=== PATIENT | male | born 1955 | race Caucasian/White ===

== ENCOUNTER 2020-05-17 10:00 | Outpatient (RCR) | payer OTHER, SELFPAY | END 2020-05-29 14:51 | disposition other institution (70) | LOC: HO.PT 10:00 | PROVIDERS: Visit Provider Physician Assistant | DX: M54.16 Radiculopathy, lumbar region (principal) | CPT/HCPCS: 97110; 97140; 97161 ==

== ENCOUNTER 2020-07-16 10:20 | Outpatient (REF) | payer SELFPAY ==
[2020-07-16 11:59] LABS: Cholesterol 111 mg/dL
== END 2020-07-16 10:21 | disposition home or self-care (01) ==
LOC: HO.LNC 10:20
PROVIDERS: Visit Provider Pathology Anatomic Pathology & Clinical Pathology
DX: Z13.89 Encounter for screening for other disorder (principal)
CPT/HCPCS: 82465

== ENCOUNTER 2020-08-11 08:07 | Outpatient (REF) | payer OTHER, SELFPAY ==
[2020-08-11 09:02] LABS: MANUAL DIFF FLAG NO
[2020-08-11 09:05] LABS: Basophils Absolute Auto 0.1 X10*3/uL (0.0-0.2); Eosinophils Absolute Auto 0.2 X10*3/uL (0.0-0.4); Eosinophils Percent Auto 3.5 % (0-4); Hematocrit 47.8 % (42-52); Imm Gran Abs Auto 0.03 X10*3/uL (0.00-0.03); Imm Gran Pct Auto 0.5 % (0.0-0.4); Lymphocytes Absolute Auto 1.4 X10*3/uL (1.2-4.9); Lymphocytes Percent Auto 24.7 % (20-40); Mean Corpuscular HGB Conc 33.5 g/dl (31.0-36.0); Mean Corpuscular Hemoglobin 29.1 pg (27.0-33.0); Mean Corpuscular Volume 87.1 fL (80-98); Monocytes Absolute Auto 0.6 X10*3/uL (0.1-1.2); Monocytes Percent Auto 9.8 % (2-11); Neutrophils Absolute Auto 3.5 X10*3/uL (2.0-8.3); Neutrophils Percent Auto 60.5 % (45-73); Platelet Count 244 X10*3/uL (160-400); Red Blood Count 5.49 X10*6/uL (4.60-5.80); White Blood Count 5.7 X10*3/uL (4.8-10.8)
[2020-08-11 09:27] LABS: Estimated Average Glucose 177 mg/dL; Hemoglobin A1c % 7.8 %
[2020-08-11 09:38] LABS: Alanine Aminotransferase 23 U/L (0-40); Albumin Level 4.4 g/dL (3.5-5.0); Alkaline Phosphatase 59 U/L (39-117); Anion Gap 15 (12-20); Aspartate Amino Transferase 22 U/L (5-37); Bilirubin Total 1.3 mg/dL (0.0-1.0); Blood Urea Nitrogen 31 mg/dL (9-16); Calcium 9.5 mg/dL (8.4-10.2); Carbon Dioxide 26 mmol/L (22-29); Chloride 103 mmol/L (96-108); Cholesterol 139 mg/dL; Estimated Glomerular Filt Rate 58; Glucose Fasting 194 mg/dL (60-99); HDL Cholesterol 39 mg/dL; Iron 126 mcg/dL (45-160); LDL Cholesterol Calculated 83 mg/dl; Percent Iron Saturation 36 % (15-50); Potassium 4.5 mmol/l (3.3-5.1); Sodium 139 mmol/L (135-145); Total Iron Binding Capacity 354 mcg/dL (228-428); Total Protein 6.5 g/dL (6.5-8.0); Triglycerides 85 mg/dL; Unsaturated Iron Binding 228 ug/dL
[2020-08-11 10:01] LABS: Creatinine Urine 137.83 mg/dL; Ferritin 28 ng/mL (20-250); Microalbumin Urine < 5.0 mg/L; Prostate Specific Antigen Scr 1.52 ng/mL (<0.05-4.0); TSH reflex Free T4 2.23 mIU/mL (0.32-4.0)
== END 2020-08-11 08:08 | disposition home or self-care (01) ==
LOC: HO.LAB 08:07
PROVIDERS: Nurse Practitioner Family; PCP Internal Medicine; Visit Provider Nurse Practitioner Gerontology
DX: Z00.00 Encounter for general adult medical examination without abnormal findings (principal); E11.42 Type 2 diabetes mellitus with diabetic polyneuropathy; E61.1 Iron deficiency; Z12.5 Encounter for screening for malignant neoplasm of prostate
CPT/HCPCS: 36415; 80053; 80061; 82043; 82728; 83036; 83540; 84153; 84443; 85025

== ENCOUNTER → 2020-08-13 09:48 | Outpatient (BNVA) | payer OTHER, SELFPAY | PROVIDERS: PCP Internal Medicine; Referring Provider Internal Medicine; Visit Provider Nurse Practitioner Gerontology | DX: E11.42 Type 2 diabetes mellitus with diabetic polyneuropathy (principal); E78.5 Hyperlipidemia, unspecified; I10 Essential (primary) hypertension; Z79.4 Long term (current) use of insulin; Z79.899 Other long term (current) drug therapy | CPT/HCPCS: 82947; 99212 ==

== ENCOUNTER 2020-09-17 22:23 | Emergency (ER) | payer OTHER, SELFPAY ==
--- NOTE | ~2020-09-17 | XR_ITS ---
EXAMINATION: XR FINGER, LEFT CLINICAL INFORMATION: Left index finger injury COMPARISON: 10/02/2019 TECHNIQUE: Three views of the left index finger. FINDINGS: The bones and soft tissues are normal. No fracture. Alignment is anatomic. Joint spaces are maintained. XR/XR finger LT min 2V IMPRESSION: No acute osseous abnormality.
[2020-09-17 22:28] VITALS: BP 165/75; PULSE 79; RESP 18; TEMP 37; O2SAT 100; BMI 25.7
[2020-09-18 01:23] VITALS: BP 126/75; PULSE 74; RESP 18; TEMP 37.1; O2SAT 97
[2020-09-18 02:12] VITALS: BP 142/79; PULSE 69; RESP 16; O2SAT 98
--- NOTE | 2020-09-18 02:26 | ED_ITS ---
HPI - Extremity Problem General Chief complaint: Extremity Injury, Upper Stated complaint: Hand pain Time Seen by Provider: 09/18/20 02:26 Source: patient Mode of arrival: ambulatory History of Present Illness HPI Narrative: This is a 64-year-old male who presents with having ?jammed his left index finger? on either the fence earlier than this evening and states that he was having initially some difficulty bending his finger at the MCP, but states that since that time it is gradually improved and now he states he has full range of motion with pain only at 3/10. Related Data Home Medications Medication Instructions Recorded Confirmed ferrous sulfate 325 mg (65 mg 325 mg PO DAILY 06/06/20 08/13/20 iron) tablet multivitamin 1 tab PO DAILY 06/06/20 08/13/20 omega-3 fatty acids 1,000 mg 1,000 mg PO DAILY 06/06/20 08/13/20 capsule omeprazole 20 mg capsule,delayed 20 mg PO DAILY 06/06/20 08/13/20 release Previous Rx's Medication Instructions Recorded atorvastatin 20 mg tablet 20 mg PO DAILY 90 Days #90 tab 05/20/20 lisinopril 10 mg tablet 10 mg PO DAILY 90 Days #90 tab 05/20/20 hydrochlorothiazide 25 mg tablet 25 mg PO DAILY 90 Days #90 tab 05/31/20 blood sugar diagnostic #300 ea 07/04/20 lancets 28 gauge #300 ea 07/04/20 dulaglutide 0.75 mg/0.5 mL 0.75 mg SUBCUT QWEEK 84 Days #6 ml 08/13/20 subcutaneous pen injector metformin 1,000 mg tablet 1,000 mg PO BID 90 Days #180 tab 08/13/20 Allergies Allergy/AdvReac Type Severity Reaction Status Date / Time No Known Allergies Allergy Verified 09/17/20 22:28 [No Known Allergies*] Review of Systems Review of Systems: Pertinent positives and negatives as stated in HPI 10 point review of systems is otherwise negative. [facility] Past Medical History Source: nursing notes reviewed Medical History Diabetes Enlarged prostate HTN (hypertension) Hyperlipidemia Hyperlipidemia LDL goal <100 Iron deficiency Renal insufficiency Subjective memory complaints Type 2 diabetes mellitus with diabetic polyneuropathy Surgical History History of foot surgery Family History Family History Father Diabetes Mother Lung cancer Son No problems noted. Son No problems noted. Son No problems noted. Son No problems noted. Son No problems noted. Son No problems noted. Daughter No problems noted. Daughter No problems noted. Paternal Grandmother Diabetes Social History Social History Household Members: Spouse Alcohol intake: current Alcohol intake frequency: holidays/special occasions only Alcohol type: beer, wine, hard liquor and other Smoking Status: Never smoker Use of substances other than those prescribed or required for medical reasons: No Advance Directives: No Physical Exam Vital Signs: Vital Signs: Last Vital Signs Temp 98.8 F 09/18/20 01:23 Pulse 69 09/18/20 02:12 Resp 16 09/18/20 02:12 BP 142/79 H 09/18/20 02:12 Pulse Ox 98 09/18/20 02:12 Body Mass Index 25.7 VITAL SIGNS: Reviewed. GENERAL: Well developed, well nourished, in no acute distress. NOSE: Nares patent bilateral OROPHARYNX: no oral lesions noted, posterior pharynx clear NECK: Supple, no adenopathy LUNGS: Normal breath sounds. No adventitious sounds or accessory muscle use. SpO2<98> CARDIOVASCULAR: Regular rate and rhythm without noted murmurs ABDOMEN: Soft, non-tender, non-distended with bowel sounds. LEFT INDEX FINGER: No obvious deformity, capillary refill less than 3 seconds, mild tenderness palpation at the MCP but full range of motion noted NEUROLOGIC: Alert and oriented x 4. Strength and sensation to light touch were grossly intact x 4. Course Course Course Narrative: This is a 64-year-old male with history and clinical presentation consistent with jammed finger which was further corroborated by x- rays that were negative for dislocation or fracture. Patient was informed of results and discharged in stable condition. Discharge Plan Discharge Clinical Impression: Jammed interphalangeal joint of finger of left hand Qualifiers: Encounter type: initial encounter Qualified Code(s): S69.92XA - Unspecified injury of left wrist, hand and finger(s), initial encounter Patient Disposition: Home, Self-Care Instructions: Jammed Finger (ED) Additional Instructions: Resume all home medications as prescribed. Continue to maintain normal range of motion of the injured finger to prevent stiffness. Do not hesitate to return to the emergency department for any acute worsening of your symptoms. Prescriptions: No Action atorvastatin 20 mg tablet 20 mg PO DAILY 90 Days Qty: 90 RF: 1 lisinopril 10 mg tablet 10 mg PO DAILY 90 Days Qty: 90 RF: 1 hydrochlorothiazide 25 mg tablet 25 mg PO DAILY 90 Days Qty: 90 RF: 0 (DME) FreeStyle Lite Strips Strip See Rx Instructions .ROUTE .MEDSUPPLY Qty: 300 RF: 3 (DME) lancets [FreeStyle Lancets] 28 gauge misc See Rx Instructions .ROUTE .MEDSUPPLY Qty: 300 RF: 3 omeprazole 20 mg capsule,delayed release(DR/EC) 20 mg PO DAILY RF: 0 ferrous sulfate 325 mg (65 mg iron) tablet 325 mg PO DAILY RF: 0 omega-3 fatty acids [Fish Oil Concentrate] 1,000 mg capsule 1,000 mg PO DAILY RF: 0 multivitamin Tablet 1 tab PO DAILY RF: 0 Trulicity 0.75 mg/0.5 mL pen injector 0.75 mg subcut QWEEK 84 Days Qty: 6 RF: 1 metformin 1,000 mg tablet 1,000 mg PO BID 90 Days Qty: 180 RF: 1 Referrals: Caitlyn Bailey MD [Primary Care Provider] - 2 days (Re-evaluation after jamming finger left index.)
== END 2020-09-18 02:55 | disposition home or self-care (01) ==
PROVIDERS: Emergency Provider Student in an Organized Health Care Education/Training Program; PCP Internal Medicine
DX: S69.92XA Unspecified injury of left wrist, hand and finger(s), initial encounter (principal); W22.8XXA Striking against or struck by other objects, initial encounter; Y93.89 Activity, other specified; Y92.017 Garden or yard in single-family (private) house as the place of occurrence of the external cause; Y99.9 Unspecified external cause status
CPT/HCPCS: 73140; 99283; 99284

== ENCOUNTER 2020-11-17 10:25 | Outpatient (REF) | payer OTHER, SELFPAY ==
[2020-11-17 11:31] LABS: Estimated Average Glucose 169 mg/dL; Hemoglobin A1c % 7.5 %
== END 2020-11-17 10:26 | disposition home or self-care (01) ==
LOC: HO.LAB 10:25
PROVIDERS: PCP Internal Medicine; Visit Provider Nurse Practitioner Gerontology
DX: E11.42 Type 2 diabetes mellitus with diabetic polyneuropathy (principal)
CPT/HCPCS: 36415; 83036

== ENCOUNTER → 2020-11-19 09:49 | Outpatient (BNVA) | payer OTHER, SELFPAY | PROVIDERS: PCP Internal Medicine; Visit Provider Nurse Practitioner Gerontology | DX: E11.42 Type 2 diabetes mellitus with diabetic polyneuropathy (principal); E78.5 Hyperlipidemia, unspecified; Z68.25 Body mass index [BMI] 25.0-25.9, adult; Z79.84 Long term (current) use of oral hypoglycemic drugs; Z71.3 Dietary counseling and surveillance | CPT/HCPCS: 82947; 99212 ==

== ENCOUNTER 2020-12-05 11:17 | Outpatient (REF) | payer OTHER, SELFPAY ==
--- NOTE | ~2020-12-05 | XR_ITS ---
EXAMINATION: XR KNEE, LEFT CLINICAL INFORMATION: M25.562 - Pain in left knee Patient Shielded? COMPARISON: None TECHNIQUE: Four views of the left knee. FINDINGS: There is hardware in the distal femur and proximal tibia consistent with prior ACL repair. Hardware is intact. There is no fracture, dislocation, or bony destructive process. No periostitis. No definite suprapatellar effusion. Hoffa's fat pad appears normal. There is no focal joint narrowing medial or lateral compartment. No lateralization or tilting patella. There is mild spurring at the quadriceps insertion patella and at the inferior patellar pole. XR/XR knee LT 4V IMPRESSION: 1. Postsurgical changes consistent with prior ACL repair. No definite effusion. 2. No fracture, destructive process, or erosive changes. 3. Spurring quadriceps insertion and origin patellar tendon.
== END 2020-12-05 11:18 | disposition home or self-care (01) ==
LOC: HO.HMGCX 11:17
PROVIDERS: PCP Internal Medicine; Visit Provider Nurse Practitioner Family
DX: M25.562 Pain in left knee (principal)
CPT/HCPCS: 73564

== ENCOUNTER → 2021-02-18 08:58 | Outpatient (BNVA) | payer OTHER, SELFPAY | PROVIDERS: PCP Nurse Practitioner Family; Visit Provider Nurse Practitioner Gerontology | DX: E11.42 Type 2 diabetes mellitus with diabetic polyneuropathy (principal); D64.9 Anemia, unspecified; E78.5 Hyperlipidemia, unspecified; Z79.4 Long term (current) use of insulin; Z79.899 Other long term (current) drug therapy | CPT/HCPCS: 82947; 99212 ==

== ENCOUNTER 2021-06-08 07:51 | Outpatient (REF) | payer OTHER, SELFPAY ==
[2021-06-08 09:15] LABS: Alanine Aminotransferase 24 U/L (0-40); Albumin Level 4.3 g/dL (3.5-5.0); Alkaline Phosphatase 55 U/L (39-117); Anion Gap 12 (12-20); Aspartate Amino Transferase 22 U/L (5-37); Bilirubin Total 0.8 mg/dL (0.0-1.0); Blood Urea Nitrogen 40 mg/dL (9-16); Calcium 9.3 mg/dL (8.4-10.2); Carbon Dioxide 28 mmol/L (22-29); Chloride 106 mmol/L (96-108); Cholesterol 130 mg/dL; Estimated Glomerular Filt Rate 53; Glucose Fasting 171 mg/dL (60-99); HDL Cholesterol 36 mg/dL; LDL Cholesterol Calculated 81 mg/dl; Potassium 4.8 mmol/L (3.3-5.1); Sodium 141 mmol/L (135-145); Total Protein 6.3 g/dL (6.5-8.0); Triglycerides 67 mg/dL
[2021-06-08 09:29] LABS: Prostate Specific Antigen Scr 1.67 ng/mL (<0.05-4.0); TSH reflex Free T4 1.51 uIU/mL (0.32-4.0)
[2021-06-08 10:15] LABS: Creatinine Urine 203.69 mg/dL; Microalbum/Creatinine Ratio Ur 3.4 ug/mg cr
[2021-06-09 11:02] LABS: LDL Cholesterol Direct 80 mg/dL (<100)
== END 2021-06-08 07:52 | disposition home or self-care (01) ==
LOC: HO.LAB 07:51
PROVIDERS: Nurse Practitioner Gerontology; PCP Nurse Practitioner Family; Visit Provider Nurse Practitioner Family
DX: E11.42 Type 2 diabetes mellitus with diabetic polyneuropathy (principal); I10 Essential (primary) hypertension; Z12.5 Encounter for screening for malignant neoplasm of prostate
CPT/HCPCS: 36415; 80053; 80061; 82043; 83721; 84153; 84443

== ENCOUNTER → 2021-06-17 08:29 | Outpatient (BNVA) | payer OTHER, SELFPAY | PROVIDERS: PCP Nurse Practitioner Family; Visit Provider Nurse Practitioner Gerontology | DX: E11.42 Type 2 diabetes mellitus with diabetic polyneuropathy (principal); E78.5 Hyperlipidemia, unspecified | CPT/HCPCS: 82947; 83036; 99212 ==

== ENCOUNTER → 2021-07-04 10:56 | Outpatient (REF) | payer OTHER, SELFPAY ==
--- NOTE | 2021-07-04 10:58 | HM_ITS ---
Conclusion : 1. Patient was monitored for total of 3 days and 1 hour 2. Baseline rhythm iin NSR with average HR of 88 bpm 3. No significant bradycardia or pauses noted 4. Frequent sinus tachycardia with total burden of 29% of HR > 100 bpm 5. Total 2246 PVC accounting for 0.58% of total beats, c/w ocassional PVC 6. No patient reported events MTDD
== END ==
LOC: HO.CARD 10:56
PROVIDERS: Visit Provider Nurse Practitioner Family
DX: R00.1 Bradycardia, unspecified (principal)
CPT/HCPCS: 93242

== ENCOUNTER → 2021-07-24 13:24 | Outpatient (BNVA) | payer OTHER, SELFPAY | PROVIDERS: PCP Nurse Practitioner Family; Referring Provider Nurse Practitioner Family; Visit Provider Internal Medicine | DX: R00.1 Bradycardia, unspecified (principal); I49.3 Ventricular premature depolarization | CPT/HCPCS: 99202 ==

== ENCOUNTER 2021-09-16 07:48 | Outpatient (REF) | payer OTHER, SELFPAY ==
[2021-09-16 08:44] LABS: Anion Gap 13 (12-20); Blood Urea Nitrogen 26 mg/dL (9-16); Calcium 9.5 mg/dL (8.4-10.2); Carbon Dioxide 28 mmol/L (22-29); Chloride 105 mmol/L (96-108); Estimated Glomerular Filt Rate > 60; Potassium 4.5 mmol/L (3.3-5.1); Sodium 141 mmol/L (135-145)
[2021-09-16 09:19] LABS: Creatinine, mg/dL 66.21
[2021-09-16 09:26] LABS: Creatinine, 24Hr Urine 1.6 G/Day (1.0-2.0); Total Volume 24 Hour Urine 2450 mL
[2021-09-16 09:27] LABS: Creatinine (CrCl) 1.19 mg/dL (0.5-1.4); Creatinine Clearance 94.6 mL/min (85-125)
== END 2021-09-16 07:49 | disposition home or self-care (01) ==
LOC: HO.LAB 07:48
PROVIDERS: PCP Internal Medicine; Visit Provider Internal Medicine Hypertension Specialist
DX: N18.31 Chronic kidney disease, stage 3a (principal)
CPT/HCPCS: 36415; 80051; 82310; 82565; 82575; 84520

== ENCOUNTER 2021-12-09 08:43 | Outpatient (REF) | payer MEDICARE, OTHER, SELFPAY ==
[2021-12-09 09:38] LABS: Appearance Urine CLEAR; Color Urine YELLOW; Glucose Urine UA NEG (NEG); Leukocyte Esterase Urine NEG (NEG); Nitrite Urine NEG (NEG); Specific Gravity - Urine 1.025 (1.005-1.025); Urine Blood NEG (NEG); Urine Ketones NEG (NEG); Urine Protein NEG (NEG-TRACE)
[2021-12-09 10:06] LABS: Alanine Aminotransferase 28 U/L (0-40); Albumin Level 4.1 g/dL (3.5-5.0); Alkaline Phosphatase 59 U/L (39-117); Anion Gap 14 (12-20); Aspartate Amino Transferase 32 U/L (5-37); Bilirubin Total 0.8 mg/dL (0.0-1.0); Blood Urea Nitrogen 32 mg/dL (9-16); Calcium 9.3 mg/dL (8.4-10.2); Carbon Dioxide 25 mmol/L (22-29); Chloride 103 mmol/L (96-108); Cholesterol 132 mg/dL; Estimated Glomerular Filt Rate 58; Glucose Fasting 150 mg/dL (60-99); HDL Cholesterol 39 mg/dL; LDL Cholesterol Calculated 83 mg/dl; Potassium 4.1 mmol/L (3.3-5.1); Sodium 138 mmol/L (135-145); Total Protein 6.4 g/dL (6.5-8.0); Triglycerides 52 mg/dL
[2021-12-09 10:18] LABS: Prostate Specific Antigen Scr 1.81 ng/mL (<0.05-4.0); TSH reflex Free T4 1.51 uIU/mL (0.32-4.0)
== END 2021-12-09 08:44 | disposition home or self-care (01) ==
LOC: HO.LAB 08:43
PROVIDERS: PCP Nurse Practitioner Family; Visit Provider Nurse Practitioner Family
DX: Z13.89 Encounter for screening for other disorder (principal)
CPT/HCPCS: 36415; 80053; 80061; 81003; 84153; 84443

== ENCOUNTER 2021-12-09 11:23 | Outpatient (REF) | payer MEDICARE, OTHER, SELFPAY ==
--- NOTE | ~2021-12-09 | XR_ITS ---
EXAMINATION: XR ELBOW, LEFT CLINICAL INFORMATION: Pain. COMPARISON: None TECHNIQUE: AP, lateral, and oblique views of the left elbow. FINDINGS: The bones and soft tissues are normal. No fracture or joint effusion. Alignment is anatomic. Joint spaces are maintained. XR/XR elbow LT 2V IMPRESSION: Unremarkable left elbow exam
== END 2021-12-09 11:24 | disposition home or self-care (01) ==
LOC: HO.HMGCX 11:23
PROVIDERS: Visit Provider Nurse Practitioner Family
DX: Z00.00 Encounter for general adult medical examination without abnormal findings (principal); Z12.5 Encounter for screening for malignant neoplasm of prostate; M25.522 Pain in left elbow; E78.5 Hyperlipidemia, unspecified
CPT/HCPCS: 36415; 73070; 80053; 80061; 81003; 84153; 84443

== ENCOUNTER 2022-01-03 08:53 | Day surgery (SDC) | payer MEDICARE, OTHER, SELFPAY ==
[2021-12-27 14:05] VITALS: BMI 25.2
--- NOTE | 2022-01-02 09:38 | P.CONAN_ITS ---
Documented by User: Jenna Chinchilla NP 01/02/22 09:41 HPI - Anesthesia Eval Consult details Narrative: 66yo M for Upper Endoscopy PMFSH Active Problems Active Problems: All Active Problems (Updated 12/27/21 @ 14:04 by Shabnam Marshall RN) Physical exam (Acute) Screening PSA (prostate specific antigen) (Acute) Left knee pain (Acute) Elevated BUN (Acute) Physical exam (Acute) Bradycardia (Acute) PVC (premature ventricular contraction) (Acute) Elbow pain, left (Acute) HTN (hypertension) (Acute) Type 2 diabetes mellitus with diabetic polyneuropathy (Acute) Hyperlipidemia LDL goal <100 (Acute) Past Medical History Medical History Barretts esophagus Diabetes Enlarged prostate GERD (gastroesophageal reflux disease) Hyperlipidemia Iron deficiency Patellofemoral arthritis of left knee Renal insufficiency Subjective memory complaints Family History Family History Father Diabetes Mother Lung cancer Son No problems noted. Son No problems noted. Son No problems noted. Son No problems noted. Son No problems noted. Son No problems noted. Daughter No problems noted. Daughter No problems noted. Paternal Grandmother Diabetes Surgical History Surgical History History of foot surgery History of left knee surgery History of nasal surgery History of right inguinal hernia repair History of shoulder surgery History of tonsillectomy Hx of colonoscopy Hx of esophagogastroduodenoscopy Social History Social History Household Members: Spouse Housing: House Alcohol intake: current Alcohol intake frequency: holidays/special occasions only Alcohol type: beer, wine, hard liquor and other Patient Tobacco Use Status: Never used Tobacco e-Cigarette/Vaping Use: Never Used Second Hand Smoke Exposure: No Use of substances other than those prescribed or required for medical reasons: No Advance Directives: No Advance Directives Information Provided: Yes service: Yes Current occupational status: retired Cognitive needs: No Hearing needs: No Vision needs: No Meds Allergies Allergy/AdvReac Type Severity Reaction Status Date / Time No Known Allergies Allergy Verified 12/09/21 12:53 [No Known Allergies*] Home Medications Medication Instructions Recorded Confirmed Last Taken Type multivitamin 1 tab PO DAILY 06/06/20 12/27/21 Unknown History omega-3 fatty acids 1,000 mg 1,000 mg PO DAILY 06/06/20 12/27/21 Unknown History capsule (Fish Oil Concentrate) omeprazole 20 mg capsule,delayed 20 mg PO DAILY 06/06/20 12/27/21 Unknown History release antiarthritic combination no.2 900 mg PO 03/06/21 12/09/21 Unknown History mg tablet (glucosamine-chondroitin) Exam Exam Date and Time: January 02, 2022 0938 Height,Weight and Vital Signs: Height 6 ft 1 in Weight 86.75 kg Pertinent Lab Results Pertinent Lab Results: Laboratory Tests 12/09/21 09:04 Sodium 138 Potassium 4.1 Chloride 103 Carbon Dioxide 25 BUN 32 H Creatinine 1.25 Narrative Narrative: Holter 06/2021 Conclusion : 1. Patient was monitored for total of 3 days and 1 hour 2. Baseline rhythm iin NSR with average HR of 88 bpm 3. No significant bradycardia or pauses noted 4. Frequent sinus tachycardia with total burden of 29% of HR > 100 bpm 5. Total 2246 PVC accounting for 0.58% of total beats, c/w ocassional PVC 6. No patient reported events Assessment and Plan Assessment Anesthesia Assessment: Chart Reviewed Documented by User: Radha Brown MD 01/03/22 09:47 [facility] Active Problems Active Problems: All Active Problems (Updated 12/27/21 @ 14:04 by Shabnam Marshall RN) Physical exam (Acute) Screening PSA (prostate specific antigen) (Acute) Left knee pain (Acute) Elevated BUN (Acute) Physical exam (Acute) Bradycardia. HR down to 29- 31 when asleep per patient. Asymptomatic. Seen by cardiology. 3day Holter monitor. No significant bradycardia or pauses noted. No therapy recommended PVC (premature ventricular contraction) (Acute) Elbow pain, left (Acute) HTN (hypertension) (Acute) Type 2 diabetes mellitus with diabetic polyneuropathy (Acute) Hyperlipidemia LDL goal <100 (Acute) Past Medical History Medical History Barretts esophagus Diabetes Enlarged prostate GERD (gastroesophageal reflux disease) Hyperlipidemia Iron deficiency Patellofemoral arthritis of left knee Renal insufficiency Subjective memory complaints Family History Family History Father Diabetes Mother Lung cancer Son No problems noted. Son No problems noted. Son No problems noted. Son No problems noted. Son No problems noted. Son No problems noted. Daughter No problems noted. Daughter No problems noted. Paternal Grandmother Diabetes Family history of problems with anesthesia: No Surgical History Surgical History History of foot surgery History of left knee surgery History of nasal surgery History of right inguinal hernia repair History of shoulder surgery History of tonsillectomy Hx of colonoscopy Hx of esophagogastroduodenoscopy History of Problems with Anesthesia: No Social History Social History Household Members: Spouse Housing: House Alcohol intake: current Alcohol intake frequency: holidays/special occasions only Alcohol type: beer, wine, hard liquor and other Patient Tobacco Use Status: Never used Tobacco e-Cigarette/Vaping Use: Never Used Second Hand Smoke Exposure: No Use of substances other than those prescribed or required for medical reasons: No Advance Directives: No Advance Directives Information Provided: Yes service: Yes Current occupational status: retired Cognitive needs: No Hearing needs: No Vision needs: No Meds Allergies Allergy/AdvReac Type Severity Reaction Status Date / Time No Known Allergies Allergy Verified 12/09/21 12:53 [No Known Allergies*] Home Medications Medication Instructions Recorded Confirmed Last Taken Type multivitamin 1 tab PO DAILY 06/06/20 12/27/21 Unknown History omega-3 fatty acids 1,000 mg 1,000 mg PO DAILY 06/06/20 12/27/21 Unknown History capsule (Fish Oil Concentrate) omeprazole 20 mg capsule,delayed 20 mg PO DAILY 06/06/20 12/27/21 Unknown History release antiarthritic combination no.2 900 mg PO 03/06/21 12/09/21 Unknown History mg tablet (glucosamine-chondroitin) Exam Height,Weight and Vital Signs: Height 6 ft 1 in Weight 86.75 kg Vital Signs Temp Pulse Resp BP Pulse Ox O2 Del Method 01/03/22 09:17 96.9 F 79 15 99/66 97 Room Air Pertinent Lab Results Pertinent Lab Results: Laboratory Tests 12/09/21 09:04 Sodium 138 Potassium 4.1 Chloride 103 Carbon Dioxide 25 BUN 32 H Creatinine 1.25 01/03/22: POC 141 Airway Mallampati Class: I TM Dist: >3cm Neck ROM: Full Loose/Missing/Broken Teeth: No (Per patient ) Heart: RRR Lungs: CTAB Assessment and Plan Assessment Anesthesia Assessment: Anesthesia Plan Discussed Final Anesthetic Review Family History of Problems with Anesthesia: No History of Problems with Anesthesia: No NPO: Yes ASA Class: II Final Preanesthetic Review: No Changes in Pt Med Stat, Meds/Allgs Chart Reviewed, Consent Obtained/Reviewed and Anes Risks/Benef Reviewed Patient Risk: Intermediate Procedure Risk: Low Assessment/Block/Sedation in SS: Assess/Block/Sedation-SS Anesthetic Plan Anesthetic Plan: MAC: Disposition: Standard PACU
[2022-01-03 09:17] VITALS: BP 99/66; PULSE 79; RESP 15; TEMP 36.1; O2SAT 97; BMI 24.6
[2022-01-03] MEDS: Lactated Ringers 1,000 ML 100 ML IVCONT (09:30)
[2022-01-03 09:35] LABS: Glucose, Whole Blood 141 mg/dL (60-115)
[2022-01-03 10:16] VITALS: BP 83/55; PULSE 75; RESP 16; TEMP 37; O2SAT 97
--- NOTE | 2022-01-03 10:20 | PM.OP ---
Brief Operative Note Date of Service: 01/03/22 Pre-op diagnosis: Méndez's Post-op diagnosis: other (Méndez's/GERD) Procedure: EGD with biopsies Surgeon: Johnathan Giang Anesthesia: MAC Was an Casting Operator Helper used for this Procedure?: No Estimated blood loss (mL): 2.0 Pathology: other (A. EG Junction at 35cm) Condition: stable Disposition: PACU
[2022-01-03 10:31] VITALS: BP 99/59; PULSE 74; RESP 16; TEMP 37; O2SAT 95
--- NOTE | 2022-01-03 10:37 | OP_ITS ---
SURGEON: Johnathan Giang MD INDICATIONS: The patient presents for evaluation of reflux and Médnez's esophagus. Full consent was obtained from him for this, including risks of bleeding and perforation. PREOPERATIVE DIAGNOSIS: POSTOPERATIVE DIAGNOSIS: PROCEDURE PERFORMED: Esophagogastroduodenoscopy with biopsies. ESTIMATED BLOOD LOSS: COMPLICATIONS: ANESTHESIA: Monitored anesthesia care. ASSISTANTS: SPECIMENS: PREOPERATIVE DIAGNOSES: History of reflux and Méndez's esophagus. POSTOPERATIVE DIAGNOSES: History of reflux and Méndez's esophagus, minimal hiatal hernia. DESCRIPTION OF PROCEDURE: The patient was placed in the left lateral decubitus position. The Olympus video gastroscope was passed in the posterior oropharynx and upper esophagus under direct vision. The scope was passed slowly to the distal esophagus. The gastroesophageal junction appeared at 40 cm. There was a very minimal irregularity consistent with reflux and possibly tiny areas of Méndez's mucosa. There was no esophagitis. The scope entered into the stomach. The scope was advanced to the pylorus and the duodenum was cannulated to the descending portion. The duodenum including the bulb appeared normal without mass or ulceration. The scope was withdrawn back in the stomach. The gastric antrum and body appeared normal with good peristalsis. The scope was retroflexed visualizing the proximal stomach carefully, which appeared normal, without any sign of mass or ulceration. The scope was straightened and withdrawn back into the esophagus. Biopsies were obtained at the EG junction at 40 cm. Proximal to this the esophageal mucosa appeared normal. The scope was withdrawn from the patient. He tolerated the procedure well and was returned to the recovery area in stable condition. IMPRESSION: 1. History of Méndez's esophagus. 2. Minimal hiatal hernia. PLAN: The results of the biopsies will be checked. He will continue his daily omeprazole. I would recommend a repeat upper endoscopy in 3 years for further surveillance in regard to the Méndez's esophagus. He will see me otherwise on a p.r.n. basis. MD [facility]/MARY LOU / [id number] MTDD
== END 2022-01-03 10:45 | disposition home or self-care (01) ==
PROVIDERS: PCP Nurse Practitioner Family; Visit Provider Internal Medicine
PROC: 0DJ08ZZ Inspection of Upper Intestinal Tract, Via Natural or Artificial Opening Endoscopic (ICD-10-PCS; CPT 43235; principal; 2022-01-03 10:00)
DX: K22.70 Barrett's esophagus without dysplasia (principal); K21.00 Gastro-esophageal reflux disease with esophagitis, without bleeding; K44.9 Diaphragmatic hernia without obstruction or gangrene; I10 Essential (primary) hypertension; E78.5 Hyperlipidemia, unspecified; E11.42 Type 2 diabetes mellitus with diabetic polyneuropathy; Z79.899 Other long term (current) drug therapy; Z79.84 Long term (current) use of oral hypoglycemic drugs
CPT/HCPCS: 43239; 82947; 88305; J3010

== ENCOUNTER → 2022-01-31 09:25 | Outpatient (BNVA) | payer MEDICARE, OTHER, SELFPAY | PROVIDERS: PCP Nurse Practitioner Family; Visit Provider Physician Assistant | DX: M77.02 Medial epicondylitis, left elbow (principal) | CPT/HCPCS: 99202 ==

== ENCOUNTER 2022-03-28 07:50 | Outpatient (REF) | payer MEDICARE, OTHER, SELFPAY ==
[2022-03-28 08:01] LABS: MANUAL DIFF FLAG NO
[2022-03-28 08:51] LABS: Basophils Absolute Auto 0.1 X10*3/uL (0.0-0.2); Basophils Percent Auto 0.8 % (0-2); Eosinophils Absolute Auto 0.2 X10*3/uL (0.0-0.4); Eosinophils Percent Auto 2.8 % (0-4); Hemoglobin 14.8 g/dl (14.0-18.0); Imm Gran Abs Auto 0.03 X10*3/uL (0.00-0.03); Imm Gran Pct Auto 0.4 % (0.0-0.4); Lymphocytes Absolute Auto 1.6 X10*3/uL (1.2-4.9); Lymphocytes Percent Auto 20.7 % (20-40); Mean Corpuscular HGB Conc 34.4 g/dl (31.0-36.0); Mean Corpuscular Hemoglobin 29.6 pg (27.0-33.0); Monocytes Absolute Auto 0.7 X10*3/uL (0.1-1.2); Monocytes Percent Auto 8.7 % (2-11); Neutrophils Absolute Auto 5.3 x10*3/uL (2.0-8.3); Neutrophils Percent Auto 66.6 % (45-73); Platelet Count 303 X10*3/uL (160-400); Red Cell Distribution Width 14.6 % (11.0-16.0); White Blood Count 7.9 X10*3/uL (4.8-10.8)
[2022-03-28 08:58] LABS: Appearance Urine Clear; Color Urine Yellow; Glucose Urine UA Negative (Negative); Leukocyte Esterase Urine Negative (Negative); Nitrite Urine Negative (Negative); Urine Blood Negative (Negative); Urine Ketones Trace mg/dL (Negative); Urine Protein Negative (Neg-Trace)
[2022-03-28 09:10] LABS: Estimated Average Glucose 143 mg/dL; Hemoglobin A1c % 6.6 %
== END 2022-03-28 07:51 | disposition home or self-care (01) ==
LOC: HO.LAB 07:50
PROVIDERS: PCP Nurse Practitioner Family; Referring Provider Internal Medicine Hypertension Specialist; Visit Provider Nurse Practitioner Family
DX: E11.42 Type 2 diabetes mellitus with diabetic polyneuropathy (principal)
CPT/HCPCS: 36415; 80053; 80061; 81003; 83036; 84443; 85025

== ENCOUNTER → 2022-04-30 09:27 | Outpatient (BNVA) | payer MEDICARE, OTHER, SELFPAY | PROVIDERS: PCP Nurse Practitioner Family; Visit Provider Orthopaedic Surgery | DX: M65.352 Trigger finger, left little finger (principal); M72.0 Palmar fascial fibromatosis [Dupuytren] | CPT/HCPCS: 99202 ==

== ENCOUNTER 2022-05-19 13:30 | Day surgery (SDC) | payer MEDICARE, OTHER, SELFPAY ==
[2022-05-19 13:53] VITALS: BMI 24.6
[2022-05-19 13:54] VITALS: BP 123/77; PULSE 74; RESP 16; TEMP 36.3; O2SAT 99
--- NOTE | 2022-05-19 15:25 | P.OP_ITS ---
Operative Note Operative Note Date of Service: 05/19/22 Narrative: Operative Note Preop diagnosis: 1. left small finger Trigger finger Postop diagnosis: 1. left small finger Trigger finger Procedure: 1. left small finger A1 nick release Surgeon: Noelle Grace MD Anesthesia: local block using 1% lidocaine with epinephrine Findings: No locking or catching after A1 nick release EBL: Less than 5 mL Tourniquet time: None Specimens: None Complications: None Disposition: Brought to recovery room in stable condition Plan: Follow-up for 10-14 days for wound check and suture removal Indications: The patient is 66 years old, with a left small finger trigger finger that has been unresponsive to nonoperative management. The risks and benefits of operative treatment including but not limited to risk of damage to blood vessels, nerves, tendons, infection, persistent pain, persistent symptoms, recurrence or possible need for additional surgery were discussed with the patient and the patient wishes to proceed with surgery. Procedure: Once consent was obtained a local block was performed in the preop area using a combination of 1% lidocaine with epinephrine. The patient was then brought back to the operating suite and placed on the operative table in supine position. A tourniquet was applied to the proximal aspect of the left upper extremity and the limb was prepped and draped in a standard surgical fashion. Once assured that we had a good block, a 1.5 cm oblique incision was made centered over the A1 nick of the left small finger . The incision was made through the skin to the subcutaneous tissues using a #15 blade. Careful dissection was made down to the level of the A1 nick using tenotomy scissors, with care being taken to protect the nearby neurovascular structures. A longitudinal incision was made in the A1 nick 1st using a #15 blade, then using tenotomy scissors under direct visualization. The A1 nick was noted to be thickened. Following our A1 nick release, we no longer saw any locking or catching of the digit with flexion and extension. Once satisfied with our A1 nick release the wound was copiously irrigated with normal saline and hemostasis was obtained with a brief period of local pressure. The skin edges were reapproximated with some 5.0 nylon suture material and a sterile dressing was applied. The patient appears to have tolerated the procedure well and with no com plications. All digits were well vascularized at the conclusion of the case.
--- NOTE | 2022-05-19 15:25 | MHC.SHP ---
Pre-Procedural Eval Section A Date of Service: 05/19/22 The patient is an INPATIENT: No Changes since office visit: No Cold of Flu in the past 2 weeks, No New Medical Problems, No Changes in Medication and No Patient answered all questions The History & Physical has been completed within 30 days and I have reviewed it.: Yes Section B Chief Complaint: Trigger finger, left little finger Allergies: Allergies Allergy/AdvReac Type Severity Reaction Status Date / Time No Known Allergies Allergy Verified 04/30/22 09:36 [No Known Allergies*] Plan I have reviewed the history and physical and performed a pertinent physical examination on my patient. No changes have occurred unless specified.
[2022-05-19 15:56] VITALS: BP 138/68; PULSE 68; RESP 18; TEMP 36.6; O2SAT 99
== END 2022-05-19 16:15 ==
LOC: HO.SSS 13:31
PROVIDERS: PCP Nurse Practitioner Family; Visit Provider Orthopaedic Surgery
PROC: (CPT 26055; principal; 2022-05-19 12:30)
DX: M65.352 Trigger finger, left little finger (principal); M72.0 Palmar fascial fibromatosis [Dupuytren]; E11.42 Type 2 diabetes mellitus with diabetic polyneuropathy; E11.22 Type 2 diabetes mellitus with diabetic chronic kidney disease; I12.9 Hypertensive chronic kidney disease with stage 1 through stage 4 chronic kidney disease, or unspecified chronic kidney disease; N18.30 Chronic kidney disease, stage 3 unspecified; Z79.84 Long term (current) use of oral hypoglycemic drugs; Z79.899 Other long term (current) drug therapy; E78.5 Hyperlipidemia, unspecified; E61.1 Iron deficiency; Z98.890 Other specified postprocedural states
CPT/HCPCS: 26055; J0171

== ENCOUNTER → 2022-06-03 09:45 | Outpatient (BNVA) | payer MEDICARE, OTHER, SELFPAY | PROVIDERS: PCP Nurse Practitioner Family; Visit Provider Orthopaedic Surgery | DX: Z47.89 Encounter for other orthopedic aftercare (principal); M72.0 Palmar fascial fibromatosis [Dupuytren]; Z87.39 Personal history of other diseases of the musculoskeletal system and connective tissue | CPT/HCPCS: 99212 ==

== ENCOUNTER 2022-07-24 08:56 | Outpatient (REF) | payer MEDICARE, OTHER, SELFPAY | END 2022-07-24 08:57 | disposition home or self-care (01) | LOC: HO.SH 08:56 | PROVIDERS: Visit Provider Nurse Practitioner Family | DX: H90.3 Sensorineural hearing loss, bilateral (principal); H93.13 Tinnitus, bilateral | CPT/HCPCS: 92557; 92567 ==

== ENCOUNTER 2022-10-09 08:38 | Outpatient (REF) | payer MEDICARE, OTHER, SELFPAY ==
[2022-10-09 08:47] LABS: MANUAL DIFF FLAG NO
[2022-10-09 09:02] LABS: Basophils Absolute Auto 0.1 X10*3/uL (0.0-0.2); Eosinophils Absolute Auto 0.3 X10*3/uL (0.0-0.4); Eosinophils Percent Auto 3.8 % (0-4); Hematocrit 47.7 % (42.0-52.0); Hemoglobin 15.5 g/dl (14.0-18.0); Imm Gran Abs Auto 0.03 X10*3/uL (0.00-0.03); Imm Gran Pct Auto 0.4 % (0.0-0.4); Lymphocytes Absolute Auto 1.8 X10*3/uL (1.2-4.9); Lymphocytes Percent Auto 24.9 % (20-40); Mean Corpuscular HGB Conc 32.5 g/dl (31.0-36.0); Mean Corpuscular Hemoglobin 27.7 pg (27.0-33.0); Mean Corpuscular Volume 85.3 fL (80.0-98.0); Mean Platelet Volume 9.1 fL (9.4-12.4); Monocytes Absolute Auto 0.6 X10*3/uL (0.1-1.2); Monocytes Percent Auto 8.1 % (2-11); Neutrophils Absolute Auto 4.4 x10*3/uL (2.0-8.3); Neutrophils Percent Auto 61.8 % (45-73); Platelet Count 262 X10*3/uL (160-400); Red Blood Count 5.59 X10*6/uL (4.60-5.80); Red Cell Distribution Width 14.5 % (11.0-16.0)
[2022-10-09 09:32] LABS: Estimated Average Glucose 148 mg/dL; Hemoglobin A1c % 6.8 %
[2022-10-09 09:45] LABS: Alanine Aminotransferase 28 U/L (0-40); Albumin Level 4.2 g/dL (3.5-5.0); Alkaline Phosphatase 54 U/L (39-117); Anion Gap 14 (12-20); Aspartate Amino Transferase 28 U/L (5-37); Bilirubin Total 0.8 mg/dL (0.0-1.0); Blood Urea Nitrogen 29 mg/dL (9-16); Calcium 9.2 mg/dL (8.4-10.2); Carbon Dioxide 26 mmol/L (22-29); Chloride 107 mmol/L (96-108); Cholesterol 138 mg/dL; Estimated Glomerular Filt Rate 49; Glucose Fasting 141 mg/dL (60-99); HDL Cholesterol 44 mg/dL; LDL Cholesterol Calculated 82 mg/dl; Potassium 4.6 mmol/L (3.3-5.1); Sodium 142 mmol/L (135-145); Total Protein 6.2 g/dL (6.5-8.0); Triglycerides 63 mg/dL
[2022-10-09 10:03] LABS: TSH reflex Free T4 2.12 uIU/mL (0.32-4.0)
[2022-10-09 11:22] LABS: Appearance Urine Clear; Color Urine Yellow; Glucose Urine UA Negative (Negative); Leukocyte Esterase Urine Negative (Negative); Nitrite Urine Negative (Negative); Urine Blood Negative (Negative); Urine Ketones Negative (Negative); Urine Protein Negative (Neg-Trace)
[2022-10-09 12:12] LABS: Creatinine Urine 136.62 mg/dL; Microalbumin Urine < 5.0 mg/L
== END 2022-10-09 08:39 | disposition home or self-care (01) ==
LOC: HO.LAB 08:38
PROVIDERS: PCP Nurse Practitioner Family; Visit Provider Nurse Practitioner Family
DX: E11.42 Type 2 diabetes mellitus with diabetic polyneuropathy (principal)
CPT/HCPCS: 36415; 80053; 80061; 81003; 82043; 83036; 84443; 85025

== ENCOUNTER 2022-10-17 11:40 | Outpatient (REF) | payer MEDICARE, OTHER, SELFPAY ==
[2022-10-20 17:48] LABS: Lyme Abs Screen <0.90 index
== END 2022-10-17 11:41 | disposition home or self-care (01) ==
LOC: HO.LAB 11:40
PROVIDERS: Internal Medicine; PCP Nurse Practitioner Family; Visit Provider Nurse Practitioner Family
DX: T14.8XXA Other injury of unspecified body region, initial encounter (principal); R79.9 Abnormal finding of blood chemistry, unspecified; W57.XXXA Bitten or stung by nonvenomous insect and other nonvenomous arthropods, initial encounter
CPT/HCPCS: 36415; 86617; 86618

== ENCOUNTER 2022-11-20 09:17 | Outpatient (REF) | payer MEDICARE, OTHER, SELFPAY ==
[2022-11-24 23:48] LABS: A. Phagocytphilium DNA,RT-PCR NOT DETECTED (NOT DETECTED); Babesia Microti DNA, RT-PCR NOT DETECTED (NOT DETECTED); Borrelia Miyamotoi,DNA RT-PCR NOT DETECTED (NOT DETECTED); E.Chaffeensis DNA RT-PCR NOT DETECTED (NOT DETECTED); Lyme(Borrelia ssp)DNA RT-PCR NOT DETECTED (NOT DETECTED)
== END 2022-11-20 09:18 | disposition home or self-care (01) ==
LOC: HO.LAB 09:17
PROVIDERS: PCP Nurse Practitioner Family; Visit Provider Nurse Practitioner Family
DX: T14.8XXA Other injury of unspecified body region, initial encounter (principal); R79.9 Abnormal finding of blood chemistry, unspecified; E11.22 Type 2 diabetes mellitus with diabetic chronic kidney disease; E11.42 Type 2 diabetes mellitus with diabetic polyneuropathy; N18.30 Chronic kidney disease, stage 3 unspecified; W57.XXXA Bitten or stung by nonvenomous insect and other nonvenomous arthropods, initial encounter; Z20.2 Contact with and (suspected) exposure to infections with a predominantly sexual mode of transmission
CPT/HCPCS: 36415; 87798; 87801

== ENCOUNTER 2023-02-06 08:28 | Outpatient (REF) | payer MEDICARE, OTHER, SELFPAY ==
[2023-02-06 08:43] LABS: MANUAL DIFF FLAG NO
[2023-02-06 09:29] LABS: Appearance Urine Clear; Color Urine Yellow; Glucose Urine UA Negative (Negative); Leukocyte Esterase Urine Negative (Negative); Nitrite Urine Negative (Negative); PH 5.5 (5.0-9.0); Specific Gravity - Urine 1.025 (1.005-1.025); Urine Blood Negative (Negative); Urine Ketones Negative (Negative); Urine Protein Negative (Neg-Trace)
[2023-02-06 09:34] LABS: Basophils Absolute Auto 0.1 X10*3/uL (0.0-0.2); Basophils Percent Auto 1.9 % (0-2); Eosinophils Absolute Auto 0.3 X10*3/uL (0.0-0.4); Eosinophils Percent Auto 5.5 % (0-4); Hematocrit 46.9 % (42.0-52.0); Hemoglobin 15.5 g/dl (14.0-18.0); Imm Gran Abs Auto 0.03 X10*3/uL (0.00-0.03); Imm Gran Pct Auto 0.5 % (0.0-0.4); Lymphocytes Absolute Auto 1.6 X10*3/uL (1.2-4.9); Mean Corpuscular Hemoglobin 28.9 pg (27.0-33.0); Mean Corpuscular Volume 87.5 fL (80.0-98.0); Mean Platelet Volume 8.8 fL (9.4-12.4); Monocytes Absolute Auto 0.5 X10*3/uL (0.1-1.2); Monocytes Percent Auto 8.4 % (2-11); Neutrophils Absolute Auto 3.3 x10*3/uL (2.0-8.3); Neutrophils Percent Auto 56.7 % (45-73); Platelet Count 265 X10*3/uL (160-400); Red Blood Count 5.36 X10*6/uL (4.60-5.80); White Blood Count 5.9 X10*3/uL (4.8-10.8)
[2023-02-06 09:56] LABS: Estimated Average Glucose 134 mg/dL; Hemoglobin A1c % 6.3 %
[2023-02-06 11:11] LABS: Alanine Aminotransferase 19 U/L (0-40); Albumin Level 4.1 g/dL (3.5-5.0); Alkaline Phosphatase 51 U/L (39-117); Anion Gap 11 (12-20); Aspartate Amino Transferase 21 U/L (5-37); Bilirubin Total 0.7 mg/dL (0.0-1.0); Blood Urea Nitrogen 31 mg/dL (9-16); Calcium 9.3 mg/dL (8.4-10.2); Carbon Dioxide 29 mmol/L (22-29); Chloride 106 mmol/L (96-108); Cholesterol 135 mg/dL; Estimated Glomerular Filt Rate 48; Glucose Fasting 144 mg/dL (60-99); HDL Cholesterol 42 mg/dL; LDL Cholesterol Calculated 77 mg/dl; Potassium 4.5 mmol/L (3.3-5.1); Sodium 141 mmol/L (135-145); Total Protein 6.3 g/dL (6.5-8.0); Triglycerides 80 mg/dL
[2023-02-06 11:25] LABS: TSH reflex Free T4 2.47 uIU/mL (0.32-4.0)
== END 2023-02-06 08:29 | disposition home or self-care (01) ==
LOC: HO.LAB 08:28
PROVIDERS: PCP Nurse Practitioner Family; Visit Provider Nurse Practitioner Family
DX: E11.42 Type 2 diabetes mellitus with diabetic polyneuropathy (principal); E11.22 Type 2 diabetes mellitus with diabetic chronic kidney disease; R79.9 Abnormal finding of blood chemistry, unspecified; N18.30 Chronic kidney disease, stage 3 unspecified; Z12.5 Encounter for screening for malignant neoplasm of prostate
CPT/HCPCS: 36415; 80053; 80061; 81003; 83036; 84153; 84443; 85025

== ENCOUNTER 2023-02-12 09:05 | Outpatient (AMB) | payer MEDICARE, OTHER, SELFPAY ==
[2023-02-12 09:18] VITALS: BP 116/78; PULSE 86; O2SAT 100; BMI 25.9
--- NOTE | 2023-02-12 09:18 | A.OFFPC_ITS ---
Vital Signs 02/12/23 09:18 Height 6 ft 1 in Weight 196 lb 2 oz BMI 25.9 BP 116/78 Blood Pressure Location Rt brachial Position Sitting Pulse 86 Pulse Source Pulse Oximeter Pulse Oximetry (%) 100 Oxygen Delivery Method Room Air Intake Visit Reasons: 4m follow up Allergies No Known Allergies [No Known Allergies*] Allergy (Verified 02/12/23 09:51) Medication List - Last Reconciled 02/12/23 by OVI Lai antiarthritic combination no.2 (glucosamine-chondroitin) mg PO atorvastatin 20 mg PO DAILY blood sugar diagnostic (FreeStyle Lite Strips) As directed three times a day cetirizine (All Day Allergy (cetirizine)) 10 mg PO DAILY PRN dulaglutide 3 mg subcut QWEEK 90 days ferrous sulfate 325 mg PO DAILY 90 days hydrochlorothiazide 25 mg PO DAILY lancets (FreeStyle Lancets) As directed three time a day lisinopril 10 mg PO DAILY 90 days metformin 1,000 mg PO BID multivitamin 1 tab PO DAILY omega-3 fatty acids (Fish Oil Concentrate) 1,000 mg PO DAILY omeprazole 20 mg PO DAILY sildenafil 25 mg PO DAILY PRN 14 days Tobacco use date assessed: 02/12/23 Fall risk assessment: No Falls in past year Last assessed Fall Risk: 02/12/23 Dental Screening Dental Screen Date: 02/12/23 Did you have a dental visit in the last 12 months?: Yes Did you have a dental problem in the last 6 months where you did not have access to dental care?: No Was dental information given to patient?: Patient has dentist HPI 4m follow up HPI Details Pt is a diabetic, on an GEOVANNY and a statin. Last A1c was 6.3, microalbumin is up to date. Denies polyuria, polydipsia, and neuropathy. Pt denies any signs and symptoms of hypoglycemia and does know how to correct it. Pt follows up with nephrology. Eye exam is scheduled. Pt reports dermatitis to his ear. Will refer to dermatology. [facility] Medical History Barretts esophagus CKD (chronic kidney disease) stage 3, GFR 30-59 ml/min Diabetes Enlarged prostate GERD (gastroesophageal reflux disease) HTN (hypertension) Hyperlipidemia Hyperlipidemia LDL goal <100 Iron deficiency Patellofemoral arthritis of left knee Renal insufficiency Subjective memory complaints Type 2 diabetes mellitus with diabetic polyneuropathy Surgical History History of foot surgery History of left knee surgery History of nasal surgery History of right inguinal hernia repair History of shoulder surgery History of tonsillectomy Hx of colonoscopy Hx of esophagogastroduodenoscopy Family History Father Diabetes Mother Lung cancer Son No problems noted. Son No problems noted. Son No problems noted. Son No problems noted. Son No problems noted. Son No problems noted. Daughter No problems noted. Daughter No problems noted. Paternal Grandmother Diabetes Social History Household Members: Spouse Housing: House Alcohol intake: current Alcohol intake frequency: holidays/special occasions only Alcohol type: beer, wine, hard liquor and other Patient Tobacco Use Status: Never used Tobacco e-Cigarette/Vaping Use: Never Used Second Hand Smoke Exposure: No service: Yes Current occupational status: retired Cognitive needs: No Hearing needs: No Vision needs: No Questionnaire Thrive Questionnaire Date Thrive assessed: 12/09/21 PETAR-7 AMB Questionnaire PETAR-7 Date PETAR - 7 assessed: 12/09/21 Source: Developed by Drs. Johnathan Haas, Rosalia Fonseca, Abelardo Smith and colleagues, with an educational ignacio from [employer]. Review of Systems Const Reports as per HPI Physical exam (Primary Care) Vital Signs: Last Vital Signs Pulse 86 02/12/23 09:18 BP 116/78 02/12/23 09:18 Pulse Ox 100 02/12/23 09:18 Oxygen Delivery Method Room Air 02/12/23 09:18 BMI result Body Mass Index 25.9 Tobacco/Smoking Status: Tobacco use Status Tobacco use date assessed 02/12/23 02/12/23 09:23 Patient Tobacco Use Status Never used Tobacco 02/12/23 09:23 e-Cigarette/Vaping Use Never Used 02/12/23 09:23 Thrive Assessment: Date of Thrive Assessment Date Thrive assessed 12/09/21 02/12/23 09:23 Const General: cooperative Orientation/consciousness: patient oriented x3 Resp Effort & Inspection: normal respiratory effort Auscultation: clear to auscultation bilaterally Cardio Rate: regular rate Rhythm: regular rhythm Heart sounds: S1 normal heart sound present and S2 normal heart sound present Skin Other: upper anti helix of left ear with macular discoloration, dry, dry feeling to tip of superior helix Neuro General: patient oriented x3 Extrem Other: bilat feet: minimal sensation with use of monofilament to 2nd toes Psych Appearance: grossly normal Mental Status: mental status grossly normal Speech and movement: Normal speech and movement present Affect: normal affect Attitude: cooperative Thought process: Normal thought process present Thought content: Normal thought content present Insight: Good insight present (Psych) Judgement: Good judgement present (Psych) Assessment and Plan Assessment & Plan (1) Type 2 diabetes mellitus with diabetic polyneuropathy: Code(s): E11.42 - Type 2 diabetes mellitus with diabetic polyneuropathy Plan: Continue current medications (2) Dermatitis of external ear: Code(s): L30.9 - Dermatitis, unspecified Plan: Referred to dermatology Plan The patient agreed to the use of a biomedical engineering professor for this encounter. Scribed for OVI Riggins by Miladys Ramos biomedical engineering professor, on 02/12/2023 at 09:55 EST. Orders: Referrals Dermatology Referral L30.9 - Dermatitis, unspecified Medications: Changed From dulaglutide 3 mg subcut QWEEK 90 days 13 mL 4RF E11.42 - Type 2 diabetes mellitus with diabetic polyneuropathy To dulaglutide 3 mg (0.5 mL) subcut QWEEK 6.5 mL 4RF 90 days E11.42 - Type 2 diabetes mellitus with diabetic polyneuropathy Coding Level of Care Code Est Pt Level 3 (38844) Diagnoses Type 2 diabetes mellitus with diabetic polyneuropathy E11.42 Dermatitis of external ear L30.9
== END 2023-02-12 10:19 | disposition home or self-care (01) ==
PROVIDERS: Visit Provider Nurse Practitioner Family
DX: E11.42 Type 2 diabetes mellitus with diabetic polyneuropathy (principal); L30.9 Dermatitis, unspecified
CPT/HCPCS: 99213

== ENCOUNTER 2023-03-31 09:04 | Outpatient (REF) | payer MEDICARE, OTHER, SELFPAY ==
[2023-03-31 10:04] LABS: Anion Gap 12 (12-20); Blood Urea Nitrogen 34 mg/dL (9-16); Calcium 9.6 mg/dL (8.4-10.2); Carbon Dioxide 27 mmol/L (22-29); Chloride 106 mmol/L (96-108); Estimated Glomerular Filt Rate 54; Glucose Random 115 mg/dL (60-115); Potassium 4.6 mmol/L (3.3-5.1); Sodium 140 mmol/L (135-145)
[2023-03-31 10:50] LABS: Total Protein Urine Random < 7 mg/dL (<12)
== END 2023-03-31 09:05 | disposition home or self-care (01) ==
LOC: HO.LAB 09:04
PROVIDERS: PCP Nurse Practitioner Family; Visit Provider Internal Medicine Hypertension Specialist
DX: E10.22 Type 1 diabetes mellitus with diabetic chronic kidney disease (principal); E10.29 Type 1 diabetes mellitus with other diabetic kidney complication; N18.2 Chronic kidney disease, stage 2 (mild)
CPT/HCPCS: 36415; 80048; 82570; 84156

== ENCOUNTER 2023-06-10 08:53 | Outpatient (REF) | payer MEDICARE, OTHER, SELFPAY ==
[2023-06-10 10:02] LABS: Blood Urea Nitrogen 33 mg/dL (9-16); Estimated Glomerular Filt Rate 49
== END 2023-06-10 08:54 | disposition home or self-care (01) ==
LOC: HO.LAB 08:53
PROVIDERS: PCP Nurse Practitioner Family; Visit Provider Nurse Practitioner Family
DX: R79.9 Abnormal finding of blood chemistry, unspecified (principal); N18.30 Chronic kidney disease, stage 3 unspecified
CPT/HCPCS: 36415; 82565; 84520

== ENCOUNTER 2023-06-13 09:46 | Outpatient (AMB) | payer MEDICARE, OTHER, SELFPAY ==
--- NOTE | 2023-06-13 11:01 | AM.OFFWIN_ITS ---
Intake Vital Signs 06/13/23 11:03 Height 6 ft 1 in Weight 88.961 kg BMI 25.9 BP 118/64 Blood Pressure Location Lt brachial Position Sitting Pulse 88 Pulse Source Pulse Oximeter Temp 98.2 F Temp Source Temporal Artery Scan Pulse Oximetry (%) 98 Oxygen Delivery Method Room Air Intake Visit Reasons: EP sinus cough body aches Intake Note: Patient here for congestion, cough and body aches and mucus that is dark green. Has tested for covid which came back negative. Patient Tobacco Use Status: Never used Tobacco Allergies No Known Allergies [No Known Allergies*] Allergy (Verified 06/13/23 11:05) Do you need a note to return to daycare/school/sports/work: No HPI HPI Comments History of Present Illness Details 67-year-old male presents with 2 weeks o f recurrent upper respiratory symptoms with thick green dark nasal drainage and sputum production. He states to be more tired than usual, usually walks at least 2 miles per day with his dogs, and was unable to do that over the past 2 days. He does report subjective fevers and chills, but does not report any chest pain or pressure, palpitations, nausea, vomiting,, or edema PFSH Medical History Barretts esophagus CKD (chronic kidney disease) stage 3, GFR 30-59 ml/min Diabetes Enlarged prostate GERD (gastroesophageal reflux disease) HTN (hypertension) Hyperlipidemia Hyperlipidemia LDL goal <100 Iron deficiency Patellofemoral arthritis of left knee Renal insufficiency Subjective memory complaints Type 2 diabetes mellitus with diabetic polyneuropathy Surgical History History of foot surgery History of left knee surgery History of nasal surgery History of right inguinal hernia repair History of shoulder surgery History of tonsillectomy Hx of colonoscopy Hx of esophagogastroduodenoscopy Family History Father Diabetes Mother Lung cancer Son No problems noted. Son No problems noted. Son No problems noted. Son No problems noted. Son No problems noted. Son No problems noted. Daughter No problems noted. Daughter No problems noted. Paternal Grandmother Diabetes Household Members: Spouse Housing: House Alcohol intake: current Alcohol intake frequency: holidays/special occasions only Alcohol type: beer, wine, hard liquor and other Patient Tobacco Use Status: Never used Tobacco e-Cigarette/Vaping Use: Never Used Second Hand Smoke Exposure: No service: Yes Current occupational status: retired Cognitive needs: No Hearing needs: No Vision needs: No Review of Systems Const Details: Constitutional: No Fever, No Chills ENT/Mouth: No Ear Pain, No Hoarseness, No sore throat, positive sinus pressure, positive nasal drainage Eyes: No Eye Pain, No Swelling, No Redness, No Foreign Body Cardiovascular: Positive productive Chest Pain, No SOB Respiratory: Positive Cough, No Dyspnea Gastrointestinal: No Nausea, No Vomiting, No Diarrhea, No abdominal Pain Genitourinary: No Dysuria, No Hematuria Musculoskeletal: No joint pain, positive Myalgias, No Joint Swelling Skin: No Skin lacerations, No rash Neuro: No Weakness, No Numbness, No Paresthesias, No Dizziness, No Headache All systems reviewed & are unremarkable except as noted in HPI and below Physical Exam Vital Signs: Last Vital Signs Temp 98.2 F 06/13/23 11:03 Pulse 88 06/13/23 11:03 BP 118/64 06/13/23 11:03 Pulse Ox 98 06/13/23 11:03 Oxygen Delivery Method Room Air 06/13/23 11:03 BMI result Body Mass Index 25.9 Appearance: Alert. Oriented X3. No acute distress. Eyes: Pupils equal, round and reactive to light. ENT: Pharynx normal. Nasal congestion noted. Dark green mucus noted. Neck: Normal inspection. Neck supple. CVS: Normal heart rate and rhythm. Pulses normal. Respiratory: No respiratory distress. Lung sounds clear to auscultation all lobes. No chest wall tenderness to palpation. Abdomen: Soft and nontender. No CVA tenderness Skin: Skin warm and dry. Normal skin color. Normal skin turgor. Extremities: No lower extremity edema. Neuro: No motor deficit. No sensory deficit. Assessment & Plan Assessment & Plan (1) Sinusitis: Code(s): J32.9 - Chronic sinusitis, unspecified (2) Bronchitis: Code(s): J40 - Bronchitis, not specified as acute or chronic Plan: 67-year-old male presents with recurrent upper respiratory symptoms that he has had for approximately 2 weeks. Over the past week he has noted worsening cough, fatigue, with thick green dark nasal and sputum production. He reports being more tired than usual, and has been unable to maintain his physical activity level over the past few days. Patient's physical exam is consistent with sinusitis and bronchitis, will treat with Augmentin and Coricidin cough and congestion. Patient verbalized understanding of discharge instructions. Verbalized understandings of signs and symptoms indicating need for emergent intervention. Orders: Orders SARS-CoV2/FLU/RSV Today R09.89 - Other specified symptoms and signs involving the circulatory and respiratory systems Medications: New dextromethorphan-guaifenesin 10-200 mg (Coricidin HBP Chest Congestion-Cough) 1 tab-cap PO Q8H PRN 30 caps 1RF cough Patient Instructions: You were evaluated for upper respiratory symptoms consistent with both sin usitis and bronchitis . Please take Augmentin 875 mg every 12 hours for the next 10 days. Take Coricidin every 8 hours as needed for cough. Alternate Tylenol 650 mg every 6 hours and Motrin 600 mg every 6 hours as needed for pain and fever management. Consider taking these medications 3 hours apart so you have pain and fever management every 3 hours. Write down what time you take these medications to prevent accidental overdose. Motrin is the same medication as Advil and ibuprofen. Tylenol is the same medication as acetaminophen. Thank you for choosing this urgent care for evaluation. Please follow-up with primary care physician as needed. Return to the emergency department for any new, concerning, or worsening symptoms. Coding Level of Care Code Est Pt Level 3 (01590) Diagnoses Sinusitis J32.9 Bronchitis J40
[2023-06-13 11:03] VITALS: BP 118/64; PULSE 88; TEMP 36.8; O2SAT 98; BMI 25.9
== END 2023-06-13 11:31 | disposition home or self-care (01) ==
PROVIDERS: PCP Nurse Practitioner Family; Visit Provider Nurse Practitioner Family
DX: J32.9 Chronic sinusitis, unspecified (principal); J40 Bronchitis, not specified as acute or chronic
CPT/HCPCS: 99213

== ENCOUNTER 2023-06-13 11:13 | Outpatient (REF) | payer MEDICARE, OTHER, SELFPAY ==
[2023-06-13 14:53] LABS: Influenza A PCR NEGATIVE (Negative); Influenza B PCR NEGATIVE (Negative); Resp Syncy Virus RNA Qual PCR NEGATIVE (Negative); SARS COV2 PCR INHOUSE NEGATIVE (Negative)
== END 2023-06-13 11:14 | disposition home or self-care (01) ==
LOC: HO.LNP 11:13
PROVIDERS: Visit Provider Nurse Practitioner Family
DX: Z11.52 Encounter for screening for COVID-19 (principal); Z20.822 Contact with and (suspected) exposure to COVID-19; R09.89 Other specified symptoms and signs involving the circulatory and respiratory systems
CPT/HCPCS: 0241U

== ENCOUNTER 2023-06-16 13:20 | Outpatient (AMB) | payer MEDICARE, OTHER, SELFPAY ==
--- NOTE | 2023-06-16 13:25 | A.OFFPC_ITS ---
Vital Signs 06/16/23 13:29 Height 6 ft 1 in Weight 196 lb BMI 25.9 BP 118/64 Blood Pressure Location Rt brachial Position Sitting Pulse 64 Pulse Source Pulse Oximeter Pulse Oximetry (%) 96 Oxygen Delivery Method Room Air Intake Visit Reasons: AWV [id number] Allergies No Known Allergies [No Known Allergies*] Allergy (Verified 06/16/23 13:29) Tobacco use date assessed: 02/12/23 Fall risk assessment: No Falls in past year Last assessed Fall Risk: 06/16/23 Dental Screening Dental Screen Date: 06/16/23 Did you have a dental visit in the last 12 months?: Yes Did you have a dental problem in the last 6 months where you did not have access to dental care?: No Was dental information given to patient?: Patient has dentist HPI AWV [id number] HPI Details Pt is here for an AWV. Denies fever, chills, and dizziness. Redig of care in scan pile. PPP will be scanned in chart and copy will be given to pt. HPI Comments History of Present Illness Details OV: Pt is a diabetic, on an EGOVANNY and a statin. A1C in office today is . Microalbumin is up to date. Denies polyuria, polydipsia, and neuropathy. Pt denies any signs and symptoms of hypoglycemia and does know how to correct it. [facility] Medical History Barretts esophagus CKD (chronic kidney disease) stage 3, GFR 30-59 ml/min Diabetes Enlarged prostate GERD (gastroesophageal reflux disease) HTN (hypertension) Hyperlipidemia Hyperlipidemia LDL goal <100 Iron deficiency Patellofemoral arthritis of left knee Renal insufficiency Subjective memory complaints Type 2 diabetes mellitus with diabetic polyneuropathy Surgical History History of foot surgery History of left knee surgery History of nasal surgery History of right inguinal hernia repair History of shoulder surgery History of tonsillectomy Hx of colonoscopy Hx of esophagogastroduodenoscopy Family History Father Diabetes Mother Lung cancer Son No problems noted. Son No problems noted. Son No problems noted. Son No problems noted. Son No problems noted. Son No problems noted. Daughter No problems noted. Daughter No problems noted. Paternal Grandmother Diabetes Social History Household Members: Spouse Housing: House Alcohol intake: current Alcohol intake frequency: holidays/special occasions only Alcohol type: beer, wine, hard liquor and other Patient Tobacco Use Status: Never used Tobacco e-Cigarette/Vaping Use: Never Used Second Hand Smoke Exposure: No service: Yes Current occupational status: retired Cognitive needs: No Hearing needs: No Vision needs: No Questionnaire Thrive Questionnaire Date Thrive assessed: 12/09/21 AUDIT C Alcohol Use Questionnaire (AUDIT-C) 1. How often do you have a drink containing alcohol?: Monthly or less 2. How many drinks containing alcohol do you have on a typical day when you are drinking?: 1 or 2 3. How often do you have six or more drinks on one occasion?: Never Total Score: 1 Score Reviewed/Action Taken: No PETAR-7 AMB Questionnaire PETAR-7 Date PETAR - 7 assessed: 12/09/21 Source: Developed by Drs. Johnathan Haas, Rosalia Fonseca, Abelardo Smith and colleagues, with an educational ignacio from [employer]. Review of Systems Const Reports as per HPI Physical exam (Primary Care) Vital Signs: Last Vital Signs Pulse 64 06/16/23 13:29 BP 118/64 06/16/23 13:29 Pulse Ox 96 06/16/23 13:29 Oxygen Delivery Method Room Air 06/16/23 13:29 BMI result Body Mass Index 25.9 Tobacco/Smoking Status: Tobacco use Status Tobacco use date assessed 02/12/23 06/16/23 13:26 Patient Tobacco Use Status Never used Tobacco 06/16/23 13:26 e-Cigarette/Vaping Use Never Used 06/16/23 13:26 Thrive Assessment: Date of Thrive Assessment Date Thrive assessed 12/09/21 06/16/23 13:26 Const General: cooperative Orientation/consciousness: patient oriented x3 Neuro General: patient oriented x3 Psych Appearance: grossly normal Mental Status: mental status grossly normal Speech and movement: Normal speech and movement present Affect: normal affect Attitude: cooperative Thought process: Normal thought process present Thought content: Normal thought content present Insight: Good insight present (Psych) Judgement: Good judgement present (Psych) Assessment and Plan Assessment & Plan (1) Type 2 diabetes mellitus with diabetic polyneuropathy: Code(s): E11.42 - Type 2 diabetes mellitus with diabetic polyneuropathy Plan: Labs ordered Orders: Orders Complete Blood Count Auto Diff Today E11.42 - Type 2 diabetes mellitus with diabetic polyneuropathy UA CC w/rflx Micro + Cult Today E11.42 - Type 2 diabetes mellitus with diabetic polyneuropathy Comprehensive [place]. Panel Fast Today E11.42 - Type 2 diabetes mellitus with diabetic polyneuropathy TSH reflex Free T4 Today E11.42 - Type 2 diabetes mellitus with diabetic polyneuropathy Lipid Panel Today E11.42 - Type 2 diabetes mellitus with diabetic polyneuropathy Coding Diagnoses Type 2 diabetes mellitus with diabetic polyneuropathy E11.42
[2023-06-16 13:29] VITALS: BP 118/64; PULSE 64; O2SAT 96; BMI 25.9
--- NOTE | 2023-06-16 13:43 | AM.OFFVISMDC ---
Intake Vital Signs 06/16/23 13:29 Height 6 ft 1 in Weight 196 lb BMI 25.9 BP 118/64 Blood Pressure Location Rt brachial Position Sitting Pulse 64 Pulse Source Pulse Oximeter Pulse Oximetry (%) 96 Oxygen Delivery Method Room Air Intake Visit Reasons: AWV G0438 Allergies No Known Allergies [No Known Allergies*] Allergy (Verified 06/16/23 13:51) Medication List - Last Reconciled 06/16/23 by OVI Lai amoxicillin-pot clavulanate 875-125 mg 1 tab PO BID 10 days antiarthritic combination no.2 (glucosamine-chondroitin) mg PO atorvastatin 20 mg PO DAILY blood sugar diagnostic (FreeStyle Lite Strips) As directed three times a day cetirizine (All Day Allergy (cetirizine)) 10 mg PO DAILY PRN dextromethorphan-guaifenesin 10-200 mg (Coricidin HBP Chest Congestion-Cough) 1 tab-cap PO Q8H PRN dulaglutide 3 mg (0.5 mL) subcut QWEEK 90 days ferrous sulfate 325 mg PO DAILY 90 days hydrochlorothiazide 25 mg PO DAILY lancets (FreeStyle Lancets) As directed three time a day lisinopril 10 mg PO DAILY 90 days metformin 1,000 mg PO BID multivitamin 1 tab PO DAILY omega-3 fatty acids (Fish Oil Concentrate) 1,000 mg PO DAILY omeprazole 20 mg PO DAILY sildenafil 25 mg PO DAILY PRN 14 days Do you need a note to return to daycare/school/sports/work: No HPI AWV G0438 HPI Details Pt is here for an AWV. Denies fever, chills, and dizziness. [place] of care was not filled out. PPP will be scanned in chart and copy will be given to pt. HPI Comments History of Present Illness Details OV: Pt is a diabetic, on an GEOVANNY and a statin. A1C in office today is 6.2. Microalbumin is up to date. Denies polyuria, polydipsia, does report neuropathy. Pt denies any signs and symptoms of hypoglycemia and does know how to correct it. [facility] Medical History CKD (chronic kidney disease) stage 3, GFR 30-59 ml/min GERD (gastroesophageal reflux disease) Barretts esophagus Patellofemoral arthritis of left knee Type 2 diabetes mellitus with diabetic polyneuropathy Subjective memory complaints Diabetes Enlarged prostate Renal insufficiency Iron deficiency Hyperlipidemia HTN (hypertension) Hyperlipidemia LDL goal <100 Surgical History (Reviewed 02/12/23 @ 09:51 by Giovanni Henriquez [facility]) History of foot surgery History of left knee surgery History of nasal surgery History of right inguinal hernia repair History of shoulder surgery History of tonsillectomy Hx of colonoscopy Hx of esophagogastroduodenoscopy Family History Father Diabetes Mother Lung cancer Son No problems noted. Son No problems noted. Son No problems noted. Son No problems noted. Son No problems noted. Son No problems noted. Daughter No problems noted. Daughter No problems noted. Paternal Grandmother Diabetes Social History Household Members: Spouse Housing: House Alcohol intake: current Alcohol intake frequency: holidays/special occasions only Alcohol type: beer, wine, hard liquor and other Patient Tobacco Use Status: Never used Tobacco e-Cigarette/Vaping Use: Never Used Second Hand Smoke Exposure: No service: Yes Current occupational status: retired Cognitive needs: No Hearing needs: No Vision needs: No Questionnaire Medicare Wellness Checkup [age] What gender do you identify with?: male During the past 4 weeks, how much have you been bothered by emotional problems such as feeling anxious, depressed, irritable, sad or downhearted, and blue?: not at all During the past 4 weeks, has your physical & emotional health limited your social activities with family, friends, neighbors, or groups?: not at all During the past 4 weeks, how much bodily pain have you generally had?: very mild pain During the past 4 weeks, was someone available to help you if you needed & wanted help?: yes, as much as I wanted During the past 4 weeks, what was the hardest physical activity you could do for at least 2 minutes?: very heavy Can you get to places out of walking distance without help? (For eg., can you travel alone on buses, taxis or drive your car?): Yes Can you go shopping for groceries or clothes without someone's help?: Yes Can you prepare your own meals?: Yes Can you do your housework without help?: Yes Because of any health problems, do you need the help of another person with your personal care needs such as eating, bathing, dressing or getting around the house?: No Can you handle your own money without help?: Yes During the past 4 weeks, how would you rate your health in general?: very good During the past 4 weeks how have things been going for you?: pretty well Are you having difficulties driving your car?: no Do you always fasten your seat belt when you are in a car?: yes, usually During past 4 weeks, have you been bothered by the following: never: Falling or dizzy when standing up, Sexual problems?, Trouble eating well?, Teeth or denture problems?, Problems using the telephone? and Tiredness or fatigue? Have you fallen 2 or more times in the past year?: No Are you afraid of falling?: No Are you a smoker?: no During the past 4 weeks, how many drinks of wine, beer, or other alcoholic beverages did you have?: 1 drink or less per week Do you exercise for about 20 minutes 3 or more times a week?: yes, most of the time Have you been given information to help with the following?: yes: Hazards in your house that might hurt you? and yes: Keeping track of your medications? How often do you have trouble taking medicines the way you have been told to take them?: I always take medicine as prescribed How confident are you that you can control & manage most of your health problems?: very confident What is your race?: White Mini Mental State Exam (MMSE) Orientation What is the (year) (season) (date) (day) (month)?: year (2022) Where are we (state) (county) (town or city) (hospital[place] ([place] Registration Name of 3 unrelated objects clearly and slowly, then ask patient to repeat all 3 of them. (1st repeat determines score. Make sure they can repeat all three): object 1, object 2 and object 3 Attention & Calculation (CHOOSE ONE) Spell WORLD backwards (DLROW): 5 letters Recall Ask patient to repeat the 3 items from question #3.: object 1, object 2 and object 3 Language Show patient a wristwatch & ask what it is. Repeat for pencil.: watch and pencil Ask the patient to repeat the phrase 'No ifs, ands, or buts' after you.: correct Ask the patient to 'take a piece of paper with their right hand' 'fold paper in half' 'place paper on floor': take paper in right hand, fold paper in half and place paper on floor Print the sentence 'CLOSE YOUR EYES' on a piece. If patient actually closes eyes then score.: followed written direction Give patient a blank piece of paper & ask to write a sentence. Score if it contains a noun & verb.: sentence contains subject and verb Ask patient to copy figure of intersecting pentagons exactly. Score if all 10 angles & 2 intersects are included.: all 10 angles present & 2 are intersected Score Score: 22 Activity of Daily Living Bathing - sponge bath, tub bath or shower: receives no assistance (gets in/out by self, if usual bathing means Dressing - getting clothes from closets & drawers, including inner/outer garments & fasteners.: gets clothes & gets completely dressed without help Toileting - going to the 'toilet room' for urine/bowel elimination & cleaning self/arranging clothes: goes to toilet room, cleans self, arranges clothes without help Transfer: moves in & out of bed and chair without help (may use support object) Continence: controls urination/bowel movements completely by self Feeding: feeds self without help Total Score: 0 Information obtained from: patient Using telephone: independent Traveling: independent Shopping: independent Preparing meals: independent Housework: independent Taking medicine: independent Managing money: independent PHQ-9 Over the last 2 weeks, how often have you been bothered by any of the following problems? 1. Little interest or pleasure in doing things: not at all 2. Feeling down, depressed, or hopeless: not at all 3. Trouble falling or staying asleep, or sleeping too much: not at all 4. Feeling tired or having little energy: not at all 5. Poor appetite or overeating: not at all 6. Feeling bad about yourself - or that you are a failure or have let yourself or your family down: not at all 7. Trouble concentrating on things, such as reading the newspaper or watching television: not at all 8. Moving or speaking so slowly that other people could have noticed. Or the opposite - being so fidgety or restless that you have been moving around a lot more than usual: not at all 9. Thoughts that you would be better off or of hurting yourself in some way: not at all Total score: 0 Depression Screening Interpretation: Negative Depression Screening Done: Yes 01038 - PHQ-9 Billing: Yes Source: Developed by Drs. Johnathan Haas, Rosalia Fonseca, Abelardo Smith and colleagues, with an educational ignacio from [employer]. Review of Systems Const Reports as per HPI Physical Exam Vital Signs: Last Vital Signs Pulse 64 06/16/23 13:29 BP 118/64 06/16/23 13:29 Pulse Ox 96 06/16/23 13:29 Oxygen Delivery Method Room Air 06/16/23 13:29 BMI result Body Mass Index 25.9 Const General: cooperative Orientation/consciousness: patient oriented x3 Resp Effort & Inspection: normal respiratory effort Auscultation: clear to auscultation bilaterally Cardio Rate: regular rate Rhythm: regular rhythm Heart sounds: S1 normal heart sound present and S2 normal heart sound present Neuro Other: - romberg, can tandem walk, can walk and turn, can rise from sitting to standing, passed whisper test General: patient oriented x3 Extrem Other: bilat feet: + sensation with use of monofilament Psych Appearance: grossly normal Mental Status: mental status grossly normal Speech and movement: Normal speech and movement present Affect: normal affect Attitude: cooperative Thought process: Normal thought process present Thought content: Normal thought content present Insight: Good insight present (Psych) Judgement: Good judgement present (Psych) Results AMB Hemoglobin A1c AMB Hemoglobin A1c 6.2 % Last Edit by JOSÉ MANUEL Garcia on 06/16/23 13:54 Results Reviewed Results Reviewed: Laboratory Last Values Hgb A1c (Clinic) 6.2 % (4.0-6.0) H 06/16/23 13:53 Assessment & Plan Assessment & Plan (1) Type 2 diabetes mellitus with diabetic polyneuropathy: Code(s): E11.42 - Type 2 diabetes mellitus with diabetic polyneuropathy Plan: Labs ordered Plan The patient agreed to the use of a territory sales manager medical for this encounter. Scribed for Giovanni Henriquez, PAINTER [employer] by Miladys Ramos, territory sales manager medical, on 06/16/2023 at 13:40 EST. Orders: Orders Complete Blood Count Auto Diff Today E11.42 - Type 2 diabetes mellitus with diabetic polyneuropathy UA CC w/rflx Micro + Cult Today E11.42 - Type 2 diabetes mellitus with diabetic polyneuropathy AMB Hemoglobin A1c Today E11.42 - Type 2 diabetes mellitus with diabetic polyneuropathy, Z13.9 - Encounter for screening, unspecified Comprehensive [place]. Panel Fast Today E11.42 - Type 2 diabetes mellitus with diabetic polyneuropathy TSH reflex Free T4 Today E11.42 - Type 2 diabetes mellitus with diabetic polyneuropathy Lipid Panel Today E11.42 - Type 2 diabetes mellitus with diabetic polyneuropathy Quality Reporting (2019) Depression/Bipolar (159/160/161/177) PHQ-9: Total score: 0 Coding Level of Care Code Medicare First (G0438) Est Pt Level 3 (14649) Diagnoses Type 2 diabetes mellitus with diabetic polyneuropathy E11.42 CPT Codes Advance Care Planning - Time spent: 16-45 minutes ([id number]) Advance Care Planning Forms completed: Health Care Proxy (pt will bring in a copy), MOLST (pt refuses to file out ('my health care proxy knows what I want )) and Living will (pt reports this is done) Time spent: 16-45 minutes Actual minutes spent: 20
== END 2023-06-16 15:17 | disposition home or self-care (01) ==
PROVIDERS: Visit Provider Nurse Practitioner Family
DX: Z00.00 Encounter for general adult medical examination without abnormal findings (principal); E11.42 Type 2 diabetes mellitus with diabetic polyneuropathy
CPT/HCPCS: 83036; 99213; 99497; G0438

== ENCOUNTER 2023-10-17 09:21 | Outpatient (REF) | payer MEDICARE, OTHER, SELFPAY ==
[2023-10-17 09:30] LABS: MANUAL DIFF FLAG NO
[2023-10-17 09:44] LABS: Basophils Absolute Auto 0.1 X10*3/uL (0.0-0.2); Basophils Percent Auto 0.8 % (0-2); Eosinophils Absolute Auto 0.2 X10*3/uL (0.0-0.4); Eosinophils Percent Auto 2.8 % (0-4); Hematocrit 43.6 % (42.0-52.0); Hemoglobin 14.8 g/dl (14.0-18.0); Imm Gran Abs Auto 0.04 X10*3/uL (0.00-0.03); Imm Gran Pct Auto 0.5 % (0.0-0.4); Lymphocytes Absolute Auto 1.6 X10*3/uL (1.2-4.9); Lymphocytes Percent Auto 19.8 % (20-40); Mean Corpuscular HGB Conc 33.9 g/dl (31.0-36.0); Mean Corpuscular Hemoglobin 27.9 pg (27.0-33.0); Mean Corpuscular Volume 82.3 fL (80.0-98.0); Mean Platelet Volume 8.5 fL (9.4-12.4); Monocytes Absolute Auto 0.7 X10*3/uL (0.1-1.2); Monocytes Percent Auto 9.3 % (2-11); Neutrophils Absolute Auto 5.4 x10*3/uL (2.0-8.3); Neutrophils Percent Auto 66.8 % (45-73); Platelet Count 308 X10*3/uL (160-400); Red Cell Distribution Width 14.3 % (11.0-16.0)
[2023-10-17 10:21] LABS: Alanine Aminotransferase 23 U/L (0-40); Albumin Level 4.2 g/dL (3.5-5.0); Alkaline Phosphatase 69 U/L (39-117); Anion Gap 11 (12-20); Aspartate Amino Transferase 21 U/L (5-37); Bilirubin Total 0.5 mg/dL (0.0-1.0); Blood Urea Nitrogen 31 mg/dL (9-16); Calcium 9.1 mg/dL (8.4-10.2); Carbon Dioxide 27 mmol/L (22-29); Chloride 105 mmol/L (96-108); Cholesterol 136 mg/dL (<200); Estimated Glomerular Filt Rate 54; Glucose Fasting 174 mg/dL (60-99); HDL Cholesterol 42 mg/dL (>40); LDL Cholesterol Calculated 85 mg/dL (<100); Potassium 4.2 mmol/L (3.3-5.1); Sodium 139 mmol/L (135-145); Total Protein 6.6 g/dL (6.5-8.0); Triglycerides 48 mg/dL (<150)
[2023-10-17 10:29] LABS: Appearance Urine Clear; Color Urine Dark Yellow; Glucose Urine UA Negative (Negative); Leukocyte Esterase Urine Negative (Negative); Nitrite Urine Negative (Negative); Urine Blood Negative (Negative); Urine Ketones Trace mg/dL (Negative); Urine Protein Negative (Neg-Trace)
[2023-10-17 10:37] LABS: TSH reflex Free T4 2.84 uIU/mL (0.32-4.0)
== END 2023-10-17 09:22 | disposition home or self-care (01) ==
LOC: HO.LAB 09:21
PROVIDERS: PCP Nurse Practitioner Family; Visit Provider Nurse Practitioner Family
DX: E11.42 Type 2 diabetes mellitus with diabetic polyneuropathy (principal)
CPT/HCPCS: 36415; 80053; 80061; 81003; 84443; 85025

== ENCOUNTER 2023-10-19 08:08 | Outpatient (AMB) | payer MEDICARE, OTHER, SELFPAY ==
--- NOTE | 2023-10-19 08:13 | A.OFFPC_ITS ---
Vital Signs 10/19/23 08:15 Height 6 ft 1 in Weight 197 lb BMI 26.0 BP 118/72 Blood Pressure Location Rt brachial Position Sitting Pulse 68 Pulse Source Pulse Oximeter Pulse Oximetry (%) 98 Oxygen Delivery Method Room Air Intake Visit Reasons: 3 month f/u DM with labs Intake Note: Patient here for diabetes f/u. Allergies No Known Allergies [No Known Allergies*] Allergy (Verified 10/19/23 08:26) Medication List - Last Reconciled 10/19/23 by OVI Lai antiarthritic combination no.2 (glucosamine-chondroitin) mg PO atorvastatin 20 mg PO DAILY blood sugar diagnostic (FreeStyle Lite Strips) As directed three times a day cetirizine (All Day Allergy (cetirizine)) 10 mg PO DAILY PRN dulaglutide 3 mg (0.5 mL) subcut QWEEK 90 days ferrous sulfate 325 mg PO DAILY 90 days hydrochlorothiazide 25 mg PO DAILY lancets (FreeStyle Lancets) As directed three time a day lisinopril 10 mg PO DAILY 90 days metformin 1,000 mg PO BID multivitamin 1 tab PO DAILY omega-3 fatty acids (Fish Oil Concentrate) 1,000 mg PO DAILY omeprazole 20 mg PO DAILY sildenafil 25 mg PO DAILY PRN 14 days Tobacco use date assessed: 10/19/23 Fall risk assessment: No Falls in past year Last assessed Fall Risk: 10/19/23 Dental Screening Dental Screen Date: 10/19/23 Did you have a dental visit in the last 12 months?: Yes Did you have a dental problem in the last 6 months where you did not have access to dental care?: No Was dental information given to patient?: Patient has dentist HPI 3 month f/u DM with labs HPI Details left knee pain: ongoing, ACL repair approx 32 years ago. Pt is pointing to his left lateral knee region, that's where the pain is . Pt is requesting a referral to [facility], will order a XR and refer as requested. diabetes: pt is on a statin and a GEOVANNY. pt knows the s/s of hypoglycemia and how to correct it. 6.4 A1c today. Pt denies any neuropathy, polyuria, polydipsia. Pt reports his eye exam is up to date. [facility] Medical History (Updated 10/19/23 @ 08:50 by OVI Lai) Diabetes CKD (chronic kidney disease) stage 3, GFR 30-59 ml/min GERD (gastroesophageal reflux disease) Barretts esophagus Patellofemoral arthritis of left knee Type 2 diabetes mellitus with diabetic polyneuropathy Subjective memory complaints Enlarged prostate Renal insufficiency Iron deficiency Hyperlipidemia HTN (hypertension) Hyperlipidemia LDL goal <100 Surgical History History of right inguinal hernia repair History of left knee surgery History of shoulder surgery History of tonsillectomy History of nasal surgery Hx of esophagogastroduodenoscopy Hx of colonoscopy History of foot surgery Family History Father Diabetes Mother Lung cancer Son No problems noted. Son No problems noted. Son No problems noted. Son No problems noted. Son No problems noted. Son No problems noted. Daughter No problems noted. Daughter No problems noted. Paternal Grandmother Diabetes Social History Household Members: Spouse Housing: House Alcohol intake: current Alcohol intake frequency: holidays/special occasions only Alcohol type: beer, wine, hard liquor and other Patient Tobacco Use Status: Never used Tobacco e-Cigarette/Vaping Use: Never Used Second Hand Smoke Exposure: No service: Yes Current occupational status: retired Cognitive needs: No Hearing needs: No Vision needs: No Questionnaire Thrive Questionnaire Date Thrive assessed: 12/09/21 AUDIT C Alcohol Use Questionnaire (AUDIT-C) 1. How often do you have a drink containing alcohol?: Monthly or less 2. How many drinks containing alcohol do you have on a typical day when you are drinking?: 1 or 2 3. How often do you have six or more drinks on one occasion?: Never Total Score: 1 Score Reviewed/Action Taken: No PETAR-7 AMB Questionnaire PETAR-7 Date PETAR - 7 assessed: 12/09/21 Source: Developed by Drs. Johnathan Haas, Rosalia Fonseca, Abelardo Smith and colleagues, with an educational ignacio from [employer]. Physical exam (Primary Care) Vital Signs: Last Vital Signs Pulse 68 10/19/23 08:15 BP 118/72 10/19/23 08:15 Pulse Ox 98 10/19/23 08:15 Oxygen Delivery Method Room Air 10/19/23 08:15 BMI result Body Mass Index 26.0 Tobacco/Smoking Status: Tobacco use Status Tobacco use date assessed 10/19/23 10/19/23 08:19 Patient Tobacco Use Status Never used Tobacco 10/19/23 08:14 e-Cigarette/Vaping Use Never Used 10/19/23 08:14 Thrive Assessment: Date of Thrive Assessment Date Thrive assessed 12/09/21 10/19/23 08:14 Const General: cooperative Resp Effort & Inspection: normal respiratory effort Auscultation: clear to auscultation bilaterally Cardio Rate: regular rate Rhythm: regular rhythm Heart sounds: S1 normal heart sound present and S2 normal heart sound present Extrem Other: + monofilament, feet intact bilat. Left lower extremity: knee Details: normal to inspection and crepitus (minimal); Sarah's Test not performed; no edema Psych Appearance: grossly normal Mental Status: mental status grossly normal Speech and movement: Normal speech and movement present Affect: normal affect Attitude: cooperative Thought process: Normal thought process present Thought content: Normal thought content present Insight: Good insight present (Psych) Judgement: Good judgement present (Psych) Results AMB Hemoglobin A1c AMB Hemoglobin A1c 6.4 % Last Edit by JOSÉ MANUEL Garcia on 10/19/23 08 :38 Results Reviewed Results Reviewed: Laboratory Last Values Hgb A1c (Clinic) 6.4 % (4.0-6.0) H 10/19/23 08:37 Assessment and Plan Assessment & Plan (1) Left knee pain: Code(s): M25.562 - Pain in left knee (2) Diabetes: Code(s): E11.9 - Type 2 diabetes mellitus without complications Orders: Orders XR knee LT 3V Today M25.562 - Pain in left knee AMB Hemoglobin A1c Today Z13.9 - Encounter for screening, unspecified Referrals Orthopedics Referral M25.562 - Pain in left knee Coding Level of Care Code Est Pt Level 3 (32487) Diagnoses Left knee pain M25.562 Diabetes E11.9
[2023-10-19 08:15] VITALS: BP 118/72; PULSE 68; O2SAT 98; BMI 26.0
== END 2023-10-19 08:49 | disposition home or self-care (01) ==
PROVIDERS: PCP Nurse Practitioner Family; Visit Provider Nurse Practitioner Family
DX: M25.562 Pain in left knee (principal); E11.9 Type 2 diabetes mellitus without complications
CPT/HCPCS: 83036; 99213

== ENCOUNTER 2023-10-19 09:02 | Outpatient (REF) | payer MEDICARE, OTHER, SELFPAY ==
--- NOTE | ~2023-10-19 | XR_ITS ---
EXAMINATION: XR KNEE, LEFT CLINICAL INFORMATION: Pain. COMPARISON: Radiographs dated 12/05/2020. TECHNIQUE: Frontal, tunnel and lateral views of the left knee are submitted. FINDINGS: Bony alignment and mineralization are normal. The lateral, medial and patellofemoral joint space compartments are well-maintained. There is slight peripheral osteophyte formation of the medial joint space compartment. There are postoperative changes consistent with a prior anterior cruciate ligament repair. No fracture, dislocation or joint effusion is seen. There is no foreign body. XR/XR knee LT 3V IMPRESSION: 1. There are postoperative changes consistent with prior anterior cruciate ligament repair. 2. There is mild osteoarthritic change of the medial joint space compartment of the left knee. 3. No left knee fracture, dislocation or joint effusion is seen.
== END 2023-10-19 09:03 | disposition home or self-care (01) ==
LOC: HO.HMGCX 09:02
PROVIDERS: PCP Nurse Practitioner Family; Visit Provider Nurse Practitioner Family
DX: M25.562 Pain in left knee (principal)
CPT/HCPCS: 73562

== ENCOUNTER 2023-11-04 16:39 | Outpatient (REF) | payer MEDICARE, OTHER, SELFPAY | END 2023-11-04 16:40 | disposition home or self-care (01) | LOC: HO.HOSX 16:39 | PROVIDERS: Visit Provider Physician Assistant | DX: Z13.89 Encounter for screening for other disorder (principal) ==

== ENCOUNTER 2023-11-06 09:57 | Outpatient (AMB) | payer MEDICARE, OTHER, SELFPAY ==
--- NOTE | 2023-11-06 10:03 | A.OFFVIS_ITS ---
Intake Visit Reasons: New prob/ left knee pain Intake Note: Michael is a 68 year old male who presnets today for a new problem visit with complaints of left knee pain. Patient reports that he has ongoing knee pain for about 6 months now, denies injury.. HX of ACL repair about 30+ years ago. His pain is felt on the lateral aspect of the knee. He takes ibuprofen for the pain, which does give him moderate relief. He has a corn at the bottom of his right foot and is thinking that this may be impacting his gait, he has taken the corn down himself but it is reoccurring. Allergies No Known Allergies [No Known Allergies*] Allergy (Verified 11/06/23 10:09) HPI HPI New prob/ left knee pain : Details: 68--year-old right hand dominant male who presents in the office today for an evaluation of left knee pain. Patient was referred to the office by his PCP for further evaluation. X-rays were obtained. While in the office today the patient reports he has ongoing pain for about 6 mo nths. He denies any known injury. He claims his pain is in the lateral aspect of the left knee. Confirms the use of Ibuprofen for pain, which gives him moderate relief. Patient reports having a corn at the bottom of his right foot, and he feels this may be affecting his gait. He states he has tried to reduce the size of the corn himself but states it keeps reoccurring. Patient has a surgical history of an ACL repair approximately 32 years ago. Patient has a significant medical history of diabetes mellitus. [facility] Medical History (Updated 11/06/23 @ 10:37 by Keila Mcdonough) Diabetes CKD (chronic kidney disease) stage 3, GFR 30-59 ml/min GERD (gastroesophageal reflux disease) Barretts esophagus Patellofemoral arthritis of left knee Type 2 diabetes mellitus with diabetic polyneuropathy Subjective memory complaints Enlarged prostate Renal insufficiency Iron deficiency Hyperlipidemia HTN (hypertension) Hyperlipidemia LDL goal <100 Surgical History History of right inguinal hernia repair History of left knee surgery History of shoulder surgery History of tonsillectomy History of nasal surgery Hx of esophagogastroduodenoscopy Hx of colonoscopy History of foot surgery Family History Father Diabetes Mother Lung cancer Son No problems noted. Son No problems noted. Son No problems noted. Son No problems noted. Son No problems noted. Son No problems noted. Daughter No problems noted. Daughter No problems noted. Paternal Grandmother Diabetes Social History Household Members: Spouse Housing: House Alcohol intake: current Alcohol intake frequency: holidays/special occasions only Alcohol type: beer, wine, hard liquor and other Patient Tobacco Use Status: Never used Tobacco e-Cigarette/Vaping Use: Never Used Second Hand Smoke Exposure: No service: Yes Current occupational status: retired Cognitive needs: No Hearing needs: No Vision needs: No Review of Systems Const All systems reviewed & are unremarkable except as noted in HPI and below Physical Exam Const General: cooperative, healthy appearing and no acute distress Resp Effort & Inspection: normal respiratory effort and able to speak in complete sentences Cardio Rate: regular rate Peripheral pulses: Peripheral pulses 2+ throughout GI Palpation (GI): Soft to palpation Skin Lesions: no lesions Rashes: no rashes Extrem Other: Left knee: Normal to inspection. No ecchymosis, erythema, or joint effusion. No tenderness to palpation along the medial or lateral joint lines. Full knee extension and flexion. Crepitus felt with ROM. Negative Eryn's. NVI. Office Procedures Joint Injection/Drain Joint Injection/Drain Primary Site: left knee Prep: site was prepped using aseptic technique, ethochloride spray was applied and injection warnings given Injected: 40 mg of, DepoMedrol, with 8 mL of (2% plain lido ) and in the joint Approach Used: anterolateral Procedure: The patient tolerated the procedure well, but had some pain with the injection and there was some relief with the local anesthesia Coding 53836 - Large joint Procedure code (CPT) selection complete Assessment & Plan Assessment & Plan (1) Arthritis of left knee: Code(s): M17.12 - Unilateral primary osteoarthritis, left knee Category: Medical (2) Diabetes: Code(s): E11.9 - Type 2 diabetes mellitus without complications Category: Medical Plan Mr. Martinez is a 68--year-old right hand dominant male who presents in the office today for an evaluation of left knee pain. Patient was referred to the office by his PCP for further evaluation. X-rays were obtained. While in the office today the patient reports he has ongoing pain for about 6 months. He denies any known injury. He claims his pain is in the lateral aspect of the left knee. Confirms the use of Ibuprofen for pain, which gives him moderate relief. Patient reports having a corn at the bottom of his right foot, and he feels this may be affecting his gait. He states he has tried to reduce the size of the corn himself but states it keeps reoccurring. Patient has a surgical history of an ACL repair approximately 32 years ago. Patient has a significant medical history of diabetes mellitus. The patient was offered a cortisone injection in the left knee with 40 mg of DepoMedrol. The patient was explained the risk, benefits, and alternatives to receiving this injection. After receiving consent for the injection, the patient had the procedure done while in the office today. The patient tolerated the procedure well with no complications. Due to the patient?s history of diabetes, they were instructed to monitor his blood glucose level. The patient was informed that they could see a rise in their numbers and if the numbers became too high, they were instructed to call their PCP. The patient was also informed that they could have facial flushing as a side effect of the injection, but this will pass. Follow up will be PRN, or sooner if needed. X-rays of the left knee which were obtained while in the office today and were reviewed by me, Delfina Wheeler PA-C, revealed arthritis and retained hardware from prior ACL reconstruction. X-rays of the left knee, obtained on 10/19/2023, revealed: 1. There are postoperative changes consistent with prior anterior cruciate ligament repair. 2. There is mild osteoarthritic change of the medial joint space compartment of the left knee. 3. No left knee fracture, dislocation or joint effusion is seen. Orders: Orders XR knee standing BI Today M25.569 - Pain in unspecified knee Patient Instructions: Scribed by Keila Mcdonough medical reception, for Delfina Wheeler PA-C on 11/06/2023 at 9:59 am, EST.
== END 2023-11-06 10:46 | disposition home or self-care (01) ==
PROVIDERS: PCP Nurse Practitioner Family; Visit Provider Physician Assistant
DX: M17.12 Unilateral primary osteoarthritis, left knee (principal); E11.9 Type 2 diabetes mellitus without complications
CPT/HCPCS: 20610; 99214

== ENCOUNTER 2023-11-06 09:57 | Outpatient (REF) | payer MEDICARE, OTHER, SELFPAY ==
--- NOTE | ~2023-11-06 | XR_ITS ---
EXAMINATION: XR KNEE AP STANDING CLINICAL INFORMATION: Pain COMPARISON: Left knee radiograph from 10/19/2023 TECHNIQUE: AP bilateral standing view of the knees was obtained. FINDINGS: Postsurgical changes status post left anterior cruciate ligament. Orthopedic hardware is grossly intact. No acute visible fracture or dislocation. Mild narrowing of the bilateral medial femorotibial compartments. Joint space alignment otherwise maintained. Soft tissues are unremarkable. XR/XR knee standing BI IMPRESSION: 1. Postsurgical changes status post left anterior cruciate ligament. Orthopedic hardware is grossly intact. 2. No acute visible fracture or dislocation. 3. Mild narrowing of the bilateral medial femorotibial compartments.
== END 2023-11-06 09:58 | disposition home or self-care (01) ==
LOC: HO.HOSX 09:57
PROVIDERS: PCP Nurse Practitioner Family; Visit Provider Physician Assistant
DX: M25.562 Pain in left knee (principal); L84 Corns and callosities
CPT/HCPCS: 20610; 73565; 99212; J1010

== ENCOUNTER 2023-11-09 09:13 | Outpatient (AMB) | payer MEDICARE, OTHER, SELFPAY ==
--- NOTE | 2023-11-09 09:26 | MHC.OFFVIS ---
Vital Signs 11/09/23 09:33 Height 6 ft 1 in Weight 197 lb BMI 26.0 Handedness Right Intake Visit Reasons: New Prob - Right Elbow Pain Intake Note: Michael is a 66 year old right hand dominant male who presents today for a follow up of his right elbow pain. Patient expresses he is having consistent pain which exacerbates. The medial aspect of his elbow is tender to palpitation. He is unable to lift and has intermittent popping in his right elbow with activities. He is interested in possibly getting an injection today. Allergies No Known Allergies [No Known Allergies*] Allergy (Verified 11/09/23 09:32) HPI HPI New Prob - Right Elbow Pain: Details: Michael is a 66 year old right hand dominant male who presents today for a follow up of his right elbow pain. Patient expresses he is having consistent pain which exacerbates. The medial aspect of his elbow is tender to palpitation. He is unable to lift and has intermittent crunching in his right elbow with activities. He is interested in possibly getting an injection today. [facility] Medical History Diabetes CKD (chronic kidney disease) stage 3, GFR 30-59 ml/min GERD (gastroesophageal reflux disease) Barretts esophagus Patellofemoral arthritis of left knee Type 2 diabetes mellitus with diabetic polyneuropathy Subjective memory complaints Enlarged prostate Renal insufficiency Iron deficiency Hyperlipidemia HTN (hypertension) Hyperlipidemia LDL goal <100 Surgical History History of right inguinal hernia repair History of left knee surgery History of shoulder surgery History of tonsillectomy History of nasal surgery Hx of esophagogastroduodenoscopy Hx of colonoscopy History of foot surgery Family History Father Diabetes Mother Lung cancer Son No problems noted. Son No problems noted. Son No problems noted. Son No problems noted. Son No problems noted. Son No problems noted. Daughter No problems noted. Daughter No problems noted. Paternal Grandmother Diabetes Social History Household Members: Spouse Housing: House Alcohol intake: current Alcohol intake frequency: holidays/special occasions only Alcohol type: beer, wine, hard liquor and other Patient Tobacco Use Status: Never used Tobacco e-Cigarette/Vaping Use: Never Used Second Hand Smoke Exposure: No service: Yes Current occupational status: retired Cognitive needs: No Hearing needs: No Vision needs: No Physical Exam Vital Signs: BMI result Body Mass Index 26.0 Extrem Other: right elbow iwth + tinel's at the cubital tunnel with pain otherwise benign exam Assessment & Plan Assessment & Plan (1) Neuritis of right ulnar nerve: Code(s): G56.21 - Lesion of ulnar nerve, right upper limb Category: Medical Plan: Ulnar neuritis. EMG/NCV Orders: Orders NE electromyogram (EMG) Today G56.21 - Lesion of ulnar nerve, right upper limb NE nerve conduction velocity Today R20.0 - Anesthesia of skin
[2023-11-09 09:33] VITALS: BMI 26.0
== END 2023-11-09 09:53 | disposition home or self-care (01) ==
PROVIDERS: PCP Nurse Practitioner Family; Visit Provider Orthopaedic Surgery
DX: G56.21 Lesion of ulnar nerve, right upper limb (principal)
CPT/HCPCS: 99213

== ENCOUNTER → 2023-11-09 09:13 | Outpatient (BNVA) | payer MEDICARE, OTHER, SELFPAY | PROVIDERS: PCP Nurse Practitioner Family; Visit Provider Orthopaedic Surgery | DX: G56.21 Lesion of ulnar nerve, right upper limb (principal) | CPT/HCPCS: 99212 ==

== ENCOUNTER 2023-11-27 09:10 | Outpatient (REF) | payer MEDICARE, OTHER, SELFPAY ==
--- NOTE | ~2023-11-27 | US_ITS ---
EXAMINATION: US RETROPERITONEAL COMPLETE (RENAL) CLINICAL INFORMATION: Other difficulties with micturition. COMPARISON: Renal ultrasound with bladder 06/16/2018. CT abdomen and pelvis 10/03/2015. TECHNIQUE: Real-time imaging of the kidneys and bladder. FINDINGS: RIGHT KIDNEY: 11.2 x 5.0 x 4.8 cm (SAG x AP x TRV). The kidney is normal in size, contour, and echogenicity. Renal cortical thickness is normal. 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 LEFT KIDNEY: 10.4 x 5.5 x 4.9 cm (SAG x AP x TRV). The kidney is normal in size, contour, and echogenicity. Renal cortical thickness is normal. No calculi or focal parenchymal lesions. No hydronephrosis. BLADDER: Well distended and normal. Bilateral ureteral jets are demonstrated. Prevoid bladder volume is 127 mL. Postvoid bladder volume is 43.8 mL. Prostate volume 19.7 mL. US/US retroperitoneal comp IMPRESSION: 1. No renal calculi or hydronephrosis of either kidney. 2. Prominent post void bladder residual of 45 mL.
--- NOTE | 2023-11-27 09:12 | EMG_ITS ---
Chief complaint: Right medial elbow pain, numbness on right 4th and 5th digits Reason for referral: Evaluate for ulnar neuropathy Referred by: Dr. Patel Procedure done: Right upper extremity NCS/EMG Precautions and/or limitations: None The limb temperature was monitored continuously and remained between 32-36 degrees C during the performance of the NCS. Ulnar motor NCS was performed with moderate elbow flexion between 70-90 degrees, with across-elbow distance of 10 cm. Nerve Conduction Studies Anti Sensory Summary Table ?Stim Site NR Onset (ms) Norm Onset (ms) Peak (ms) Norm Peak (ms) O-P Amp (?V) Norm O-P Amp Site1 Site2 Delta-0 (ms) Dist (cm) Chapo (m/s) Norm Chapo (m/s) Right Median Anti Sensory (2nd Digit) Wrist ? 3.6 4.7 <3.6 20.4 >10 Wrist 2nd Digit 3.6 14.0 39 Right Radial Anti Sensory (Thumb) Forearm ? 1.8 2.5 <3.1 18.6 Forearm Thumb 1.8 0.0 Right Ulnar Anti Sensory (5th Digit) Wrist ? 2.7 3.6 <3.7 17.3 >15.0 Wrist 5th Digit 2.7 14.0 52 Motor Summary Table ?Stim Site NR Onset (ms) Norm Onset (ms) O-P Amp (mV) Norm O-P Amp iAmp (mV) Amp (1st) (%) Site1 Site2 Delta-0 (ms) Dist (cm) Chapo (m/s) Norm Chapo (m/s) Right Median Motor (Abd Poll Brev) Wrist ? 4.5 <3.9 7.9 >4.5 10.0 100.0 Elbow Wrist 4.7 24.0 51 >45 Elbow ? 9.2 7.9 10.1 100.0 Right Ulnar Motor (Abd Dig Minimi) Wrist ? 3.0 <3.0 7.8 >5 10.6 100.0 B Elbow Wrist 4.7 23.0 49 >45 B Elbow ? 7.7 7.3 10.2 93.6 A Elbow B Elbow 1.8 10.0 56 >45 A Elbow ? 9.5 7.2 10.5 92.3 EMG ?Side Muscle Nerve Root Ins Act Fibs Psw Amp Dur Poly Recrt Int Pat Comment Right 1stDorInt Ulnar C8-T1 Nml Nml Nml Nml Nml 0 Nml Complete Right FlexCarRad Median C6-7 Nml Nml Nml Nml Nml 0 Nml Complete Right Biceps Musculocut C5-6 Nml Nml Nml Nml Nml 0 Nml Complete Right Triceps Radial C6-7-8 Nml Nml Nml Nml Nml 0 Nml Complete Right Deltoid Axillary C5-6 Nml Nml Nml Nml Nml 0 Nml Complete Right FlexCarpiUln Ulnar C8,T1 Nml Nml Nml Nml Nml 0 Nml Complete FINDINGS: Right median motor nerve showed prolonged distal latency, normal amplitude and normal conduction velocity. Right median sensory nerve showed prolonged peak latency. All other nerves tested were within normal. Concentric needle EMG was performed in selected muscles of the right upper extremity. Study did not reveal signs of electric abnormalities as shown in the table below. IMPRESSION: 1. This is an abnormal study. 2. There is electrodiagnostic evidence for right moderate-severe median neuropathy at the wrist, consistent with carpal tunnel syndrome. 3. There is no electrodiagnostic evidence for ulnar neuropathy, brachial plexopathy, or cervical radiculopathy. CLINICAL COMMENT: Although symptoms suggestive of ulnar neuropathy, ulnar nerve findings are within normal. Incidental finding of right Carpal Tunnel Syndrome although he denies any Carpal Tunnel Syndrome symptoms. Thank you for your kind referral. Daniella Parker MD, MARK Board Certified, [place] Board [employer] and Rehabilitation (ABPMR) Board Certified, [place] Board of Electrodiagnostic Medicine (ABEM) CODIN [id number] MTDD
== END 2023-11-27 09:11 | disposition home or self-care (01) ==
LOC: HO.NEURO 09:10
PROVIDERS: PCP Nurse Practitioner Family; Visit Provider Orthopaedic Surgery
DX: R20.0 Anesthesia of skin (principal); G56.21 Lesion of ulnar nerve, right upper limb; R39.198 Other difficulties with micturition
CPT/HCPCS: 76770; 95886; 95909

== ENCOUNTER → 2023-11-27 09:12 | Outpatient (BNV) | payer MEDICARE, OTHER, SELFPAY | PROVIDERS: PCP Nurse Practitioner Family; Visit Provider Physical Medicine & Rehabilitation | DX: G56.01 Carpal tunnel syndrome, right upper limb (principal); G56.11 Other lesions of median nerve, right upper limb | CPT/HCPCS: 95886; 95909 ==

== ENCOUNTER 2023-12-31 13:20 | Outpatient (AMB) | payer MEDICARE, OTHER, SELFPAY ==
--- NOTE | 2023-12-31 13:22 | MHC.OFFVIS ---
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 He also complains that he notices a bending of the penis with erections. I will prescribe tamsulosin and have discussed trial of vitamin-E and pentoxifylline. [facility] Medical History Diabetes CKD (chronic kidney disease) stage 3, GFR 30-59 ml/min GERD (gastroesophageal reflux disease) Barretts esophagus Patellofemoral arthritis of left knee Type 2 diabetes mellitus with diabetic polyneuropathy Subjective memory complaints Enlarged prostate Renal insufficiency Iron deficiency Hyperlipidemia HTN (hypertension) Hyperlipidemia LDL goal <100 Surgical History History of right inguinal hernia repair History of left knee surgery History of shoulder surgery History of tonsillectomy History of nasal surgery Hx of esophagogastroduodenoscopy Hx of colonoscopy History of foot surgery Family History Father Diabetes Mother Lung cancer Son No problems noted. Son No problems noted. Son No problems noted. Son No problems noted. Son No problems noted. Son No problems noted. Daughter No problems noted. Daughter No problems noted. Paternal Grandmother Diabetes Social History Household Members: Spouse Housing: House Alcohol intake: current Alcohol intake frequency: holidays/special occasions only Alcohol type: beer, wine, hard liquor and other Patient Tobacco Use Status: Never used Tobacco e-Cigarette/Vaping Use: Never Used Second Hand Smoke Exposure: No service: Yes Current occupational status: retired Cognitive needs: No Hearing needs: No Vision needs: No Review of Systems Const All systems reviewed & are unremarkable except as noted in HPI and below Reports no additional complaints Eyes Reports no additional complaints ENT Reports no additional complaints Card Reports no additional complaints Resp Reports no additional complaints GI Reports no additional complaints Reports as per HPI Musc Reports no additional complaints Skin/Breast Reports system reviewed and no additional complaints, except as documented Neuro Reports no additional complaints Psych Reports no additional complaints Endo Reports no additional complaints Randy/Lymph Reports no additional complaints Aller/Immun Reports no additional complaints Office Procedures Post Void Residual Post Residual Void Post Void Residual (PVR): 29 [id number] Void Residual by ultrasound Results AMB Urinalysis, Automated UA Leukoctes 0 Rigoberto/uL Last Edit by Polo Lombardi Colt on 12/31/23 13:58 UA Nitrite Negative Last Edit by Polo Lombardi REPLACED BY [facility] on 12/31/23 13:58 UA Urobilinogen 0.2 mg/dL Last Edit by Polo Lombardi REPLACED BY [facility] on 12/31/23 13:58 UA Protein 15 mg/dL Last Edit by Polo Lombardi REPLACED BY [facility] on 12/31/23 13:58 UA pH 6.0 Last Edit by Polo Lombardi REPLACED BY [facility] on 12/31/23 13:58 UA Blood 0 Mati/uL Last Edit by Polo Lombardi REPLACED BY [facility] on 12/31/23 13:58 UA Specific [place] 1.025 Last Edit by Polo Lombardi REPLACED BY [facility] on 12/31/23 13:58 UA Ketone Negative Last Edit by Polo Lombardi REPLACED BY [facility] on 12/31/23 13:58 UA Bilirubin 0 mg/dL Last Edit by Polo Lombardi REPLACED BY [facility] on 12/31/23 13:58 UA Glucose 0 mg/dL Last Edit by Polo Lombardi REPLACED BY [facility] on 12/31/23 13:58 Results Reviewed Results Reviewed: Laboratory Last Values Urine pH (Auto) 6.0 12/31/23 13:23 Specific [place] (Auto) 1.025 12/31/23 13:23 Urine Protein (Auto) 15 mg/dL 12/31/23 13:23 Glucose (UA)(Auto) 0 mg/dL 12/31/23 13:23 Urine Ketones (Auto) Negative 12/31/23 13:23 Urine Blood (Auto) 0 Mati/uL 12/31/23 13:23 Urine Nitrite (Auto) Negative 12/31/23 13:23 Urine Bilirubin (Auto) 0 mg/dL 12/31/23 13:23 Urine Urobilinogen (Auto) 0.2 mg/dL 12/31/23 13:23 Leukocyte Esterase (Auto) 0 Rigoberto/uL 12/31/23 13:23 Date of Service: 11/27/23 EXAMINATION: US RETROPERITONEAL COMPLETE (RENAL) CLINICAL INFORMATION: Other difficulties with micturition. COMPARISON: Renal ultrasound with bladder 06/16/2018. CT abdomen and pelvis 10/03/2015. TECHNIQUE: Real-time imaging of the kidneys and bladder. FINDINGS: RIGHT KIDNEY: 11.2 x 5.0 x 4.8 cm (SAG x AP x TRV). The kidney is normal in size, contour, and echogenicity. Renal cortical thickness is normal. 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 LEFT KIDNEY: 10.4 x 5.5 x 4.9 cm (SAG x AP x TRV). The kidney is normal in size, contour, and echogenicity. Renal cortical thickness is normal. No calculi or focal parenchymal lesions. No hydronephrosis. BLADDER: Well distended and normal. Bilateral ureteral jets are demonstrated. Prevoid bladder volume is 127 mL. Postvoid bladder volume is 43.8 mL. Prostate volume 19.7 mL. IMPRESSION: 1. No renal calculi or hydronephrosis of either kidney. 2. Prominent post void bladder residual of 45 mL. Assessment & Plan Assessment & Plan (1) Difficulty urinating: Code(s): R39.198 - Other difficulties with micturition Category: Medical (2) BPH (benign prostatic hyperplasia): Code(s): N40.0 - Benign prostatic hyperplasia without lower urinary tract symptoms Category: Medical (3) Peyronie's disease: Code(s): N48.6 - Induration penis plastica Category: Medical Plan Tamsulosin, vitamin-E daily, pentoxifylline bid Orders: Orders AMB Urinalysis Automated 12/31/23 Z13.9 - Encounter for screening, unspecified AMB Post Void Residual by ultrasound 12/31/23 N39.8 - Other specified disorders of urinary system Medications: New vitamin E (dl, acetate) 450 mg PO DAILY 90 caps 3RF 90 days pentoxifylline ER 400 mg PO BID 180 tabs 3RF 90 days Patient Instructions: The patient had an opportunity to ask questions regarding treatment plan. The patient expressed understanding and agreement with the above treatment plan. The patient is aware they should contact our office by phone for worsening of their current condition or the appearance of new symptoms. Compliance is encouraged with any medications and followup testing that is ordered. It is a privilege to be allowed the opportunity to participate in the urologic care of your patient. If you have any questions or concerns regarding treatment for the above conditions please do not hesitate to contact me. The office telephone contact is [phone]. This note is constructed in part using voice recognition software. While every effort has been made to ensure accuracy betting agency counter clerk errors may have been included. Yours sincerely, Christy Morris MD Coding Level of Care Code New Pt Level 4 (28680) Diagnoses Difficulty urinating R39.198 BPH (benign prostatic hyperplasia) N40.0 Peyronie's disease N48.6 CPT Codes Post Residual Void - PVR CPT Code: 07066-Oasi Void Residual by ultrasound ([id number])
== END 2023-12-31 14:20 | disposition home or self-care (01) ==
PROVIDERS: PCP Nurse Practitioner Family; Visit Provider Urology
DX: R39.198 Other difficulties with micturition (principal); N40.0 Benign prostatic hyperplasia without lower urinary tract symptoms; N48.6 Induration penis plastica
CPT/HCPCS: 99204

== ENCOUNTER → 2023-12-31 13:20 | Outpatient (BNVA) | payer MEDICARE, OTHER, SELFPAY | PROVIDERS: PCP Nurse Practitioner Family; Visit Provider Urology | DX: R39.198 Other difficulties with micturition (principal); N48.6 Induration penis plastica; N40.0 Benign prostatic hyperplasia without lower urinary tract symptoms | CPT/HCPCS: 51798; 81003; 99202 ==

== ENCOUNTER 2024-03-23 13:41 | Outpatient (AMB) | payer MEDICARE, OTHER, SELFPAY ==
[2024-03-23 13:42] VITALS: BP 138/78; PULSE 111; O2SAT 98; BMI 26.5
--- NOTE | 2024-03-23 13:42 | A.OFFPC_ITS ---
Vital Signs 03/23/24 13:42 03/23/24 16:32 Height 6 ft 1 in Weight 201 lb 2 oz BMI 26.5 BP 138/78 Blood Pressure Location Lt brachial Position Sitting Pulse 111 H 80 Pulse Source Pulse Oximeter Pulse Oximetry (%) 98 Oxygen Delivery Method Room Air Intake Visit Reasons: DM f/u- A1c Allergies No Known Allergies [No Known Allergies*] Allergy (Verified 03/23/24 16:34) Medication List - Last Reconciled 03/23/24 by AMANDA Lai- antiarthritic combination no.2 (glucosamine-chondroitin) mg PO atorvastatin 20 mg PO DAILY blood sugar diagnostic (FreeStyle Lite Strips) As directed three times a day cetirizine (All Day Allergy (cetirizine)) 10 mg PO DAILY PRN dulaglutide 3 mg (0.5 mL) subcut QWEEK 90 days dulaglutide (Trulicity) 3 mg subcut QWEEK ferrous sulfate 325 mg PO DAILY 90 days hydrochlorothiazide 25 mg PO DAILY lancets (FreeStyle Lancets) As directed three time a day lisinopril 10 mg PO DAILY 90 days metformin 1,000 mg PO BID multivitamin 1 tab PO DAILY omega-3 fatty acids (Fish Oil Concentrate) 1,000 mg PO DAILY omeprazole 20 mg PO DAILY pentoxifylline ER 400 mg PO BID 90 days sildenafil 50 mg PO DAILY PRN tamsulosin 0.4 mg PO BEDTIME vitamin E (dl, acetate) 450 mg PO DAILY 90 days Tobacco use date assessed: 03/23/24 Fall risk assessment: No Falls in past year Last assessed Fall Risk: 03/23/24 Dental Screening Dental Screen Date: 03/23/24 Did you have a dental visit in the last 12 months?: Yes Did you have a dental problem in the last 6 months where you did not have access to dental care?: No Was dental information given to patient?: Patient has dentist HPI DM f/u- A1c HPI Details Pt is a diabetic, on an GEOVANNY and a statin. A1C in office today is 7.0. Due for microalbumin, will order. Denies polyuria, polydipsia, does report neuropathy. Pt denies any signs and symptoms of hypoglycemia and does know how to correct it. Pt reports that his diet has been poor and he has been eating more sweets. [facility] Medical History Diabetes CKD (chronic kidney disease) stage 3, GFR 30-59 ml/min GERD (gastroesophageal reflux disease) Barretts esophagus Patellofemoral arthritis of left knee Type 2 diabetes mellitus with diabetic polyneuropathy Subjective memory complaints Enlarged prostate Renal insufficiency Iron deficiency Hyperlipidemia HTN (hypertension) Hyperlipidemia LDL goal <100 Surgical History History of right inguinal hernia repair History of left knee surgery History of shoulder surgery History of tonsillectomy History of nasal surgery Hx of esophagogastroduodenoscopy Hx of colonoscopy History of foot surgery Family History Father Diabetes Mother Lung cancer Son No problems noted. Son No problems noted. Son No problems noted. Son No problems noted. Son No problems noted. Son No problems noted. Daughter No problems noted. Daughter No problems noted. Paternal Grandmother Diabetes Social History Household Members: Spouse Housing: House Alcohol intake: current Alcohol intake frequency: holidays/special occasions only Alcohol type: beer, wine, hard liquor and other Patient Tobacco Use Status: Never used Tobacco e-Cigarette/Vaping Use: Never Used Second Hand Smoke Exposure: No service: Yes Current occupational status: retired Cognitive needs: No Hearing needs: No Vision needs: No Questionnaire Thrive Questionnaire Date Thrive assessed: 03/23/24 I am a: Patient What is your living situation today?: I have a steady place to live Within the past 12 months, did the food you bought not last and you didn't have the money to get more?: Never true Within the past 12 months, did you worry whether your food would run out before you got money to buy more?: Never true Do you have trouble paying for medicines?: No Do you have trouble getting transportation to medical appointments?: No Do you have trouble paying your heating and electricity bill?: No Do you have trouble taking care of your child, family member or friend?: No Do you have trouble with day-to-day activities such as bathing, preparing meals, shopping, managing finances, etc.?: No Are you currently unemployed and looking for a job?: No Are you interested in more education?: No Please select the resources that you would like help with: None Currently or been in a relationship where the following occur: No concerns reported THRIVE Score: 0 AUDIT C Alcohol Use Questionnaire (AUDIT-C) 1. How often do you have a drink containing alcohol?: Monthly or less 2. How many drinks containing alcohol do you have on a typical day when you are drinking?: 3 or 4 3. How often do you have six or more drinks on one occasion?: Never Total Score: 2 Score Reviewed/Action Taken: Yes PETAR-7 AMB Questionnaire PETAR-7 Date PETAR - 7 assessed: 03/23/24 Feeling nervous, anxious, or on edge: 0 = Not at all Not being able to stop or control worryin = Not at all Worrying too much about different things: 0 = Not at all Trouble relaxin = Not at all Being so restless that it is hard to sit still: 0 = Not at all Becoming easily annoyed or irritable: 0 = Not at all Feeling afraid as if something awful might happen: 0 = Not at all Total PETAR-7 score (0-4 normal; 5-9 mild; 10-14 moderate; 15-21 severe): 0 Source: Developed by Drs. Johnathan Haas, Rosalia Fonseca, Abelardo Smith and colleagues, with an educational ignacio from [employer]. PETAR-7 Assessment Billing PETAR-7 Assessment Tool: PETAR-7 Assessment 85572 Review of Systems Const Reports as per HPI Physical exam (Primary Care) Vital Signs: Last Vital Signs Pulse 80 03/23/24 16:32 BP 138/78 03/23/24 13:42 Pulse Ox 98 03/23/24 13:42 Oxygen Delivery Method Room Air 03/23/24 13:42 BMI result Body Mass Index 26.5 Tobacco/Smoking Status: Tobacco use Status Tobacco use date assessed 03/23/24 03/23/24 13:50 Patient Tobacco Use Status Never used Tobacco 03/23/24 13:50 e-Cigarette/Vaping Use Never Used 03/23/24 13:50 Thrive Assessment: Date of Thrive Assessment Date Thrive assessed 03/23/24 03/23/24 13:50 Currently or been in a relationship where the following occur: No concerns reported Const General: cooperative Orientation/consciousness: patient oriented x3 Resp Effort & Inspection: normal respiratory effort Auscultation: clear to auscultation bilaterally Cardio Rate: regular rate Rhythm: regular rhythm Heart sounds: S1 normal heart sound present and S2 normal heart sound present Neuro General: patient oriented x3 Extrem Other: bilat feet: + sensation with use of monofilament, feet intact, right big toenail ecchymotic Psych Appearance: grossly normal Mental Status: mental status grossly normal Speech and movement: Normal speech and movement present Affect: normal affect Attitude: cooperative Thought process: Normal thought process present Thought content: Normal thought content present Insight: Good insight present (Psych) Judgement: Good judgement present (Psych) Results AMB Hemoglobin A1c AMB Hemoglobin A1c 7.0 % Last Edit by Patrick Fox CMA on 03/23/24 14: 14 Immunizations pneumoc 20-jackie conj-dip cr(PF) 0.5 mL IM syringe Performing Provider: OVI Lai Performing Location: [facility] Administered by: Patrick Fox CMA on 03/23/24 16:33 Dose Route Admin Location Dispensed Lot Number Expiration Date NDC [employer] 0.5 mL IM Right Deltoid 0.5 mL [id number] 01/06/25 5048-2679-15 [employer] VIS Given Date VIS Provided VIS Publication Date 03/23/24 Single Vaccine 21 Eligibility Eligibility Date Funding Source Not [facility] Eligible 03/23/24 Private Results Reviewed Results Reviewed: Laboratory Last Values Hgb A1c (Clinic) 7.0 % (4.0-6.0) H 03/23/24 14:14 Assessment and Plan Assessment & Plan (1) Diabetes: Code(s): E11.9 - Type 2 diabetes mellitus without complications Plan: Labs ordered (2) Screening PSA (prostate specific antigen): Code(s): Z12.5 - Encounter for screening for malignant neoplasm of prostate Plan: PSA ordered (3) Type 2 diabetes mellitus with diabetic polyneuropathy: Code(s): E11.42 - Type 2 diabetes mellitus with diabetic polyneuropathy Plan: Labs ordered, pt will work on his diet Plan The patient agreed to the use of a certified ophthalmic medical technician for this encounter. Scribed for OVI Riggins by Miladys Ramos, certified ophthalmic medical technician, on 03/23/2024 at 14:00 EST. Orders: Orders AMB Hemoglobin A1c Today Z13.9 - Encounter for screening, unspecified Complete Blood Count Auto Diff Today E11.9 - Type 2 diabetes mellitus without complications Comprehensive [place]. Panel Fast Today E11.9 - Type 2 diabetes mellitus without complications TSH reflex Free T4 Today E11.9 - Type 2 diabetes mellitus without complications UA CC w/rflx Micro + Cult Today E11.9 - Type 2 diabetes mellitus without complications Lipid Panel Today E11.9 - Type 2 diabetes mellitus without complications Prostate Specific Antigen Scr Today Z12.5 - Encounter for screening for malignant neoplasm of prostate Microalbumin, Random (w Creat) Today E11.42 - Type 2 diabetes mellitus with diabetic polyneuropathy Pneumococcal 20 Immunization Today Z23 - Encounter for immunization Medications: New pneumoc 20-jackie conj-dip cr(PF) 0.5 mL IM ONCE 0.5 mL 0RF Z23 - Encounter for immunization Coding Level of Care Code Est Pt Level 3 (30051) Diagnoses Diabetes E11.9 Screening PSA (prostate specific antigen) Z12.5 Type 2 diabetes mellitus with diabetic polyneuropathy E11.42 Additional Codes PETAR-7 Assessment Billing - PETAR-7 Assessment Tool: PETAR-7 Assessment 08888 ([id number])
[2024-03-23 16:32] VITALS: PULSE 80
== END 2024-03-23 14:43 | disposition home or self-care (01) ==
PROVIDERS: PCP Nurse Practitioner Family; Visit Provider Nurse Practitioner Family
DX: E11.42 Type 2 diabetes mellitus with diabetic polyneuropathy (principal); Z12.5 Encounter for screening for malignant neoplasm of prostate; Z23 Encounter for immunization
CPT/HCPCS: 83036; 90471; 90677; 99213

== ENCOUNTER 2024-03-26 09:12 | Outpatient (AMB) | payer MEDICARE, OTHER, SELFPAY ==
[2024-03-26 09:18] VITALS: BP 124/70; PULSE 66; TEMP 36.4; O2SAT 97; BMI 26.1
--- NOTE | 2024-03-26 09:18 | AM.OFFWIN_ITS ---
Intake Vital Signs 03/26/24 09:18 Height 6 ft 1 in Weight 198 lb BMI 26.1 BP 124/70 Blood Pressure Location Rt brachial Position Sitting Pulse 66 Pulse Source Pulse Oximeter Temp 97.6 F Temp Source Oral Pulse Oximetry (%) 97 Oxygen Delivery Method Room Air Intake Visit Reasons: EP ?Sinus infection Intake Note: Pt is here today c/o sinus pressure and nausea Patient Tobacco Use Status: Never used Tobacco Allergies No Known Allergies [No Known Allergies*] Allergy (Verified 03/26/24 09:42) Medication List - Last Reconciled 03/26/24 by Precious Braxton, [employer] ammonium lactate 12% appl topical BID antiarthritic combination no.2 (glucosamine-chondroitin) mg PO atorvastatin 20 mg PO DAILY blood sugar diagnostic (FreeStyle Lite Strips) As directed three times a day cetirizine (All Day Allergy (cetirizine)) 10 mg PO DAILY PRN dulaglutide (Trulicity) 3 mg subcut QWEEK ferrous sulfate 325 mg PO DAILY 90 days hydrochlorothiazide 25 mg PO DAILY lancets (FreeStyle Lancets) As directed three time a day lisinopril 10 mg PO DAILY 90 days metformin 1,000 mg PO BID multivitamin 1 tab PO DAILY omega-3 fatty acids (Fish Oil Concentrate) 1,000 mg PO DAILY omeprazole 20 mg PO DAILY pentoxifylline ER 400 mg PO BID 90 days sildenafil 50 mg PO DAILY PRN tamsulosin 0.4 mg PO BEDTIME vitamin E (dl, acetate) 450 mg PO DAILY 90 days HPI HPI Comments History of Present Illness Details 68-year-old male with diabetes here toda y with complaints of a cough and nasal drainage. He reports that about 10 days ago he became ill with the upper respiratory infection. He reports that he had a cough and nasal drainage. He was using [id number] Delsym with positive affect. This morning upon waking he felt great. However when he went to go walk his dog and bend over he immediately felt dizzy, had to sit down and had some nausea and cold sweats. He denies striking his head. He was able to call for help. He reports that after sitting still for about 10 minutes he felt better. He was able to get up and come to the office today for evaluation. He did test his blood sugar at the time of this incident reports that it was 112 mg/dL. He was also able to test his blood pressure and it was 136/76. He tested for COVID and this was negative. He admits to being exposed to sick grandkids with similar symptoms. He denies fever, chills, ear pain, sore throat, chest pain, shortness of breath. exam Awake alert NAD Sclera and conjunctiva clear bilat Nares mucoid discharge bilat, turbinates pale edematous, + sinus tenderness with palpation bilat TM intact with congestion bilat, worse on the right MMM, pharynx WNL RRR LS CTAB Plan I reviewed his renal function. The last GFR was September of 2023 54. The plan will be to treat him with Augmentin 1 tab p.o. b.i.d. for 7 days. Advised to take with food to avoid GI upset. Also prescribed Flonase to be used twice per day. Advised to change positions slowly. Fall risk education provided. Educated on reason return to the office. This note is constructed using voice recognition software. While every effort has been made to ensure accuracy in emt i/99, still errors may have been included Sometimes, these errors may affect the content or meaning of the given sentence . Total time spent caring for the patient today was 30 minutes. This includes time spent before the visit reviewing the chart, time spent during the visit, a nd time spent after the visit on documentation [facility] Medical History (Updated 03/26/24 @ 09:56 by Precious Braxton [facility]) Diabetes GERD (gastroesophageal reflux disease) Barretts esophagus Patellofemoral arthritis of left knee Type 2 diabetes mellitus with diabetic polyneuropathy Subjective memory complaints Enlarged prostate Renal insufficiency Iron deficiency Hyperlipidemia HTN (hypertension) Hyperlipidemia LDL goal <100 Surgical History History of right inguinal hernia repair History of left knee surgery History of shoulder surgery History of tonsillectomy History of nasal surgery Hx of esophagogastroduodenoscopy Hx of colonoscopy History of foot surgery Family History Father Diabetes Mother Lung cancer Son No problems noted. Son No problems noted. Son No problems noted. Son No problems noted. Son No problems noted. Son No problems noted. Daughter No problems noted. Daughter No problems noted. Paternal Grandmother Diabetes Social History Household Members: Spouse Housing: House Alcohol intake: current Alcohol intake frequency: holidays/special occasions only Alcohol type: beer, wine, hard liquor and other Patient Tobacco Use Status: Never used Tobacco e-Cigarette/Vaping Use: Never Used Second Hand Smoke Exposure: No service: Yes Current occupational status: retired Cognitive needs: No Hearing needs: No Vision needs: No Physical Exam Vital Signs: Last Vital Signs Temp 97.6 F 03/26/24 09:18 Pulse 66 03/26/24 09:18 BP 124/70 03/26/24 09:18 Pulse Ox 97 03/26/24 09:18 Oxygen Delivery Method Room Air 03/26/24 09:18 BMI result Body Mass Index 26.1 Assessment & Plan Assessment & Plan (1) Acute sinusitis: Code(s): J01.90 - Acute sinusitis, unspecified Qualifiers: Sinusitis location: pansinusitis Recurrence: non-recurrent Qualified Code(s): J01.40 - Acute pansinusitis, unspecified (2) Dizziness: Code(s): R42 - Dizziness and giddiness (3) CKD (chronic kidney disease) stage 3, GFR 30-59 ml/min: Code(s): N18.30 - Chronic kidney disease, stage 3 unspecified Qualifiers: Chronic kidney disease stage 3 subtype: stage 3a (GFR 45-59) Qualified Code(s): N18.31 - Chronic kidney disease, stage 3a Plan: . Plan . Medications: New fluticasone propionate 50 mcg/actuation administer into each nostril 1 spray intranasal BID 16 grams 0RF amoxicillin-pot clavulanate 875-125 mg 1 tab PO BID 7 days 14 tabs 0RF Coding Level of Care Code Est Pt Level 4 (55780) Diagnoses Acute non-recurrent pansinusitis J01.40 Sinusitis location: pansinusitis Recurrence: non-recurrent Dizziness R42 Stage 3a chronic kidney disease N18.31 Chronic kidney disease stage 3 subtype: stage 3a (GFR 45-59)
== END 2024-03-26 10:16 | disposition home or self-care (01) ==
PROVIDERS: PCP Nurse Practitioner Family; Visit Provider Nurse Practitioner Family
DX: J01.40 Acute pansinusitis, unspecified (principal); R42 Dizziness and giddiness; N18.31 Chronic kidney disease, stage 3a
CPT/HCPCS: 99214

== ENCOUNTER 2024-04-16 08:22 | Outpatient (REF) | payer MEDICARE, OTHER, SELFPAY ==
[2024-04-16 08:37] LABS: MANUAL DIFF FLAG NO
[2024-04-16 09:35] LABS: Basophils Absolute Auto 0.1 X10*3/uL (0.0-0.2); Basophils Percent Auto 1.4 % (0-2); Eosinophils Absolute Auto 0.5 X10*3/uL (0.0-0.4); Eosinophils Percent Auto 7.3 % (0-4); Hemoglobin 15.6 g/dl (14.0-18.0); Imm Gran Abs Auto 0.04 X10*3/uL (0.00-0.03); Imm Gran Pct Auto 0.5 % (0.0-0.4); Lymphocytes Absolute Auto 1.7 X10*3/uL (1.2-4.9); Lymphocytes Percent Auto 23.5 % (20-40); Mean Corpuscular HGB Conc 33.2 g/dl (31.0-36.0); Mean Corpuscular Hemoglobin 28.2 pg (27.0-33.0); Mean Platelet Volume 8.9 fL (9.4-12.4); Monocytes Absolute Auto 0.6 X10*3/uL (0.1-1.2); Monocytes Percent Auto 8.1 % (2-11); Neutrophils Absolute Auto 4.3 x10*3/uL (2.0-8.3); Neutrophils Percent Auto 59.2 % (45-73); Platelet Count 269 X10*3/uL (160-400); Red Blood Count 5.53 X10*6/uL (4.60-5.80); Red Cell Distribution Width 14.6 % (11.0-16.0); White Blood Count 7.3 X10*3/uL (4.8-10.8)
[2024-04-16 10:13] LABS: Alanine Aminotransferase 28 U/L (0-40); Albumin Level 4.2 g/dL (3.5-5.0); Alkaline Phosphatase 56 U/L (39-117); Anion Gap 13 (12-20); Aspartate Amino Transferase 25 U/L (5-37); Bilirubin Total 0.6 mg/dL (0.0-1.0); Blood Urea Nitrogen 30 mg/dL (9-16); Calcium 9.6 mg/dL (8.4-10.2); Carbon Dioxide 25 mmol/L (22-29); Chloride 109 mmol/L (96-108); Cholesterol 126 mg/dL (<200); Estimated Glomerular Filt Rate 51; Glucose Fasting 139 mg/dL (60-99); HDL Cholesterol 38 mg/dL (>40); LDL Cholesterol Calculated 73 mg/dL (<100); Potassium 4.5 mmol/L (3.3-5.1); Sodium 142 mmol/L (135-145); Total Protein 6.4 g/dL (6.5-8.0); Triglycerides 78 mg/dL (<150)
[2024-04-16 10:21] LABS: Prostate Specific Antigen Scr 2.14 ng/mL (<0.05-4.0)
[2024-04-16 10:43] LABS: Creatinine Urine 223.86 mg/dL; Microalbum/Creatinine Ratio Ur 3.5 ug/mg cr (<30)
[2024-04-16 10:49] LABS: Appearance Urine Clear; Color Urine Yellow; Glucose Urine UA Negative (Negative); Leukocyte Esterase Urine Negative (Negative); Nitrite Urine Negative (Negative); PH 5.5 (5.0-9.0); Specific Gravity - Urine 1.025 (1.005-1.025); Urine Blood Negative (Negative); Urine Ketones Negative (Negative); Urine Protein Negative (Neg-Trace)
== END 2024-04-16 08:23 | disposition home or self-care (01) ==
LOC: HO.LAB 08:22
PROVIDERS: PCP Nurse Practitioner Family; Visit Provider Nurse Practitioner Family
DX: E11.9 Type 2 diabetes mellitus without complications (principal); E11.42 Type 2 diabetes mellitus with diabetic polyneuropathy; Z12.5 Encounter for screening for malignant neoplasm of prostate
CPT/HCPCS: 36415; 80053; 80061; 81003; 82043; 82570; 84153; 84443; 85025

== ENCOUNTER 2024-04-22 11:36 | Outpatient (AMB) | payer MEDICARE, OTHER, SELFPAY ==
--- NOTE | 2024-04-22 11:47 | MHC.OFFWIV ---
Intake Vital Signs 04/22/24 11:48 Height 6 ft 1 in Weight 197 lb BMI 26.0 BP 126/80 Blood Pressure Location Rt brachial Position Sitting Pulse 64 Pulse Source Pulse Oximeter Pulse Oximetry (%) 98 Oxygen Delivery Method Room Air Intake Visit Reasons: EP ? sinus, ear infection Intake Note: Patient here for sinus and ear infection that continue to return which started up again this week. Patient Tobacco Use Status: Never used Tobacco Allergies No Known Allergies [No Known Allergies*] Allergy (Verified 04/22/24 11:49) Do you need a note to return to daycare/school/sports/work: No HPI HPI Comments History of Present Illness Details Patient is a 68-year-old male complaining of dizziness, sinus pain and head congestion. He states he originally an episode of dizziness on March 26, came in this clinic and was diagnosed with sinusitis and given low-dose Augmentin, he was told it would be better for his blood sugars . He states his symptoms improved but never really went away and is now back to where he was before. He states if he moves his head too quickly he gets dizzy, he feels like he is off balance. He tells me he has a lot of mucus and keeps blowing his nose. He denies any fevers or shortness of breath. He tells me he has been using Sudafed nightly, an allergy pill nightly as well as Flonase, and it helps him get through the night but as soon as he sits up in the morning, his head congestion comes back. [facility] Medical History (Updated 03/26/24 @ 09:56 by Precious Braxton [facility]) Diabetes GERD (gastroesophageal reflux disease) Barretts esophagus Patellofemoral arthritis of left knee Type 2 diabetes mellitus with diabetic polyneuropathy Subjective memory complaints Enlarged prostate Renal insufficiency Iron deficiency Hyperlipidemia HTN (hypertension) Hyperlipidemia LDL goal <100 Surgical History History of right inguinal hernia repair History of left knee surgery History of shoulder surgery History of tonsillectomy History of nasal surgery Hx of esophagogastroduodenoscopy Hx of colonoscopy History of foot surgery Family History Father Diabetes Mother Lung cancer Son No problems noted. Son No problems noted. Son No problems noted. Son No problems noted. Son No problems noted. Son No problems noted. Daughter No problems noted. Daughter No problems noted. Paternal Grandmother Diabetes Social History Household Members: Spouse Housing: House Alcohol intake: current Alcohol intake frequency: holidays/special occasions only Alcohol type: beer, wine, hard liquor and other Patient Tobacco Use Status: Never used Tobacco e-Cigarette/Vaping Use: Never Used Second Hand Smoke Exposure: No service: Yes Current occupational status: retired Cognitive needs: No Hearing needs: No Vision needs: No Review of Systems Const All systems reviewed & are unremarkable except as noted in HPI and below Physical Exam Vital Signs: Last Vital Signs Pulse 64 04/22/24 11:48 BP 126/80 04/22/24 11:48 Pulse Ox 98 04/22/24 11:48 Oxygen Delivery Method Room Air 04/22/24 11:48 BMI result Body Mass Index 26.0 Const General: cooperative, healthy appearing, comfortable and no acute distress Orientation/consciousness: patient oriented x3 Limitations: no limitations HEENT Head: Yes normal to inspection Ears: hearing grossly normal bilaterally, external ears normal and TM's normal bilaterally General nose exam: Normal external nose present, Normal nares present and No nasal discharge present Face and sinus: Yes normal facial exam and Yes sinuses nontender Mouth: Normal oral and palatal mucosa present and moist mucous membranes Throat: Yes tonsils normal, Yes uvula midline and Yes posterior oropharynx abnormal (Erythema) Eyes General: appearance normal, both eyes and all related structures Neck Neck: Yes normal visual inspection Resp Effort & Inspection: normal respiratory effort, able to speak in complete sentences, no respiratory distress, not tachypneic, no tripod positioning and no use of accessory muscles Skin General skin exam: no rashes or lesions noted Neuro General: patient oriented x3 Extrem General: Yes normal to inspection and Yes no clubbing, cyanosis or edema Assessment & Plan Assessment & Plan (1) Acute sinusitis: Code(s): J01.90 - Acute sinusitis, unspecified Qualifiers: Sinusitis location: pansinusitis Recurrence: non-recurrent Qualified Code(s): J01.40 - Acute pansinusitis, unspecified Plan: Sent full-strength Augmentin to patient's pharmacy, recommended he continue the Sudafed, Flonase and allergy pill and might want to add a Neti pot with distilled water. Plan See above Medications: New amoxicillin-pot clavulanate 875-125 mg 1 tab PO Q12H 10 tabs 0RF Coding Level of Care Code Est Pt Level 3 (90351) Diagnoses Acute non-recurrent pansinusitis J01.40 Sinusitis location: pansinusitis Recurrence: non-recurrent
[2024-04-22 11:48] VITALS: BP 126/80; PULSE 64; O2SAT 98; BMI 26.0
== END 2024-04-22 12:20 | disposition home or self-care (01) ==
PROVIDERS: PCP Nurse Practitioner Family; Visit Provider Physician Assistant
DX: J01.40 Acute pansinusitis, unspecified (principal)

== ENCOUNTER → 2024-04-22 11:36 | Outpatient (BNVA) | payer MEDICARE, OTHER, SELFPAY | PROVIDERS: PCP Nurse Practitioner Family | DX: J01.40 Acute pansinusitis, unspecified (principal) | CPT/HCPCS: 99212 ==

== ENCOUNTER 2024-05-06 09:39 | Outpatient (AMB) | payer MEDICARE, OTHER, SELFPAY ==
--- NOTE | 2024-05-06 09:48 | A.OFFVIS_ITS ---
Intake Visit Reasons: OV left knee pain Intake Note: Michael is a 68 year old male who presents today for a follow up of his left knee OA, last injection 11/06/23(40). Patient reports eh is having pain in his left knee. He mentions that his last injection gave him about a month of relief and would like to start getting gel injections. Patient has tried and failed 3 + months of taking Tylenol and Ibuprofen, at home exercises and knee bracing. Allergies No Known Allergies [No Known Allergies*] Allergy (Verified 05/06/24 10:06) HPI HPI OV left knee pain: Details: 68-year-old right hand dominant male who presents in the office today for a follow-up of left knee pain. I last saw the patient in the office on 11/06/23 when he was given a cortisone injection in the left knee. While in the office today, the patient reports experiencing pain in the left knee. He mentions his last cortisone injection in the left knee provided him about a month of relief. However, he mentions his last cortisone injection did affect his blood glucose with a slight spike in his HbA1c, so he wishes to avoid further cortisone injections. He has tried and failed more than 3 months of OTC Tylenol and ibuprofen, home exercises, and knee bracing. He showed interest in starting gel injections for pain relief. Patient has a surgical history of an ACL repair approximately 32 years ago. Patient has a significant medical history of diabetes mellitus. [facility] Medical History (Updated 03/26/24 @ 09:56 by AMANDA Dia-LOURDES) Diabetes GERD (gastroesophageal reflux disease) Barretts esophagus Patellofemoral arthritis of left knee Type 2 diabetes mellitus with diabetic polyneuropathy Subjective memory complaints Enlarged prostate Renal insufficiency Iron deficiency Hyperlipidemia HTN (hypertension) Hyperlipidemia LDL goal <100 Surgical History History of right inguinal hernia repair History of left knee surgery History of shoulder surgery History of tonsillectomy History of nasal surgery Hx of esophagogastroduodenoscopy Hx of colonoscopy History of foot surgery Family History Father Diabetes Mother Lung cancer Son No problems noted. Son No problems noted. Son No problems noted. Son No problems noted. Son No problems noted. Son No problems noted. Daughter No problems noted. Daughter No problems noted. Paternal Grandmother Diabetes Social History Household Members: Spouse Housing: House Alcohol intake: current Alcohol intake frequency: holidays/special occasions only Alcohol type: beer, wine, hard liquor and other Patient Tobacco Use Status: Never used Tobacco e-Cigarette/Vaping Use: Never Used Second Hand Smoke Exposure: No service: Yes Current occupational status: retired Cognitive needs: No Hearing needs: No Vision needs: No Review of Systems Const All systems reviewed & are unremarkable except as noted in HPI and below Physical Exam Const General: cooperative, healthy appearing and no acute distress Resp Effort & Inspection: normal respiratory effort and able to speak in complete sentences Cardio Rate: regular rate Peripheral pulses: Peripheral pulses 2+ throughout GI Palpation (GI): Soft to palpation Skin Lesions: no lesions Rashes: no rashes Extrem Other: Left knee: Normal to inspection. No ecchymosis, erythema, or joint effusion. No tenderness to palpation along the medial or lateral joint lines. Full knee extension and flexion. Crepitus felt with ROM. Negative Eryn's. NVI. Assessment & Plan Assessment & Plan (1) Arthritis of left knee: Code(s): M17.12 - Unilateral primary osteoarthritis, left knee Category: Medical Plan Mr. Martinez is a 68-year-old right hand dominant male who presents in the office today for a follow-up of left knee pain. I last saw the patient in the office on 11/06/23 when he was given a cortisone injection in the left knee. While in the office today, the patient reports experiencing pain in the left knee. He mentions his last cortisone injection in the left knee provided him about a month of relief. However, he mentions his last cortisone injection did affect his blood glucose with a slight spike in his HbA1c, so he wishes to avoid further cortisone injections. He has tried and failed more than 3 months of OTC Tylenol and ibuprofen, home exercises, and knee bracing. He showed interest in starting gel injections for pain relief. Patient has a surgical history of an ACL repair approximately 32 years ago. Patient has a significant medical history of diabetes mellitus. We discussed the role of gel injection, and the patient is interested in getting started with it. The office will petition the insurance company for approval of the gel injection. I have placed an order for topical pain cream. If this is not covered, then I will send a prescription for topical diclofenac cream to the pharmacy. Follow-up will be pending gel injection approval or denial from insurance, or sooner if needed. Patient Instructions: Scribed by Alda Sequeira biomedical instrument technician, for Delfina Wheeler PA-C on 05/06/24 at 10:06 am EST. Coding Level of Care Code Est Pt Level 3 (21571) Diagnoses Arthritis of left knee M17.12
== END 2024-05-06 10:12 | disposition home or self-care (01) ==
PROVIDERS: PCP Nurse Practitioner Family; Visit Provider Physician Assistant
DX: M17.12 Unilateral primary osteoarthritis, left knee (principal)
CPT/HCPCS: 99213

== ENCOUNTER → 2024-05-06 09:39 | Outpatient (BNVA) | payer MEDICARE, OTHER, SELFPAY | PROVIDERS: PCP Nurse Practitioner Family; Visit Provider Physician Assistant | DX: M17.12 Unilateral primary osteoarthritis, left knee (principal) | CPT/HCPCS: 99212 ==

== ENCOUNTER 2024-06-09 09:17 | Outpatient (AMB) | payer MEDICARE, OTHER, SELFPAY ==
--- NOTE | 2024-06-09 09:20 | A.OFFVIS_ITS ---
Intake Visit Reasons: Left Knee Durolane Gel Injection Intake Note: Michael is a 68 year old male who presents today for his left knee Durolane injection. Allergies No Known Allergies [No Known Allergies*] Allergy (Verified 06/09/24 09:29) HPI HPI Left Knee Durolane Gel Injection: Details: 68-year-old male who presents in the office today for a follow-up of left knee pain. I last saw the patient in the office on 05/06/24 when we discussed the role of gel injection and petitioned the insurance company for approval of it. He was also prescribed topical pain medication. While in the office today, the patient is interested in obtaining a Durolane injection today. The patient has a medical history of diabetes mellitus. [facility] Medical History (Updated 03/26/24 @ 09:56 by Precious Braxton [facility]) Diabetes GERD (gastroesophageal reflux disease) Barretts esophagus Patellofemoral arthritis of left knee Type 2 diabetes mellitus with diabetic polyneuropathy Subjective memory complaints Enlarged prostate Renal insufficiency Iron deficiency Hyperlipidemia HTN (hypertension) Hyperlipidemia LDL goal <100 Surgical History History of right inguinal hernia repair History of left knee surgery History of shoulder surgery History of tonsillectomy History of nasal surgery Hx of esophagogastroduodenoscopy Hx of colonoscopy History of foot surgery Family History Father Diabetes Mother Lung cancer Son No problems noted. Son No problems noted. Son No problems noted. Son No problems noted. Son No problems noted. Son No problems noted. Daughter No problems noted. Daughter No problems noted. Paternal Grandmother Diabetes Social History Household Members: Spouse Housing: House Alcohol intake: current Alcohol intake frequency: holidays/special occasions only Alcohol type: beer, wine, hard liquor and other Patient Tobacco Use Status: Never used Tobacco e-Cigarette/Vaping Use: Never Used Second Hand Smoke Exposure: No service: Yes Current occupational status: retired Cognitive needs: No Hearing needs: No Vision needs: No Review of Systems Const All systems reviewed & are unremarkable except as noted in HPI and below Physical Exam Const General: cooperative, healthy appearing and no acute distress Resp Effort & Inspection: normal respiratory effort and able to speak in complete sentences Cardio Rate: regular rate Peripheral pulses: Peripheral pulses 2+ throughout GI Palpation (GI): Soft to palpation Skin Lesions: no lesions Rashes: no rashes Extrem Other: Left knee: Normal to inspection. No ecchymosis, erythema, or joint effusion. No tenderness to palpation along the medial or lateral joint lines. Full knee extension and flexion. Crepitus felt with ROM. Negative Eryn's. NVI. Office Procedures AMB Joint Injection/Aspiration Joint Injection/Aspiration Primary Site: left knee Prep: site was prepped using aseptic technique, ethochloride spray was applied and injection warnings given Injected: other (Durolane ) Approach Used: anterolateral Procedure: The patient tolerated the procedure well, but had some pain with the injection and there was some relief with the local anesthesia Coding 28244 - Large joint Procedure code (CPT) selection complete Assessment & Plan Assessment & Plan (1) Arthritis of left knee: Code(s): M17.12 - Unilateral primary osteoarthritis, left knee Category: Medical Plan Mr. Marie is a 68-year-old male who presents in the office today for a follow-up of left knee pain. I last saw the patient in the office on 05/06/24 when we d iscussed the role of gel injection and petitioned the insurance company for approval of it. He was also prescribed topical pain medication. While in the office today, the patient is interested in obtaining a Durolane injection today. The patient has a medical history of diabetes mellitus. The patient was offered a Durolane gel injection in the left knee. The patient was explained the risks, benefits, and alternatives to receiving this injection. After receiving consent for the injection, the patient had the procedure done while in the office today. The patient tolerated the procedure well with no complication. Follow-up will be PRN, or sooner if needed. Patient Instructions: Scribed by Alda Sequeira medical insurance biller, for Delfina Wheeler PA-C on 06/09/24 at 9:40 am EST. Coding Level of Care Code Procedure Only Diagnoses Arthritis of left knee M17.12 CPT Codes Coding - 60970 Large joint: 24355 - Large joint ([id number])
== END 2024-06-09 09:36 | disposition home or self-care (01) ==
PROVIDERS: PCP Nurse Practitioner Family; Visit Provider Physician Assistant
DX: M17.12 Unilateral primary osteoarthritis, left knee (principal)
CPT/HCPCS: 20610

== ENCOUNTER → 2024-06-09 09:17 | Outpatient (BNVA) | payer MEDICARE, OTHER, SELFPAY | PROVIDERS: PCP Nurse Practitioner Family; Visit Provider Physician Assistant | DX: M17.12 Unilateral primary osteoarthritis, left knee (principal) | CPT/HCPCS: 20610; J7318 ==

== ENCOUNTER 2024-06-27 13:11 | Outpatient (AMB) | payer MEDICARE, OTHER, SELFPAY ==
--- NOTE | 2024-06-26 21:32 | A.OFFVIS_ITS ---
Intake Visit Reasons: 6m/med review Intake Note: Patient is present for 6 months follow up med review Urology Med: Vitamin E, Pentoxifyline, Sildenafil, atates no longer taking Tamsulosin Antibiotic Allergy: none Blood Thinner: none Last PVR: 29ml's Todays PVR: 0ml's Director Of Patient Care Required: No Accompanied by: Self / Same As Patient Allergies No Known Allergies [No Known Allergies*] Allergy (Verified 06/27/24 13:08) Medication List - Last Reconciled 06/27/24 by Christy Morris MD ammonium lactate 12% appl topical BID antiarthritic combination no.2 (glucosamine-chondroitin) mg PO atorvastatin 20 mg PO DAILY blood sugar diagnostic (FreeStyle Lite Strips) As directed three times a day cetirizine (All Day Allergy (cetirizine)) 10 mg PO DAILY PRN dulaglutide (Trulicity) 3 mg subcut QWEEK ferrous sulfate 325 mg PO DAILY 90 days fluticasone propionate 50 mcg/actuation 1 spray intranasal BID hydrochlorothiazide 25 mg PO DAILY lancets (FreeStyle Lancets) As directed three time a day lisinopril 10 mg PO DAILY 90 days metformin 1,000 mg PO BID multivitamin 1 tab PO DAILY omega-3 fatty acids (Fish Oil Concentrate) 1,000 mg PO DAILY omeprazole 20 mg PO DAILY pentoxifylline ER 400 mg PO BID 90 days sildenafil 50 mg PO DAILY PRN vitamin E (dl, acetate) 450 mg PO DAILY 90 days HPI Comments Details: 06/26/24--6 month fu. 12/31/23--followed for BPH and Peyronie's. He was prescribed tamsulosin, vitamin-E and pentoxifylline. Michael states he has noticed about 50% improvement in the curvature. I have discussed options to continue with the medication or see Dr. Perkins for an injection into the plaque itself. Michael wants to see how things go over the next few months. In terms of his voiding, he did not refill the tamsulosin because he called the office and did not get a call back so he did not think the tamsulosin was necessary however he feels that he is emptying adequately at this time in that the tamsulosin did not make a difference. PVR today is minimal. I reviewed testing today including renal ultrasound done 01/07/2024 which is within normal limits and PSA 9/28/24-2.14. renal ultrasound 11/27/2023-within normal limits 04/16/24--PSA-2.14 ng/mL Review of chart: 12/31/23--Michael is a 68-year-old male with complaints of slowing of urinary stream and nocturia. He also complains that he notices a bending of the penis with erections. I will prescribe tamsulosin and have discussed trial of vitamin-E and pentoxifylline. [facility] Medical History Diabetes GERD (gastroesophageal reflux disease) Barretts esophagus Patellofemoral arthritis of left knee Type 2 diabetes mellitus with diabetic polyneuropathy Subjective memory complaints Enlarged prostate Renal insufficiency Iron deficiency Hyperlipidemia HTN (hypertension) Hyperlipidemia LDL goal <100 Surgical History History of right inguinal hernia repair History of left knee surgery History of shoulder surgery History of tonsillectomy History of nasal surgery Hx of esophagogastroduodenoscopy Hx of colonoscopy History of foot surgery Family History Father Diabetes Mother Lung cancer Son No problems noted. Son No problems noted. Son No problems noted. Son No problems noted. Son No problems noted. Son No problems noted. Daughter No problems noted. Daughter No problems noted. Paternal Grandmother Diabetes Social History Household Members: Spouse Housing: House Alcohol intake: current Alcohol intake frequency: holidays/special occasions on ly Alcohol type: beer, wine, hard liquor and other Patient Tobacco Use Status: Never used Tobacco e-Cigarette/Vaping Use: Never Used Second Hand Smoke Exposure: No service: Yes Current occupational status: retired Cognitive needs: No Hearing needs: No Vision needs: No Review of Systems Const All systems reviewed & are unremarkable except as noted in HPI and below Reports no additional complaints Eyes Reports no additional complaints ENT Reports no additional complaints Card Reports no additional complaints Resp Reports no additional complaints GI Reports no additional complaints Reports as per HPI Musc Reports no additional complaints Skin/Breast Reports system reviewed and no additional complaints, except as documented Neuro Reports no additional complaints Psych Reports no additional complaints Endo Reports no additional complaints Randy/Lymph Reports no additional complaints Aller/Immun Reports no additional complaints Office Procedures Post Void Residual Post Residual Void Post Void Residual (PVR): 0 48105-Ltbs Void Residual by ultrasound Results AMB Urinalysis, Automated UA Leukoctes 0 Rigoberto/uL Last Edit by Rosie Rosa CMA on 06/27/24 13:28 UA Nitrite Negative Last Edit by Rosie Rosa, TIFF on 06/27/24 13:28 UA Urobilinogen 0.2 mg/dL Last Edit by Rosie Rosa, TIFF on 06/27/24 13:2 8 UA Protein 0 mg/dL Last Edit by Rosie Rosa CMA on 06/27/24 13:28 UA pH 5.5 Last Edit by Rosie Rosa, TIFF on 06/27/24 13:28 UA Blood 0 Mati/uL Last Edit by Rosie Rosa, TIFF on 06/27/24 13:28 UA Specific [place] 1.030 Last Edit by Rosie Rosa, TIFF on 06/27/24 13: 28 UA Ketone Negative Last Edit by Rosie Rosa, TIFF on 06/27/24 13:28 UA Bilirubin 0 mg/dL Last Edit by Rosie Rosa CMA on 06/27/24 13:28 UA Glucose 0 mg/dL Last Edit by Rosie Rosa, TIFF on 06/27/24 13:28 Results Reviewed Results Reviewed: Laboratory Last Values Urine pH (Auto) 5.5 06/27/24 13:14 Specific [place] (Auto) 1.030 06/27/24 13:14 Urine Protein (Auto) 0 mg/dL 06/27/24 13:14 Glucose (UA)(Auto) 0 mg/dL 06/27/24 13:14 Urine Ketones (Auto) Negative 06/27/24 13:14 Urine Blood (Auto) 0 Mati/uL 06/27/24 13:14 Urine Nitrite (Auto) Negative 06/27/24 13:14 Urine Bilirubin (Auto) 0 mg/dL 06/27/24 13:14 Urine Urobilinogen (Auto) 0.2 mg/dL 06/27/24 13:14 Leukocyte Esterase (Auto) 0 Rigoberto/uL 06/27/24 13:14 Date of Service: 11/27/23 EXAMINATION: US RETROPERITONEAL COMPLETE (RENAL) CLINICAL INFORMATION: Other difficulties with micturition. COMPARISON: Renal ultrasound with bladder 06/16/2018. CT abdomen and pelvis 10/03/2015. TECHNIQUE: Real-time imaging of the kidneys and bladder. FINDINGS: RIGHT KIDNEY: 11.2 x 5.0 x 4.8 cm (SAG x AP x TRV). The kidney is normal in size, contour, and echogenicity. Renal cortical thickness is normal. 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 LEFT KIDNEY: 10.4 x 5.5 x 4.9 cm (SAG x AP x TRV). The kidney is normal in size, contour, and echogenicity. Renal cortical thickness is normal. No calculi or focal parenchymal lesions. No hydronephrosis. BLADDER: Well distended and normal. Bilateral ureteral jets are demonstrated. Prevoid bladder volume is 127 mL. Postvoid bladder volume is 43.8 mL. Prostate volume 19.7 mL. IMPRESSION: 1. No renal calculi or hydronephrosis of either kidney. 2. Prominent post void bladder residual of 45 mL. Assessment & Plan Assessment & Plan (1) BPH (benign prostatic hyperplasia): Code(s): N40.0 - Benign prostatic hyperplasia without lower urinary tract symptoms Category: Medical (2) Peyronie's disease: Code(s): N48.6 - Induration penis plastica Category: Medical Plan vitamin-E daily, pentoxifylline bid. Has had 50% improvement. Re-evaluate in 4 months Orders: Orders AMB Post Void Residual by ultrasound Today N40.0 - Benign prostatic hyperplasia without lower urinary tract symptoms AMB Urinalysis Automated Today Z13.9 - Encounter for screening, unspecified Medications: Refilled pentoxifylline ER 400 mg PO BID 90 days 180 tabs 3RF vitamin E (dl, acetate) 450 mg PO DAILY 90 days 90 caps 3RF Discontinued tamsulosin Discontinued Reason: Patient no longer taking 0.4 mg PO BEDTIME 90 caps 3RF Patient Instructions: The patient had an opportunity to ask questions regarding treatment plan. The patient expressed understanding and agreement with the above treatment plan. The patient is aware they should contact our office by phone for worsening of their current condition or the appearance of new symptoms. Compliance is encouraged with any medications and followup testing that is ordered. It is a privilege to be allowed the opportunity to participate in the urologic care of your patient. If you have any questions or concerns regarding treatment for the above conditions please do not hesitate to contact me. The office telephone contact is [phone]. This note is constructed in part using voice recognition software. While every effort has been made to ensure accuracy family and consumer science professor errors may have been included. Yours sincerely, Christy Morris MD Coding Level of Care Code Est Pt Level 4 (27404) Diagnoses BPH (benign prostatic hyperplasia) N40.0 Peyronie's disease N48.6 CPT Codes Post Residual Void - PVR CPT Code: 33357-Hixx Void Residual by ultrasound ([id number])
--- OUTSIDE RECORDS SUMMARY | 2024-06-29 15:36 | XMS_ITS ---
Author Name [facility] Organization [facility] Address [address] [place] [id number] Care Team Providers Care Electric Meter Setter Name Role Phone ULICES MARIA Primary Care Provide r Unavailable Insurance Providers: All historical and current Section Date Range: From patient's date of to the date document was created. This section includes the names of all active insurance providers for the patient. Insurance Provider Type of Coverage Plan Name Start of Policy Coverage End of Policy Coverage Group Number Member ID Insurance Provider's Telephone Number Policy Haney's Name Patient's Relationship to Policy Haney MEDICARE (WNR) MEDICARE (M) PART A Oct 18, 2021 PART A [id number] [facility] SIMBA KIDD PATIENT MEDICARE (WNR) MEDICARE (M) PART B Oct 18, 2021 PART B [id number] [facility] [phone] SIMBA KIDD PATIENT FOR LIFE TFL* Oct 18, 2021 [id number] SIMBA KIDD PATIENT [facility] (WNR) TRICA RE(WN R) November 17, 2016 (WN) [id number] [phone] SMIBA KIDD JJ PATIENT Selected Encounter This section includes the information on record at [place] for the Encounter. Date/Time Encounter Type Encounter Description Reason Provider Source Oct 26, 2023 01:30 PM HEARING AID FITTING/CHECKIN G AUDIOLOGY ICD-10-CM Z46.1 Encounter for fitting and adjustment of hearing aid LUIS E BONILLA IHE Encounter Template Text not used by [facility] Assessments - Encounter Diagnoses This section includes the primary and secondary diagnoses documented for the Encounter. Date/Time Primary/Secondary Diagnosis Diagnosis Name Provider Source Oct 26, 2023 01:56 PM PRIMARY Encounter for fitting and adjustment of hearing aid LUIS E BONILLA [facility] Oct 26, 2023 01:56 PM SECONDARY Sensorineural hearing loss, bilateral LUIS E BONILLA [facility] Plan of Treatment: Future Appointments (+ 6 months) and Future Tests (+/- 45 days) The Plan of Treatment section includes future care activities for the patient from all [place] treatmentfacilities. This section includes future appointments and future orders which are active, pending or scheduled. Future Appointments This section includes appointments that were scheduled to occur 6 months from the date of the Encounter, up to a maximum of 20 appointments. The data comes from all [place] treatment facilities. Appointment Date/Time Appointment Type Appointme nt Facility Name Apr 06, 2024 11:30 AM AMB[facility] - MEDICINE [facility] Apr 26, 2024 03:00 PM [facility] Social History: Smoking Status (Most current) and Tobacco Use (All prior to encounter date) This section includes the most current, and the historical, smoking and tobacco- related health factors from the [facility] facility where the Encounter took place. Current Smoking Status This section includes the most current smoking, or tobacco-related health factor, from the [facility] facility where the Encounter took place. Date/Time Current Smoking Status Comment Ebony perez Apr 06, 2023 10:22 AM VA-TOBACCO NEVER USED [facility] Advance Directives: All historical and current Section Date Range: From patient's date of to the date document was created. This section includes ALL of a patient's completed or amended VA Advance and Rescinded Directives. The entries below indicate that a directive exists for the patient, but an actual copy is not included with this document. The data comes from all [place] facilities. Date Advance Directives Provider Source Apr 06, 2023 ADVANCE DIRECTIVE TRACEE KYLE FIELD Encounter Notes: All associated encounter notes This section contains the clinical notes associated to the Encounter. Date/Time Encounter Note(s) Provider Source Oct 26, 2023 09:56 AM AUDIOLOGY E & M NO TE: LOCAL TITLE: AUDIOLOGY CLINIC STANDARD TITLE: AUDIOLOGY E & M NOTE DATE OF NOTE: OCT 26, 2023@09:56 ENTRY DATE: OCT 26, 2023@09:56:59 AUTHOR: LUIS E BONILLA EXP COSIGNER: URGENCY: STATUS: COMPLETED has a history of bilateral sensorineural hearing loss. He was seen on 10-26-23 for hearing aid follow up regarding his Oticon miniRITE Rs. He reports that sounds like leaves and other high pitched/background noise is too pronounced. He adds that he uses the vanessa and this improves conditions in noise. He notes he replaced domes and wax guards about once a month. Aids were connected to Kontera and gain for the lowest and highest frequencies was rolled off. will try the new settings and contact the clinic as needed. /reggie/ Tarun KAYE, [facility]-A STAFF CONSERVATION POLICY ANALYST Signed: 10/26/2023 14:00 LUIS E BONILLA [facility]
--- OUTSIDE RECORDS SUMMARY | 2024-06-29 15:36 | XMS_ITS | Encounter Summary ---
Author Name [facility] [place] [facility] [place] [facility] [place] Address [address] [place] [id number] Care Team Providers Care Tar Man Name Role Phone ULICES MARIA Primary Care [...] PART A Oct 18, 2021 PART A [id number] [facility] SIMBA KIDD PATIENT MEDICARE (WNR) MEDICARE (M) PART B Oct 18, 2021 PART B [id number] [facility] SIMBA KIDD PATIENT FOR LIFE TFL* Oct 18, 2021 [id number] SIMBA KIDD PATIENT [facility] (WNR) TRICA RE(WN R) November 17, 2016 (WNR) [id number] [phone] SIMBA KIDD PATIENT Selected Encounter This section includes the information on record at [place] for the Encounter. Date/Time Encounter Type Encounter Description Reason Provider Source Jul 06, 2023 11:30 AM OFF/OP EST NOVEMBER X REQ PHY/QHP PRIMARY CARE/MEDICINE ICD-10-CM Z23 Encounter for GÉNESIS Nichole Shahid Encounter Template Text not used by [place] Assessments - Encounter Diagnoses This section includes the primary and secondary diagnoses documented for the Encounter. Date/Time Primary/Secondary Diagnosis Diagnosis Name Provider Source Jul 06, 2023 11:11 AM PRIMARY Encounter for MAXIMUS Nichole Plan of Treatment: Future Appointments (+ 6 months) and Future Tests (+/- 45 days) The Plan of Treatment section includes future care activities for the patient from all [place] treatmentfacilities. This section includes future appointments and future orders which are active, pending or scheduled. Future Appointments This section includes appointments that were scheduled to occur 6 months from the date of the Encounter, up to a maximum of 20 appointments. The data comes from all [place] treatment facilities. Appointment Date/Time Appointment Type Appointme nt Facility Name Oct 26, 2023 01:30 PM AMBULATORY - REHAB MEDICIN E [facility] Lab Results: +/- 30 days of the encounter This section includes the Chemistry and Hematology Lab Results on record with [place] for the patient. Radiology Reports and Pathology Reports are provided separately, in subsequent sections. Lab Results This section contains the Chemistry/Hematology Results that were resulted 30 days before or 30 daysafter the date of the Encounter. Date/Time Source Result Type Result - Unit Interpretation Reference Range Comment Jul 06, 2023 11:06 AM [place] HEPATITIS C ANTIBODY (HCV)-ARC Specimen Type: SERUM Comment: Hep C Ab: No HCV antibody detected. If recent infection is suspected or other evidence suggests HCV infection, consider HCV nucleic acid testing Ordering Provider: ULICES LUCAS Report Released Date/Time: Jul 06, 2023 10:11 AM Reporting Lab: [facility] [address] [facility] [address] Performing Lab: [facility] [address] [facility] [address] HEPATITIS C ANTIBODY NON-REACTIVE NON-REACTIVE Jul 06, 2023 11:06 AM [place] HIV 1&2 Ag/Ab SCREEN Specimen Type: SERUM No comment entered. Ordering Provider: ULICES LUCAS Report Released Date/Time: Jul 06, 2023 10:11 AM Reporting Lab: [facility] [address] [facility] [address] Performing Lab: [address] [address] HIV 1&2 Ag/Ab SCREEN NON-REACTIVE Nonreactive Jul 06, 2023 11:06 AM [place] BASIC METABOLIC PANEL (fasting) Specime n Type: SERUM No comment entered. Ordering Provider: ULICES LUCAS Report Released Date/Time: Jul 06, 2023 10:11 AM Reporting Lab: [address] [address] Performing Lab: [address] [address] UREA NITROGEN 35 mg/dL H 7-25 GLUCOSE 199 mg/dL H 65-100 SODIUM 140 mmol/L 135-145 POTASSIUM 4.2 mmol/L 3.5-5.0 CHLORIDE 106 mmol/L 100-110 CO2 24 meq/L 20-30 CREATININE, Serum 1.23 mg/dL 0.50-1.40 eGFR(CKD-EPI 2020) 65 mL/min >60 Jul 06, 2023 11:06 AM [place] LIPID PANEL FASTING Specimen Type: SERUM No comment entered. Ordering Provider: ULICES LUCAS Report Released Date/Time: Jul 06, 2023 10:11 AM Reporting Lab: [address] [address] Performing Lab: [address] [address] CHOLESTEROL 121 mg/dL TRIGLYCERIDE 176 mg/dL H 0-150 LDL calculated 48 mg/dL 0-129 CHOL/HDL 3.2 HDL CHOLESTEROL 38 mg/dL L 40-60 Jul 06, 2023 11:06 AM [place] LIVER FUNCTION Specimen Type: SERUM No comment entered. Ordering Provider: JOHN LUCASKA M Report Released Date/Time: Jul 06, 2023 10:11 AM Reporting Lab: [address] [address] Performing Lab: [address] [address] PROTEIN,TOTAL 6.2 g/dL 6.0-8.3 ALBUMIN 3.7 g/dL 3.5-5.0 ALKALINE PHOSPHATASE 52 U/L 40-150 AST 22 U/L 5-34 ALT 24 U/L BILIRUBIN, TOTAL 0.6 mg/dL 0.2-1.2 Jul 06, 2023 11:06 AM [place] CBC AND DIFF (AUTO) Specimen Type: BLOOD No comment entered. Ordering Provider: ULICES LUCAS Report Released Date/Time: Jul 06, 2023 10:11 AM Reporting Lab: [address] [address] Performing Lab: [address] [address] WBC 5.83 10*3/uL 4.50-11.00 RBC 4.82 10*6/uL 4.23-5.66 HGB 13.5 g/dL 12.8-17 HCT 41.6 39.2-50.4 MCV 86.3 fL 82-99 MCHC 32.5 g/dL 30.8-35.1 PLT 307 10*3/uL 140-360 RDW-CV 14.2 12.0-16.0 Freeborn, Abs 0.44 10*3/uL 0.30-1.10 MCH 28.0 pg 26.2-32.6 Neut % 64.8 43.7-75.8 Lymph % 22.0 14.0-42.3 Freeborn % 7.5 5.1-13.7 Eos % 3.8 0.4-6.8 Baso % 1.4 0.1-2.0 Neut, Abs 3.78 10*3/uL 2.20-7.60 Lymph, Abs 1.28 10*3/uL 1.00-3.20 Eos, Abs 0.22 10*3/uL 0.03-0.44 Baso, Abs 0.08 10*3/uL 0.01-0.13 Immature Gran % 0.5 0.0-0.7 Immature Gran, Abs 0.03 10*3/uL 0.00-0.06 Jul 06, 2023 11:06 AM [place] HEMOGLOBIN A1C PANEL Specimen Type: BLOOD Comment: Values obtained from A1C measurements can vary. For atypical A1C assays, a reported value of 7.0 could actually be between 6.72 and 7.28 if measured by a reference method. A reported value of 9.0 could actually be between 8.73 and 9.27. Ref: http://www.ng sp.org/CAPdat a.asp Ordering Provider: ULICES LUCAS Report Released Date/Time: Jul 06, 2023 10:11 AM Reporting Lab: [address] [address] Performing Lab: [address] [address] HEMOGLOBIN A1C 6.9 H 4.0-5.6 Jul 06, 2023 11:06 AM [place] TSH Specimen Type: SERUM No comment entered. Ordering Provider: ULICES LUCAS Report Released Date/Time: Jul 06, 2023 10:11 AM Reporting Lab: [address] [address] Performing Lab: [address] [address] TSH 2.35 u[IU]/mL 0.35-5.00 Vital Signs: All taken on the encounter date This section contains inpatient and outpatient Vital Signs collected on the date of the Encounter. Date/Time Temperature Pulse Blood Pressure Respiratory Rate SP02 Pain Height Weight Body Mass Index Source Jul 06, 2023 11:05 AM 194 lb 26 [facility] IELD Immunizations: All administered on the encounter date This section contains immunizations associated to the Encounter. Immunization Series Date Issued Reaction Comments ZOSTER RECOMBINANT Jul 06, 2023 Advance Directives: All historical and current Section Date Range: From patient's date of to the date document was created. This section includes ALL of a patient's completed or amended [place] Advance and Rescinded Directives. The entries below indicate that a directive exists for the patient, but an actual copy is not included with this document. The data comes from all [place] facilities. Date Advance Directives Provider Source Apr 06, 2023 ADVANCE DIRECTIVE TRACEE KYLE FIELD Encounter Notes: All associated encounter notes This section contains the clinical notes associated to the Encounter. Date/Time Encounter Note(s) Provider Source Jul 18, 2023 03:04 AM LETTERS: LOCAL TITLE: PATIENT LETTER (B) STANDARD TITLE: LETTERS DATE OF NOTE: JUL 18, 2023@03:04 ENTRY DATE: JUL 18, 2023@03:04:54 AUTHOR: Claudia MARIA COSIGNER: URGENCY: STATUS: COMPLETED JUL 18, 2023 [facility] KIDD [address], [place], [address] Dear BENJAMIN KIDD, Thank you for coming in for your lab tests. Your recent test results are as follows: stable labs LAB CHEMISTRY & HEMATOLOGY Collection DT Specimen Test Name Result Units Ref Range 07/06/2023 11:07 BLOOD WBC 5.83 K/cmm 4.50 - 11.00 RBC 4.82 M/cmm 4.23 - 5.66 HGB 13.5 g/dL 12.8 - 17 HCT 41.6 % 39.2 - 50.4 MCV 86.3 fl 82 - 99 MCH 28.0 pg 26.2 - 32.6 MCHC 32.5 g/dL 30.8 - 35.1 RDW-CV 14.2 % 12.0 - 16.0 PLT 307 K/cmm 140 - 360 UREA NITROGEN 35 H mg/dL 7 - 25 CREATININE, Serum 1.23 mg/dL 0.50 - 1.40 eGFR(CKD-EPI 2020 65 mL/min Ref: >=60 SODIUM 140 mmol/L 135 - 145 POTASSIUM 4.2 mmol/L 3.5 - 5.0 CHLORIDE 106 mmol/L 100 - 110 CO2 24 mEq/L 20 - 30 PROTEIN,TOTAL 6.2 g/dL 6.0 - 8.3 ALBUMIN 3.7 g/dL 3.5 - 5.0 ALK IVANA 52 U/L 40 - 150 AST 22 U/L 5 - 34 BILIRUBIN, TOTAL 0.6 mg/dL 0.2 - 1.2 ALT 24 U/L <6 - 55 07/06/2023 11:07 SERUM HIV Ag/Ab NON-REACTIVE Ref: Nonreactive 07/06/2023 11:06 SERUM !! HCV AB NON-REACTIVE Ref: NON-REACTIVE Lipid Profile Collection DT Specimen Test Name Result Units Ref Range 07/06/2023 11:06 SERUM CHOLESTEROL 121 mg/dL <7 - 199 07/06/2023 11:06 SERUM TRIGLYCERIDE 176 H mg/dL 0 - 150 07/06/2023 11:06 SERUM HDL CHOLESTEROL 38 L mg/dL 40 - 60 07/06/2023 11:06 SERUM LDL calculated 48 mg/dL 0 - 129 07/06/2023 11:06 SERUM CHOL/HDL 3.2 07/06/2023 11:07 BLOOD !! HEMOGLOBIN A1C 6.9 H % 4.0 - 5.6 GLUCOSE 199 H mg/dL 65 - 100 Thyroid Test Collection DT Spec TSH 07/06/2023 11:06 SERUM 2.35 If you do not already do so, going forward, I invite you to view your labs in [facility]. If you are not able to view them, you might need to upgrade your account to premium. Please call [phone] and speak with my nurse Laron if you have any questions or concerns. Sincerely, Ulices Up MD [facility] - [facility] Care [address] [place] [id number] [phone] [facility] Jul 06, 2023 11:06 AM PREVENTIVE MEDICIN E NURSING NOTE: LOCAL TITLE: CLINICAL REMINDERS/NURSING STANDARD TITLE: PREVENTIVE MEDICINE NURSING NOTE DATE OF NOTE: JUL 06, 2023@11:06 ENTRY DATE: JUL 06, 2023@11:06:58 AUTHOR: MAXIMUS HENRY EXP COSIGNER: URGENCY: STATUS: COMPLETED Herpes Zoster (Shingles) Vaccine: Administered: ZOSTER RECOMBINANT Date Administered: Jul 06, 2023 11:07 Series: Complete Sr Technical Sales Consultant: [employer]INE Lot: [id number] Exp Date: Jun 10, 2025 [facility]: [phone] Admin Route/Site: INTRAMUSCULAR/RIGHT DELTOID Dosage: 0.5mL Vaccine Information Statement(s): RECOMBINANT ZOSTER VACCINE VIS Aug 23, 2021 ([place]) Order By: Policy Administered By: Maximus Henry Vaccine Information Sheet (VIS) was given to the patient/caregiver, education regarding adverse reactions was discussed, as well as barriers to learning, if any, were acknowledged. Pneumococcal PPSV23 (Pneumovax): The patient declines to receive the recommended dose of PPSV23 vaccine. Immunization: PNEUMOCOCCAL POLYSACCHARIDE PPV23 Refusal Reason: PATIENT DECISION Patient refuses all immunization(s) in the PneumoPPV group Comment: received Shingrix today. Will wait. Date Documented: 07/06/23 11:09 COVID-19 Immunization: Refused Moderna Monovalent COVID-19 vaccine Immunization: COVID-19 (MODERNA), MRNA, LNP-S, PF, 50 MCG/0.5 ML (AGES 12+ YEARS) Refusal Reason: PATIENT DECISION Patient refuses all immunization(s) in the COVID-19 group Comment: [place] received Shingrix today. [place] wishes to wait. Date Documented: 07/06/23 11:10 /reggie/ MAXIMUS HENRY RN REGISTERED NURSE Signed: 07/06/2023 11:11 MAXIMUS HENRY [place]
--- OUTSIDE RECORDS SUMMARY | 2024-06-29 15:36 | XMS_ITS | Continuity of Care Document ---
Author Name [facility] Organization [facility] Care Team Providers Care Sterile Instrument Technician Name Role Phone [facility] Unavailable Unavailable Problems Combined list of problems from Department of Defense and Veterans Affairs facilities. It does not include entries that were removed or entered in error. Problem Status Onset Date Problem Type Date of Resolution Comments Source Allergic Rhinitis ([facility] [id number]) [facility] M[facility]dez[facility] Active Condition Apr 09, 2024 Entered By: GERRI ORNELAS Comment: Repeat EGD due 12/2024 [place] Benign Prostatic Hypertrophy without Outflow Obstruction ([facility] [id number]) Active Condition [place] Chronic kidney disease stage 3 Active Condition Apr 06, 2024 Entered By: RICK BONILLA Comment: eGFR 59 in APR 12 [place] Cognitive impairment Active Condition [place] Diabetes Mellitus Type 2 ([facility] [id number]) Active Condition [place] Diabetic polyneuropathy Active Condition [facility] Erectile Dysfunction ([facility] [id number]) Active Condition [place] Exposure to potentially hazardous substance Active Condition Oct 06, 2023 Entered By: AIMEE HERRERA Comment: Connect Snomed Code to ICD 10 Code refer to note dated 04/06/2023 [facility] GERD - Gastro-Esophageal Reflux Disease ([facility] [id number]) Active [facility] Hammer toe Active Condition Apr 06 023 Entered By: ULICES PAZ Comment: b/l [place] History of surgery Active Condition Apr 06, 2023 Entered By: ULICES PAZ Comment: Foot surgerySep 2022 Entered By: ULIECS PAZ Comment: Left knee surgerySep 2022 Entered By: ULICES PAZ Comment: Nasal surgerySep 2022 Entered By: ULICES PAZ Comment: Right inguinal hernia repairSep 2022 Entered By: ULICES PZA Comment: Shoulder surgerySep 2022 Entered By: ULICES PAZ Comment: Tonsillectomy tonsillectomy [place] HTN - Hypertension ([facility] [id number]) Active Condition [place] Hyperlipidemia ([facility] [id number]) Active Condition [place] Iron deficiency Active Condition [facility] OA - Osteoarthritis of knee Active Condition Apr 06, 2023 Entered By: ULICES PAZ Comment: Patellofemoral arthritis of left knee [place] Screening for malignant neoplasm of colon done Active Condition Apr 06, 2024 Entered By: RICK BONILLA Comment: Lasst Screen Colonoscopy approx 2018; Neg CRC or PolyposisSep 2023 Entered By: RICK BONILLA Comment: Done [place] Tinnitus Active Condition [place] Diagnosis: ICD-10-CM Z46.0 Encounter for fit/adjst of spectacles and contact lenses Active Diagnosis [facility] Diagnosis: ICD-10-CM 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, r eye Active Diagnosis [facility] Diagnosis: ICD-10-CM E11.9 Type 2 diabetes mellitus without complications Active Diagnosis [place] Diagnosis: ICD-10-CM Z46.1 Encounter for fitting and adjustment of hearing aid Active Diagnosis [facility] Diagnosis: ICD-10-CM Z23 Encounter for immunization Active Diagnosis [place] Diagnosis: ICD-10-CM H90.3 Sensorineural hearing loss, bilateral Active Diagnosis [facility] Diagnosis: ICD-10-CM I10 Essential (primary) hypertension Active Diagnosis [place] Medications Combined list of outpatient medications from Department of Defense and Veterans Affairs facilities.Medications provided include 1) outpatient medications from the last 15 months, and 2) patient-reported medications. Medication Details Route Status Patient Instructions Prescription Expires Prescription Number Last Dispense Date Ordering Provider Order Date Order Qty Source ATORVASTATI N CA 40MG TAB TAKE ONE-HALF TABLET BY MOUTH ONCE DAILY ORAL ACTIVE ULICES CORNELIUS 2022 [facility] IELD CETIRIZINE HCL 10MG TAB TAKE ONE TABLET BY MOUTH ONCE DAILY ORAL ACTIVE SHAZIA LOVETT PRORobynYOBANYBREA Scarlett 2022 IELD DULAGLUTIDE 3MG/0.5ML INJ,SOLN,PE N INJECT 3MG SUBCUTAN EOUSLY ONCE A WEEK SUBCUT ANEOUS ACTIVE SHAZIA LOVETTPRORobynYOBANYBREA 2022 IELD FERROUS SO4 325MG TAB TAKE ONE TABLET BY MOUTH ONCE DAILY ORAL ACTIVE SHAZIA LOVETT PROIVAN 2022 IELD FISH OIL 1000MG (500MG DHA/EPA) CAP,ORAL TAKE 1 CAPSULE BY MOUTH TWICE DAILY ORAL ACTIVE SHAZIA LOVETT PROIVAN 2022 IELD GLUCOSAMINE /CHONDROITI N CAP/TAB TAKE 1500/120 0MG BY MOUTH TWICE DAILY ORAL ACTIVE SHAZIA LOVETT PROIVAN 2022 IELD HYDROCHLORO THIAZIDE 25MG TAB TAKE ONE TABLET BY MOUTH ONCE DAILY ORAL ACTIVE SHAZIA LOVETT PROIVAN 2022 IELD LISINOPRIL 10MG TAB TAKE ONE TABLET BY MOUTH ONCE DAILY ORAL ACTIVE SHAZIA LOVETT PROIVAN 2022 IELD METFORMIN HCL 1000MG TAB TAKE ONE TABLET BY MOUTH TWICE DAILY ORAL ACTIVE SHAZIA LOVETT PRORobynYOBANYBREA 2022 IELD MULTIVITAMI NS W/MINERALS TAB TAKE ONE TABLET BY MOUTH ONCE DAILY ORAL ACTIVE ULICES CORNELIUS 2022 IELD OMEPRAZOLE 20MG CAP,EC TAKE 1 CAPSULE BY MOUTH EVERY MORNING 30 MINUTES BEFORE BREAKFAS T ORAL ACTIVE SHAZIA LOVETT PROIVAN 2022 IELD SILDENAFIL CITRATE 50MG TAB TAKE ONE TABLET BY MOUTH ONCE DAILY NEEDED TAKE 1 HOUR PRIOR TO SEXUAL ACTIVITY ORAL ACTIVE 05/19/2025 [id number] HSAZIA LOVETT PROIVAN 10/30/ 2024 18 [place] SILDENAFIL CITRATE 50MG TAB TAKE ONE TABLET BY MOUTH ONCE DAILY NEEDED TAKE 1 HOUR PRIOR TO SEXUAL ACTIVITY ORAL DISCONT INUED 04/11/2024 [id number] ULICES CORNELIUS 2022 6 [place] Immunizations Combined list of available immunizations from the Department of Defense and Veterans Affairs facilities. Immunization Series Date Given Administered By Site Reaction Lot Number CVX Code Drug Tissue Inserter Status Comments Source INFLUENZA, HIGH-DOSE, TRIVALENT, PF 2023 MIMA VERONICA LEFT DELTO ID [id number] 135 complet ed [facility] IELD ZOSTER RECOMBINANT 2022 JADAPETRGÉNESIS Luis A RIGHT DELTO ID [id number] 187 complet ed [place] ZOSTER RECOMBINANT 2022 JAIME KYLE RIGHT DELTO ID [id number] 187 [facility] INFLUENZA, HIGH-DOSE, QUADRIVALENT 2022 JAIME KYLE LEFT DELTO ID [id number] 197 complet ed [facility] COVID-19 (MODERNA), MRNA, LNP-S, BIVALENT, PF, 50 MCG/0.5 ML OR 25MCG/0.25 ML DOSE 1 2021 229 complet ed [facility] COVID-19 (MODERNA), MRNA, LNP-S, PF, 100 MCG/0.5ML DOSE OR 50 MCG/0.25ML DOSE 2021 207 complet ed [facility] COVID-19 (MODERNA), MRNA, LNP-S, PF, 100 MCG/0.5ML DOSE OR 50 MCG/0.25ML DOSE 3 2020 207 complet ed [facility] COVID-19 (MODERNA), MRNA, LNP-S, PF, 100 MCG/0.5ML DOSE OR 50 MCG/0.25ML DOSE 2 2020 207 complet ed [facility] COVID-19 (MODERNA), MRNA, LNP-S, PF, 100 MCG/0.5ML DOSE OR 50 MCG/0.25ML DOSE 1 2020 207 complet ed [facility] TDAP 2017 115 complet ed [facility] PNEUMOCOCCAL CONJUGATE PCV 13 2016 133 complet ed [facility] Results Combined list of recent chemistry, hematology and other laboratory results from Department of Defense and Veterans Affairs, ranging from 15 months to all on record, depending upon the facility. Order Name Results Value Reference Range Date Interpretation Specimen Comments Source MICROALB UMIN CREATINI NE RATIO PANEL MICROALBUM IN/CREATIN INE [MASS RATIO] IN URINE 4.7 mg/g 0 - 29.9 04/05 Specimen Type: URINE No comment entered. Ordering Provider: SLOANE ALANIS Report Released Date/Time: Apr 06, 2023 01:26 PM Reporting Lab: [address] [address] Performing Lab: [facility] [address] [place] MICROALB UMIN CREATINI NE RATIO PANEL MICROALBUM IN [MASS/VOLU ME] IN URINE 0.9 mg/dL 04/05 Specimen Type: URINE No comment entered. Ordering Provider: SLOANE ALANIS Report Released Date/Time: Apr 06, 2023 01:26 PM Reporting Lab: [facility] [address] [address] Performing Lab: [facility] [address] [place] MICROALB UMIN CREATINI NE RATIO PANEL CREATININE [MASS/VOLU ME] IN URINE 190.74 mg/dL 04/05 Specimen Type: URINE No comment entered. Ordering Provider: SLOANE ALANIS Report Released Date/Time: Apr 06, 2023 01:26 PM Reporting Lab: [facility] [address] [address] Performing Lab: [address] [address] [place] URINALYS IS COLOR OF URINE Yellow 04/05 Specimen Type: URINE Comment: If Glucose = >500 and Ketones are positive, please alert the Physician. Ordering Provider: SLOANE ALANIS Report Released Date/Time: Apr 06, 2023 01:26 PM Reporting Lab: [address] [address] Performing Lab: [address] [address] [place] URINALYS IS APPEARANCE OF URINE Clear 04/05 Specimen Type: URINE Comment: If Glucose = >500 and Ketones are positive, please alert the Physician. Ordering Provider: SLOANE ALANIS Report Released Date/Time: Apr 06, 2023 01:26 PM Reporting Lab: [address] [address] Performing Lab: [address] [address] [place] URINALYS IS GLUCOSE [MASS/VOLU ME] IN URINE Normalmg /dL 04/05 Specimen Type: URINE Comment: If Glucose = >500 and Ketones are positive, please alert the Physician. Ordering Provider: SLOANE ALANIS Report Released Date/Time: Apr 06, 2023 01:26 PM Reporting Lab: [address] [address] Performing Lab: [address] [address] [place] URINALYS IS KETONES [MASS/VOLU ME] IN URINE BY TEST STRIP NEGATIVE mg/dL 04/05 Specimen Type: URINE Comment: If Glucose = >500 and Ketones are positive, please alert the Physician. Ordering Provider: SLOANE ALANIS Report Released Date/Time: Apr 06, 2023 01:26 PM Reporting Lab: [facility] [address] [facility] [address] Performing Lab: [facility] [address] [facility] [address] [place] URINALYS IS ERYTHROCYT ES [PRESENCE] IN URINE SEDIMENT BY LIGHT MICROSCOPY NEGATIVE mg/dL 04/05 Specimen Type: URINE Comment: If Glucose = >500 and Ketones are positive, please alert the Physician. Ordering Provider: SLOANE ALANIS Report Released Date/Time: Apr 06, 2023 01:26 PM Reporting Lab: [facility] [address] [facility] [address] Performing Lab: [address] [address] [place] URINALYS IS PROTEIN [MASS/VOLU ME] IN URINE BY TEST STRIP 10 mg/dL 04/05 Specimen Type: URINE Comment: If Glucose = >500 and Ketones are positive, please alert the Physician. Ordering Provider: SLOANE ALANIS Report Released Date/Time: Apr 06, 2023 01:26 PM Reporting Lab: [facility] [address] [facility] [address] Performing Lab: [address] [address] [place] URINALYS IS NITRITE [PRESENCE] IN URINE NEGATIVE mg/dL 04/05 Specimen Type: URINE Comment: If Glucose = >500 and Ketones are positive, please alert the Physician. Ordering Provider: SLOANE ALANIS Report Released Date/Time: Apr 06, 2023 01:26 PM Reporting Lab: [address] [address] Performing Lab: [address] [address] [place] URINALYS IS BILIRUBIN. TOTAL [PRESENCE] IN URINE NEGATIVE mg/dL 04/05 Specimen Type: URINE Comment: If Glucose = >500 and Ketones are positive, please alert the Physician. Ordering Provider: SLOANE ALANIS Report Released Date/Time: Apr 06, 2023 01:26 PM Reporting Lab: [address] [address] Performing Lab: [address] [address] [place] URINALYS IS SPECIFIC GRAVITY OF URINE BY REFRACTOME TRY 1.030 1.016 - 1.022 04/05 H Specimen Type: URINE Comment: If Glucose = >500 and Ketones are positive, please alert the Physician. Ordering Provider: SLOANE ALANIS Report Released Date/Time: Apr 06, 2023 01:26 PM Reporting Lab: [address] [address] Performing Lab: [place] [address] [place] URINALYS IS PH OF URINE BY TEST STRIP 5.5 5.0 - 9.0 04/05 Specimen Type: URINE Comment: If Glucose = >500 and Ketones are positive, please alert the Physician. Ordering Provider: SLOANE ALANIS Report Released Date/Time: Apr 06, 2023 01:26 PM Reporting Lab: [address] [address] Performing Lab: [address] [address] [place] URINALYS IS UROBILINOG EN [MASS/VOLU ME] IN URINE BY TEST STRIP Normalmg /dL <2.0 - 2.0 04/05 Specimen Type: URINE Comment: If Glucose = >500 and Ketones are positive, please alert the Physician. Ordering Provider: SLOANE ALANIS Report Released Date/Time: Apr 06, 2023 01:26 PM Reporting Lab: [address] [address] Performing Lab: [facility] [address] [facility] [address] [place] [employer] URINALYS IS LEUKOCYTE ESTERASE [PRESENCE] IN URINE BY TEST STRIP NEGATIVE 04/05 Specimen Type: URINE Comment: If Glucose = >500 and Ketones are positive, please alert the Physician. Ordering Provider: SLOANE ALANIS Report Released Date/Time: Apr 06, 2023 01:26 PM Reporting Lab: [address] [address] Performing Lab: [address] [address] [place] BASIC METABOLI C PANEL (fasting ) UREA NITROGEN [MASS/VOLU ME] IN SERUM OR PLASMA 33 mg/dL 7 - 25 04/05 H Specimen Type: SERUM No comment entered. Ordering Provider: SLOANE ALANIS Report Released Date/Time: Apr 06, 2023 01:26 PM Reporting Lab: [address] [address] Performing Lab: [address] [address] [place] BASIC METABOLI C PANEL (fasting ) GLUCOSE [MASS/VOLU ME] IN SERUM OR PLASMA 147 mg/dL 65 - 100 04/05 H Specimen Type: SERUM No comment entered. Ordering Provider: SLOANE ALANIS Report Released Date/Time: Apr 06, 2023 01:26 PM Reporting Lab: [address] [address] Performing Lab: [address] [address] [place] BASIC METABOLI C PANEL (fasting ) SODIUM [MOLES/VOL UME] IN SERUM OR PLASMA 140 mmol/L 135 - 145 04/05 Specimen Type: SERUM No comment entered. Ordering Provider: SLOANE ALANIS Report Released Date/Time: Apr 06, 2023 01:26 PM Reporting Lab: [facility] [place] [facility] [address] [facility] [address] Performing Lab: [facility] [address] [facility] [address] [place] BASIC METABOLI C PANEL (fasting ) POTASSIUM [MOLES/VOL UME] IN SERUM OR PLASMA 4.5 mmol/L 3.5 - 5.0 04/05 Specimen Type: SERUM No comment entered. Ordering Provider: SLOANE ALANIS Report Released Date/Time: Apr 06, 2023 01:26 PM Reporting Lab: [facility] [address] [facility] [address] Performing Lab: [facility] [address] [place] BASIC METABOLI C PANEL (fasting ) CHLORIDE [MOLES/VOL UME] IN SERUM OR PLASMA 108 mmol/L 100 - 110 04/05 Specimen Type: SERUM No comment entered. Ordering Provider: SLOANE ALANIS Report Released Date/Time: Apr 06, 2023 01:26 PM Reporting Lab: [facility] [address] [facility] [address] Performing Lab: [facility]ENTER[facility]ETS [address] [address] [place] BASIC METABOLI C PANEL (fasting ) CARBON DIOXIDE, TOTAL [MOLES/VOL UME] IN SERUM OR PLASMA 23 meq/L 20 - 30 04/05 Specimen Type: SERUM No comment entered. Ordering Provider: SLOANE ALANIS Report Released Date/Time: Apr 06, 2023 01:26 PM Reporting Lab: [facility] [address] [facility] [address] Performing Lab: [facility]ENTER[facility] [address] [address] [place] BASIC METABOLI C PANEL (fasting ) CREATININE [MASS/VOLU ME] IN SERUM OR PLASMA 1.32 mg/dL 0.50 - 1.40 04/05 Specimen Type: SERUM No comment entered. Ordering Provider: SLOANE ALANIS Report Released Date/Time: Apr 06, 2023 01:26 PM Reporting Lab: [facility] [place] [facility] [address] [facility] [address] Performing Lab: [facility] [address] [address] [place] BASIC METABOLI C PANEL (fasting ) GLOMERULAR FILTRATION RATE/1.73 SQ M.PREDICTE D [VOLUME RATE/AREA] IN SERUM, PLASMA OR BLOOD BY CREATININE -BASED FORMULA (CKD-EPI 2020) 59 mL/min 60 04/05 L Specimen Type: SERUM No comment entered. Ordering Provider: SLOANE ALANIS Report Released Date/Time: Apr 06, 2023 01:26 PM Reporting Lab: [facility] [address] Performing Lab: [facility] [address] [place] FERRITIN FERRITIN [MASS/VOLU ME] IN SERUM OR PLASMA 25 ng/mL 20 - 300 04/05 Specimen Type: SERUM No comment entered. Ordering Provider: SLOANE ALANIS Report Released Date/Time: Apr 06, 2023 01:26 PM Reporting Lab: [facility] [address] Performing Lab: [facility]N [facility]ENTERUSETS [address] [address] [place] IRON & TIBC PANEL IRON BINDING CAPACITY [MASS/VOLU ME] IN SERUM OR PLASMA 350 ug/dL 204 - 475 04/05 Specimen Type: SERUM No comment entered. Ordering Provider: SLOANE ALANIS Report Released Date/Time: Apr 06, 2023 01:26 PM Reporting Lab: [facility]N [facility] [address] Performing Lab: [facility]N [facility] [address] [place] IRON & TIBC PANEL IRON [MASS/VOLU ME] IN SERUM OR PLASMA 63 ug/dL 40 - 160 04/05 Specimen Type: SERUM No comment entered. Ordering Provider: SLOANE ALANIS Report Released Date/Time: Apr 06, 2023 01:26 PM Reporting Lab: [facility] [address] Performing Lab: [facility]ENTER[facility]ETS [address] [address] [place] IRON & TIBC PANEL IRON/IRON BINDING CAPACITY.T OTAL [MASS RATIO] IN SERUM OR PLASMA 18.0 20.0 - 50.0 04/05 L Specimen Type: SERUM No comment entered. Ordering Provider: SLOANE ALANIS Report Released Date/Time: Apr 06, 2023 01:26 PM Reporting Lab: [facility]ENTER[facility] [address] Performing Lab: [facility] [address] [place] IRON & TIBC PANEL TRANSFERRI N [MASS/VOLU ME] IN SERUM OR PLASMA 265 mg/dL 200 - 360 04/05 Specimen Type: SERUM No comment entered. Ordering Provider: SLOANE ALANIS Report Released Date/Time: Apr 06, 2023 01:26 PM Reporting Lab: [facility] [address] Performing Lab: [facility]ENTER[facility] [address] [place] LIPID PANEL FASTING CHOLESTERO L [MASS/VOLU ME] IN SERUM OR PLASMA 134 mg/dL 04/05 Specimen Type: SERUM No comment entered. Ordering Provider: SLOANE ALANIS Report Released Date/Time: Apr 06, 2023 01:26 PM Reporting Lab: [facility] [address] Performing Lab: [facility] [address] [facility] [address] [place] LIPID PANEL FASTING TRIGLYCERI DE [MASS/VOLU ME] IN SERUM OR PLASMA 70 mg/dL 0 - 150 04/05 Specimen Type: SERUM No comment entered. Ordering Provider: SLOANE ALANIS Report Released Date/Time: Apr 06, 2023 01:26 PM Reporting Lab: [address] [address] Performing Lab: [address] [address] [place] LIPID PANEL FASTING CHOLESTERO L IN LDL [MASS/VOLU ME] IN SERUM OR PLASMA BY CALCULASTEPH N 82 mg/dL 0 - 129 04/05 Specimen Type: SERUM No comment entered. Ordering Provider: SLOANE ALANIS Report Released Date/Time: Apr 06, 2023 01:26 PM Reporting Lab: [address] [address] Performing Lab: [address] [address] [place] LIPID PANEL FASTING CHOLESTERO L.TOTAL/CH OLESTEROL IN HDL [MASS RATIO] IN SERUM OR PLASMA 3.5 04/05 Specimen Type: SERUM No comment entered. Ordering Provider: SLOANE ALANIS Report Released Date/Time: Apr 06, 2023 01:26 PM Reporting Lab: [address] [address] Performing Lab: [address] [address] [place] LIPID PANEL FASTING CHOLESTERO L IN HDL [MASS/VOLU ME] IN SERUM OR PLASMA 38 mg/dL 40 - 60 04/05 L Specimen Type: SERUM No comment entered. Ordering Provider: SLOANE ALANIS Report Released Date/Time: Apr 06, 2023 01:26 PM Reporting Lab: [facility] [place] [facility] [address] [facility] [address] Performing Lab: [facility] [address] [facility] [address] [facility] LIVER FUNCTION PROTEIN [MASS/VOLU ME] IN SERUM OR PLASMA 6.4 g/dL 6.0 - 8.3 04/05 Specimen Type: SERUM No comment entered. Ordering Provider: SLOANE ALANIS Report Released Date/Time: Apr 06, 2023 01:26 PM Reporting Lab: [facility] [address] [facility] [address] Performing Lab: [facility]ENTERUSE[address] [address] [facility] LIVER FUNCTION ALBUMIN [MASS/VOLU ME] IN SERUM OR PLASMA 4.0 g/dL 3.5 - 5.0 04/05 Specimen Type: SERUM No comment entered. Ordering Provider: SLOANE ALANIS Report Released Date/Time: Apr 06, 2023 01:26 PM Reporting Lab: [facility]ENTERUSETS [address] [address] Performing Lab: [facility]ENTER[facility] [address] [address] [facility] LIVER FUNCTION ALKALINE PHOSPHATAS E [ENZYMATIC ACTIVITY/V OLUME] IN SERUM OR PLASMA 60 U/L 40 - 150 04/05 Specimen Type: SERUM No comment entered. Ordering Provider: SLOANE ALANIS Report Released Date/Time: Apr 06, 2023 01:26 PM Reporting Lab: [facility]ENTER[facility] [address] [address] Performing Lab: [facility]ENTER[facility] [address] [address] [facility] LIVER FUNCTION ASPARTATE AMINOTRANS FERASE [ENZYMATIC ACTIVITY/V OLUME] IN SERUM OR PLASMA 23 U/L 5 - 34 04/05 Specimen Type: SERUM No comment entered. Ordering Provider: NADSLOANE VILLEGAS Report Released Date/Time: Apr 06, 2023 01:26 PM Reporting Lab: [facility] EASTN [address] [address] Performing Lab: [facility] EASTN [address] [address] [place] LIVER FUNCTION ALANINE AMINOTRANS FERASE [ENZYMATIC ACTIVITY/V OLUME] IN SERUM OR PLASMA 23 U/L 04/05 Specimen Type: SERUM No comment entered. Ordering Provider: SLOANE ALANIS Report Released Date/Time: Apr 06, 2023 01:26 PM Reporting Lab: [address] [address] Performing Lab: [facility] [address] [address] [place] LIVER FUNCTION BILIRUBIN. TOTAL [MASS/VOLU ME] IN SERUM OR PLASMA 0.5 mg/dL 0.2 - 1.2 04/05 Specimen Type: SERUM No comment entered. Ordering Provider: SLOANE ALANIS Report Released Date/Time: Apr 06, 2023 01:26 PM Reporting Lab: [facility] [address] [address] Performing Lab: [facility] [address] [address] [place] PSA PROSTATE SPECIFIC AG [MASS/VOLU ME] IN SERUM OR PLASMA 1.91 ng/mL 0.00 - 4.00 04/05 Specimen Type: SERUM No comment entered. Ordering Provider: SLOANE ALANIS Report Released Date/Time: Apr 06, 2023 01:26 PM Reporting Lab: [facility] [address] [address] Performing [facility]: [facility] [address] [address] [place] TSH THYROTROPI N [UNITS/VOL UME] IN SERUM OR PLASMA 2.71 u[IU]/mL 0.35 - 5.00 04/05 Specimen Type: SERUM No comment entered. Ordering Provider: SLOANE ALANIS Report Released Date/Time: Apr 06, 2023 01:26 PM Reporting Lab: [facility] [address] [facility] [address] Performing Lab: [address] [address] [facility] VITAMIN D (25-OH) 25-HYDROXY VITAMIN D3 [MASS/VOLU ME] IN SERUM OR PLASMA 31 ng/mL 20 - 50 04/05 Specimen Type: SERUM No comment entered. Ordering Provider: SLONAE ALANIS Report Released Date/Time: Apr 06, 2023 01:26 PM Reporting Lab: [address] [address] Performing Lab: [address] [address] [facility] Vital Signs Combined list of inpatient and outpatient Vital Signs from Department of Defense and Veterans Affairs, ranging from 12 months to all on record, depending upon the facility. Vital Sign Value Date Comments Source SYSTOLIC BLOOD PRESSURE 135 04/06/2024 11:38:32 [place] DIASTOLIC BLOOD PRESSURE 80 04/06/2024 11:38:32 [place] PULSE OXIMETRY 98 04/06/2024 11:38:32 [facility] WEIGHT 197 04/06/2024 11:38:32 [facility] BMI 27kg/m2 04/06/2024 11:38:32 [place] TEMPERATURE 97.6 04/06/2024 11:38:32 [facility] PULSE 76 04/06/2024 11:38:32 [place] RESPIRATION 18 04/06/2024 11:38:32 [place] WEIGHT 194 07/06/2023 11:05:48 [place] BMI 26kg/m2 07/06/2023 11:05:48 [facility] Encounters Combined list of: 1) Encounters from Department of Veterans Affairs facilities going back up to thelast 18 months. 2) Encounters from the Department of Defense facilities going back up to 280 months. Location Location Details Encounter Type Encounter Number Reason For Visit Attending Provider ADM Date DC Date Status Disposition Source [facility] Outpatient Encounter [id number] 01/17 [facility] Out[facility] Encounter [id number] 01/26 [facility] Outpatient Encounter [id number] 01/26 [facility] Out[facility] Encounter [id number] 01/28 [facility] Out[facility] Encounter [id number] 01/28 [facility] Out[facility] Encounter [id number] 02/12 [facility] Out[facility] Encounter [id number] 04/01 [facility] Out[facility]counter [id number] 04/06 [facility] IMMUNIZATI ON ADMIN EACH ADD [id number] PRO SORTO 04/06 [facility] [place] OFF[place] O/P NEW MOD 45-59 MIN [id number] Diagnos is: ICD-10- CM I10 Essenti al (primar y) hyperte nsion<b r/> SUNDAY URBAN,OG IVAN M 04/06 [place] [facility] Outpatient Encounter [id number] 04/06 [facility] Out[facility] Encounter [id number] 04/07 [facility] Out[facility] Encounter [id number] 04/07 [facility] Out[facility] Encounter [id number] 04/13 [facility] Out[facility] Encounter [id number] 04/20 [facility] EYE EXAM NEW PATIENT [id number] Diagnos is: ICD-10- CM E11.9 Type 2 diabete s mellitu s without complic ations< br/> LOGAN MUNOZ 04/20 [facility] HEARING AID EXAM BOTH EARS [id number] Diagnos is: ICD-10- CM H90.3 Sensori neural hearing loss, bilater al
Luigi BONILLA RAVINDER E 04/21 [facility] FIT SPECTACLES MULTIFOCAL [id number] Diagnos is: ICD-10- CM Z46.0 Encount er for fit/adj st of spectac les and contact lenses< br/> THOM PARIKH 04/21 [facility] FIT SPECTACLES MULTIFOCAL [id number] Diagnos is: ICD-10- CM Z46.0 Encount er for fit/adj st of spectac les and contact lenses< br/> THOM PARIKH ILAN 04/21 [facility] CONFORMITY EVALUATION [id number] Diagnos is: ICD-10- CM Z46.1 Encount er for fitting and adjustm ent of hearing aid<br/ > LENIN ISIDRO L 05/15 [facility] Outpatient Encounter [id number] 1.06/13 [facility] REPAIR & ADJUST SPECTACLES [id number] Diagnos is: ICD-10- CM Z46.0 Encount er for fit/adj st of spectac les and contact lenses< br/> THOM PARIKH ILAN 06/15 [facility] Outpatient Encounter [id number] 1.06/16 [facility] [place]/OP EST NOVEMBER X REQ PHY/QHP [id number] Diagnos is: ICD-10- CM Z23 Encount er for immuniz ation<b r/> JOLEEN GATES 07/06 [place] [facility] Outpatient Encounter [id number] 1.10/16 [facility] Out[facility] Encounter [id number] [facility] HEARING AID FITTING/CH ECKING [id number] Diagnos is: ICD-10- CM Z46.1 Encount er for fitting and adjustm ent of hearing aid<br/ > Luigi BONILLA 10/25 [facility] Outpatient Encounter [id number] [facility] Outpatient Encounter [id number] [facility] Outpatient Encounter [id number] 11/26 [facility] Outpatient Encounter [id number] 12/30 [facility] Outpatient Encounter [id number] 02/09 [facility] Outpatient Encounter [id number] 02/10 [facility] Outpatient Encounter [id number] 02[facility]10 [facility] Outpatient Encounter [id number] 02/10 [facility] Outpatient Encounter [id number] 02/10 [facility] Out[facility] Encounter [id number] 03/22 [facility] Outpatient Encounter [id number] 04/06 [facility] OFFICE O/P EST MOD 30 MIN [id number] Diagnos is: ICD-10- CM E11.9 Type 2 diabete s mellitu s without complic ations< br/> BERNARD BONILLA 04/06 [place] 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 FIT SPECTACLES MULTIFOCAL [id number] 1. Diagnos is: ICD-10- CM Z46.0 Encount er for fit/adj st of spectac les and contact lenses< br/> TAMMYLOGAN LEIGHE 04/[address] [facility] Outpatient Encounter [id number] [facility] Outpatient Encounter [id number] 05/18 [facility] Social History Combined list of available smoking, tobacco, and other social history from Department of Defense and Veterans Affairs facilities. Social History Type Response Date Comment Sourc e Tobacco smoking status [facility] VA-TOBACCO NEVER USED 04/06/2024 [facility] D History of tobacco use VA-TOBACCO NEVER USED 04/06/[address] [facility] Advance Directives List of completed, amended, or rescinded Advance Directives on record at Department of Veterans Affairs facilities. An actual copy of the Directive is not included. Date Advance Directive Provider Source 04/06/2023 ADVANCE DIRECTIVE TRACEE KYLE
--- OUTSIDE RECORDS SUMMARY | 2024-06-29 15:37 | XMS_ITS | Encounter Summary ---
Author Name [facility] Organization [facility] Address [address] [place] [address] Care Team Providers Care Laboratory Secretary Name Role Phone ULICES MARIA Primary Care [...] PART A Oct 18, 2021 PART A [id number] [facility] [phone] SIMBA KIDD PATIENT MEDICARE (WNR) MEDICARE (M) PART B Oct 18, 2021 PART B [id number] [facility] SIMBA KIDD PATIENT FOR LIFE TFL* Oct 18, 2021 [id number] [facility] (WNR) TRICA RE(WN R) November 17, 2016 (WNR) [id number] SIMBA KIDDNE PATIENT Selected Encounter This section includes the information on record at [place] for the Encounter. Date/Time Encounter Type Encounter Description Reason Pro vider Source Feb 11, 2024 07:28 AM Outpatient Encounter PRIMARY CARE/MEDICINE IHE Encounter Template Text not used by [place] Plan of Treatment: Future Appointments (+ 6 months) and Future Tests (+/- 45 days) The Plan of Treatment section includes future care activities for the patient from all [place] treatmentfacilities. This section includes future appointments and future orders which are active, pending or scheduled. Future Appointments This section includes appointments that were scheduled to occur 6 months from the date of the Encounter, up to a maximum of 20 appointments. The data comes from all [place] treatment facilities. Appointment Date/Time Appointment Type Appointme nt Facility Name Apr 06, 2024 11:30 AM AMBULATORY - MEDICINE [facility] Apr 26, 2024 03:00 PM [facility] Social History: Smoking Status (Most current) and [...] took place. Date/Time Current Smoking Status Comment Facil ity Apr 06, 2023 10:22 AM [place]-TOBACCO NEVER USED [facility] Advance Directives: All historical and current Section Date Range: From patient's date of to the date document was created. This section includes ALL of a patient's completed or amended [place] Advance and Rescinded Directives. The entries below indicate that a directive exists for the patient, but an actual copy is not included with this document. The data comes from all [place] facilities. Date Advance Directives Provider Source Apr 06, 2023 ADVANCE DIRECTIVE TRACEE KYLE [facility] Encounter Notes: All associated encounter notes This section contains the clinical notes associated to the Encounter. Date/Time Encounter Note(s) Provider Source Feb 11, 2024 07:28 AM PRIMARY CARE SECUR E MESSAGING: LOCAL TITLE: PRIMARY CARE SECURE MESSAGING STANDARD TITLE: PRIMARY CARE SECURE MESSAGING DATE OF NOTE: FEB 11, 2024@07:28 ENTRY DATE: FEB 11, 2024@08:28:35 AUTHOR: BRYSON DOAN COSIGNER: URGENCY: STATUS: COMPLETED PRIMARY CARE SECURE MESSAGING Has ADDENDA ------Original Message ----- Sent: 02/10/2024 05:01 PM ET From: BENJAMIN KIDD To: CANDACE,[facility] Subject: General:Records for Last Year Attachments: 650753 W[facility] Lab Results.pdf (519.19 KB), 339622 [facility] Medications.pdf (272.32 KB), 306787 W[facility] Reports.pdf (506.92 KB) Records for Last Year /sammy FERNANDES Signed: 02/11/2024 08:28 02/11/2024 ADDENDUM STATUS: COMPLETED Manufacturing Technologist put attachments into Pact folder. /sammy FERNANDES Signed: 02/11/2024 08:29 BRYSON DOAN [facility]
--- OUTSIDE RECORDS SUMMARY | 2024-06-29 15:38 | XMS_ITS | Encounter Summary ---
Author Name [facility] [place] Organization [facility] [place] Address [address] [place] [address] Care Team Providers Care Email Marketing Assistant Name Role Phone ULICES MARIA Primary Care [...] PART A Oct 18, 2021 PART A [id number] [facility] [phone] SIMBA KIDD PATIENT MEDICARE (WNR) MEDICARE (M) PART B Oct 18, 2021 PART B [id number] [facility] SIMBA KIDD PATIENT FOR LIFE TFL* Oct 18, 2021 [id number] SIMBA KIDD PATIENT [facility] (WNR) TRICA RE(WN R) November 17, 2016 (WNR) [id number] [phone] [place]INGE,[place] PATIENT Selected Encounter This section includes the information on record at [place] for the Encounter. Date/Time Encounter Type Encounter Description Reason Pro vider Source Nov 06, 2023 12:00 AM Outpatient Encounter EVENT (HISTORICAL) IHE Encounter Template Text not used by [place] Plan of Treatment: Future Appointments (+ 6 months) and Future Tests (+/- 45 days) The Plan of Treatment section includes future care activities for the patient from all [place] treatmentfacilities. This section includes future appointments and future orders which are active, pending or scheduled. Future Appointments This section includes appointments that were scheduled to occur 6 months from the date of the Encounter, up to a maximum of 20 appointments. The data comes from all [place] treatment facilities. Appointment Date/Time Appointment Type Appointme nt Facility Name Apr 06, 2024 11:30 AM AMBULATORY - MEDICINE [facility] [place] Apr 26, 2024 03:00 PM [facility] Social History: Smoking Status (Most current) and [...] Facil ity Apr 06, 2023 10:22 AM [place]-TOBACCO NEVER USED [facility] Advance Directives: All historical and current Section Date Range: From patient's date of to the date document was created. This section includes ALL of a patient's completed or amended [place] Advance and Rescinded Directives. The entries below indicate that a directive exists for the patient, but an actual copy is not included with this document. The data comes from all [place] facilities. Date Advance Directives Provider Source Apr 06, 2023 ADVANCE DIRECTIVE TRACEE KYLE [facility] Encounter Notes: All associated encounter notes This section contains the clinical notes associated to the Encounter. Date/Time Encounter Note(s) Provider Source Nov 06, 2023 12:00 AM NONVA NOTE: LOCAL TITLE: NON-VA OUTPATIENT NOTES STANDARD TITLE: NONVA NOTE DATE OF NOTE: NOV 06, 2023 ENTRY DATE: FEB 27, 2024@06:31:41 AUTHOR: BOURDON,FIDEL EXP COSIGNER: URGENCY: STATUS: COMPLETED VistA Imaging - Scanned Document SCANNED DOCUMENT SIGNATURE NOT REQUIRED Electronically Filed: 02/27/2024 by: FIDEL FARLEY [facility] Nov 06, 2023 12:00 AM RADIOLOGY NONVA NO TE: LOCAL TITLE: NON-VA RADIOLOGY STANDARD TITLE: RADIOLOGY NONVA NOTE DATE OF NOTE: NOV 06, 2023 ENTRY DATE: FEB 27, 2024@06:34:55 AUTHOR: FIDEL WATKINS EXP ONELIAIGNER: URGENCY: STATUS: COMPLETED VistA Imaging - Scanned Document SCANNED DOCUMENT SIGNATURE NOT REQUIRED Electronically Filed: 02/27/2024 by: FIDEL FARLEY [facility]
--- OUTSIDE RECORDS SUMMARY | 2024-06-29 15:38 | XMS_ITS | Encounter Summary ---
Author Name [facility] [place] Address [address] [place] [address] Care Team Providers Care Medical Artist Name Role Phone ULICES MARIA Primary Care [...] PART A Oct 18, 2021 PART A [id number] [facility] SIMBA KIDD PATIENT MEDICARE (WNR) MEDICARE (M) PART B Oct 18, 2021 PART B [id number] [facility] SIMBA KIDD PATIENT FOR LIFE TFL* Oct 18, 2021 [id number] SIMBA KIDD PATIENT [facility] (WNR) TRICA RE(WN R) November 17, 2016 (WNR) [id number] SIMBA KIDDNE PATIENT Selected Encounter This section includes the information on record at [place] for the Encounter. Date/Time Encounter Type Encounter Description Reason Pro vider Source Feb 11, 2024 07:39 AM Outpatient Encounter PRIMARY CARE/MEDICINE IHE Encounter Template Text not used by [place] Plan of Treatment: Future Appointments (+ 6 months) and Future Tests (+/- 45 days) The Plan of Treatment section includes future care activities for the patient from all [place] treatmentfacilities. This section includes future appointments and future orders which are active, pending or scheduled. Future Appointments This section includes appointments that were scheduled to occur 6 months from the date of the Encounter, up to a maximum of 20 appointments. The data comes from all [place] treatment facilities. Appointment Date/Time Appointment Type Appointme nt Facility Name Apr 06, 2024 11:30 AM AMBULATORY - MEDICINE [place] Apr 26, 2024 03:00 PM [facility] [place] [facility] Social History: Smoking Status (Most current) [...] Facil ity Apr 06, 2023 10:22 AM [place]-TO[place] NEVER USED [facility] Advance Directives: All historical and current Section Date Range: From patient's date of to the date document was created. This section includes ALL of a patient's completed or amended [place] Advance and Rescinded Directives. The entries below indicate that a directive exists for the patient, but an actual copy is not included with this document. The data comes from all [place] facilities. Date Advance Directives Provider Source Apr 06, 2023 ADVANCE DIRECTIVE TRACEE KYLE [place] Encounter Notes: All associated encounter notes This section contains the clinical notes associated to the Encounter. Date/Time Encounter Note(s) Provider Source Feb 11, 2024 08:39 AM ADDENDUM: LOCAL TITLE: Addendum STANDARD TITLE: ADDENDUM DATE OF NOTE: FEB 11, 2024@08:39:46 ENTRY DATE: FEB 11, 2024@08:39:47 AUTHOR: ARPIN,BRYSON EXP COSIGNER: URGENCY: STATUS: COMPLETED CAT DRIVER PUT ATTACHMENTS INTO PACT FOLDER. /sammy FERNANDES Signed: 02/11/2024 08:40 Receipt Acknowledged By: 02/12/2024 10:54 /reggie/ TRACEE KYLE LPN LPN 02/13/2024 18:13 /reggie/ Apolonia Briceno RN Registered Nurse for JENNY DSOUZA --- Original Document --- 02/11/24 PRIMARY CARE SECURE MESSAGING: ------Original Message ----- Sent: 02/10/2024 04:52 PM ET From: BENJAMIN KIDD [place] To: CANDACE,[facility] Subject: General:Records for Last Year Attachments: [id number] WK Walk In Clinic Visit.pdf (877.10 KB), 508081 W[facility] Office Visit.pdf (1.38 MB), 609126 [facility] Knee XRay.pdf (316.07 KB), 432867 [facility] Primary Office Visit.pdf (937.29 KB) Records for Last year /sammy FERNANDES Signed: 02/11/2024 08:39 02/12/2024 ADDENDUM STATUS: COMPLETED ALL ITEMS SENT TO [facility] FOR SCANNING. /reggie/ TRACEE KYLE LPN LPN Signed: 02/12/2024 10:55 BRYSON DOAN [facility] [place] [facility] Feb 11, 2024 07:39 AM PRIMARY CARE SECUR E MESSAGING: LOCAL TITLE: PRIMARY CARE SECURE MESSAGING STANDARD TITLE: PRIMARY CARE SECURE MESSAGING DATE OF NOTE: FEB 11, 2024@07:39 ENTRY DATE: FEB 11, 2024@08:39:38 AUTHOR: BRYSON DOAN EXP COSIGNER: URGENCY: STATUS: COMPLETED PRIMARY CARE SECURE MESSAGING Has ADDENDA ------Original Message ----- Sent: 02/10/2024 04:52 PM ET From: BENJAMIN KIDD To: CANDACE,[facility] Subject: General:Records for Last Year Attachments: 044694 [facility] Walk In Clinic Visit.pdf (877.10 KB), 365102 [facility] Office Visit.pdf (1.38 MB), 062601 [facility] Knee XRay.pdf (316.07 KB), 799457 [facility] Primary Office Visit.pdf (937.29 KB) Records for Last year /sammy FERNANDES Signed: 02/11/2024 08:39 02/11/2024 ADDENDUM STATUS: COMPLETED CAT DRIVER PUT ATTACHMENTS INTO PACT FOLDER. /sammy FERNANDES Signed: 02/11/2024 08:40 Receipt Acknowledged By: 02/12/2024 10:54 /reggie/ TRACEE KYLE LPN LPN * AWAITING SIGNATURE * JENNY DSOUZA 02/12/2024 ADDENDUM STATUS: COMPLETED ALL ITEMS SENT TO [facility] FOR SCANNING. /sammy KYLE LPN LPN Signed: 02/12/2024 10:55 BRYSON DOAN [facility]
--- OUTSIDE RECORDS SUMMARY | 2024-06-29 15:38 | XMS_ITS | Encounter Summary ---
Author Name [facility] [place] [facility] [place] Address [address] [place] [address] Care Team Providers Care Personal Lines Advisor Name Role Phone ULICES MARIA Primary Care [...] PART A Oct 18, 2021 PART A [id number] [facility] SIMBA KIDD PATIENT MEDICARE (WNR) MEDICARE (M) PART B Oct 18, 2021 PART B [id number] [facility] SIMBA KIDD PATIENT FOR LIFE TFL* Oct 18, 2021 [id number] SIMBA KIDD PATIENT [facility] (WNR) TRICA RE(WN R) November 17, 2016 (WNR) [id number] [phone] [place]E,[place] PATIENT Selected Encounter This section includes the information on record at [place] for the Encounter. Date/Time Encounter Type Encounter Description Reason Pro vider Source Oct 19, 2023 12:00 AM Outpatient Encounter EVENT (HISTORICAL) IHE Encounter Template Text not used by [place] Plan of Treatment: Future Appointments (+ 6 months) and Future Tests (+/- 45 days) The Plan of Treatment section includes future care activities for the patient from all [place] treatmentfacilities. This section includes future appointments and future orders which are active, pending or scheduled. Future Appointments This section includes appointments that were scheduled to occur 6 months from the date of the Encounter, up to a maximum of 20 appointments. The data comes from all [place] treatment facilities. Appointment Date/Time Appointment Type Appointme nt Facility Name Oct 26, 2023 01:30 PM AMBULATORY - REHAB MEDICIN E [facility] Apr 06, 2024 11:30 AM [facility] Social History: Smoking Status (Most current) and Tobacco Use (All prior to encounter date) This section includes the most current, and the historical, smoking and tobacco- related health factors from the [facility] facility where the Encounter took place. Current Smoking Status This section includes the most current smoking, or tobacco-related health factor, from the [place] facility where the Encounter took place. Date/Time Current Smoking Status Comment Facil ity Apr 06, 2023 10:22 AM VA-TOBACCO NEVER USED [facility] Advance Directives: All historical and current Section Date Range: From patient's date of to the date document was created. This section includes ALL of a patient's completed or amended [place] Advance and Rescinded Directives. The entries below indicate that a directive exists for the patient, but an actual copy is not included with this document. The data comes from all [place] facilities. Date Advance Directives Provider Source Apr 06, 2023 ADVANCE DIRECTIVE TRACEE KYLE [place] Encounter Notes: All associated encounter notes This section contains the clinical notes associated to the Encounter. Date/Time Encounter Note(s) Provider Source Oct 19, 2023 12:00 AM NONVA NOTE: LOCAL TITLE: NON-VA OUTPATIENT NOTES STANDARD TITLE: NONVA NOTE DATE OF NOTE: OCT 19, 2023 ENTRY DATE: FEB 27, 2024@06:27:19 AUTHOR: BOURDON,FIDEL EXP COSIGNER: URGENCY: STATUS: COMPLETED VistA Imaging - Scanned Document SCANNED DOCUMENT SIGNATURE NOT REQUIRED Electronically Filed: 02/27/2024 by: FIDEL FARLEY [facility] Oct 19, 2023 12:00 AM RADIOLOGY NONVA NO TE: LOCAL TITLE: NON-VA RADIOLOGY STANDARD TITLE: RADIOLOGY NONVA NOTE DATE OF NOTE: OCT 19, 2023 ENTRY DATE: FEB 27, 2024@07:22:49 AUTHOR: ERIC PONCE [place] EXP COSIGNER: URGENCY: STATUS: COMPLETED VistA Imaging - Scanned Document SCANNED DOCUMENT SIGNATURE NOT REQUIRED Electronically Filed: 02/27/2024 by: ERIC PONCE HOME LENDING OFFICER ERIC PONCE [facility]
--- OUTSIDE RECORDS SUMMARY | 2024-06-29 15:38 | XMS_ITS | Encounter Summary ---
Author Name [facility] [place] Organization [place] Address [address] [place] [id number] Care Team Providers Care Bread Distributor Name Role Phone ULICES MARIA Primary Care [...] PART A Oct 18, 2021 PART A [id number] [facility] [phone] SIMBA KIDD PATIENT MEDICARE (WNR) MEDICARE (M) PART B Oct 18, 2021 PART B [id number] [facility] SIMBA KIDD PATIENT FOR LIFE TFL* Oct 18, 2021 [id number] SIMBA KIDD PATIENT [facility] (WNR) TRICA RE(WN R) November 17, 2016 (WNR) [id number] 39 [place] PATIENT Selected Encounter This section includes the information on record at [place] for the Encounter. Date/Time Encounter Type Encounter Description Reason Pro vider Source Feb 10, 2024 12:00 AM Outpatient Encounter EVENT (HISTORICAL) IHE Encounter Template Text not used by [place] Plan of Treatment: Future Appointments (+ 6 months) and Future Tests (+/- 45 days) The Plan of Treatment section includes future care activities for the patient from all [place] treatmentfacilities. This section includes future appointments and future orders which are active, pending or scheduled. Future Appointments This section includes appointments that were scheduled to occur 6 months from the date of the Encounter, up to a maximum of 20 appointments. The data comes from all [place] treatment facilities. Appointment Date/Time Appointment Type Appointme nt Facility Name Apr 06, 2024 11:30 AM AMBULATORY - MEDICINE [facility] Apr 26, 2024 03:00 PM [facility] [place] [facility] Social History: Smoking Status (Most [...] Facil ity Apr 06, 2023 10:22 AM [place]-TOBACCO NEVER USED [facility] Advance Directives: All historical and current Section Date Range: From patient's date of to the date document was created. This section includes ALL of a patient's completed or amended [place] Advance and Rescinded Directives. The entries below indicate that a directive exists for the patient, but an actual copy is not included with this document. The data comes from all [place] facilities. Date Advance Directives Provider Source Apr 06, 2023 ADVANCE DIRECTIVE TRACEE KYLE [facility] Encounter Notes: All associated encounter notes This section contains the clinical notes associated to the Encounter. Date/Time Encounter Note(s) Provider Source Feb 10, 2024 12:00 AM NONVA NOTE: LOCAL TITLE: NON-VA OUTPATIENT NOTES STANDARD TITLE: NONVA NOTE DATE OF NOTE: FEB 10, 2024 ENTRY DATE: FEB 27, 2024@06:23:41 AUTHOR: BOURDON,FIDEL EXP COSIGNER: URGENCY: STATUS: COMPLETED VistA Imaging - Scanned Document SCANNED DOCUMENT SIGNATURE NOT REQUIRED Electronically Filed: 02/27/2024 by: FIDEL F[facility]LEY [facility] Feb 10, 2024 12:00 AM NONVA NOTE: LOCAL TITLE: NON-VA OUTPATIENT NOTES STANDARD TITLE: NONVA NOTE DATE OF NOTE: FEB 10, 2024 ENTRY DATE: FEB 27, 2024@06:56:54 AUTHOR: FIDEL WATKINS EXP COSIGNER: URGENCY: STATUS: COMPLETED VistA Imaging - Scanned Document SCANNED DOCUMENT SIGNATURE NOT REQUIRED Electronically Filed: 02/27/2024 by: FIDEL FARLEY [facility] Feb 10, 2024 12:00 AM NONVA NOTE: LOCAL TITLE: NON-VA OUTPATIENT NOTES STANDARD TITLE: NONVA NOTE DATE OF NOTE: FEB 10, 2024 ENTRY DATE: FEB 27, 2024@07:03:49 AUTHOR: FIDEL WATKINS EXP COSIGNER: URGENCY: STATUS: COMPLETED VistA Imaging - Scanned Document SCANNED DOCUMENT SIGNATURE NOT REQUIRED Electronically Filed: 02/27/2024 by: FIDEL FARLEY [facility]
--- OUTSIDE RECORDS SUMMARY | 2024-06-29 15:38 | XMS_ITS | Encounter Summary ---
Author Name [facility] Organization [facility] Address [address] [place] [address] Care Team Providers Care Professor Of Violin Name Role Phone ULICES MARIA Primary Care [...] PART A Oct 18, 2021 PART A [id number] [facility] SIMBA KIDD PATIENT MEDICARE (WNR) MEDICARE (M) PART B Oct 18, 2021 PART B [id number] [facility] SIMBA KIDD PATIENT FOR LIFE TFL* Oct 18, 2021 [id number] SIMBA KIDD PATIENT [facility] (WNR) TRICA RE(WN R) November 17, 2016 (WNR) [id number] SIMBA KIDDNE PATIENT Selected Encounter This section includes the information on record at [place] for the Encounter. Date/Time Encounter Type Encounter Description Reason Pro vider Source Feb 11, 2024 07:35 AM Outpatient Encounter PRIMARY CARE/MEDICINE IHE Encounter Template Text not used by [place] Plan of Treatment: Future Appointments (+ 6 [...] 26, 2024 03:00 PM [facility] [place] [facility] Social History: Smoking Status (Most current) [...] Facil ity Apr 06, 2023 10:22 AM [place]-TOBACCO NEVER USED [facility] Advance Directives: All historical and current Section Date Range: From patient's date of to the date document was created. This section includes ALL of a patient's completed or amended [place] Advance and Rescinded Directives. The entries below [...] Encounter Note(s) Provider Source Feb 11, 2024 08:36 AM ADDENDUM: LOCAL TITLE: Addendum STANDARD TITLE: ADDENDUM DATE OF NOTE: FEB 11, 2024@08:36:08 ENTRY DATE: FEB 11, 2024@08:36:09 AUTHOR: ARPIN,BRYSON EXP COSIGNER: URGENCY: STATUS: COMPLETED RETAIL AGENT PUT ATTACHMENTS INTO PACT FOLDER /sammy FERNANDES Signed: 02/11/2024 08:36 Receipt Acknowledged By: 02/12/2024 10:54 /es/ TRACEE KYLE LPN LPN 02/13/2024 18:12 /es/ Apolonia Briceno RN Registered Nurse for JENNY DSOUZA --- Original Document --- 02/11/24 PRIMARY CARE SECURE MESSAGING: ------Original Message ----- Sent: 02/10/2024 04:54 PM ET From: BENJAMIN KIDD LEXUS To: CANDACE,O_[facility] Subject: General:Records for Last Year Attachments: [id number] WK Knee XRay.pdf (314.02 KB), 425578 WK Orthopedic Visit.pdf (840.84 KB), 488091 WK Orthopedic Visit.pdf (561.09 KB), 535887 WK Nerve Conduction Study.pdf (509.47 KB) Records for Last Year /reggie/ BRYSON FERNANDES Signed: 02/11/2024 08:35 BRYSON DOAN [place] [facility] [place] [facility] Feb 11, 2024 07:35 AM PRIMARY CARE SECUR E MESSAGING: LOCAL TITLE: PRIMARY CARE SECURE MESSAGING STANDARD TITLE: PRIMARY CARE SECURE MESSAGING DATE OF NOTE: FEB 11, 2024@07:35 ENTRY DATE: FEB 11, 2024@08:35:49 AUTHOR: BRYSON DOAN COSIGNER: URGENCY: STATUS: COMPLETED PRIMARY CARE SECURE MESSAGING Has ADDENDA ------Original Message ----- Sent: 02/10/2024 04:54 PM ET From: BENJAMIN KIDD LEXUS To: Claudia MARIA_[facility] Subject: General:Records for Last Year Attachments: [id number] WK Knee XRay.pdf (314.02 KB), 528622 WK Orthopedic Visit.pdf (840.84 KB), 266344 WK Orthopedic Visit.pdf (561.09 KB), 155274 WK Nerve Conduction Study.pdf (509.47 KB) Records for Last Year /sammy FERNANDES Signed: 02/11/2024 08:35 02/11/2024 ADDENDUM STATUS: COMPLETED RETAIL AGENT PUT ATTACHMENTS INTO PACT FOLDER /sammy FERNANDES Signed: 02/11/2024 08:36 Receipt Acknowledged By: * AWAITING SIGNATURE * TRACEE KYLE * AWAITING SIGNATURE * JENNY DSOUZA [facility]
--- OUTSIDE RECORDS SUMMARY | 2024-06-29 15:38 | XMS_ITS | Encounter Summary ---
Author Name [facility] [place] [place] Organization [facility] [place] Address [address] [place] [address] Care Team Providers Care Mannequin Coloring Artist Name Role Phone ULICES MARIA Primary [...] PART A Oct 18, 2021 PART A [id number] [facility] [phone] 2 SIMBA KIDD PATIENT MEDICARE (WNR) MEDICARE (M) PART B Oct 18, 2021 PART B [id number] [facility] [phone] 2 SIMBA KIDD PATIENT FOR LIFE TFL* Oct 18, 2021 [id number] SIMBA KIDD PATIENT [facility] (WNR) TRICA RE(WN R) November 17, 2016 (WNR) [id number] 39 [place] PATIENT Selected Encounter This section includes the information on record at [place] for the Encounter. Date/Time Encounter Type Encounter Description Reason Pro vider Source November 27, 2023 12:00 AM Outpatient Encounter EVENT (HISTORICAL) IHE Encounter Template Text not used by [place] Plan of Treatment: Future Appointments (+ 6 months) and Future Tests (+/- 45 days) The Plan of Treatment section includes future care activities for the patient from all [place] treatmentfacilities. This section includes future appointments and future orders which are active, pending or scheduled. Future Appointments This section includes appointments that were scheduled to occur 6 months from the date of the Encounter, up to a maximum of 20 appointments. The data comes from all [place] treatment facilities. Appointment Date/Time Appointment Type Appointme nt Facility Name Apr 06, 2024 11:30 AM AMBULATORY - MEDICINE [facility] [place] Apr 26, 2024 03:00 PM [facility] [place] [facility] Social History: Smoking Status (Most current) and [...] Facil ity Apr 06, 2023 10:22 AM [place]-TOBACCO NEVER USED [facility] Advance Directives: All historical and current Section Date Range: From patient's date of to the date document was created. This section includes ALL of a patient's completed or amended [place] Advance and Rescinded Directives. The entries below indicate that a directive exists for the patient, but an actual copy is not included with this document. The data comes from all [place] facilities. Date Advance Directives Provider Source Apr 06, 2023 ADVANCE DIRECTIVE TRACEE KYEL [facility] Encounter Notes: All associated encounter notes This section contains the clinical notes associated to the Encounter. Date/Time Encounter Note(s) Provider Source November 27, 2023 12:00 AM RADIOLOGY NONVA NO TE: LOCAL TITLE: NON-VA RADIOLOGY STANDARD TITLE: RADIOLOGY NONVA NOTE DATE OF NOTE: NOVEMBER 27, 2023 ENTRY DATE: FEB 27, 2024@06:19:59 AUTHOR: BOURDON,FIDEL EXP COSIGNER: URGENCY: STATUS: COMPLETED VistA Imaging - Scanned Document SCANNED DOCUMENT SIGNATURE NOT REQUIRED Electronically Filed: 02/27/2024 by: FIDEL FARLEY [facility] [place] [facility] November 27, 2023 12:00 AM NONVA NOTE: LOCAL TITLE: NON-VA OUTPATIENT NOTES STANDARD TITLE: NONVA NOTE DATE OF NOTE: NOVEMBER 27, 2023 ENTRY DATE: FEB 27, 2024@06:42:20 AUTHOR: FIDEL WATKINS EXP ONELIAIGNER: URGENCY: STATUS: COMPLETED VistA Imaging - Scanned Document SCANNED DOCUMENT SIGNATURE NOT REQUIRED Electronically Filed: 02/27/2024 by: [facility]EL [facility]
--- OUTSIDE RECORDS SUMMARY | 2024-06-29 15:38 | XMS_ITS | Encounter Summary ---
Author Name [facility] Organization [facility] Address [address] [place] [address] Care Team Providers Care Interventional Cardiologist Name Role Phone ULICES MARIA Primary Care [...] Member ID Insurance Provider's Telephone Number Policy Hanye's Name Patient's Relationship to Policy Haney MEDICARE (WNR) MEDICARE (M) PART A Oct 18, [id number] [facility] [phone] 2 SIMBA KIDD PATIENT MEDICARE (WNR) MEDICARE (M) PART B Oct 18, [id number] [facility] SIMBA KIDD PATIENT FOR LIFE TFL* Oct 18, 2021 [id number] SIMBA KIDD PATIENT [facility] (WNR) TRICA RE(WN R) November 17, 2016 (WNR) [id number] [phone] SIMBA KIDDNE PATIENT Selected Encounter This section includes the information on record at [place] for the Encounter. Date/Time Encounter Type Encounter Description Reason Pro vider Source Feb 11, 2024 07:32 AM Outpatient Encounter PRIMARY CARE/MEDICINE IHE Encounter Template Text not used by [place] Plan of Treatment: Future Appointments (+ 6 months) and Future Tests (+/- 45 days) The Plan of Treatment section includes future care activities for the patient from all [place] treatmentfacilities. This section includes future appointments and future orders which are active, pending or scheduled. Future Appointments This section includes appointments that were scheduled to occur 6 months from the date of the Encounter, up to a maximum of 20 appointments. The data comes from all [place] treatment facilities. Appointment Date/Time Appointment Type Appointme nt Facility Name Apr 06, 2024 11:30 AM AMBULATORY - MEDICINE [facility] [place] Apr 26, 2024 03:00 PM [facility] Social History: Smoking Status (Most [...] Facil ity Apr 06, 2023 10:22 AM [place]-TOBACCO NEVER USED [facility] Advance Directives: All historical and current Section Date Range: From patient's date of to the date document was created. This section includes ALL of a patient's completed or amended [place] Advance and Rescinded Directives. The entries below indicate that a directive exists for the patient, but an actual copy is not included with this document. The data comes from all [place] facilities. Date Advance Directives Provider Source Apr 06, 2023 ADVANCE DIRECTIVE TRACEE KYLE [place] Encounter Notes: All associated encounter notes This section contains the clinical notes associated to the Encounter. 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 /reggie/ BRYSON FERNANDES Signed: 02/11/2024 08:32 Receipt Acknowledged By: 02/12/2024 10:54 /es/ TRACEE KYLE LPN LPN 02/13/2024 18:12 /es/ Apolonia Briceno RN Registered Nurse for JENNY DSOUZA --- Original Document --- 02/11/24 PRIMARY CARE SECURE MESSAGING: ------Original Message ----- Sent: 02/10/2024 04:56 PM ET From: BENJAMIN KIDD LEXUS To: CANDACE,[facility] Subject: General:Records for Last Year Attachments: [id number] WK Ultrasound.pdf (343.91 KB), 773113 WK Urology.pdf (1.01 MB), 206512 WK Allergies and Conditions.pdf (261.54 KB), 242545 WK Health Maint and Immun.pdf (324.34 KB) Records for Last Year /reggie/ BRYSON FERNANDES Signed: 02/11/2024 08:32 BRYSON DOAN [facility]L [facility] [place] [facility] Feb 11, 2024 07:32 AM PRIMARY CARE SECUR E MESSAGING: LOCAL TITLE: PRIMARY CARE SECURE MESSAGING STANDARD TITLE: PRIMARY CARE SECURE MESSAGING DATE OF NOTE: FEB 11, 2024@07:32 ENTRY DATE: FEB 11, 2024@08:32:11 AUTHOR: BRYSON DOAN EXP COSIGNER: URGENCY: STATUS: COMPLETED PRIMARY CARE SECURE MESSAGING Has ADDENDA ------Original Message ----- Sent: 02/10/2024 04:56 PM ET From: BENJAMIN KIDD LEXUS To: Claudia MARIA[facility] Subject: General:Records for Last Year Attachments: [id number] WK Ultrasound.pdf (343.91 KB), 695204 WK Urology.pdf (1.01 MB), 002430 WK Allergies and Conditions.pdf (261.54 KB), 104196 WK Health Maint and Immun.pdf (324.34 KB) Records for Last Year /sammy FERNANDES Signed: 02/11/2024 08:32 02/11/2024 ADDENDUM STATUS: COMPLETED ENTRY LEVEL ACCOUNTANT PUT ATTACHMENTS INTO PACT FOLDER. /sammy FERNANDES Signed: 02/11/2024 08:32 Receipt Acknowledged By: * AWAITING SIGNATURE * TRACEE KYLE * AWAITING SIGNATURE * JENNY DSOUZA [facility]
--- OUTSIDE RECORDS SUMMARY | 2024-06-29 15:39 | XMS_ITS | Encounter Summary ---
Author Name [facility] [place] [facility] [place] Organization [facility] [place] Address [address] [place] [address] Care Team Providers Care Metabolic Specialist Name Role Phone ULICES MARIA Primary Care [...] PART A Oct 18, 2021 PART A [id number] [facility] [phone] [id number] SIMBA KIDD PATIENT MEDICARE (WNR) MEDICARE (M) PART B Oct 18, 2021 PART B [id number] [facility] SIMBA KIDD PATIENT FOR LIFE TFL* Oct 18, 2021 [id number] [phone] SIMBA KIDD PATIENT [facility] (WNR) TRICA RE(WN R) November 17, 2016 (WNR) [id number] SIMBA KIDD PATIENT Selected Encounter This section includes the information on record at [place] for the Encounter. Date/Time Encounter Type Encounter Description Reason Pro vider Source IHE Encounter Template Text not used by [place] Advance Directives: All historical and current Section Date Range: From patient's date of to the date document was created. This section includes ALL of a patient's completed or amended [place] Advance and Rescinded Directives. The entries below indicate that a directive exists for the patient, but an actual copy is not included with this document. The data comes from all [place] facilities. Date Advance Directives Provider Source Apr 06, 2023 ADVANCE DIRECTIVE TRACEE KYLE
--- OUTSIDE RECORDS SUMMARY | 2024-06-29 15:39 | XMS_ITS | Encounter Summary ---
Author Name [facility] [place] Organization [facility] [place] Address [address] [place] [address] Care Team Providers Care Allied Health Teacher Name Role Phone ULICES MARIA Primary Care [...] PART A Oct 18, 2021 PART A [id number] [facility] SIMBA KIDD PATIENT MEDICARE (WNR) MEDICARE (M) PART B Oct 18, 2021 PART B [id number] [facility] SIMBA KIDD PATIENT FOR LIFE TFL* Oct 18, 2021 [id number] SIMBA KIDD PATIENT [facility] (WNR) TRICA RE(WN R) November 17, 2016 (WNR) [id number] [place] Y[place] PATIENT Selected Encounter This section includes the information on record at [place] for the Encounter. Date/Time Encounter Type Encounter Description Reason Pro vider Source Dec 31, 2023 12:00 AM Outpatient Encounter EVENT (HISTORICAL) [...] 03:00 PM [facility] [place] [facility] Social History: Smoking Status (Most current) [...] 06, 2023 10:22 AM [place]-TOBACCO NEVER USED [facility] Advance [...] Apr 06, 2023 ADVANCE DIRECTIVE TRACEE KYLE [facility] Encounter Notes: All associated encounter notes This section contains the clinical notes associated to the Encounter. Date/Time Encounter Note(s) Provider Source Dec 31, 2023 12:00 AM NONVA NOTE: LOCAL TITLE: NON-VA OUTPATIENT NOTES STANDARD TITLE: NONVA NOTE DATE OF NOTE: DEC 31, 2023 ENTRY DATE: FEB 27, 2024@07:10:46 AUTHOR: BOURDON,FIDEL EXP COSIGNER: URGENCY: STATUS: COMPLETED VistA Imaging - Scanned Document SCANNED DOCUMENT SIGNATURE NOT REQUIRED Electronically Filed: 02/27/2024 by: FIDEL FARLEY CNT [facility] Dec 31, 2023 12:00 AM NONVA NOTE: LOCAL TITLE: NON-VA OUTPATIENT NOTES STANDARD TITLE: NONVA NOTE DATE OF NOTE: DEC 31, 2023 ENTRY DATE: FEB 27, 2024@07:14:08 AUTHOR: FIDEL WATKINS EXP COSIGNER: URGENCY: STATUS: COMPLETED VistA Imaging - Scanned Document SCANNED DOCUMENT SIGNATURE NOT REQUIRED Electronically Filed: 02/27/2024 by: FIDEL FARLEY CNT WSN [facility]
--- OUTSIDE RECORDS SUMMARY | 2024-06-29 15:39 | XMS_ITS | Encounter Summary ---
Author Name [facility] [place] [place] Organization [place] Address [address] [place] [address] Care Team Providers Care Musculoskeletal Physiotherapist Name Role Phone ULICES MARIA Primary Care [...] PART A Oct 18, 2021 PART A [id number] [facility] [phone] 2 SIMBA KIDD PATIENT MEDICARE (WNR) MEDICARE (M) PART B Oct 18, 2021 PART B [id number] [facility] SIMBA KIDD PATIENT FOR LIFE TFL* Oct 18, 2021 [id number] SIMBA KIDD PATIENT [facility] (WNR) TRICA RE(WN R) November 17, 2016 (WNR) [id number] 39 [place] PATIENT Selected Encounter This section includes the information on record at [place] for the Encounter. Date/Time Encounter Type Encounter Description Reason Pro vider Source Nov 09, 2023 12:00 AM Outpatient Encounter EVENT (HISTORICAL) IHE Encounter Template Text not used by [place] Plan of Treatment: Future Appointments (+ 6 months) and Future Tests (+/- 45 days) The Plan of Treatment section includes future care activities for the patient from all [place] treatmentfacilities. This section includes future appointments and future orders which are active, pending or scheduled. Future Appointments This section includes appointments that were scheduled to occur 6 months from the date of the Encounter, up to a maximum of 20 appointments. The data comes from all [place] treatment facilities. Appointment Date/Time Appointment Type Appointme nt Facility Name Apr 06, 2024 11:30 AM AMBULATORY - MEDICINE [facility] Apr 26, 2024 03:00 PM [facility] [place] [facility] Social History: Smoking Status (Most [...] Facil ity Apr 06, 2023 10:22 AM ID-TOBACCO NEVER USED [facility] Advance Directives: All historical and current Section Date Range: From patient's date of to the date document was created. This section includes ALL of a patient's completed or amended [place] Advance and Rescinded Directives. The entries below indicate that a directive exists for the patient, but an actual copy is not included with this document. The data comes from all [place] facilities. Date Advance Directives Provider Source Apr 06, 2023 ADVANCE DIRECTIVE TRACEE KYLE [facility] Encounter Notes: All associated encounter notes This section contains the clinical notes associated to the Encounter. Date/Time Encounter Note(s) Provider Source Nov 09, 2023 12:00 AM NONVA NOTE: LOCAL TITLE: NON-VA OUTPATIENT NOTES STANDARD TITLE: NONVA NOTE DATE OF NOTE: NOV 09, 2023 ENTRY DATE: FEB 27, 2024@06:37:16 AUTHOR: BOURDON,FIDEL EXP COSIGNER: URGENCY: STATUS: COMPLETED VistA Imaging - Scanned Document SCANNED DOCUMENT SIGNATURE NOT REQUIRED Electronically Filed: 02/27/2024 by: FIDEL FARLEY CNTRL [facility]
--- OUTSIDE RECORDS SUMMARY | 2024-06-29 15:39 | XMS_ITS | Encounter Summary ---
Author Name [facility] Organization [facility] Address [address] [place] [id number] Care Team Providers Care Transit Mix Operator Name Role Phone ULICES MARIA Primary Care [...] PART A Oct 18, 2021 PART A [id number] [facility] SIMBA KIDD PATIENT MEDICARE (WNR) MEDICARE (M) PART B Oct 18, 2021 PART B [id number] [facility] SIMBA KIDD PATIENT FOR LIFE TFL* Oct 18, 2021 [id number] SIMBA KIDD PATIENT [facility] (WNR) TRICA RE(WN R) November 17, 2016 (WNR) [id number] [place] PATIENT Selected Encounter This section includes the information on record at [place] for the Encounter. Date/Time Encounter Type Encounter Description Reason Pro vider Source Oct 17, 2023 12:00 AM Outpatient Encounter EVENT (HISTORICAL) IHE Encounter Template Text not used by [place] Plan of Treatment: Future Appointments (+ 6 months) and Future Tests (+/- 45 days) The Plan of Treatment section includes future care activities for the patient from all [place] treatmentfacilities. This section includes future appointments and future orders which are active, pending or scheduled. Future Appointments This section includes appointments that were scheduled to occur 6 months from the date of the Encounter, up to a maximum of 20 appointments. The data comes from all [place] treatment facilities. Appointment Date/Time Appointment Type Appointme nt Facility Name Oct 26, 2023 01:30 PM AMBULATORY - REHAB MEDICIN E [facility] Apr 06, 2024 11:30 AM [facility] Social History: Smoking Status (Most current) and Tobacco Use (All prior to encounter date) This section includes the most current, and the historical, smoking and tobacco- related health factors from the [facility] facility where the [facility]. Current Smoking Status This section includes the most current smoking, or tobacco-related health factor, from the [place] facility where the Encounter took place. Date/Time Current Smoking Status Comment Facil ity Apr 06, 2023 10:22 AM VA-TOBACCO NEVER USED [facility] Advance Directives: All historical and current Section Date Range: From patient's date of to the date document was created. This section includes ALL of a patient's completed or amended [place] Advance and Rescinded Directives. The entries below indicate that a directive exists for the patient, but an actual copy is not included with this document. The data comes from all [place] facilities. Date Advance Directives Provider Source Apr 06, 2023 ADVANCE DIRECTIVE TRACEE KYLE FIELD Encounter Notes: All associated encounter notes This section contains the clinical notes associated to the Encounter. Date/Time Encounter Note(s) Provider Source Oct 17, 2023 12:00 AM NONVA DIAGNOSTIC Luis A VARELA REPORT: LOCAL TITLE: NON-VA DIAGNOSTICS STANDARD TITLE: NONVA DIAGNOSTIC STUDY REPORT DATE OF NOTE: OCT 17, 2023 ENTRY DATE: FEB 27, 2024@07:08:02 AUTHOR: FIDEL WATKINS EXP COSIGNER: URGENCY: STATUS: COMPLETED VistA Imaging - Scanned Document SCANNED DOCUMENT SIGNATURE NOT REQUIRED Electronically Filed: 02/27/2024 by: FIDEL FARLEY CNTRL [facility]
--- OUTSIDE RECORDS SUMMARY | 2024-06-29 15:39 | XMS_ITS | Encounter Summary ---
Author Name [facility] [place] [facility] [place] [facility] [place] Address [address] [place] [id number] Care Team Providers Care Electromedical Equipment Technician Name Role Phone ULICES MARIA Primary Care [...] PART A Oct 18, 2021 PART A [id number] [facility] [phone] SIMBA KIDD PATIENT MEDICARE (WNR) MEDICARE (M) PART B Oct 18, 2021 PART B [id number] SIMBA KIDD PATIENT FOR LIFE TFL* Oct 18, 2021 [id number] SIMBA KIDD PATIENT [facility] (WNR) TRICA RE(WN R) November 17, 2016 (WNR) [id number] [place] PATIENT Selected Encounter This section includes the information on record at [place] for the Encounter. Date/Time Encounter Type Encounter Description Reason Provider Source Apr 06, 2024 11:30 AM OFFICE O/P EST MOD 30 MIN PRIMARY CARE/MEDICINE ICD-10-CM E11.9 Type 2 diabetes mellitus without complications RICK BONILLA Encounter Template Text not used by [place] Assessments - Encounter Diagnoses This section includes the primary and secondary diagnoses documented for the Encounter. Date/Time Primary/Secondary Diagnosis Diagnosis Name Provider Source Apr 06, 2024 11:45 AM PRIMARY Type 2 diabetes mellitus without complications RICK BONILLA Apr 06, 2024 11:45 AM SECONDARY Encounter for immunization RICK BONILLA [facility] Apr 06, 2024 11:45 AM SECONDARY Hyperlipidemia, unspecified RICK BONILLA [facility] Apr 06, 2024 11:45 AM SECONDARY Male erectile dysfunction, unspecified RICK BOINLLA Plan of Treatment: Future Appointments (+ 6 months) and Future Tests (+/- 45 days) The Plan of Treatment section includes future care activities for the patient from all [place] treatmentfacilities. This section includes future appointments and future orders which are active, pending or scheduled. Future Appointments This section includes appointments that were scheduled to occur 6 months from the date of the Encounter, up to a maximum of 20 appointments. The data comes from all [place] treatment facilities. Appointment Date/Time Appointment Type Appointme nt Facility Name Apr 26, 2024 03:00 PM AMBULATORY - MEDICINE [facility] Lab Results: +/- 30 days of the encounter This section includes the Chemistry and Hematology Lab Results on record with [place] for the patient. Radiology Reports and Pathology Reports are provided separately, in subsequent sections. Lab Results This section contains the Chemistry/Hematology Results that were resulted 30 days before or 30 daysafter the date of the Encounter. Date/Time Source Result Type Result - Unit Interpretation Reference Range Comment Apr 05, 2024 09:22 AM [facility] MICROALBUMIN CREATININE RATIO PANEL Spe cimen Type: URINE No comment entered. Ordering Provider: ULICES LUCAS Report Released Date/Time: Apr 06, 2023 01:26 PM Reporting Lab: [address] [address] Performing Lab: [address] [address] MICROALBUMIN/C REATININE RATIO 4.7 mg/g 0-29.9 MICROALBUMIN,Q UANTITATIVE 0.9 mg/dL RR UNAVAIL CREATININE URINE 190.74 mg/dL Apr 05, 2024 09:22 AM [facility] URINALYSIS Specimen Type: URINE Comment: If Glucose = >500 and Ketones are positive, please alert the Physician. Ordering Provider: ULICES LUCAS Report Released Date/Time: Apr 06, 2023 01:26 PM Reporting Lab: [address] [address] Performing Lab: [address] [address] UA COLOR Yellow Yellow UA APPEARANCE Clear Clear UA GLUCOSE Normal mg/dL Negative UA KETONES NEGATIVE mg/dL Negative UA BLOOD NEGATIVE mg/dL Negative UA PROTEIN 10 mg/dL Negative UA NITRITE NEGATIVE mg/dL Negative UA BILIRUBIN NEGATIVE mg/dL Negative UA SPECIFIC GRAVITY 1.030 H 1.016-1.022 UA pH 5.5 5.0-9.0 UA UROBILINOGEN Normal mg/dL <2.0 UA LEUKOCYTE NEGATIVE Negative Apr 05, 2024 09:12 AM [facility] TSH Specimen Type: SERUM No comment entered. Ordering Provider: ULICES LUCAS Report Released Date/Time: Apr 06, 2023 01:26 PM Reporting Lab: [address] [address] Performing Lab: [address] [address] TSH 2.71 u[IU]/mL 0.35-5.00 Apr 05, 2024 09:12 AM [facility] VITAMIN D (25-OH) Specimen Type: SERUM No comment entered. Ordering Provider: ULICES LUCAS Report Released Date/Time: Apr 06, 2023 01:26 PM Reporting Lab: [address] [address] Performing Lab: [address] [address] VITAMIN D (25-OH) 31 ng/mL 20-50 Apr 05, 2024 09:12 AM [facility] FERRITIN Specimen Type: SERUM No comment entered. Ordering Provider: ULICES LUCAS Report Released Date/Time: Apr 06, 2023 01:26 PM Reporting [facility]: [facility] [address] [address] Performing Lab: [facility] [address] FERRITIN 25 ng/mL 20-300 Apr 05, 2024 09:12 AM [facility] IRON & TIBC PANEL Specimen Type: SERUM No comment entered. Ordering Provider: ULICES LUCAS Report Released Date/Time: Apr 06, 2023 01:26 PM Reporting Lab: [facility] [address] [address] Performing Lab: [facility] [address] [address] TIBC 350 ug/dL 204-475 IRON 63 ug/dL 40-160 Transferrin Saturation 18.0 L 20.0-50.0 Transferrin (TRF) 265 mg/dL 200-360 Apr 05, 2024 09:12 AM [facility] PSA Specimen Type: SERUM No comment entered. Ordering Provider: ULICES LUCAS Report Released Date/Time: Apr 06, 2023 01:26 PM Reporting Lab: [facility] [address] Performing Lab: [facility]ITALUS[facility] [address] [address] PSA 1.91 ng/mL 0.00-4.00 Apr 05, 2024 09:12 AM [facility] BASIC METABOLIC PANEL (fasting) Specime n Type: SERUM No comment entered. Ordering Provider: ULICES LUCAS Report Released Date/Time: Apr 06, 2023 01:26 PM Reporting Lab: [facility] [address] Performing Lab: [facility] [address] UREA NITROGEN 33 mg/dL H 7-25 GLUCOSE 147 mg/dL H 65-100 SODIUM 140 mmol/L 135-145 POTASSIUM 4.5 mmol/L 3.5-5.0 CHLORIDE 108 mmol/L 100-110 CO2 23 meq/L 20-30 CREATININE, Serum 1.32 mg/dL 0.50-1.40 eGFR(CKD-EPI 2020) 59 mL/min L >60 Apr 05, 2024 09:12 AM [facility] LIPID PANEL FASTING Specimen Type: SERUM No comment entered. Ordering Provider: ULICES LUCAS Report Released Date/Time: Apr 06, 2023 01:26 PM Reporting Lab: [address] [address] Performing Lab: [address] [address] CHOLESTEROL 134 mg/dL TRIGLYCERIDE 70 mg/dL 0-150 LDL calculated 82 mg/dL 0-129 CHOL/HDL 3.5 HDL CHOLESTEROL 38 mg/dL L 40-60 Apr 05, 2024 09:12 AM [facility] LIVER FUNCTION Specimen Type: SERUM No comment entered. Ordering Provider: ULICES LUCAS Report Released Date/Time: Apr 06, 2023 01:26 PM Reporting Lab: [address] [address] Performing Lab: [address] [address] PROTEIN,TOTAL 6.4 g/dL 6.0-8.3 ALBUMIN 4.0 g/dL 3.5-5.0 ALKALINE PHOSPHATASE 60 U/L 40-150 AST 23 U/L 5-34 ALT 23 U/L BILIRUBIN, TOTAL 0.5 mg/dL 0.2-1.2 Apr 05, 2024 09:12 AM [facility] CBC AND DIFF (AUTO) Specimen Type: BLOOD No comment entered. Ordering Provider: ULICES LUCAS Report Released Date/Time: Apr 06, 2023 01:26 PM Reporting Lab: [address] [address] Performing Lab: [facility] [address] [facility] [address] WBC 6.99 10*3/uL 4.50-11.00 RBC 5.33 10*6/uL 4.23-5.66 HGB 14.7 g/dL 12.8-17 HCT 44.7 39.2-50.4 MCV 83.9 fL 82-99 MCHC 32.9 g/dL 30.8-35.1 PLT 294 10*3/uL 140-360 RDW-CV 14.6 12.0-16.0 MONO, ABS 0.46 10*3/uL 0.30-1.10 MCH 27.6 pg 26.2-32.6 NEUT % 59.8 43.7-75.8 LYMPH % 20.7 14.0-42.3 MONO % 6.6 5.1-13.7 EOS % 10.6 H 0.4-6.8 BASO % 1.7 0.1-2.0 NEUT, ABS 4.18 10*3/uL 2.20-7.60 LYMPH, ABS 1.45 10*3/uL 1.00-3.20 EOS, ABS 0.74 10*3/uL H 0.03-0.44 BASO, ABS 0.12 10*3/uL 0.01-0.13 IMMATURE GRAN % 0.6 0.0-0.7 IMMATURE GRAN, ABS 0.04 10*3/uL 0.00-0.06 NRBC % 0.0 0.0-0.0 NRBC, ABS 0.00 10*3/uL 0.00-0.00 Apr 05, 2024 09:12 AM [facility] HEMOGLOBIN A1C PANEL Specimen Type: BLOOD Comment: Values obtained from A1C measurements can vary. For atypical A1C assays, a reported value of 7.0 could actually be between 6.72 and 7.28 if measured by a reference method. A reported value of 9.0 could actually be between 8.73 and 9.27. Ref: http://www.ngs p.org/CAPdata. asp Ordering Provider: ULICES LUCAS Report Released Date/Time: Apr 06, 2023 01:26 PM Reporting Lab: [facility] [address] [facility] [address] Performing Lab: [facility] [address] [address] HEMOGLOBIN A1C 6.6 H 4.0-5.6 Vital Signs: All taken on the encounter date This section contains inpatient and outpatient Vital Signs collected on the date of the Encounter. Date/Time Temperature Pulse Blood Pressure Respiratory Rate SP02 Pain Height Weight Body Mass Index Source Apr 06, 2024 11:38 AM 97.6 76 135/80 18 98 197 27 KIT [facility] IELD Immunizations: All administered on the encounter date This section contains immunizations associated to the Encounter. Immunization Series Date Issued Reaction Comments INFLUENZA, HIGH-DOSE, TRIVALENT, PF Apr 06 Social History: Smoking Status (Most current) and Tobacco Use (All prior to encounter date) This section includes the most current, and the historical, smoking and tobacco- related health factors from the [place] facility where the Encounter took place. Current Smoking Status This section includes the most current smoking, or tobacco-related health factor, from the [place] facility where the Encounter took place. Date/Time Current Smoking Status Comment Ebony perez Apr 06, 2024 11:30 AM VA-TOBACCO NEVER USED [facility] Advance Directives: All historical and current Section Date Range: From patient's date of to the date document was created. This section includes ALL of a patient's completed or amended [place] Advance and Rescinded Directives. The entries below indicate that a directive exists for the patient, but an actual copy is not included with this document. The data comes from all [place] facilities. Date Advance Directives Provider Source Apr 06, 2023 ADVANCE DIRECTIVE TRACEE KYLE [facility] Encounter Notes: All associated encounter notes This section contains the clinical notes associated to the Encounter. Date/Time Encounter Note(s) Provider Source Apr 06, 2024 01:23 PM ADDENDUM: LOCAL TITLE: Addendum STANDARD TITLE: ADDENDUM DATE OF NOTE: APR 06, 2024@13:23:58 ENTRY DATE: APR 06, 2024@13:23:59 AUTHOR: HEIDI VERONICA EXP COSIGNER: URGENCY: STATUS: COMPLETED msa please request last Colonoscopy and pathology results from [facility] (Dr. Giang) for pact team 5 /reggie/ HEIDI VERONICA LPN LICENSED PRACTICAL NURSE Signed: 04/06/2024 13:53 Receipt Acknowledged By: 04/06/2024 13:57 /reggie/ MAGDI FERNANDES --- Original Document --- 04/06/24 CLINICAL REMINDERS/NURSING: Advance Directive Screen MH AD: Patient has an Advance Directive on file at this [facility]. No updates are needed at this time. The patient received education about Advance Directives and written notification of his/her rights. BMI>30/>24.99 High Risk: Patient declines to discuss weight management. Patient declined weight discussion. Discussed revisiting at a future visit. Influenza Immunization: Influenza, High-Dose, Trivalent, Preservative Free (Fluzone-Syringe) Administered: INFLUENZA, HIGH-DOSE, TRIVALENT, PF Date Administered: Apr 06, 2024 11:30 Welder Machine Operator: SANOFI PASTEUR Lot: [id number] Exp Date: Jan 16, 2025 [facility]: [phone] Admin Route/Site: INTRAMUSCULAR/LEFT DELTOID Dosage: 0.5mL Vaccine Information Statement(s): INFLUENZA(FLU) VACC(INACTIVATED OR RECOMBINANT)VIS Feb 22, 2021 ([place]) Order By: Policy Administered By: Heidi Veronica The Influenza Vaccine Information Statement (VIS) was reviewed with the patient/caregiver which lists the benefits and risks of the vaccine and the risks of not receiving the Influenza vaccine. The patient/caregiver denied any prior severe reaction to this vaccine or its components or a severe allergic reaction, such as anaphylaxis, to any vaccine or any injectable therapy. The patient/caregiver gave verbal consent to receive the vaccine. COVID-19 Immunization: Refused Moderna Monovalent COVID-19 vaccine Immunization: COVID-19 (MODERNA), MRNA, LNP-S, PF, 50 MCG/0.5 ML (AGES 12+ YEARS) Refusal Reason: PATIENT DECISION Patient refuses all immunization(s) in the COVID-19 group Date Documented: 04/06/24 11:42 Pneumococcal PPSV23 (Pneumovax): The patient declines to receive the recommended dose of PPSV23 vaccine. Immunization: PNEUMOCOCCAL POLYSACCHARIDE PPV23 Refusal Reason: PATIENT DECISION Patient refuses all immunization(s) in the PneumoPPV group Comment: I want 1 vaccine today only Date Documented: 04/06/24 11:43 RHS Screen: RHS Screen Environmental Check Upon inquiry, the individual reports that the environment is safe to proceed. Informed Consent to Screen and Document The individual consents to proceed with screening. The individual consents to documentation of responses. PRIMARY SCREEN: In the past 12 months, how often did a current or former intimate partner (e.g., boyfriend, girlfriend, , , sexual partner): 1. Scream or curse at you Never 2. Insult or talk down to you Never 3. Threaten you with harm Never 4. Physically hurt you Never 5. Force or pressure you to have sexual contact against your will, or when you were unable to say no Never ?? The HITS tool (items 1-4 above) is [place] copyright protected by Eyal Vora MD, and the user has full rights to use it throughout the [place] system. PRIMARY SCREEN RESULT: The Primary Screen is NEGATIVE. The individual answered never to all forms of IPV above (i.e., answered never to all 5 items) The individual accepts education and/or resources: No EDUCATION: Other: /reggie/ HEIDI VERONICA LPN LICENSED PRACTICAL NURSE Signed: 04/06/2024 11:44 HEIDI VERONICA [facility] Apr 06, 2024 11:37 AM PREVENTIVE MEDICIN E NURSING NOTE: LOCAL TITLE: CLINICAL REMINDERS/NURSING STANDARD TITLE: PREVENTIVE MEDICINE NURSING NOTE DATE OF NOTE: APR 06, 2024@11:37 ENTRY DATE: APR 06, 2024@11:37:45 AUTHOR: HEIDI VERONICA EXP COSIGNER: URGENCY: STATUS: COMPLETED CLINICAL REMINDERS/NURSING Has ADDENDA Advance Directive Screen MH AD: Patient has an Advance Directive on file at this [facility]. No updates are needed at this time. The patient received education about Advance Directives and written notification of his/her rights. BMI>30/>24.99 High Risk: Patient declines to discuss weight management. Patient declined weight discussion. Discussed revisiting at a future visit. Influenza Immunization: Influenza, High-Dose, Trivalent, Preservative Free (Fluzone-Syringe) Administered: INFLUENZA, HIGH-DOSE, TRIVALENT, PF Date Administered: Apr 06, 2024 11:30 Welder Machine Operator: SANSovi PASTEUR Lot: [id number] Exp Date: Jan 16, 2025 [facility]: [phone] Admin Route/Site: INTRAMUSCULAR/LEFT DELTOID Dosage: 0.5mL Vaccine Information Statement(s): INFLUENZA(FLU) VACC(INACTIVATED OR RECOMBINANT)VIS Feb 22, 2021 ([place]) Order By: Policy Administered By: Heidi Veronica The Influenza Vaccine Information Statement (VIS) was reviewed with the patient/caregiver which lists the benefits and risks of the vaccine and the risks of not receiving the Influenza vaccine. The patient/caregiver denied any prior severe reaction to this vaccine or its components or a severe allergic reaction, such as anaphylaxis, to any vaccine or any injectable therapy. The patient/caregiver gave verbal consent to receive the vaccine. COVID-19 Immunization: Refused Moderna Monovalent COVID-19 vaccine Immunization: COVID-19 (MODERNA), MRNA, LNP-S, PF, 50 MCG/0.5 ML (AGES 12+ YEARS) Refusal Reason: PATIENT DECISION Patient refuses all immunization(s) in the COVID-19 group Date Documented: 04/06/24 11:42 Pneumococcal PPSV23 (Pneumovax): The patient declines to receive the recommended dose of PPSV23 vaccine. Immunization: PNEUMOCOCCAL POLYSACCHARIDE PPV23 Refusal Reason: PATIENT DECISION Patient refuses all immunization(s) in the PneumoPPV group Comment: I want 1 vaccine today only Date Documented: 04/06/24 11:43 RHS Screen: RHS Screen Environmental Check Upon inquiry, the individual reports that the environment is safe to proceed. Informed Consent to Screen and Document The individual consents to proceed with screening. The individual consents to documentation of responses. PRIMARY SCREEN: In the past 12 months, how often did a current or former intimate partner (e.g., boyfriend, girlfriend, , , sexual partner): 1. Scream or curse at you Never 2. Insult or talk down to you Never 3. Threaten you with harm Never 4. Physically hurt you Never 5. Force or pressure you to have sexual contact against your will, or when you were unable to say no Never ?? The HITS tool (items 1-4 above) is [place] copyright protected by Eyal Vora MD, and the user has full rights to use it throughout the [place] system. PRIMARY SCREEN RESULT: The Primary Screen is NEGATIVE. The individual answered never to all forms of IPV above (i.e., answered never to all 5 items) The individual accepts education and/or resources: No EDUCATION: Other: /sammy VERONICA LPN LICENSED PRACTICAL NURSE Signed: 04/06/2024 11:44 04/06/2024 ADDENDUM STATUS: COMPLETED msa please request last Colonoscopy and pathology results from [facility] (Dr. Giang) for pact team 5 /sammy VERONICA LPN LICENSED PRACTICAL NURSE Signed: 04/06/2024 13:53 Receipt Acknowledged By: 04/06/2024 13:57 /sammy FERNANDES 04/06/2024 ADDENDUM STATUS: COMPLETED Records requested from [facility] for colonoscopy and pathology results. /sammy FERNANDES Signed: 04/06/2024 14:20 HEIDI VERONICA [facility] Apr 06, 2024 11:26 AM PHYSICIAN ASSISTAN T NOTE: LOCAL TITLE: PA NOTE STANDARD TITLE: PHYSICIAN VIBRATOR OPERATOR NOTE DATE OF NOTE: APR 06, 2024@11:26 ENTRY DATE: APR 06, 2024@11:26:35 AUTHOR: RICK BONILLA COSIGNER: URGENCY: STATUS: COMPLETED S - routine re-eval O - coop A&Ox3 NAD W-N/H/D HEENT: normocephalic NECK: supple mobile no bruits not tender and no adeno LUNGS: resp full reg unlabored; CTA b/l COR: RRR, no M ABD: soft, not tender no mass, megaly EXT: no LLE or calf tenderness FEET: no cutaneous lesions dist vascu intact sensory decreased due to prior hammer-toe surg LABS: reviewed w/ pt A/P - 1) HTN - BP 138/80; HR 68 2) CKD Stage 3; eGFR 59 ; Creat 1.3 and K 4.5 in APR 12 - on Zestril - on HCTZ 3) C/V Stable - never LA 4) Neuro Stable - never CVA/TIA 5) Hypercholesterolemia - LDL 82 in APR 12 6) On Anti-Coag Therapy?? NO - cont Lipitor; LFT's WNL - diet, wt 7) DM II - FBS 147 and A1C 6.6 in APR 12 - cont Trulicity Once Week; Gets from Outside Doctor (dose can vary) - cont Metformin; Creat - foot and eye care - diet, wt 8) CBC Profile: WBC's and RBC's H/H and MCV Ferritin 9) Health Maintenance - next colonoscopy due to 2028 10) Stress? - nothing untoward RTC APR 13 - labs before Suicide Screen: C-SSRS Screening [place]-Suicide Severity Rating Scale (C-SSRS Screener) 1. Over the past month, have you wished you were or wished you could go to sleep and not wake up? No 2. Over the past month, have you had any actual thoughts of killing yourself? No 3. Over the past month, have you been thinking about how you might do this? Response not required due to responses to other questions. 4. Over the past month, have you had these thoughts and had some intention of acting on them? Response not required due to responses to other questions. 5. Over the past month, have you started to work out or worked out the details of how to kill yourself? Response not required due to responses to other questions. 6. If yes, at any time in the past month did you intend to carry out this plan? Response not required due to responses to other questions. 7. In your lifetime, have you ever done anything, started to do anything, or prepared to do anything to end your life (for example, collected pills, obtained a gun, gave away valuables, went to the roof but didn't jump)? No 8. If YES, was this within the past 3 months? Response not required due to responses to other questions. Avg Risk Colorectal Cancer Screen: AVERAGE RISK colorectal cancer screening is due based on information available to this clinical reminder Prior/outside colonoscopy results: Date: March, ? Exact date is unknown Average risk screening reminder set 5 years from APR 06, 2024. Comment: 2028 Assess Statin Use - Lipids (CVD/DM): The patient is still taking the NON-VA statin medication as documented. Homelessness/Food Insecurity Screen: In the past 2 months, have you been living in stable housing that you own, rent, or stay in as part of a household? Yes - Living in stable housing. Are you worried or concerned that in the next 2 months you may NOT have stable housing that you own, rent, or stay in as part of a household? No - Not worried about housing near future The [place] reports the following: Within the past 12 months, you worried whether your food would run out before you got money to buy more. Never true Within the past 12 months, the food you bought just didn't last and you didn't have money to get more. Never true Depression Screening: Perform PHQ-2 A PHQ-2 screen was performed. The score was 0 which is a negative screen for depression. Over the past two weeks, how often have you been bothered by the following problems? 1. Little interest or pleasure in doing things Not at all 2. Feeling down, depressed, or hopeless Not at all Tobacco Use Screening: The patient has never used tobacco. Medication Reconciliation: Outpatient: Has the patient been taking medications as documented in the EMLR? YES: The patient has been taking medications as documented in the EMLR. Essential Medication List for Review used to complete this medication reconciliation. INCLUDED IN THIS LIST: Alphabetical list of active outpatient prescriptions dispensed from this [facility] (local) and dispensed from another VA or [facility]D facility (remote) as well as inpatient orders (local, pending and active), local clinic medications, locally documented non-VA medications, and local prescriptions that have or been discontinued in the past 90 days. - All changes in medications, including all non-VA/Herbal/OTC medications were entered into CPRS. Changes: nt - If there were any medications the patient should no longer take, they were discontinued. - The patient/caregiver was instructed to update this list, discard old lists, and take this list to the next appointment, whether with a VA or non-VA provider. Alcohol Use Screen (AUDIT-C): Alcohol Screen: SCREEN FOR ALCOHOL (AUDIT-C) An alcohol screening test (AUDIT-C) was negative (score=1). 1. How often did you have a drink containing alcohol in the past year? Consider a drink to be a 12 ounce can or bottle of regular beer, 8 ounces of malt liquor, a 5 ounce glass of table wine, or a 1.5 ounce shot of liquor (like scotch, gin, or vodka). Monthly or less 2. How many drinks containing alcohol did you have on a typical day when you were drinking in the past year? One or two drinks 3. How often did you have six or more drinks on one occasion in the past year? Never Sexual Orientation: The patient thinks of their sexual orientation as: Straight or Heterosexual PAVE Foot Check: A complete foot check was completed at this encounter. VISUAL INSPECTION: Includes inspection for skin breaks, deformity, erythema, trauma, pallor on elevation, dependent rubor, nail deformities, extensive callus and pitting edema. Visual exam results: Normal Comment: nl PEDAL PULSES: Includes palpation of dorsalis and posterior tibial pulses and signs/symptoms of vascular compromise like pain, pallor, parasthesia or paralysis. Present (even if diminished) Comment: nl SENSORY CHECK: Includes 10 gram Monofilament (Constantia-Vicente) test of sensation. Intact (Greater than or equal to 80% of sites checked) Abnormal (Less than 80% of sites checked): Intact Comment: nl LOW-RISK: LOW RISK INFORMATION PROVIDED: 1. Advised patient not to walk barefoot. 2. Explained the importance of daily foot checks for changes. 3. Stressed the importance of daily foot hygiene, including bathing and complete drying. /es/ RICK BONILLA PA-C STAFF PHYSICIAN VIBRATOR OPERATOR Signed: 04/06/2024 11:45 RICK BONILLA
--- OUTSIDE RECORDS SUMMARY | 2024-06-29 15:39 | XMS_ITS ---
Author Name [facility] [place] Organization [facility] [place] Address [address] [place] [address] Care Team Providers Care Test Engine Evaluator Name Role Phone ULICES MARIA Primary Care [...] PART A Oct 18, 2021 PART A [id number] [facility] [phone] SIMBA KIDD PATIENT MEDICARE (WNR) MEDICARE (M) PART B Oct 18, 2021 PART B [id number] [facility] SIMBA KIDD PATIENT FOR LIFE TFL* Oct 18, 2021 [id number] [phone] SIMBA KIDD PATIENT [facility] (WNR) TRICA RE(WN R) November 17, 2016 (WNR) [id number] [phone] [place] PATIENT Selected Encounter This section includes the information on record at [place] for the Encounter. Date/Time Encounter Type Encounter Description Reason Pro vider Source Apr 06, 2024 12:00 AM Outpatient Encounter EVENT (HISTORICAL) IHE Encounter Template Text not used by [place] Plan of Treatment: Future Appointments (+ 6 months) and Future Tests (+/- 45 days) The Plan of Treatment section includes future care activities for the patient from all [place] treatmentfacilities. This section includes future appointments and future orders which are active, pending or scheduled. Future Appointments This section includes appointments that were scheduled to occur 6 months from the date of the Encounter, up to a maximum of 20 appointments. The data comes from all [place] treatment facilities. Appointment Date/Time Appointment Type Appointme nt Facility Name Apr 26, 2024 03:00 PM AMBULATORY - MEDICINE [facility] Lab Results: +/- 30 days of the encounter This section includes the Chemistry and Hematology Lab Results on record with [place] for the patient. Radiology Reports and Pathology Reports are provided separately, in subsequent sections. Lab Results This section contains the Chemistry/Hematology Results that were resulted 30 days before or 30 daysafter the date of the Encounter. Date/Time Source Result Type Result - Unit Interpretation Reference Range Comment Apr 05, 2024 09:22 AM [facility] MICROALBUMIN CREATININE RATIO PANEL Spe cimen Type: URINE No comment entered. Ordering Provider: ULICES LUCAS Report Released Date/Time: Apr 06, 2023 01:26 PM Reporting Lab: [facility] [address] [facility] [address] Performing Lab: [facility] [address] [facility] [address] MICROALBUMIN/C REATININE RATIO 4.7 mg/g 0-29.9 MICROALBUMIN,Q UANTITATIVE 0.9 mg/dL RR UNAVAIL CREATININE URINE 190.74 mg/dL Apr 05, 2024 09:22 AM [facility] URINALYSIS Specimen Type: URINE Comment: If Glucose = >500 and Ketones are positive, please alert the Physician. Ordering Provider: ULICES LUCAS Report Released Date/Time: Apr 06, 2023 01:26 PM Reporting Lab: [place] [address] [address] Performing Lab: [address] [address] UA COLOR Yellow Yellow UA APPEARANCE Clear Clear UA GLUCOSE Normal mg/dL Negative UA KETONES NEGATIVE mg/dL Negative UA BLOOD NEGATIVE mg/dL Negative UA PROTEIN 10 mg/dL Negative UA NITRITE NEGATIVE mg/dL Negative UA BILIRUBIN NEGATIVE mg/dL Negative UA SPECIFIC GRAVITY 1.030 H 1.016-1.022 UA pH 5.5 5.0-9.0 UA UROBILINOGEN Normal mg/dL <2.0 UA LEUKOCYTE NEGATIVE Negative Apr 05, 2024 09:12 AM [facility] TSH Specimen Type: SERUM No comment entered. Ordering Provider: ULICES LUCAS Report Released Date/Time: Apr 06, 2023 01:26 PM Reporting Lab: [address] [address] Performing Lab: [address] [address] TSH 2.71 u[IU]/mL 0.35-5.00 Apr 05, 2024 09:12 AM [facility] VITAMIN D (25-OH) Specimen Type: SERUM No comment entered. Ordering Provider: ULICES LUCAS Report Released Date/Time: Apr 06, 2023 01:26 PM Reporting Lab: [address] [address] Performing Lab: [address] [address] VITAMIN D (25-OH) 31 ng/mL 20-50 Apr 05, 2024 09:12 AM [facility] FERRITIN Specimen Type: SERUM No comment entered. Ordering Provider: ULICES LUCAS Report Released Date/Time: Apr 06, 2023 01:26 PM Reporting Lab: [address] [address] Performing Lab: [address] [address] FERRITIN 25 ng/mL 20-300 Apr 05, 2024 09:12 AM [facility] IRON & TIBC PANEL Specimen Type: SERUM No comment entered. Ordering Provider: ULICES LUCAS Report Released Date/Time: Apr 06, 2023 01:26 PM Reporting Lab: [address] [address] Performing Lab: [address] [address] TIBC 350 ug/dL 204-475 IRON 63 ug/dL 40-160 Transferrin Saturation 18.0 L 20.0-50.0 Transferrin (TRF) 265 mg/dL 200-360 Apr 05, 2024 09:12 AM [facility] PSA Specimen Type: SERUM No comment entered. Ordering Provider: ULICES LUCAS Report Released Date/Time: Apr 06, 2023 01:26 PM Reporting Lab: [address] [address] Performing Lab: [address] [address] PSA 1.91 ng/mL 0.00-4.00 Apr 05, 2024 09:12 AM [facility] BASIC METABOLIC PANEL (fasting) Specime n Type: SERUM No comment entered. Ordering Provider: ULICES LUCAS Report Released Date/Time: Apr 06, 2023 01:26 PM Reporting Lab: [address] [address] Performing Lab: [address] [address] UREA NITROGEN 33 mg/dL H 7-25 GLUCOSE 147 mg/dL H 65-100 SODIUM 140 mmol/L 135-145 POTASSIUM 4.5 mmol/L 3.5-5.0 CHLORIDE 108 mmol/L 100-110 CO2 23 meq/L 20-30 CREATININE, Serum 1.32 mg/dL 0.50-1.40 eGFR(CKD-EPI 2020) 59 mL/min L >60 Apr 05, 2024 09:12 AM [facility] LIPID PANEL FASTING Specimen Type: SERUM No comment entered. Ordering Provider: ULICES LUCAS Report Released Date/Time: Apr 06, 2023 01:26 PM Reporting Lab: [address] [address] Performing Lab: [address] [address] CHOLESTEROL 134 mg/dL TRIGLYCERIDE 70 mg/dL 0-150 LDL calculated 82 mg/dL 0-129 CHOL/HDL 3.5 HDL CHOLESTEROL 38 mg/dL L 40-60 Apr 05, 2024 09:12 AM [facility] LIVER FUNCTION Specimen Type: SERUM No comment entered. Ordering Provider: ULICES LUCAS Report Released Date/Time: Apr 06, 2023 01:26 PM Reporting Lab: [address] [address] Performing Lab: [address] [address] PROTEIN,TOTAL 6.4 g/dL 6.0-8.3 ALBUMIN 4.0 g/dL 3.5-5.0 ALKALINE PHOSPHATASE 60 U/L 40-150 AST 23 U/L 5-34 ALT 23 U/L BILIRUBIN, TOTAL 0.5 mg/dL 0.2-1.2 Apr 05, 2024 09:12 AM [facility] CBC AND DIFF (AUTO) Specimen Type: BLOOD No comment entered. Ordering Provider: ULICES LUCAS Report Released Date/Time: Apr 06, 2023 01:26 PM Reporting Lab: [address] [address] Performing [facility]: [facility] [address] [address] WBC 6.99 10*3/uL 4.50-11.00 RBC 5.33 10*6/uL [...] 10*3/uL 0.00-0.00 Apr 05, 2024 09:12 AM [facility] HEMOGLOBIN A1C PANEL Specimen Type: BLOOD Comment: [...] Apr 06, 2023 01:26 PM Reporting Lab: [address] [address] Performing Lab: [address] [address] HEMOGLOBIN A1C 6.6 H 4.0-5.6 Social History: Smoking Status (Most current) and Tobacco Use (All prior to encounter date) This section includes the most current, and the historical, smoking and tobacco- related health factors from the [place] facility where the Encounter took place. Current Smoking Status This section includes the most current smoking, or tobacco-related health factor, from the [place] facility where the Encounter took place. Date/Time Current Smoking Status Comment Ebony perez Apr 06, 2023 10:22 AM [place]-TOBACCO NEVER USED [place] [facility] Advance Directives: All historical and current Section Date Range: From patient's date of to the date document was created. This section includes ALL of a patient's completed or amended [place] Advance and Rescinded Directives. The entries below indicate that a directive exists for the patient, but an actual copy is not included with this document. The data comes from all [place] facilities. Date Advance Directives Provider Source Apr 06, 2023 ADVANCE DIRECTIVE TRACEE KYLE
--- OUTSIDE RECORDS SUMMARY | 2024-06-29 15:39 | XMS_ITS | Encounter Summary ---
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 Date/Time Encounter Type Encounter Description Reason Pro vider Source Mar 22, 2024 09:49 AM Outpatient Encounter ADMIN PAT ACTIVTIES (MASNONCT) IHE Encounter Template Text not used by [place] Plan of Treatment: Future Appointments (+ 6 months) and Future Tests (+/- 45 days) The Plan of Treatment section includes future care activities for the patient from all [place] treatmentfacilities. This section includes future appointments and future orders which are active, pending or scheduled. Future Appointments This section includes appointments that were scheduled to occur 6 months from the date of the Encounter, up to a maximum of 20 appointments. The data comes from all [place] treatment facilities. Appointment Date/Time Appointment Type Appointme nt Facility Name Apr 06, 2024 11:30 AM AMBULATORY - MEDICINE [facility] Apr 26, 2024 03:00 PM AMBULATORY - MEDICINE [facility] Lab Results: +/- 30 days of the encounter This section includes the Chemistry and Hematology Lab Results on record with [place] for the patient. Radiology Reports and Pathology Reports are provided separately, in subsequent sections. Lab Results This section contains the Chemistry/Hematology Results that were resulted 30 days before or 30 daysafter the date of the Encounter. Date/Time Source Result Type Result - Unit Interpretation Reference Range Comment Apr 05, 2024 09:22 AM [facility] MICROALBUMIN CREATININE RATIO PANEL Spe cimen Type: URINE No comment entered. Ordering Provider: ULICES LUCAS Report Released Date/Time: Apr 06, 2023 01:26 PM Reporting Lab: [facility] [address] [facility] [address] Performing Lab: [facility] [address] [facility] [address] MICROALBUMIN/C REATININE RATIO 4.7 mg/g 0-29.9 MICROALBUMIN,Q UANTITATIVE 0.9 mg/dL RR UNAVAIL CREATININE URINE 190.74 mg/dL Apr 05, 2024 09:22 AM [facility] URINALYSIS Specimen Type: URINE Comment: If Glucose = >500 and Ketones are positive, please alert the Physician. Ordering Provider: ULICES LUCAS Report Released Date/Time: Apr 06, 2023 01:26 PM Reporting Lab: [facility] [address] [address] Performing Lab: [facility] [address] [address] UA COLOR Yellow Yellow UA APPEARANCE Clear Clear UA GLUCOSE Normal mg/dL Negative UA KETONES NEGATIVE mg/dL Negative UA BLOOD NEGATIVE mg/dL Negative UA PROTEIN 10 mg/dL Negative UA NITRITE NEGATIVE mg/dL Negative UA BILIRUBIN NEGATIVE mg/dL Negative UA SPECIFIC GRAVITY 1.030 H 1.016-1.022 UA pH 5.5 5.0-9.0 UA UROBILINOGEN Normal mg/dL <2.0 UA LEUKOCYTE NEGATIVE Negative Apr 05, 2024 09:12 AM [facility] TSH Specimen Type: SERUM No comment entered. Ordering Provider: ULICES LUCAS Report Released Date/Time: Apr 06, 2023 01:26 PM Reporting Lab: [facility] [address] [address] Performing Lab: [facility] [address] [address] TSH 2.71 u[IU]/mL 0.35-5.00 Apr 05, 2024 09:12 AM [facility] VITAMIN D (25-OH) Specimen Type: SERUM No comment entered. Ordering Provider: ULICES LUCAS Report Released Date/Time: Apr 06, 2023 01:26 PM Reporting Lab[facility] [address] Performing Lab: [facility] [address] VITAMIN D (25-OH) 31 ng/mL 20-50 Apr 05, 2024 09:12 AM [facility] FERRITIN Specimen Type: SERUM No comment entered. Ordering Provider: ULICES LUCAS Report Released Date/Time: Apr 06, 2023 01:26 PM Reporting Lab: [address] [address] Performing Lab: [facility] [address] [address] FERRITIN 25 ng/mL 20-300 Apr 05, 2024 09:12 AM [facility] IRON & TIBC PANEL Specimen Type: SERUM No comment entered. Ordering Provider: ULICES LUCAS Report Released Date/Time: Apr 06, 2023 01:26 PM Reporting Lab: [facility] [address] [address] Performing Lab: [facility] [address] [address] TIBC 350 ug/dL 204-475 IRON 63 ug/dL 40-160 Transferrin Saturation 18.0 L 20.0-50.0 Transferrin (TRF) 265 mg/dL 200-360 Apr 05, 2024 09:12 AM [facility] PSA Specimen Type: SERUM No comment entered. Ordering Provider: ULICES LUCAS Report Released Date/Time: Apr 06, 2023 01:26 PM Reporting Lab: [facility] [address] [address] Performing Lab: [facility] [address] [address] PSA 1.91 ng/mL 0.00-4.00 Apr 05, 2024 09:12 AM [facility] BASIC METABOLIC PANEL (fasting) Specime n Type: SERUM No comment entered. Ordering Provider: ULICES LUCAS Report Released Date/Time: Apr 06, 2023 01:26 PM Reporting Lab: [facility] [address] [address] Performing Lab: [facility] [address] [address] UREA NITROGEN 33 mg/dL H 7-25 GLUCOSE 147 mg/dL H 65-100 SODIUM 140 mmol/L 135-145 POTASSIUM 4.5 mmol/L 3.5-5.0 CHLORIDE 108 mmol/L 100-110 CO2 23 meq/L 20-30 CREATININE, Serum 1.32 mg/dL 0.50-1.40 eGFR(CKD-EPI 2020) 59 mL/min L >60 Apr 05, 2024 09:12 AM [facility] LIPID PANEL FASTING Specimen Type: SERUM No comment entered. Ordering Provider: ULICES LUCAS Report Released Date/Time: Apr 06, 2023 01:26 PM Reporting Lab: [facility] [address] [facility] [address] Performing Lab: [address] [address] CHOLESTEROL 134 mg/dL TRIGLYCERIDE 70 mg/dL 0-150 LDL calculated 82 mg/dL 0-129 CHOL/HDL 3.5 HDL CHOLESTEROL 38 mg/dL L 40-60 Apr 05, 2024 09:12 AM [facility] LIVER FUNCTION Specimen Type: SERUM No comment entered. Ordering Provider: ULICES LUCAS Report Released Date/Time: Apr 06, 2023 01:26 PM Reporting Lab: [address] [address] Performing Lab: [address] [address] PROTEIN,TOTAL 6.4 g/dL 6.0-8.3 ALBUMIN 4.0 g/dL 3.5-5.0 ALKALINE PHOSPHATASE 60 U/L 40-150 AST 23 U/L 5-34 ALT 23 U/L BILIRUBIN, TOTAL 0.5 mg/dL 0.2-1.2 Apr 05, 2024 09:12 AM [facility] CBC AND DIFF (AUTO) Specimen Type: BLOOD No comment entered. Ordering Provider: ULICES LUCAS Report Released Date/Time: Apr 06, 2023 01:26 PM Reporting Lab: [address] [address] Performing Lab: [address] [address] WBC 6.99 10*3/uL 4.50-11.00 RBC 5.33 10*6/uL [...] 10*3/uL 0.00-0.00 Apr 05, 2024 09:12 AM [facility] HEMOGLOBIN A1C PANEL Specimen Type: BLOOD Comment: Values obtained from A1C measurements can vary. For atypical A1C assays, a reported value of 7.0 could actually be between 6.72 and 7.28 if measured by a reference method. A reported value of 9.0 could actually be between 8.73 and 9.27. Ref: http://www.ngs p.org/CAPdata. asp Ordering Provider: UILCES LUCAS Report Released Date/Time: Apr 06, 2023 01:26 PM Reporting Lab: [address] [address] Performing Lab: [address] [address] HEMOGLOBIN A1C 6.6 H 4.0-5.6 Social History: Smoking Status (Most current) and Tobacco Use (All prior to encounter date) This section includes the most current, and the historical, smoking and tobacco- related health factors from the [place] facility where the Encounter took place. Current Smoking Status This section includes the most current smoking, or tobacco-related health factor, from the [place] facility where the Encounter took place. Date/Time Current Smoking Status Comment Ebony perez Apr 06, 2023 10:22 AM [place]-TOBAC[place] NEVER USED [place] [facility] [place] [facility] Advance Directives: All historical and current Section Date Range: From patient's date of to the date document was created. This section includes ALL of a patient's completed or amended [place] Advance and Rescinded Directives. The entries below indicate that a directive exists for the patient, but an actual copy is not included with this document. The data comes from all [place] facilities. Date Advance Directives Provider Source Apr 06, 2023 ADVANCE DIRECTIVE SAROJTRACEE HYDE SEDALIA FIELD Encounter Notes: All associated encounter notes This section contains the clinical notes associated to the Encounter. Date/Time Encounter Note(s) Provider Source Mar 22, 2024 09:49 AM ADMINISTRATIVE NOT E: LOCAL TITLE: CCC: SCHEDULING ADMINISTRATION STANDARD TITLE: ADMINISTRATIVE NOTE DATE OF NOTE: MAR 22, 2024@09:49:12 ENTRY DATE: MAR 22, 2024@09:49:12 AUTHOR: FELTON ARROYO COSIGNER: URGENCY: STATUS: COMPLETED CCC: SCHEDULING ADMINISTRATION Has ADDENDA Patient Demographics Patient Name: BENJAMIN KIDD Patient Primary Phone: [phone] Patient Primary Address: [address] [place] [address] Patient : 1955 Patient Age: 68 Call Back Number: Caller/Recipient Relation to Patient: Self Scheduling Cannot Complete Scheduling Action Reason: No Appointment Available Requested Service(s): Primary Care Patient Requests Appt on or around: 2024-04-06 00:00:00 Provider: Attila Patient Expects Callback: Yes Scheduling Note Reason: Cannot Complete Appointment Request Scheduling Note Comments: RS RTC PID 04/06/24, CXC ON 04/07/24. NO AVAILABLE APPTS WITHIN 20 DAYS OF PID. Open Request: RTC (Return to Clinic Order) IMPORTANT: This note was created by [facility] staff. Please do not alert the staff member by adding them as a signer for future communications. Alerts are not monitored by this user. 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 /reggie/ MAGDI FERNANDES Signed: 03/22/2024 15:06 FELTON ARROYO [facility]
--- OUTSIDE RECORDS SUMMARY | 2024-06-29 15:40 | XMS_ITS | Patient Health Record ---
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 Agronomy Manager Name Role Phone RICK RENE Primary Care Provider Johnathan John [phone] ALLERGIES No Known Allergies REASON FOR REFERRAL No Information MEDICATIONS Medication SIG (Take, Route, Frequency, Duration) Notes Start Date End Date Status Iron 325 (65 Fe) MG 1 tablet Orally Once a day Active Omeprazole 20 MG TAKE 1 CAPSULE BY [facility] EVERY MORNING for 90 Active Multi Vitamin/Minerals - 1 Orally QD Active hydroCHLOROthiazide 25 MG 1 tablet in th e morning Orally Once a day Active Fish Oil 1000 MG 1 capsule Orally Twi ce a day Active Simvastatin 20 MG 1 tablet in the even ing Orally Once a day Active Lisinopril 5 MG 1 tablet Orally Once a day Active metFORMIN HCl 1000 MG 1 tablet with a me al Orally Twice a day Active Trulicity 1.5 MG/0.5ML as directed Subcutaneous Active IMMUNIZATIONS Vaccine Route Administration Date Status Comme nts Influenza Unknown 04/27/2018 Administered Influenza Unknown 06/11/2021 Administered SOCIAL HISTORY Tobacco Use: Social History Observation Description Date Details (start date - stop date) Never Smoker NA - NA Sex Assigned At : Social History Observation Description Sex Assigned At Unknown Tobacco Use/Smoking Question Answer Notes Patient is a nonsmoker Alcohol Screen Question Answer Notes Did you have a drink contain ing alcohol in the past year? Yes How often did you have a dri nk containing alcohol in the past year? 2 to 4 times a month (2 points) How many drinks did you have on a typical day when you were drinking in the past year? 1 or 2 drinks (0 point) How often did you have 6 or more drinks on one occasion in the past year? 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 920031663 Problem Gastroesophageal reflux disease with esophagitis without hemorrhage (K21.00) Active confirmed 301286138 Problem 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 Méndez esophagus (541656995) PLAN OF TREATMENT Future Test Test Name Order Date UPPER GI ENDOSCOPY 06/25/2018 COLONOSCOPY 06/25/2018 UPPER GI ENDOSCOPY 11/13/2021 Insurance Providers Payer Name Payer Address Payer Phone Subscriber Number Group Number Insured Name Patient Relationship to Insured Coverage Start Date Coverage End Date MEDICARE OF [place] [address] [place] [address] [phone] [id number] BENJAMIN KIDD Self - patient is the insured [employer] [address] [place] [address] [id number] BENJAMIN KIDD Self - patient is the insured MEDICAL (GENERAL) HISTORY Medical History History ICD Code Screening colonoscopy 02-14- 009--negative except for mild sigmoid diverticulosis and internal hemorrhoids Diverticulitis on CT scan 2015--treated with inpatient and outpatient antibiotics NIDDM Hyperlipidemia Denies TN,CVA,Lung disease,renal disease HTN Iron def anemia--EGD in 08/08 19-small HH, mild esophagitis and small area of Méndez's-no dysplasia, duodenal biopsies were negative for celiac disease; neg colonoscopy in 07/2018. The anemai was probably related to his mild esophagitis and regular blood donations Surgical History Surgery Date(Month/Year) Surgery for a deviated septum Shoulder surgery Wrist surgery Knee surgery Tonsillectomy Inguinal hernia
--- OUTSIDE RECORDS SUMMARY | 2024-06-29 15:40 | XMS_ITS ---
Author Organization [facility] Ren[facility] an [place] Address [address] [place] [address] Care Team Providers Care Forepart Rounder Name Role Phone Giovanni Choe Primary Care Provider Unav ailable Maurizio Rivas Unavailable [phone] Allergies No Known Allergies REASON FOR VISIT Wart(s), Skin problem(s) Medications Medication SIG (Take, Route, Frequency, Duration) Notes Start Date End Date Status Pentoxifylline ER 400 MG TAKE ONE TABLET BY MOUTH TWICE A DAY Oral for 90 Active Fish Oil 1000 MG 1 capsule Orally Onc e a day 12/25/2016 Unknown Aspirin 81 MG 1 tablet Orally Once a day Unknown Simvastatin 20 MG 1 tablet in the evening Orally Once a day Unknown glyBURIDE 1.25 MG 1 tablet with breakfast or the first main meal of the day Orally Once a day Unknown Cetirizine HCl 10 MG 1 tablet Orally Onc e a day for 30 day(s) 01/25/2024 Active Ferrous Sulfate 325 (65 Fe) MG 1 tablet Orally Three times a Week for 30 day(s) 01/25/2024 Active Fiber 625 MG 2 tablets as needed Orally Three times a day 01/25/2024 Active Multivitamin - 1 tablet Orally Once a day for 30 day(s) 01/25/2024 Active Kgdrpt-Sqfpvbcuz-NWZ Complex - as directed Orally 01/25/2024 Active Tamsulosin HCl 0.4 MG Oral for 90 Active Vitamin E 450 MG (1000 UT) TAKE ONE CAPS ULE BY MOUTH EVERY DAY Oral for 90 Active Omeprazole 20 MG TAKE ONE CAPSULE BY MOUTH EVERY DAY IN THE MORNING Oral for 90 Active Atorvastatin Calcium 20 MG TAKE 1 TABLET DAILY Oral for 90 Active Sildenafil Citrate 25 MG TAKE 1 TABLET B Y MOUTH ONCE A DAY 30 MINUTES TO 4 HOURS BEFORE SEXUAL ACTIVITY NEEDED Oral for 14 Active hydroCHLOROthiazide 25 MG 1 tablet in th e morning Orally Three times a Week Active Ammonium Lactate 12 % 1 application Externally Twice a day for 30 days Active Trulicity 3 MG/0.5ML as directed Subcutaneous Active Lisinopril 5 MG 1 tablet Orally Once a day Active metFORMIN HCl 1000 MG 1 tablet with meal s Orally Twice a day Active Social History Tobacco Use: Social History Observation Description Date Details (start date - stop date) Never Smoker NA - NA Tobacco Use/Smoking Question Answer Notes Are you a: nonsmoker Additional Findings: Tobacco Non-User Current no n-smoker Alcohol Screen Question Answer Notes Did you have a drink contain ing alcohol in the past year? Yes How often did you have a dri nk containing alcohol in the past year? 2 to 4 times a month (2 points) Points 2 Interpretation Negative Tobacco use other than smoking: Question Answer Notes Are you an other tobacco user? No Problems Problem Type SNOMED Code ICD Code Onset Dates Problem Status W/U Status Risk Notes Problem Plantar wart (66769205) Plantar wart (B07.0) Active confirmed Problem Type 2 diabetes mellitus without complication (637312082) Type 2 diabetes mellitus without complication (E11.9) Active confirmed Vital Signs Height 6ft 1 in in 02/05/2024 Weight 195 lbs lbs 02/05/2024 BMI 25.72 kg/m2 02/05/2024 Procedures Procedure Date Ordered Date Performed Result Body Sit e 84890-Rfnn Destruction, 1-14 02/05/2024 N/A Encounters Encounter Location Date Provider Diagnosis [facility] [address] [place] [address] 02/05/2024 Maurizio Rivas Plantar wart B07.0 ; Left foot pain M79.672 ; Xerosis of skin L85.3 and Type 2 diabetes mellitus without complication E11.9 Assessments Encounter Date Diagnosis (ICD Code) Assessment Notes Treatment Notes Treatment Clinical Notes Section Notes 02/05/2024 Plantar wart (ICD-10 - B07.0) 02/05/2024 Left foot pain (ICD-10 - M79.672) 02/05/2024 Xerosis of skin (ICD-10 - L85.3) 02/05/2024 Type 2 diabetes mellitus without complication (ICD-10 - E11.9) Plan Of Treatment Medication Medication Name Sig Start Date Stop Date Notes Ammonium Lactate 12 % 1 application Exte rnally Twice a day for 30 days Pending Test Test Name Order Date [id number] Destruction, 1-14 02/05/2024 Next Appt Details Follow Up: prn, Reason: Procedure Notes * Category Sub-Category Detail Notes Wart Treatment Procedure Verrucae were de brided to pin-point bleeding margins with sterile 15 surgical blade, silver nitrate chemocautery applied, recomm. immune-boosting meds such as zinc, recomm. follow up with topical chemosurgical agents, Pt defers any other forms of tx (99317) , Verrucae were debrided to pin-point bleeding margins with sterile 15 surgical blade, silver nitrate chemocautery applied, recomm. immune-boosting meds such as zinc, recomm. follow up with topical chemosurgical agents, Pt defers any other forms of tx (96041) Progress Notes * Michael MARTINEZ DDOB: (68 yo M)Acc No.[id number]:02/05/2024 Progress Notes Patient:?Michael Martinez D Provider:?Maurizio Rivas DPM :1955???Age:68 Y???Sex:Male Festus e:02/05/2024 Address:[address] [place] [address] Pcp:HANY Riggins Subjective: * Chief Complaints: * ???Wart(s)Skin problem(s) * HPI: ???Skin problems:?Pt States PCP Visit: ?DATE?10/19/2023 ?Nature:?dryness , scaling.?Location:?B/L .?Duration:?several days.?Course:?worse.? * ROS:?General/Constitutional:?Nausea?denies.?Vomiting?denies.?Hunger Thirst?denies.?Loss appetite?denies.?Chills?denies.?Fatigue?denies.?Fever?denies.?Night Sweats?denies.?Unexplained weight loss?denies.?Unexplained weight gain?denies.?HEENTM:?Dentures?denies.?Dizziness?denies.?Glasses/contacts??admits.?Retinopathy?d enies.?Blurred/double vision?denies.?TMJ?denies.?Discharge/drainage?denies.?Implants?admits.?Sore throat denies.?Dental implants?denies.?Hard of hearing ?admits ?.?Difficulty chewing/swallowing/speaking?denies.?Nose bleeds?denies.?Sore mouth?denies.?Respiratory:?On Oxygen?denies.?Pneumonia/pleurisy?denies.?Bronchitis?denies.?Emphysema?denies.?C oughing?denies.?Cough blood?denies.?Shortness of breath?denies.?Wheezing?denies.?Cardiovascular:?Pacemaker?denies.?MVP?denies.?WPW?denies.?CHF?denies.?Heart attack?denies.?Septal defect?denies.?Rapid beat?denies.?Chest pain ?denies.?Atrial Fib.?denies.?Murmur/Palpitations?denies.?Gastrointestinal:?Hemorrhoids?denies.?Stomach/Abdominal pain?denies.?Dark blood stool?denies.?Irritable bowel ?denies.?Constipation?denies.?Diarrhea?denies.?Hematology:?Swelling?denies.?Clots?denies.?Varicose Veins?denies.?Bruising?denies.?Bleeding problem?denies.?Genitourinary:?Blood urine?denies.?Frequent/Painfu/urination/bladder control?denies.?Kidney stones?denies.?Infection (UTI)?denies.?Nephropathy?denies.?sex trans dis (STD)?denies.?Prostate??admits.?Musculoskeletal:?Hammertoes?denies.?Bunions?denies.?Back Pain?denies.?Muscle Cramps/ Resting?denies.?Muscle cramps / walking?denies.?Generalized aches and pains?denies.?Weakness?denies.?Integ.:?Dave?denies.?Scars?admits ?.?Corns/calluses?admits ?.?Ingrown nails?denies.?Painful nails?denies.?Open Sores?denies.?Rashes?denies.?Neurologic:?Difficulty sleeping?denies.?Brain disorder?denies.?Numbness?denies.?Balance trouble?denies.?Confusion?denies.?Fainting/blackouts?denies.?Tingling?denies.?Tr emors?denies.? * Medical History:? * Surgical History:?wrist surg sadi (left) knee surgery, left ACL shoulder dislocation tonsillectomy deviated septum repair hernia hammer toe- 2nd toe left foot abdominal surgery- l duprytren's fracture Toe surdgery, Left foot 2016 * Hospitalization/Major Diagno stic Procedure:?Denies Past Hospitalization * Family History:?Mother: dece ased, diagnosed with Other malignant neoplasm of unspecified site.?Father: , arthritis, high blood pressure, diagnosed with Family history of arthritis, Diabetic - NIDDM, Unspecified essential hypertension.?Paternal Grand Mother: high blood pressure, diagnosed with Diabetic - NIDDM.?Siblings: unknown, diagnosed with Diabetic - NIDDM.?Paternal Grand Father: diagnosed with Unspecified cerebral artery occlusion with cerebral infarction.?Maternal Grand Mother: diagnosed with Other malignant neoplasm of unspecified site.?Maternal Grand Father: diagnosed with Other malignant neoplasm of unspecified site.? * Social History:?Tobacco Use:?Tobacco Use/Smoking?Are you a:?nonsmoker ?Additional Findings: Tobacco Non-User?Current non-smoker ?Tobacco use other than smoking?Are you an other tobacco user??No ???Drugs/Alcohol:?Drugs?Have you used drugs other than those for medical reasons in the past 12 months??No ?Alcohol Screen?Did you have a drink containing alcohol in the past year??Yes ?How often did you have a drink containing alcohol in the past year??2 to 4 times a month (2 points) ?Points?2 ?Interpretation?Negative ???Miscellaneous:?Caffeine: yes, 1-2 cups per day. ?Children: yes, 8. ?Exercise: walk 2-3miles 6-7x /week. ?Marital status: . 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 * Medications:?TakingTrulicity 3 MG/0.5ML Solution Pen-injector as directed Subcutaneous Lisinopril 5 MG Tablet 1 tablet Orally Once a daymetFORMIN HCl 1000 MG Tablet 1 tablet with meals Orally Twice a dayhydroCHLOROthiazide 25 MG Tablet 1 tablet in the morning Orally Three times a WeekTamsulosin HCl 0.4 MG Capsule Oral Vitamin E 450 MG (1000 UT) Capsule TAKE ONE CAPSULE BY MOUTH EVERY DAY Oral Omeprazole 20 MG Capsule Delayed Release TAKE ONE CAPSULE BY MOUTH EVERY DAY IN THE MORNING Oral Atorvastatin Calcium 20 MG Tablet TAKE 1 TABLET DAILY Oral Sildenafil Citrate 25 MG Tablet TAKE 1 TABLET BY MOUTH ONCE A DAY 30 MINUTES TO 4 HOURS BEFORE SEXUAL ACTIVITY NEEDED Oral Cetirizine HCl 10 MG Tablet 1 tablet Orally Once a dayFerrous Sulfate 325 (65 Fe) MG Tablet Delayed Release 1 tablet Orally Three times a WeekFiber 625 MG Tablet 2 tablets as needed Orally Three times a dayMultivitamin - Tablet 1 tablet Orally Once a yahYzaepv-Vwelkuzgy-HBN Complex - Tablet as directed Orally Pentoxifylline ER 400 MG Tablet Extended Release TAKE ONE TABLET BY MOUTH TWICE A DAY Oral Taking Trulicity 3 MG/0.5ML Solution Pen-injector as directed Subcutaneous Taking Lisinopril 5 MG Tablet 1 tablet Orally Once a dayTaking metFORMIN HCl 1000 MG Tablet 1 tablet with meals Orally Twice a dayTaking hydroCHLOROthiazide 25 MG Tablet 1 tablet in the morning Orally Three times a WeekTaking Tamsulosin HCl 0.4 MG Capsule Oral Taking Vitamin E 450 MG (1000 UT) Capsule TAKE ONE CAPSULE BY MOUTH EVERY DAY Oral Taking Omeprazole 20 MG Capsule Delayed Release TAKE ONE CAPSULE BY MOUTH EVERY DAY IN THE MORNING Oral Taking Atorvastatin Calcium 20 MG Tablet TAKE 1 TABLET DAILY Oral Taking Sildenafil Citrate 25 MG Tablet TAKE 1 TABLET BY MOUTH ONCE A DAY 30 MINUTES TO 4 HOURS BEFORE SEXUAL ACTIVITY NEEDED Oral Taking Cetirizine HCl 10 MG Tablet 1 tablet Orally Once a dayTaking Ferrous Sulfate 325 (65 Fe) MG Tablet Delayed Release 1 tablet Orally Three times a WeekTaking Fiber 625 MG Tablet 2 tablets as needed Orally Three times a dayTaking Multivitamin - Tablet 1 tablet Orally Once a dayTaking Tjkngm-Nlxrsyppk-MUD Complex - Tablet as directed Orally Taking Pentoxifylline ER 400 MG Tablet Extended Release TAKE ONE TABLET BY MOUTH TWICE A DAY Oral UnknownFish Oil 1000 MG Capsule 1 capsule Orally Once a dayAspirin 81 MG Tablet Chewable 1 tablet Orally Once a daySimvastatin 20 MG Tablet 1 tablet in the evening Orally Once a dayglyBURIDE 1.25 MG Tablet 1 tablet with breakfast or the first main meal of the day Orally Once a dayMedication List reviewed and reconciled with the patientUnknown Fish Oil 1000 MG Capsule 1 capsule Orally Once a dayUnknown Aspirin 81 MG Tablet Chewable 1 tablet Orally Once a dayUnknown Simvastatin 20 MG Tablet 1 tablet in the evening Orally Once a dayUnknown glyBURIDE 1.25 MG Tablet 1 tablet with breakfast or the first main meal of the day Orally Once a dayMedication List reviewed and reconciled with the patient * Allergies:?N.K.D.A.yes[Aller gies Verified] Objective: * Vitals:?Ht: 6ft 1 in, Wt:195 lbs, BMI:25.72, Shoe size: 10.5- 11, BS:not taken, Ht-cm: 185.42 cm, Wt-k.45 kg. * Examination: ???Dermatologic: ?SKIN FINDINGS:?Skin shows sign(s) of, dryness, scaling, in a stocking fashion, no fissure(s) present, B/L.?VERRUCA:?Reveals a Single , multi-loculated , mosaic-patterned, round, raised, flat-topped, petechial bleeding papule(s), with cauliflower appearance and interruption of skin lines, pain to lateral compression, and size estimated at 3mm diameter , plantar Forefoot , LEFT.?Orthopedic: ?MUSCLE STRENGTH:?5/5 all groups in a symmetrical fashion, B/L.?FOOT MORPHOLOGY:?Pes Cavus structure.?Vascular: ?DP PULSES:?3/, B/L.?PT PULSES:?3/4, B/L.?CAPILLARY FILL TIME:?immediate, all digits, B/L.?SKIN TEMPERTURE GRADIENT OF THE LOWER EXTERMITIES:?normal, warm to cool, proximal to distal, B/L, B/L.?HAIR GROWTH/TEXTURE/ELASTICITY/TURGOR:?normal, B/L.?PIGMENTATION:?normal, B/L.?EDEMA:?absent, B/L.?Neurological: ?SENSORY:?Pt relates, paresthesia, T1 stating due to previous surgery,?Neurological exam reveals intact sensorium, pain sensation normal, vibration sensation intact, pinprick sensation is normal in the lower extremities , 5.07 monofilament test performed at plantar aspects of 5 varied sites per foot shows sensation, normal, B/L.?General Examination: ?GENERAL APPEARANCE:?Reveals a pleasant, alert, well nourished, well- developed, well hydrated individual, who demonstrates proper attention to hygiene/body habitus, and is in no acute distress, Pt serves as own historian for office visit today.?ORIENTED:?person, place, and time.? Assessment: * Assessment: 1.?Plantar wart - B07.0 (Gita persaud), LEFT?2.?Left foot pain - M79.672?3.?Xerosis of skin - L85.3, Acute problem, Uncomplicated (3),Rx Management (4)?4.?Type 2 diabetes mellitus without complication - E11.9? Plan: * Treatment: 2.?Xerosis of skin? Start Ammonium Lactate Cream, 12 %, 1 application, Externally, Twice a day, 30 days, 60, Refills 2.?? * Procedures:?Wart Treatment:?Procedure?Verrucae were debrided to pin-point bleeding margins with sterile 15 surgical blade, silver nitrate chemocautery applied, recomm. immune-boosting meds such as zinc, recomm. follow up with topical chemosurgical agents, Pt defers any other forms of tx (88426) , Verrucae were debrided to pin-point bleeding margins with sterile 15 surgical blade, silver nitrate chemocautery applied, recomm. immune-boosting meds such as zinc, recomm. follow up with topical chemosurgical agents, Pt defers any other forms of tx (15192).? * Procedure Codes:?28360 Wart Destruction, 1-14 * Preventive Medicine:? ??Counseling:?Discussion:?-03: Office or other outpatient visit for the evaluation and management of a new patient, which required a medically appropriate history and/or examination and LOW level of DECISION MAKING for: 1 STABLE ACUTE UNCOMPLICATED PROBLEM, 2 OR MORE MINOR PROBLEMS, OR 1 STABLE CHRONIC PROBLEM, THAT POSE(S) A LOW RISK FOR MORBIDITY/MORTALITY. The visit on the day of the encounter encompassed interpreting the data and educating the patient as to the nature of their condition, treatment options available according to their individual PMH, meds, allergies, and overall health/living conditions, as well as any potential risks or complications that may occur from a failure to adhere to, and participate in, the recommended course of therapy. The discussion included a complete verbal, and/or written explanation of the examination results, any x-rays taken, the proposed diagnosis, and outline of the treatment plan. A schedule for future care needs was also explained. The patient verbalized an understanding of the instructions at this time and agreed to be an active participant in their treatment. If the patient should think of any questions or concerns after the visit, I have encouraged the patient to call the office.?Xerosis:?The patient was counseled on the diagnosis, potential etiologies, and treatment options for their skin condition. We discussed the risks and benefits of each option from performing no treatment, to utilizing OTC topical skin creams/ointments, to utilizing prescription topical creams/ointments, to utilizing customized compounded topical medications and use of nocturnal occlusion with any/all previously detailed therapies. We discussed the advantages and disadvantages of each possible treatment and importance for adherence to all the recommended therapies for optimum success and avoid potential complications such as open sore/infection/possible hospitalization. We discussed the potential effectiveness of each topical preparation as well as each ones possible side effects and/or patient medication interactions. Patient questions re: use, dosage, successful outcomes, and application consistency were reviewed and the patient verbalized that all answers were clearly understood. The patient has decided to apply Rx skin creams to their feet save the interspaces while paying special attention to the heels. Such was sent to their pharmacy at the time of visit.? * Follow Up:?prn * Images: * Sign off status: Completed true * Provider:?Maurizio Rivas DPM Date:?2023 Generated for Lucero rodriguez/Luiza/Mic on:?06/29/2024 03:39 PM EST History and Physical Notes * HPI (History of Present Illness) Category Sub-Category Detail Notes Category Not es Skin problems Nature: dryness , scaling Location: B/L Duration: several days Course: worse Pt States PCP Visit: DATE: 10/19/2023 Examination Category Sub-Category Detail Notes Category Not es Neurological SENSORY: Pt relates, pare sthesia, T1 stating due to previous surgery, Neurological exam reveals intact sensorium, pain sensation normal, vibration sensation intact, pinprick sensation is normal in the lower extremities , 5.07 monofilament test performed at plantar aspects of 5 varied sites per foot shows sensation, normal, B/L Dermatologic SKIN FINDINGS: Skin shows sign( s) of, dryness, scaling, in a stocking fashion, no fissure(s) present, B/L VERRUCA: Reveals a Single , m ulti-loculated , mosaic-patterned, round, raised, flat-topped, petechial bleeding papule(s), with cauliflower appearance and interruption of skin lines, pain to lateral compression, and size estimated at 3mm diameter , plantar Forefoot , LEFT Orthopedic FOOT MORPHOLOGY: Pes Cavus structure MUSCLE STRENGTH: 5/5 all groups in a symmetrical fashion, B/L General Examination GENERAL APPEARANCE: Reveals a pleasant, alert, well nourished, well-developed, well hydrated individual, who demonstrates proper attention to hygiene/body habitus, and is in no acute distress, Pt serves as own historian for office visit today ORIENTED: person, place, and t john Vascular DP PULSES(B): 3/4, B/L PT PULSES(B): 3/4, B/L CAPILLARY FILL TIME: immediate, all digi ts, B/L TEMPERTURE GRADIENT(C): normal, warm to cool, proximal to distal, B/L, B/L TROPHIC CONDITION-TEXTURE/ELASTICITY/TURGOR/HAIR GROWTH(B): normal, B/L EDEMA(C): absent, B/L PIGMENTATION: normal, B/L
--- OUTSIDE RECORDS SUMMARY | 2024-06-29 15:40 | XMS_ITS ---
Author Name [facility] Organization [facility] Address [address] [place] [id number] Care Team Providers Care Tandem Operator Name Role Phone ULICES MARIA Primary [...] PART A Oct 18, 2021 PART A [id number] [facility] SIMBA KIDD PATIENT MEDICARE (WNR) MEDICARE (M) PART B Oct 18, 2021 PART B [id number] [facility] SIMBA KIDD PATIENT FOR LIFE TFL* Oct 18, 2021 [id number] [facility] (WNR) TRICA RE(WN R) November 17, 2016 (WNR) [id number] [phone] SIMBA KIDD PATIENT Selected Encounter This section includes the information on record at [place] for the Encounter. Date/Time Encounter Type Encounter Description Reason Pro vider Source May 16, 2024 08:32 AM Outpatient Encounter PRIMARY CARE/MEDICINE IHE Encounter Template Text not used by [place] Social History: Smoking Status (Most current) and Tobacco Use (All prior to encounter date) This section includes the most current, and the historical, smoking and tobacco- related health factors from the [place] facility where the Encounter took place. Current Smoking Status This section includes the most current smoking, or tobacco-related health factor, from the [place] facility where the Encounter took place. Date/Time Current Smoking Status Comment Facil ity Apr 06, 2023 10:22 AM VA-TOBACCO NEVER USED [place] [facility] [place] [facility] Advance Directives: All historical and current Section Date Range: From patient's date of to the date document was created. This section includes ALL of a patient's completed or amended VA Advance and Rescinded Directives. The entries below indicate that a directive exists for the patient, but an actual copy is not included with this document. The data comes from all [place] facilities. Date Advance Directives Provider Source Apr 06, 2023 ADVANCE DIRECTIVE TRACEE KYLE [facility] Encounter Notes: All associated encounter notes This section contains the clinical notes associated to the Encounter. Date/Time Encounter Note(s) Provider Source May 16, 2024 08:32 AM PRIMARY CARE SECUR E MESSAGING: LOCAL TITLE: PRIMARY CARE SECURE MESSAGING STANDARD TITLE: PRIMARY CARE SECURE MESSAGING DATE OF NOTE: MAY 16, 2024@08:32 ENTRY DATE: MAY 16, 2024@08:32:42 AUTHOR: LEIA MADDEN EXP COSIGNER: URGENCY: STATUS: COMPLETED ------Original Message -------- Sent: 05/15/2024 10:41 PM ET From: MICHAEL KIDD LEXUS To: [facility]O_[facility] Subject: Medication:Renew prescription Could you please renew my prescription for Sildenafil Citrate 50mg? Michael Gaines /reggie/ LEIA FERNANDES Signed: 05/16/2024 08:32 Receipt Acknowledged By: 05/18/2024 16:30 /es/ TRACEE KYLE LPN LPN 05/19/2024 08:07 /es/ DAVID GATES, RN REGISTERED NURSE for [facility]
--- OUTSIDE RECORDS SUMMARY | 2024-06-29 15:40 | XMS_ITS | Encounter Summary ---
Author Name [facility] [facility] [place] Address [address] [place] [id number] Care Team Providers Care Retail Advertising Account Executive Name Role Phone ULICES MARIA Primary Care [...] PART A Oct 18, 2021 PART A [id number] [facility] [phone] SIMBA KIDD PATIENT MEDICARE (WNR) MEDICARE (M) PART B Oct 18, 2021 PART B [id number] [facility] SIMBA KIDD PATIENT FOR LIFE TFL* Oct 18, 2021 [id number] [facility] (WNR) TRICA RE(WN R) November 17, 2016 (WNR) [id number] [place], [place] JJ PATIENT Selected Encounter This section includes the information on record at [place] for the Encounter. Date/Time Encounter Type Encounter Description Reason Provider Source Apr 26, 2024 03:00 PM COMPRE OPH EXAM EST PT 1/> OPTOMETRY ICD-10-CM 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, r eye MELIA MUNOZ Shahid Encounter Template Text not used by [facility] Assessments - Encounter Diagnoses This section includes the primary and secondary diagnoses documented for the Encounter. Date/Time Primary/Secondary Diagnosis Diagnosis Name Provider Source Apr 27, 2024 06:51 AM PRIMARY Type 2 diab with mild nonp rtnop with macular edema, r eye SHABBIR MUNOZ [place] [facility] [place] [facility] Apr 27, 2024 06:51 AM SECONDARY Combined forms of age-related cataract, bilateral SHABBIR MUNOZ [place] [facility] [place] [facility] Apr 27, 2024 06:51 AM SECONDARY Other rosacea SHABBIR MUNOZ [place] [facility] [place] [facility] Apr 27, 2024 06:51 AM SECONDARY Type 2 diabetes mellitus without complications SHABBIR MUNOZ [place] [facility] [place] [facility] Lab Results: +/- 30 days of the encounter This section includes the Chemistry and Hematology Lab Results on record with [place] for the patient. Radiology Reports and Pathology Reports are provided separately, in subsequent sections. Lab Results This section contains the Chemistry/Hematology Results that were resulted 30 days before or 30 daysafter the date of the Encounter. Date/Time Source Result Type Result - Unit Interpretation Reference Range Comment Apr 05, 2024 09:22 AM [facility] MICROALBUMIN CREATININE RATIO PANEL Spe cimen Type: URINE No comment entered. Ordering Provider: ULICES LUCAS Report Released Date/Time: Apr 06, 2023 01:26 PM Reporting [facility] [address] [facility] [address] Performing Lab: [facility] [address] [facility] [address] MICROALBUMIN/C REATININE RATIO 4.7 mg/g 0-29.9 MICROALBUMIN,Q UANTITATIVE 0.9 mg/dL RR UNAVAIL CREATININE URINE 190.74 mg/dL Apr 05, 2024 09:22 AM [facility] URINALYSIS Specimen Type: URINE Comment: If Glucose = >500 and Ketones are positive, please alert the Physician. Ordering Provider: ULICES LUCAS Report Released Date/Time: Apr 06, 2023 01:26 PM Reporting Lab: [address] [address] Performing Lab: [address] [address] UA COLOR Yellow Yellow UA APPEARANCE Clear Clear UA GLUCOSE Normal mg/dL Negative UA KETONES NEGATIVE mg/dL Negative UA BLOOD NEGATIVE mg/dL Negative UA PROTEIN 10 mg/dL Negative UA NITRITE NEGATIVE mg/dL Negative UA BILIRUBIN NEGATIVE mg/dL Negative UA SPECIFIC GRAVITY 1.030 H 1.016-1.022 UA pH 5.5 5.0-9.0 UA UROBILINOGEN Normal mg/dL <2.0 UA LEUKOCYTE NEGATIVE Negative Apr 05, 2024 09:12 AM [facility] TSH Specimen Type: SERUM No comment entered. Ordering Provider: ULICES LUCAS Report Released Date/Time: Apr 06, 2023 01:26 PM Reporting Lab: [address] [address] Performing Lab: [address] [address] TSH 2.71 u[IU]/mL 0.35-5.00 Apr 05, 2024 09:12 AM [place] VITAMIN D (25-OH) Specimen Type: SERUM No comment entered. Ordering Provider: ULICES LUCAS Report Released Date/Time: Apr 06, 2023 01:26 PM Reporting Lab: [address] [address] Performing Lab: [address] [address] VITAMIN D (25-OH) 31 ng/mL 20-50 Apr 05, 2024 09:12 AM [place] FERRITIN Specimen Type: SERUM No comment entered. Ordering Provider: ULICES LUCAS M Report Released Date/Time: Apr 06, 2023 01:26 PM Reporting Lab: [facility] [address] [address] Performing Lab: [place] [facility] [address] [address] FERRITIN 25 ng/mL 20-300 Apr 05, 2024 09:12 AM [place] IRON & TIBC PANEL Specimen Type: SERUM No comment entered. Ordering Provider: ULICES LUCAS Report Released Date/Time: Apr 06, 2023 01:26 PM Reporting Lab: [place] [facility] [address] [address] Performing Lab: [place] [facility] [address] [address] TIBC 350 ug/dL 204-475 IRON 63 ug/dL 40-160 Transferrin Saturation 18.0 L 20.0-50.0 Transferrin (TRF) 265 mg/dL 200-360 Apr 05, 2024 09:12 AM [place] PSA Specimen Type: SERUM No comment entered. Ordering Provider: ULICES LUCAS Report Released Date/Time: Apr 06, 2023 01:26 PM Reporting Lab: [place] [facility] [address] [address] Performing Lab: [place] [facility] [address] [address] PSA 1.91 ng/mL 0.00-4.00 Apr 05, 2024 09:12 AM [place] BASIC METABOLIC PANEL (fasting) Specime n Type: SERUM No comment entered. Ordering Provider: ULICES LUCAS Report Released Date/Time: Apr 06, 2023 01:26 PM Reporting Lab: [place] [facility] [place] [address] [address] Performing Lab: [place] [facility] [address] [address] UREA NITROGEN 33 mg/dL H 7-25 GLUCOSE 147 mg/dL H 65-100 SODIUM 140 mmol/L 135-145 POTASSIUM 4.5 mmol/L 3.5-5.0 CHLORIDE 108 mmol/L 100-110 CO2 23 meq/L 20-30 CREATININE, Serum 1.32 mg/dL 0.50-1.40 eGFR(CKD-EPI 2020) 59 mL/min L >60 Apr 05, 2024 09:12 AM [place] LIPID PANEL FASTING Specimen Type: SERUM No comment entered. Ordering Provider: ULICES LUCAS Report Released Date/Time: Apr 06, 2023 01:26 PM Reporting Lab: [facility] [address] [facility] [address] Performing Lab: [address] [address] CHOLESTEROL 134 mg/dL TRIGLYCERIDE 70 mg/dL 0-150 LDL calculated 82 mg/dL 0-129 CHOL/HDL 3.5 HDL CHOLESTEROL 38 mg/dL L 40-60 Apr 05, 2024 09:12 AM [place] LIVER FUNCTION Specimen Type: SERUM No comment entered. Ordering Provider: ULICES LUCAS Report Released Date/Time: Apr 06, 2023 01:26 PM Reporting Lab: [address] [address] Performing Lab: [address] [address] PROTEIN,TOTAL 6.4 g/dL 6.0-8.3 ALBUMIN 4.0 g/dL 3.5-5.0 ALKALINE PHOSPHATASE 60 U/L 40-150 AST 23 U/L 5-34 ALT 23 U/L BILIRUBIN, TOTAL 0.5 mg/dL 0.2-1.2 Apr 05, 2024 09:12 AM [place] CBC AND DIFF (AUTO) Specimen Type: BLOOD No comment entered. Ordering Provider: ULICES LUCAS Report Released Date/Time: Apr 06, 2023 01:26 PM Reporting Lab: [facility] [address] [facility] [address] Performing Lab: [address] [address] WBC 6.99 10*3/uL 4.50-11.00 RBC 5.33 10*6/uL [...] 10*3/uL 0.00-0.00 Apr 05, 2024 09:12 AM [place] HEMOGLOBIN A1C PANEL Specimen Type: BLOOD Comment: [...] Apr 06, 2023 01:26 PM Reporting Lab: [address] [address] Performing Lab: [address] [address] HEMOGLOBIN A1C 6.6 H 4.0-5.6 Social History: Smoking Status (Most current) and Tobacco Use (All prior to encounter date) This section includes the most current, and the historical, smoking and tobacco- related health factors from the [place] facility where the Encounter took place. Current Smoking Status This section includes the most current smoking, or tobacco-related health factor, from the [place] facility where the Encounter took place. Date/Time Current Smoking Status Casi Ebony perez Apr 06, 2023 10:22 AM [place]-TOBACCO NEVER USED [place] [facility] [place] [facility] Advance Directives: All historical and current [...] Apr 06, 2023 ADVANCE DIRECTIVE TRACEE KYLE [facility] Encounter Notes: All associated encounter notes This section contains the clinical notes associated to the Encounter. Date/Time Encounter Note(s) Provider Source Apr 26, 2024 12:33 PM OPTOMETRY NOTE: LOCAL TITLE: OPTOMETRY NOTE STANDARD TITLE: OPTOMETRY NOTE DATE OF NOTE: APR 26, 2024@12:33 ENTRY DATE: APR 26, 2024@12:33:34 AUTHOR: ALPESH PEREZ EXP COSIGNER: ROSCOE MUNOZ URGENCY: STATUS: COMPLETED OPTOMETRY NOTE Has ADDENDA Active problems - Computerized Problem List is the source for the followin. Screening for malignant neoplasm of colon done 2. Exposure to potentially hazardous substance 3. HTN - Hypertension ([facility] [id number]) 4. Erectile Dysfunction ([facility] [id number]) 5. Méndez's esophagus 6. Chronic kidney disease stage 3 7. GERD - Gastro-Esophageal Reflux Disease ([facility] [id number]) 8. Benign Prostatic Hypertrophy without Outflow Obstruction ([facility] [id number]) 9. Diabetes Mellitus Type 2 ([facility] [id number]) 10. Hyperlipidemia ([facility] [id number]) 11. Iron deficiency 12. OA - Osteoarthritis of knee 13. Diabetic polyneuropathy 14. Cognitive impairment 15. History of surgery 16. Tinnitus 17. Hammer toe 18. Allergic Rhinitis ([facility] [id number]) Active Outpatient Medications (including Supplies): Active Non-VA Medications Status 1) Non-VA ATORVASTATIN CALCIUM 40MG TAB 20MG BY MOUTH ACTIVE ONCE DAILY 2) Non-VA CETIRIZINE HCL 10MG TAB 10MG BY MOUTH ONCE ACTIVE DAILY 3) Non-VA DULAGLUTIDE 3MG/0.5ML INJ PEN 3MG ACTIVE SUBCUTANEOUSLY ONCE A WEEK 4) Non-VA FERROUS SULFATE 325MG TAB 325MG BY MOUTH ONCE ACTIVE DAILY 5) Non-VA FISH OIL 1000MG (500MG DHA/EPA) CAP 1000MG BY ACTIVE MOUTH TWICE DAILY 6) Non-VA GLUCOSAMINE/CHONDROITIN CAP/TAB 1500/1200MG BY ACTIVE MOUTH TWICE DAILY 7) Non-VA HYDROCHLOROTHIAZIDE 25MG TAB 25MG BY MOUTH ACTIVE ONCE DAILY 8) Non-VA LISINOPRIL 10MG TAB 10MG BY MOUTH ONCE DAILY ACTIVE 9) Non-VA METFORMIN HCL 1000MG TAB 1000MG BY MOUTH TWICE ACTIVE DAILY 10) Non-VA MULTIVITAMIN/MINERALS CAP/TAB 1 TABLET BY ACTIVE MOUTH ONCE DAILY 11) Non-VA OMEPRAZOLE 20MG EC CAP 20MG BY MOUTH EVERY ACTIVE MORNING 30 MINUTES BEFORE BREAKFAST Allergies: Patient has answered NKA All medications including those prescribed by outside VA's, community providers, and all OTC meds were reviewed and reconciled with patient to the best of their abilities. This 68 year old MALE is seen today for annual DIABETIC CEE RAO: 04/20/23 Chief Complaint: [place] denied any ocular health or vision concerns. Diabetic X 21 years Last A1C:6.6 OHx: 1. Type 2 DM without diabetic retinopathy or macular edema OU 2. Combined forms of cataracts OU 3. RE and Presbyopia OU Ocular Medications: None (-) Pain: (-) ARMENTA: (-) Diplopia: (-) Flashes: (-) Floaters: (-) Amaurosis Fugax/Tia's: (-) Eye Injury: (-) Eye Surgery: (-) TBI FOHx: (-) Glaucoma/ARMD/Blindness VITALS (most recent, as listed in the electronic record): B/P: 135/80 (04/06/2024 11:38) Pulse: 76 (04/06/2024 11:38) Temperature: 97.6 F [36.4 C] (04/06/2024 11:38) Weight: 197 lb [89.36 kg] (04/06/2024 11:38) Height: 72 in [182.9 cm] (04/06/2023 11:35) BMI: BMI: 26.8 PERTINENT LABS: HEMOGLOBIN A1C TREND Collection DT Spec HGBA1c 04/05/2024 09:12 BLOOD 6.6 H 07/06/2023 11:07 BLOOD 6.9 H (-) Smoker/Length of Time/PPD: Current Rx with last BCVA: OD: -3.00 SPH 20/20 OS: -3.00-0.25 x036 20/20 Add:+2.50 20/20 DVA ( )sc ( x )cc - phoropter OD: 20/20 OS: 20/25+2 Pupils: PERRL (-)APD EOMs: SAFE OU, (-)Pain/Diplopia CVF (facial, peripheral): FTFC OU Subjective Refraction: OD: -3.00 SPH OS: -3.00-0.25 x036 Add:+2.50 Final SRx OD: -3.00 SPH OS: -2.75-0.25 x036 Add:+2.50 All the above performed by student, reviewed by attending Anterior segment: Performed by student, repeated by attending Lids: Mild colarettes OD>OS Conj: white and quiet OU Cornea: clear (-)k spindle OU AC: D&Q OU Angles: 4x4 OU Iris: flat and clear (-)NVI/TID OU Lens: 2 NSC OU and 1+-2 mixed cortical changes OD 2 NSC with 1 cortical cataract OS (-)PXF OU Tonometry: Performed by student, reviewed by attending [ x] GAT [ ] iCare OD 15 mmHg OS 13 mmHg Time: 15:10 Fundus exam: Dilated: xxx Non dilated: Dilating Drops: 1GTT 1 % Tropicamide OU & 1GTT 2.5% Phenylephrine OU (Pt. ed. on side effects, dilation warning given and verbal consent obtained) Patient advised not to drive if they feel they have any symptoms which could affect their ability to drive safely. Patient advised not to engage in any activities which could put themselves or others at risk if they feel they have any symptoms which could affect their ability to perform those activities safely. Performed by student, repeated by attending Vit: (+) PVD OU C/D: 0.30 OU pink & healthy rim tissue Macula: flat and clear (-)CSME OU PPole: OD: 1 FSH at sup temp aracde OD OS: clear (-)NVE (-)dot/blot hemorrhage (-)exudates A/V: 2/3 Vessels: normal caliber (-)VB OU Periph: flat and intact (-)NVE, holes, tears, detachments 360 OU Assessment/Plan: 1.Type II Diabetes with mild non-proliferative retinopathy (1 isolated flame- shaped heme) OD and without retinopathy OS and no macular edema OU. Last A1c 6.6 - Pt also has systemic hypertension with lastest BP as 135/80 - Pt ed on today's findings and the possible ocular health and visual complications associated with diabetes as well as importance of attending follow up appts - Encouraged pt to monitor blood sugar and continue taking medications as prescribed by their PCP - Pt ed to call immediately if experiencing any sudden changes in vision - Monitor annually 2. Combined Form Cataracts OU - Pt. ed. on findings - cataracts are not visually significant and that surgery is not necessary at this time - Ed. on importance of UV protection and on symptoms of glare - Continue to monitor 3. Myopia and presbyopia OU - Pt. ed. on todays findings - Ordering duplicate frames for PALs - Monitor Return to Clinic 1yr or earlier PRN Patient Education: Diabetes: Patient was educated regarding diabetes and related ocular complications including retinopathy and cataract formation as well as other related systemic complications. The importance of good blood sugar control, blood sugar testing as recommended by their PCP and the importance of timely follow up were all emphasized. /reggie/ ALPESH PEREZ OPTOMETRY STUDENT Signed: 04/26/2024 16:21 /reggie/ Roscoe Munoz OD CHIEF OF OPTOMETRY Cosigned: 04/27/2024 06:51 04/27/2024 ADDENDUM STATUS: COMPLETED I saw this patient in conjunction with the student and agree with stated findings and plan as noted below after reviewing both the history and repeating godinez elements of the physical exam now. Impression: Diabetes with mild nonproliferative diabetic retinopathy without macular edema right eye characterized by isolated retinal hemorrhage right eye. There is no evidence of diabetic retinopathy or macular edema see left eye. Early nuclear sclerotic and cortical cataracts each eye not visually significant at present. Update glasses today. 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 Plan: Patient education as noted above reviewed exam findings now. Stressed the importance of continued optimize control of blood sugar, blood pressure and cholesterol with healthy lifestyle. Ordered new glasses today. Return in 12 months or sooner if need be. Ophthalmic medication reconciliation: He is currently not taking or prescribed any ocular medications. Medication Reconciliation: Outpatient: Has the patient been taking medications as documented in the EMLR? YES: The patient has been taking medications as documented in the EMLR. Essential Medication List for Review used to complete this medication reconciliation. INCLUDED IN THIS LIST: Alphabetical list of active outpatient prescriptions dispensed from this [facility] (local) and dispensed from another [place] or [facility] facility (remote) as well as inpatient orders (local, pending and active), local clinic medications, locally documented non-VA medications, and local prescriptions that have or been discontinued in the past 90 days. - All changes in medications, including all non-VA/Herbal/OTC medications were entered into CPRS. - If there were any medications the patient should no longer take, they were discontinued. - The patient/caregiver was instructed to update this list, discard old lists, and take this list to the next appointment, whether with a VA or non-VA provider. JLV Link Data on this list may not be complete. Please check JLV. Allergies/ADRs (Tool #5) FACILITY ALLERGY/ADR -------- No Remote Allergy/ADR Data available for this patient [place] [facility] [place] [facility] No Known Allergies Med Recon NoGlossary (Tool #1) INCLUDED IN THIS LIST: Alphabetical list of active outpatient prescriptions dispensed from this VA (local) and dispensed from another VA or [facility] facility (remote) as well as inpatient orders (local pending and active), local clinic medications, locally documented non-VA medications, and local prescriptions that have or been discontinued in the past 90 days. Non-VA Meds Last Documented On: Apr 06, 2023 NOTE The display of VA prescriptions dispensed from another VA or [facility] facility (remote) is limited to active outpatient prescription entries matched to National Drug File at the originating site and may not include some items such as investigational drugs, compounds, etc. NOT INCLUDED IN THIS LIST: Medications self-entered by the patient into personal health records (i.e. [employer]) are NOT included in this list. Non-VA medications documented outside this [place], remote inpatient orders (regardless of status) and remote clinic medications are NOT included in this list. The patient and provider must always discuss medications the patient is taking, regardless of where the medication was dispensed or obtained. Non-VA ATORVASTATIN CALCIUM 40MG TAB TAKE ONE-HALF TABLET BY MOUTH ONCE DAILY Patient wants to buy from Non-VA pharmacy. Medication prescribed by Non-VA provider. Indication: FOR HIGH CHOLESTEROL Non-VA CETIRIZINE HCL 10MG TAB TAKE ONE TABLET BY MOUTH ONCE DAILY Patient wants to buy from Non-VA pharmacy. Medication prescribed by Non-VA provider. Indication: FOR ALLERGIES Non-VA DULAGLUTIDE 3MG/0.5ML INJ PEN INJECT 3MG SUBCUTANEOUSLY ONCE A WEEK Patient wants to buy from Non-VA pharmacy. Medication prescribed by Non-VA provider. Indication: FOR TYPE 2 DIABETES MELLITUS Non-VA FERROUS SULFATE 325MG TAB TAKE ONE TABLET BY MOUTH ONCE DAILY Patient wants to buy from Non-VA pharmacy. Medication prescribed by Non-VA provider. Indication: TO SUPPLEMENT IRON Non-VA FISH OIL 1000MG (500MG DHA/EPA) CAP TAKE 1 CAPSULE BY MOUTH TWICE DAILY Patient wants to buy from Non-VA pharmacy. Medication prescribed by Non-VA provider. Indication: TO REDUCE TRIGLYCERIDES Non-VA GLUCOSAMINE/CHONDROITIN CAP/TAB TAKE 1500/1200MG BY MOUTH TWICE DAILY Patient wants to buy from Non-VA pharmacy. Medication prescribed by Non-VA provider. Indication: OA Non-VA HYDROCHLOROTHIAZIDE 25MG TAB TAKE ONE TABLET BY MOUTH ONCE DAILY Patient wants to buy from Non-VA pharmacy. Medication prescribed by Non-VA provider. Indication: FOR HIGH BLOOD PRESSURE Non-VA LISINOPRIL 10MG TAB TAKE ONE TABLET BY MOUTH ONCE DAILY Patient wants to buy from Non-VA pharmacy. Medication prescribed by Non-VA provider. Indication: FOR HIGH BLOOD PRESSURE Non-VA METFORMIN HCL 1000MG TAB TAKE ONE TABLET BY MOUTH TWICE DAILY Patient wants to buy from Non-VA pharmacy. Medication prescribed by Non-VA provider. Indication: FOR TYPE 2 DIABETES MELLITUS Non-VA MULTIVITAMIN/MINERALS CAP/TAB TAKE ONE TABLET BY MOUTH ONCE DAILY Patient wants to buy from Non-VA pharmacy. Medication prescribed by Non-VA provider. Indication: FOR VITAMIN SUPPLEMENTATION Non-VA OMEPRAZOLE 20MG EC CAP TAKE 1 CAPSULE BY MOUTH EVERY MORNING 30 MINUTES BEFORE BREAKFAST Patient wants to buy from Non-VA pharmacy. Medication prescribed by Non-VA provider. Indication: FOR HEARTBURN OUTPT SILDENAFIL CITRATE 50MG TAB (Status = ) TAKE ONE TABLET BY MOUTH ONCE DAILY NEEDED TAKE 1 HOUR PRIOR TO SEXUAL ACTIVITY Rx# [id number] Last Released: 04/07/24 Qty/Days Supply: 01/16 Rx Expiration Date: 04/11/24 Refills Remainin Indication: FOR ERECTILE DYSFUNCTION SUPPLIES Declines printed copy of medication list now. /reggie/ Roscoe Munoz OD CHIEF OF OPTOMETRY Signed: 04/27/2024 06:54 ALPESH PEREZ [place] [facility] [place] [facility]
--- OUTSIDE RECORDS SUMMARY | 2024-06-29 15:40 | XMS_ITS | Patient Health Record ---
Author Organization [facility] René Michaelsley Address [address] [facility] [place] [address] Care Team Providers Care Fisher Gill Net Name Role Phone Giovanni Choe Primary Care Provider Unav ailable Maurizio Rivas Unavailable [phone] Allergies No Known Allergies Results Component Value Reference Range Notes HEMOGLOBIN A1C (GLYCOHEMOGLO BIN) Reviewed date:02/05/2024 09:57:29 AM Interpretation: Performing Lab: Notes/Report: HEMOGLOBIN A1C (HH) 6.3 Reason For Referral No Information Medications Medication SIG (Take, Route, Frequency, Duration) Notes Start Date End Date Status Cetirizine HCl 10 MG 1 tablet Orally Onc e a day for 30 day(s) 01/25/2024 Active Ferrous Sulfate 325 (65 Fe) MG 1 tablet Orally Three times a Week for 30 day(s) 01/25/2024 Active Ammonium Lactate 12 % 1 application Externally Twice a day for 30 days Active Trulicity 3 MG/0.5ML as directed Subcutaneous Active Fiber 625 MG 2 tablets as needed Orally Three times a day 01/25/2024 Active Lisinopril 5 MG 1 tablet Orally Once a day Active Multivitamin - 1 tablet Orally Once a day for 30 day(s) 01/25/2024 Active metFORMIN HCl 1000 MG 1 tablet with meal s Orally Twice a day Active Iahczf-Eaznfxvin-FJP Complex - as directed Orally 01/25/2024 Active hydroCHLOROthiazide 25 MG 1 tablet in th e morning Orally Three times a Week Active Pentoxifylline ER 400 MG TAKE ONE TABLET BY MOUTH TWICE A DAY Oral for 90 Active Tamsulosin HCl 0.4 MG Oral for 90 Active Fish Oil 1000 MG 1 capsule Orally Onc e a day 12/25/2016 Unknown Vitamin E 450 MG (1000 UT) TAKE ONE CAPS ULE BY MOUTH EVERY DAY Oral for 90 Active Aspirin 81 MG 1 tablet Orally Once a day Unknown Omeprazole 20 MG TAKE ONE CAPSULE BY MOUTH EVERY DAY IN THE MORNING Oral for 90 Active Simvastatin 20 MG 1 tablet in the evening Orally Once a day Unknown Atorvastatin Calcium 20 MG TAKE 1 TABLET DAILY Oral for 90 Active glyBURIDE 1.25 MG 1 tablet with breakfast or the first main meal of the day Orally Once a day Unknown Sildenafil Citrate 25 MG TAKE 1 TABLET B Y MOUTH ONCE A DAY 30 MINUTES TO 4 HOURS BEFORE SEXUAL ACTIVITY NEEDED Oral for 14 Active Immunizations Vaccine Route Administration Date Status Comme nts Influenza Unknown 04/30/2016 Administered Social History Tobacco Use: Social History Observation [...] W/U Status Risk Notes Problem Plantar wart (40895412) Plantar wart (B07.0) Active confirmed Problem Type 2 diabetes mellitus without complication (361049990) Type 2 diabetes mellitus without complication (E11.9) Active confirmed Vital Signs Height 6ft 1 in in 02/05/2024 Weight 195 lbs lbs 02/05/2024 BMI 25.72 kg/m2 02/05/2024 Procedures Procedure Date Ordered Date Performed Result Body Sit e 97397-Mbot Destruction, 1-14 02/05/2024 N/A Encounters Encounter Location Date Provider Diagnosis [facility] [address] [place] [address] 02/05/2024 Maurizio Rivas Plantar wart B07.0 ; [...] complication (ICD-10 - E11.9) Plan Of Treatment Pending Test Test Name Order Date 99289-Kodb Destruction, -02/05/2024 Insurance Providers Payer Name Payer Address Payer Phone Subscriber Number Group Number Insured Name Patient Relationship to Insured Coverage Start Date Coverage End Date Medicare National [employer] [address] [place] [address] [id number] Michael Maritnez Self - patient is the insured for Life [address] [place] [address] [id number] Michael Martinez Self - patient is the insured Medical (General) History Medical History History ICD Code Diabetic Mumps Chicken pox Joint implants/screws Arthritis Back,Hip,and Knee pain Broken bones Diverticulosis Headaches/Migraines Numbness/neuropathy sinusitis Surgical History Surgery Date(Month/Year) wrist surgery (left) knee surgery, left ACL shoulder dislocation tonsillectomy deviated septum repair hernia hammer toe- 2nd toe left foot abdominal surgery- l duprytren's fracture Toe surdgery, Left foot 2016
--- OUTSIDE RECORDS SUMMARY | 2024-06-29 15:40 | XMS_ITS | Encounter Summary ---
Author Name [facility] [facility] [place] Address [address] [place] [address] Care Team Providers Care Shore Working Supervisor Name Role Phone ULICES MARIA Primary Care [...] PART A Oct 18, 2021 PART A [id number] [facility] SIMBA KIDD PATIENT MEDICARE (WNR) MEDICARE (M) PART B Oct 18, 2021 PART B [id number] [facility] SIMBA KIDD PATIENT FOR LIFE TFL* Oct 18, 2021 [id number] SIMBA KIDD PATIENT [facility] (WNR) TRICA RE(WN R) November 17, 2016 ([facility]) [id number] SIMBA KIDD JJ PATIENT Selected Encounter This section includes the information on record at [place] for the Encounter. Date/Time Encounter Type Encounter Description Reason Provider Source Apr 27, 2024 08:12 AM FIT SPECTACLES MULTIFOCAL OPTOMETRY ICD-10-CM Z46.0 Encounter for fit/adjst of spectacles and contact lenses MELIA MUNOZ IHShahid Encounter Template Text not used by [facility] Assessments - Encounter Diagnoses This section includes the primary and secondary diagnoses documented for the Encounter. Date/Time Primary/Secondary Diagnosis Diagnosis Name Provider Source Apr 27, 2024 08:12 AM PRIMARY Encounter for fit/adjst of spectacles and contact lenses ROMMEL BOLIVAR [facility] Lab Results: +/- 30 days of the encounter This section includes the Chemistry and Hematology Lab Results on record with [place] for the patient. Radiology Reports and Pathology Reports are provided separately, in subsequent sections. Lab Results This section contains the Chemistry/Hematology Results that were resulted 30 days before or 30 daysafter the date of the Encounter. Date/Time Source Result Type Result - Unit Interpretation Reference Range Comment Apr 05, 2024 09:22 AM [facility] MICROALBUMIN CREATININE RATIO PANEL Spe cimen Type: URINE No comment entered. Ordering Provider: ULICES LUCAS Report Released Date/Time: Apr 06, 2023 01:26 PM Reporting Lab: [facility] [address] [facility] [address] Performing Lab: [facility] [address] [facility] [address] MICROALBUMIN/C REATININE RATIO 4.7 mg/g 0-29.9 MICROALBUMIN,Q UANTITATIVE 0.9 mg/dL RR UNAVAIL CREATININE URINE 190.74 mg/dL Apr 05, 2024 09:22 AM [facility] URINALYSIS Specimen Type: URINE Comment: If Glucose = >500 and Ketones are positive, please alert the Physician. Ordering Provider: ULICES LUCAS Report Released Date/Time: Apr 06, 2023 01:26 PM Reporting Lab: [facility] [address] [facility] [address] Performing Lab: [facility] [place] [address] UA COLOR Yellow Yellow UA APPEARANCE Clear Clear UA GLUCOSE Normal mg/dL Negative UA KETONES NEGATIVE mg/dL Negative UA BLOOD NEGATIVE mg/dL Negative UA PROTEIN 10 mg/dL Negative UA NITRITE NEGATIVE mg/dL Negative UA BILIRUBIN NEGATIVE mg/dL Negative UA SPECIFIC GRAVITY 1.030 H 1.016-1.022 UA pH 5.5 5.0-9.0 UA UROBILINOGEN Normal mg/dL <2.0 UA LEUKOCYTE NEGATIVE Negative Apr 05, 2024 09:12 AM [facility] TSH Specimen Type: SERUM No comment entered. Ordering Provider: ULICES LUCAS Report Released Date/Time: Apr 06, 2023 01:26 PM Reporting Lab: [address] [address] Performing Lab: [address] [address] TSH 2.71 u[IU]/mL 0.35-5.00 Apr 05, 2024 09:12 AM [facility] VITAMIN D (25-OH) Specimen Type: SERUM No comment entered. Ordering Provider: ULICES LUCAS Report Released Date/Time: Apr 06, 2023 01:26 PM Reporting Lab: [address] [address] Performing Lab: [address] [address] VITAMIN D (25-OH) 31 ng/mL 20-50 Apr 05, 2024 09:12 AM [facility] FERRITIN Specimen Type: SERUM No comment entered. Ordering Provider: ULICES LUCAS Report Released Date/Time: Apr 06, 2023 01:26 PM Reporting Lab: [address] [address] Performing Lab: [address] [address] FERRITIN 25 ng/mL 20-300 Apr 05, 2024 09:12 AM [facility] IRON & TIBC PANEL Specimen Type: SERUM No comment entered. Ordering Provider: ULICES LUCAS Report Released Date/Time: Apr 06, 2023 01:26 PM Reporting Lab: [address] [address] Performing Lab: [address] [address] TIBC 350 ug/dL 204-475 IRON 63 ug/dL 40-160 Transferrin Saturation 18.0 L 20.0-50.0 Transferrin (TRF) 265 mg/dL 200-360 Apr 05, 2024 09:12 AM [facility] PSA Specimen Type: SERUM No comment entered. Ordering Provider: ULICES LUCAS Report Released Date/Time: Apr 06, 2023 01:26 PM Reporting Lab: [address] [address] Performing Lab: [address] [address] PSA 1.91 ng/mL 0.00-4.00 Apr 05, 2024 09:12 AM [facility] BASIC METABOLIC PANEL (fasting) Specime n Type: SERUM No comment entered. Ordering Provider: ULICES LUCAS Report Released Date/Time: Apr 06, 2023 01:26 PM Reporting Lab: [address] [address] Performing Lab: [address] [address] UREA NITROGEN 33 mg/dL H 7-25 GLUCOSE 147 mg/dL H 65-100 SODIUM 140 mmol/L 135-145 POTASSIUM 4.5 mmol/L 3.5-5.0 CHLORIDE 108 mmol/L 100-110 CO2 23 meq/L 20-30 CREATININE, Serum 1.32 mg/dL 0.50-1.40 eGFR(CKD-EPI 2020) 59 mL/min L >60 Apr 05, 2024 09:12 AM [facility] LIPID PANEL FASTING Specimen Type: SERUM No comment entered. Ordering Provider: ULICES LUCAS Report Released Date/Time: Apr 06, 2023 01:26 PM Reporting Lab: [address] [address] Performing Lab: [address] [address] CHOLESTEROL 134 mg/dL TRIGLYCERIDE 70 mg/dL 0-150 LDL calculated 82 mg/dL 0-129 CHOL/HDL 3.5 HDL CHOLESTEROL 38 mg/dL L 40-60 Apr 05, 2024 09:12 AM [facility] LIVER FUNCTION Specimen Type: SERUM No comment entered. Ordering Provider: ULICES LUCAS Report Released Date/Time: Apr 06, 2023 01:26 PM Reporting Lab: [address] [address] Performing Lab: [address] [address] PROTEIN,TOTAL 6.4 g/dL 6.0-8.3 ALBUMIN 4.0 g/dL 3.5-5.0 ALKALINE PHOSPHATASE 60 U/L 40-150 AST 23 U/L 5-34 ALT 23 U/L BILIRUBIN, TOTAL 0.5 mg/dL 0.2-1.2 Apr 05, 2024 09:12 AM [facility] CBC AND DIFF (AUTO) Specimen Type: BLOOD No comment entered. Ordering Provider: ULICES LUCAS Report Released Date/Time: Apr 06, 2023 01:26 PM Reporting Lab: [address] [address] Performing Lab: [address] [address] WBC 6.99 10*3/uL 4.50-11.00 RBC 5.33 10*6/uL [...] 10*3/uL 0.00-0.00 Apr 05, 2024 09:12 AM [facility] HEMOGLOBIN A1C PANEL Specimen Type: BLOOD Comment: [...] 06, 2023 01:26 PM Reporting Lab: [address] [address] Performing Lab: [address] [address] HEMOGLOBIN A1C 6.6 H 4.0-5.6 Social History: Smoking Status (Most current) and Tobacco Use (All prior to encounter date) This section includes the most current, and the historical, smoking and tobacco- related health factors from the [place] facility where the Encounter took place. Current Smoking Status This section includes the most current smoking, or tobacco-related health factor, from the [place] facility where the Encounter took place. Date/Time Current Smoking Status Comment Ebony perez Apr 06, 2023 10:22 AM [place]-TOBACCO NEVER USED [facility] [place] [facility] Advance Directives: All historical and current Section Date Range: From patient's date of to the date document was created. This section includes ALL of a patient's completed or amended VA Advance and Rescinded Directives. The entries below indicate that a directive exists for the patient, but an actual copy is not included with this document. The data comes from all [place] facilities. Date Advance Directives Provider Source Apr 06, 2023 ADVANCE DIRECTIVE TRACEE KYLE [facility] Encounter Notes: All associated encounter notes This section contains the clinical notes associated to the Encounter. Date/Time Encounter Note(s) Provider Source Apr 27, 2024 08:12 AM OPTOMETRY NOTE: LOCAL TITLE: OPTOMETRY NOTE STANDARD TITLE: OPTOMETRY NOTE DATE OF NOTE: APR 27, 2024@08:12 ENTRY DATE: APR 27, 2024@08:12:15 AUTHOR: VERENICE BHATT EXP COSIGNER: URGENCY: STATUS: COMPLETED OPTOMETRY NOTE Has ADDENDA The quote provided below is for informational purposes only. Please verify prior to the creation of a purchase order. [facility] [id number] RX INFORMATION OD -3.00 0.00 X Add:+2.50 Pzm:0.00 Dir: Prz2:0.00 Dir2: OS -2.75 -0.25 X36 Add:+2.50 Pzm:0.00 Dir: Prz2:0.00 Dir2: FITTING INFORMATION FPD: NPD: [place]:R:33.5 L:32.0 SEG HT:R:27 L:27 Tint:None Shade:None VA Billable Items FRAME: KRYSTAL CASE IRMA [id number] Right Lens: POLY [facility] PROGRESSIVE PHOTOCHROMIC [place] 1.586 POLY Left Lens: POLY [facility] PROGRESSIVE PHOTOCHROMIC [place] 1.586 POLY CLIN items 0004 - Progressive - Glass Plastic Poly 0005 - Transition /reggie/ VERENICE BHATT EXTENSION WORK DIRECTOR Signed: 04/27/2024 08:12 Receipt Acknowledged By: 04/27/2024 08:15 /reggie/ Rommel Bolivar LPN Licensed Practical Nurse 04/27/2024 ADDENDUM STATUS: COMPLETED 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 OPT HT entered consult(s) as requested for provider signature. /reggie/ Rommel Bolivar LPN Licensed Practical Nurse Signed: 04/27/2024 08:16 [facility]ATTRL [facility]
--- OUTSIDE RECORDS SUMMARY | 2024-06-29 15:40 | XMS_ITS | Encounter Summary ---
Author Name [facility] Address [address] [place] [address] Care Team Providers Care Technical Sales Representative Name Role Phone ULICES MARIA Primary Care [...] PART A Oct 18, 2021 PART A [id number] [facility] SIMBA KIDD PATIENT MEDICARE (WNR) MEDICARE (M) PART B Oct 18, 2021 PART B [id number] [facility] SIMBA KIDD PATIENT FOR LIFE TFL* Oct 18, 2021 [id number] SIMBA KIDD PATIENT [facility] (WNR) TRICA RE(WN R) November 17, 2016 (WNR) [id number] SIMBA KIDDNE PATIENT Selected Encounter This section includes the information on record at [place] for the Encounter. Date/Time Encounter Type Encounter Description Reason Pro vider Source May 18, 2024 04:29 PM Outpatient Encounter PRIMARY CARE/MEDICINE IHE Encounter Template Text not used by [place] Social History: Smoking Status (Most current) and [...] 06, 2023 10:22 AM [place]-TOBACCO [place] USED [place] [facility] [place] [facility] Advance Directives: All historical and current [...] Apr 06, 2023 ADVANCE DIRECTIVE TRACEE KYLE [facility] Encounter Notes: All associated encounter notes This section contains the clinical notes associated to the Encounter. Date/Time Encounter Note(s) Provider Source May 18, 2024 04:29 PM MEDICATION MGT NOT E: LOCAL TITLE: OUTPATIENT MEDICATION REQUEST STANDARD TITLE: MEDICATION MGT NOTE DATE OF NOTE: MAY 18, 2024@16:29 ENTRY DATE: MAY 18, 2024@16:29:13 AUTHOR: TRACEE KYLE EXP COSIGNER: URGENCY: STATUS: COMPLETED Medication Request Date of Request: Apr Is this a New Medication? No PLEASE RENEW AND MAIL SILDENAFIL TAB 50MG Instructions: 50MG ORAL DAILY PRN Sig: TAKE ONE TABLET BY MOUTH ONCE DAILY NEEDED TAKE 1 HOUR PRIOR TO SEXUAL ACTIVITY /reggie/ TRACEE KYLE LPN LPN Signed: 05/18/2024 16:30 Receipt Acknowledged By: 05/18/2024 16:34 /reggie/ ULICES MARIA MD PHYSICIAN TRACEE KYLE
== END 2024-06-27 14:07 | disposition home or self-care (01) ==
PROVIDERS: PCP Nurse Practitioner Family; Visit Provider Urology
DX: N40.0 Benign prostatic hyperplasia without lower urinary tract symptoms (principal); N48.6 Induration penis plastica; Z13.9 Encounter for screening, unspecified
CPT/HCPCS: 99214

== ENCOUNTER → 2024-06-27 13:11 | Outpatient (BNVA) | payer MEDICARE, OTHER, SELFPAY | PROVIDERS: PCP Nurse Practitioner Family; Visit Provider Urology | DX: N40.0 Benign prostatic hyperplasia without lower urinary tract symptoms (principal); N48.6 Induration penis plastica | CPT/HCPCS: 51798; 81003; 99212 ==

== ENCOUNTER 2024-07-07 15:19 | Outpatient (AMB) | payer MEDICARE, OTHER, SELFPAY ==
--- OUTSIDE RECORDS SUMMARY | 2024-07-07 15:21 | XMS_ITS | Continuity of Care Document ---
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 It does not include entries that were removed or entered in error. Problem Status Onset Date Problem Type Date of Resolution Comments Source Allergic Rhinitis [facility] [id number] Active Condition Apr 09, 2024 Entered By: GERRI ORNELAS Comment: Repeat EGD due 12/2024 [facility] Benign Prostatic Hypertrophy without Outflow Obstruction ([facility] [id number][facility] Active Condition [facility] Chronic kidney disease stage 3 Active Condition Apr 06, 2024 Entered By: RICK BONILLA Comment: eGFR 59 in APR 12 [facility] Cognitive impairment Active Condition [facility] Diabetes Mellitus Type 2 ([facility] [id number]) Active Condition [facility] Diabetic polyneuropathy Active Condition [facility] Erectile Dysfunction ([facility] 307039978) Active Condition [facility] Exposure to potentially hazardous substance Active Condition Oct 06, 2023 Entered By: AIMEE HERRERA Comment: Connect Snomed Code to ICD 10 Code refer to note dated 04/06/2023 [facility] GERD - Gastro-Esophageal Reflux Disease ([facility] [id number]) [facility] Hammer toe Active Condition Apr 06 023 Entered By: ULICES PAZ Comment: b/l [facility] History of surgery Active Condition Apr 06, 2023 Entered By: ULICES PAZ Comment: Foot surgerySep 2022 Entered By: ULICES PAZ Comment: Left knee surgerySep 2022 Entered By: ULICES PAZ Comment: Nasal surgerySep 2022 Entered By: ULICES PAZ Comment: Right inguinal hernia repairSep 2022 Entered By: ULICES PAZ Comment: Shoulder surgerySep 2022 Entered By: ULICES PAZ Comment: Tonsillectomy tonsillectomy [facility] HTN - Hypertension ([facility] [id number]) Active Condition [facility] Hyperlipidemia ([facility] 86463417) [place] Iron deficiency Active Condition [facility] OA - Osteoarthritis of knee Active Condition Apr 06, 2023 Entered By: ULICES PAZ Comment: Patellofemoral arthritis of left knee [facility] Screening for malignant neoplasm of colon done Active Condition Apr 06, 2024 Entered By: RICK BONILLA Comment: Lasst Screen Colonoscopy approx 2018; Neg CRC or PolyposisSep 2023 Entered By: RICK BONILLA Comment: Done [place] [facility] Tinnitus Active Condition [facility] Diagnosis: ICD-10-CM Z46.0 Encounter for fit/adjst of spectacles and contact lenses Active Diagnosis [facility] Diagnosis: ICD-10-CM 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, r eye Active Diagnosis [facility] Diagnosis: ICD-10-CM E11.9 Type 2 diabetes mellitus without complications Active Diagnosis [facility] Diagnosis: ICD-10-CM Z46.1 Encounter for fitting and adjustment of hearing aid Active Diagnosis [facility] Diagnosis: ICD-10-CM Z23 Encounter for immunization Active Diagnosis [facility] Diagnosis: ICD-10-CM H90.3 Sensorineural hearing loss, bilateral Active Diagnosis [facility] Diagnosis: ICD-10-CM I10 Essential (primary) hypertension Active Diagnosis [facility] Medications Combined list of outpatient medications from [...] ONCE DAILY ORAL ACTIVE ULICES CORNELIUS 2022 [facility] IELD CETIRIZINE HCL 10MG TAB TAKE ONE [...] MOUTH TWICE DAILY ORAL ACTIVE SHAZIA LOVETT PROVIAN 2022 IELD HYDROCHLORO THIAZIDE 25MG TAB TAKE [...] PRIOR TO SEXUAL ACTIVITY ORAL ACTIVE 05/19/2025 [id number] SHAZIA LOVETT PROIVAN 10/30/ 2024 18 [place] SILDENAFIL CITRATE 50MG TAB TAKE ONE TABLET BY MOUTH ONCE DAILY NEEDED TAKE 1 HOUR PRIOR TO SEXUAL ACTIVITY ORAL DISCONT INUED 04/11/2024 [id number] ULICES CORNELIUS 2022 6 [place] Immunizations Combined list of available immunizations from the Department of Defense and Veterans Affairs facilities. Immunization Series Date Given Administered By Site Reaction Lot Number CVX Code Drug Commissioning Specialist Status Comments Source INFLUENZA, HIGH-DOSE, TRIVALENT, PF 2023 MIMA VERONICA LEFT DELTO ID [id number] 135 complet ed [facility] IELD ZOSTER RECOMBINANT 2022 JADAPETRGÉNESIS Luis A RIGHT DELTO ID [id number] 187 complet ed [place] ZOST[place] RECOMBINANT 2022 JAIME KYLE RIGHT DELTO ID [id number] 187 complet ed [facility] INFLUENZA, HIGH-DOSE, QUADRIVALENT 2022 JAIME KYLE LEFT DELTO ID [id number] 197 complet ed [facility] COVID-19 (MODERNA), MRNA, LNP-S, BIVALENT, PF, 50 MCG/0.5 ML OR 25MCG/0.25 ML DOSE 1 2021 229 complet ed [facility] COVID-19 (MODERNA), MRNA, LNP-S, PF, 100 MCG/0.5ML DOSE OR 50 MCG/0.25ML DOSE 2021 207 complet ed [facility] COVID-19 (MODERNA), MRNA, LNP-S, PF, 100 MCG/0.5ML DOSE OR 50 MCG/0.25ML DOSE 3 2020 207 complet ed [facility] COVID-19 (MODERNA), MRNA, LNP-S, PF, 100 MCG/0.5ML DOSE OR 50 MCG/0.25ML DOSE 2 2020 207 complet ed [facility] COVID-19 (MODERNA), MRNA, LNP-S, [...] Apr 06, 2023 01:26 PM Reporting Lab: [address] [address] Performing Lab: [facility] [address] [place] MICROALB UMIN CREATINI NE RATIO PANEL MICROALBUM IN [MASS/VOLU ME] IN URINE 0.9 mg/dL 04/05 Specimen Type: URINE No comment entered. Ordering Provider: SLOANE ALANIS Report Released Date/Time: Apr 06, 2023 01:26 PM Reporting Lab: [facility] MASSUSE[address] [address] Performing Lab: [facility] [address] [place] MICROALB UMIN CREATINI NE RATIO PANEL CREATININE [MASS/VOLU ME] IN URINE 190.74 mg/dL 04/05 Specimen Type: URINE No comment entered. Ordering Provider: SLOANE ALANIS Report Released Date/Time: Apr 06, 2023 01:26 PM Reporting Lab: [facility] [address] [address] Performing Lab: [address] [address] [place] URINALYS IS COLOR OF URINE Yellow 04/05 Specimen Type: URINE Comment: If Glucose = >500 and Ketones are positive, please alert the Physician. Ordering Provider: SLOANE ALANIS Report Released Date/Time: Apr 06, 2023 01:26 PM Reporting Lab: [address] [address] Performing Lab: [address] [address] [place] URINALYS IS APPEARANCE OF URINE Clear 04/05 Specimen Type: URINE Comment: If Glucose = >500 and Ketones are positive, please alert the Physician. Ordering Provider: SLOANE ALANIS Report Released Date/Time: Apr 06, 2023 01:26 PM Reporting Lab: [address] [address] Performing Lab: [address] [address] [place] URINALYS IS GLUCOSE [MASS/VOLU ME] IN URINE Normalmg /dL 04/05 Specimen Type: URINE Comment: If Glucose = >500 and Ketones are positive, please alert the Physician. Ordering Provider: SLOANE ALANIS Report Released Date/Time: Apr 06, 2023 01:26 PM Reporting Lab: [address] [address] Performing Lab: [address] [address] [place] URINALYS IS KETONES [MASS/VOLU ME] IN URINE BY TEST STRIP NEGATIVE mg/dL 04/05 Specimen Type: URINE Comment: If Glucose = >500 and Ketones are positive, please alert the Physician. Ordering Provider: SLOANE ALANIS Report Released Date/Time: Apr 06, 2023 01:26 PM Reporting Lab: [facility] [address] [facility] [address] Performing Lab: [facility] [address] [facility] [facility] [address] [place] URINALYS IS ERYTHROCYT ES [PRESENCE] IN URINE SEDIMENT BY LIGHT MICROSCOPY NEGATIVE mg/dL 04/05 Specimen Type: URINE Comment: If Glucose = >500 and Ketones are positive, please alert the Physician. Ordering Provider: SLOANE ALANIS Report Released Date/Time: Apr 06, 2023 01:26 PM Reporting Lab: [facility] [address] [facility] [address] Performing Lab: [address] [address] [place] URINALYS IS PROTEIN [MASS/VOLU ME] IN URINE BY TEST STRIP 10 mg/dL 04/05 Specimen Type: URINE Comment: If Glucose = >500 and Ketones are positive, please alert the Physician. Ordering Provider: SLOANE ALANIS Report Released Date/Time: Apr 06, 2023 01:26 PM Reporting Lab: [facility] [address] [facility] [address] Performing Lab: [address] [address] [place] URINALYS IS NITRITE [PRESENCE] IN URINE NEGATIVE mg/dL 04/05 Specimen Type: URINE Comment: If Glucose = >500 and Ketones are positive, please alert the Physician. Ordering Provider: SLOANE ALANIS Report Released Date/Time: Apr 06, 2023 01:26 PM Reporting Lab: [address] [address] Performing Lab: [address] [address] [place] URINALYS IS BILIRUBIN. TOTAL [PRESENCE] IN URINE NEGATIVE mg/dL 04/05 Specimen Type: URINE Comment: If Glucose = >500 and Ketones are positive, please alert the Physician. Ordering Provider: SLOANE ALANIS Report Released Date/Time: Apr 06, 2023 01:26 PM Reporting Lab: [address] [address] Performing Lab: [address] [address] [place] URINALYS IS SPECIFIC GRAVITY OF URINE BY REFRACTOME TRY 1.030 1.016 - 1.022 04/05 H Specimen Type: URINE Comment: If Glucose = >500 and Ketones are positive, please alert the Physician. Ordering Provider: SLOANE ALANIS Report Released Date/Time: Apr 06, 2023 01:26 PM Reporting Lab: [address] [address] Performing Lab: [place] [address] [place] URINALYS IS PH OF URINE BY TEST STRIP 5.5 5.0 - 9.0 04/05 Specimen Type: URINE Comment: If Glucose = >500 and Ketones are positive, please alert the Physician. Ordering Provider: SLOANE ALANIS Report Released Date/Time: Apr 06, 2023 01:26 PM Reporting Lab: [address] [address] Performing Lab: [address] [address] [place] URINALYS IS UROBILINOG EN [MASS/VOLU ME] IN URINE BY TEST STRIP Normalmg /dL <2.0 - 2.0 04/05 Specimen Type: URINE Comment: If Glucose = >500 and Ketones are positive, please alert the Physician. Ordering Provider: SLOANE ALANIS Report Released Date/Time: Apr 06, 2023 01:26 PM Reporting Lab: [address] [address] Performing Lab: [facility] [place] [facility] [address] [facility] [address] [place] URINALYS IS LEUKOCYTE ESTERASE [PRESENCE] IN URINE BY TEST STRIP NEGATIVE 04/05 Specimen Type: URINE Comment: If Glucose = >500 and Ketones are positive, please alert the Physician. Ordering Provider: SLOANE ALANIS Report Released Date/Time: Apr 06, 2023 01:26 PM Reporting Lab: [facility] [place] [address] [address] Performing Lab: [facility] [address] [address] [place] TSH THYROTROPI N [UNITS/VOL UME] IN SERUM OR PLASMA 2.71 u[IU]/mL 0.35 - 5.00 04/05 Specimen Type: SERUM No comment entered. Ordering Provider: SLOANE ALANIS Report Released Date/Time: Apr 06, 2023 01:26 PM Reporting Lab: [facility]RL [facility]N [facility]ITAL[facility] [address] [address] Performing Lab: [facility]ITALUSE[address] [address] [place] VITAMIN D (25-OH) 25-HYDROXY VITAMIN D3 [MASS/VOLU ME] IN SERUM OR PLASMA 31 ng/mL 20 - 50 04/05 Specimen Type: SERUM No comment entered. Ordering Provider: SLOANE ALANIS Report Released Date/Time: Apr 06, 2023 01:26 PM Reporting Lab: [facility] [place] [address] [address] Performing Lab: [facility]ITALRSHEL[facility]ERN [facility]ITALUSETS [address] [address] [place] FERRITIN FERRITIN [MASS/VOLU ME] IN SERUM OR PLASMA 25 ng/mL 20 - 300 04/05 Specimen Type: SERUM No comment entered. Ordering Provider: SLOANE ALANIS Report Released Date/Time: Apr 06, 2023 01:26 PM Reporting Lab: [place] [facility] [place] [facility] [address] [facility] [address] Performing Lab: [place] [facility] [place] [place] [facility] [address] [facility] [address] [place] IRON & TIBC PANEL IRON BINDING CAPACITY [MASS/VOLU ME] IN SERUM OR PLASMA 350 ug/dL 204 - 475 04/05 Specimen Type: SERUM No comment entered. Ordering Provider: SLOANE ALANIS Report Released Date/Time: Apr 06, 2023 01:26 PM Reporting Lab: [facility] [place] [facility] [address] [facility] [address] Performing Lab: [facility] [address] [address] [place] IRON & TIBC PANEL IRON [MASS/VOLU ME] IN SERUM OR PLASMA 63 ug/dL 40 - 160 04/05 Specimen Type: SERUM No comment entered. Ordering Provider: SLOANE ALANIS Report Released Date/Time: Apr 06, 2023 01:26 PM Reporting Lab: [facility] [place] [place] [address] [address] Performing Lab: [place] [facility]N [facility]ITAL[facility] [address] [address] [place] IRON & TIBC PANEL IRON/IRON BINDING CAPACITY.T OTAL [MASS RATIO] IN SERUM OR PLASMA 18.0 20.0 - 50.0 04/05 L Specimen Type: SERUM No comment entered. Ordering Provider: SLOANE ALANIS Report Released Date/Time: Apr 06, 2023 01:26 PM Reporting Lab: [facility] [place] [place] [address] [address] Performing Lab: [facility] [place] [place] [address] [address] [place] IRON & TIBC PANEL TRANSFERRI N [MASS/VOLU ME] IN SERUM OR PLASMA 265 mg/dL 200 - 360 04/05 Specimen Type: SERUM No comment entered. Ordering Provider: SLOANE ALANIS Report Released Date/Time: Apr 06, 2023 01:26 PM Reporting Lab: [facility]ITALRSHEL[facility]ERN [facility] [address] [facility] [address] Performing Lab: [facility]ITALRSHEL[facility]ERN [facility] [address] [facility] [address] [place] PSA PROSTATE SPECIFIC AG [MASS/VOLU ME] IN SERUM OR PLASMA 1.91 ng/mL 0.00 - 4.00 04/05 Specimen Type: SERUM No comment entered. Ordering Provider: SLOANE ALANIS Report Released Date/Time: Apr 06, 2023 01:26 PM Reporting Lab: [facility] [address] [address] Performing Lab: [facility] [address] [address] [place] BASIC METABOLI C PANEL (fasting ) UREA NITROGEN [MASS/VOLU ME] IN SERUM OR PLASMA 33 mg/dL 7 - 25 04/05 H Specimen Type: SERUM No comment entered. Ordering Provider: SLOANE ALANIS Report Released Date/Time: Apr 06, 2023 01:26 PM Reporting Lab: [facility]ITALRSHEL[facility]ENTERN [address] [address] Performing Lab: [facility]ITALRSHEL[facility]ERN [address] [address] [place] BASIC METABOLI C PANEL (fasting ) GLUCOSE [MASS/VOLU ME] IN SERUM OR PLASMA 147 mg/dL 65 - 100 04/05 H Specimen Type: SERUM No comment entered. Ordering Provider: SLOANE ALANIS Report Released Date/Time: Apr 06, 2023 01:26 PM Reporting Lab: [facility]ITALRNOR[facility]DWIN INFIRMARYTRN [facility]ITALUSE[address] [address] Performing Lab: [facility]ITALRSHEL[facility]ENTERN [address] [address] [place] BASIC METABOLI C PANEL (fasting ) SODIUM [MOLES/VOL UME] IN SERUM OR PLASMA 140 mmol/L 135 - 145 04/05 Specimen Type: SERUM No comment entered. Ordering Provider: SLOANE ALANIS Report Released Date/Time: Apr 06, 2023 01:26 PM Reporting Lab: [facility] [address] [address] Performing Lab: [address] [address] [place] BASIC METABOLI C PANEL (fasting ) POTASSIUM [MOLES/VOL UME] IN SERUM OR PLASMA 4.5 mmol/L 3.5 - 5.0 04/05 Specimen Type: SERUM No comment entered. Ordering Provider: SLOANE ALANIS Report Released Date/Time: Apr 06, 2023 01:26 PM Reporting Lab: [address] [address] Performing Lab: [address] [address] [place] BASIC METABOLI C PANEL (fasting ) CHLORIDE [MOLES/VOL UME] IN SERUM OR PLASMA 108 mmol/L 100 - 110 04/05 Specimen Type: SERUM No comment entered. Ordering Provider: SLOANE ALANIS Report Released Date/Time: Apr 06, 2023 01:26 PM Reporting Lab: [address] [address] Performing Lab: [facility] [address] [address] [place] BASIC METABOLI C PANEL (fasting ) CARBON DIOXIDE, TOTAL [MOLES/VOL UME] IN SERUM OR PLASMA 23 meq/L 20 - 30 04/05 Specimen Type: SERUM No comment entered. Ordering Provider: SLOANE ALANIS Report Released Date/Time: Apr 06, 2023 01:26 PM Reporting Lab: [address] [address] Performing Lab: [facility] [address] [address] [place] BASIC METABOLI C PANEL (fasting ) CREATININE [MASS/VOLU ME] IN SERUM OR PLASMA 1.32 mg/dL 0.50 - 1.40 04/05 Specimen Type: SERUM No comment entered. Ordering Provider: SLOANE ALANIS Report Released Date/Time: Apr 06, 2023 01:26 PM Reporting Lab: [facility]ITALRSHEL[facility] CENTERN [address] [address] Performing Lab: [address] [address] [place] BASIC METABOLI C PANEL (fasting ) GLOMERULAR FILTRATION RATE/1.73 SQ M.PREDICTE D [VOLUME RATE/AREA] IN SERUM, PLASMA OR BLOOD BY CREATININE -BASED FORMULA (CKD-EPI 2020) 59 mL/min 60 04/05 L Specimen Type: SERUM No comment entered. Ordering Provider: SLOANE ALANIS Report Released Date/Time: Apr 06, 2023 01:26 PM Reporting Lab: [address] [address] Performing Lab: [address] [address] [place] LIPID PANEL FASTING CHOLESTERO L [MASS/VOLU ME] IN SERUM OR PLASMA 134 mg/dL 04/05 Specimen Type: SERUM No comment entered. Ordering Provider: SLOANE ALANIS Report Released Date/Time: Apr 06, 2023 01:26 PM Reporting Lab: [address] [address] Performing Lab: [address] [address] [place] LIPID PANEL FASTING TRIGLYCERI DE [MASS/VOLU ME] IN SERUM OR PLASMA 70 mg/dL 0 - 150 04/05 Specimen Type: SERUM No comment entered. Ordering Provider: SLOANE ALANIS Report Released Date/Time: Apr 06, 2023 01:26 PM Reporting Lab: [facility]OSPITALRL TRN [facility]ITALUSETS [facility] [address] [facility] [address] Performing Lab: [facility]ITALRL TRN [facility]ITALUSE[address] [address] [place] LIPID PANEL FASTING CHOLESTERO L IN LDL [MASS/VOLU ME] IN SERUM OR PLASMA BY CALCULATIO N 82 mg/dL 0 - 129 04/05 Specimen Type: SERUM No comment entered. Ordering Provider: SLOANE ALANIS Report Released Date/Time: Apr 06, 2023 01:26 PM Reporting Lab: [facility]OS[facility]ITALRL [facility]N [address] [address] Performing Lab: [facility]ITALRSHELBY [facility] CENTERN [address] [address] [place] LIPID PANEL FASTING CHOLESTERO L.TOTAL/CH OLESTEROL IN HDL [MASS RATIO] IN SERUM OR PLASMA 3.5 04/05 Specimen Type: SERUM No comment entered. Ordering Provider: SLOANE ALANIS Report Released Date/Time: Apr 06, 2023 01:26 PM Reporting Lab: [facility]ITALRSHELBY [facility] CENTERN [address] [address] Performing Lab: [facility] HOSPITALRL TRN [address] [address] [place] LIPID PANEL FASTING CHOLESTERO L IN HDL [MASS/VOLU ME] IN SERUM OR PLASMA 38 mg/dL 40 - 60 04/05 L Specimen Type: SERUM No comment entered. Ordering Provider: SLOANE ALANIS Report Released Date/Time: Apr 06, 2023 01:26 PM Reporting Lab: [facility]ITALRNORTH BALDWIN INFIRMARYTRN [facility]ITALUSE[address] [address] Performing Lab: [facility] HOS[facility]ITALRL [facility]ITALN [facility]ITALUSE[address] [address] [place] LIVER FUNCTION PROTEIN [MASS/VOLU ME] IN SERUM OR PLASMA 6.4 g/dL 6.0 - 8.3 04/05 Specimen Type: SERUM No comment entered. Ordering Provider: SLOANE ALANIS Report Released Date/Time: Apr 06, 2023 01:26 PM Reporting Lab: [facility]ITALRNORTH BALDWIN INFIRMARYTRN [address] [address] Performing Lab: [facility]ITALRSHELBY [facility] CENTERN [address] [address] [place] LIVER FUNCTION ALBUMIN [MASS/VOLU ME] IN SERUM OR PLASMA 4.0 g/dL 3.5 - 5.0 04/05 Specimen Type: SERUM No comment entered. Ordering Provider: SLOANE ALANIS Report Released Date/Time: Apr 06, 2023 01:26 PM Reporting Lab: [facility]ITALRSHELBY BAP[facility]IST MED[facility] CENTERN [address] [address] Performing Lab: [address] [address] [place] FUN[place] ALKALINE PHOSPHATAS E [ENZYMATIC ACTIVITY/V OLUME] IN SERUM OR PLASMA 60 U/L 40 - 150 04/05 Specimen Type: SERUM No comment entered. Ordering Provider: SLOANE ALANIS Report Released Date/Time: Apr 06, 2023 01:26 PM Reporting Lab: [facility]ITALRSHELBY [facility] CENTERN [address] [address] Performing Lab: [facility]ITALRSHEL[facility]ENTERN [address] [address] [place] LIVER FUNCTION ASPARTATE AMINOTRANS FERASE [ENZYMATIC ACTIVITY/V OLUME] IN SERUM OR PLASMA 23 U/L 5 - 34 04/05 Specimen Type: SERUM No comment entered. Ordering Provider: SLOANE ALANIS Report Released Date/Time: Apr 06, 2023 01:26 PM Reporting Lab: [facility]ITALRNORTH BALDWIN INFIRMARYTRN [address] [address] Performing Lab: [facility]ITALRSHELBY [facility] CENTERN [address] [address] [place] LIVER FUNCTION ALANINE AMINOTRANS FERASE [ENZYMATIC ACTIVITY/V OLUME] IN SERUM OR PLASMA 23 U/L 04/05 Specimen Type: SERUM No comment entered. Ordering Provider: SLOANE ALANIS Report Released Date/Time: Apr 06, 2023 01:26 PM Reporting Lab: [facility] [address] [facility] [address] Performing Lab: [facility] [address] [facility] [address] [facility] LIVER FUNCTION BILIRUBIN. TOTAL [MASS/VOLU ME] IN SERUM OR PLASMA 0.5 mg/dL 0.2 - 1.2 04/05 Specimen Type: SERUM No comment entered. Ordering Provider: SLOANE ALANIS Report Released Date/Time: Apr 06, 2023 01:26 PM Reporting Lab: [facility] [address] [facility] [address] Performing Lab: [facility] [address] [facility] [id number] [facility] Vital Signs Combined list of inpatient and outpatient Vital Signs from Department of Defense and Veterans Affairs, ranging from 12 months to all on record, depending upon the facility. Vital Sign Value Date Comments Source SYSTOLIC BLOOD PRESSURE 135 04/06/2024 11:38:32 [facility] DIASTOLIC BLOOD PRESSURE 80 04/06/2024 11:38:32 [facility] PULSE OXIMETRY 98 04/06/2024 11:38:32 [facility] 197 04/06/2024 11:38:32 [facility] BMI 27kg/m2 04/06/2024 11:38:32 [facility] TEMPERATURE 97.6 04/06/2024 11:38:32 [facility] PULSE 76 04/06/2024 11:38:32 [facility] RESPIRATION 18 04/06/2024 11:38:32 [facility] Encounters Combined list of: 1) Encounters from Department of Veterans Affairs facilities going back up to thelast 18 months. 2) Encounters from the Department of Defense facilities going back up to 280 months. Location Location Details Encounter Type Encounter Number Reason For Visit Attending Provider ADM Date DC Date Status Disposition Source [facility] Outpatient Encounter [id number] 01/17 [facility] Encounter [id number] 01/26 [facility] Out[facility] Encounter [id number] 01/26 [facility] Out[facility] Encounter [id number] 01/28 [facility] Out[facility] Encounter [id number] 01/28 [facility] Out[facility] Encounter [id number] 02/12 [facility] Out[facility] Encounter [id number] 04/01 [facility] Out[facility] Encounter [id number] 04/06 [facility] IMMUNIZATI ON ADMIN EACH ADD [id number] PRO SORTO 04/06 [facility] [place] O/P NEW MOD 45-59 MIN [id number] Diagnos is: ICD-10- CM I10 Essenti al (primar y) hyperte nsion<b r/> PRO SORTO 04/06 [place] [facility] Out[facility] Encounter [id number] 04/06 [facility] Out[facility] Encounter [id number] 04/07 [facility] Out[facility] Encounter [id number] 04/07 [facility] Out[facility] Encounter [id number] 04/13 [facility] Out[facility] Encounter [id number] 04/20 [facility] EYE EXAM NEW PATIENT [id number] Diagnos is: ICD-10- CM E11.9 Type 2 diabete s mellitu s without complic ations< br/> TAMMYLOGAN JASON 04/20 [facility] HEARING AID EXAM BOTH EARS [id number] Diagnos is: ICD-10- CM H90.3 Sensori neural hearing loss, bilater al
Luigi BONILLA RAVINDER Shahid 04/21 [facility] FIT SPECTACLES MULTIFOCAL [id number] Diagnos is: ICD-10- CM Z46.0 Encount er for fit/adj st of spectac les and contact lenses< br/> THOM PARIKH 04/21 [facility] FIT SPECTACLES MULTIFOCAL [id number] Diagnos is: ICD-10- CM Z46.0 Encount er for fit/adj st of spectac les and contact lenses< br/> THOM PARIKH ILAN 04/21 [facility] CONFORMITY EVALUATION [id number] Diagnos is: ICD-10- CM Z46.1 Encount er for fitting and adjustm ent of hearing aid<br/ > LENIN ISIDRO 05/15 [facility] Outpatient Encounter [id number] 06/13 [facility] REPAIR & ADJUST SPECTACLES [id number] Diagnos is: ICD-10- CM Z46.0 Encount er for fit/adj st of spectac les and contact lenses< br/> THOM PARIKH ILAN 06/15 [facility] Outpatient Encounter [id number] 06/16 [facility] [place] OFF/OP EST NOVEMBER X REQ PHY/QHP [id number] Diagnos is: ICD-10- CM Z23 Encount er for immuniz ation<b r/> JOLEEN GATES 07/06 [place] [facility] Outpatient Encounter [id number] 10/16 [facility] Outpatient Encounter [id number] 1.10/18 [facility] HEARING AID FITTING/CH ECKING [id number] Diagnos is: ICD-10- CM Z46.1 Encount er for fitting and adjustm ent of hearing aid<br/ > Luigi BONILLA 10/25 [facility] Out[facility] Encounter [id number] 1.11/05 [facility] Outpatient Encounter [id number] [facility] Outpatient Encounter [id number] 11/26 [facility] Outpatient Encounter [id number] 12/30 [facility] Outpatient Encounter [id number] 02/09 [facility] Outpatient Encounter [id number] 02/10 [facility] Outpatient [facility]counter [id number] 02/10 [facility] Outpatient Encounter [id number] 02/10 [facility] Outpatient [facility]counter [id number] 02/10 [facility] Outpatient Encounter [id number] 03/22 [facility] Outpatient Encounter [id number] 04/06 [facility] OFFICE O/P EST MOD 30 MIN [id number] Diagnos is: ICD-10- CM E11.9 Type 2 diabete s mellitu s without complic ations< br/> BERNARD BONILLA 04/06 [place] [facility] COMPRE OPH EXAM EST PT 1/> [id number] 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, r eye<br/ > TAMMYLOGAN 04/26 [facility] FIT SPECTACLES MULTIFOCAL [id number] 1. Diagnos is: ICD-10- CM Z46.0 Encount er for fit/adj st of spectac les and contact lenses< br/> TAMMYLOGAN JASON 04/27 [facility] Outpatient Encounter [id number] [facility] Outpatient Encounter [id number] 05/18 [facility] Social History Combined list of available smoking, tobacco, and other social history from Department of Defense and Veterans Affairs facilities. Social History Type Response Date Comment Sourc e Tobacco smoking status NHIS VA-TOBACCO NEVER USED 04/06/2024 [facility] D History of tobacco use VA-TOBACCO NEVER USED 04/06/2023 [facility] Advance Directives List of completed, amended, or rescinded Advance Directives on record at Department of Veterans Affairs facilities. An actual copy of the Directive is not included. Date Advance Directive Provider Source 04/06/2023 ADVANCE DIRECTIVE TRACEE KYLE
--- OUTSIDE RECORDS SUMMARY | 2024-07-07 15:21 | XMS_ITS | Encounter Summary ---
Author Name [facility] [place] [facility] [place] Address [address] [place] [address] Care Team Providers Care Seedling Puller Name Role Phone ULICES MARIA Primary Care [...] PART A Oct 18, 2021 PART A [id number] [facility] SIMBA KIDD PATIENT MEDICARE (WNR) MEDICARE (M) PART B Oct 18, 2021 PART B [id number] [facility] SIMBA KIDD PATIENT FOR LIFE TFL* Oct 18, 2021 [id number] [phone] SIMBA KIDD PATIENT [facility] (WNR) TRICA RE(WN R) November 17, 2016 (WNR) [id number] [phone] SIMBA KIDDNE PATIENT Selected Encounter This section includes the information on record at [place] for the Encounter. Date/Time Encounter Type Encounter Description Reason Pro vider Source Feb 11, 2024 07:28 AM Outpatient Encounter PRIMARY CARE/MEDICINE IHE Encounter Template Text not used by [place] Plan of Treatment: Future Appointments (+ 6 months) and Future Tests (+/- 45 days) The Plan of Treatment section includes future care activities for the patient from all [place] treatmentfacilities. This section includes future appointments and future orders which are active, pending or scheduled. Future Appointments This section includes appointments that were scheduled to occur 6 months from the date of the Encounter, up to a maximum of 20 appointments. The data comes from all [place] treatment facilities. Appointment Date/Time Appointment Type Appointme nt Facility Name Apr 06, 2024 11:30 AM AMBULATORY - MEDICINE [facility] [place] Apr 26, 2024 03:00 PM [facility] [place] [facility] Social History: Smoking Status (Most current) and [...] Facil ity Apr 06, 2023 10:22 AM [place]-TOBACCO NEVER USED [facility] Advance Directives: All historical and current Section Date Range: From patient's date of to the date document was created. This section includes ALL of a patient's completed or amended [place] Advance and Rescinded Directives. The entries below indicate that a directive exists for the patient, but an actual copy is not included with this document. The data comes from all [place] facilities. Date Advance Directives Provider Source Apr 06, 2023 ADVANCE DIRECTIVE TRACEE KYLE [facility] Encounter Notes: All associated [...] CARE_SPOPC Subject: General:Records for Last Year Attachments: [id number] WK Lab Results.pdf (519.19 KB), [id number] WK Medications.pdf (272.32 KB), [id number] WK Reports.pdf (506.92 KB) Records for Last Year /sammy FERNANDES Signed: 02/11/2024 08:28 02/11/2024 ADDENDUM STATUS: COMPLETED Sitecore Developer put attachments into Pact folder. /sammy FERNANDES Signed: 02/11/2024 08:29 BRYSON DOAN [facility]
--- OUTSIDE RECORDS SUMMARY | 2024-07-07 15:21 | XMS_ITS | Encounter Summary ---
Author Name [facility] [facility] [place] Address [address] [place] [address] Care Team Providers Care Plant Technician Name Role Phone ULICES MARIA Primary [...] PART A Oct 18, 2021 PART A [id number] [facility] [phone] 2 SIMBA KIDD PATIENT MEDICARE (WNR) MEDICARE (M) PART B Oct 18, 2021 PART B [id number] [facility] SIMBA KIDD PATIENT FOR LIFE TFL* Oct 18, 2021 [id number] [phone] SIMBA KIDD PATIENT [facility] (WNR) TRICA RE(WN R) November 17, 2016 (WN) [id number] [phone] SIMBA KIDD JJ PATIENT Selected Encounter This [...] adjustment of hearing aid LUIS E [facility]ILLA [facility] Oct 26, 2023 01:56 PM SECONDARY Sensorineural hearing loss, bilateral LUIS E BONILLA [facility] Plan of Treatment: Future Appointments (+ [...] 26, 2024 03:00 PM [facility] Social History: Smoking Status (Most current) [...] 06, 2023 10:22 AM [place]-TOBACCO NEVER USED [facility] Advance Directives: All historical and current [...] once a month. Aids were connected to Neotropix and gain for the lowest and highest frequencies was rolled off. will try the new settings and contact the clinic as needed. /reggie/ Tarun KAYE, [facility]-A STAFF CARRIAGE RIDER Signed: 10/26/2023 14:00 LUIS E BONILLA [place] [facility]
--- OUTSIDE RECORDS SUMMARY | 2024-07-07 15:22 | XMS_ITS ---
Author Name [facility] [facility] [place] Address [address] [place] [address] Care Team Providers Care Mellowing Machine Operator Name Role Phone ULICES MARIA Primary [...] PART A Oct 18, 2021 PART A [id number] [facility] [phone] SIMBA KIDD PATIENT MEDICARE (WNR) MEDICARE (M) PART B Oct 18, 2021 PART B [id number] [facility] [phone] SIMBA KIDD PATIENT FOR LIFE TFL* Oct 18, 2021 [id number] SIMBA KIDD PATIENT [facility] (WNR) TRICA RE(WN R) November 17, 2016 (WNR) [id number] [phone] [place] PATIENT Selected Encounter This section includes the information on record at [place] for the Encounter. Date/Time Encounter Type Encounter Description Reason Pro vider Source Oct 17, 2023 12:00 AM Outpatient Encounter EVENT (HISTORICAL) IHE Encounter Template Text not used by [place] Plan of Treatment: Future Appointments (+ 6 months) and Future Tests (+/- 45 days) The Plan of Treatment section includes future care activities for the patient from all [place] treatmentfacilities. This section includes future appointments and future orders which are active, pending or scheduled. Future Appointments This section includes appointments that were scheduled to occur 6 months from the date of the Encounter, up to a maximum of 20 appointments. The data comes from all [place] treatment facilities. Appointment Date/Time Appointment Type Appointme nt Facility Name Oct 26, 2023 01:30 PM AMBULATORY - REHAB MEDICIN E [facility] Apr 06, 2024 11:30 AM [facility] Social History: Smoking Status (Most current) and Tobacco Use (All prior to encounter date) This section includes the most current, and the historical, smoking and tobacco- related health factors from the VA facility where the Encounter took place. Current Smoking Status This section includes the most current smoking, or tobacco-related health factor, from the [place] facility where the Encounter took place. Date/Time Current Smoking Status Comment Facil ity Apr 06, 2023 10:22 AM VA-TOBACCO NEVER USED [facility] Advance Directives: All historical and current Section Date Range: From patient's date of to the date document was created. This section includes ALL of a patient's completed or amended [place] Advance and Rescinded Directives. The entries below indicate that a directive exists for the patient, but an actual copy is not included with this document. The data comes from all [place] facilities. Date Advance Directives Provider Source Apr [...] Filed: 02/27/2024 by: FIDEL FARLEY [facility]
--- OUTSIDE RECORDS SUMMARY | 2024-07-07 15:22 | XMS_ITS | Encounter Summary ---
Author Name [facility] [place] [facility] [place] Address [address] [place] [address] Care Team Providers Care Table Games Shift Manager Name Role Phone ULICES MARIA Primary Care [...] PART A Oct 18, 2021 PART A [id number] [facility] [phone] SIMBA KIDD PATIENT MEDICARE (WNR) MEDICARE (M) PART B Oct 18, 2021 PART B [id number] [facility] SIMBA KIDD PATIENT FOR LIFE TFL* Oct 18, 2021 [id number] SIMBA KIDD PATIENT [facility] (WNR) TRICA RE(WN R) November 17, 2016 (WNR) [id number] [place] PATIENT Selected Encounter This section includes the information on record at [place] for the Encounter. Date/Time Encounter Type Encounter Description Reason Pro vider Source Dec 31, 2023 12:00 AM Outpatient Encounter EVENT (HISTORICAL) IHE Encounter Template Text not used by [place] Plan of Treatment: Future Appointments (+ 6 months) and Future Tests (+/- 45 days) The Plan of Treatment section includes future care activities for the patient from all [place] treatmentfacilities. This section includes future appointments and future orders which are active, pending or scheduled. Future Appointments This section includes appointments that were scheduled to occur 6 months from the date of the Encounter, up to a maximum of 20 appointments. The data comes from all [place] treatment facilities. Appointment Date/Time Appointment Type Appointme nt Facility Name Apr 06, 2024 11:30 AM AMBULATORY - MEDICINE [facility] [place] Apr 26, 2024 03:00 PM [facility] [place] [facility] Social History: Smoking Status (Most [...] Facil ity Apr 06, 2023 10:22 AM [place]-TOBACCO NEVER USED [facility] Advance Directives: All historical and current Section Date Range: From patient's date of to the date document was created. This section includes ALL of a patient's completed or amended [place] Advance and Rescinded Directives. The entries below indicate that a directive exists for the patient, but an actual copy is not included with this document. The data comes from all [place] facilities. Date Advance Directives Provider Source Apr 06, 2023 ADVANCE DIRECTIVE TRACEE KYLE [facility] Encounter Notes: All associated encounter notes [...] Filed: 02/27/2024 by: FIDEL FARLEY CNT [facility] Dec 31, 2023 12:00 AM NONVA NOTE: LOCAL TITLE: NON-VA OUTPATIENT NOTES STANDARD TITLE: NONVA NOTE DATE OF NOTE: DEC 31, 2023 ENTRY DATE: FEB 27, 2024@07:14:08 AUTHOR: FIDEL WATKINS EXP COSIGNER: URGENCY: STATUS: COMPLETED VistA Imaging - Scanned Document SCANNED DOCUMENT SIGNATURE NOT REQUIRED Electronically Filed: 02/27/2024 by: FIDEL FARLEY [facility]
--- OUTSIDE RECORDS SUMMARY | 2024-07-07 15:22 | XMS_ITS | Encounter Summary ---
Author Name [facility] [place] [facility] [place] Address [address] [place] [address] Care Team Providers Care Gas Pumping Station Operator Name Role Phone ULICES MARIA Primary [...] PART A Oct 18, 2021 PART A [id number] [facility] SIMBA KIDD PATIENT MEDICARE (WNR) MEDICARE (M) PART B Oct 18, 2021 PART B [id number] [facility] SIMBA KIDD PATIENT FOR LIFE TFL* Oct 18, 2021 [id number] SIMBA KIDD PATIENT [facility] (WNR) TRICA RE(WN R) November 17, 2016 (WNR) [id number] [phone] [place] PATIENT Selected Encounter This section includes the information on record at [place] for the Encounter. Date/Time Encounter Type Encounter Description Reason Pro vider Source Oct 19, 2023 12:00 AM Outpatient Encounter EVENT (HISTORICAL) IHE Encounter Template Text not used by CT Plan of Treatment: Future Appointments (+ 6 months) and Future Tests (+/- 45 days) The Plan of Treatment section includes future care activities for the patient from all [place] treatmentfacilities. This section includes future appointments and future orders which are active, pending or scheduled. Future Appointments This section includes appointments that were scheduled to occur 6 months from the date of the Encounter, up to a maximum of 20 appointments. The data comes from all [place] treatment facilities. Appointment Date/Time Appointment Type Appointme nt Facility Name Oct 26, 2023 01:30 PM AMBULATORY - REHAB MEDICIN E [facility] Apr 06, 2024 11:30 AM [facility] Social History: Smoking Status (Most current) and Tobacco Use (All prior to encounter date) This section includes the most current, and the historical, smoking and tobacco- related health factors from the [facility] facility where the Encounter took place. Current Smoking Status This section includes the most current smoking, or tobacco-related health factor, from the [place] facility where the Encounter took place. Date/Time Current Smoking Status Comment Facil ity Apr 06, 2023 10:22 AM VA-TOBACCO NEVER USED [facility] Advance Directives: All historical and current Section Date Range: From patient's date of to the date document was created. This section includes ALL of a patient's completed or amended CT Advance and Rescinded Directives. The entries below indicate that a directive exists for the patient, but an actual copy is not included with this document. The data comes from all [place] facilities. Date Advance Directives Provider Source Apr [...] Filed: 02/27/2024 by: FIDEL FARLEY [facility] Oct 19, 2023 12:00 AM RADIOLOGY NONVA NO TE: LOCAL TITLE: NON-VA RADIOLOGY STANDARD TITLE: RADIOLOGY NONVA NOTE DATE OF NOTE: OCT 19, 2023 ENTRY DATE: FEB 27, 2024@07:22:49 AUTHOR: ERIC PONCE MA EXP COSIGNER: URGENCY: STATUS: COMPLETED VistA Imaging - Scanned Document SCANNED DOCUMENT SIGNATURE NOT REQUIRED Electronically Filed: 02/27/2024 by: ERIC PONCE ITEM PROCESSING CLERK ERIC PONCE [facility]
--- OUTSIDE RECORDS SUMMARY | 2024-07-07 15:22 | XMS_ITS | Encounter Summary ---
Author Name [facility] [place] [facility] [place] Address [address] [place] [address] Care Team Providers Care Art Dealer Name Role Phone ULICES MARIA Primary Care [...] PART A Oct 18, 2021 PART A [id number] [facility] [phone] SIMBA KIDD PATIENT MEDICARE (WNR) MEDICARE (M) PART B Oct 18, 2021 PART B [id number] [facility] SIMBA KIDD PATIENT FOR LIFE TFL* Oct 18, 2021 [id number] SIMBA KIDD PATIENT [facility] (WNR) TRICA RE(WN R) November 17, 2016 (WNR) [id number] [place] PATIENT Selected Encounter This section includes the information on record at [place] for the Encounter. Date/Time Encounter Type Encounter Description Reason Pro vider Source November 27, 2023 12:00 AM Outpatient Encounter EVENT (HISTORICAL) IHE Encounter Template Text not used by [place] Plan of Treatment: Future Appointments (+ 6 months) and Future Tests (+/- 45 days) The Plan of Treatment section includes future care activities for the patient from all [place] treatmentfacilities. This section includes future appointments and future orders which are active, pending or scheduled. Future Appointments This section includes appointments that were scheduled to occur 6 months from the date of the Encounter, up to a maximum of 20 appointments. The data comes from all [place] treatment facilities. Appointment Date/Time Appointment Type Appointme nt Facility Name Apr 06, 2024 11:30 AM AMBULATORY - MEDICINE [facility] [place] Apr 26, 2024 03:00 PM [facility] [place] [facility] Social History: Smoking Status (Most current) [...] Facil ity Apr 06, 2023 10:22 AM [place]-TOBACCO NEVER USED [facility] Advance Directives: All historical and current Section Date Range: From patient's date of to the date document was created. This section includes ALL of a patient's completed or amended [place] Advance and Rescinded Directives. The entries below indicate that a directive exists for the patient, but an actual copy is not included with this document. The data comes from all [place] facilities. Date Advance Directives Provider Source Apr 06, 2023 ADVANCE DIRECTIVE TRACEE KYLE [facility] Encounter Notes: All associated encounter notes [...] 02/27/2024 by: FIDEL FARLEY [facility] November 27, 2023 12:00 AM NONVA NOTE: LOCAL TITLE: NON-VA OUTPATIENT NOTES STANDARD TITLE: NONVA NOTE DATE OF NOTE: NOVEMBER 27, 2023 ENTRY DATE: FEB 27, 2024@06:42:20 AUTHOR: FIDEL WATKINS EXP ONELIAIGNER: URGENCY: STATUS: COMPLETED VistA Imaging - Scanned Document SCANNED DOCUMENT SIGNATURE NOT REQUIRED Electronically Filed: 02/27/2024 by: [facility]
--- OUTSIDE RECORDS SUMMARY | 2024-07-07 15:22 | XMS_ITS | Encounter Summary ---
Author Name [facility] [place] Organization [facility] [place] [place] Address [address] [place] [address] Care Team Providers Care Nuclear Operator Name Role Phone ULICES MARIA Primary [...] PART A Oct 18, 2021 PART A [id number] [facility] SIMBA KIDD PATIENT MEDICARE (WNR) MEDICARE (M) PART B Oct 18, 2021 PART B [id number] [facility] SIMBA KIDD PATIENT FOR LIFE TFL* Oct 18, 2021 [id number] SIMBA KIDD PATIENT [facility] (WNR) TRICA RE(WN R) November 17, 2016 (WNR) [id number] [place] PATIENT Selected Encounter This section includes the information on record at [place] for the Encounter. Date/Time Encounter Type Encounter Description Reason Pro vider Source Nov 06, 2023 12:00 AM Outpatient Encounter EVENT (HISTORICAL) IHE Encounter Template Text not used by [place] Plan of Treatment: Future Appointments (+ 6 months) and Future Tests (+/- 45 days) The Plan of Treatment section includes future care activities for the patient from all [place] treatmentfacilities. This section includes future appointments and future orders which are active, pending or scheduled. Future Appointments This section includes appointments that were scheduled to occur 6 months from the date of the Encounter, up to a maximum of 20 appointments. The data comes from all [place] treatment facilities. Appointment Date/Time Appointment Type Appointme nt Facility Name Apr 06, 2024 11:30 AM AMBULATORY - MEDICINE [facility] [place] Apr 26, 2024 03:00 PM [facility] [place] [facility] Social History: Smoking Status (Most current) [...] Facil ity Apr 06, 2023 10:22 AM [place]-TOBACCO NEVER USED [facility] Advance Directives: All historical and current Section Date Range: From patient's date of to the date document was created. This section includes ALL of a patient's completed or amended [place] Advance and Rescinded Directives. The entries below indicate that a directive exists for the patient, but an actual copy is not included with this document. The data comes from all [place] facilities. Date Advance Directives Provider Source Apr 06, 2023 ADVANCE DIRECTIVE TRACEE KYLE [facility] Encounter Notes: All associated encounter [...] Filed: 02/27/2024 by: FIDEL FARLEY CNT WSN [facility] Nov 06, 2023 12:00 AM RADIOLOGY NONVA NO TE: LOCAL TITLE: NON-VA RADIOLOGY STANDARD TITLE: RADIOLOGY NONVA NOTE DATE OF NOTE: NOV 06, 2023 ENTRY DATE: FEB 27, 2024@06:34:55 AUTHOR: FIDEL WATKINS EXP ONELIAIGNER: URGENCY: STATUS: COMPLETED VistA Imaging - Scanned Document SCANNED DOCUMENT SIGNATURE NOT REQUIRED Electronically Filed: 02/27/2024 by: FIDEL FARLEY CNT WSN [facility]
--- OUTSIDE RECORDS SUMMARY | 2024-07-07 15:22 | XMS_ITS | Encounter Summary ---
Author Name [facility] [place] [place] [facility] [place] Address [address] [place] [address] Care Team Providers Care Cell Biologist Name Role Phone ULICES MARIA Primary Care [...] PART A Oct 18, 2021 PART A [id number] [facility] SIMBA KIDD PATIENT MEDICARE (WNR) MEDICARE (M) PART B Oct 18, 2021 PART B [id number] [facility] SIMBA KIDD PATIENT FOR LIFE TFL* Oct 18, 2021 [id number] SIMBA KIDD PATIENT [facility] (WNR) TRICA RE(WN R) November 17, 2016 (WNR) [id number] KL[place]E,[place] YNE PATIENT Selected Encounter This [...] 03:00 PM [facility] [place] [facility] Social History: Smoking Status (Most current) [...] 06, 2023 10:22 AM [place]-TOBACCO NEVER USED [facility] Advance Directives: All historical and current [...] Apr 06, 2023 ADVANCE DIRECTIVE TRACEE KYLE [facility] Encounter Notes: All associated encounter [...] Filed: 02/27/2024 by: FIDEL FARLEY CNTRL [facility]
--- OUTSIDE RECORDS SUMMARY | 2024-07-07 15:22 | XMS_ITS | Encounter Summary ---
Author Name [facility] Organization [facility] Address [address] [place] [address] Care Team Providers Care Palliative Medicine Physician Name Role Phone ULICES MARIA Primary Care [...] PART A Oct 18, 2021 PART A [id number] [facility] SIMBA KIDD PATIENT MEDICARE (WNR) MEDICARE (M) PART B Oct 18, 2021 PART B [id number] [facility] SIMBA KIDD PATIENT FOR LIFE TFL* Oct 18, 2021 [id number] SIMBA KIDD PATIENT [facility] (WNR) TRICA RE(WN R) November 17, 2016 (WNR) [id number] SIMBA KIDDNE PATIENT Selected Encounter This section includes the information on record at [place] for the Encounter. Date/Time Encounter Type Encounter Description Reason Pro vider Source Feb 11, 2024 07:32 AM Outpatient Encounter PRIMARY CARE/MEDICINE IHE Encounter Template Text not used by [place] Plan of Treatment: Future Appointments (+ 6 months) and Future Tests (+/- 45 days) The Plan of Treatment section includes future care activities for the patient from all [place] treatmentfacilities. This section includes future appointments and future orders which are active, pending or scheduled. Future Appointments This section includes appointments that were scheduled to occur 6 months from the date of the Encounter, up to a maximum of 20 appointments. The data comes from all [place] treatment facilities. Appointment Date/Time Appointment Type Appointme nt Facility Name Apr 06, 2024 11:30 AM AMBULATORY - MEDICINE [facility] [place] Apr 26, 2024 03:00 PM [facility] Social History: Smoking Status [...] Facil ity Apr 06, 2023 10:22 AM [place]-TOBACCO NEVER USED [facility] Advance Directives: All historical and current Section Date Range: From patient's date of to the date document was created. This section includes ALL of a patient's completed or amended [place] Advance and Rescinded Directives. The entries below indicate that a directive exists for the patient, but an actual copy is not included with this document. The data comes from all [place] facilities. Date Advance Directives Provider Source Apr [...] AUTHOR: ARPIN,BRYSON EXP COSIGNER: URGENCY: STATUS: COMPLETED CIGARETTE PACKER PUT ATTACHMENTS INTO PACT FOLDER. /reggie/ BRYSON FERNANDES Signed: 02/11/2024 08:32 Receipt Acknowledged By: 02/12/2024 10:54 /es/ TRACEE KYLE LPN LPN 02/13/2024 18:12 /es/ Apolonia Briceno RN Registered Nurse for JENNY DSOUZA --- Original Document --- 02/11/24 PRIMARY CARE SECURE MESSAGING: ------Original Message ----- Sent: 02/10/2024 04:56 PM ET From: BENJAMIN KIDD LEXUS To: CANDACE,O_[facility] Subject: General:Records for Last Year Attachments: 489182 WK Ultrasound.pdf (343.91 KB), 509755 WK Urology.pdf (1.01 MB), 618815 WK Allergies and Conditions.pdf (261.54 KB), 159881 WK Health Maint and Immun.pdf (324.34 KB) Records for Last Year /reggie/ BRYSON FERNANDES Signed: 02/11/2024 08:32 BRYSON DOAN [facility]TRL [facility] [place] [facility] Feb 11, 2024 07:32 AM PRIMARY CARE [...] CARE_[facility] Subject: General:Records for Last Year Attachments: 480467 WK Ultrasound.pdf (343.91 KB), 236414 WK Urology.pdf (1.01 MB), 493489 WK Allergies and Conditions.pdf (261.54 KB), 655539 WK Health Maint and Immun.pdf (324.34 KB) Records for Last Year /sammy FERNANDES Signed: 02/11/2024 08:32 02/11/2024 ADDENDUM STATUS: COMPLETED CIGARETTE PACKER PUT ATTACHMENTS INTO PACT FOLDER. /sammy FERNANDES Signed: 02/11/2024 08:32 Receipt Acknowledged By: * AWAITING SIGNATURE * TRACEE KYLE * AWAITING SIGNATURE * JENNY DSOUZA [facility]
--- OUTSIDE RECORDS SUMMARY | 2024-07-07 15:22 | XMS_ITS | Encounter Summary ---
Author Name [facility] Organization [facility] Address [address] [place] [address] Care Team Providers Care Reference Investigator Name Role Phone ULICES MARIA Primary Care [...] PART A Oct 18, 2021 PART A [id number] [facility] SIMBA KIDD PATIENT MEDICARE (WNR) MEDICARE (M) PART B Oct 18, 2021 PART B [id number] [facility] SIMBA KIDD PATIENT FOR LIFE TFL* Oct 18, 2021 [id number] SIMBA KIDD PATIENT [facility] (WNR) TRICA RE(WN R) November 17, 2016 (WNR) [id number] SIMBA KIDDNE PATIENT Selected Encounter This section includes the information on record at [place] for the Encounter. Date/Time Encounter Type Encounter Description Reason Pro vider Source Feb 11, 2024 07:39 AM Outpatient Encounter PRIMARY CARE/MEDICINE IHE Encounter Template Text not used by [place] Plan of Treatment: Future Appointments (+ 6 months) and Future Tests (+/- 45 days) The Plan of Treatment section includes future care activities for the patient from all [place] treatmentfacilities. This section includes future appointments and future orders which are active, pending or scheduled. Future Appointments This section includes appointments that were scheduled to occur 6 months from the date of the Encounter, up to a maximum of 20 appointments. The data comes from all [place] treatment facilities. Appointment Date/Time Appointment Type Appointme nt Facility Name Apr 06, 2024 11:30 AM AMBULATORY - MEDICINE [facility] [place] Apr 26, 2024 03:00 PM [facility] Social History: Smoking Status (Most [...] Facil ity Apr 06, 2023 10:22 AM [place]-TOBACCO NEVER USED [facility] Advance Directives: All historical and current Section Date Range: From patient's date of to the date document was created. This section includes ALL of a patient's completed or amended [place] Advance and Rescinded Directives. The entries below indicate that a directive exists for the patient, but an actual copy is not included with this document. The data comes from all [place] facilities. 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 /sammy FERNANDES Signed: 02/11/2024 08:40 Receipt Acknowledged By: 02/12/2024 10:54 /reggie/ TRACEE KYLE LPN LPN 02/13/2024 18:13 /reggie/ Apolonia Briceno RN Registered Nurse for JENNY DSOUZA --- Original Document --- 02/11/24 PRIMARY CARE SECURE MESSAGING: ------Original Message ----- Sent: 02/10/2024 04:52 PM ET From: BENJAMIN KIDD LEXUS To: CANDACE,[facility] Subject: General:Records for Last Year Attachments: 070677 WK Walk In Clinic Visit.pdf (877.10 KB), 944781 WK Office Visit.pdf (1.38 MB), 500213 WK Knee XRay.pdf (316.07 KB), 429316 WK Primary Office Visit.pdf (937.29 KB) Records for Last year /sammy FERNANDES Signed: 02/11/2024 08:39 02/12/2024 ADDENDUM STATUS: COMPLETED ALL ITEMS SENT TO [facility] FOR SCANNING. 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 /sammy FERNANDES Signed: 02/11/2024 08:40 Receipt Acknowledged By: 02/12/2024 10:54 /reggie/ TRACEE KYLE LPN LPN * AWAITING SIGNATURE * JENNY DSOUZA 02/12/2024 ADDENDUM STATUS: COMPLETED ALL ITEMS SENT TO [facility] FOR SCANNING. /sammy KYLE LPN LPN Signed: 02/12/2024 10:55 BRYSON DOAN CNTRL WSTR[facility]
--- OUTSIDE RECORDS SUMMARY | 2024-07-07 15:22 | XMS_ITS | Encounter Summary ---
Author Name [facility] [place] [facility] [place] Address [address] [place] [address] Care Team Providers Care Cigar Packer And Grader Name Role Phone ULICES MARIA Primary Care [...] PART A Oct 18, 2021 PART A [id number] [facility] SIMBA KIDD PATIENT MEDICARE (WNR) MEDICARE (M) PART B Oct 18, 2021 PART B [id number] [facility] SIMBA KIDD PATIENT FOR LIFE TFL* Oct 18, 2021 [id number] SIMBA KIDD PATIENT [facility] (WNR) TRICA RE(WN R) November 17, 2016 ([facility]) [id number] SIMBA KIDD JJ PATIENT Selected Encounter [...] of spectacles and contact lenses ROMMEL BOLIVAR [facility] Lab Results: +/- 30 days of [...] Range Comment Apr 05, 2024 09:22 AM [facility] MICROALBUMIN CREATININE RATIO PANEL Spe cimen Type: URINE No comment entered. Ordering Provider: ULICES LUCAS Report Released Date/Time: Apr 06, 2023 01:26 PM Reporting [facility] [address] [address] Performing Lab: [facility] [address] [address] MICROALBUMIN/C REATININE RATIO 4.7 mg/g 0-29.9 MICROALBUMIN,Q UANTITATIVE 0.9 mg/dL RR UNAVAIL CREATININE URINE 190.74 mg/dL Apr 05, 2024 09:22 AM [facility] URINALYSIS Specimen Type: URINE Comment: If Glucose = >500 and Ketones are positive, please alert the Physician. Ordering Provider: ULICES LUCAS Report Released Date/Time: Apr 06, 2023 01:26 PM Reporting Lab: [facility] [address] [facility] [address] Performing Lab: [facility] [place] [address] UA COLOR Yellow Yellow UA APPEARANCE Clear Clear UA GLUCOSE Normal mg/dL Negative UA KETONES NEGATIVE mg/dL Negative UA BLOOD NEGATIVE mg/dL Negative UA PROTEIN 10 mg/dL Negative UA NITRITE NEGATIVE mg/dL Negative UA BILIRUBIN NEGATIVE mg/dL Negative UA SPECIFIC GRAVITY 1.030 H 1.016-1.022 UA pH 5.5 5.0-9.0 UA UROBILINOGEN Normal mg/dL <2.0 UA LEUKOCYTE NEGATIVE Negative Apr 05, 2024 09:12 AM [facility] TSH Specimen Type: SERUM No comment entered. Ordering Provider: ULICES LUCAS Report Released Date/Time: Apr 06, 2023 01:26 PM Reporting Lab: [address] [address] Performing Lab: [address] [address] TSH 2.71 u[IU]/mL 0.35-5.00 Apr 05, 2024 09:12 AM [facility] VITAMIN D (25-OH) Specimen Type: SERUM No comment entered. Ordering Provider: ULICES LUCAS Report Released Date/Time: Apr 06, 2023 01:26 PM Reporting Lab: [address] [address] Performing Lab: [address] [address] VITAMIN D (25-OH) 31 ng/mL 20-50 Apr 05, 2024 09:12 AM [facility] FERRITIN Specimen Type: SERUM No comment entered. Ordering Provider: ULICES LUCAS Report Released Date/Time: Apr 06, 2023 01:26 PM Reporting Lab: [address] [address] Performing Lab: [address] [address] FERRITIN 25 ng/mL 20-300 Apr 05, 2024 09:12 AM [facility] IRON & TIBC PANEL Specimen Type: SERUM No comment entered. Ordering Provider: ULICES LUCAS Report Released Date/Time: Apr 06, 2023 01:26 PM Reporting Lab: [address] [address] Performing Lab: [address] [address] TIBC 350 ug/dL 204-475 IRON 63 ug/dL 40-160 Transferrin Saturation 18.0 L 20.0-50.0 Transferrin (TRF) 265 mg/dL 200-360 Apr 05, 2024 09:12 AM [facility] PSA Specimen Type: SERUM No comment entered. Ordering Provider: ULICES LUCAS Report Released Date/Time: Apr 06, 2023 01:26 PM Reporting Lab: [address] [address] Performing Lab: [address] [address] PSA 1.91 ng/mL 0.00-4.00 Apr 05, 2024 09:12 AM [facility] BASIC METABOLIC PANEL (fasting) Specime n Type: SERUM No comment entered. Ordering Provider: ULICES LUCAS Report Released Date/Time: Apr 06, 2023 01:26 PM Reporting Lab: [address] [address] Performing Lab: [address] [address] UREA NITROGEN 33 mg/dL H 7-25 GLUCOSE 147 mg/dL H 65-100 SODIUM 140 mmol/L 135-145 POTASSIUM 4.5 mmol/L 3.5-5.0 CHLORIDE 108 mmol/L 100-110 CO2 23 meq/L 20-30 CREATININE, Serum 1.32 mg/dL 0.50-1.40 eGFR(CKD-EPI 2020) 59 mL/min L >60 Apr 05, 2024 09:12 AM [facility] LIPID PANEL FASTING Specimen Type: SERUM No comment entered. Ordering Provider: ULICES LUCAS Report Released Date/Time: Apr 06, 2023 01:26 PM Reporting Lab: [address] [address] Performing Lab: [address] [address] CHOLESTEROL 134 mg/dL TRIGLYCERIDE 70 mg/dL 0-150 LDL calculated 82 mg/dL 0-129 CHOL/HDL 3.5 HDL CHOLESTEROL 38 mg/dL L 40-60 Apr 05, 2024 09:12 AM [facility] LIVER FUNCTION Specimen Type: SERUM No comment entered. Ordering Provider: ULICES LUCAS Report Released Date/Time: Apr 06, 2023 01:26 PM Reporting Lab: [address] [address] Performing Lab: [address] [address] PROTEIN,TOTAL 6.4 g/dL 6.0-8.3 ALBUMIN 4.0 g/dL 3.5-5.0 ALKALINE PHOSPHATASE 60 U/L 40-150 AST 23 U/L 5-34 ALT 23 U/L BILIRUBIN, TOTAL 0.5 mg/dL 0.2-1.2 Apr 05, 2024 09:12 AM [facility] CBC AND DIFF (AUTO) Specimen Type: BLOOD No comment entered. Ordering Provider: ULICES LUCAS Report Released Date/Time: Apr 06, 2023 01:26 PM Reporting Lab: [address] [address] Performing Lab: [address] [address] WBC 6.99 10*3/uL 4.50-11.00 RBC 5.33 10*6/uL [...] 10*3/uL 0.00-0.00 Apr 05, 2024 09:12 AM [facility] HEMOGLOBIN A1C PANEL Specimen Type: BLOOD Comment: [...] Apr 06, 2023 01:26 PM Reporting Lab: [address] [address] Performing Lab: [address] [address] HEMOGLOBIN A1C 6.6 H 4.0-5.6 Social History: [...] Ebony perez Apr 06, 2023 10:22 AM [place]-TOBACCO NEVER USED [facility] [place] [facility] Advance Directives: All historical and [...] Apr 06, 2023 ADVANCE DIRECTIVE TRACEE KYLE [facility] Encounter Notes: All associated [...] to the creation of a purchase order. [facility] [id number] RX INFORMATION OD -3.00 0.00 X Add:+2.50 Pzm:0.00 Dir: Prz2:0.00 Dir2: OS -2.75 -0.25 X36 Add:+2.50 Pzm:0.00 Dir: Prz2:0.00 Dir2: FITTING INFORMATION FPD: NPD: Crane:R:33.5 L:32.0 SEG HT:R:27 L:27 Tint:None Shade:None VA Billable Items FRAME: KRYSTAL CASE IRMA [id number] Right Lens: POLY VA PROGRESSIVE PHOTOCHROMIC [place] 1.586 POLY Left Lens: POLY VA PROGRESSIVE PHOTOCHROMIC [place] 1.586 POLY CLIN items 0004 - Progressive - Glass Plastic Poly 0005 - Transition /reggie/ VERENICE BHATT BIOMEDICAL TECHNICIAN Signed: 04/27/2024 08:12 Receipt Acknowledged By: 04/27/2024 08:15 /reggie/ Rommel Bolivar LPN Licensed Practical Nurse 04/27/2024 ADDENDUM STATUS: COMPLETED PDS garage door technician fit 1 PAL eyeglasses on 04/26/2024. OPT HT entered consult(s) as requested for provider signature. /reggie/ Rommel Bolivar LPN Licensed Practical Nurse Signed: 04/27/2024 08:16 [facility]ICE BHATTRL [facility]
--- OUTSIDE RECORDS SUMMARY | 2024-07-07 15:22 | XMS_ITS | Encounter Summary ---
Author Name [facility] Address [address] [place] [address] Care Team Providers Care Spud Grader Name Role Phone ULICES MARIA Primary [...] PART A Oct 18, 2021 PART A [id number] [facility] SIMBA KIDD PATIENT MEDICARE (WNR) MEDICARE (M) PART B Oct 18, 2021 PART B [id number] [facility] [phone] SIMBA KIDD PATIENT FOR LIFE TFL* Oct 18, 2021 [id number] SIMBA KIDD PATIENT [facility] (WNR) TRICA RE(WN R) November 17, 2016 (WNR) [id number] [phone] SIMBA KIDDNE PATIENT Selected Encounter This section includes the information on record at [place] for the Encounter. Date/Time Encounter Type Encounter Description Reason Pro vider Source Feb 11, 2024 07:35 AM Outpatient Encounter PRIMARY CARE/MEDICINE IHE Encounter Template Text not used by [place] Plan of Treatment: Future Appointments (+ 6 [...] 26, 2024 03:00 PM [facility] [place] [facility] Social History: Smoking Status (Most current) [...] Facil ity Apr 06, 2023 10:22 AM [place]-TOBACCO NEVER USED [facility] Advance Directives: All historical and current Section Date Range: From patient's date of to the date document was created. This section includes ALL of a patient's completed or amended [place] Advance and Rescinded Directives. 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 /sammy FERNANDES Signed: 02/11/2024 08:36 Receipt Acknowledged By: 02/12/2024 10:54 /es/ RTACEE KYLE LPN LPN 02/13/2024 18:12 /es/ Apolonia Briceno RN Registered Nurse for JENNY DSOUZA --- Original Document --- 02/11/24 PRIMARY CARE SECURE MESSAGING: ------Original Message ----- Sent: 02/10/2024 04:54 PM ET From: BENJAMIN KIDD LEXUS To: CANDACE,O_[facility] Subject: General:Records for Last Year Attachments: 409376 WK Knee XRay.pdf (314.02 KB), 057936 WK Orthopedic Visit.pdf (840.84 KB), 389714 WK Orthopedic Visit.pdf (561.09 KB), 607062 WK Nerve Conduction Study.pdf (509.47 KB) Records for Last Year /reggie/ BRYSON FERNANDES Signed: 02/11/2024 08:35 BRYSON DOAN [place] [facility] [place] [facility] Feb 11, 2024 07:35 AM PRIMARY [...] KIDD LEXUS To: Claudia MARIA_[facility] Subject: General:Records for Last Year Attachments: 636609 WK Knee XRay.pdf (314.02 KB), 485570 WK Orthopedic Visit.pdf (840.84 KB), 233126 WK Orthopedic Visit.pdf (561.09 KB), 361772 WK Nerve Conduction Study.pdf (509.47 KB) Records for Last Year /sammy FERNANDES Signed: 02/11/2024 08:35 02/11/2024 ADDENDUM STATUS: 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
--- OUTSIDE RECORDS SUMMARY | 2024-07-07 15:22 | XMS_ITS | Encounter Summary ---
Author Name [facility] [place] [facility] [place] Address [address] [place] [address] Care Team Providers Care Medical Records Analyst Name Role Phone ULICES MARIA Primary Care [...] PART A Oct 18, 2021 PART A [id number] [facility] SIMBA KIDD PATIENT MEDICARE (WNR) MEDICARE (M) PART B Oct 18, 2021 PART B [id number] [facility] SIMBA KIDD PATIENT FOR LIFE TFL* Oct 18, 2021 [id number] SIMBA KIDD PATIENT [facility] (WNR) TRICA RE(WN R) November 17, 2016 (WNR) [id number] [place], [place] JJ PATIENT Selected Encounter This section [...] with macular edema, r eye SHABBIR MUNOZ [place] [facility] Apr 27, 2024 06:51 AM SECONDARY Combined forms of age-related cataract, bilateral SHABBIR MUNOZ [place] [facility] Apr 27, 2024 06:51 AM SECONDARY Other rosacea SHABBIR MUNOZ [place] [facility] Apr 27, 2024 06:51 AM SECONDARY Type 2 diabetes mellitus without complications SHABBIR MUNOZ [place] [facility] Lab Results: +/- 30 days of the encounter This section includes the Chemistry and Hematology Lab Results on record with [place] for the patient. Radiology Reports and Pathology Reports are provided separately, in subsequent sections. Lab Results This section contains the Chemistry/Hematology Results that were resulted 30 days before or 30 daysafter the date of the Encounter. Date/Time Source Result Type Result - Unit Interpretation Reference Range Comment Apr 05, 2024 09:22 AM [place] MICROALBUMIN CREATININE RATIO PANEL Spe cimen Type: URINE No comment entered. Ordering Provider: ULICES LUCAS Report Released Date/Time: Apr 06, 2023 01:26 PM Reporting Lab: [facility] [address] [facility] [address] Performing Lab: [facility] [address] [facility] [address] MICROALBUMIN/C REATININE RATIO 4.7 mg/g 0-29.9 MICROALBUMIN,Q UANTITATIVE 0.9 mg/dL RR UNAVAIL CREATININE URINE 190.74 mg/dL Apr 05, 2024 09:22 AM [place] URINALYSIS Specimen Type: URINE Comment: If Glucose = >500 and Ketones are positive, please alert the Physician. Ordering Provider: ULICES LUCAS Report Released Date/Time: Apr 06, 2023 01:26 PM Reporting Lab: [address] [address] Performing Lab: [address] [address] UA COLOR Yellow Yellow UA APPEARANCE Clear Clear UA GLUCOSE Normal mg/dL Negative UA KETONES NEGATIVE mg/dL Negative UA BLOOD NEGATIVE mg/dL Negative UA PROTEIN 10 mg/dL Negative UA NITRITE NEGATIVE mg/dL Negative UA BILIRUBIN NEGATIVE mg/dL Negative UA SPECIFIC GRAVITY 1.030 H 1.016-1.022 UA pH 5.5 5.0-9.0 UA UROBILINOGEN Normal mg/dL <2.0 UA LEUKOCYTE NEGATIVE Negative Apr 05, 2024 09:12 AM [place] TSH Specimen Type: SERUM No comment entered. Ordering Provider: ULICES LUCAS Report Released Date/Time: Apr 06, 2023 01:26 PM Reporting Lab: [address] [address] Performing Lab: [address] [address] TSH 2.71 u[IU]/mL 0.35-5.00 Apr 05, 2024 09:12 AM [place] VITAMIN D (25-OH) Specimen Type: SERUM No comment entered. Ordering Provider: ULICES LUCAS Report Released Date/Time: Apr 06, 2023 01:26 PM Reporting Lab: [address] [address] Performing Lab: [address] [address] VITAMIN D (25-OH) 31 ng/mL 20-50 Apr 05, 2024 09:12 AM [place] FERRITIN Specimen Type: SERUM No comment entered. Ordering Provider: ULICES LUCAS M Report Released Date/Time: Apr 06, 2023 01:26 PM Reporting Lab: [place] [facility] [address] [address] Performing Lab: [place] [facility] [address] [address] FERRITIN 25 ng/mL 20-300 Apr 05, 2024 09:12 AM [place] IRON & TIBC PANEL Specimen Type: SERUM No comment entered. Ordering Provider: ULICES LUCAS Report Released Date/Time: Apr 06, 2023 01:26 PM Reporting Lab: [place] [facility] [address] [address] Performing Lab: [place] [facility] [address] [address] TIBC 350 ug/dL 204-475 IRON 63 ug/dL 40-160 Transferrin Saturation 18.0 L 20.0-50.0 Transferrin (TRF) 265 mg/dL 200-360 Apr 05, 2024 09:12 AM [place] PSA Specimen Type: SERUM No comment entered. Ordering Provider: ULICES LUCAS Report Released Date/Time: Apr 06, 2023 01:26 PM Reporting Lab: [place] [facility] [address] [address] Performing Lab: [place] [facility] [address] [address] PSA 1.91 ng/mL 0.00-4.00 Apr 05, 2024 09:12 AM [place] BASIC METABOLIC PANEL (fasting) Specime n Type: SERUM No comment entered. Ordering Provider: ULICES LUCAS Report Released Date/Time: Apr 06, 2023 01:26 PM Reporting Lab: [place] [facility] [place] [address] [address] Performing Lab: [place] [facility] [address] [address] UREA NITROGEN 33 mg/dL H 7-25 GLUCOSE 147 mg/dL H 65-100 SODIUM 140 mmol/L 135-145 POTASSIUM 4.5 mmol/L 3.5-5.0 CHLORIDE 108 mmol/L 100-110 CO2 23 meq/L 20-30 CREATININE, Serum 1.32 mg/dL 0.50-1.40 eGFR(CKD-EPI 2020) 59 mL/min L >60 Apr 05, 2024 09:12 AM [place] LIPID PANEL FASTING Specimen Type: SERUM No comment entered. Ordering Provider: ULICES LUCAS Report Released Date/Time: Apr 06, 2023 01:26 PM Reporting Lab: [facility] [address] [facility] [address] Performing Lab: [address] [address] CHOLESTEROL 134 mg/dL TRIGLYCERIDE 70 mg/dL 0-150 LDL calculated 82 mg/dL 0-129 CHOL/HDL 3.5 HDL CHOLESTEROL 38 mg/dL L 40-60 Apr 05, 2024 09:12 AM [place] LIVER FUNCTION Specimen Type: SERUM No comment entered. Ordering Provider: ULICES LUCAS Report Released Date/Time: Apr 06, 2023 01:26 PM Reporting Lab: [address] [address] Performing Lab: [address] [address] PROTEIN,TOTAL 6.4 g/dL 6.0-8.3 ALBUMIN 4.0 g/dL 3.5-5.0 ALKALINE PHOSPHATASE 60 U/L 40-150 AST 23 U/L 5-34 ALT 23 U/L BILIRUBIN, TOTAL 0.5 mg/dL 0.2-1.2 Apr 05, 2024 09:12 AM [place] CBC AND DIFF (AUTO) Specimen Type: BLOOD No comment entered. Ordering Provider: ULICES LUCAS Report Released Date/Time: Apr 06, 2023 01:26 PM Reporting Lab: [facility] [address] [facility] [address] Performing Lab: [address] [address] WBC 6.99 10*3/uL 4.50-11.00 RBC 5.33 10*6/uL [...] 10*3/uL 0.00-0.00 Apr 05, 2024 09:12 AM [place] HEMOGLOBIN A1C PANEL Specimen Type: BLOOD Comment: [...] Apr 06, 2023 01:26 PM Reporting Lab: [address] [address] Performing Lab: [address] [address] HEMOGLOBIN A1C 6.6 H 4.0-5.6 Social History: [...] Ebony perez Apr 06, 2023 10:22 AM [place]-TOBACCO NEVER USED [place] [facility] Advance Directives: All historical and current Section Date Range: From patient's date of to the date document was created. This section includes ALL of a patient's completed or amended [place] Advance and Rescinded Directives. The entries below indicate that a directive exists for the patient, but an actual copy is not included with this document. The data comes from all [place] facilities. Date Advance Directives Provider Source Apr 06, 2023 ADVANCE DIRECTIVE TRACEE KYLE [facility] Encounter Notes: All associated encounter [...] potentially hazardous substance 3. HTN - Hypertension ([facility] [id number]) 4. Erectile Dysfunction ([facility] [id number]) 5. Méndez's esophagus 6. Chronic kidney disease stage 3 7. GERD - Gastro-Esophageal Reflux Disease ([facility] [id number]) 8. Benign Prostatic Hypertrophy without Outflow Obstruction ([facility] [id number]) 9. Diabetes Mellitus Type 2 ([facility] [id number]) 10. Hyperlipidemia ([facility] [id number]) 11. Iron deficiency 12. OA - Osteoarthritis of knee 13. Diabetic polyneuropathy 14. Cognitive impairment 15. History of surgery 16. Tinnitus 17. Hammer toe 18. Allergic Rhinitis ([facility] [id number]) Active Outpatient Medications (including Supplies): Active Non-VA [...] annual DIABETIC CEE RAO: 04/20/23 Chief Complaint: [place] denied any ocular health or vision concerns. [...] this [facility] (local) and dispensed from another [place] or [facility] facility (remote) as well as inpatient orders [...] Remote Allergy/ADR Data available for this patient [place] [facility] No Known Allergies Med Recon NoGlossary (Tool [...] the patient into personal health records (i.e. [facility]) are NOT included in this list. Non-VA medications documented outside this [place], remote inpatient orders (regardless of status) and [...] 1 HOUR PRIOR TO SEXUAL ACTIVITY Rx# [id number] Last Released: 04/07/24 Qty/Days Supply: 01/16 Rx Expiration Date: 04/11/24 Refills Remainin Indication: FOR ERECTILE DYSFUNCTION SUPPLIES Declines printed copy of medication list now. /reggie/ Roscoe Munoz OD CHIEF OF OPTOMETRY Signed: 04/27/2024 06:54 ALPESH PEREZ [place] [facility]
--- OUTSIDE RECORDS SUMMARY | 2024-07-07 15:22 | XMS_ITS | Encounter Summary ---
Author Name [facility] Address [address] [place] [address] Care Team Providers Care Nurse Tech Name Role Phone ULICES MARIA Primary Care [...] PART A Oct 18, 2021 PART A [id number] [facility] [phone] SIMBA KIDD PATIENT MEDICARE (WNR) MEDICARE (M) PART B Oct 18, 2021 PART B [id number] [facility] SIMBA KIDD PATIENT FOR LIFE TFL* Oct 18, 2021 [id number] SIMBA KIDD PATIENT [facility] (WNR) TRICA RE(WN R) November 17, 2016 (WNR) [id number] SIMBA KIDD PATIENT Selected Encounter This section includes the information on record at [place] for the Encounter. Date/Time Encounter Type Encounter Description Reason Pro vider Source May 16, 2024 08:32 AM Outpatient Encounter PRIMARY CARE/MEDICINE IHE Encounter Template Text not used by [place] Social History: Smoking Status (Most current) and Tobacco Use (All prior to encounter date) This section includes the most current, and the historical, smoking and tobacco- related health factors from the [place] facility where the Encounter took place. Current Smoking Status This section includes the most current smoking, or tobacco-related health factor, from the [place] facility where the Encounter took place. Date/Time Current Smoking Status Comment Facil ity Apr 06, 2023 10:22 AM [place]-TOBACCO NEVER USED [place] [facility] [place] [facility] Advance Directives: All historical and current [...] Apr 06, 2023 ADVANCE DIRECTIVE TRACEE KYLE [facility] Encounter Notes: All associated encounter notes [...] ET From: MICHAEL KIDD LEXUS To: CANDACEO_Javier [facility] Subject: Medication:Renew prescription Could you please renew my prescription for Sildenafil Citrate 50mg? Michael Gaines /reggie/ LEIA FERNANDES Signed: 05/16/2024 08:32 Receipt Acknowledged By: 05/18/2024 16:30 /es/ TRACEE KYLE LPN LPN 05/19/2024 08:07 /es/ DAVID GATES, RN REGISTERED NURSE for LEIA FLANNERY [facility]
--- OUTSIDE RECORDS SUMMARY | 2024-07-07 15:22 | XMS_ITS | Encounter Summary ---
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 Date/Time Encounter Type Encounter Description Reason Pro vider Source Mar 22, 2024 09:49 AM Outpatient Encounter ADMIN PAT ACTIVTIES (MASNONCT) IHE Encounter Template Text not used by [place] Plan of Treatment: Future Appointments (+ 6 months) and Future Tests (+/- 45 days) The Plan of Treatment section includes future care activities for the patient from all [place] treatmentfacilities. This section includes future appointments and future orders which are active, pending or scheduled. Future Appointments This section includes appointments that were scheduled to occur 6 months from the date of the Encounter, up to a maximum of 20 appointments. The data comes from all [place] treatment facilities. Appointment Date/Time Appointment Type Appointme nt Facility Name Apr 06, 2024 11:30 AM AMBULATORY - MEDICINE [facility] Apr 26, 2024 03:00 PM AMBULATORY - MEDICINE [facility] Lab Results: +/- 30 days of the encounter This section includes the Chemistry and Hematology Lab Results on record with [place] for the patient. Radiology Reports and Pathology Reports are provided separately, in subsequent sections. Lab Results This section contains the Chemistry/Hematology Results that were resulted 30 days before or 30 daysafter the date of the Encounter. Date/Time Source Result Type Result - Unit Interpretation Reference Range Comment Apr 05, 2024 09:22 AM [place] MICROALBUMIN CREATININE RATIO PANEL Spe cimen Type: URINE No comment entered. Ordering Provider: ULICES LUCAS Report Released Date/Time: Apr 06, 2023 01:26 PM Reporting Lab: [facility] [address] [facility] [address] Performing Lab: [facility] [address] [facility] [address] MICROALBUMIN/C REATININE RATIO 4.7 mg/g 0-29.9 MICROALBUMIN,Q UANTITATIVE 0.9 mg/dL RR UNAVAIL CREATININE URINE 190.74 mg/dL Apr 05, 2024 09:22 AM [facility] URINALYSIS Specimen Type: URINE Comment: If Glucose = >500 and Ketones are positive, please alert the Physician. Ordering Provider: ULICES LUCAS Report Released Date/Time: Apr 06, 2023 01:26 PM Reporting Lab: [facility] [address] [address] Performing Lab: [facility] [address] [address] UA COLOR Yellow Yellow UA APPEARANCE Clear Clear UA GLUCOSE Normal mg/dL Negative UA KETONES NEGATIVE mg/dL Negative UA BLOOD NEGATIVE mg/dL Negative UA PROTEIN 10 mg/dL Negative UA NITRITE NEGATIVE mg/dL Negative UA BILIRUBIN NEGATIVE mg/dL Negative UA SPECIFIC GRAVITY 1.030 H 1.016-1.022 UA pH 5.5 5.0-9.0 UA UROBILINOGEN Normal mg/dL <2.0 UA LEUKOCYTE NEGATIVE Negative Apr 05, 2024 09:12 AM [facility] TSH Specimen Type: SERUM No comment entered. Ordering Provider: ULICES LUCAS Report Released Date/Time: Apr 06, 2023 01:26 PM Reporting Lab: [facility] [address] [address] Performing Lab: [facility] [address] [address] TSH 2.71 u[IU]/mL 0.35-5.00 Apr 05, 2024 09:12 AM [place] VITAMIN D (25-OH) Specimen Type: SERUM No comment entered. Ordering Provider: ULICES LUCAS Report Released Date/Time: Apr 06, 2023 01:26 PM Reporting Lab: [facility] [address] Performing Lab: [facility] [address] VITAMIN D (25-OH) 31 ng/mL 20-50 Apr 05, 2024 09:12 AM [place] FERRITIN Specimen Type: SERUM No comment entered. Ordering Provider: ULICES LUCAS Report Released Date/Time: Apr 06, 2023 01:26 PM Reporting Lab: [address] [address] Performing Lab: [facility] [address] [address] FERRITIN 25 ng/mL 20-300 Apr 05, 2024 09:12 AM [facility] IRON & TIBC PANEL Specimen Type: SERUM No comment entered. Ordering Provider: ULICES LUCAS Report Released Date/Time: Apr 06, 2023 01:26 PM Reporting Lab: [facility] [address] [address] Performing Lab: [facility] [address] [address] TIBC 350 ug/dL 204-475 IRON 63 ug/dL 40-160 Transferrin Saturation 18.0 L 20.0-50.0 Transferrin (TRF) 265 mg/dL 200-360 Apr 05, 2024 09:12 AM [facility] PSA Specimen Type: SERUM No comment entered. Ordering Provider: ULICES LUCAS Report Released Date/Time: Apr 06, 2023 01:26 PM Reporting Lab: [facility] [address] [address] Performing Lab: [facility] [address] [address] PSA 1.91 ng/mL 0.00-4.00 Apr 05, 2024 09:12 AM [facility] BASIC METABOLIC PANEL (fasting) Specime n Type: SERUM No comment entered. Ordering Provider: ULICES LUCAS Report Released Date/Time: Apr 06, 2023 01:26 PM Reporting Lab: [facility] [address] [address] Performing Lab: [facility] [address] [address] UREA NITROGEN 33 mg/dL H 7-25 GLUCOSE 147 mg/dL H 65-100 SODIUM 140 mmol/L 135-145 POTASSIUM 4.5 mmol/L 3.5-5.0 CHLORIDE 108 mmol/L 100-110 CO2 23 meq/L 20-30 CREATININE, Serum 1.32 mg/dL 0.50-1.40 eGFR(CKD-EPI 2020) 59 mL/min L >60 Apr 05, 2024 09:12 AM [facility] LIPID PANEL FASTING Specimen Type: SERUM No comment entered. Ordering Provider: ULICES LUCAS Report Released Date/Time: Apr 06, 2023 01:26 PM Reporting Lab: [facility] [address] [facility] [address] Performing Lab: [address] [address] CHOLESTEROL 134 mg/dL TRIGLYCERIDE 70 mg/dL 0-150 LDL calculated 82 mg/dL 0-129 CHOL/HDL 3.5 HDL CHOLESTEROL 38 mg/dL L 40-60 Apr 05, 2024 09:12 AM [place] LIVER FUNCTION Specimen Type: SERUM No comment entered. Ordering Provider: ULICES LUCAS Report Released Date/Time: Apr 06, 2023 01:26 PM Reporting Lab: [address] [address] Performing Lab: [address] [address] PROTEIN,TOTAL 6.4 g/dL 6.0-8.3 ALBUMIN 4.0 g/dL 3.5-5.0 ALKALINE PHOSPHATASE 60 U/L 40-150 AST 23 U/L 5-34 ALT 23 U/L BILIRUBIN, TOTAL 0.5 mg/dL 0.2-1.2 Apr 05, 2024 09:12 AM [facility] CBC AND DIFF (AUTO) Specimen Type: BLOOD No comment entered. Ordering Provider: ULICES LUCAS Report Released Date/Time: Apr 06, 2023 01:26 PM Reporting Lab: [address] [address] Performing Lab: [address] [address] WBC 6.99 10*3/uL 4.50-11.00 RBC 5.33 10*6/uL [...] 10*3/uL 0.00-0.00 Apr 05, 2024 09:12 AM [facility] HEMOGLOBIN A1C PANEL Specimen Type: BLOOD Comment: [...] 06, 2023 01:26 PM Reporting Lab: [address] [address] Performing Lab: [address] [address] HEMOGLOBIN A1C 6.6 H 4.0-5.6 Social History: Smoking Status (Most current) and Tobacco Use (All prior to encounter date) This section includes the most current, and the historical, smoking and tobacco- related health factors from the [place] facility where the Encounter took place. Current Smoking Status This section includes the most current smoking, or tobacco-related health factor, from the [place] facility where the Encounter took place. Date/Time Current Smoking Status Comment Ebony perez Apr 06, 2023 10:22 AM VA-TOBACCO NEVER USED [place] [facility] [place] [facility] Advance Directives: All historical and current Section Date Range: From patient's date of to the date document was created. This section includes ALL of a patient's completed or amended [place] Advance and Rescinded Directives. The entries below indicate that a directive exists for the patient, but an actual copy is not included with this document. The data comes from all [place] facilities. Date Advance Directives Provider Source Apr 06, 2023 ADVANCE DIRECTIVE SAROJTRACEE HYDE [facility] Encounter Notes: All associated encounter notes [...] Patient Name: BENJAMIN KIDD Patient Primary Phone: [phone] Patient Primary Address: [address] [place] [address] Patient : 1955 Patient Age: 68 Call [...] Order) IMPORTANT: This note was created by [facility] staff. Please do not alert the staff member by adding them as a signer for future communications. Alerts are not monitored by this user. 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 /reggie/ MAGDI FERNANDES Signed: 03/22/2024 15:06 FELTON ARROYO CNTRL [facility]
--- OUTSIDE RECORDS SUMMARY | 2024-07-07 15:22 | XMS_ITS | Encounter Summary ---
Author Name [facility] [place] Address [address] [place] [address] Care Team Providers Care Mechanical Technician Name Role Phone ULICES MARIA Primary [...] PART A Oct 18, 2021 PART A [id number] [facility] SIMBA KIDD PATIENT MEDICARE (WNR) MEDICARE (M) PART B Oct 18, 2021 PART B [id number] [facility] SIMBA KIDD PATIENT FOR LIFE TFL* Oct 18, 2021 [id number] SIMBA KIDD PATIENT [facility] (WNR) TRICA RE(WN R) November 17, 2016 (WNR) [id number] SIMBA KIDD PATIENT Selected Encounter This [...]
--- OUTSIDE RECORDS SUMMARY | 2024-07-07 15:22 | XMS_ITS | Encounter Summary ---
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 Date/Time Encounter Type Encounter Description Reason Pro vider Source Apr 06, 2024 12:00 AM Outpatient Encounter EVENT (HISTORICAL) IHE Encounter Template Text not used by [place] Plan of Treatment: Future Appointments (+ 6 months) and Future Tests (+/- 45 days) The Plan of Treatment section includes future care activities for the patient from all [place] treatmentfacilities. This section includes future appointments and future orders which are active, pending or scheduled. Future Appointments This section includes appointments that were scheduled to occur 6 months from the date of the Encounter, up to a maximum of 20 appointments. The data comes from all [place] treatment facilities. Appointment Date/Time Appointment Type Appointme nt Facility Name Apr 26, 2024 03:00 PM AMBULATORY - MEDICINE [facility] Lab Results: +/- 30 days of the encounter This section includes the Chemistry and Hematology Lab Results on record with [place] for the patient. Radiology Reports and Pathology Reports are provided separately, in subsequent sections. Lab Results This section contains the Chemistry/Hematology Results that were resulted 30 days before or 30 daysafter the date of the Encounter. Date/Time Source Result Type Result - Unit Interpretation Reference Range Comment Apr 05, 2024 09:22 AM [place] MICROALBUMIN CREATININE RATIO PANEL Spe cimen Type: URINE No comment entered. Ordering Provider: ULICES LUCAS Report Released Date/Time: Apr 06, 2023 01:26 PM Reporting Lab: [facility] [address] [facility] [address] Performing Lab: [facility] [address] [facility] [address] MICROALBUMIN/C REATININE RATIO 4.7 mg/g 0-29.9 MICROALBUMIN,Q UANTITATIVE 0.9 mg/dL RR UNAVAIL CREATININE URINE 190.74 mg/dL Apr 05, 2024 09:22 AM [place] URINALYSIS Specimen Type: URINE Comment: If Glucose = >500 and Ketones are positive, please alert the Physician. Ordering Provider: ULICES LUCAS Report Released Date/Time: Apr 06, 2023 01:26 PM Reporting Lab: [place] [address] [address] Performing Lab: [address] [address] UA COLOR Yellow Yellow UA APPEARANCE Clear Clear UA GLUCOSE Normal mg/dL Negative UA KETONES NEGATIVE mg/dL Negative UA BLOOD NEGATIVE mg/dL Negative UA PROTEIN 10 mg/dL Negative UA NITRITE NEGATIVE mg/dL Negative UA BILIRUBIN NEGATIVE mg/dL Negative UA SPECIFIC GRAVITY 1.030 H 1.016-1.022 UA pH 5.5 5.0-9.0 UA UROBILINOGEN Normal mg/dL <2.0 UA LEUKOCYTE NEGATIVE Negative Apr 05, 2024 09:12 AM [place] TSH Specimen Type: SERUM No comment entered. Ordering Provider: ULICES LUCAS Report Released Date/Time: Apr 06, 2023 01:26 PM Reporting Lab: [address] [address] Performing Lab: [address] [address] TSH 2.71 u[IU]/mL 0.35-5.00 Apr 05, 2024 09:12 AM [place] VITAMIN D (25-OH) Specimen Type: SERUM No comment entered. Ordering Provider: ULICES LUCAS Report Released Date/Time: Apr 06, 2023 01:26 PM Reporting Lab: [address] [address] Performing Lab: [address] [address] VITAMIN D (25-OH) 31 ng/mL 20-50 Apr 05, 2024 09:12 AM [place] FERRITIN Specimen Type: SERUM No comment entered. Ordering Provider: ULICES LUCAS Report Released Date/Time: Apr 06, 2023 01:26 PM Reporting Lab: [address] [address] Performing Lab: [address] [address] FERRITIN 25 ng/mL 20-300 Apr 05, 2024 09:12 AM [place] IRON & TIBC PANEL Specimen Type: SERUM No comment entered. Ordering Provider: ULICES LUCAS Report Released Date/Time: Apr 06, 2023 01:26 PM Reporting Lab: [address] [address] Performing Lab: [address] [address] TIBC 350 ug/dL 204-475 IRON 63 ug/dL 40-160 Transferrin Saturation 18.0 L 20.0-50.0 Transferrin (TRF) 265 mg/dL 200-360 Apr 05, 2024 09:12 AM [place] PSA Specimen Type: SERUM No comment entered. Ordering Provider: ULICES LUCAS Report Released Date/Time: Apr 06, 2023 01:26 PM Reporting Lab: [address] [address] Performing Lab: [address] [address] PSA 1.91 ng/mL 0.00-4.00 Apr 05, 2024 09:12 AM [place] BASIC METABOLIC PANEL (fasting) Specime n Type: SERUM No comment entered. Ordering Provider: ULICES LUCAS Report Released Date/Time: Apr 06, 2023 01:26 PM Reporting Lab: [address] [address] Performing Lab: [address] [address] UREA NITROGEN 33 mg/dL H 7-25 GLUCOSE 147 mg/dL H 65-100 SODIUM 140 mmol/L 135-145 POTASSIUM 4.5 mmol/L 3.5-5.0 CHLORIDE 108 mmol/L 100-110 CO2 23 meq/L 20-30 CREATININE, Serum 1.32 mg/dL 0.50-1.40 eGFR(CKD-EPI 2020) 59 mL/min L >60 Apr 05, 2024 09:12 AM [place] LIPID PANEL FASTING Specimen Type: SERUM No comment entered. Ordering Provider: ULICES LUCAS Report Released Date/Time: Apr 06, 2023 01:26 PM Reporting Lab: [address] [address] Performing Lab: [address] [address] CHOLESTEROL 134 mg/dL TRIGLYCERIDE 70 mg/dL 0-150 LDL calculated 82 mg/dL 0-129 CHOL/HDL 3.5 HDL CHOLESTEROL 38 mg/dL L 40-60 Apr 05, 2024 09:12 AM [place] LIVER FUNCTION Specimen Type: SERUM No comment entered. Ordering Provider: ULICES LUCAS Report Released Date/Time: Apr 06, 2023 01:26 PM Reporting Lab: [address] [address] Performing Lab: [address] [address] PROTEIN,TOTAL 6.4 g/dL 6.0-8.3 ALBUMIN 4.0 g/dL 3.5-5.0 ALKALINE PHOSPHATASE 60 U/L 40-150 AST 23 U/L 5-34 ALT 23 U/L BILIRUBIN, TOTAL 0.5 mg/dL 0.2-1.2 Apr 05, 2024 09:12 AM [place] CBC AND DIFF (AUTO) Specimen Type: BLOOD No comment entered. Ordering Provider: ULICES LUCAS Report Released Date/Time: Apr 06, 2023 01:26 PM Reporting Lab: [address] [address] Performing Lab: [facility] [address] [address] WBC 6.99 10*3/uL 4.50-11.00 RBC 5.33 10*6/uL [...] 10*3/uL 0.00-0.00 Apr 05, 2024 09:12 AM [place] HEMOGLOBIN A1C PANEL Specimen Type: BLOOD Comment: [...] Apr 06, 2023 01:26 PM Reporting Lab: [address] [address] Performing Lab: [address] [address] HEMOGLOBIN A1C 6.6 H 4.0-5.6 Social History: Smoking Status (Most current) and Tobacco Use (All prior to encounter date) This section includes the most current, and the historical, smoking and tobacco- related health factors from the [place] facility where the Encounter took place. Current Smoking Status This section includes the most current smoking, or tobacco-related health factor, from the [place] facility where the Encounter took place. Date/Time Current Smoking Status Comment Ebony perez Apr 06, 2023 10:22 AM [place]-TOBACCO NEVER USED [facility] Advance Directives: All historical and current Section Date Range: From patient's date of to the date document was created. This section includes ALL of a patient's completed or amended [place] Advance and Rescinded Directives. The entries below indicate that a directive exists for the patient, but an actual copy is not included with this document. The data comes from all [place] facilities. Date Advance Directives Provider Source Apr 06, 2023 ADVANCE DIRECTIVE TRACEE KYLE
--- OUTSIDE RECORDS SUMMARY | 2024-07-07 15:22 | XMS_ITS | Encounter Summary ---
Author Name [facility] [place] Organization [place] Address [address] [place] [id number] Care Team Providers Care Property Assistant Name Role Phone ULICES MARIA Primary [...] PART A Oct 18, 2021 PART A [id number] [facility] [phone] SIMBA KIDD PATIENT MEDICARE (WNR) MEDICARE (M) PART B Oct 18, 2021 PART B [id number] SIMBA KIDD PATIENT FOR LIFE TFL* Oct 18, 2021 [id number] SIMBA KIDD PATIENT [facility] (WNR) TRICA RE(WN R) November 17, 2016 (WNR) [id number] [phone] KLINGE,[place] Y[place] PATIENT Selected Encounter This section includes the information on record at [place] for the Encounter. Date/Time Encounter Type Encounter Description Reason Provider Source Apr 06, 2024 11:30 AM OFFICE O/P EST MOD 30 MIN PRIMARY CARE/MEDICINE ICD-10-CM E11.9 Type 2 diabetes mellitus without complications RICK BONILLA Encounter Template Text not used by [place] Assessments - Encounter Diagnoses This section includes the primary and secondary diagnoses documented for the Encounter. Date/Time Primary/Secondary Diagnosis Diagnosis Name Provider Source Apr 06, 2024 11:45 AM PRIMARY Type 2 diabetes mellitus without complications RICK BONILLA Apr 06, 2024 11:45 AM [facility] Encounter for immunization RICK BONILLA [place] Apr 06, 2024 11:45 AM [facility] Hyperlipidemia, unspecified RICK BONILLA [place] Apr 06, 2024 11:45 AM SECONDARY Male erectile dysfunction, unspecified RICK BONILLA Plan of Treatment: Future Appointments (+ 6 months) and Future Tests (+/- 45 days) The Plan of Treatment section includes future care activities for the patient from all [place] treatmentfacilities. This section includes future appointments and future orders which are active, pending or scheduled. Future Appointments This section includes appointments that were scheduled to occur 6 months from the date of the Encounter, up to a maximum of 20 appointments. The data comes from all [place] treatment facilities. Appointment Date/Time Appointment Type Appointme nt Facility Name Apr 26, 2024 03:00 PM AMBULATORY - MEDICINE [facility] Lab Results: +/- 30 days of the encounter This section includes the Chemistry and Hematology Lab Results on record with [place] for the patient. Radiology Reports and Pathology Reports are provided separately, in subsequent sections. Lab Results This section contains the Chemistry/Hematology Results that were resulted 30 days before or 30 daysafter the date of the Encounter. Date/Time Source Result Type Result - Unit Interpretation Reference Range Comment Apr 05, 2024 09:22 AM [place] MICROALBUMIN CREATININE RATIO PANEL Spe cimen Type: URINE No comment entered. Ordering Provider: ULICES LUCAS Report Released Date/Time: Apr 06, 2023 01:26 PM Reporting Lab: [address] [address] Performing Lab: [address] [address] MICROALBUMIN/C REATININE RATIO 4.7 mg/g 0-29.9 MICROALBUMIN,Q UANTITATIVE 0.9 mg/dL RR UNAVAIL CREATININE URINE 190.74 mg/dL Apr 05, 2024 09:22 AM [place] URINALYSIS Specimen Type: URINE Comment: If Glucose = >500 and Ketones are positive, please alert the Physician. Ordering Provider: ULICES LUCAS Report Released Date/Time: Apr 06, 2023 01:26 PM Reporting Lab: [address] [address] Performing Lab: [address] [address] UA COLOR Yellow Yellow UA APPEARANCE Clear Clear UA GLUCOSE Normal mg/dL Negative UA KETONES NEGATIVE mg/dL Negative UA BLOOD NEGATIVE mg/dL Negative UA PROTEIN 10 mg/dL Negative UA NITRITE NEGATIVE mg/dL Negative UA BILIRUBIN NEGATIVE mg/dL Negative UA SPECIFIC GRAVITY 1.030 H 1.016-1.022 UA pH 5.5 5.0-9.0 UA UROBILINOGEN Normal mg/dL <2.0 UA LEUKOCYTE NEGATIVE Negative Apr 05, 2024 09:12 AM [place] TSH Specimen Type: SERUM No comment entered. Ordering Provider: ULICES LUCAS Report Released Date/Time: Apr 06, 2023 01:26 PM Reporting Lab: [address] [address] Performing Lab: [address] [address] TSH 2.71 u[IU]/mL 0.35-5.00 Apr 05, 2024 09:12 AM [place] VITAMIN D (25-OH) Specimen Type: SERUM No comment entered. Ordering Provider: ULICES LUCAS Report Released Date/Time: Apr 06, 2023 01:26 PM Reporting Lab: [address] [address] Performing Lab: [address] [address] VITAMIN D (25-OH) 31 ng/mL 20-50 Apr 05, 2024 09:12 AM [place] FERRITIN Specimen Type: SERUM No comment entered. Ordering Provider: ULICES LUCAS Report Released Date/Time: Apr 06, 2023 01:26 PM [facility] [address] [address] Performing Lab: [facility] [address] FERRITIN 25 ng/mL 20-300 Apr 05, 2024 09:12 AM [place] IRON & TIBC PANEL Specimen Type: SERUM No comment entered. Ordering Provider: ULICES LUCAS Report Released Date/Time: Apr 06, 2023 01:26 PM Reporting Lab: [facility] [address] [address] Performing Lab: [facility] [address] [address] TIBC 350 ug/dL 204-475 IRON 63 ug/dL 40-160 Transferrin Saturation 18.0 L 20.0-50.0 Transferrin (TRF) 265 mg/dL 200-360 Apr 05, 2024 09:12 AM [place] PSA Specimen Type: SERUM No comment entered. Ordering Provider: ULICES LUCAS Report Released Date/Time: Apr 06, 2023 01:26 PM Reporting Lab: [facility] [address] Performing Lab: [facility] [address] [address] PSA 1.91 ng/mL 0.00-4.00 Apr 05, 2024 09:12 AM [place] BASIC METABOLIC PANEL (fasting) Specime n Type: SERUM No comment entered. Ordering Provider: ULICES LUCAS Report Released Date/Time: Apr 06, 2023 01:26 PM Reporting Lab: [facility] [address] Performing Lab: [facility] [address] UREA NITROGEN 33 mg/dL H 7-25 GLUCOSE 147 mg/dL H 65-100 SODIUM 140 mmol/L 135-145 POTASSIUM 4.5 mmol/L 3.5-5.0 CHLORIDE 108 mmol/L 100-110 CO2 23 meq/L 20-30 CREATININE, Serum 1.32 mg/dL 0.50-1.40 eGFR(CKD-EPI 2020) 59 mL/min L >60 Apr 05, 2024 09:12 AM [place] LIPID PANEL FASTING Specimen Type: SERUM No comment entered. Ordering Provider: ULICES LUCAS Report Released Date/Time: Apr 06, 2023 01:26 PM Reporting Lab: [address] [address] Performing Lab: [address] [address] CHOLESTEROL 134 mg/dL TRIGLYCERIDE 70 mg/dL 0-150 LDL calculated 82 mg/dL 0-129 CHOL/HDL 3.5 HDL CHOLESTEROL 38 mg/dL L 40-60 Apr 05, 2024 09:12 AM [place] LIVER FUNCTION Specimen Type: SERUM No comment entered. Ordering Provider: ULICES LUCAS Report Released Date/Time: Apr 06, 2023 01:26 PM Reporting Lab: [address] [address] Performing Lab: [address] [address] PROTEIN,TOTAL 6.4 g/dL 6.0-8.3 ALBUMIN 4.0 g/dL 3.5-5.0 ALKALINE PHOSPHATASE 60 U/L 40-150 AST 23 U/L 5-34 ALT 23 U/L BILIRUBIN, TOTAL 0.5 mg/dL 0.2-1.2 Apr 05, 2024 09:12 AM [place] CBC AND DIFF (AUTO) Specimen Type: BLOOD No comment entered. Ordering Provider: ULICES LUCAS Report Released Date/Time: Apr 06, 2023 01:26 PM Reporting Lab: [address] [address] Performing [facility]: [facility] [address] [facility] [address] WBC 6.99 10*3/uL 4.50-11.00 RBC 5.33 10*6/uL [...] 10*3/uL 0.00-0.00 Apr 05, 2024 09:12 AM [place] HEMOGLOBIN A1C PANEL Specimen Type: BLOOD Comment: [...] Apr 06, 2023 01:26 PM Reporting Lab: [facility] [address] [facility] [address] Performing Lab: [facility] [address] [facility] [address] HEMOGLOBIN A1C 6.6 H 4.0-5.6 Vital Signs: All taken on the encounter date This section contains inpatient and outpatient Vital Signs collected on the date of the Encounter. Date/Time Temperature Pulse Blood Pressure Respiratory Rate SP02 Pain Height Weight Body Mass Index Source Apr 06, 2024 11:38 AM 97.6 76 135/[address] [facility] IELD Immunizations: All administered on the encounter date This section contains immunizations associated to the Encounter. Immunization Series Date Issued Reaction Comments INFLUENZA, HIGH-DOSE, TRIVALENT, PF Apr 06 Social History: Smoking Status (Most current) and Tobacco Use (All prior to encounter date) This section includes the most current, and the historical, smoking and tobacco- related health factors from the [place] facility where the Encounter took place. Current Smoking Status This section includes the most current smoking, or tobacco-related health factor, from the [place] facility where the Encounter took place. Date/Time Current Smoking Status Comment Ebony perez Apr 06, 2024 11:30 AM [place]-TOBACCO NEVER USED [place] Advance Directives: All historical and current Section Date Range: From patient's date of to the date document was created. This section includes ALL of a patient's completed or amended [place] Advance and Rescinded Directives. The entries below indicate that a directive exists for the patient, but an actual copy is not included with this document. The data comes from all [place] facilities. Date Advance Directives Provider Source Apr 06, 2023 ADVANCE DIRECTIVE TRACEE KYLE [facility] Encounter Notes: All associated encounter notes This section contains the clinical notes associated to the Encounter. Date/Time Encounter Note(s) Provider Source Apr 06, 2024 01:23 PM ADDENDUM: LOCAL TITLE: Addendum STANDARD TITLE: ADDENDUM DATE OF NOTE: APR 06, 2024@13:23:58 ENTRY DATE: APR 06, 2024@13:23:59 AUTHOR: HEIDI VERONICA EXP COSIGNER: URGENCY: STATUS: COMPLETED msa please request last Colonoscopy and pathology results from [facility] (Dr. Giang) for pact team 5 /reggie/ HEIDI VERONICA LPN LICENSED PRACTICAL NURSE Signed: 04/06/2024 13:53 Receipt Acknowledged By: 04/06/2024 13:57 /reggie/ MAGDI FERNANDES --- Original Document --- 04/06/24 CLINICAL REMINDERS/NURSING: Advance Directive Screen MH AD: Patient has an Advance Directive on file at this [facility]. No updates are needed at this time. The patient received education about Advance Directives and written notification of his/her rights. BMI>30/>24.99 High Risk: Patient declines to discuss weight management. Patient declined weight discussion. Discussed revisiting at a future visit. Influenza Immunization: Influenza, High-Dose, Trivalent, Preservative Free (Fluzone-Syringe) Administered: INFLUENZA, HIGH-DOSE, TRIVALENT, PF Date Administered: Apr 06, 2024 11:30 Edge Polisher: SANOFI PASTEUR Lot: [id number] Exp Date: Jan 16, 2025 [facility]: [phone] Admin Route/Site: INTRAMUSCULAR/LEFT DELTOID Dosage: 0.5mL Vaccine Information Statement(s): INFLUENZA(FLU) VACC(INACTIVATED OR RECOMBINANT)VIS Feb 22, 2021 (NORTH KORE[place]) Order By: Policy Administered By: Heidi Veronica [...] full rights to use it throughout the [place] system. PRIMARY SCREEN RESULT: The Primary Screen is NEGATIVE. The individual answered never to all forms of IPV above (i.e., answered never to all 5 items) The individual accepts education and/or resources: No EDUCATION: Other: /reggie/ HEIDI VERONICA LPN LICENSED PRACTICAL NURSE Signed: 04/06/2024 11:44 HEIDI VERONICA [place] Apr 06, 2024 11:37 AM PREVENTIVE MEDICIN E NURSING NOTE: LOCAL TITLE: CLINICAL REMINDERS/NURSING STANDARD TITLE: PREVENTIVE MEDICINE NURSING NOTE DATE OF NOTE: APR 06, 2024@11:37 ENTRY DATE: APR 06, 2024@11:37:45 AUTHOR: HEIDI VERONICA EXP COSIGNER: URGENCY: STATUS: COMPLETED CLINICAL REMINDERS/NURSING Has ADDENDA Advance Directive Screen MH AD: Patient has an Advance Directive on file at this [facility]. No updates are needed at this time. The patient received education about Advance Directives and written notification of his/her rights. BMI>30/>24.99 High Risk: Patient declines to discuss weight management. Patient declined weight discussion. Discussed revisiting at a future visit. Influenza Immunization: Influenza, High-Dose, Trivalent, Preservative Free (Fluzone-Syringe) Administered: INFLUENZA, HIGH-DOSE, TRIVALENT, PF Date Administered: Apr 06, 2024 11:30 Edge Polisher: [employer] PASTEUR Lot: [id number] Exp Date: Jan 16, 2025 [facility]: [phone] Admin Route/Site: INTRAMUSCULAR/LEFT DELTOID Dosage: 0.5mL Vaccine Information Statement(s): INFLUENZA(FLU) VACC(INACTIVATED OR RECOMBINANT)VIS Feb 22, 2021 ([place]ORE[place]) Order By: Policy Administered By: Heidi Veronica [...] full rights to use it throughout the [place] system. PRIMARY SCREEN RESULT: The Primary Screen is NEGATIVE. The individual answered never to all forms of IPV above (i.e., answered never to all 5 items) The individual accepts education and/or resources: No EDUCATION: Other: /sammy VERONICA LPN LICENSED PRACTICAL NURSE Signed: 04/06/2024 11:44 04/06/2024 ADDENDUM STATUS: COMPLETED msa please request last Colonoscopy and pathology results from [facility] (Dr. Giang) for pact team 5 /sammy VERONICA LPN LICENSED PRACTICAL NURSE Signed: 04/06/2024 13:53 Receipt Acknowledged By: 04/06/2024 13:57 /sammy FERNANDES 04/06/2024 ADDENDUM STATUS: COMPLETED [place] [facility] [place] and pathology [place]. /sammy FERNANDES Signed: 04/06/2024 14:20 HEIDI VERONICA [place] Apr 06, 2024 11:26 AM PHYSICIAN ASSISTAN T NOTE: LOCAL TITLE: PA NOTE STANDARD TITLE: PHYSICIAN DRONE PILOT NOTE DATE OF NOTE: APR 06, 2024@11:26 [...] on HCTZ 3) C/V Stable - never NV 4) Neuro Stable - never CVA/TIA 5) [...] - labs before Suicide Screen: C-SSRS Screening Epworth-Suicide Severity Rating Scale (C-SSRS Screener) 1. Over [...] Not worried about housing near future [facility] reports the following: Within the past 12 [...] nl SENSORY CHECK: Includes 10 gram Monofilament (Erath-Vicente) test of sensation. Intact (Greater than or [...] drying. /es/ RICK BONILLA PA-C STAFF PHYSICIAN DRONE PILOT Signed: 04/06/2024 11:45 RICK BONILLA
--- OUTSIDE RECORDS SUMMARY | 2024-07-07 15:22 | XMS_ITS | Encounter Summary ---
Author Name [facility] [place] Organization [facility] [place] Address [address] [place] [address] Care Team Providers Care Paint Grinder Name Role Phone ULICES MARIA Primary Care [...] PART A Oct 18, 2021 PART A [id number] [facility] [phone] SIMBA KIDD PATIENT MEDICARE (WNR) MEDICARE (M) PART B Oct 18, 2021 PART B [id number] [facility] SIMBA KIDD PATIENT FOR LIFE TFL* Oct 18, 2021 [id number] SIMBA KIDD PATIENT [facility] (WNR) TRICA RE(WN R) November 17, 2016 (WNR) [id number] [phone] KLINGE,WA YNE PATIENT Selected Encounter This section includes the information on record at [place] for the Encounter. Date/Time Encounter Type Encounter Description Reason Pro vider Source Feb 10, 2024 12:00 AM Outpatient Encounter EVENT (HISTORICAL) IHE Encounter Template Text not used by [place] Plan of Treatment: Future Appointments (+ 6 months) and Future Tests (+/- 45 days) The Plan of Treatment section includes future care activities for the patient from all [place] treatmentfacilities. This section includes future appointments and future orders which are active, pending or scheduled. Future Appointments This section includes appointments that were scheduled to occur 6 months from the date of the Encounter, up to a maximum of 20 appointments. The data comes from all [place] treatment facilities. Appointment Date/Time Appointment Type Appointme nt Facility Name Apr 06, 2024 11:30 AM AMBULATORY - MEDICINE [facility] Apr 26, 2024 03:00 PM [facility] Social History: Smoking Status (Most [...] Facil ity Apr 06, 2023 10:22 AM [place]-TOBACCO NEVER USED [facility] Advance Directives: All historical and current Section Date Range: From patient's date of to the date document was created. This section includes ALL of a patient's completed or amended [place] Advance and Rescinded Directives. The entries below indicate that a directive exists for the patient, but an actual copy is not included with this document. The data comes from all [place] facilities. Date Advance Directives Provider Source Apr [...] REQUIRED Electronically Filed: 02/27/2024 by: [facility]EL FARLEY [facility] Feb 10, 2024 12:00 AM NONVA NOTE: LOCAL TITLE: NON-VA OUTPATIENT NOTES STANDARD TITLE: NONVA NOTE DATE OF NOTE: FEB 10, 2024 ENTRY DATE: FEB 27, 2024@06:56:54 AUTHOR: FIDEL WATKINS EXP COSIGNER: URGENCY: STATUS: COMPLETED VistA Imaging - Scanned Document SCANNED DOCUMENT SIGNATURE NOT REQUIRED Electronically Filed: 02/27/2024 by: FIDEL FARLEY [facility] Feb 10, 2024 12:00 AM NONVA NOTE: LOCAL TITLE: NON-VA OUTPATIENT NOTES STANDARD TITLE: NONVA NOTE DATE OF NOTE: FEB 10, 2024 ENTRY DATE: FEB 27, 2024@07:03:49 AUTHOR: FIDEL WATKINS EXP COSIGNER: URGENCY: STATUS: COMPLETED VistA Imaging - Scanned Document SCANNED DOCUMENT SIGNATURE NOT REQUIRED Electronically Filed: 02/27/2024 by: FIDEL FARLEY [facility]
--- OUTSIDE RECORDS SUMMARY | 2024-07-07 15:22 | XMS_ITS | Encounter Summary ---
Author Name [facility] Organization [facility] Address [address] [place] [address] Care Team Providers Care Office Support Specialist Name Role Phone ULICES MARIA Primary [...] PART A Oct 18, 2021 PART A [id number] [facility] SIMBA KIDD PATIENT MEDICARE (WNR) MEDICARE (M) PART B Oct 18, 2021 PART B [id number] [facility] SIMBA KIDD PATIENT FOR LIFE TFL* Oct 18, 2021 [id number] SIMBA KIDD PATIENT [facility] (WNR) TRICA RE(WN R) November 17, 2016 (WNR) [id number] SIMBA KIDDNE PATIENT Selected Encounter This section includes the information on record at [place] for the Encounter. Date/Time Encounter Type Encounter Description Reason Pro vider Source May 18, 2024 04:29 PM Outpatient Encounter PRIMARY CARE/MEDICINE IHE Encounter Template Text not used by MD Social History: Smoking Status (Most current) and Tobacco Use (All prior to encounter date) This section includes the most current, and the historical, smoking and tobacco- related health factors from the [place] facility where the Encounter took place. Current Smoking Status This section includes the most current smoking, or tobacco-related health factor, from the [place] facility where the Encounter took place. Date/Time Current Smoking Status Comment Facil ity Apr 06, 2023 10:22 AM VA-TOBACCO NEVER USED [place] [facility] Advance Directives: All historical and current Section Date Range: From patient's date of to the date document was created. This section includes ALL of a patient's completed or amended [place] Advance and Rescinded Directives. The entries below indicate that a directive exists for the patient, but an actual copy is not included with this document. The data comes from all [place] facilities. Date Advance Directives Provider Source Apr 06, 2023 ADVANCE DIRECTIVE TRACEE KYLE [facility] Encounter Notes: All associated encounter notes This [...]
--- OUTSIDE RECORDS SUMMARY | 2024-07-07 15:23 | XMS_ITS | Patient Health Record ---
Author Organization [facility] Address [address] [place] [address] Care Team Providers Care Pharmacognosy Teacher Name Role Phone RICK RENE Primary Care Provider Johnathan John [phone] ALLERGIES No Known Allergies REASON FOR REFERRAL No Information MEDICATIONS Medication SIG (Take, Route, Frequency, Duration) Notes Start Date End Date Status Iron 325 (65 Fe) MG 1 tablet Orally Once a day Active Omeprazole 20 MG TAKE 1 CAPSULE BY [facility] EVERY MORNING for 90 Active Multi [...] or abscess without bleeding (K57.32) Active confirmed 1961236 Problem Colorectal cancer (C19) Active confirmed 164547823 Problem Encounter for screening for malignant neoplasm of colon (Z12.11) Active confirmed 123525201 Problem Iron deficiency anemia, unspecified iron deficiency anemia type (D50.9) Active confirmed 33815090 Problem Reflux esophagitis (K21.0) Active confirmed 573899915 Problem 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 653817838 Problem Gastroesophageal reflux disease with esophagitis without hemorrhage (K21.00) Active confirmed 557101370 Problem 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 Méndez esophagus (863786069) PLAN OF TREATMENT Future Test Test Name Order Date UPPER GI ENDOSCOPY 06/25/2018 COLONOSCOPY 06/25/2018 UPPER GI ENDOSCOPY 11/13/2021 Insurance Providers Payer Name Payer Address Payer Phone Subscriber Number Group Number Insured Name Patient Relationship to Insured Coverage Start Date Coverage End Date MEDICARE OF [place] [address] [place] [address] [id number] BENJAMIN KIDD Self - patient is the insured [employer] [address] [place] [address] [id number] BENJAMIN KIDD Self - patient is the insured MEDICAL (GENERAL) HISTORY Medical History History ICD Code Screening colonoscopy 02-14- 009--negative except for mild sigmoid diverticulosis and internal hemorrhoids Diverticulitis on CT scan 2015--treated with inpatient and outpatient antibiotics NIDDM Hyperlipidemia Denies RI,CVA,Lung disease,renal disease HTN Iron def anemia--EGD in [...]
--- OUTSIDE RECORDS SUMMARY | 2024-07-07 15:23 | XMS_ITS ---
Author Organization [facility] Address [address] [place] [address] Care Team Providers Care Multimedia Journalist Name Role Phone Giovanni Choe Primary Care Provider Unav ailable Maurizio Rivas Unavailable [phone] Allergies No Known Allergies REASON FOR VISIT [...] a day for 30 day(s) 01/25/2024 Active Emyfwz-Wxswubqfn-VXU Complex - as directed Orally 01/25/2024 Active [...] W/U Status Risk Notes Problem Plantar wart (11395447) Plantar wart (B07.0) Active confirmed Problem Type 2 diabetes mellitus without complication (994957801) Type 2 diabetes mellitus without complication (E11.9) Active confirmed Vital Signs Height 6ft 1 in in 02/05/2024 Weight 195 lbs lbs 02/05/2024 BMI 25.72 kg/m2 02/05/2024 Procedures Procedure Date Ordered Date Performed Result Body Sit e 62988-Dyrc Destruction, 1-14 02/05/2024 N/A Encounters Encounter Location Date Provider Diagnosis [facility] [address] [place] [address] 02/05/2024 Maurizio Rivas Plantar wart B07.0 ; [...] days Pending Test Test Name Order Date 97326-Xjuo Destruction, 1-14 02/05/2024 Next Appt Details Follow Up: prn, Reason: Procedure Notes * Category Sub-Category Detail Notes Wart Treatment Procedure Verrucae were de brided to pin-point bleeding margins with sterile 15 surgical blade, silver nitrate chemocautery applied, recomm. immune-boosting meds such as zinc, recomm. follow up with topical chemosurgical agents, Pt defers any other forms of tx (30967) , Verrucae were debrided to pin-point bleeding margins with sterile 15 surgical blade, silver nitrate chemocautery applied, recomm. immune-boosting meds such as zinc, recomm. follow up with topical chemosurgical agents, Pt defers any other forms of tx (97078) Progress Notes * Michael MARTINEZ DDOB: (68 yo M)Acc No.[id number]:02/05/2024 Progress Notes Patient:?Michael Martinez D Provider:?Maurizio Rivas DPM :1955???Age:68 Y???Sex:Male Festus e:02/05/2024 Address:[address] [place] [address] Pcp:HANY Riggins Subjective: * Chief Complaints: * [...] 6-7x /week. ?Marital status: . 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 * Medications:?TakingTrulicity 3 MG/0.5ML Solution [...] - Tablet 1 tablet Orally Once a dxrHeyvmf-Ppsprzizl-IWZ Complex - Tablet as directed Orally Pentoxifylline [...] Tablet 1 tablet Orally Once a dayTaking Wtmbyq-Yadvaelkz-WXQ Complex - Tablet as directed Orally Taking [...] Pt defers any other forms of tx (07395) , Verrucae were debrided to pin-point bleeding margins with sterile 15 surgical blade, silver nitrate chemocautery applied, recomm. immune-boosting meds such as zinc, recomm. follow up with topical chemosurgical agents, Pt defers any other forms of tx (62542).? * Procedure Codes:?68808 Wart Destruction, 1-14 * Preventive Medicine:? ??Counseling:?Discussion:?-03: [...] Rivas DPM Date:?2023 Generated for Lucero rodriguez/Luiza/Mic on:?07/07/2024 03:22 PM EST History and Physical Notes * [...] person, place, and t john Vascular DP PULSES (B): 3/4, B/L PT PULSES (B): 3/4, B/L CAPILLARY FILL TIME: immediate, all digi ts, B/L TEMPERTURE GRADIENT (C): normal, warm to cool, proximal to distal, B/L, B/L TROPHIC CONDITION-TEXTURE/ELASTICITY/TURGOR/HAIR GROWTH (B): normal, B/L EDEMA (C): absent, B/L PIGMENTATION: normal, B/L
--- OUTSIDE RECORDS SUMMARY | 2024-07-07 15:23 | XMS_ITS | Patient Health Record ---
Author Organization [facility] Address [address] [facility] [place] [address] Care Team Providers Care Station Attendant Name Role Phone Giovanni Choe Primary Care Provider Unav ailable Maurizio Rivas Unavailable [phone] Allergies No Known Allergies Results Component Value [...] meal s Orally Twice a day Active Axeyjk-Mdwxlotau-IKB Complex - as directed Orally 01/25/2024 Active [...] W/U Status Risk Notes Problem Plantar wart (97346732) Plantar wart (B07.0) Active confirmed Problem Type 2 diabetes mellitus without complication (162940040) Type 2 diabetes mellitus without complication (E11.9) Active confirmed Vital Signs Height 6ft 1 in in 02/05/2024 Weight 195 lbs lbs 02/05/2024 BMI 25.72 kg/m2 02/05/2024 Procedures Procedure Date Ordered Date Performed Result Body Sit e 68405-Yaoi Destruction, 1-14 02/05/2024 N/A Encounters Encounter Location Date Provider Diagnosis [facility] [address] [place] [address] 02/05/2024 Maurizio Rivas Plantar wart B07.0 ; [...] Treatment Pending Test Test Name Order Date 52373-Flgw Destruction, -02/05/2024 Insurance Providers Payer Name Payer Address Payer Phone Subscriber Number Group Number Insured Name Patient Relationship to Insured Coverage Start Date Coverage End Date Medicare [employer] [address] [facility] [place] [address] [id number] Michael Martinez Self - patient is the insured for Life [address] [place] [address] [id number] Michael Martinez Self - patient is the [...]
[2024-07-07 16:01] VITALS: BP 122/78; PULSE 72; O2SAT 98; BMI 25.6
--- NOTE | 2024-07-07 16:03 | AM.OFFVISMDC ---
Intake Vital Signs 07/07/24 16:01 07/07/24 16:07 Height 6 ft 1 in Weight 194 lb BMI 25.6 25.6 BP 122/78 Blood Pressure Location Rt brachial Position Sitting Pulse 72 Pulse Source Pulse Oximeter Pulse Oximetry (%) 98 Intake Visit Reasons: MWV- paperwork mailed Allergies No Known Allergies [No Known Allergies*] Allergy (Verified 06/27/24 13:08) HPI MWV- paperwork mailed HPI Details AWV: [facility]PP in scan pile, [place] [facility] scan pile. [facility] Medical History Diabetes GERD (gastroesophageal reflux disease) Barretts esophagus Patellofemoral arthritis of left knee Type 2 diabetes mellitus with diabetic polyneuropathy Subjective memory complaints Enlarged prostate Renal insufficiency Iron deficiency Hyperlipidemia HTN (hypertension) Hyperlipidemia LDL goal <100 Surgical History History of right inguinal hernia repair History of left knee surgery History of shoulder surgery History of tonsillectomy History of nasal surgery Hx of esophagogastroduodenoscopy Hx of colonoscopy History of foot surgery Family History Father Diabetes Mother Lung cancer Son No problems noted. Son No problems noted. Son No problems noted. Son No problems noted. Son No problems noted. Son No problems noted. Daughter No problems noted. Daughter No problems noted. Paternal Grandmother Diabetes Social History Household Members: Spouse Housing: House Alcohol intake: current Alcohol intake frequency: holidays/special occasions only Alcohol type: beer, wine, hard liquor and other Patient Tobacco Use Status: Never used Tobacco e-Cigarette/Vaping Use: Never Used Second Hand Smoke Exposure: No service: Yes Current occupational status: retired Cognitive needs: No Hearing needs: No Vision needs: No Questionnaire Medicare Wellness Checkup [age] 65-70 What gender do you identify with?: male During the past 4 weeks, how much have you been bothered by emotional problems such as feeling anxious, depressed, irritable, sad or downhearted, and blue?: slightly During the past 4 weeks, has your physical & emotional health limited your social activities with family, friends, neighbors, or groups?: not at all During the past 4 weeks, how much bodily pain have you generally had?: mild pain During the past 4 weeks, was someone available to help you if you needed & wanted help?: yes, as much as I wanted During the past 4 weeks, what was the hardest physical activity you could do for at least 2 minutes?: very heavy Can you get to places out of walking distance without help? (For eg., can you travel alone on buses, taxis or drive your car?): Yes Can you go shopping for groceries or clothes without someone's help?: Yes Can you prepare your own meals?: Yes Can you do your housework without help?: Yes Because of any health problems, do you need the help of another person with your personal care needs such as eating, bathing, dressing or getting around the house?: No Can you handle your own money without help?: Yes During the past 4 weeks, how would you rate your health in general?: very good During the past 4 weeks how have things been going for you?: very well; could hardly better Are you having difficulties driving your car?: no Do you always fasten your seat belt when you are in a car?: yes, usually During past 4 weeks, have you been bothered by the following: never: Falling or dizzy when standing up, Sexual problems?, Trouble eating well?, Teeth or denture problems?, Problems using the telephone? and Tiredness or fatigue? Have you fallen 2 or more times in the past year?: No Are you afraid of falling?: No Are you a smoker?: no During the past 4 weeks, how many drinks of wine, beer, or other alcoholic beverages did you have?: 1 drink or less per week Do you exercise for about 20 minutes 3 or more times a week?: yes, most of the time Have you been given information to help with the following?: no: Hazards in your house that might hurt you? and no: Keeping track of your medications? How often do you have trouble taking medicines the way you have been told to take them?: I always take medicine as prescribed How confident are you that you can control & manage most of your health problems?: very confident What is your race?: White Mini Mental State Exam (MMSE) Orientation What is the (year) (season) (date) (day) (month)?: year, season, date, day and month Where are we (state) (county) (town or city) (hospital) (floor)?: state and county Registration Name of 3 unrelated objects clearly and slowly, then ask patient to repeat all 3 of them. (1st repeat determines score. Make sure they can repeat all three): object 1, object 2 and object 3 Attention & Calculation (CHOOSE ONE) Spell WORLD backwards (DLROW): 5 letters Recall Ask patient to repeat the 3 items from question #3.: object 1, object 2 and object 3 Language Show patient a wristwatch & ask what it is. Repeat for pencil.: watch and pencil Ask the patient to repeat the phrase 'No ifs, ands, or buts' after you.: correct Ask the patient to 'take a piece of paper with their right hand' 'fold paper in half' 'place paper on floor': take paper in right hand, fold paper in half and place paper on floor Print the sentence 'CLOSE YOUR EYES' on a piece. If patient actually closes eyes then score.: followed written direction Give patient a blank piece of paper & ask to write a sentence. Score if it contains a noun & verb.: sentence contains subject and verb Ask patient to copy figure of intersecting pentagons exactly. Score if all 10 angles & 2 intersects are included.: all 10 angles present & 2 are intersected Score Score: 27 Activity of Daily Living Bathing - sponge bath, tub bath or shower: receives no assistance (gets in/out by self, if usual bathing means Dressing - getting clothes from closets & drawers, including inner/outer garments & fasteners.: gets clothes & gets completely dressed without help Toileting - going to the 'toilet room' for urine/bowel elimination & cleaning self/arranging clothes: goes to toilet room, cleans self, arranges clothes without help Transfer: moves in & out of bed and chair without help (may use support object) Continence: controls urination/bowel movements completely by self Feeding: feeds self without help Total Score: 0 Information obtained from: patient Using telephone: independent Traveling: independent Shopping: independent Preparing meals: independent Housework: independent Taking medicine: independent Managing money: independent PHQ-9 Over the last 2 weeks, how often have you been bothered by any of the following problems? 91197 - PHQ-9 Billing: Patient declined-do not bill Source: Developed by Drs. Johnathan Haas, Rosalia Fonseca, Abelardo Smith and colleagues, with an educational ignacio from [employer]. Physical Exam Vital Signs: Last Vital Signs Pulse 72 07/07/24 16:01 BP 122/78 07/07/24 16:01 Pulse Ox 98 07/07/24 16:01 BMI result Body Mass Index 25.6 Neuro Other: passed whisper test, neg rhomberg, able to stand up from sitting position, able to tandem walk Assessment & Plan Assessment & Plan (1) Encounter for annual wellness visit (AWV) in Medicare patient: Code(s): Z00.00 - Encounter for general adult medical examination without abnormal findings Plan . Coding Level of Care Code Medicare First (G0438) Diagnoses Encounter for annual wellness visit (AWV) in Medicare patient Z00.00 CPT Codes Advance Care Planning - Time spent: 1-15 minutes, on File ([id number]) Advance Care Planning Forms completed: Health Care Proxy (filled out), MOLST (filled out) and Living will (done according to pt) Time spent: 1-15 minutes, on File Actual minutes spent: 10
[2024-07-07 16:07] VITALS: BMI 25.6
== END 2024-07-07 16:49 | disposition home or self-care (01) ==
PROVIDERS: PCP Nurse Practitioner Family; Visit Provider Nurse Practitioner Family
DX: Z00.00 Encounter for general adult medical examination without abnormal findings (principal)

== ENCOUNTER → 2024-07-07 15:19 | Outpatient (BNVA) | payer MEDICARE, OTHER, SELFPAY | PROVIDERS: PCP Nurse Practitioner Family; Visit Provider Nurse Practitioner Family ==

== ENCOUNTER 2024-08-26 09:23 | Outpatient (AMB) | payer MEDICARE, OTHER, SELFPAY ==
--- NOTE | 2024-08-26 09:25 | A.OFFVIS_ITS ---
Vital Signs 08/26/24 09:31 Height 6 ft 1 in Weight 194 lb BMI 25.6 Intake Visit Reasons: OV-LT knee f/u Intake Note: Michael is a 68 year old male who presents today for a follow up of his left knee OA, last durolane gel injection 06/09/24. Patient reports he is having pain in is knee since getting the injection. He mentions that his pain is on the lateral aspect of the knee. Patient reports his ache is worse at night when laying down on his back and on his side. He tried taking Ibuprofen with relief. Allergies No Known Allergies [No Known Allergies*] Allergy (Verified 08/26/24 09:30) HPI HPI OV-LT knee f/u: Details: Mr. Martinez he is a 68-year-old male who presents to the office today for follow- up of left lateral knee pain. He reports that while he is standing/walking/ambulatory that he does not have any pain. His pain is mainly present at night with a deep aching pain. This often makes it difficult for him to sleep at night. He did have a Durolane injection on 06/09/2024 which gave him complete relief for about 4 weeks. Additionally, he has recently had a hammertoe surgery on the right foot and is in a walking boot. He reports that his gait has been affected by this for some time prior to the surgery and additionally afterwards. This has been putting strain on his lower back which has also been causing pain. [facility] Medical History Diabetes GERD (gastroesophageal reflux disease) Barretts esophagus Patellofemoral arthritis of left knee Type 2 diabetes mellitus with diabetic polyneuropathy Subjective memory complaints Enlarged prostate Renal insufficiency Iron deficiency Hyperlipidemia HTN (hypertension) Hyperlipidemia LDL goal <100 Surgical History History of right inguinal hernia repair History of left knee surgery History of shoulder surgery History of tonsillectomy History of nasal surgery Hx of esophagogastroduodenoscopy Hx of colonoscopy History of foot surgery Family History Father Diabetes Mother Lung cancer Son No problems noted. Son No problems noted. Son No problems noted. Son No problems noted. Son No problems noted. Son No problems noted. Daughter No problems noted. Daughter No problems noted. Paternal Grandmother Diabetes Social History Household Members: Spouse Housing: House Alcohol intake: current Alcohol intake frequency: holidays/special occasions only Alcohol type: beer, wine, hard liquor and other Patient Tobacco Use Status: Never used Tobacco e-Cigarette/Vaping Use: Never Used Second Hand Smoke Exposure: No service: Yes Current occupational status: retired Cognitive needs: No Hearing needs: No Vision needs: No Review of Systems Const All systems reviewed & are unremarkable except as noted in HPI and below Physical Exam Vital Signs: BMI result Body Mass Index 25.6 Const General: cooperative, healthy appearing and no acute distress Resp Effort & Inspection: normal respiratory effort and able to speak in complete sentences Cardio Rate: regular rate Peripheral pulses: Peripheral pulses 2+ throughout Skin Lesions: no lesions Rashes: no rashes Extrem Other: Left knee: Normal to inspection. No ecchymosis, erythema, or joint effusion. No tenderness to palpation along the medial or lateral joint lines. Full knee extension and flexion. Mild crepitus felt with ROM. Negative Eryn's. NVI. Assessment & Plan Assessment & Plan (1) Left knee pain: Code(s): M25.562 - Pain in left knee Category: Medical (2) Arthritis of left knee: Code(s): M17.12 - Unilateral primary osteoarthritis, left knee Category: Medical Plan Mr. Martinez he is a 68-year-old male who presents to the office today for follow- up of left lateral knee pain. He reports that while he is standing/walking/ambulatory that he does not have any pain. His pain is mainly present at night with a deep aching pain. This often makes it difficult for him to sleep at night. He did have a Durolane injection on 06/09/2024 which gave him complete relief for about 4 weeks. Additionally, he has recently had a hammertoe surgery on the right foot and is in a walking boot. He reports that his gait has been affected by this for some time prior to the surgery and additionally afterwards. This has been putting strain on his lower back which has also been causing pain. At this time we discussed a referral to pain management for further evaluation and treatment of his left knee. He would like to continue recovering from his hammertoe surgery on the right foot and see if his symptoms improve after he returns back to a normal gait pattern. Should he continued to have left knee pain that the next step would be referral to pain management in which I will start today for evaluation of geniculate nerve blocks and/or further evaluation of lower back pathology contributing to his knee pain. He will follow up with Orthopedics p.r.n., sooner if needed. Orders: Referrals Pain Management Referral M17.12 - Unilateral primary osteoarthritis, left knee, M25.562 - Pain in left knee Coding Level of Care Code Est Pt Level 3 (87738) Diagnoses Left knee pain M25.562 Arthritis of left knee M17.12
[2024-08-26 09:31] VITALS: BMI 25.6
--- OUTSIDE RECORDS SUMMARY | 2024-08-26 09:49 | XMS_ITS | Clinical Summary ---
Author Organization [facility] Address [address] [facility] [address] [place] [address] Phone Care Team Providers Care Electromechanical Inspector Name Role Phone Giovanni Henriquez NP Primary Care Provider [phone] Allergies No known active allergies Medications atorvastatin (LIPITOR) 20 MG tablet Take 20 mg by mouth 1 (one) time each day Active Dulaglutide (Trulicity) 1.5 MG/0.5ML solution pen-injector Inject under the skin Active ferrous sulfate 325 (65 Fe) MG tablet Take 325 mg by mouth 1 (one) time each day with breakfast Active hydroCHLOROthia zide 25 MG tablet Take 25 mg by mouth 1 (one) time each day Active lisinopril 10 MG tablet Take 10 mg by mouth 1 (one) time each day Active metFORMIN (GLUCOPHAGE) 1000 MG tablet Take 3 mg by mouth 2 (two) times a day with meals Active Multiple Vitamin (multivitamin) tablet Take 1 tablet by mouth 1 (one) time each day Active [place]-3 Fatty Acids (Fish Oil) 1000 MG capsule delayed-release Take by mouth 1 (one) time each day Active omeprazole (PriLOSEC) [address] capsule Take 20 mg by mouth 1 (one) time each day Do not crush or chew. Active sildenafil (VIAGRA) 25 MG tablet TAKE 1 TABLET BY MOUTH 30 MINUTES TO 4 HOURS BEFORE SEXUAL ACTIVITY NEEDED 2 Active Active Problems No known active problems Family History Medical History Relation Comments Cancer Mother Diabetes Paternal Grandmother Relation Status Comments Mother Paternal Grandmother Social History Tobacco Use Types Packs/Day Years Used Date Smoking Tobacco: Never Smokeless Tobacco: Never Tobacco Cessation:Counseling Given: No Alcohol Use Standard Drinks/Week Comments Yes 0 (1 standard drink = 0.6 oz pur e alcohol) Occasions Sex and Gender Information Value Date Recorded Sex Assigned at Not on file Legal Sex Male 10:27 AM EST Gender Identity Not on file Sexual Orientation Not on file Last Filed Vital Signs Vital Sign Reading Time Taken Comments Blood Pressure 116/56 03/31/2022 1:09 PM EDT Pulse 75 03/31/2022 1:09 PM EDT Temperature - - Respiratory Rate - - Oxygen Saturation 96% 03/31/2022 1:09 PM EDT Inhaled Oxygen Concentration - - Weight 87.8 kg (193 lb 9.6 oz) 03/31/2022 1:09 P M EDT Height - - Body Mass Index - - Plan of Treatment Health Maintenance Due Date Last Done Comments Pneumococcal Vaccine: 65+ Ye ars (1 of 2 - PCV) 1962 Colorectal Cancer Screening: Annual FOBT 2005 Colorectal Cancer Screening: Colonoscopy 2005 Colorectal Cancer Screening: Sigmoidoscopy 2005 Influenza Vaccine (#1) 2024 Hepatitis B Vaccine Aged Out No longe r eligible based on patient's age to complete this topic Insurance MEDICARE [facility]ICARE [facility] Care Teams Electromechanical Inspector Relationship Specialty Start Date End Date Giovanni Henriquez NP [facility] [place] [address] PCP - General Nurse Practitioner 06/21/21
--- OUTSIDE RECORDS SUMMARY | 2024-08-26 09:49 | XMS_ITS | Patient Health Record ---
Author Organization [facility] Address [address] [place] [address] Care Team Providers Care Senior Wind Turbine Technician Name Role Phone RICK RENE Primary Care Provider Johnathan John Unavailable [phone] ALLERGIES No Known Allergies REASON FOR REFERRAL No Information MEDICATIONS Medication SIG (Take, Route, Frequency, Duration) Notes Start Date End Date Status Iron 325 (65 Fe) MG 1 tablet Orally Once a day Active Multi Vitamin/Minerals - 1 Orally QD [...] me al Orally Twice a day Active Omeprazole 20 MG TAKE ONE CAPSULE BY MOUTH EVERY DAY IN THE MORNING for 90 Active Trulicity 1.5 MG/0.5ML as directed Subcutaneous [...] or abscess without bleeding (K57.32) Active confirmed 8156444 Problem Colorectal cancer (C19) Active confirmed 851115645 Problem Encounter for screening for malignant neoplasm of colon (Z12.11) Active confirmed 605197816 Problem Iron deficiency anemia, unspecified iron deficiency anemia type (D50.9) Active confirmed 08916786 Problem Reflux esophagitis (K21.0) Active confirmed 395203741 Problem 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 113862622 Problem Gastroesophageal reflux disease with esophagitis without hemorrhage (K21.00) Active confirmed 635026480 Problem 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 Méndez esophagus (368398822) PLAN OF TREATMENT Future Test Test Name Order Date UPPER GI ENDOSCOPY 06/25/2018 COLONOSCOPY 06/25/2018 UPPER GI ENDOSCOPY 11/13/2021 Insurance Providers Payer Name Payer Address Payer Phone Subscriber Number Group Number Insured Name Patient Relationship to Insured Coverage Start Date Coverage End Date MEDICARE OF [place] [address] [place] [address] [id number] BENJAMIN KIDD Self - patient is the insured [email or web address] [address] [place] [address] [id number] BENJAMIN KIDD Self - patient is the insured MEDICAL (GENERAL) HISTORY Medical History History ICD Code Screening colonoscopy 009--negative except for mild sigmoid diverticulosis and internal hemorrhoids Diverticulitis on CT scan 2015--treated with inpatient and outpatient antibiotics NIDDM Hyperlipidemia Denies NC,CVA,Lung disease,renal disease HTN Iron def anemia--EGD in [...]
--- OUTSIDE RECORDS SUMMARY | 2024-08-26 09:49 | XMS_ITS | Patient Health Record ---
Author Organization [facility] Address [address] [facility] [place] [address] Care Team Providers Care Automotive Glass Mechanic Name Role Phone Giovanni Choe Primary Care Provider Unav ailable Maurizio Rivas Unavailable [phone] Allergies No Known Allergies Results Component Value [...] meal s Orally Twice a day Active Utfqnv-Jcpbpncvf-GMG Complex - as directed Orally 01/25/2024 Active [...] W/U Status Risk Notes Problem Plantar wart (55718054) Plantar wart (B07.0) Active confirmed Problem Type 2 diabetes mellitus without complication (444736024) Type 2 diabetes mellitus without complication (E11.9) Active confirmed Vital Signs Height 6ft 1 in in 02/05/2024 Weight 195 lbs lbs 02/05/2024 BMI 25.72 kg/m2 02/05/2024 Procedures Procedure Date Ordered Date Performed Result Body Sit e 05722-Swtk Destruction, 1-14 02/05/2024 N/A Encounters Encounter Location Date Provider Diagnosis [facility] [place] [address] [place] [address] 02/05/2024 Maurizio Rivas Plantar wart B07.0 ; [...] Treatment Pending Test Test Name Order Date 34156-Wzeg Destruction, -02/05/2024 Insurance Providers Payer Name Payer Address Payer Phone Subscriber Number Group Number Insured Name Patient Relationship to Insured Coverage Start Date Coverage End Date Medicare National [employer] [address] [place] [address] [id number] Michael Martinez Self - patient is the insured for Life [address] [place] [address] [id number] Michael Martinez Self - patient is the [...]
--- OUTSIDE RECORDS SUMMARY | 2024-08-26 09:49 | XMS_ITS ---
Author Organization [facility] Address [address] [place] [address] Care Team Providers Care Consulting It Architect Name Role Phone Giovanni Choe Primary Care Provider Unav ailable Maurizio Rivas Unavailable [phone] Allergies No Known Allergies REASON FOR VISIT [...] a day for 30 day(s) 01/25/2024 Active Ovhofq-Psqaqfcmk-GEO Complex - as directed Orally 01/25/2024 Active [...] W/U Status Risk Notes Problem Plantar wart (30043785) Plantar wart (B07.0) Active confirmed Problem Type 2 diabetes mellitus without complication (614829516) Type 2 diabetes mellitus without complication (E11.9) Active confirmed Vital Signs Height 6ft 1 in in 02/05/2024 Weight 195 lbs lbs 02/05/2024 BMI 25.72 kg/m2 02/05/2024 Procedures Procedure Date Ordered Date Performed Result Body Sit e 29220-From Destruction, 1-14 02/05/2024 N/A Encounters Encounter Location Date Provider Diagnosis [facility] [place] [address] [place] [address] 02/05/2024 Maurizio Rivas Plantar wart B07.0 ; [...] days Pending Test Test Name Order Date 55809-Vhvt Destruction, 1-14 02/05/2024 Next Appt Details Follow Up: prn, Reason: Procedure Notes * Category Sub-Category Detail Notes Wart Treatment Procedure Verrucae were de brided to pin-point bleeding margins with sterile 15 surgical blade, silver nitrate chemocautery applied, recomm. immune-boosting meds such as zinc, recomm. follow up with topical chemosurgical agents, Pt defers any other forms of tx (90392) , Verrucae were debrided to pin-point bleeding margins with sterile 15 surgical blade, silver nitrate chemocautery applied, recomm. immune-boosting meds such as zinc, recomm. follow up with topical chemosurgical agents, Pt defers any other forms of tx (01597) Progress Notes * Michael MARTINEZ DDOB: (68 yo M)Acc No.[id number]:02/05/2024 Progress Notes Patient:?Michael MARTINEZ D Provider:?Maurizio Rivas DPM :1955???Age:68 Y???Sex:Male Festus e:02/05/2024 Address:[address] [place] [address] Pcp:HANY Riggins Subjective: * Chief Complaints: * ???Wart(s)Skin problem(s) * HPI: ???Skin problems:?Pt States PCP Visit: ?DATE?10/19/2023 ?Nature:?dryness , scaling.?Location:?B/L .?Duration:?several days.?Course:?worse.? * ROS:?General/Constitutional:?Nausea?denies.?Vomiting?denies.?Hunger Thirst?denies.?Loss appetite?denies.?Chills?denies.?Fatigue?denies.?Fever?denies.?Night Sweats?denies.?Unexplained weight loss?denies.?Unexplained weight gain?denies.?HEENTM:?Dentures?denies.?Dizziness?denies.?Glasses/contacts??admits.?Retinopathy?de nies.?Blurred/double vision?denies.?TMJ?denies.?Discharge/drainage?denies.?Implants?admits.?Sore throat denies.?Dental implants?denies.?Hard of hearing ?admits .?Difficulty chewing/swallowing/speaking?denies.?Nose bleeds?denies.?Sore mouth?denies.?Respiratory:?On O xygen?denies.?Pneumonia/pleurisy?denies.?Bronchitis?denies.?Emphysema?denies.?Co ughing?denies.?Cough blood?denies.?Shortness of breath?denies.?Wheezing?denies.?Cardiovascular:?Pacemaker?denies.?MVP?denies.?WPW?denies.?CHF?denies.?Heart attack?denies.?Septal defect?denies.?Rapid beat?denies.?Chest pain ?denies.?Atrial Fib.?denies.?Murmur/Palpitations?denies.?Gastrointestinal:?Hemorrhoids?denies.?Stomach/Abdominal pain?denies.?Dark blood stool?denies.?Irritable bowel ?denies.?Constipation?denies.?Diarrhea?denies.?Hematology:?Swelling?denies.?Clots?denies.?Varicose Veins?denies.?Bruising?denies.?Bleeding problem?denies.?Genitourinary:?Blood urine?denies.?Frequent/Painfu/urination/bladder control?denies.?Kidney stones?denies.?Infection (UTI)?denies.?Nephropathy?denies.?sex trans dis (STD)?denies.?Prostate??admits.?Musculoskeletal:?Hammertoes?denies.?Bunions?denies.?Back Pain?denies.?Muscle Cramps/ Resting?denies.?Muscle cramps / walking?denies.?Generalized aches and pains?denies.?Weakness?denies.?Integ.:?Dave?denies.?Scars?admits .?Corns/calluses?admits .?Ingrown nails?denies.?Painful nails?denies.?Open Sores?denies.?Rashes?denies.?Neurologic:?Difficulty sleeping?denies.?Brain disorder?denies.?Numbness?denies.?Balance t rouble?denies.?Confusion?denies.?Fainting/blackouts?denies.?Tingling?denies.?Chintan mors?denies.? * Medical History:? * Surgical History:?wrist surg [...] 6-7x /week. ?Marital status: . 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 * Medications:?TakingTrulicity 3 MG/0.5ML Solution Pen-injector as directed Subcutaneous Lisinopril 5 MG Tablet 1 tablet Orally Once a day metFORMIN HCl 1000 MG Tablet 1 tablet with meals Orally Twice a day hydroCHLOROthiazide 25 MG Tablet 1 tablet in the morning Orally Three times a Week Tamsulosin HCl 0.4 MG Capsule Oral Vitamin E [...] MG Tablet 1 tablet Orally Once a day Ferrous Sulfate 325 (65 Fe) MG Tablet Delayed Release 1 tablet Orally Three times a Week Fiber 625 MG Tablet 2 tablets as needed Orally Three times a day Multivitamin - Tablet 1 tablet Orally Once a day Xzhgxe-Xehyparib-LRK Complex - Tablet as directed Orally Pentoxifylline ER 400 MG Tablet Extended Release TAKE ONE TABLET BY MOUTH TWICE A DAY Oral Taking Trulicity 3 MG/0.5ML Solution Pen-injector as directed Subcutaneous Taking Lisinopril 5 MG Tablet 1 tablet Orally Once a day Taking metFORMIN HCl 1000 MG Tablet 1 tablet with meals Orally Twice a day Taking hydroCHLOROthiazide 25 MG Tablet 1 tablet in the morning Orally Three times a Week Taking Tamsulosin HCl 0.4 MG Capsule Oral Taking [...] MG Tablet 1 tablet Orally Once a day Taking Ferrous Sulfate 325 (65 Fe) MG Tablet Delayed Release 1 tablet Orally Three times a Week Taking Fiber 625 MG Tablet 2 tablets as needed Orally Three times a day Taking Multivitamin - Tablet 1 tablet Orally Once a day Taking Pgwxqp-Lgmhzoefs-LIY Complex - Tablet as directed Orally Taking Pentoxifylline ER 400 MG Tablet Extended Release TAKE ONE TABLET BY MOUTH TWICE A DAY Oral UnknownFish Oil 1000 MG Capsule 1 capsule Orally Once a day Aspirin 81 MG Tablet Chewable 1 tablet Orally Once a day Simvastatin 20 MG Tablet 1 tablet in the evening Orally Once a day glyBURIDE 1.25 MG Tablet 1 tablet with breakfast or the first main meal of the day Orally Once a day Medication List reviewed and reconciled with the patientUnknown Fish Oil 1000 MG Capsule 1 capsule Orally Once a day Unknown Aspirin 81 MG Tablet Chewable 1 tablet Orally Once a day Unknown Simvastatin 20 MG Tablet 1 tablet in the evening Orally Once a day Unknown glyBURIDE 1.25 MG Tablet 1 tablet with breakfast or the first main meal of the day Orally Once a day Medication List reviewed and reconciled with the patient * Allergies:?N.K.D.A.yes[Aller gies Verified] Objective: * Vitals:?Ht: 6ft 1 in, Wt:195 lbs, BMI:25.72, Shoe size: 10.5- 11, BS:not taken, Ht-cm: 185.42 cm, Wt-k.45 kg. * Examination: ???Ophthalmology Referral: ?DIABETES EYE EXAM?Dermatologic: ?SKIN FINDINGS:?Skin shows sign(s) of, dryness, scaling, in a stocking fashion, no fissure(s) present, B/L.?VERRUCA:?Reveals a Single , multi-loculated , mosaic-patterned, round, raised, flat-topped, petechial bleeding papule(s), with cauliflower appearance and interruption of skin lines, pain to lateral compression, and size estimated at 3mm diameter , plantar Forefoot , LEFT.?Orthopedic: ?MUSCLE STRENGTH:?5/5 all groups in a symmetrical fashion, B/L.?FOOT MORPHOLOGY:?Pes Cavus structure.?FOOTWEAR:?good condition.?Vascular: ?DP PULSES (B):?/, B/L.?PT PULSES (B):?/, B/L.?CAPILLARY FILL TIME:?immediate, all digits, B/L.?TROPHIC CONDITION-TEXTURE/ELASTICITY/TURGOR/HAIR GROWTH (B):?normal, B/L.?TEMPERTURE GRADIENT (C):?normal, warm to cool, proximal to distal, B/L, B/L.?PIGMENTATION:?normal, B/L.?EDEMA (C):?absent, B/L.?Neurological: ?SENSORY:?Pt relates, paresthesia, T1 stating due [...] historian for office visit today.?ORIENTED:?person, place, and time.?FOOT EXAM:?Footwear Evaluation? Assessment: * Assessment: 1.?Plantar wart - B07.0 (Gita persaud)???Specify :LEFT???2.?Left foot pain - M79.672???3.?Xerosis of skin - L85.3???Specify :Acute problem, Uncomplicated (3),Rx Management (4)???4.?Type 2 diabetes mellitus without complication - E11.9??? Plan: * Treatment: 2.?Xerosis of skin? Start Ammonium Lactate Cream, 12 %, 1 application, Externally, Twice a day, 30 days, 60, Refills 2.?? * Procedures:?Wart Treatment:?Procedure?Verrucae were debrided to pin-point bleeding margins with sterile 15 surgical blade, silver nitrate chemocautery applied, recomm. immune-boosting meds such as zinc, recomm. follow up with topical chemosurgical agents, Pt defers any other forms of tx (39943) , Verrucae were debrided to pin-point bleeding margins with sterile 15 surgical blade, silver nitrate chemocautery applied, recomm. immune-boosting meds such as zinc, recomm. follow up with topical chemosurgical agents, Pt defers any other forms of tx (63047).? * Procedure Codes:?29467 Wart Destruction, 1-14 * Preventive Medicine:? ??Counseling:?Discussion:?-03: [...] their pharmacy at the time of visit.? ??Screening/Special Tests:?Fall Risk?Screening:?No falls in the past year ?FALLS: Screening for Future Fall Risk?Have you had any falls with injury in the past year??No * Follow Up:?prn * Images: * Sign off status: Completed true * Provider:?Maurizio Rivas DPM Date:?2023 Generated for Lucero rodriguez/Luiza/Mic on:?08/26/2024 09:49 AM EST History and Physical Notes * HPI [...] LEFT Orthopedic FOOT MORPHOLOGY: Pes Cavus structure FOOTWEAR: good condition MUSCLE STRENGTH: 5/5 all groups in a symmetrical fashion, B/L General Examination GENERAL APPEARANCE: Reveals a pleasant, alert, well nourished, well-developed, well hydrated individual, who demonstrates proper attention to hygiene/body habitus, and is in no acute distress, Pt serves as own historian for office visit today FOOT EXAM: Lower Extremity Neurological Exa m performed:: Yes Visual exam of foot performed:: Yes Date: 02/05/2024 ORIENTED: person, place, and t john Footwear Evaluation Footwear Evaluation performe d:: Yes Ophthalmology Referral DIABETES EYE EXAM Procedure Perform ed:: Yes ?Date of Exam Performed: 11/27/2023 Findings of Diabetic Eye Exam:: no retin opathy Vascular DP PULSES (B): 3/4, B/L PT PULSES (B): 3/4, B/L CAPILLARY FILL TIME: immediate, all digi ts, B/L TEMPERTURE GRADIENT (C): normal, warm to cool, proximal to distal, B/L, B/L TROPHIC CONDITION-TEXTURE/ELASTICITY/TURGOR/HAIR GROWTH (B): normal, B/L EDEMA (C): absent, B/L PIGMENTATION: normal, B/L
--- OUTSIDE RECORDS SUMMARY | 2024-08-26 09:50 | XMS_ITS | Continuity of Care Document ---
Author Name [facility] Organization [facility] Care Team Providers Care Date Puller Name Role Phone [facility] Unavailable Unavailable Problems Combined list of problems from Department of Defense and Veterans Affairs facilities. It does not include entries that were removed or entered in error. Problem Status Onset Date Problem Type Date of Resolution Comments Source Allergic Rhinitis ([facility] 93528981) [facility] Active Condition Apr 09, 2024 Entered By: GERRI ORNELAS Comment: Repeat EGD due 12/2024 [place] Benign Prostatic Hypertrophy without Outflow Obstruction ([facility] 142656236) Active Condition [place] Chronic kidney disease stage 3 Active Condition Apr 06, 2024 Entered By: RICK BONILLA Comment: eGFR 59 in APR 12 [place] Cognitive impairment Active Condition [place] Diabetes Mellitus Type 2 ([facility] 33057801) Active Condition [place] Diabetic polyneuropathy Active Condition [facility] Erectile Dysfunction ([facility] 659808440) Active Condition [place] Exposure to potentially hazardous substance Active Condition Oct 06, 2023 Entered By: AIMEE HERRERA Comment: Connect Snomed Code to ICD 10 Code refer to note dated 04/06/2023 [facility] GERD - Gastro-Esophageal Reflux Disease ([facility] 922889090) [facility] Hammer toe Active Condition Apr 06 023 Entered By: ULICES PAZ Comment: b/l [place] History of surgery Active Condition Apr 06, 2023 Entered By: ULICES PAZ Comment: Foot surgerySep 2022 Entered By: ULICES PAZ Comment: Left knee surgerySep 2022 Entered By: ULICES PAZ Comment: Nasal surgerySep 2022 Entered By: ULICES PAZ Comment: Right inguinal hernia repairSep 2022 Entered By: ULICES PAZ Comment: Shoulder surgerySep 2022 Entered By: ULICES PAZ Comment: Tonsillectomy tonsillectomy [place] HTN - Hypertension ([facility] 85828979) Active Condition [place] Hyperlipidemia ([facility] 42320179) Active Condition [place] Iron deficiency Active Condition [facility] OA - Osteoarthritis of knee Active Condition Apr 06, 2023 Entered By: ULICES PAZ Comment: Patellofemoral arthritis of left knee [place] Screening for malignant neoplasm of colon done Active Condition Apr 06, 2024 Entered By: RICK BONILLA Comment: Lasst Screen Colonoscopy approx 2018; Neg CRC or PolyposisSep 2023 Entered By: RICK BONILLA Comment: Done [place] Tinnitus Active Condition [place] Diagnosis: ICD-10-CM Z46.0 Encounter for fit/adjst of spectacles and contact lenses Active Diagnosis [facility] Diagnosis: ICD-10-CM 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, r eye Active Diagnosis [facility] Diagnosis: ICD-10-CM E11.9 Type 2 diabetes mellitus without complications Active Diagnosis [place] Diagnosis: ICD-10-CM Z46.1 Encounter for fitting and adjustment of hearing aid Active Diagnosis [facility] Diagnosis: ICD-10-CM Z23 Encounter for immunization Active Diagnosis [place] Diagnosis: ICD-10-CM H90.3 Sensorineural hearing loss, bilateral Active Diagnosis [facility] Diagnosis: ICD-10-CM I10 Essential (primary) hypertension Active Diagnosis [place] Medications Combined list of outpatient medications from [...] ONCE DAILY ORAL ACTIVE ULICES CORNELIUS 2022 [facility] IELD CETIRIZINE HCL 10MG TAB TAKE ONE TABLET BY MOUTH ONCE DAILY ORAL ACTIVE SHAZIA LOVETT PROIVAN 2022 IELD DULAGLUTIDE 3MG/0.5ML INJ,SOLN,PE N INJECT 3MG SUBCUTAN EOUSLY ONCE A WEEK SUBCUT ANEOUS ACTIVE SHAZIA LOVETTPRORobynYOBANYBREA 2022 IELD FERROUS SO4 325MG TAB TAKE ONE TABLET BY MOUTH ONCE DAILY ORAL ACTIVE ULICES CORNELIUS 2022 [facility] FISH OIL 1000MG (500MG DHA/EPA) CAP,ORAL TAKE 1 CAPSULE BY MOUTH TWICE DAILY ORAL ACTIVE ULICES CORNELIUS 2022 IELD GLUCOSAMINE /CHONDROITI N CAP/TAB TAKE 1500/120 0MG BY MOUTH TWICE DAILY ORAL ACTIVE ULICES CORNELIUS 2022 IELD HYDROCHLORO THIAZIDE 25MG TAB TAKE [...] PRIOR TO SEXUAL ACTIVITY ORAL ACTIVE 05/19/2025 [id number] SHAZIA LOVETT PROIVAN 10/30/ 2024 18 [place] SILDENAFIL CITRATE 50MG TAB TAKE ONE TABLET BY MOUTH ONCE DAILY NEEDED TAKE 1 HOUR PRIOR TO SEXUAL ACTIVITY ORAL DISCONT INUED 04/11/2024 [id number] ULICES CORNELIUS 2022 6 [place] Immunizations Combined list of available immunizations from the Department of Defense and Veterans Affairs facilities. Immunization Series Date Given Administered By Site Reaction Lot Number CVX Code Drug Care Management Specialist Status Comments Source INFLUENZA, HIGH-DOSE, TRIVALENT, PF 2023 MIMA VERONICA LEFT DELTO ID [id number] 135 complet ed [facility] IELD ZOSTER RECOMBINANT 2022 JADAPETRGÉNESIS Luis A RIGHT DELTO ID [id number] 187 complet ed [place] ZOSTER RECOMBINANT 2022 JAIME KYLE RIGHT DELTO ID [id number] 187 complet ed [facility] INFLUENZA, HIGH-DOSE, QUADRIVALENT 2022 JAIME KYLE LEFT DELTO ID [id number] A 197 complet ed [facility] [place] [facility] COVID-19 (MODERNA), MRNA, LNP-S, BIVALENT, PF, 50 MCG/0.5 ML OR 25MCG/0.25 ML DOSE 1 2021 229 complet ed [facility] [place] COVID-19 (MODERNA), MRNA, LNP-S, PF, 100 MCG/0.5ML DOSE OR 50 MCG/0.25ML DOSE 2021 207 complet ed [facility] [place] [facility] COVID-19 (MODERNA), MRNA, LNP-S, PF, 100 MCG/0.5ML DOSE OR 50 MCG/0.25ML DOSE 3 2020 207 complet ed [facility] [place] COVID-19 (MODERNA), MRNA, LNP-S, PF, 100 MCG/0.5ML DOSE OR 50 MCG/0.25ML DOSE 2 2020 207 complet ed [facility] COVID-19 (MODERNA), MRNA, LNP-S, [...] Apr 06, 2023 01:26 PM Reporting Lab: [address] [address] [facility]: [facility] [address] [place] MICROALB UMIN CREATINI NE RATIO PANEL MICROALBUM IN [MASS/VOLU ME] IN URINE 0.9 mg/dL 04/05 Specimen Type: URINE No comment entered. Ordering Provider: SLOANE ALANIS Report Released Date/Time: Apr 06, 2023 01:26 PM Reporting Lab[facility] [address] [address] Performing Lab: [facility] [address] [place] MICROALB UMIN CREATINI NE RATIO PANEL CREATININE [MASS/VOLU ME] IN URINE 190.74 mg/dL 04/05 Specimen Type: URINE No comment entered. Ordering Provider: SLOANE ALANIS Report Released Date/Time: Apr 06, 2023 01:26 PM Reporting Lab[facility] [address] [address] Performing Lab: [address] [address] [place] URINALYS IS COLOR OF URINE Yellow 04/05 Specimen Type: URINE Comment: If Glucose = >500 and Ketones are positive, please alert the Physician. Ordering Provider: SLOANE ALANIS Report Released Date/Time: Apr 06, 2023 01:26 PM Reporting Lab: [address] [address] Performing Lab: [address] [address] [place] URINALYS IS APPEARANCE OF URINE Clear 04/05 Specimen Type: URINE Comment: If Glucose = >500 and Ketones are positive, please alert the Physician. Ordering Provider: SLOANE ALANIS Report Released Date/Time: Apr 06, 2023 01:26 PM Reporting Lab: [address] [address] Performing Lab: [address] [address] [place] URINALYS IS GLUCOSE [MASS/VOLU ME] IN URINE Normalmg /dL 04/05 Specimen Type: URINE Comment: If Glucose = >500 and Ketones are positive, please alert the Physician. Ordering Provider: SLOANE ALANIS Report Released Date/Time: Apr 06, 2023 01:26 PM Reporting Lab: [address] [address] Performing Lab: [address] [address] [place] URINALYS IS KETONES [MASS/VOLU ME] IN URINE BY TEST STRIP NEGATIVE mg/dL 04/05 Specimen Type: URINE Comment: If Glucose = >500 and Ketones are positive, please alert the Physician. Ordering Provider: SLOANE ALANIS Report Released Date/Time: Apr 06, 2023 01:26 PM Reporting Lab: [facility] [address] [address] Performing Lab: [facility] [address] [address] [place] URINALYS IS ERYTHROCYT ES [PRESENCE] IN URINE SEDIMENT BY LIGHT MICROSCOPY NEGATIVE mg/dL 04/05 Specimen Type: URINE Comment: If Glucose = >500 and Ketones are positive, please alert the Physician. Ordering Provider: SLOANE ALANIS Report Released Date/Time: Apr 06, 2023 01:26 PM Reporting Lab: [facility] [address] [address] Performing Lab: [address] [address] [place] URINALYS IS PROTEIN [MASS/VOLU ME] IN URINE BY TEST STRIP 10 mg/dL 04/05 Specimen Type: URINE Comment: If Glucose = >500 and Ketones are positive, please alert the Physician. Ordering Provider: SLOANE ALANIS Report Released Date/Time: Apr 06, 2023 01:26 PM Reporting Lab: [facility] [address] [address] Performing Lab: [address] [address] [place] URINALYS IS NITRITE [PRESENCE] IN URINE NEGATIVE mg/dL 04/05 Specimen Type: URINE Comment: If Glucose = >500 and Ketones are positive, please alert the Physician. Ordering Provider: SLOANE ALANIS Report Released Date/Time: Apr 06, 2023 01:26 PM Reporting Lab: [address] [address] Performing Lab: [address] [address] [place] URINALYS IS BILIRUBIN. TOTAL [PRESENCE] IN URINE NEGATIVE mg/dL 04/05 Specimen Type: URINE Comment: If Glucose = >500 and Ketones are positive, please alert the Physician. Ordering Provider: SLOANE ALANIS Report Released Date/Time: Apr 06, 2023 01:26 PM Reporting Lab: [address] [address] Performing Lab: [address] [address] [place] URINALYS IS SPECIFIC GRAVITY OF URINE BY REFRACTOME TRY 1.030 1.016 - 1.022 04/05 H Specimen Type: URINE Comment: If Glucose = >500 and Ketones are positive, please alert the Physician. Ordering Provider: SLOANE ALANIS Report Released Date/Time: Apr 06, 2023 01:26 PM Reporting Lab: [address] [address] Performing Lab: [place] [address] [place] URINALYS IS PH OF URINE BY TEST STRIP 5.5 5.0 - 9.0 04/05 Specimen Type: URINE Comment: If Glucose = >500 and Ketones are positive, please alert the Physician. Ordering Provider: SLOANE ALANIS Report Released Date/Time: Apr 06, 2023 01:26 PM Reporting Lab: [address] [address] Performing Lab: [address] [address] [place] URINALYS IS UROBILINOG EN [MASS/VOLU ME] IN URINE BY TEST STRIP Normalmg /dL <2.0 - 2.0 04/05 Specimen Type: URINE Comment: If Glucose = >500 and Ketones are positive, please alert the Physician. Ordering Provider: SLOANE ALANIS Report Released Date/Time: Apr 06, 2023 01:26 PM Reporting Lab: [address] [address] Performing Lab: [facility] [place] [facility] [address] [address] [place] URINALYS IS LEUKOCYTE ESTERASE [PRESENCE] IN URINE BY TEST STRIP NEGATIVE 04/05 Specimen Type: URINE Comment: If Glucose = >500 and Ketones are positive, please alert the Physician. Ordering Provider: SLOANE ALANIS Report Released Date/Time: Apr 06, 2023 01:26 PM Reporting Lab: [facility] [place] [address] [address] Performing Lab: [facility] [address] [address] [place] TSH THYROTROPI N [UNITS/VOL UME] IN SERUM OR PLASMA 2.71 u[IU]/mL 0.35 - 5.00 04/05 Specimen Type: SERUM No comment entered. Ordering Provider: SLOANE ALANIS Report Released Date/Time: Apr 06, 2023 01:26 PM Reporting Lab: [facility] [address] [address] Performing Lab: [facility] [address] [place] VITAMIN D (25-OH) 25-HYDROXY VITAMIN D3 [MASS/VOLU ME] IN SERUM OR PLASMA 31 ng/mL 20 - 50 04/05 Specimen Type: SERUM No comment entered. Ordering Provider: SLOANE ALANIS Report Released Date/Time: Apr 06, 2023 01:26 PM Reporting Lab: [facility] [place] [address] [address] Performing Lab: [facility] [address] [address] [place] FERRITIN FERRITIN [MASS/VOLU ME] IN SERUM OR PLASMA 25 ng/mL 20 - 300 04/05 Specimen Type: SERUM No comment entered. Ordering Provider: SLOANE ALANIS Report Released Date/Time: Apr 06, 2023 01:26 PM Reporting Lab: [facility] [place] [facility] [address] [address] Performing Lab: [facility] [place] [facility] [address] [address] [place] IRON & TIBC PANEL IRON BINDING CAPACITY [MASS/VOLU ME] IN SERUM OR PLASMA 350 ug/dL 204 - 475 04/05 Specimen Type: SERUM No comment entered. Ordering Provider: SLOANE ALANIS Report Released Date/Time: Apr 06, 2023 01:26 PM Reporting Lab: [facility] [place] [facility] [address] [address] Performing Lab: [facility] [address] [address] [place] IRON & TIBC PANEL IRON [MASS/VOLU ME] IN SERUM OR PLASMA 63 ug/dL 40 - 160 04/05 Specimen Type: SERUM No comment entered. Ordering Provider: SLOANE ALANIS Report Released Date/Time: Apr 06, 2023 01:26 PM Reporting Lab: [facility] [place] [address] [address] Performing Lab: [facility] [address] [address] [place] IRON & TIBC PANEL IRON/IRON BINDING CAPACITY.T OTAL [MASS RATIO] IN SERUM OR PLASMA 18.0 20.0 - 50.0 04/05 L Specimen Type: SERUM No comment entered. Ordering Provider: SLOANE ALANIS Report Released Date/Time: Apr 06, 2023 01:26 PM Reporting Lab: [facility] [place] [address] [address] Performing Lab: [facility] [place] [address] [address] [place] IRON & TIBC PANEL TRANSFERRI N [MASS/VOLU ME] IN SERUM OR PLASMA 265 mg/dL 200 - 360 04/05 Specimen Type: SERUM No comment entered. Ordering Provider: SLOANE ALANIS Report Released Date/Time: Apr 06, 2023 01:26 PM Reporting Lab: [facility] [address] [address] Performing Lab: [facility] [address] [address] [place] PSA PROSTATE SPECIFIC AG [MASS/VOLU ME] IN SERUM OR PLASMA 1.91 ng/mL 0.00 - 4.00 04/05 Specimen Type: SERUM No comment entered. Ordering Provider: SLOANE ALANIS Report Released Date/Time: Apr 06, 2023 01:26 PM Reporting Lab: [facility] [address] [address] Performing [facility]: [facility] [address] [address] [place] BASIC METABOLI C PANEL (fasting ) UREA NITROGEN [MASS/VOLU ME] IN SERUM OR PLASMA 33 mg/dL 7 - 25 04/05 H Specimen Type: SERUM No comment entered. Ordering Provider: SLOANE ALANIS Report Released Date/Time: Apr 06, 2023 01:26 PM Reporting Lab: [facility] [address] [address] Performing Lab: [facility] [address] [address] [place] BASIC METABOLI C PANEL (fasting ) GLUCOSE [MASS/VOLU ME] IN SERUM OR PLASMA 147 mg/dL 65 - 100 04/05 H Specimen Type: SERUM No comment entered. Ordering Provider: SLOANE ALANIS Report Released Date/Time: Apr 06, 2023 01:26 PM Reporting Lab: [facility] [address] Performing Lab: [facility] [address] [address] [place] BASIC METABOLI C PANEL (fasting ) SODIUM [MOLES/VOL UME] IN SERUM OR PLASMA 140 mmol/L 135 - 145 04/05 Specimen Type: SERUM No comment entered. Ordering Provider: SLOANE ALANIS Report Released Date/Time: Apr 06, 2023 01:26 PM Reporting Lab: [facility] [address] [address] Performing Lab: [address] [address] [place] BASIC METABOLI C PANEL (fasting ) POTASSIUM [MOLES/VOL UME] IN SERUM OR PLASMA 4.5 mmol/L 3.5 - 5.0 04/05 Specimen Type: SERUM No comment entered. Ordering Provider: SLOANE ALANIS Report Released Date/Time: Apr 06, 2023 01:26 PM Reporting Lab: [address] [address] Performing Lab: [address] [address] [place] BASIC METABOLI C PANEL (fasting ) CHLORIDE [MOLES/VOL UME] IN SERUM OR PLASMA 108 mmol/L 100 - 110 04/05 Specimen Type: SERUM No comment entered. Ordering Provider: SLOANE ALANIS Report Released Date/Time: Apr 06, 2023 01:26 PM Reporting Lab: [address] [address] Performing Lab: [facility] [address] [address] [place] BASIC METABOLI C PANEL (fasting ) CARBON DIOXIDE, TOTAL [MOLES/VOL UME] IN SERUM OR PLASMA 23 meq/L 20 - 30 04/05 Specimen Type: SERUM No comment entered. Ordering Provider: SLOANE ALANIS Report Released Date/Time: Apr 06, 2023 01:26 PM Reporting Lab: [address] [address] Performing Lab: [facility] [address] [address] [place] BASIC METABOLI C PANEL (fasting ) CREATININE [MASS/VOLU ME] IN SERUM OR PLASMA 1.32 mg/dL 0.50 - 1.40 04/05 Specimen Type: SERUM No comment entered. Ordering Provider: SLOANE ALANIS Report Released Date/Time: Apr 06, 2023 01:26 PM Reporting Lab: [facility] [address] [address] Performing Lab: [address] [address] [place] BASIC METABOLI C PANEL (fasting ) GLOMERULAR FILTRATION RATE/1.73 SQ M.PREDICTE D [VOLUME RATE/AREA] IN SERUM, PLASMA OR BLOOD BY CREATININE -BASED FORMULA (CKD-EPI 2020) 59 mL/min 60 04/05 L Specimen Type: SERUM No comment entered. Ordering Provider: SLOANE ALANIS Report Released Date/Time: Apr 06, 2023 01:26 PM Reporting Lab: [address] [address] Performing Lab: [address] [address] [place] LIPID PANEL FASTING CHOLESTERO L [MASS/VOLU ME] IN SERUM OR PLASMA 134 mg/dL 04/05 Specimen Type: SERUM No comment entered. Ordering Provider: SLOANE ALANIS Report Released Date/Time: Apr 06, 2023 01:26 PM Reporting Lab: [address] [address] Performing Lab: [address] [address] [place] LIPID PANEL FASTING TRIGLYCERI DE [MASS/VOLU ME] IN SERUM OR PLASMA 70 mg/dL 0 - 150 04/05 Specimen Type: SERUM No comment entered. Ordering Provider: SLOANE ALANIS Report Released Date/Time: Apr 06, 2023 01:26 PM Reporting Lab: [facility] [address] [address] Performing Lab: [facility] TRN [facility]USE[address] [address] [place] LIPID PANEL FASTING CHOLESTERO L IN LDL [MASS/VOLU ME] IN SERUM OR PLASMA BY CALCULATIO N 82 mg/dL 0 - 129 04/05 Specimen Type: SERUM No comment entered. Ordering Provider: SLOANE ALANIS Report Released Date/Time: Apr 06, 2023 01:26 PM Reporting Lab: [facility] [address] [address] Performing Lab: [facility] [address] [address] [place] LIPID PANEL FASTING CHOLESTERO L.TOTAL/CH OLESTEROL IN HDL [MASS RATIO] IN SERUM OR PLASMA 3.5 04/05 Specimen Type: SERUM No comment entered. Ordering Provider: SLOANE ALANIS Report Released Date/Time: Apr 06, 2023 01:26 PM Reporting Lab: [facility] [address] [address] Performing Lab: [facility] TRN [address] [address] [place] LIPID PANEL FASTING CHOLESTERO L IN HDL [MASS/VOLU ME] IN SERUM OR PLASMA 38 mg/dL 40 - 60 04/05 L Specimen Type: SERUM No comment entered. Ordering Provider: SLOANE ALANIS Report Released Date/Time: Apr 06, 2023 01:26 PM Reporting Lab: [facility] [address] Performing Lab: [facility]USE[address] [address] [place] LIVER FUNCTION PROTEIN [MASS/VOLU ME] IN SERUM OR PLASMA 6.4 g/dL 6.0 - 8.3 04/05 Specimen Type: SERUM No comment entered. Ordering Provider: SLOANE ALANIS Report Released Date/Time: Apr 06, 2023 01:26 PM Reporting Lab: [facility]TRN [address] [address] Performing Lab: [facility] [address] [address] [place] LIVER FUNCTION ALBUMIN [MASS/VOLU ME] IN SERUM OR PLASMA 4.0 g/dL 3.5 - 5.0 04/05 Specimen Type: SERUM No comment entered. Ordering Provider: SLOANE ALANIS Report Released Date/Time: Apr 06, 2023 01:26 PM Reporting Lab: [facility] [address] [address] Performing Lab: [address] [address] [place] LIVER FUNCTION ALKALINE PHOSPHATAS E [ENZYMATIC ACTIVITY/V OLUME] IN SERUM OR PLASMA 60 U/L 40 - 150 04/05 Specimen Type: SERUM No comment entered. Ordering Provider: SLOANE ALANIS Report Released Date/Time: Apr 06, 2023 01:26 PM Reporting Lab: [facility] [address] [address] Performing Lab: [facility] [address] [address] [place] LIVER FUNCTION ASPARTATE AMINOTRANS FERASE [ENZYMATIC ACTIVITY/V OLUME] IN SERUM OR PLASMA 23 U/L 5 - 34 04/05 Specimen Type: SERUM No comment entered. Ordering Provider: SLOANE ALANIS Report Released Date/Time: Apr 06, 2023 01:26 PM Reporting Lab: [facility] [address] [address] Performing Lab: [facility] [address] [address] [place] LIVER FUNCTION ALANINE AMINOTRANS FERASE [ENZYMATIC ACTIVITY/V OLUME] IN SERUM OR PLASMA 23 U/L 04/05 Specimen Type: SERUM No comment entered. Ordering Provider: SLOANE ALANIS Report Released Date/Time: Apr 06, 2023 01:26 PM Reporting Lab: [facility] [address] [address] Performing Lab: [facility] [address] [address] [facility] LIVER FUNCTION BILIRUBIN. TOTAL [MASS/VOLU ME] IN SERUM OR PLASMA 0.5 mg/dL 0.2 - 1.2 04/05 Specimen Type: SERUM No comment entered. Ordering Provider: SLOANE ALANIS Report Released Date/Time: Apr 06, 2023 01:26 PM Reporting Lab: [facility] [address] [address] Performing Lab: [facility] [address] [address] [facility] Vital Signs Combined list of inpatient and outpatient Vital Signs from Department of Defense and Veterans Affairs, ranging from 12 months to all on record, depending upon the facility. Vital Sign Value Date Comments Source SYSTOLIC BLOOD PRESSURE 135 04/06/2024 11:38:32 [place] DIASTOLIC BLOOD PRESSURE 80 04/06/2024 11:38:32 [place] PULSE OXIMETRY 98 04/06/2024 11:38:32 [facility] 197 04/06/2024 11:38:32 KIM LISA BMI 27 kg/m2 04/06/2024 11:38:32 KIM [facility] TEMPERATURE 97.6 04/06/2024 11:38:32 SPR[place] NGFLISA PULSE 76 04/06/2024 11:38:32 [place] GFLISA RESPIRATION 18 04/06/2024 11:38:32 SPRI NGFIELD Encounters Combined list of: 1) Encounters from [facility] facilities going backup to the last 18 months, not all [place] inpatient encounters are included; 2) Encounters from the [facility] facilities going backup to 280 months. Location Location Details Encounter Type Encounter Number Reason For Visit Attending Provider ADM Date DC Date Status Disposition Source [facility] Outpatient Encounter [id number] 04/01 [facility] Outpatient [facility]counter [id number] 04/06 [facility] IMMUNIZATI ON ADMIN EACH ADD [id number] PRO SORTO M 04/06 [facility] [place] OFF[place] O/P NEW MOD 45-59 MIN [id number] Diagnos is: ICD-10- CM I10 Essenti al (primar y) hyperte nsion PRO SORTO 04/06 [place] [facility] Encounter [id number] 04/06 [facility] En[facility] [id number] 04/07 [facility] Out[facility] Encounter [id number] 04/07 [facility] Out[facility] Encounter [id number] 04/13 [facility] Out[facility] Encounter [id number] 04/20 [facility] EYE EXAM NEW PATIENT [id number] Diagnos is: ICD-10- CM E11.9 Type 2 diabete s mellitu s without complic ations LOGAN MUNOZ 04/20 [facility] HEARING AID EXAM BOTH EARS [id number] Diagnos is: ICD-10- CM H90.3 Sensori neural hearing loss, bilater al TIMOTEOLuigi CAMPBELL E 04/21 [facility] FIT SPECTACLES MULTIFOCAL [id number] Diagnos is: ICD-10- CM Z46.0 Encount er for fit/adj st of spectac les and contact lenses THOM PARIKH 04/21 [facility] FIT SPECTACLES MULTIFOCAL [id number] Diagnos is: ICD-10- CM Z46.0 Encount er for fit/adj st of spectac les and contact lenses THOM PARIKH 04/21 [facility] CONFORMITY EVALUATION [id number] Diagnos is: ICD-10- CM Z46.1 Encount er for fitting and adjustm ent of hearing aid FARSHADLENIN NEGRON EDENILSON L 05/15 [facility] Out[facility] Encounter [id number] 06/13 [facility] REPAIR & ADJUST SPECTACLES [id number] Diagnos is: ICD-10- CM Z46.0 Encount er for fit/adj st of spectac les and contact lenses THOM PARIKH 06/15 [facility] Out[facility] Encounter [id number] 06/16 [facility] [place] OFF/OP EST NOVEMBER X REQ PHY/QHP [id number] Diagnos is: ICD-10- CM Z23 Encount er for immuniz ation JOLEEN GATES 07/06 [place] [facility] Outpatient Encounter [id number] 1.10/16 [facility] Out[facility] Encounter [id number] 1.10/18 [facility] HEARING AID FITTING/CH ECKING [id number] Diagnos is: ICD-10- CM Z46.1 Encount er for fitting and adjustm ent of hearing aid Luigi BONILLA 10/25 [facility] Out[facility] Encounter [id number] 1.11/05 [facility] Out[facility]counter [id number] [facility] Out[facility] Encounter [id number] 11/26 [facility] Out[facility] Encounter [id number] 12/30 [facility] Out[facility] Encounter [id number] 02/09 [facility] Out[facility] Encounter [id number] 02/10 [facility] Out[facility] Encounter [id number] 02/10 [facility] Out[facility] Encounter [id number] 02/10 [facility] Out[facility]counter [id number] 02/10 [facility] Out[facility] Encounter [id number] 03/22 [facility] Out[facility] Encounter [id number] 04/06 [facility] OFF[facility] O/P EST MOD 30 MIN [id number] Diagnos is: ICD-10- CM E11.9 Type 2 diabete s mellitu s without complic ations BERNARD BONILLA 04/06 [place] [facility] COMPRE OPH EXAM EST PT 1/> [id number] 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 Diagnos is: ICD-10- CM Z46.0 Encount er for fit/adj st of spectac les and contact lenses LOGAN MUNOZ 04/27 [facility] Out[facility] Encounter [id number] 05/16 [facility] Out[facility] Encounter [id number] 05/18 [facility] Social History Combined list of available smoking, tobacco, and other social history from Department of Defense and Veterans Affairs facilities. Social History Type Response Date Comment Sourc e Tobacco smoking status NHIS VA-TOBACCO NEVER USED 04/06/2024 ANNELISE Parmar History of tobacco use VA-TOBACCO NEVER USED 04/06/2023 [facility] Advance Directives List of completed, amended, or rescinded Advance Directives on record at Department of Veterans Affairs facilities. An actual copy of the Directive is not included. Date Advance Directive Provider Source 04/06/2023 ADVANCE DIRECTIVE TRACEE KYLE
== END 2024-08-26 09:54 | disposition home or self-care (01) ==
PROVIDERS: PCP Nurse Practitioner Family; Visit Provider Physician Assistant
DX: M17.12 Unilateral primary osteoarthritis, left knee (principal)
CPT/HCPCS: 99213

== ENCOUNTER → 2024-08-26 09:23 | Outpatient (BNVA) | payer MEDICARE, OTHER, SELFPAY | PROVIDERS: PCP Nurse Practitioner Family; Visit Provider Physician Assistant | DX: M17.12 Unilateral primary osteoarthritis, left knee (principal) | CPT/HCPCS: 99212 ==

== ENCOUNTER 2024-09-09 12:52 | Outpatient (AMB) | payer MEDICARE, OTHER, SELFPAY ==
--- NOTE | 2024-09-09 13:01 | A.OFFVIS_ITS ---
Vital Signs 09/09/24 13:05 Height 6 ft 1 in Weight 194 lb BMI 25.6 BP 141/90 H Blood Pressure Location Rt brachial Position Sitting Pulse 106 H Pulse Source Pulse Oximeter Pulse Oximetry (%) 97 Oxygen Delivery Method Room Air Intake Visit Reasons: Pain in Left Knee Repossession Agent Required: No Accompanied by: Self / Same As Patient Allergies No Known Allergies [No Known Allergies*] Allergy (Verified 09/09/24 13:08) HPI HPI Pain in Left Knee: Details: Patient is a pleasant 68 years male presents today with history of chronic low back pain, h/o left ACL repair, diabetes, and recent right hammertoe surgery, for initial evaluation of for left knee pain. He was referred to our office by [facility]. Patient received Durolane injection on 06/09/24 with complete pain relief for 4 weeks. He also reports history of cortisone injections. Ann dewitt also reports low back pain which is axial predominantly and does not radiate into lower extremities. Patient reports left knee pain mainly present at night and often disrupts his sleep at night. Pain is also present first thing in the morning. Reports minimal pain with climbing stairs or walking. Pain is rated at 5/10. Patient reports his back and left knee pain affect his gait as he recently had right foot surgery and currently in walking boot. Denies any fever or chills, weakness, numbness, tingling, bladder or bowel dysfunction or saddle anesthesia. Location: Left knee pain day -08/29, night and early am 5-610; back pain is minimal Duration: Chronic pain for 2 years Characteristics of symptom or complaint: Aching, throbbing, pinching, pulsing, sharp, tugging, radiating, dull Aggravating or associated factors: Sitting, walking, standing, movements Relieving factors: Diclofenac gel, Ibuprofen, ice/heat, rest, elevation Treatment: Chiropractor adjustments, gel and cortisone injection [facility] Medical History Diabetes GERD (gastroesophageal reflux disease) Barretts esophagus Patellofemoral arthritis of left knee Type 2 diabetes mellitus with diabetic polyneuropathy Subjective memory complaints Enlarged prostate Renal insufficiency Iron deficiency Hyperlipidemia HTN (hypertension) Hyperlipidemia LDL goal <100 Surgical History History of right inguinal hernia repair History of left knee surgery History of shoulder surgery History of tonsillectomy History of nasal surgery Hx of esophagogastroduodenoscopy Hx of colonoscopy History of foot surgery Family History Father Diabetes Mother Lung cancer Son No problems noted. Son No problems noted. Son No problems noted. Son No problems noted. Son No problems noted. Son No problems noted. Daughter No problems noted. Daughter No problems noted. Paternal Grandmother Diabetes Social History Household Members: Spouse Housing: House Alcohol intake: current Alcohol intake frequency: holidays/special occasions only Alcohol type: beer, wine, hard liquor and other Patient Tobacco Use Status: Never used Tobacco e-Cigarette/Vaping Use: Never Used Second Hand Smoke Exposure: No service: Yes Current occupational status: retired Cognitive needs: No Hearing needs: No Vision needs: No Review of Systems Const All systems reviewed & are unremarkable except as noted in HPI and below Physical Exam Vital Signs: Last Vital Signs Pulse 106 H 09/09/24 13:05 BP 141/90 H 09/09/24 13:05 Pulse Ox 97 09/09/24 13:05 Oxygen Delivery Method Room Air 09/09/24 13:05 BMI result Body Mass Index 25.6 General: Appears afebrile. Alert and oriented. Mood and affect appropriate. Follows and participates in conversation appropriately. Respiratory effort is unlabored. No cough. Able to transition from sit to stand unassisted. Ambulates with left normal heel strike and toe off. Right foot in walking boot. Back/Spine/Pelvis Cervical Spine: cervical ROM normal and No Cervical spine tenderness Thoracic/Lumbar Spine: thoracic and lumbar spine normal to inspection, No Thoracic/lumbar spine scar(s), thoraco-lumbar ROM normal, Lasegue's sign negative, straight leg raise negative bilaterally, pain with thoraco-lumbar ROM, No thoracic spinal tenderness and lumbar spinal tenderness at L3, at L4 and at L5 Pelvis: no buttock tenderness Sacroiliac joints: bilaterally nontender Extrem General: Yes capillary refill normal, Yes no clubbing, cyanosis or edema and Yes no calf tenderness Left lower extremity: knee Details: normal to inspection, tenderness Location: of the lateral joint line, normal ROM and crepitus; no swelling, no ecchymosis, no deformity and no unusual warmth Results Reviewed Results Reviewed: XR KNEE AP STANDING 11/06/23 CLINICAL INFORMATION: Pain COMPARISON: Left knee radiograph from 10/19/2023 TECHNIQUE: AP bilateral standing view of the knees was obtained. FINDINGS: Postsurgical changes status post left anterior cruciate ligament. Orthopedic hardware is grossly intact. No acute visible fracture or dislocation. Mild narrowing of the bilateral medial femorotibial compartments. Joint space alignment otherwise maintained. Soft tissues are unremarkable. IMPRESSION: 1. Postsurgical changes status post left anterior cruciate ligament. Orthopedic hardware is grossly intact. 2. No acute visible fracture or dislocation. 3. Mild narrowing of the bilateral medial femorotibial compartments. Assessment & Plan Assessment & Plan (1) Lumbar spondylosis: Code(s): M47.816 - Spondylosis without myelopathy or radiculopathy, lumbar region Category: Medical (2) Left knee pain: Code(s): M25.562 - Pain in left knee Category: Medical (3) History of left knee surgery: Code(s): Z98.890 - Other specified postprocedural states Category: Surgical (4) Arthritis of left knee: Code(s): M17.12 - Unilateral primary osteoarthritis, left knee Category: Medical Plan Discussed interventional treatments for axial low back and left knee pain, including diagnostic nerve blocks for potential Sprint PNS trial vs RFA procedures, therapeutic injections as well as briefly discussed SCS trial and implant. Informational pamphlets provided to patient. Patient would like to discuss treatment options with his family. Lumbar spine imaging to assess degree of degenerative changes, any subluxation, listhesis, compression fractures or pars defects. Script provided for lidocaine patches. Continue NSAIDs prn, rest, elevation, ice/heat therapy, activity modifications, and gentle stretching exercises. All questions and concerns have been answered and patient agreed with the plan. Follow up for xray results and sooner as needed. Orders: Orders XR lumbar spine 4V min Today M47.816 - Spondylosis without myelopathy or radiculopathy, lumbar region Medications: New lidocaine 5% leave on most painful area for up to 12 hrs topical 30 ea 0RF pain M17.12 - Unilateral primary osteoarthritis, left knee, M25.562 - Pain in left knee, Z98.890 - Other specified postprocedural states Coding Level of Care Code New Pt Level 4 (92398) Complex EM visit Add On G2211 Diagnoses Lumbar spondylosis M47.816 Left knee pain M25.562 History of left knee surgery Z98.890 Arthritis of left knee M17.12
[2024-09-09 13:05] VITALS: BP 141/90; PULSE 106; O2SAT 97; BMI 25.6
--- OUTSIDE RECORDS SUMMARY | 2024-09-09 13:22 | XMS_ITS | Patient Health Record ---
Author Organization [facility] René [facility] Address [address] [place] [address] Care Team Providers Care Communications Representative Name Role Phone Giovanni Choe Primary Care Provider Unav ailable Maurizio Rivas Unavailable [phone] Allergies No Known Allergies Results Component Value [...] meal s Orally Twice a day Active Uqmshd-Lgzbotxwi-SYX Complex - as directed Orally 01/25/2024 Active [...] W/U Status Risk Notes Problem Plantar wart (68060782) Plantar wart (B07.0) Active confirmed Problem Type 2 diabetes mellitus without complication (214481480) Type 2 diabetes mellitus without complication (E11.9) Active confirmed Vital Signs Height 6ft 1 in in 02/05/2024 Weight 195 lbs lbs 02/05/2024 BMI 25.72 kg/m2 02/05/2024 Procedures Procedure Date Ordered Date Performed Result Body Sit e 74017-Pvez Destruction, 1-14 02/05/2024 N/A Encounters Encounter Location Date Provider Diagnosis [facility] [address] [place] [address] 02/05/2024 Maurizio Rivas Plantar wart B07.0 ; [...] Treatment Pending Test Test Name Order Date 51156-Rcpk Destruction, -02/05/2024 Insurance Providers Payer Name Payer Address Payer Phone Subscriber Number Group Number Insured Name Patient Relationship to Insured Coverage Start Date Coverage End Date Medicare National [employer] [address] [place] [address] [id number] Michael Martinez Self - patient is the insured for Life [address] [place] [address] [id number] Michael Martinez Self - patient is the [...]
--- OUTSIDE RECORDS SUMMARY | 2024-09-09 13:22 | XMS_ITS ---
Author [facility] [place] Address [address] [place] [address] Care Team Providers Care Biofuels Plant Construction Worker Name Role Phone Giovanni Choe Primary Care Provider Unav ailable Maurizio Rivas Unavailable [phone] Allergies No Known Allergies REASON FOR VISIT [...] a day for 30 day(s) 01/25/2024 Active Lgissv-Ikhidldyo-IPF Complex - as directed Orally 01/25/2024 Active [...] W/U Status Risk Notes Problem Plantar wart (89655417) Plantar wart (B07.0) Active confirmed Problem Type 2 diabetes mellitus without complication (899406803) Type 2 diabetes mellitus without complication (E11.9) Active confirmed Vital Signs Height 6ft 1 in in 02/05/2024 Weight 195 lbs lbs 02/05/2024 BMI 25.72 kg/m2 02/05/2024 Procedures Procedure Date Ordered Date Performed Result Body Sit e 32881-Xcgj Destruction, 1-14 02/05/2024 N/A Encounters Encounter Location Date Provider Diagnosis [facility] [address] [place] [address] 02/05/2024 Maurizio Rivas Plantar wart B07.0 ; [...] days Pending Test Test Name Order Date 06027-Oneo Destruction, 1-14 02/05/2024 Next Appt Details Follow Up: prn, Reason: Procedure Notes * Category Sub-Category Detail Notes Wart Treatment Procedure Verrucae were de brided to pin-point bleeding margins with sterile 15 surgical blade, silver nitrate chemocautery applied, recomm. immune-boosting meds such as zinc, recomm. follow up with topical chemosurgical agents, Pt defers any other forms of tx (21918) , Verrucae were debrided to pin-point bleeding margins with sterile 15 surgical blade, silver nitrate chemocautery applied, recomm. immune-boosting meds such as zinc, recomm. follow up with topical chemosurgical agents, Pt defers any other forms of tx (12809) Progress Notes * Michael MARTINEZ DDOB: (68 yo M)Acc No.[id number]:02/05/2024 Progress Notes Patient:?Michael MARTINEZ D Provider:?Maurizio Rivas DPM :1955???Age:68 Y???Sex:Male Festus e:02/05/2024 Address:[address] [place] [address] Pcp:HANY Riggins Subjective: * Chief Complaints: * [...] 6-7x /week. ?Marital status: . 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 * Medications:?TakingTrulicity 3 MG/0.5ML Solution Pen-injector as [...] Tablet 1 tablet Orally Once a day Cxtaca-Mhueybybl-QGT Complex - Tablet as directed Orally Pentoxifylline [...] 1 tablet Orally Once a day Taking Xbfsfw-Fcyczafnt-JKR Complex - Tablet as directed Orally Taking [...] Pt defers any other forms of tx (69923) , Verrucae were debrided to pin-point bleeding margins with sterile 15 surgical blade, silver nitrate chemocautery applied, recomm. immune-boosting meds such as zinc, recomm. follow up with topical chemosurgical agents, Pt defers any other forms of tx (17180).? * Procedure Codes:?11219 Wart Destruction, 1-14 * Preventive Medicine:? ??Counseling:?Discussion:?-03: [...] Rivas DPM Date:?2023 Generated for Lucero rodriguez/Luiza/Mic on:?09/09/2024 01:22 PM EST History and Physical Notes * [...]
--- OUTSIDE RECORDS SUMMARY | 2024-09-09 13:22 | XMS_ITS | Patient Health Record ---
Author Organization [facility] Address [address] [place] [address] Care Team Providers Care Radiology Special Procedure Tech Name Role Phone RICK RENE Primary Care Provider Johnathan John Unavailable [phone] ALLERGIES No Known Allergies REASON FOR REFERRAL [...] or abscess without bleeding (K57.32) Active confirmed 9065459 Problem Colorectal cancer (C19) Active confirmed 855075502 Problem Encounter for screening for malignant neoplasm of colon (Z12.11) Active confirmed 081978198 Problem Iron deficiency anemia, unspecified iron deficiency anemia type (D50.9) Active confirmed 71893793 Problem Reflux esophagitis (K21.0) Active confirmed 940147245 Problem 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 474885547 Problem Gastroesophageal reflux disease with esophagitis without hemorrhage (K21.00) Active confirmed 307544834 Problem 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 Méndez esophagus (606726469) PLAN OF TREATMENT Future Test Test Name Order Date UPPER GI ENDOSCOPY 06/25/2018 COLONOSCOPY 06/25/2018 UPPER GI ENDOSCOPY 11/13/2021 Insurance Providers Payer Name Payer Address Payer Phone Subscriber Number Group Number Insured Name Patient Relationship to Insured Coverage Start Date Coverage End Date MEDICARE OF [place] [address] [place] [address] [phone] [id number] BENJAMIN KIDD Self - patient is the insured [employer] [address] [place] [address] [id number] BENJAMIN KIDD Self - patient is the insured MEDICAL (GENERAL) HISTORY Medical History History ICD Code Screening colonoscopy 009--negative except for mild sigmoid diverticulosis and internal hemorrhoids Diverticulitis on CT scan 2015--treated with inpatient and outpatient antibiotics NIDDM Hyperlipidemia Denies [place],CVA,Lung disease,renal disease HTN Iron def anemia--EGD in [...]
--- OUTSIDE RECORDS SUMMARY | 2024-09-09 13:22 | XMS_ITS | Clinical Summary ---
Author Organization [facility] Address [address] [facility] [address] [place] [address] Phone Care Team Providers Care Hi Ranger Operator Name Role Phone Giovanni Henriquez NP Primary Care Provider [phone] Allergies No known active allergies Medications atorvastatin [...] mouth 1 (one) time each day Active [place]-3 Fatty Acids (Fish Oil) 1000 MG capsule [...] age to complete this topic Insurance MEDICARE [facility] MEDICARE [facility] Care Teams Hi Ranger Operator Relationship Specialty Start Date End Date Giovanni Henriquez NP [facility] [place] [address] PCP - General Nurse Practitioner 06/21/21
--- OUTSIDE RECORDS SUMMARY | 2024-09-09 13:23 | XMS_ITS | Continuity of Care Document ---
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 It does not include entries that were removed or entered in error. Problem Status Onset Date Problem Type Date of Resolution Comments Source Allergic Rhinitis ([facility] [id number]) [facility] Active Condition Apr 09, 2024 Entered By: GERRI ORNELAS Comment: Repeat EGD due 12/2024 [place] Benign Prostatic Hypertrophy without Outflow Obstruction ([facility] [id number]) Active Condition [place] Chronic kidney disease stage 3 Active Condition Apr 06, 2024 Entered By: RICK BONILLA Comment: eGFR 59 in APR 12 [place] Cognitive impairment Active Condition [place] Diabetes Mellitus Type 2 ([facility] [id number]) Active Condition [place] Diabetic polyneuropathy Active Condition [facility] Erectile Dysfunction ([facility] [id number]) Active Condition [place] Exposure to potentially hazardous substance Active Condition Oct 06, 2023 Entered By: AIMEE HERRERA Comment: Connect Snomed Code to ICD 10 Code refer to note dated 04/06/2023 [facility] GERD - Gastro-Esophageal Reflux Disease ([facility] [id number]) [facility] Hammer toe Active Condition Apr 06 023 Entered By: ULICES PAZ Comment: b/l [place] History of surgery Active Condition Apr 06, 2023 Entered By: ULICES PAZ Comment: Foot surgerySep 2022 Entered By: ULICES PAZ Comment: Left knee surgerySep 2022 Entered By: ULICES PAZ Comment: Nasal surgerySep 2022 Entered By: ULICES PAZ Comment: Right inguinal hernia repairSep 2022 Entered By: ULICES PAZ Comment: Shoulder surgerySep 2022 Entered By: ULICES PAZ Comment: Tonsillectomy tonsillectomy [place] HTN - Hypertension ([facility] [id number]) Active Condition [place] Hyperlipidemia ([facility] [id number]) Active Condition [place] Iron deficiency Active Condition [facility] OA - Osteoarthritis of knee Active Condition Apr 06, 2023 Entered By: ULICES PAZ Comment: Patellofemoral arthritis of left knee [place] Screening for malignant neoplasm of colon done Active Condition Apr 06, 2024 Entered By: RICK BONILLA Comment: Lasst Screen Colonoscopy approx 2018; Neg CRC or PolyposisSep 2023 Entered By: RICK BONILLA Comment: Done [place] Tinnitus Active Condition [place] Diagnosis: ICD-10-CM Z46.0 Encounter for fit/adjst of spectacles and contact lenses Active Diagnosis [facility] Diagnosis: ICD-10-CM 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, r eye Active Diagnosis [facility] Diagnosis: ICD-10-CM E11.9 Type 2 diabetes mellitus without complications Active Diagnosis [place] Diagnosis: ICD-10-CM Z46.1 Encounter for fitting and adjustment of hearing aid Active Diagnosis [facility] Diagnosis: ICD-10-CM Z23 Encounter for immunization Active Diagnosis [place] Diagnosis: ICD-10-CM H90.3 Sensorineural hearing loss, bilateral Active Diagnosis [facility] Diagnosis: ICD-10-CM I10 Essential (primary) hypertension Active Diagnosis [place] Medications Combined list of outpatient medications from [...] ONCE DAILY ORAL ACTIVE ULICES CORNELIUS 2022 [facility] IELD CETIRIZINE HCL 10MG TAB TAKE [...] PRIOR TO SEXUAL ACTIVITY ORAL ACTIVE 05/19/2025 [id number] SHAZIA LOVETT PROIVAN 10/30/ 2024 18 [place] SILDENAFIL CITRATE 50MG TAB TAKE ONE TABLET BY MOUTH ONCE DAILY NEEDED TAKE 1 HOUR PRIOR TO SEXUAL ACTIVITY ORAL DISCONT INUED 04/11/2024 [id number] ULICES CORNELIUS 2022 6 [place] Immunizations Combined list of available immunizations from the Department of Defense and Veterans Affairs facilities. Immunization Series Date Given Administered By Site Reaction Lot Number CVX Code Drug Heat Regulator Status Comments Source INFLUENZA, HIGH-DOSE, TRIVALENT, PF 2023 MIMA VERONICA LEFT DELTO ID [id number] 135 complet ed [facility] IELD ZOSTER RECOMBINANT 2022 JADAPETRGÉNESIS Luis A RIGHT DELTO ID [id number] 187 complet ed [place] ZOSTER RECOMBINANT 2022 JAIME KYLE RIGHT DELTO ID [id number] 187 complet ed [facility] [place] [facility] INFLUENZA, HIGH-DOSE, QUADRIVALENT 2022 JAIME KYLE LEFT DELTO ID [id number] 197 complet ed [facility] COVID-19 (MODERNA), MRNA, LNP-S, BIVALENT, PF, 50 MCG/0.5 ML OR 25MCG/0.25 ML DOSE 1 2021 229 complet ed [facility] COVID-19 (MODERNA), MRNA, LNP-S, PF, 100 MCG/0.5ML DOSE OR 50 MCG/0.25ML DOSE 2021 207 complet ed [facility] COVID-19 (MODERNA), MRNA, LNP-S, PF, 100 MCG/0.5ML DOSE OR 50 MCG/0.25ML DOSE 3 2020 207 complet ed [facility] COVID-19 (MODERNA), MRNA, LNP-S, PF, 100 MCG/0.5ML DOSE OR 50 MCG/0.25ML DOSE 2 2020 207 complet ed [facility] COVID-19 (MODERNA), MRNA, [...] Apr 06, 2023 01:26 PM Reporting Lab: [address] [address] Performing [facility]: [facility] [address] [place] MICROALB UMIN CREATINI NE RATIO PANEL MICROALBUM IN [MASS/VOLU ME] IN URINE 0.9 mg/dL 04/05 Specimen Type: URINE No comment entered. Ordering Provider: SLOANE ALANIS Report Released Date/Time: Apr 06, 2023 01:26 PM Reporting Lab: [facility] [address] [address] Performing Lab: [facility] [address] [place] MICROALB UMIN CREATINI NE RATIO PANEL CREATININE [MASS/VOLU ME] IN URINE 190.74 mg/dL 04/05 Specimen Type: URINE No comment entered. Ordering Provider: SLOANE ALANIS Report Released Date/Time: Apr 06, 2023 01:26 PM Reporting Lab: [facility] [address] [address] Performing Lab: [address] [address] [place] URINALYS IS COLOR OF URINE Yellow 04/05 Specimen Type: URINE Comment: If Glucose = >500 and Ketones are positive, please alert the Physician. Ordering Provider: SLOANE ALANIS Report Released Date/Time: Apr 06, 2023 01:26 PM Reporting Lab: [address] [address] Performing Lab: [address] [address] [place] URINALYS IS APPEARANCE OF URINE Clear 04/05 Specimen Type: URINE Comment: If Glucose = >500 and Ketones are positive, please alert the Physician. Ordering Provider: SLOANE ALANIS Report Released Date/Time: Apr 06, 2023 01:26 PM Reporting Lab: [address] [address] Performing Lab: [address] [address] [place] URINALYS IS GLUCOSE [MASS/VOLU ME] IN URINE Normalmg /dL 04/05 Specimen Type: URINE Comment: If Glucose = >500 and Ketones are positive, please alert the Physician. Ordering Provider: SLOANE ALANIS Report Released Date/Time: Apr 06, 2023 01:26 PM Reporting Lab: [address] [address] Performing Lab: [address] [address] [place] URINALYS IS KETONES [MASS/VOLU ME] IN URINE BY TEST STRIP NEGATIVE mg/dL 04/05 Specimen Type: URINE Comment: If Glucose = >500 and Ketones are positive, please alert the Physician. Ordering Provider: SLOANE ALANIS Report Released Date/Time: Apr 06, 2023 01:26 PM Reporting Lab: [facility] [address] [facility] [address] Performing Lab: [facility] [address] [facility] [address] [place] URINALYS IS ERYTHROCYT ES [PRESENCE] IN URINE SEDIMENT BY LIGHT MICROSCOPY NEGATIVE mg/dL 04/05 Specimen Type: URINE Comment: If Glucose = >500 and Ketones are positive, please alert the Physician. Ordering Provider: SLOANE ALANIS Report Released Date/Time: Apr 06, 2023 01:26 PM Reporting Lab: [facility] [address] [facility] [address] Performing Lab: [address] [address] [place] URINALYS IS PROTEIN [MASS/VOLU ME] IN URINE BY TEST STRIP 10 mg/dL 04/05 Specimen Type: URINE Comment: If Glucose = >500 and Ketones are positive, please alert the Physician. Ordering Provider: SLOANE ALANIS Report Released Date/Time: Apr 06, 2023 01:26 PM Reporting Lab: [facility] [address] [facility] [address] Performing Lab: [address] [address] [place] URINALYS IS NITRITE [PRESENCE] IN URINE NEGATIVE mg/dL 04/05 Specimen Type: URINE Comment: If Glucose = >500 and Ketones are positive, please alert the Physician. Ordering Provider: SLOANE ALANIS Report Released Date/Time: Apr 06, 2023 01:26 PM Reporting Lab: [address] [address] Performing Lab: [address] [address] [place] URINALYS IS BILIRUBIN. TOTAL [PRESENCE] IN URINE NEGATIVE mg/dL 04/05 Specimen Type: URINE Comment: If Glucose = >500 and Ketones are positive, please alert the Physician. Ordering Provider: SLOANE ALANIS Report Released Date/Time: Apr 06, 2023 01:26 PM Reporting Lab: [address] [address] Performing Lab: [address] [address] [place] URINALYS IS SPECIFIC GRAVITY OF URINE BY REFRACTOME TRY 1.030 1.016 - 1.022 04/05 H Specimen Type: URINE Comment: If Glucose = >500 and Ketones are positive, please alert the Physician. Ordering Provider: SLOANE ALANIS Report Released Date/Time: Apr 06, 2023 01:26 PM Reporting Lab: [address] [address] Performing Lab: [place] [address] [place] URINALYS IS PH OF URINE BY TEST STRIP 5.5 5.0 - 9.0 04/05 Specimen Type: URINE Comment: If Glucose = >500 and Ketones are positive, please alert the Physician. Ordering Provider: SLOANE ALANIS Report Released Date/Time: Apr 06, 2023 01:26 PM Reporting Lab: [address] [address] Performing Lab: [address] [address] [place] URINALYS IS UROBILINOG EN [MASS/VOLU ME] IN URINE BY TEST STRIP Normalmg /dL <2.0 - 2.0 04/05 Specimen Type: URINE Comment: If Glucose = >500 and Ketones are positive, please alert the Physician. Ordering Provider: SLOANE ALANIS Report Released Date/Time: Apr 06, 2023 01:26 PM Reporting Lab: [address] [address] Performing Lab: [facility] [place] [facility] [address] [facility] [address] [place] URINALYS IS LEUKOCYTE ESTERASE [PRESENCE] IN URINE BY TEST STRIP NEGATIVE 04/05 Specimen Type: URINE Comment: If Glucose = >500 and Ketones are positive, please alert the Physician. Ordering Provider: SLOANE ALANIS Report Released Date/Time: Apr 06, 2023 01:26 PM Reporting Lab: [facility] [place] [address] [address] Performing Lab: [facility] [address] [address] [place] TSH THYROTROPI N [UNITS/VOL UME] IN SERUM OR PLASMA 2.71 u[IU]/mL 0.35 - 5.00 04/05 Specimen Type: SERUM No comment entered. Ordering Provider: SLOANE ALANIS Report Released Date/Time: Apr 06, 2023 01:26 PM Reporting Lab: [facility] [address] [address] Performing Lab: [facility] [address] [place] VITAMIN D (25-OH) 25-HYDROXY VITAMIN D3 [MASS/VOLU ME] IN SERUM OR PLASMA 31 ng/mL 20 - 50 04/05 Specimen Type: SERUM No comment entered. Ordering Provider: SLOANE ALANIS Report Released Date/Time: Apr 06, 2023 01:26 PM Reporting Lab: [facility] [place] [address] [address] Performing Lab: [facility]N [facility]ITAL[facility] [address] [address] [place] FERRITIN FERRITIN [MASS/VOLU ME] IN SERUM OR PLASMA 25 ng/mL 20 - 300 04/05 Specimen Type: SERUM No comment entered. Ordering Provider: SLOANE ALANIS Report Released Date/Time: Apr 06, 2023 01:26 PM Reporting Lab: [facility] [place] [facility] [address] [facility] [address] Performing Lab: [facility] [place] [facility] [address] [facility] [address] [place] IRON & TIBC PANEL IRON BINDING CAPACITY [MASS/VOLU ME] IN SERUM OR PLASMA 350 ug/dL 204 - 475 04/05 Specimen Type: SERUM No comment entered. Ordering Provider: SLOANE ALANIS Report Released Date/Time: Apr 06, 2023 01:26 PM Reporting Lab: [facility] [place] [facility] [address] [facility] [address] Performing Lab: [facility] [address] [address] [place] IRON & TIBC PANEL IRON [MASS/VOLU ME] IN SERUM OR PLASMA 63 ug/dL 40 - 160 04/05 Specimen Type: SERUM No comment entered. Ordering Provider: SLOANE ALANIS Report Released Date/Time: Apr 06, 2023 01:26 PM Reporting Lab: [facility] [place] [address] [address] Performing Lab: [facility] [address] [address] [place] IRON & TIBC PANEL IRON/IRON BINDING CAPACITY.T OTAL [MASS RATIO] IN SERUM OR PLASMA 18.0 20.0 - 50.0 04/05 L Specimen Type: SERUM No comment entered. Ordering Provider: SLOANE ALANIS Report Released Date/Time: Apr 06, 2023 01:26 PM Reporting Lab: [facility] [place] [address] [address] Performing Lab: [facility] [place] [address] [address] [place] IRON & TIBC PANEL TRANSFERRI N [MASS/VOLU ME] IN SERUM OR PLASMA 265 mg/dL 200 - 360 04/05 Specimen Type: SERUM No comment entered. Ordering Provider: SLOANE ALANIS Report Released Date/Time: Apr 06, 2023 01:26 PM Reporting Lab: [facility]N [facility] [address] [facility] [address] Performing Lab: [facility]ITALN [facility] [address] [facility] [address] [place] PSA PROSTATE SPECIFIC AG [MASS/VOLU ME] IN SERUM OR PLASMA 1.91 ng/mL 0.00 - 4.00 04/05 Specimen Type: SERUM No comment entered. Ordering Provider: SLOANE ALANIS Report Released Date/Time: Apr 06, 2023 01:26 PM Reporting Lab: [facility] [address] [address] Performing Lab: [facility] [address] [address] [place] BASIC METABOLI C PANEL (fasting ) UREA NITROGEN [MASS/VOLU ME] IN SERUM OR PLASMA 33 mg/dL 7 - 25 04/05 H Specimen Type: SERUM No comment entered. Ordering Provider: SLOANE ALANIS Report Released Date/Time: Apr 06, 2023 01:26 PM Reporting Lab: [facility]N [address] [address] Performing Lab: [facility]N [address] [address] [place] BASIC METABOLI C PANEL (fasting ) GLUCOSE [MASS/VOLU ME] IN SERUM OR PLASMA 147 mg/dL 65 - 100 04/05 H Specimen Type: SERUM No comment entered. Ordering Provider: SLOANE ALANIS Report Released Date/Time: Apr 06, 2023 01:26 PM Reporting Lab: [facility]ITALRR[facility]ITALTRN [facility]USE[address] [address] Performing Lab: [facility]ITALN [address] [address] [place] BASIC METABOLI C PANEL (fasting ) SODIUM [MOLES/VOL UME] IN SERUM OR PLASMA 140 mmol/L 135 - 145 04/05 Specimen Type: SERUM No comment entered. Ordering Provider: SLOANE ALANIS Report Released Date/Time: Apr 06, 2023 01:26 PM Reporting Lab: [facility] [address] [address] Performing Lab: [address] [address] [place] BASIC METABOLI C PANEL (fasting ) POTASSIUM [MOLES/VOL UME] IN SERUM OR PLASMA 4.5 mmol/L 3.5 - 5.0 04/05 Specimen Type: SERUM No comment entered. Ordering Provider: SLOANE ALANIS Report Released Date/Time: Apr 06, 2023 01:26 PM Reporting Lab: [address] [address] Performing Lab: [address] [address] [place] BASIC METABOLI C PANEL (fasting ) CHLORIDE [MOLES/VOL UME] IN SERUM OR PLASMA 108 mmol/L 100 - 110 04/05 Specimen Type: SERUM No comment entered. Ordering Provider: SLOANE ALANIS Report Released Date/Time: Apr 06, 2023 01:26 PM Reporting Lab: [address] [address] Performing Lab: [facility] [address] [address] [place] BASIC METABOLI C PANEL (fasting ) CARBON DIOXIDE, TOTAL [MOLES/VOL UME] IN SERUM OR PLASMA 23 meq/L 20 - 30 04/05 Specimen Type: SERUM No comment entered. Ordering Provider: SLOANE ALANIS Report Released Date/Time: Apr 06, 2023 01:26 PM Reporting Lab: [address] [address] Performing Lab: [facility] [address] [address] [place] BASIC METABOLI C PANEL (fasting ) CREATININE [MASS/VOLU ME] IN SERUM OR PLASMA 1.32 mg/dL 0.50 - 1.40 04/05 Specimen Type: SERUM No comment entered. Ordering Provider: SLOANE ALANIS Report Released Date/Time: Apr 06, 2023 01:26 PM Reporting Lab: [facility]N [address] [address] Performing Lab: [address] [address] [place] BASIC METABOLI C PANEL (fasting ) GLOMERULAR FILTRATION RATE/1.73 SQ M.PREDICTE D [VOLUME RATE/AREA] IN SERUM, PLASMA OR BLOOD BY CREATININE -BASED FORMULA (CKD-EPI 2020) 59 mL/min 60 04/05 L Specimen Type: SERUM No comment entered. Ordering Provider: SLOANE ALANIS Report Released Date/Time: Apr 06, 2023 01:26 PM Reporting Lab: [address] [address] Performing Lab: [address] [address] [place] LIPID PANEL FASTING CHOLESTERO L [MASS/VOLU ME] IN SERUM OR PLASMA 134 mg/dL 04/05 Specimen Type: SERUM No comment entered. Ordering Provider: SLOANE ALANIS Report Released Date/Time: Apr 06, 2023 01:26 PM Reporting Lab: [address] [address] Performing Lab: [address] [address] [place] LIPID PANEL FASTING TRIGLYCERI DE [MASS/VOLU ME] IN SERUM OR PLASMA 70 mg/dL 0 - 150 04/05 Specimen Type: SERUM No comment entered. Ordering Provider: SLOANE ALANIS Report Released Date/Time: Apr 06, 2023 01:26 PM Reporting Lab: [facility]ITALRL TRN [facility] [address] [facility] [address] Performing Lab: [facility]OSPITALRL TRN [facility]ITALUSE[address] [address] [place] LIPID PANEL FASTING CHOLESTERO L IN LDL [MASS/VOLU ME] IN SERUM OR PLASMA BY CALCULATIO N 82 mg/dL 0 - 129 04/05 Specimen Type: SERUM No comment entered. Ordering Provider: SLOANE ALANIS Report Released Date/Time: Apr 06, 2023 01:26 PM Reporting Lab: [facility]ITALRL [facility] [address] [address] Performing Lab: [facility]ITALR[facility]ITALN [address] [address] [place] LIPID PANEL FASTING CHOLESTERO L.TOTAL/CH OLESTEROL IN HDL [MASS RATIO] IN SERUM OR PLASMA 3.5 04/05 Specimen Type: SERUM No comment entered. Ordering Provider: SLOANE ALANIS Report Released Date/Time: Apr 06, 2023 01:26 PM Reporting Lab: [facility]ITAL[facility]ITALN [address] [address] Performing Lab: [facility]ITALRL TRN [address] [address] [place] LIPID PANEL FASTING CHOLESTERO L IN HDL [MASS/VOLU ME] IN SERUM OR PLASMA 38 mg/dL 40 - 60 04/05 L Specimen Type: SERUM No comment entered. Ordering Provider: SLOANE ALANIS Report Released Date/Time: Apr 06, 2023 01:26 PM Reporting Lab: [facility]ITALRRMC [facility]PITALTRN [facility]USE[address] [address] Performing Lab: [facility]PITALRL [facility]ERN [facility]ITALUSE[address] [address] [place] LIVER FUNCTION PROTEIN [MASS/VOLU ME] IN SERUM OR PLASMA 6.4 g/dL 6.0 - 8.3 04/05 Specimen Type: SERUM No comment entered. Ordering Provider: SLOANE ALANIS Report Released Date/Time: Apr 06, 2023 01:26 PM Reporting Lab: [facility]ITALRRMC [facility]PITALTRN [address] [address] Performing Lab: [facility]ITALRCO[facility]ITALN [address] [address] [place] LIVER FUNCTION ALBUMIN [MASS/VOLU ME] IN SERUM OR PLASMA 4.0 g/dL 3.5 - 5.0 04/05 Specimen Type: SERUM No comment entered. Ordering Provider: SLOANE ALANIS Report Released Date/Time: Apr 06, 2023 01:26 PM Reporting Lab: [facility]ITALR[facility]OSPITALN [address] [address] Performing Lab: [address] [address] [place]IVER FUNCTION ALKALINE PHOSPHATAS E [ENZYMATIC ACTIVITY/V OLUME] IN SERUM OR PLASMA 60 U/L 40 - 150 04/05 Specimen Type: SERUM No comment entered. Ordering Provider: SLOANE ALANIS Report Released Date/Time: Apr 06, 2023 01:26 PM Reporting Lab: [facility]ITALR[facility]ITALN [address] [address] Performing Lab: [facility]ITALR[facility]ITALN [address] [address] [place] LIVER FUNCTION ASPARTATE AMINOTRANS FERASE [ENZYMATIC ACTIVITY/V OLUME] IN SERUM OR PLASMA 23 U/L 5 - 34 04/05 Specimen Type: SERUM No comment entered. Ordering Provider: SLOANE ALANIS Report Released Date/Time: Apr 06, 2023 01:26 PM Reporting Lab: [facility]ITALRRMC [facility]ITALTRN [address] [address] Performing Lab: [facility]ITALR[facility]ITALN [address] [address] [place] LIVER FUNCTION ALANINE AMINOTRANS FERASE [ENZYMATIC ACTIVITY/V OLUME] IN SERUM OR PLASMA 23 U/L 04/05 Specimen Type: SERUM No comment entered. Ordering Provider: SLOANE ALANIS Report Released Date/Time: Apr 06, 2023 01:26 PM Reporting Lab: [facility] [address] [facility] [address] Performing Lab: [facility] [address] [facility] [address] [facility] LIVER FUNCTION BILIRUBIN. TOTAL [MASS/VOLU ME] IN SERUM OR PLASMA 0.5 mg/dL 0.2 - 1.2 04/05 Specimen Type: SERUM No comment entered. Ordering Provider: SLOANE ALANIS Report Released Date/Time: Apr 06, 2023 01:26 PM Reporting Lab: [facility] [address] [facility] [address] Performing Lab: [facility] [address] [facility] [address] [facility] Vital Signs Combined list of inpatient and outpatient Vital Signs from Department of Defense and Veterans Affairs, ranging from 12 months to all on record, depending upon the facility. Vital Sign Value Date Comments Source SYSTOLIC BLOOD PRESSURE 135 04/06/2024 11:38:32 [place] DIASTOLIC BLOOD PRESSURE 80 04/06/2024 11:38:32 [place] PULSE OXIMETRY 98 04/06/2024 11:38:32 [facility] 197 04/06/2024 11:38:32 KIM LISA BMI 27 kg/m2 04/06/2024 11:38:32 [facility] TEMPERATURE 97.6 04/06/2024 11:38:32 SPR[place] NGFLISA PULSE 76 04/06/2024 11:38:32 [place] GFLISA RESPIRATION 18 04/06/2024 11:38:32 [place] Encounters Combined list of: 1) Encounters from Department of Veterans Affairs facilities going backup to the last 18 months, not all [place] inpatient encounters are included; 2) Encounters from the Department of Defense facilities going backup to 280 months. Location Location Details Encounter Type Encounter Number Reason For Visit Attending Provider ADM Date DC Date Status Disposition Source [facility] En[facility] [id number] 04[facility]01 [facility] En[facility] [id number] 04/06 [facility] IMMUNIZATI ON ADMIN EACH ADD [id number] PRO SORTO M 04/06 [facility] [place] OFF[place] O/P NEW MOD 45-59 MIN [id number] Diagnos is: ICD-10- CM I10 Essenti al (primar y) hyperte nsion PRO SORTO 04/06 [place] [facility] Out[facility] Encounter [id number] 04/06 [facility] [id number] 04/07 [facility] [id number] 04/07 [facility] [id number] 04[facility] [facility] En[facility] [id number] 04/20 [facility] EYE EXAM NEW PATIENT [id number] Diagnos is: ICD-10- CM E11.9 Type 2 diabete s mellitu s without complic ations LOGAN MUNOZ 04/20 [facility] HEARING AID EXAM BOTH EARS [id number] Diagnos is: ICD-10- CM H90.3 Sensori neural hearing loss, bilater al TIMOTEOLuigi CAMPBELL E 04/21 [facility] FIT SPECTACLES MULTIFOCAL [id number] Diagnos is: ICD-10- CM Z46.0 Encount er for fit/adj st of spectac les and contact lenses THOM PARIKH 04/21 [facility] FIT SPECTACLES MULTIFOCAL [id number] Diagnos is: ICD-10- CM Z46.0 Encount er for fit/adj st of spectac les and contact lenses THOM PARIKH 04/21 [facility] CONFORMITY EVALUATION [id number] Diagnos is: ICD-10- CM Z46.1 Encount er for fitting and adjustm ent of hearing aid FARSHADLENIN NEGRON EDENILSON L 05/15 [facility] Out[facility] Encounter [id number] 06/13 [facility] REPAIR & ADJUST SPECTACLES [id number] Diagnos is: ICD-10- CM Z46.0 Encount er for fit/adj st of spectac les and contact lenses THOM PARIKH 06/15 [facility] Out[facility] Encounter [id number] 06/16 [facility] [place] OFF/OP EST NOVEMBER X REQ PHY/QHP [id number] Diagnos is: ICD-10- CM Z23 Encount er for immuniz ation JOLEEN GATES 07/06 [place] [facility] En[facility] [id number] 1.10/16 [facility] En[facility] [id number] 1.10/18 [facility] HEARING AID FITTING/CH ECKING [id number] Diagnos is: ICD-10- CM Z46.1 Encount er for fitting and adjustm ent of hearing aid Luigi BONILLA 10/25 [facility]counter [id number] 1.11/05 [facility] [id number] [facility] Encounter [id number] 11/26 [facility]counter [id number] 12/30 [facility] En[facility] [id number] 02/09 [facility] Encounter [id number] 02/10 [facility] Encounter [id number] 02/10 [facility] En[facility] [id number] 02/10 [facility] En[facility] [id number] 02/10 [facility] En[facility] [id number] 03/22 [facility] Out[facility] Encounter [id number] 04/06 [facility] OFFICE O/P EST MOD 30 MIN [id number] Diagnos is: ICD-10- CM E11.9 Type 2 diabete s mellitu s without complic ations BERNARD BONILLA 04/06 [place] [facility] COMPRE OPH EXAM EST PT 1/> [id number] 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 Diagnos is: ICD-10- CM Z46.0 Encount er for fit/adj st of spectac les and contact lenses LOGAN MUNOZ 04/27 [facility] En[facility] [id number] 05/16 [facility] Out[facility] Encounter [id number] 05/18 [facility] Social History Combined list of available smoking, tobacco, and other social history from Department of Defense and Veterans Affairs facilities. Social History Type Response Date Comment Sourc e Tobacco smoking status NHIS VA-TOBACCO NEVER USED 04/06/2024 ANNELISE Parmar History of tobacco use VA-TOBACCO NEVER USED 04/06/2023 [facility] Advance Directives List of completed, amended, or rescinded Advance Directives on record at Department of Veterans Affairs facilities. An actual copy of the Directive is not included. Date Advance Directive Provider Source 04/06/2023 ADVANCE DIRECTIVE TRACEE KYLE
== END 2024-09-09 13:38 | disposition home or self-care (01) ==
PROVIDERS: PCP Nurse Practitioner Family; Referring Provider Physician Assistant; Visit Provider Nurse Practitioner Family
DX: M47.816 Spondylosis without myelopathy or radiculopathy, lumbar region (principal); M25.562 Pain in left knee; M17.12 Unilateral primary osteoarthritis, left knee; Z98.890 Other specified postprocedural states
CPT/HCPCS: 99204; G2211

== ENCOUNTER 2024-09-09 13:45 | Outpatient (REF) | payer MEDICARE, OTHER, SELFPAY ==
--- NOTE | ~2024-09-09 | XR_ITS ---
EXAMINATION: X-ray lumbar spine 4 views. CLINICAL INFORMATION: Spondylosis without myelopathy or radiculopathy, lumbar region. COMPARISON: September 16, 2006. TECHNIQUE: 5 views lumbar spine. FINDINGS: Endplate sclerosis marginal osteophyte formation and decreased intervertebral disc height at L3-4 and L5-S1 levels. Grade 1 retrolisthesis L3-4. Levoconvex curvature apex at L3. No acute cortical disruption. No lytic or blastic lesions. Vascular calcifications, abdominal aorta. XR/XR lumbar spine 4V min IMPRESSION: Multilevel lumbar spondylosis more conspicuous at L3-4 resulting in grade 1 retrolisthesis and L5-S1. Levoconvex scoliosis, apex at L3. Electronically signed by: Hermilo Rush MD 09/13/2024 10:06 AM [facility]
--- OUTSIDE RECORDS SUMMARY | 2024-09-09 14:13 | XMS_ITS | Clinical Summary ---
Author Organization [facility] Address [address] [place] [address] Phone Care Team Providers Care Universal Grinder Operator Name Role Phone Giovanni Henriquez NP Primary Care Provider [phone] Allergies No known active allergies Medications atorvastatin [...] mouth 1 (one) time each day Active Arnold-3 Fatty Acids (Fish Oil) 1000 MG capsule [...] age to complete this topic Insurance MEDICARE [facility] MEDICARE [facility] Care Teams Universal Grinder Operator Relationship Specialty Start Date End Date Giovanni Henriquez NP [place] [address] PCP - General Nurse Practitioner 06/21/21
--- OUTSIDE RECORDS SUMMARY | 2024-09-09 14:13 | XMS_ITS | Continuity of Care Document ---
Author Name [facility] Organization [facility] Care Team Providers Care Pile Operator Name Role Phone [facility] Unavailable Unavailable Problems Combined list of problems from Department of Defense and Veterans Affairs facilities. It does not include entries that were removed or entered in error. Problem Status Onset Date Problem Type Date of Resolution Comments Source Allergic Rhinitis ([facility] 62216427) [facility] Méndez's esophagus Active Condition Apr 09, 2024 Entered By: GERRI ORNELAS Comment: Repeat EGD due 12/2024 [place] Benign Prostatic Hypertrophy without Outflow Obstruction ([facility] [id number]) Active Condition [place] Chronic kidney disease stage 3 Active Condition Apr 06, 2024 Entered By: RICK BONILLA Comment: eGFR 59 in APR 12 [place] Cognitive impairment Active Condition [place] Diabetes Mellitus Type 2 ([facility] [id number]) Active Condition [place] Diabetic polyneuropathy Active Condition [facility] Erectile Dysfunction ([facility] [id number]) Active Condition [place] Exposure to potentially hazardous substance Active Condition Oct 06, 2023 Entered By: AIMEE HERRERA Comment: Connect Snomed Code to ICD 10 Code refer to note dated 04/06/2023 [facility] GERD - Gastro-Esophageal Reflux Disease ([facility] [id number]) Active [facility] Hammer toe Active Condition Apr 06 023 Entered By: ULICES PAZ Comment: b/l [place] History of surgery Active Condition Apr 06, 2023 Entered By: ULICES PAZ Comment: Foot surgerySep 2022 Entered By: ULICES PAZ Comment: Left knee surgerySep 2022 Entered By: ULICES PAZ Comment: Nasal surgerySep 2022 Entered By: ULICES PAZ Comment: Right inguinal hernia repairSep 2022 Entered By: ULICES PAZ Comment: Shoulder surgerySep 2022 Entered By: ULICES PAZ Comment: Tonsillectomy tonsillectomy [place] HTN - Hypertension ([facility] [id number]) Active Condition [place] Hyperlipidemia ([facility] [id number]) Active Condition [place] Iron deficiency Active Condition [facility] OA - Osteoarthritis of knee Active Condition Apr 06, 2023 Entered By: ULICES PAZ Comment: Patellofemoral arthritis of left knee [place] Screening for malignant neoplasm of colon done Active Condition Apr 06, 2024 Entered By: RICK BONILLA Comment: Lasst Screen Colonoscopy approx 2018; Neg CRC or PolyposisSep 2023 Entered By: RICK BONILLA Comment: Done [place] Tinnitus Active Condition [place] Diagnosis: ICD-10-CM Z46.0 Encounter for fit/adjst of spectacles and contact lenses Active Diagnosis [facility] Diagnosis: ICD-10-CM 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, r eye Active Diagnosis [facility] Diagnosis: ICD-10-CM E11.9 Type 2 diabetes mellitus without complications Active Diagnosis [place] Diagnosis: ICD-10-CM Z46.1 Encounter for fitting and adjustment of hearing aid Active Diagnosis [facility] Diagnosis: ICD-10-CM Z23 Encounter for immunization Active Diagnosis [place] Diagnosis: ICD-10-CM H90.3 Sensorineural hearing loss, bilateral Active Diagnosis [facility] Diagnosis: ICD-10-CM I10 Essential (primary) hypertension Active Diagnosis [place] Medications Combined list of outpatient medications from [...] ONCE DAILY ORAL ACTIVE ULICES CORNELIUS 2022 [facility] IELD CETIRIZINE HCL 10MG TAB TAKE [...] PRIOR TO SEXUAL ACTIVITY ORAL ACTIVE 05/19/2025 [id number] SHAZIA LOVETT PROIVAN 10/30/ 2024 18 [place] SILDENAFIL CITRATE 50MG TAB TAKE ONE TABLET BY MOUTH ONCE DAILY NEEDED TAKE 1 HOUR PRIOR TO SEXUAL ACTIVITY ORAL DISCONT INUED 04/11/2024 [id number] ULICES CORNELIUS 2022 6 [place] Immunizations Combined list of available immunizations from the Department of Defense and Veterans Affairs facilities. Immunization Series Date Given Administered By Site Reaction Lot Number CVX Code Drug Chef Under Status Comments Source INFLUENZA, HIGH-DOSE, TRIVALENT, PF 2023 MIMA VERONICA LEFT DELTO ID [id number] 135 complet ed [facility] IELD ZOSTER RECOMBINANT 2022 JADAPETRGÉNESIS Luis A RIGHT DELTO ID [id number] 187 complet ed [place] ZOSTER RECOMBINANT 2022 JAIME KYLE RIGHT DELTO ID [id number] 187 [facility] INFLUENZA, HIGH-DOSE, QUADRIVALENT 2022 JAIME KYLE LEFT DELTO ID [id number] 197 complet ed [facility] COVID-19 (MODERNA), MRNA, LNP-S, BIVALENT, PF, 50 MCG/0.5 ML OR 25MCG/0.25 ML DOSE 1 2021 229 complet ed [facility] COVID-19 (MODERNA), MRNA, LNP-S, PF, 100 MCG/0.5ML DOSE OR 50 MCG/0.25ML DOSE 2021 207 complet ed [facility] COVID-19 (MODERNA), MRNA, LNP-S, PF, 100 MCG/0.5ML DOSE OR 50 MCG/0.25ML DOSE 3 2020 207 complet ed [facility] COVID-19 (MODERNA), MRNA, LNP-S, PF, 100 MCG/0.5ML DOSE OR 50 MCG/0.25ML DOSE 2 2020 207 complet ed [facility] COVID-19 (MODERNA), MRNA, [...] Apr 06, 2023 01:26 PM Reporting Lab: [address] [address] Performing Lab: [facility] [address] [place] MICROALB UMIN CREATINI NE RATIO PANEL MICROALBUM IN [MASS/VOLU ME] IN URINE 0.9 mg/dL 04/05 Specimen Type: URINE No comment entered. Ordering Provider: SLOANE ALANIS Report Released Date/Time: Apr 06, 2023 01:26 PM Reporting Lab: [facility] [address] Performing Lab: [facility] [address] [place] MICROALB UMIN CREATINI NE RATIO PANEL CREATININE [MASS/VOLU ME] IN URINE 190.74 mg/dL 04/05 Specimen Type: URINE No comment entered. Ordering Provider: SLOANE ALANIS Report Released Date/Time: Apr 06, 2023 01:26 PM Reporting Lab: [facility] [address] [address] Performing Lab: [address] [address] [place] URINALYS IS COLOR OF URINE Yellow 04/05 Specimen Type: URINE Comment: If Glucose = >500 and Ketones are positive, please alert the Physician. Ordering Provider: SLOANE ALANIS Report Released Date/Time: Apr 06, 2023 01:26 PM Reporting Lab: [address] [address] Performing Lab: [address] [address] [place] URINALYS IS APPEARANCE OF URINE Clear 04/05 Specimen Type: URINE Comment: If Glucose = >500 and Ketones are positive, please alert the Physician. Ordering Provider: SLOANE ALANIS Report Released Date/Time: Apr 06, 2023 01:26 PM Reporting Lab: [address] [address] Performing Lab: [address] [address] [place] URINALYS IS GLUCOSE [MASS/VOLU ME] IN URINE Normalmg /dL 04/05 Specimen Type: URINE Comment: If Glucose = >500 and Ketones are positive, please alert the Physician. Ordering Provider: SLOANE ALANIS Report Released Date/Time: Apr 06, 2023 01:26 PM Reporting Lab: [address] [address] Performing Lab: [address] [address] [place] URINALYS IS KETONES [MASS/VOLU ME] IN URINE BY TEST STRIP NEGATIVE mg/dL 04/05 Specimen Type: URINE Comment: If Glucose = >500 and Ketones are positive, please alert the Physician. Ordering Provider: SLOANE ALANIS Report Released Date/Time: Apr 06, 2023 01:26 PM Reporting Lab: [facility] [address] [facility] [address] Performing Lab: [facility] [address] [facility] [address] [place] URINALYS IS ERYTHROCYT ES [PRESENCE] IN URINE SEDIMENT BY LIGHT MICROSCOPY NEGATIVE mg/dL 04/05 Specimen Type: URINE Comment: If Glucose = >500 and Ketones are positive, please alert the Physician. Ordering Provider: SLOANE ALANIS Report Released Date/Time: Apr 06, 2023 01:26 PM Reporting Lab: [facility] [address] [facility] [address] Performing Lab: [address] [address] [place] URINALYS IS PROTEIN [MASS/VOLU ME] IN URINE BY TEST STRIP 10 mg/dL 04/05 Specimen Type: URINE Comment: If Glucose = >500 and Ketones are positive, please alert the Physician. Ordering Provider: SLOANE ALANIS Report Released Date/Time: Apr 06, 2023 01:26 PM Reporting Lab: [facility] [address] [facility] [address] Performing Lab: [address] [address] [place] URINALYS IS NITRITE [PRESENCE] IN URINE NEGATIVE mg/dL 04/05 Specimen Type: URINE Comment: If Glucose = >500 and Ketones are positive, please alert the Physician. Ordering Provider: SLOANE ALANIS Report Released Date/Time: Apr 06, 2023 01:26 PM Reporting Lab: [address] [address] Performing Lab: [address] [address] [place] URINALYS IS BILIRUBIN. TOTAL [PRESENCE] IN URINE NEGATIVE mg/dL 04/05 Specimen Type: URINE Comment: If Glucose = >500 and Ketones are positive, please alert the Physician. Ordering Provider: SLOANE ALANIS Report Released Date/Time: Apr 06, 2023 01:26 PM Reporting Lab: [address] [address] Performing Lab: [address] [address] [place] URINALYS IS SPECIFIC GRAVITY OF URINE BY REFRACTOME TRY 1.030 1.016 - 1.022 04/05 H Specimen Type: URINE Comment: If Glucose = >500 and Ketones are positive, please alert the Physician. Ordering Provider: SLOANE ALANIS Report Released Date/Time: Apr 06, 2023 01:26 PM Reporting Lab: [address] [address] Performing Lab: [place] [address] [place] URINALYS IS PH OF URINE BY TEST STRIP 5.5 5.0 - 9.0 04/05 Specimen Type: URINE Comment: If Glucose = >500 and Ketones are positive, please alert the Physician. Ordering Provider: SLOANE ALANIS Report Released Date/Time: Apr 06, 2023 01:26 PM Reporting Lab: [address] [address] Performing Lab: [address] [address] [place] URIN[place] IS UROBILINOG EN [MASS/VOLU ME] IN URINE BY TEST STRIP Normalmg /dL <2.0 - 2.0 04/05 Specimen Type: URINE Comment: If Glucose = >500 and Ketones are positive, please alert the Physician. Ordering Provider: SLOANE ALANIS Report Released Date/Time: Apr 06, 2023 01:26 PM Reporting Lab: [address] [address] Performing Lab: [facility] [address] [facility] [address] [employer] [employer] URINALYS IS LEUKOCYTE ESTERASE [PRESENCE] IN URINE BY TEST STRIP NEGATIVE 04/05 Specimen Type: URINE Comment: If Glucose = >500 and Ketones are positive, please alert the Physician. Ordering Provider: SLOANE ALANIS Report Released Date/Time: Apr 06, 2023 01:26 PM Reporting Lab: [address] [address] Performing Lab: [address] [address] [place] BASIC METABOLI C PANEL (fasting ) UREA NITROGEN [MASS/VOLU ME] IN SERUM OR PLASMA 33 mg/dL 7 - 25 04/05 H Specimen Type: SERUM No comment entered. Ordering Provider: SLOANE ALANIS Report Released Date/Time: Apr 06, 2023 01:26 PM Reporting Lab: [address] [address] Performing Lab: [address] [address] [place] BASIC METABOLI C PANEL (fasting ) GLUCOSE [MASS/VOLU ME] IN SERUM OR PLASMA 147 mg/dL 65 - 100 04/05 H Specimen Type: SERUM No comment entered. Ordering Provider: SLOANE ALANIS Report Released Date/Time: Apr 06, 2023 01:26 PM Reporting Lab: [address] [address] Performing Lab: [address] [address] [place] BASIC METABOLI C PANEL (fasting ) SODIUM [MOLES/VOL UME] IN SERUM OR PLASMA 140 mmol/L 135 - 145 04/05 Specimen Type: SERUM No comment entered. Ordering Provider: SLOANE ALANIS Report Released Date/Time: Apr 06, 2023 01:26 PM Reporting Lab: [facility] [place] [facility] [address] [facility] [address] Performing Lab: [facility] [address] [facility] [address] [place] BASIC METABOLI C PANEL (fasting ) POTASSIUM [MOLES/VOL UME] IN SERUM OR PLASMA 4.5 mmol/L 3.5 - 5.0 04/05 Specimen Type: SERUM No comment entered. Ordering Provider: SLOANE ALANIS Report Released Date/Time: Apr 06, 2023 01:26 PM Reporting Lab: [facility] [address] [facility] [address] Performing Lab: [facility] [address] [place] BASIC METABOLI C PANEL (fasting ) CHLORIDE [MOLES/VOL UME] IN SERUM OR PLASMA 108 mmol/L 100 - 110 04/05 Specimen Type: SERUM No comment entered. Ordering Provider: SLOANE ALANIS Report Released Date/Time: Apr 06, 2023 01:26 PM Reporting Lab: [facility]ITAL[facility] [address] [facility] [address] Performing Lab: [facility]ITAL[facility]ETS [address] [address] [place] BASIC METABOLI C PANEL (fasting ) CARBON DIOXIDE, TOTAL [MOLES/VOL UME] IN SERUM OR PLASMA 23 meq/L 20 - 30 04/05 Specimen Type: SERUM No comment entered. Ordering Provider: SLOANE ALANIS Report Released Date/Time: Apr 06, 2023 01:26 PM Reporting Lab: [facility] [address] [facility] [address] Performing Lab: [facility] [address] [address] [place] BASIC METABOLI C PANEL (fasting ) CREATININE [MASS/VOLU ME] IN SERUM OR PLASMA 1.32 mg/dL 0.50 - 1.40 04/05 Specimen Type: SERUM No comment entered. Ordering Provider: SLOANE ALANIS Report Released Date/Time: Apr 06, 2023 01:26 PM Reporting Lab: [facility] [place] [facility] [address] [facility] [address] Performing Lab: [facility] [address] [address] [place] BASIC METABOLI C PANEL (fasting ) GLOMERULAR FILTRATION RATE/1.73 SQ M.PREDICTE D [VOLUME RATE/AREA] IN SERUM, PLASMA OR BLOOD BY CREATININE -BASED FORMULA (CKD-EPI 2020) 59 mL/min 60 04/05 L Specimen Type: SERUM No comment entered. Ordering Provider: SLOANE ALANIS Report Released Date/Time: Apr 06, 2023 01:26 PM Reporting Lab: [facility] [address] Performing Lab: [facility] [address] [place] FERRITIN FERRITIN [MASS/VOLU ME] IN SERUM OR PLASMA 25 ng/mL 20 - 300 04/05 Specimen Type: SERUM No comment entered. Ordering Provider: SLOANE ALANIS Report Released Date/Time: Apr 06, 2023 01:26 PM Reporting Lab: [facility] [address] Performing Lab: [facility]ITALRENCOM[facility] HOSPITALN [facility]PITALUSETS [address] [address] [place] IRON & TIBC PANEL IRON BINDING CAPACITY [MASS/VOLU ME] IN SERUM OR PLASMA 350 ug/dL 204 - 475 04/05 Specimen Type: SERUM No comment entered. Ordering Provider: SLOANE ALANIS Report Released Date/Time: Apr 06, 2023 01:26 PM Reporting Lab: [facility]ITALRENCOM[facility] HOSPITALN [facility] [address] Performing Lab: [facility]ITALRENCOM[facility] HOSPITALN [facility]ITAL[facility] [address] [place] IRON & TIBC PANEL IRON [MASS/VOLU ME] IN SERUM OR PLASMA 63 ug/dL 40 - 160 04/05 Specimen Type: SERUM No comment entered. Ordering Provider: SLOANE ALANIS Report Released Date/Time: Apr 06, 2023 01:26 PM Reporting Lab: [facility] [address] Performing Lab: [facility]ITALUSETS [address] [address] [place] IRON & TIBC PANEL IRON/IRON BINDING CAPACITY.T OTAL [MASS RATIO] IN SERUM OR PLASMA 18.0 20.0 - 50.0 04/05 L Specimen Type: SERUM No comment entered. Ordering Provider: SLOANE ALANIS Report Released Date/Time: Apr 06, 2023 01:26 PM Reporting Lab: [facility] [address] Performing Lab: [facility] [address] [place] IRON & TIBC PANEL TRANSFERRI N [MASS/VOLU ME] IN SERUM OR PLASMA 265 mg/dL 200 - 360 04/05 Specimen Type: SERUM No comment entered. Ordering Provider: SLOANE ALANIS Report Released Date/Time: Apr 06, 2023 01:26 PM Reporting Lab: [facility] [address] Performing Lab: [facility] [address] [place] LIPID PANEL FASTING CHOLESTERO L [MASS/VOLU ME] IN SERUM OR PLASMA 134 mg/dL 04/05 Specimen Type: SERUM No comment entered. Ordering Provider: SLOANE ALANIS Report Released Date/Time: Apr 06, 2023 01:26 PM Reporting Lab: [facility] [address] Performing Lab: [facility] [address] [facility] [address] [place] LIPID PANEL FASTING TRIGLYCERI DE [MASS/VOLU ME] IN SERUM OR PLASMA 70 mg/dL 0 - 150 04/05 Specimen Type: SERUM No comment entered. Ordering Provider: SLOANE ALANIS Report Released Date/Time: Apr 06, 2023 01:26 PM Reporting Lab: [address] [address] Performing Lab: [address] [address] [place] LIPID PANEL FASTING CHOLESTERO L IN LDL [MASS/VOLU ME] IN SERUM OR PLASMA BY CALCULASTEPH N 82 mg/dL 0 - 129 04/05 Specimen Type: SERUM No comment entered. Ordering Provider: SLOANE ALANIS Report Released Date/Time: Apr 06, 2023 01:26 PM Reporting Lab: [address] [address] Performing Lab: [address] [address] [place] LIPID PANEL FASTING CHOLESTERO L.TOTAL/CH OLESTEROL IN HDL [MASS RATIO] IN SERUM OR PLASMA 3.5 04/05 Specimen Type: SERUM No comment entered. Ordering Provider: SLOANE ALANIS Report Released Date/Time: Apr 06, 2023 01:26 PM Reporting Lab: [address] [address] Performing Lab: [address] [address] [place] LIPID PANEL FASTING CHOLESTERO L IN HDL [MASS/VOLU ME] IN SERUM OR PLASMA 38 mg/dL 40 - 60 04/05 L Specimen Type: SERUM No comment entered. Ordering Provider: SLOANE ALANIS Report Released Date/Time: Apr 06, 2023 01:26 PM Reporting Lab: [facility] [place] [facility] [address] [facility] [address] Performing Lab: [facility] [address] [facility] [address] [facility] LIVER FUNCTION PROTEIN [MASS/VOLU ME] IN SERUM OR PLASMA 6.4 g/dL 6.0 - 8.3 04/05 Specimen Type: SERUM No comment entered. Ordering Provider: SLOANE ALANIS Report Released Date/Time: Apr 06, 2023 01:26 PM Reporting Lab: [facility] [address] [facility] [address] Performing Lab: [facility]ITAL[facility] [address] [facility] LIVER FUNCTION ALBUMIN [MASS/VOLU ME] IN SERUM OR PLASMA 4.0 g/dL 3.5 - 5.0 04/05 Specimen Type: SERUM No comment entered. Ordering Provider: SLOANE ALANIS Report Released Date/Time: Apr 06, 2023 01:26 PM Reporting Lab: [facility]ITALUS[facility] [address] [address] Performing Lab: [place] [facility]ITAL[facility] [address] [address] [facility] [place] LIVER FUNCTION ALKALINE PHOSPHATAS E [ENZYMATIC ACTIVITY/V OLUME] IN SERUM OR PLASMA 60 U/L 40 - 150 04/05 Specimen Type: SERUM No comment entered. Ordering Provider: SLOANE ALANIS Report Released Date/Time: Apr 06, 2023 01:26 PM Reporting Lab: [facility]RL [facility]ITAL[facility] [address] [address] Performing Lab: [facility]RL TRN [facility]ITALUSETS [address] [address] [facility] [place] LIVER FUNCTION ASPARTATE AMINOTRANS FERASE [ENZYMATIC ACTIVITY/V OLUME] IN SERUM OR PLASMA 23 U/L 5 - 34 04/05 Specimen Type: SERUM No comment entered. Ordering Provider: NADSLOANE VILLEGAS Report Released Date/Time: Apr 06, 2023 01:26 PM Reporting Lab: [facility]ITALRENCOM[facility] HOSPITALN [address] [address] Performing Lab: [facility]ITALRENCOM[facility] HOSPITALN [address] [address] [place] LIVER FUNCTION ALANINE AMINOTRANS FERASE [ENZYMATIC ACTIVITY/V OLUME] IN SERUM OR PLASMA 23 U/L 04/05 Specimen Type: SERUM No comment entered. Ordering Provider: SLOANE ALANIS Report Released Date/Time: Apr 06, 2023 01:26 PM Reporting Lab: [address] [address] Performing Lab: [facility] [address] [address] [place] LIVER FUNCTION BILIRUBIN. TOTAL [MASS/VOLU ME] IN SERUM OR PLASMA 0.5 mg/dL 0.2 - 1.2 04/05 Specimen Type: SERUM No comment entered. Ordering Provider: SLOANE ALANIS Report Released Date/Time: Apr 06, 2023 01:26 PM Reporting Lab: [facility] [address] [address] Performing Lab: [facility] [address] [address] [place] PSA PROSTATE SPECIFIC AG [MASS/VOLU ME] IN SERUM OR PLASMA 1.91 ng/mL 0.00 - 4.00 04/05 Specimen Type: SERUM No comment entered. Ordering Provider: SLOANE ALANIS Report Released Date/Time: Apr 06, 2023 01:26 PM Reporting Lab: [facility] HOSPITALN [address] [address] Performing Lab: [facility] [address] [address] [place] TSH THYROTROPI N [UNITS/VOL UME] IN SERUM OR PLASMA 2.71 u[IU]/mL 0.35 - 5.00 04/05 Specimen Type: SERUM No comment entered. Ordering Provider: SLOANE ALANIS Report Released Date/Time: Apr 06, 2023 01:26 PM Reporting Lab: [facility] [address] [facility] [address] Performing Lab: [facility] [address] [facility] [address] [facility] VITAMIN D (25-OH) 25-HYDROXY VITAMIN D3 [MASS/VOLU ME] IN SERUM OR PLASMA 31 ng/mL 20 - 50 04/05 Specimen Type: SERUM No comment entered. Ordering Provider: SLOANE ALANIS Report Released Date/Time: Apr 06, 2023 01:26 PM Reporting Lab: [facility] [address] [facility] [address] Performing Lab: [facility] [address] [facility] [address] [facility] Vital Signs Combined list of inpatient and outpatient Vital Signs from Department of Defense and Veterans Affairs, ranging from 12 months to all on record, depending upon the facility. Vital Sign Value Date Comments Source SYSTOLIC BLOOD PRESSURE 135 04/06/2024 11:38:32 [place] DIASTOLIC BLOOD PRESSURE 80 04/06/2024 11:38:32 [place] PULSE OXIMETRY 98 04/06/2024 11:38:32 [facility] 197 04/06/2024 11:38:32 KIM LISA BMI 27 kg/m2 04/06/2024 11:38:32 [facility] TEMPERATURE 97.6 04/06/2024 11:38:32 [place] PULSE 76 04/06/2024 11:38:32 [place] GFL[place] RESPIRATION 18 04/06/2024 11:38:32 [place] Encounters Combined list of: 1) Encounters from Department of Veterans Affairs facilities going backup to the last 18 months, not all [place] inpatient encounters are included; 2) Encounters from the Department of Defense facilities going backup to 280 months. Location Location Details Encounter Type Encounter Number Reason For Visit Attending Provider ADM Date DC Date Status Disposition Source [facility] Outpatient Encounter [id number] 04/01 [facility] Outpatient [facility]counter [id number] 04/06 [facility] IMMUNIZATI ON ADMIN EACH ADD [id number] PRO SORTO M 04/06 [facility] [place] [facility] O/P NEW MOD 45-59 MIN [id number] Diagnos is: ICD-10- CM I10 Essenti al (primar y) hyperte nsion PRO SORTO 04/06 [place] [facility] Out[facility] Encounter [id number] 04/06 [facility] En[facility] [id number] 04/07 [facility] Out[facility] Encounter [id number] 04/07 [facility] Out[facility] Encounter [id number] 04/13 [facility] Outpatient Encounter [id number] 04/20 [facility] EYE EXAM NEW PATIENT [id number] Diagnos is: ICD-10- CM E11.9 Type 2 diabete s mellitu s without complic ations LOGAN MUNOZ 04/20 [facility] HEARING AID EXAM BOTH EARS [id number] Diagnos is: ICD-10- CM H90.3 Sensori neural hearing loss, bilater al TIMOTEOLuigi CAMPBELL E 04/21 [facility] FIT SPECTACLES MULTIFOCAL [id number] Diagnos is: ICD-10- CM Z46.0 Encount er for fit/adj st of spectac les and contact lenses THOM PARIKH 04/21 [facility] FIT SPECTACLES MULTIFOCAL [id number] Diagnos is: ICD-10- CM Z46.0 Encount er for fit/adj st of spectac les and contact lenses THOM PARIKH 04/21 [facility] CONFORMITY EVALUATION [id number] Diagnos is: ICD-10- CM Z46.1 Encount er for fitting and adjustm ent of hearing aid FARSHADLENIN NEGRON EDENILSON L 05/15 [facility] Outpatient Encounter [id number] 06/13 [facility] REPAIR & ADJUST SPECTACLES [id number] Diagnos is: ICD-10- CM Z46.0 Encount er for fit/adj st of spectac les and contact lenses THOM PARIKH 06/15 [facility] Out[facility] Encounter [id number] 06/16 [facility] [place] OFF/OP EST NOVEMBER X REQ PHY/QHP [id number] Diagnos is: ICD-10- CM Z23 Encount er for immuniz ation JOLEEN GATES 07/06 [place] [facility] Outpatient Encounter [id number] 1.10/16 [facility] Out[facility] Encounter [id number] 1.10/18 [facility] HEARING AID FITTING/CH ECKING [id number] Diagnos is: ICD-10- CM Z46.1 Encount er for fitting and adjustm ent of hearing aid Luigi BONILLA 10/25 [facility] Out[facility] Encounter [id number] 1.11/05 [facility] Out[facility]counter [id number] [facility] Out[facility] Encounter [id number] 11/26 [facility] Out[facility] Encounter [id number] 12/30 [facility] Out[facility] Encounter [id number] 02/09 [facility]counter [id number] 02/10 [facility] Out[facility]counter [id number] 02/10 [facility] Out[facility] Encounter [id number] 02/10 [facility] Out[facility]counter [id number] 02/10 [facility] Out[facility] Encounter [id number] 03/22 [facility] Outpatient Encounter [id number] 04/06 [facility] O/P EST MOD 30 MIN [id number] Diagnos is: ICD-10- CM E11.9 Type 2 diabete s mellitu s without complic ations BERNARD BONILLA 04/06 [place] [facility] COMPRE OPH EXAM EST PT 1/> [id number] 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 Diagnos is: ICD-10- CM Z46.0 Encount er for fit/adj st of spectac les and contact lenses LOGAN MUNOZ 04/27 [facility] Out[facility] Encounter [id number] 05/16 [facility] Out[facility] Encounter [id number] 05/18 [facility] Social History Combined list of available smoking, tobacco, and other social history from Department of Defense and Veterans Affairs facilities. Social History Type Response Date Comment Sourc e Tobacco smoking status NHIS VA-TOBACCO NEVER USED 04/06/2024 ANNELISE Parmar History of tobacco use VA-TOBACCO NEVER USED 04/06/2023 [facility] Advance Directives List of completed, amended, or rescinded Advance Directives on record at Department of Veterans Affairs facilities. An actual copy of the Directive is not included. Date Advance Directive Provider Source 04/06/2023 ADVANCE DIRECTIVE TRACEE KYLE
== END 2024-09-09 13:46 | disposition home or self-care (01) ==
LOC: HO.XRAY 13:45
PROVIDERS: PCP Nurse Practitioner Family; Visit Provider Nurse Practitioner Family
DX: M47.816 Spondylosis without myelopathy or radiculopathy, lumbar region (principal)
CPT/HCPCS: 72110

== ENCOUNTER → 2024-09-09 13:48 | Outpatient (BNV) | payer MEDICARE, OTHER, SELFPAY | PROVIDERS: PCP Nurse Practitioner Family; Visit Provider Radiology Diagnostic Radiology | DX: M47.816 Spondylosis without myelopathy or radiculopathy, lumbar region (principal) | CPT/HCPCS: 72110 ==

== ENCOUNTER 2024-10-24 13:44 | Outpatient (AMB) | payer MEDICARE, OTHER, SELFPAY ==
--- NOTE | 2024-10-24 13:44 | MHC.OFFVIS ---
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 He was prescribed tamsulosin, vitamin-E and pentoxifylline. Michael states he has noticed about 75-80% improvement in the curvature. on generic viagra with suboptimal erections Will start daily cialis 5 mg. Cont PSA screening. FU Oct, PSA prior Results: Labs- 04/16/24--PSA-2.14 ng/mL 06/26/24--6 month fu. LV 12/31/23--followed for BPH and Peyronie's. He was prescribed tamsulosin, vitamin-E and pentoxifylline. Michael states he has noticed about 50% improvement in the curvature. I have discussed options to continue with the medication or see Dr. Perkins for an injection into the plaque itself. Michael wants to see how things go over the next few months. In terms of his voiding, he did not refill the tamsulosin because he called the office and did not get a call back so he did not think the tamsulosin was necessary however he feels that he is emptying adequately at this time in that the tamsulosin did not make a difference. PVR today is minimal. I reviewed testing today including renal ultrasound done 01/07/2024 which is within normal limits and PSA 04/16/24-2.14. renal ultrasound 11/27/2023-within normal limits 04/16/24--PSA-2.14 ng/mL Review of chart: 12/31/23--Michael is a 68-year-old male with complaints of slowing of urinary stream and nocturia. He also complains that he notices a bending of the penis with erections. I will prescribe tamsulosin and have discussed trial of vitamin-E and pentoxifylline. 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 Son No problems noted. Son No problems noted. Son No problems noted. Son No problems noted. Son No problems noted. Daughter No problems noted. Daughter No problems noted. Paternal Grandmother Diabetes Social History Household Members: Spouse Housing: House Alcohol intake: current Alcohol intake frequency: holidays/special occasions only Alcohol type: beer, wine, hard liquor and other Patient Tobacco Use Status: Never used Tobacco e-Cigarette/Vaping Use: Never Used Second Hand Smoke Exposure: No service: Yes Current occupational status: retired Cognitive needs: No Hearing needs: No Vision needs: Yes Review of Systems Const All systems reviewed & are unremarkable except as noted in HPI and below Reports no additional complaints Eyes Reports no additional complaints ENT Reports no additional complaints Card Reports no additional complaints Resp Reports no additional complaints GI Reports no additional complaints Reports as per HPI Musc Reports no additional complaints Skin/Breast Reports system reviewed and no additional complaints, except as documented Neuro Reports no additional complaints Psych Reports no additional complaints Endo Reports no additional complaints Randy/Lymph Reports no additional complaints Aller/Immun Reports no additional complaints Telehealth Telehealth Telehealth Platform: [facility] Location of provider rendering services: practice address Location of patient: address on file Patient Identification confirmed using: Name, : Yes Telehealth method: video Patient verbally consented to treatment: Yes Patient verbally consented to billing insurance company: Yes Patient informed of any privacy concerns related to visit: Yes Results Reviewed Results Reviewed: Date of Service: 11/27/23 EXAMINATION: US RETROPERITONEAL COMPLETE (RENAL) CLINICAL INFORMATION: Other difficulties with micturition. COMPARISON: Renal ultrasound with bladder 06/16/2018. CT abdomen and pelvis 10/03/2015. TECHNIQUE: Real-time imaging of the kidneys and bladder. FINDINGS: RIGHT KIDNEY: 11.2 x 5.0 x 4.8 cm (SAG x AP x TRV). The kidney is normal in size, contour, and echogenicity. Renal cortical thickness is normal. 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 LEFT KIDNEY: 10.4 x 5.5 x 4.9 cm (SAG x AP x TRV). The kidney is normal in size, contour, and echogenicity. Renal cortical thickness is normal. No calculi or focal parenchymal lesions. No hydronephrosis. BLADDER: Well distended and normal. Bilateral ureteral jets are demonstrated. Prevoid bladder volume is 127 mL. Postvoid bladder volume is 43.8 mL. Prostate volume 19.7 mL. IMPRESSION: 1. No renal calculi or hydronephrosis of either kidney. 2. Prominent post void bladder residual of 45 mL. Assessment & Plan Assessment & Plan (1) Screening PSA (prostate specific antigen): Code(s): Z12.5 - Encounter for screening for malignant neoplasm of prostate Category: Medical (2) BPH (benign prostatic hyperplasia): Code(s): N40.0 - Benign prostatic hyperplasia without lower urinary tract symptoms Category: Medical (3) Peyronie's disease: Code(s): N48.6 - Induration penis plastica Category: Medical Plan Cont medicine therapy for peyronies, vitamin-E daily, pentoxifylline bid. Start daily Cialis. PSA screening Orders: Orders PSA,Total (Free>4and<10) 5 Months Z12.5 - Encounter for screening for malignant neoplasm of prostate Medications: New tadalafil (Cialis) 5 mg PO DAILY 30 tabs 5RF Patient Instructions: The patient had an opportunity to ask questions regarding treatment plan. The patient expressed understanding and agreement with the above treatment plan. The patient is aware they should contact our office by phone for worsening of their current condition or the appearance of new symptoms. Compliance is encouraged with any medications and followup testing that is ordered. It is a privilege to be allowed the opportunity to participate in the urologic care of your patient. If you have any questions or concerns regarding treatment for the above conditions please do not hesitate to contact me. The office telephone contact is [phone]. This note is constructed in part using voice recognition software. While every effort has been made to ensure accuracy research program internship errors may have been included. Yours sincerely, Christy Morris MD Coding Level of Care Code Tele Est Pt Level 4 (59948) Diagnoses Screening PSA (prostate specific antigen) Z12.5 BPH (benign prostatic hyperplasia) N40.0 Peyronie's disease N48.6
--- OUTSIDE RECORDS SUMMARY | 2024-10-24 16:19 | XMS_ITS | Continuity of Care Document ---
Author Name [facility] Organization [facility] Care Team Providers Care Day Care Provider Name Role Phone [facility] Unavailable Unavailable Problems Combined list of problems from Department of Defense and Veterans Affairs facilities. It does not include entries that were removed or entered in error. Problem Status Onset Date Problem Type Date of Resolution Comments Source Allergic Rhinitis ([facility] [id number]) [facility] Active Condition Apr 09, 2024 Entered By: GERRI ORNELAS Comment: Repeat EGD due 12/2024 [place] Benign Prostatic Hypertrophy without Outflow Obstruction ([facility] [id number]) Active Condition [place] Chronic kidney disease stage 3 Active Condition Apr 06, 2024 Entered By: RICK BONILLA Comment: eGFR 59 in APR 12 [place] Cognitive impairment Active Condition [place] Diabetes Mellitus Type 2 ([facility] [id number]) Active Condition [place] Diabetic polyneuropathy Active Condition [facility] Erectile Dysfunction ([facility] [id number]) Active Condition [place] Exposure to potentially hazardous substance Active Condition Oct 06, 2023 Entered By: AIMEE HERRERA Comment: Connect Snomed Code to ICD 10 Code refer to note dated 04/06/2023 [facility] GERD - Gastro-Esophageal Reflux Disease ([facility] [id number]) Active Condition [facility] LD Hammer toe Active Condition Apr 06 023 Entered By: ULICES PAZ Comment: b/l [place] History of surgery Active Condition Apr 06, 2023 Entered By: ULICES PAZ Comment: Foot surgerySep 2022 Entered By: ULICES PAZ Comment: Left knee surgerySep 2022 Entered By: ULICES PAZ Comment: Nasal surgerySep 2022 Entered By: ULICES PAZ Comment: Right inguinal hernia repairSep 2022 Entered By: ULICES PAZ Comment: Shoulder surgerySep 2022 Entered By: ULICES PAZ Comment: Tonsillectomy tonsillectomy [place] HTN - Hypertension ([facility] [id number]) Active Condition [place] Hyperlipidemia ([facility] 89392845) Active Condition [facility] Iron deficiency Active Condition [facility] OA - Osteoarthritis of knee Active Condition Apr 06, 2023 Entered By: ULICES PAZ Comment: Patellofemoral arthritis of left knee [place] Screening for malignant neoplasm of colon done Active Condition Apr 06, 2024 Entered By: RICK BONILLA Comment: Lasst Screen Colonoscopy approx 2018; Neg CRC or PolyposisSep 2023 Entered By: RICK BONILLA Comment: Done [place] Tinnitus Active Condition [place] Diagnosis: ICD-10-CM Z46.0 Encounter for fit/adjst of spectacles and contact lenses Active Diagnosis [facility] [place] [facility] Diagnosis: ICD-10-CM 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 IELD CETIRIZINE HCL 10MG TAB TAKE ONE TABLET BY MOUTH ONCE DAILY ORAL ACTIVE ULICES CORNELIUS [address] [facility] IELD DULAGLUTIDE 3MG/0.5ML INJ,SOLN,PE N INJECT 3MG SUBCUTAN EOUSLY ONCE A WEEK SUBCUT ANEOUS ACTIVE ULICES CORNELIUS 2022 IELD FERROUS SO4 325MG TAB TAKE [...] DAILY ORAL ACTIVE ULICES CORNELIUS 2022 IELD LISINOPRIL 10MG TAB TAKE ONE TABLET BY MOUTH ONCE DAILY ORAL ACTIVE ULICES CORNELIUS 2022 IELD METFORMIN HCL 1000MG TAB TAKE ONE TABLET BY MOUTH TWICE DAILY ORAL ACTIVE ULICES CORNELIUS 2022 IELD MULTIVITAMI NS W/MINERALS TAB TAKE ONE TABLET BY MOUTH ONCE DAILY ORAL ACTIVE ULICES CORNELIUS 2022 IELD OMEPRAZOLE 20MG CAP,EC TAKE 1 CAPSULE BY MOUTH EVERY MORNING 30 MINUTES BEFORE BREAKFAS T ORAL ACTIVE ULICES CORNELIUS 2022 IELD SILDENAFIL CITRATE 50MG TAB TAKE ONE TABLET BY MOUTH ONCE DAILY NEEDED TAKE 1 HOUR PRIOR TO SEXUAL ACTIVITY ORAL SUSPEND ED 05/19/2025 [id number] ULICES CORNELIUS 2023 IELD SILDENAFIL CITRATE 50MG TAB TAKE ONE TABLET BY MOUTH ONCE DAILY NEEDED TAKE 1 HOUR PRIOR TO SEXUAL ACTIVITY ORAL DISCONT INUED 04/11/2024 [id number] ULICES CORNELIUS 2022 6 [place] Immunizations Combined list of available immunizations from the Department of Defense and Veterans Affairs facilities. 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 Status Comments Source INFLUENZA, HIGH-DOSE, TRIVALENT, PF 2023 MIMA VERONICA LEFT DELTO ID [id number] 135 complet ed [place] ZOSTER RECOMBINANT 2022 GÉNESIS GATSE RIGHT DELTO ID [id number] 187 complet ed [place] ZOSTER RECOMBINANT 2022 JAIME KYLE RIGHT DELTO ID [id number] 187 complet ed [facility] INFLUENZA, HIGH-DOSE, QUADRIVALENT 2022 JAIME KYLE AJITH LEFT DELTO ID [id number] A 197 complet ed [facility] COVID-19 (MODERNA), MRNA, LNP-S, BIVALENT, PF, 50 MCG/0.5 ML OR 25MCG/0.25 ML DOSE 1 2021 229 complet ed [facility] COVID-19 (MODERNA), MRNA, LNP-S, PF, 100 MCG/0.5ML DOSE OR 50 MCG/0.25ML DOSE 2021 207 complet ed [facility] COVID-19 (MODERNA), MRNA, LNP-S, PF, 100 MCG/0.5ML DOSE OR 50 MCG/0.25ML DOSE 3 2020 207 complet ed [facility] COVID-19 (MODERNA), MRNA, LNP-S, PF, 100 MCG/0.5ML DOSE OR 50 MCG/0.25ML DOSE 2 2020 207 complet ed [facility] COVID-19 (MODERNA), MRNA, LNP-S, PF, 100 MCG/0.5ML DOSE OR 50 MCG/0.25ML DOSE 1 2020 207 complet ed [facility] TDAP 03/28/ 2018 115 complet ed [facility] PNEUMOCOCCAL CONJUGATE PCV 13 2016 133 complet ed [facility] [place] [place] [facility] Results Combined list of recent chemistry, hematology [...] Apr 06, 2023 01:26 PM Reporting Lab: [address] [address] Performing Lab: [address] [address] [place] MICROALB UMIN CREATINI NE RATIO PANEL MICROALBUM IN [MASS/VOLU ME] IN URINE 0.9 mg/dL 04/05 Specimen Type: URINE No comment entered. Ordering Provider: SLOANE ALANIS Report Released Date/Time: Apr 06, 2023 01:26 PM Reporting Lab: [address] [address] Performing Lab: [address] [address] [place] MICROALB UMIN CREATINI NE RATIO PANEL CREATININE [MASS/VOLU ME] IN URINE 190.74 mg/dL 04/05 Specimen Type: URINE No comment entered. Ordering Provider: SLOANE ALANIS Report Released Date/Time: Apr 06, 2023 01:26 PM Reporting Lab: [address] [address] Performing Lab: [address] [address] [place] URINALYS IS COLOR OF URINE Yellow 04/05 Specimen Type: URINE Comment: If Glucose = >500 and Ketones are positive, please alert the Physician. Ordering Provider: SLOANE ALANIS Report Released Date/Time: Apr 06, 2023 01:26 PM Reporting Lab: [facility]PITALRST. VINCENT'[facility] BLOUNTTRN [facility]ITALUSETS [facility] [address] [facility] [address] Performing Lab: [facility]OSPITALRCLAY COUNTY HOSPITALN [facility]ITALUSEH[facility] [address] [facility] [address] [place] URINALYS IS APPEARANCE OF URINE Clear 04/05 Specimen Type: URINE Comment: If Glucose = >500 and Ketones are positive, please alert the Physician. Ordering Provider: SLOANE ALANIS Report Released Date/Time: Apr 06, 2023 01:26 PM Reporting Lab: [facility]OSPITALRST. VINCENT'S BLOUNTTRN [facility]OSPITALUSE[address] [address] Performing Lab: [facility]N [facility]ITALUSEHOSPITAL [facility] SUR[facility] [address] [facility] [address] [place] URINALYS IS GLUCOSE [MASS/VOLU ME] IN URINE Normalmg /dL 04/05 Specimen Type: URINE Comment: If Glucose = >500 and Ketones are positive, please alert the Physician. Ordering Provider: SLOANE ALANIS Report Released Date/Time: Apr 06, 2023 01:26 PM Reporting Lab: [facility]OSPITALRST. VINCENT'[facility] BLOUNTTRN [facility]OSPITALUSETS [facility] [address] [facility] [address] Performing Lab: [facility] HOSPITALRL TRN [facility]OSPITALUSETS [facility] [address] [facility] [address] [place] URINALYS IS KETONES [MASS/VOLU ME] IN URINE BY TEST STRIP NEGATIVE mg/dL 04/05 Specimen Type: URINE Comment: If Glucose = >500 and Ketones are positive, please alert the Physician. Ordering Provider: SLOANE ALANIS Report Released Date/Time: Apr 06, 2023 01:26 PM Reporting Lab: [facility]OSPITALRST. VINCENT'S BLOUNTTRN [facility]OSPITALUSETS [facility] [address] [facility] [address] Performing Lab: [facility]OSPITALRST. VINCENT'[facility] BLOUNTTRN [facility]OSPITALUSETS [facility] [address] [facility] [address] [place] URINALYS IS ERYTHROCYT ES [PRESENCE] IN URINE SEDIMENT BY LIGHT MICROSCOPY NEGATIVE mg/dL 04/05 Specimen Type: URINE Comment: If Glucose = >500 and Ketones are positive, please alert the Physician. Ordering Provider: SLOANE ALANIS Report Released Date/Time: Apr 06, 2023 01:26 PM Reporting Lab: [address] [address] Performing Lab: [address] [place], [place] [address] URINALYS IS PROTEIN [MASS/VOLU ME] IN URINE BY TEST STRIP 10 mg/dL 04/05 Specimen Type: URINE Comment: If Glucose = >500 and Ketones are positive, please alert the Physician. Ordering Provider: SLOANE ALANIS Report Released Date/Time: Apr 06, 2023 01:26 PM Reporting Lab: [address] [address] Performing Lab: [address] [address] [place] URINALYS IS NITRITE [PRESENCE] IN URINE NEGATIVE mg/dL 04/05 Specimen Type: URINE Comment: If Glucose = >500 and Ketones are positive, please alert the Physician. Ordering Provider: SLOANE ALANIS Report Released Date/Time: Apr 06, 2023 01:26 PM Reporting Lab: [address] [address] Performing Lab: [address] [address] [place] URINALYS IS BILIRUBIN. TOTAL [PRESENCE] IN URINE NEGATIVE mg/dL 04/05 Specimen Type: URINE Comment: If Glucose = >500 and Ketones are positive, please alert the Physician. Ordering Provider: SLOANE ALANIS Report Released Date/Time: Apr 06, 2023 01:26 PM Reporting Lab: [facility] [address] [facility] [address] Performing Lab: [address] [address] [place] URINALYS IS SPECIFIC GRAVITY OF URINE BY REFRACTOME TRY 1.030 1.016 - 1.022 04/05 H Specimen Type: URINE Comment: If Glucose = >500 and Ketones are positive, please alert the Physician. Ordering Provider: SLOANE ALANIS Report Released Date/Time: Apr 06, 2023 01:26 PM Reporting Lab: [address] [address] Performing Lab: [address] [address] [place] URINALYS IS PH OF URINE BY TEST STRIP 5.5 5.0 - 9.0 04/05 Specimen Type: URINE Comment: If Glucose = >500 and Ketones are positive, please alert the Physician. Ordering Provider: SLOANE ALANIS Report Released Date/Time: Apr 06, 2023 01:26 PM Reporting Lab: [address] [address] Performing Lab: [address] [address] [place] URINALYS IS UROBILINOG EN [MASS/VOLU ME] IN URINE BY TEST STRIP Normalmg /dL <2.0 - 2.0 04/05 Specimen Type: URINE Comment: If Glucose = >500 and Ketones are positive, please alert the Physician. Ordering Provider: SLOANE ALANIS Report Released Date/Time: Apr 06, 2023 01:26 PM Reporting Lab: [address] [address] Performing Lab: [address] [address] [place] URINALYS IS LEUKOCYTE ESTERASE [PRESENCE] IN URINE BY TEST STRIP NEGATIVE 04/05 Specimen Type: URINE Comment: If Glucose = >500 and Ketones are positive, please alert the Physician. Ordering Provider: SLOANE ALANIS Report Released Date/Time: Apr 06, 2023 01:26 PM Reporting Lab: [facility]OSPITALRST. VINCENT'[facility] BLOUNTTRN [facility] [address] [facility] [address] Performing Lab: [facility]OSPITALRCLAY COUNTY HOSPITALN [facility]OS[facility]ITALUSE[address] [address] [place] TSH THYROTROPI N [UNITS/VOL UME] IN SERUM OR PLASMA 2.71 u[IU]/mL 0.35 - 5.00 04/05 Specimen Type: SERUM No comment entered. Ordering Provider: SLOANE ALANIS Report Released Date/Time: Apr 06, 2023 01:26 PM Reporting Lab: [facility]ITALN [address] [address] Performing Lab: [facility]OSPITALRCLAY COUNTY HOSPITALN [facility]ITALUSE[address] [address] [place] VITAMIN D (25-OH) 25-HYDROXY VITAMIN D3 [MASS/VOLU ME] IN SERUM OR PLASMA 31 ng/mL 20 - 50 04/05 Specimen Type: SERUM No comment entered. Ordering Provider: SLOANE ALANIS Report Released Date/Time: Apr 06, 2023 01:26 PM Reporting Lab: [facility]OSPITALRCLAY COUNTY HOSPITALN [facility]ITALUSE[address] [address] Performing Lab: [facility] HOSPITALRL TRN [facility]ITALUSEHOSPITAL [facility] SUR[facility]ERY [address] [facility] [address] [place] FERRITIN FERRITIN [MASS/VOLU ME] IN SERUM OR PLASMA 25 ng/mL 20 - 300 04/05 Specimen Type: SERUM No comment entered. Ordering Provider: SLOANE ALANIS Report Released Date/Time: Apr 06, 2023 01:26 PM Reporting Lab: [facility]OSPITALRCLAY COUNTY HOSPITALN [address] [address] Performing Lab: [facility]OSPITALRCLAY COUNTY HOSPITALN [facility]ITALUSE[address] [address] [place] IRON & TIBC PANEL IRON BINDING CAPACITY [MASS/VOLU ME] IN SERUM OR PLASMA 350 ug/dL 204 - 475 04/05 Specimen Type: SERUM No comment entered. Ordering Provider: SLOANE ALANIS Report Released Date/Time: Apr 06, 2023 01:26 PM Reporting Lab: [facility]OSPITALRL [facility] [place] [facility] [address] [facility] [address] Performing Lab: [place] [facility] [place] [facility] [address] [facility] [address] [place] IRON & TIBC PANEL IRON [MASS/VOLU ME] IN SERUM OR PLASMA 63 ug/dL 40 - 160 04/05 Specimen Type: SERUM No comment entered. Ordering Provider: SLOANE ALANIS Report Released Date/Time: Apr 06, 2023 01:26 PM Reporting Lab: [facility] HOSPITALRL [place] [place] [address] [address] Performing Lab: [facility] HOSPITALRL [place] [place] [address] [address] [place] IRON & TIBC PANEL IRON/IRON BINDING CAPACITY.T OTAL [MASS RATIO] IN SERUM OR PLASMA 18.0 20.0 - 50.0 04/05 L Specimen Type: SERUM No comment entered. Ordering Provider: SLOANE ALANIS Report Released Date/Time: Apr 06, 2023 01:26 PM Reporting Lab: [facility]ITALRL [facility] [place] [facility] [address] [facility] [address] Performing Lab: [facility]OS[facility]ITALRL [place] [place] [address] [address] [place] IRON & TIBC PANEL TRANSFERRI N [MASS/VOLU ME] IN SERUM OR PLASMA 265 mg/dL 200 - 360 04/05 Specimen Type: SERUM No comment entered. Ordering Provider: SLOANE ALANIS Report Released Date/Time: Apr 06, 2023 01:26 PM Reporting Lab: [facility]ITALRL [place] [place] [facility] [address] [facility] [address] Performing Lab: [facility]N [facility] [address] [facility] [address] [place] PSA PROSTATE SPECIFIC AG [MASS/VOLU ME] IN SERUM OR PLASMA 1.91 ng/mL 0.00 - 4.00 04/05 Specimen Type: SERUM No comment entered. Ordering Provider: SLOANE ALANIS Report Released Date/Time: Apr 06, 2023 01:26 PM Reporting Lab: [facility]N [facility] [address] [facility] [address] Performing Lab: [address] [address] [place] BASIC METABOLI C PANEL (fasting ) UREA NITROGEN [MASS/VOLU ME] IN SERUM OR PLASMA 33 mg/dL 7 - 25 04/05 H Specimen Type: SERUM No comment entered. Ordering Provider: SLOANE ALANIS Report Released Date/Time: Apr 06, 2023 01:26 PM Reporting Lab: [facility]N [address] [address] Performing Lab: [address] [address] [place] BASIC METABOLI C PANEL (fasting ) GLUCOSE [MASS/VOLU ME] IN SERUM OR PLASMA 147 mg/dL 65 - 100 04/05 H Specimen Type: SERUM No comment entered. Ordering Provider: SLOANE ALANIS Report Released Date/Time: Apr 06, 2023 01:26 PM Reporting Lab: [address] [address] Performing Lab: [address] [address] [place] BASIC METABOLI C PANEL (fasting ) SODIUM [MOLES/VOL UME] IN SERUM OR PLASMA 140 mmol/L 135 - 145 04/05 Specimen Type: SERUM No comment entered. Ordering Provider: SLOANE ALANIS Report Released Date/Time: Apr 06, 2023 01:26 PM Reporting Lab: [facility]OSPITALRL TRN [facility]PITALUSETS [facility] [address] [facility] [address] Performing Lab: [facility]OSPITALRL WSTRN [facility]ITALUSEHOSPITAL [facility] SUR[facility]ERY [address] [facility] [address] [place] BASIC METABOLI C PANEL (fasting ) POTASSIUM [MOLES/VOL UME] IN SERUM OR PLASMA 4.5 mmol/L 3.5 - 5.0 04/05 Specimen Type: SERUM No comment entered. Ordering Provider: SLOANE ALANIS Report Released Date/Time: Apr 06, 2023 01:26 PM Reporting Lab: [facility]OSPITALRST. VINCENT'S BLOUNTTRN [address] [address] Performing Lab: [facility] HOSPITALRL TRN [address] [address] [place] BASIC METABOLI C PANEL (fasting ) CHLORIDE [MOLES/VOL UME] IN SERUM OR PLASMA 108 mmol/L 100 - 110 04/05 Specimen Type: SERUM No comment entered. Ordering Provider: SLOANE ALANIS Report Released Date/Time: Apr 06, 2023 01:26 PM Reporting Lab: [facility] HOSPITALRL TRN [facility]ITALUSE[address] [address] Performing Lab: [facility]OSPITALRST. VINCENT'S BLOUNTTRN [facility]ITALUSE[address] [address] [place] BASIC METABOLI C PANEL (fasting ) CARBON DIOXIDE, TOTAL [MOLES/VOL UME] IN SERUM OR PLASMA 23 meq/L 20 - 30 04/05 Specimen Type: SERUM No comment entered. Ordering Provider: SLOANE ALANIS Report Released Date/Time: Apr 06, 2023 01:26 PM Reporting Lab: [facility]OSPITALRL WSTRN [facility] HOSPITALUSETS [address] [address] Performing Lab: [facility]OSPITALRST. VINCENT'S BLOUNTTRN [facility]ITALUSE[address] [address] [place] BASIC METABOLI C PANEL (fasting ) CREATININE [MASS/VOLU ME] IN SERUM OR PLASMA 1.32 mg/dL 0.50 - 1.40 04/05 Specimen Type: SERUM No comment entered. Ordering Provider: SLOANE ALANIS Report Released Date/Time: Apr 06, 2023 01:26 PM Reporting Lab: [facility]N [address] [address] Performing Lab: [address] [address] [place] BASIC METABOLI C PANEL (fasting ) GLOMERULAR FILTRATION RATE/1.73 SQ M.PREDICTE D [VOLUME RATE/AREA] IN SERUM, PLASMA OR BLOOD BY CREATININE -BASED FORMULA (CKD-EPI 2020) 59 mL/min 60 04/05 L Specimen Type: SERUM No comment entered. Ordering Provider: SLOANE ALANIS Report Released Date/Time: Apr 06, 2023 01:26 PM Reporting Lab: [address] [address] Performing Lab: [address] [address] [place] LIPID PANEL FASTING CHOLESTERO L [MASS/VOLU ME] IN SERUM OR PLASMA 134 mg/dL 04/05 Specimen Type: SERUM No comment entered. Ordering Provider: SLOAEN ALANIS Report Released Date/Time: Apr 06, 2023 01:26 PM Reporting Lab: [address] [address] Performing Lab: [facility]N [address] [address] [place] LIPID PANEL FASTING TRIGLYCERI DE [MASS/VOLU ME] IN SERUM OR PLASMA 70 mg/dL 0 - 150 04/05 Specimen Type: SERUM No comment entered. Ordering Provider: SLOANE ALANIS Report Released Date/Time: Apr 06, 2023 01:26 PM Reporting Lab: [address] [address] Performing Lab: [address] [place] [address] [place] LIPID PANEL FASTING CHOLESTERO L IN LDL [MASS/VOLU ME] IN SERUM OR PLASMA BY KARINA Carlson 82 mg/dL 0 - 129 04/05 Specimen Type: SERUM No comment entered. Ordering Provider: SLOANE ALANIS Report Released Date/Time: Apr 06, 2023 01:26 PM Reporting Lab: [facility] HOSPITALRL TRN [facility]ITALUSE[address] [address] Performing Lab: [facility] HOSPITALRL TRN [address] [address] [place] LIPID PANEL FASTING CHOLESTERO L.TOTAL/CH OLESTEROL IN HDL [MASS RATIO] IN SERUM OR PLASMA 3.5 04/05 Specimen Type: SERUM No comment entered. Ordering Provider: SLOANE ALANIS Report Released Date/Time: Apr 06, 2023 01:26 PM Reporting Lab: [facility] HOSPITALRL TRN [facility]ITALUSE[address] [address] Performing Lab: [facility]OSPITALRL TRN [facility]ITALUSE[address] [address] [place] LIPID PANEL FASTING CHOLESTERO L IN HDL [MASS/VOLU ME] IN SERUM OR PLASMA 38 mg/dL 40 - 60 04/05 L Specimen Type: SERUM No comment entered. Ordering Provider: SLOANE ALANIS Report Released Date/Time: Apr 06, 2023 01:26 PM Reporting Lab: [facility]OSPITALRL TRN [facility]ITALUSE[address] [address] Performing Lab: [facility]OSPITALRCLAY COUNTY HOSPITALN [facility]ITALUSE[address] [address] [place] LIVER FUNCTION PROTEIN [MASS/VOLU ME] IN SERUM OR PLASMA 6.4 g/dL 6.0 - 8.3 04/05 Specimen Type: SERUM No comment entered. Ordering Provider: SLOANE ALANIS Report Released Date/Time: Apr 06, 2023 01:26 PM Reporting Lab: [facility]OSPITALRL TRSALT LAKE BEHAVIORAL HEALTH HOSPITALUSE[address] [place] [address] Performing Lab: [facility]ITALRL [facility] [place] [facility] [address] [facility] [address] [facility] LD LIVER FUNCTION ALBUMIN [MASS/VOLU ME] IN SERUM OR PLASMA 4.0 g/dL 3.5 - 5.0 04/05 Specimen Type: SERUM No comment entered. Ordering Provider: SLOANE ALANIS Report Released Date/Time: Apr 06, 2023 01:26 PM Reporting Lab: [facility]OSPITALRL [place] [facility] [address] [facility] [address] Performing Lab: [facility]OSPITALRST. VINCENT'S BLOUNTTRN [facility]ITALUSE[address] [address] [facility] LD LIVER FUNCTION ALKALINE PHOSPHATAS E [ENZYMATIC ACTIVITY/V OLUME] IN SERUM OR PLASMA 60 U/L 40 - 150 04/05 Specimen Type: SERUM No comment entered. Ordering Provider: SLOANE ALANIS Report Released Date/Time: Apr 06, 2023 01:26 PM Reporting Lab: [facility]OSPITALRL TRN [facility]ITALUSEH[facility] [address] [facility] [address] Performing Lab: [facility]OSP[facility]ITALUSETS [address] [address] [facility] LD LIVER FUNCTION ASPARTATE AMINOTRANS FERASE [ENZYMATIC ACTIVITY/V OLUME] IN SERUM OR PLASMA 23 U/L 5 - 34 04/05 Specimen Type: SERUM No comment entered. Ordering Provider: SLOANE ALANIS Report Released Date/Time: Apr 06, 2023 01:26 PM Reporting Lab: [facility] [place] [facility] [address] [facility] [address] Performing Lab: [facility]ITALRST. VINCENT[facility] BLOUNTTRN [facility]ITALUSETS [address] [address] [facility] LD LIVER FUNCTION ALANINE AMINOTRANS FERASE [ENZYMATIC ACTIVITY/V OLUME] IN SERUM OR PLASMA 23 U/L 04/05 Specimen Type: SERUM No comment entered. Ordering Provider: SLOANE ALANIS Report Released Date/Time: Apr 06, 2023 01:26 PM Reporting [facility] [address] [facility] [address] Performing Lab: [facility] [address] [facility] [address] [facility] LIVER FUNCTION BILIRUBIN. TOTAL [MASS/VOLU ME] IN SERUM OR PLASMA 0.5 mg/dL 0.2 - 1.2 04/05 Specimen Type: SERUM No comment entered. Ordering Provider: SLOANE ALANIS Report Released Date/Time: Apr 06, 2023 01:26 PM Reporting Lab: [facility] [address] [facility] [address] Performing Lab: [facility] [address] [facility] [address] [facility] Vital Signs Combined list of inpatient and outpatient Vital Signs from Department of Defense and Veterans Affairs, ranging from 12 months to all on record, depending upon the facility. Vital Sign Value Date Comments Source SYSTOLIC BLOOD PRESSURE 135 04/06/2024 11:38:32 [place] DIASTOLIC BLOOD PRESSURE 80 04/06/2024 11:38:32 [place] PULSE OXIMETRY 98 04/06/2024 11:38:32 [facility] WEIGHT 197 04/06/2024 11:38:32 [facility] BMI 27 kg/m2 04/06/2024 11:38:32 [facility] TEMPERATURE 97.6 04/06/2024 11:38:32 [facility] PULSE 76 04/06/2024 11:38:32 [facility] RESPIRATION 18 04/06/2024 11:38:32 [facility] Encounters Combined list of: 1) Encounters from Department of Veterans Affairs facilities going backup to the last 18 months, not all [place] inpatient encounters are included; 2) Encounters from the Department of Defense facilities going backup to 280 months. Location Location Details Encounter Type Encounter Number Reason For Visit Attending Provider ADM Date DC Date Status Disposition Source [facility] CONFORMITY EVALUATION [id number] Diagnos is: ICD-10- CM Z46.1 Encount er for fitting and adjustm ent of hearing aid LENIN ISIDRO 05/15 [facility] Out[facility] Encounter [id number] 1.06/13 [facility] REPAIR & ADJUST SPECTACLES [id number] Diagnos is: ICD-10- CM Z46.0 Encount er for fit/adj st of spectac les and contact lenses THOM PARIKH 06/15 [facility] Outpatient Encounter [id number] 1.06/16 [facility] [place] OFF/OP EST NOVEMBER X REQ PHY/QHP [id number] Diagnos is: ICD-10- CM Z23 Encount er for immuniz ation JOLEEN GATESAS 07/06 [place] [facility] Outpatient Encounter [id number] 1.10/16 [facility] Outpatient Encounter [id number] 1.10/18 [facility] HEARING AID FITTING/CH ECKING [id number] Diagnos is: ICD-10- CM Z46.1 Encount er for fitting and adjustm ent of hearing aid Luigi BONILLA 10/25 [facility] Outpatient Encounter [id number] 1.11/05 [facility] Out[facility] Encounter [id number] 1.11/08 [facility] Out[facility]counter [id number] 11/26 [facility] Out[facility] Encounter [id number] 12/30 [facility] Out[facility] Encounter [id number] 02/09 [facility] Out[facility] Encounter [id number] 02/10 [facility] Out[facility] Encounter [id number] 02/10 [facility] Out[facility] Encounter [id number] 02/10 [facility] Out[facility] Encounter [id number] 02/10 [facility] Out[facility] Encounter [id number] 03/22 [facility] Out[facility] Encounter [id number] 04/06 [facility] [place] O/P EST MOD 30 MIN [id number] Diagnos is: ICD-10- CM E11.9 Type 2 diabete s mellitu s without complic ations BERNARD BONILLA 04/06 [place] [facility] COMPRE OPH EXAM EST PT 1/> [id number] 1. 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, r eye LOGAN MUNOZ 04/26 [facility] FIT SPECTACLES MULTIFOCAL [id number] Diagnos is: ICD-10- CM Z46.0 Encount er for fit/adj st of spectac les and contact lenses LOGAN MUNOZ 04/27 [facility] Outpatient Encounter [id number] [facility] Outpatient Encounter [id number] 05/18 [facility] Social History Combined list of available smoking, tobacco, and other social history from Department of Defense and Veterans Affairs facilities. Social History Type Response Date Comment Sourc e Tobacco smoking status NHIS VA-TOBACCO NEVER USED 04/06/2024 [place] History of tobacco use VA-TOBACCO NEVER USED 04/06/2023 [facility] Plan of Care List of future care activities from Department of Veterans Affairs facilities. Additional future care activities may be listed in the Assessment and Plan section. Date/Time Care Activity Care Activity Detail Facili ty 04/03/2025 AMBULATORY - MEDICINE AMBULATORY - MEDICI BETSY [facility]RIST[facility] Advance Directives List of completed, amended, or rescinded Advance Directives on record at Department of Veterans Affairs facilities. An actual copy of the Directive is not included. Date Advance Directive Provider Source 04/06/2023 ADVANCE DIRECTIVE TRACEE KYLE
--- OUTSIDE RECORDS SUMMARY | 2024-10-24 16:19 | XMS_ITS | Patient Health Record ---
Author Organization [facility] Address [address] [facility] [place] [address] Care Team Providers Care Blanket Maker Name Role Phone Giovanni Choe Primary Care Provider Unav ailable Maurizio Rivas Unavailable [phone] Allergies No Known Allergies Results Component Value [...] meal s Orally Twice a day Active Dymuzf-Dimsbzyeb-SQK Complex - as directed Orally 01/25/2024 Active [...] W/U Status Risk Notes Problem Plantar wart (13487988) Plantar wart (B07.0) Active confirmed Problem Type 2 diabetes mellitus without complication (875346040) Type 2 diabetes mellitus without complication (E11.9) Active confirmed Vital Signs Height 6ft 1 in in 02/05/2024 Weight 195 lbs lbs 02/05/2024 BMI 25.72 kg/m2 02/05/2024 Procedures Procedure Date Ordered Date Performed Result Body Sit e 47706-Oado Destruction, 1-14 02/05/2024 N/A Encounters Encounter Location Date Provider Diagnosis [facility] [address] [place] [address] 02/05/2024 Maurizio Rivas Plantar wart B07.0 ; [...] Treatment Pending Test Test Name Order Date 77321-Nghj Destruction, -02/05/2024 Insurance Providers Payer Name Payer Address Payer Phone Subscriber Number Group Number Insured Name Patient Relationship to Insured Coverage Start Date Coverage End Date Medicare National [employer] [address] [place] [address] [id number] Michael Martinez Self - patient is the insured for Life [address] [place] [address] [id number] Michael Martinez Self - patient is the [...]
--- OUTSIDE RECORDS SUMMARY | 2024-10-24 16:19 | XMS_ITS | Clinical Summary ---
Author Organization [facility] Address [address] [facility] [address] [place] [address] Phone Care Team Providers Care Wooden Boat Builder Name Role Phone Giovanni Henriquez NP Primary Care Provider [phone] Allergies No known active allergies Medications atorvastatin [...] mouth 1 (one) time each day Active Hollywood-3 Fatty Acids (Fish Oil) 1000 MG capsule [...] Colorectal Cancer Screening: Sigmoidoscopy 2005 Influenza Vaccine (Season Ended) 2025 Hepatitis B Vaccine Aged Out No longe r eligible based on patient's age to complete this topic Insurance MEDICARE [facility] MEDICARE [facility] Care Teams Wooden Boat Builder Relationship Specialty Start Date End Date Giovanni Henriquez NP [facility] [place] [address] PCP - General Nurse Practitioner 06/21/21
--- OUTSIDE RECORDS SUMMARY | 2024-10-24 16:19 | XMS_ITS | Patient Health Record ---
Author Organization [facility] Address [address] [place] [address] Care Team Providers Care Water And Fire Technician Name Role Phone RICK RENE Primary Care Provider Johnathan John Unavailable [phone] Allergies No Known Allergies Reason For Referral No Information Medications Medication [...] Trulicity 1.5 MG/0.5ML as directed Subcutaneous Active Immunizations Vaccine Route Administration Date Status Comme nts Influenza Unknown 04/27/2018 Administered Influenza Unknown 06/11/2021 Administered Social History Tobacco Use: Social History Observation Description Date Details (start date - stop date) Never Smoker NA - NA Tobacco Use/Smoking Question Answer Notes Patient is [...] Never (0 point) Points 2 Interpretation Negative Section Notes: Nonsmoker; no sig alcohol Nonsmoker; no sig alcohol Nonsmoker; no sig alcohol Nonsmoker; no sig alcohol Problems Problem Type SNOMED Code ICD Code Onset Dates Problem Status W/U Status Risk Notes Problem 4522075 Diverticulitis o f large intestine without perforation or abscess without bleeding (K57.32) Active confirmed Problem 819796353 Encounter for screening for malignant neoplasm of colon (Z12.11) Active confirmed Problem 22225361 Iron deficiency anemia, unspecified iron deficiency anemia type (D50.9) Active confirmed Problem 195967484 Reflux esophagit is (K21.0) Active confirmed Problem Méndez esophagus (456479223) 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 Problem 603078033 Colorectal cance r (C19) Active confirmed Problem 243628347 Méndez''s esoph lópez without dysplasia (K22.70) Active confirmed Problem 820571776 Gastroesophageal reflux disease with esophagitis without hemorrhage (K21.00) Active confirmed Plan Of Treatment Future Test Test Name Order Date UPPER GI ENDOSCOPY 06/25/2018 COLONOSCOPY 06/25/2018 UPPER GI ENDOSCOPY 11/13/2021 Insurance Providers Payer Name Payer Address Payer Phone Subscriber Number Group Number Insured Name Patient Relationship to Insured Coverage Start Date Coverage End Date MEDICARE OF [place] [address] [place] [address] [phone] [id number] BENJAMIN KIDD Self - patient is the insured [employer] [address] [place] [address] [id number] BENJAMIN KIDD Self - patient is the insured Medical (General) History Medical History History ICD Code Screening colonoscopy [...]
--- OUTSIDE RECORDS SUMMARY | 2024-10-24 16:19 | XMS_ITS ---
Author Organization [facility] [place] Address [address] [place] [address] Care Team Providers Care Mixing Pan Tender Name Role Phone Giovanni Choe Primary Care Provider Unav ailable Maurizio Rivas Unavailable [phone] Allergies No Known Allergies REASON FOR VISIT [...] a day for 30 day(s) 01/25/2024 Active Kpvtul-Gkrsbcqxs-IQK Complex - as directed Orally 01/25/2024 Active [...] W/U Status Risk Notes Problem Plantar wart (02569683) Plantar wart (B07.0) Active confirmed Problem Type 2 diabetes mellitus without complication (082510110) Type 2 diabetes mellitus without complication (E11.9) Active confirmed Vital Signs Height 6ft 1 in in 02/05/2024 Weight 195 lbs lbs 02/05/2024 BMI 25.72 kg/m2 02/05/2024 Procedures Procedure Date Ordered Date Performed Result Body Sit e 80583-Pzph Destruction, 1-14 02/05/2024 N/A Encounters Encounter Location Date Provider Diagnosis [facility] [address] [place] [address] 02/05/2024 Maurizio Rivas Plantar wart B07.0 ; [...] days Pending Test Test Name Order Date 11350-Putm Destruction, 1-14 02/05/2024 Next Appt Details Follow Up: prn, Reason: Procedure Notes * Category Sub-Category Detail Notes Wart Treatment Procedure Verrucae were de brided to pin-point bleeding margins with sterile 15 surgical blade, silver nitrate chemocautery applied, recomm. immune-boosting meds such as zinc, recomm. follow up with topical chemosurgical agents, Pt defers any other forms of tx (11028) , Verrucae were debrided to pin-point bleeding margins with sterile 15 surgical blade, silver nitrate chemocautery applied, recomm. immune-boosting meds such as zinc, recomm. follow up with topical chemosurgical agents, Pt defers any other forms of tx (05533) Progress Notes * Michael MARTINEZ DDOB: (68 yo M)Acc No.[id number]:02/05/2024 Progress Notes Patient:?Michael MARTINEZ D Provider:?Maurizio Rivas DPM :1955???Age:68 Y???Sex:Male Festus e:02/05/2024 Address:[address] [place] [address] Pcp:HANY Riggins Subjective: * Chief Complaints: * [...] 6-7x /week. ?Marital status: . 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 * Medications:?TakingTrulicity 3 MG/0.5ML Solution [...] Tablet 1 tablet Orally Once a day Dueybe-Kzjnnyjfj-JMO Complex - Tablet as directed Orally Pentoxifylline [...] 1 tablet Orally Once a day Taking Qxzhwe-Buskuulzx-AIF Complex - Tablet as directed Orally Taking [...] kg. * Examination: ???Ophthalmology Referral: ?DIABETES EYE EXAM?Procedure Performed:?Yes ?Date of Exam Performed?11/27/2023 ?Findings of Diabetic Eye Exam:?no retinopathy?Dermatologic: ?SKIN FINDINGS:?Skin shows sign(s) of, dryness, scaling, [...] B/L.?FOOT MORPHOLOGY:?Pes Cavus structure.?FOOTWEAR:?good condition.?Vascular: ?DP PULSES (B):?3/4, B/L.?PT PULSES (B):?3/4, B/L.?CAPILLARY FILL TIME:?immediate, all digits, B/L.?TROPHIC CONDITION-TEXTURE/ELASTICITY/TURGOR/HAIR [...] for office visit today.?ORIENTED:?person, place, and time.?FOOT EXAM:?Lower Extremity Neurological Exam performed:?Yes ?Visual exam of foot performed:?Yes ?Date?02/05/2024 ?Footwear Evaluation?Footwear Evaluation performed:?Yes??? Assessment: * Assessment: 1.?Plantar wart - B07.0 [...] Pt defers any other forms of tx (23207) , Verrucae were debrided to pin-point bleeding margins with sterile 15 surgical blade, silver nitrate chemocautery applied, recomm. immune-boosting meds such as zinc, recomm. follow up with topical chemosurgical agents, Pt defers any other forms of tx (78765).? * Procedure Codes:?81726 Wart Destruction, 1-14 * Preventive Medicine:? ??Counseling:?Discussion:?-03: [...] Rivas DPM Date:?2023 Generated for Lucero rodriguez/Luiza/Mic on:?10/24/2024 04:19 PM EDT History and Physical Notes * HPI (History [...] LEFT Orthopedic FOOT MORPHOLOGY: Pes Cavus structure FOOTWEAR EVALUATION: good condition MUSCLE STRENGTH: 5/5 all groups [...]
== END 2024-10-24 15:20 | disposition home or self-care (01) ==
LOC: HO.HUSH 13:44
PROVIDERS: PCP Nurse Practitioner Family; Visit Provider Urology
DX: Z12.5 Encounter for screening for malignant neoplasm of prostate (principal); N40.0 Benign prostatic hyperplasia without lower urinary tract symptoms; N48.6 Induration penis plastica
CPT/HCPCS: 99214

== ENCOUNTER → 2024-10-24 13:44 | Outpatient (BNVA) | payer MEDICARE, OTHER, SELFPAY | PROVIDERS: PCP Nurse Practitioner Family; Visit Provider Urology ==

== ENCOUNTER 2024-11-07 13:37 | Outpatient (AMB) | payer MEDICARE, OTHER, SELFPAY ==
[2024-11-07 13:39] VITALS: BP 126/76; PULSE 90; RESP 20; TEMP 36.7; O2SAT 99; BMI 26.0
--- NOTE | 2024-11-07 13:39 | MHC.PC.OV ---
Vital Signs 11/07/24 13:39 Height 6 ft 1 in Weight 197 lb BMI 26.0 BP 126/76 Blood Pressure Location Lt brachial Position Sitting Respiration 20 Pulse 90 Pulse Source Pulse Oximeter Temp 98.1 F Temp Source Oral Pulse Oximetry (%) 99 Oxygen Delivery Method Room Air Intake Visit Reasons: 4m follow up Intake Note: Pt is here today for 4 months follow up visit. Allergies No Known Allergies [No Known Allergies*] Allergy (Verified 11/07/24 14:19) Medication List - Last Reconciled 11/07/24 by OVI Lai ammonium lactate 12% appl topical BID antiarthritic combination no.2 (glucosamine-chondroitin) mg PO atorvastatin 20 mg PO DAILY blood sugar diagnostic (FreeStyle Lite Strips) As directed three times a day cetirizine (All Day Allergy (cetirizine)) 10 mg PO DAILY PRN dulaglutide 3 mg (0.5 mL) subcut QWEEK ferrous sulfate 325 mg PO DAILY 90 days fluticasone propionate 50 mcg/actuation 1 spray intranasal BID hydrochlorothiazide 25 mg PO DAILY lancets (FreeStyle Lancets) As directed three time a day lidocaine 5% leave on most painful area for up to 12 hrs topical lisinopril 10 mg PO DAILY 90 days metformin 1,000 mg PO BID multivitamin 1 tab PO DAILY omega-3 fatty acids (Fish Oil Concentrate) 1,000 mg PO DAILY omeprazole 20 mg PO DAILY pentoxifylline ER 400 mg PO BID 90 days sildenafil 50 mg PO DAILY PRN tadalafil (Cialis) 5 mg PO DAILY vitamin E (dl, acetate) 450 mg PO DAILY 90 days Tobacco use date assessed: 11/07/24 Fall risk assessment: No Falls in past year Last assessed Fall Risk: 11/07/24 Dental Screening Dental Screen Date: 11/07/24 Did you have a dental visit in the last 12 months?: Yes Did you have a dental problem in the last 6 months where you did not have access to dental care?: No Was dental information given to patient?: Patient has dentist [facility] Medical History Diabetes GERD (gastroesophageal reflux disease) Barretts esophagus Patellofemoral arthritis of left knee Type 2 diabetes mellitus with diabetic polyneuropathy Subjective memory complaints Enlarged prostate Renal insufficiency Iron deficiency Hyperlipidemia HTN (hypertension) Hyperlipidemia LDL goal <100 Surgical History History of right inguinal hernia repair History of left knee surgery History of shoulder surgery History of tonsillectomy History of nasal surgery Hx of esophagogastroduodenoscopy Hx of colonoscopy History of foot surgery Family History Father Diabetes Mother Lung cancer Son No problems noted. Son No problems noted. Son No problems noted. Son No problems noted. Son No problems noted. Son No problems noted. Daughter No problems noted. Daughter No problems noted. Paternal Grandmother Diabetes Social History Household Members: Spouse Housing: House Alcohol intake: current Alcohol intake frequency: holidays/special occasions only Alcohol type: beer, wine, hard liquor and other Patient Tobacco Use Status: Never used Tobacco e-Cigarette/Vaping Use: Never Used Second Hand Smoke Exposure: No service: Yes Current occupational status: retired Cognitive needs: No Hearing needs: No Vision needs: Yes Questionnaire PHQ-9 Over the last 2 weeks, how often have you been bothered by any of the following problems? 1. Little interest or pleasure in doing things: not at all 2. Feeling down, depressed, or hopeless: not at all 3. Trouble falling or staying asleep, or sleeping too much: not at all 4. Feeling tired or having little energy: not at all 5. Poor appetite or overeating: not at all 6. Feeling bad about yourself - or that you are a failure or have let yourself or your family down: not at all 7. Trouble concentrating on things, such as reading the newspaper or watching television: not at all 8. Moving or speaking so slowly that other people could have noticed. Or the opposite - being so fidgety or restless that you have been moving around a lot more than usual: not at all 9. Thoughts that you would be better off or of hurting yourself in some way: not at all Total score: 0 Depression Screening Interpretation: Negative Depression Screening Done: Yes 84698 - PHQ-9 Billing: Yes Source: Developed by Drs. Johnathan Haas, Abelardo Casper and colleagues, with an educational ignacio from [employer] ([employer]). Thrive Questionnaire Date Thrive assessed: 11/07/24 I am a: Patient What is your living situation today?: I have a steady place to live Within the past 12 months, did the food you bought not last and you didn't have the money to get more?: Never true Within the past 12 months, did you worry whether your food would run out before you got money to buy more?: Never true Do you have trouble paying for medicines?: No Do you have trouble getting transportation to medical appointments?: No Do you have trouble paying your heating and electricity bill?: No Do you have trouble taking care of your child, family member or friend?: No Do you have trouble with day-to-day activities such as bathing, preparing meals, shopping, managing finances, etc.?: No Are you currently unemployed and looking for a job?: No Are you interested in more education?: Yes Please select the resources that you would like help with: None Currently or been in a relationship where the following occur: No concerns reported THRIVE Score: 0 AUDIT C Alcohol Use Questionnaire (AUDIT-C) 1. How often do you have a drink containing alcohol?: Never 3. How often do you have six or more drinks on one occasion?: Never Total Score: 0 PETAR-7 AMB Questionnaire PETAR-7 Date PETAR - 7 assessed: 11/07/24 Feeling nervous, anxious, or on edge: 0 = Not at all Not being able to stop or control worryin = Not at all Worrying too much about different things: 0 = Not at all Trouble relaxin = Not at all Being so restless that it is hard to sit still: 0 = Not at all Becoming easily annoyed or irritable: 0 = Not at all Feeling afraid as if something awful might happen: 0 = Not at all Total PETAR-7 score (0-4 normal; 5-9 mild; 10-14 moderate; 15-21 severe): 0 Source: Developed by Drs. Johnathan Haas, Abelardo Casper and colleagues, with an educational ignacio from [employer] PETAR-7 Assessment Billing PETAR-7 Assessment Tool: PETAR-7 Assessment 17655 Physical exam (Primary Care) Vital Signs: Last Vital Signs Temp 98.1 F 11/07/24 13:39 Pulse 90 11/07/24 13:39 Resp 20 11/07/24 13:39 BP 126/76 11/07/24 13:39 Pulse Ox 99 11/07/24 13:39 Oxygen Delivery Method Room Air 11/07/24 13:39 BMI result Body Mass Index 26.0 Tobacco/Smoking Status: Tobacco use Status Tobacco use date assessed 11/07/24 11/07/24 13:47 Patient Tobacco Use Status Never used Tobacco 11/07/24 13:47 e-Cigarette/Vaping Use Never Used 11/07/24 13:39 PHQ-9: PHQ-9 Score PHQ-9: Total score 0 11/07/24 13:55 Depression Screening Interpretation: Negative Thrive Assessment: Date of Thrive Assessment Date Thrive assessed 11/07/24 11/07/24 13:47 Currently or been in a relationship where the following occur: No concerns reported Results AMB Hemoglobin A1c AMB Hemoglobin A1c 6.5 % Last Edit by CECE Berrios on 11/07/24 13:55 Results Reviewed Results Reviewed: Laboratory Last Values Hgb A1c (Clinic) 6.5 % (4.0-6.0) H 11/07/24 13:48 Coding Level of Care Code Est Pt Level 3 (47020) Diagnoses Diabetes E11.9 Additional Codes PETAR-7 Assessment Billing - PETAR-7 Assessment Tool: PETAR-7 Assessment 18975 ([id number]) PHQ-9 - 52044 - PHQ-9 Billing: Yes ([id number]) Assessment & Plan Assessment & Plan (1) Diabetes: Code(s): E11.9 - Type 2 diabetes mellitus without complications Category: Medical Plan . Orders: Orders AMB Hemoglobin A1c Today Z13.9 - Encounter for screening, unspecified TSH reflex Free T4 Today E11.9 - Type 2 diabetes mellitus without complications Lipid Panel Today E11.9 - Type 2 diabetes mellitus without complications Complete Blood Count Auto Diff Today E11.9 - Type 2 diabetes mellitus without complications Comprehensive [place]. Panel Fast Today E11.9 - Type 2 diabetes mellitus without complications UA CC w/rflx Micro + Cult Today E11.9 - Type 2 diabetes mellitus without complications
--- OUTSIDE RECORDS SUMMARY | 2024-11-07 13:40 | XMS_ITS | Continuity of Care Document ---
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 It does not include entries that were removed or entered in error. Problem Status Onset Date Problem Type Date of Resolution Comments Source Allergic Rhinitis ([facility] [id number]) Active Condition [facility] [place] Méndez's esophagus Active Condition Apr 09, 2024 Entered By: GERRI ORNELAS Comment: Repeat EGD due 12/20[facility] Benign Prostatic Hypertrophy without Outflow Obstruction ([facility] [id number]) Active Condition [facility] Chronic kidney disease stage 3 Active Condition Apr 06, 2024 Entered By: RICK BONILLA Comment: eGFR 59 in APR 12 [facility] [employer] Cognitive impairment Active Condition [facility] Diabetes Mellitus Type 2 ([facility] [id number]) Active Condition [facility] Diabetic polyneuropathy Active Condition [facility] Erectile Dysfunction ([facility] [id number]) Active Condition [facility] Exposure to potentially hazardous substance Active Condition Oct 06, 2023 Entered By: AIMEE HERRERA Comment: Connect Snomed Code to ICD 10 Code refer to note dated 04/06/2023 [facility] GERD - Gastro-Esophageal Reflux Disease ([facility] [id number]) Active Condition [facility] [place] Hammer toe Active Condition Apr 06 023 Entered By: ULICES PAZ Comment: b/l [facility] [employer] History of surgery Active Condition Apr 06, 2023 Entered By: ULICES PAZ Comment: Foot surgerySep 2022 Entered By: ULICES PAZ Comment: Left knee surgerySep 2022 Entered By: ULICES PAZ Comment: Nasal surgerySep 2022 Entered By: ULICES PAZ Comment: Right inguinal hernia repairSep 2022 Entered By: ULICES PAZ Comment: Shoulder surgerySep 2022 Entered By: ULICES PAZ Comment: Tonsillectomy tonsillectomy [facility] HTN - Hypertension ([facility] 98234111) Active [facility] Hyperlipidemia ([facility] [id number]) [place] Iron deficiency Active Condition [facility] OA - Osteoarthritis of knee Active Condition Apr 06, 2023 Entered By: ULICES PAZ Comment: Patellofemoral arthritis of left knee [facility] Screening for malignant neoplasm of colon done Active Condition Apr 06, 2024 Entered By: RICK BONILLA Comment: Lasst Screen Colonoscopy approx 2018; Neg CRC or PolyposisSep 2023 Entered By: RICK BONILLA Comment: Done [place] [facility] Tinnitus Active Condition [facility] Diagnosis: ICD-10-CM Z46.0 Encounter for fit/adjst of spectacles and contact lenses Active Diagnosis [facility] Diagnosis: ICD-10-CM 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 I[facility] CETIRIZINE HCL 10MG TAB TAKE ONE TABLET BY MOUTH ONCE DAILY ORAL ACTIVE ULICES CORNELIUS [address] [facility] IELD DULAGLUTIDE 3MG/0.5ML INJ,SOLN,PE N INJECT 3MG [...] PRIOR TO SEXUAL ACTIVITY ORAL ACTIVE 05/19/2025 [id number] ULICES CORNELIUS 2023 IELD SILDENAFIL CITRATE 50MG TAB TAKE ONE TABLET BY MOUTH ONCE DAILY NEEDED TAKE 1 HOUR PRIOR TO SEXUAL ACTIVITY ORAL DISCONT INUED 04/11/2024 [id number] JOHN CORNELIUSKA M 2022 [address] [facility] IELD Immunizations Combined list of available immunizations from the Department of Defense and Veterans Affairs facilities. Immunization Series Date Given Administered By Site Reaction Lot Number CVX Code Drug Test Consultant Status Comments Source INFLUENZA, HIGH-DOSE, TRIVALENT, PF 2023 MIMA VERONICA LEFT DELTO ID [id number] 135 complet ed [facility] IELD ZOSTER RECOMBINANT 2022 GÉNESIS GATES RIGHT DELTO ID [id number] 187 complet ed Completed Series, [facility] IELD ZOSTER RECOMBINANT 2022 JAIME KYLE AJITH RIGHT DELTO ID [id number] 187 complet ed [facility] AT [facility] INFLUENZA, HIGH-DOSE, QUADRIVALENT 2022 SAROJJAIME AJITH LEFT DELTO ID [id number] 197 complet ed [facility] SETS [facility] COVID-19 (MODERNA), MRNA, LNP-S, BIVALENT, PF, 50 MCG/0.5 ML OR 25MCG/0.25 ML DOSE 1 2021 229 complet ed HISTORICA L INFORMATI ON - SOURCE UNSPECIFI [facility] SETS [facility] COVID-19 (MODERNA), MRNA, LNP-S, PF, 100 MCG/0.5ML DOSE OR 50 MCG/0.25ML DOSE 2021 207 complet ed HISTORICA L INFORMATI ON - SOURCE UNSPECIFI ED, [facility] SETS [facility] COVID-19 (MODERNA), MRNA, LNP-S, PF, 100 MCG/0.5ML DOSE OR 50 MCG/0.25ML DOSE 3 2020 207 complet ed HISTORICA L [facility]FORMATI [facility] - [facility] COVID-19 (MODERNA), MRNA, LNP-S, PF, 100 MCG/0.5ML DOSE OR 50 MCG/0.25ML DOSE 2 2020 207 complet ed HISTORICA L INFORMATI ON - SOURCE UNSPECIFI ED, [facility] COVID-19 (MODERNA), MRNA, LNP-S, PF, 100 MCG/0.5ML DOSE OR 50 MCG/0.25ML DOSE 1 2020 207 complet ed HISTORICA L INFORMATI ON - SOURCE UNSPECIFI ED, [facility] TDAP 2017 115 complet ed HISTORICA L INFORMATI ON - SOURCE UNSPECIFI ED, [facility] PNEUMOCOCCAL CONJUGATE PCV 13 2016 133 complet ed HISTORICA L INFORMATI ON - SOURCE UNSPECIFI ED, [facility] Results [...] Apr 06, 2023 01:26 PM Reporting Lab: [facility] [address] [address] Performing Lab: [facility] [address] [address] [place] MICROALB UMIN CREATINI NE RATIO PANEL MICROALBUM IN [MASS/VOLU ME] IN URINE 0.9 mg/dL 04/05 Specimen Type: URINE No comment entered. Ordering Provider: SLOANE ALANIS Report Released Date/Time: Apr 06, 2023 01:26 PM Reporting Lab: [facility] [address] [address] Performing Lab: [facility] [address] [address] [place] MICROALB UMIN CREATINI NE RATIO PANEL CREATININE [MASS/VOLU ME] IN URINE 190.74 mg/dL 04/05 Specimen Type: URINE No comment entered. Ordering Provider: SLOANE ALANIS Report Released Date/Time: Apr 06, 2023 01:26 PM Reporting Lab[facility] [address] [address] Performing Lab: [address] [address] [place] URINALYS IS COLOR OF URINE Yellow 04/05 Specimen Type: URINE Comment: If Glucose = >500 and Ketones are positive, please alert the Physician. Ordering Provider: SLOANE ALANIS Report Released Date/Time: Apr 06, 2023 01:26 PM Reporting Lab: [address] [address] Performing Lab: [address] [address] [place] URINALYS IS APPEARANCE OF URINE Clear 04/05 Specimen Type: URINE Comment: If Glucose = >500 and Ketones are positive, please alert the Physician. Ordering Provider: SLOANE ALANIS Report Released Date/Time: Apr 06, 2023 01:26 PM Reporting Lab: [address] [address] Performing Lab: [address] [address] [place] URINALYS IS GLUCOSE [MASS/VOLU ME] IN URINE Normalmg /dL 04/05 Specimen Type: URINE Comment: If Glucose = >500 and Ketones are positive, please alert the Physician. Ordering Provider: SLOANE ALANIS Report Released Date/Time: Apr 06, 2023 01:26 PM Reporting [facility] [address] [address] Performing Lab: [address] [address] [place] URINALYS IS KETONES [MASS/VOLU ME] IN URINE BY TEST STRIP NEGATIVE mg/dL 04/05 Specimen Type: URINE Comment: If Glucose = >500 and Ketones are positive, please alert the Physician. Ordering Provider: SLOANE ALANIS Report Released Date/Time: Apr 06, 2023 01:26 PM Reporting Lab: [address] [address] Performing Lab: [address] [address] [place] URINALYS IS ERYTHROCYT ES [PRESENCE] IN URINE SEDIMENT BY LIGHT MICROSCOPY NEGATIVE mg/dL 04/05 Specimen Type: URINE Comment: If Glucose = >500 and Ketones are positive, please alert the Physician. Ordering Provider: SLOANE ALANIS Report Released Date/Time: Apr 06, 2023 01:26 PM Reporting Lab: [address] [address] Performing Lab: [address] [address] [place] URINALYS IS PROTEIN [MASS/VOLU ME] IN URINE BY TEST STRIP 10 mg/dL 04/05 Specimen Type: URINE Comment: If Glucose = >500 and Ketones are positive, please alert the Physician. Ordering Provider: SLOANE ALANIS Report Released Date/Time: Apr 06, 2023 01:26 PM Reporting Lab: [address] [address] Performing Lab: [address] [address] [place] URINALYS IS NITRITE [PRESENCE] IN URINE NEGATIVE mg/dL 04/05 Specimen Type: URINE Comment: If Glucose = >500 and Ketones are positive, please alert the Physician. Ordering Provider: SLOANE ALANIS Report Released Date/Time: Apr 06, 2023 01:26 PM Reporting Lab: [address] [address] Performing Lab: [address] [address] [place] URINALYS IS BILIRUBIN. TOTAL [PRESENCE] IN URINE NEGATIVE mg/dL 04/05 Specimen Type: URINE Comment: If Glucose = >500 and Ketones are positive, please alert the Physician. Ordering Provider: SLOANE ALANIS Report Released Date/Time: Apr 06, 2023 01:26 PM Reporting Lab: [address] [address] Performing Lab: [address] [address] [place] URINALYS IS SPECIFIC GRAVITY OF URINE BY REFRACTOME TRY 1.030 1.016 - 1.022 04/05 H Specimen Type: URINE Comment: If Glucose = >500 and Ketones are positive, please alert the Physician. Ordering Provider: SLOANE ALANIS Report Released Date/Time: Apr 06, 2023 01:26 PM Reporting Lab: [address] [address] Performing Lab: [address] [address] [place] URINAL[place] PH OF URINE BY TEST STRIP 5.5 5.0 - 9.0 04/05 Specimen Type: URINE Comment: If Glucose = >500 and Ketones are positive, please alert the Physician. Ordering Provider: SLOANE ALANIS Report Released Date/Time: Apr 06, 2023 01:26 PM Reporting Lab: [address] [address] Performing Lab: [address] [address] [place] URINALYS IS UROBILINOG EN [MASS/VOLU ME] IN URINE BY TEST STRIP Normalmg /dL <2.0 - 2.0 04/05 Specimen Type: URINE Comment: If Glucose = >500 and Ketones are positive, please alert the Physician. Ordering Provider: SLOANE ALANIS Report Released Date/Time: Apr 06, 2023 01:26 PM Reporting Lab: [facility] [address] [address] Performing [facility]: [facility] [address] [address] [place] URINALYS IS LEUKOCYTE ESTERASE [PRESENCE] IN URINE BY TEST STRIP NEGATIVE 04/05 Specimen Type: URINE Comment: If Glucose = >500 and Ketones are positive, please alert the Physician. Ordering Provider: SLOANE ALANIS Report Released Date/Time: Apr 06, 2023 01:26 PM Reporting Lab: [facility] [address] [address] Performing Lab: [facility] [address] [place] TSH THYROTROPI N [UNITS/VOL UME] IN SERUM OR PLASMA 2.71 u[IU]/mL 0.35 - 5.00 04/05 Specimen Type: SERUM No comment entered. Ordering Provider: SLOANE ALANIS Report Released Date/Time: Apr 06, 2023 01:26 PM Reporting Lab: [facility]N [facility] [address] Performing Lab: [facility]TRN [facility] [address] [place] VITAMIN D (25-OH) 25-HYDROXY VITAMIN D3 [MASS/VOLU ME] IN SERUM OR PLASMA 31 ng/mL 20 - 50 04/05 Specimen Type: SERUM No comment entered. Ordering Provider: SLOANE ALANIS Report Released Date/Time: Apr 06, 2023 01:26 PM Reporting Lab: [facility]ENTERTRN [facility] [address] Performing Lab: [facility]ITALN [facility] [address] [place] FERRITIN FERRITIN [MASS/VOLU ME] IN SERUM OR PLASMA 25 ng/mL 20 - 300 04/05 Specimen Type: SERUM No comment entered. Ordering Provider: SLOANE ALANIS Report Released Date/Time: Apr 06, 2023 01:26 PM Reporting Lab: [facility] [address] [address] Performing Lab: [facility] [address] [address] [place] IRON & TIBC PANEL IRON BINDING CAPACITY [MASS/VOLU ME] IN SERUM OR PLASMA 350 ug/dL 204 - 475 04/05 Specimen Type: SERUM No comment entered. Ordering Provider: SLOANE ALANIS Report Released Date/Time: Apr 06, 2023 01:26 PM Reporting Lab: [facility] [place] [address] [address] Performing Lab: [facility] [place] [address] [address] [place] IRON & TIBC PANEL IRON [MASS/VOLU ME] IN SERUM OR PLASMA 63 ug/dL 40 - 160 04/05 Specimen Type: SERUM No comment entered. Ordering Provider: SLOANE ALANIS Report Released Date/Time: Apr 06, 2023 01:26 PM Reporting Lab: [facility] [place] [address] [address] Performing Lab: [facility] [place] [address] [address] [place] IRON & TIBC PANEL IRON/IRON BINDING CAPACITY.T OTAL [MASS RATIO] IN SERUM OR PLASMA 18.0 20.0 - 50.0 04/05 L Specimen Type: SERUM No comment entered. Ordering Provider: SLOANE ALANIS Report Released Date/Time: Apr 06, 2023 01:26 PM Reporting Lab: [facility] [place] [address] [address] Performing Lab: [facility] [address] [address] [place] IRON & TIBC PANEL TRANSFERRI N [MASS/VOLU ME] IN SERUM OR PLASMA 265 mg/dL 200 - 360 04/05 Specimen Type: SERUM No comment entered. Ordering Provider: SLOANE ALANIS Report Released Date/Time: Apr 06, 2023 01:26 PM Reporting Lab: [facility] [address] [address] Performing Lab: [address] [address] [place] PSA PROSTATE SPECIFIC AG [MASS/VOLU ME] IN SERUM OR PLASMA 1.91 ng/mL 0.00 - 4.00 04/05 Specimen Type: SERUM No comment entered. Ordering Provider: SLOANE ALANIS Report Released Date/Time: Apr 06, 2023 01:26 PM Reporting Lab: [facility] [address] [address] Performing Lab: [facility] [address] [address] [place] BASIC METABOLI C PANEL (fasting ) UREA NITROGEN [MASS/VOLU ME] IN SERUM OR PLASMA 33 mg/dL 7 - 25 04/05 H Specimen Type: SERUM No comment entered. Ordering Provider: SLOANE ALANIS Report Released Date/Time: Apr 06, 2023 01:26 PM Reporting Lab: [facility] [address] [address] Performing Lab: [address] [address] [place] BASIC METABOLI C PANEL (fasting ) GLUCOSE [MASS/VOLU ME] IN SERUM OR PLASMA 147 mg/dL 65 - 100 04/05 H Specimen Type: SERUM No comment entered. Ordering Provider: SLOANE ALANIS Report Released Date/Time: Apr 06, 2023 01:26 PM Reporting Lab: [facility] [address] [address] Performing Lab: [facility] [address] [address] [place] BASIC METABOLI C PANEL (fasting ) SODIUM [MOLES/VOL UME] IN SERUM OR PLASMA 140 mmol/L 135 - 145 04/05 Specimen Type: SERUM No comment entered. Ordering Provider: SLOANE ALANIS Report Released Date/Time: Apr 06, 2023 01:26 PM Reporting Lab: [facility] [address] [address] Performing Lab: [facility] [address] [address] [place] BASIC METABOLI C PANEL (fasting ) POTASSIUM [MOLES/VOL UME] IN SERUM OR PLASMA 4.5 mmol/L 3.5 - 5.0 04/05 Specimen Type: SERUM No comment entered. Ordering Provider: SLOANE ALANIS Report Released Date/Time: Apr 06, 2023 01:26 PM Reporting Lab: [facility] [address] [address] Performing Lab: [facility] [address] [address] [place] BASIC METABOLI C PANEL (fasting ) CHLORIDE [MOLES/VOL UME] IN SERUM OR PLASMA 108 mmol/L 100 - 110 04/05 Specimen Type: SERUM No comment entered. Ordering Provider: SLOANE ALANIS Report Released Date/Time: Apr 06, 2023 01:26 PM Reporting Lab: [facility] [address] [address] Performing Lab: [facility] [address] [address] [place] BASIC METABOLI C PANEL (fasting ) CARBON DIOXIDE, TOTAL [MOLES/VOL UME] IN SERUM OR PLASMA 23 meq/L 20 - 30 04/05 Specimen Type: SERUM No comment entered. Ordering Provider: SLOANE ALANIS Report Released Date/Time: Apr 06, 2023 01:26 PM Reporting Lab: [facility]N [address] [address] Performing Lab: [facility]N [address] [address] [place] BASIC METABOLI C PANEL (fasting ) CREATININE [MASS/VOLU ME] IN SERUM OR PLASMA 1.32 mg/dL 0.50 - 1.40 04/05 Specimen Type: SERUM No comment entered. Ordering Provider: SLOANE ALANIS Report Released Date/Time: Apr 06, 2023 01:26 PM Reporting Lab: [facility] [address] [address] Performing Lab: [address] [address] [place] BASIC METABOLI C PANEL (fasting ) GLOMERULAR FILTRATION RATE/1.73 SQ M.PREDICTE D [VOLUME RATE/AREA] IN SERUM, PLASMA OR BLOOD BY CREATININE -BASED FORMULA (CKD-EPI 2020) 59 mL/min 60 04/05 L Specimen Type: SERUM No comment entered. Ordering Provider: SLOANE ALANIS Report Released Date/Time: Apr 06, 2023 01:26 PM Reporting Lab: [address] [address] Performing Lab: [facility] [address] [place] LIPID PANEL FASTING CHOLESTERO L [MASS/VOLU ME] IN SERUM OR PLASMA 134 mg/dL 04/05 Specimen Type: SERUM No comment entered. Ordering Provider: SLOANE ALANIS Report Released Date/Time: Apr 06, 2023 01:26 PM Reporting Lab: [facility] [address] [address] Performing Lab: [facility] [address] [address] [place] LIPID PANEL FASTING TRIGLYCERI DE [MASS/VOLU ME] IN SERUM OR PLASMA 70 mg/dL 0 - 150 04/05 Specimen Type: SERUM No comment entered. Ordering Provider: SLOANE ALANIS Report Released Date/Time: Apr 06, 2023 01:26 PM Reporting Lab: [address] [address] Performing Lab: [facility] [address] [address] [place] LIPID PANEL FASTING CHOLESTERO L IN LDL [MASS/VOLU ME] IN SERUM OR PLASMA BY CALCULAADRIANO N 82 mg/dL 0 - 129 04/05 Specimen Type: SERUM No comment entered. Ordering Provider: SLOANE ALANIS Report Released Date/Time: Apr 06, 2023 01:26 PM Reporting Lab: [address] [address] Performing Lab: [address] [address] [facility] [place] LIPID PANEL FASTING CHOLESTERO L.TOTAL/CH OLESTEROL IN HDL [MASS RATIO] IN SERUM OR PLASMA 3.5 04/05 Specimen Type: SERUM No comment entered. Ordering Provider: SLOANE ALANIS Report Released Date/Time: Apr 06, 2023 01:26 PM Reporting Lab: [facility] [address] [address] Performing Lab: [facility] [address] [address] [facility] [place] LIPID PANEL FASTING CHOLESTERO L IN HDL [MASS/VOLU ME] IN SERUM OR PLASMA 38 mg/dL 40 - 60 04/05 L Specimen Type: SERUM No comment entered. Ordering Provider: SLOANE ALANIS Report Released Date/Time: Apr 06, 2023 01:26 PM Reporting Lab: [facility] [address] [address] Performing Lab: [facility]TRN [facility] [address] [address] [facility] [place] LIVER FUNCTION PROTEIN [MASS/VOLU ME] IN SERUM OR PLASMA 6.4 g/dL 6.0 - 8.3 04/05 Specimen Type: SERUM No comment entered. Ordering Provider: SLOANE ALANIS Report Released Date/Time: Apr 06, 2023 01:26 PM Reporting Lab: [facility]ENTERTRN [facility]ITALUSER[facility] [address] [address] Performing Lab: [facility]N [address] [address] [facility] LD LIVER FUNCTION ALBUMIN [MASS/VOLU ME] IN SERUM OR PLASMA 4.0 g/dL 3.5 - 5.0 04/05 Specimen Type: SERUM No comment entered. Ordering Provider: SLOANE ALANIS Report Released Date/Time: Apr 06, 2023 01:26 PM Reporting Lab: [facility] [address] Performing Lab: [facility] [address] [address] [facility] [place] LIVER FUNCTION ALKALINE PHOSPHATAS E [ENZYMATIC ACTIVITY/V OLUME] IN SERUM OR PLASMA 60 U/L 40 - 150 04/05 Specimen Type: SERUM No comment entered. Ordering Provider: SLOANE ALANIS Report Released Date/Time: Apr 06, 2023 01:26 PM Reporting Lab: [facility] [address] Performing Lab: [facility] [address] [address] [facility] [place] LIVER FUNCTION ASPARTATE AMINOTRANS FERASE [ENZYMATIC ACTIVITY/V OLUME] IN SERUM OR PLASMA 23 U/L 5 - 34 04/05 Specimen Type: SERUM No comment entered. Ordering Provider: SLOANE ALANIS Report Released Date/Time: Apr 06, 2023 01:26 PM Reporting Lab: [facility] [address] [address] Performing Lab: [facility] [address] [address] [facility] LIVER FUNCTION ALANINE AMINOTRANS FERASE [ENZYMATIC ACTIVITY/V OLUME] IN SERUM OR PLASMA 23 U/L 04/05 Specimen Type: SERUM No comment entered. Ordering Provider: SLOANE ALANIS Report Released Date/Time: Apr 06, 2023 01:26 PM Reporting Lab: [facility] [address] [address] Performing Lab: [address] [address] [facility] LIVER FUNCTION BILIRUBIN. TOTAL [MASS/VOLU ME] IN SERUM OR PLASMA 0.5 mg/dL 0.2 - 1.2 04/05 Specimen Type: SERUM No comment entered. Ordering Provider: SLOANE ALANIS Report Released Date/Time: Apr 06, 2023 01:26 PM Reporting Lab: [facility] [address] [address] Performing Lab: [address] [address] [facility] Vital Signs Combined list of inpatient and outpatient Vital Signs from Department of Defense and Veterans Affairs, ranging from 12 months to all on record, depending upon the facility. Vital Sign Value Date Comments Source SYSTOLIC BLOOD PRESSURE 135 04/06/2024 11:38:32 [employer] DIASTOLIC BLOOD PRESSURE 80 04/06/2024 11:38:32 [employer] PULSE OXIMETRY 98 04/06/2024 11:38:32 [place] WEIGHT 197 04/06/2024 11:38:32 [facility] BMI 27 kg/m2 04/06/2024 11:38:32 [facility] TEMPERATURE 97.6 04/06/2024 11:38:32 [facility] PULSE 76 04/06/2024 11:38:32 [facility] RESPIRATION 18 04/06/2024 11:38:32 [facility] [place] Encounters Combined list of: 1) Encounters from Department of Veterans Affairs facilities going backup to the last 18 months, not all VA inpatient encounters are included; 2) Encounters from the Department of Defense facilities going backup to 280 months. Location Location Details Encounter Type Encounter Number Reason For Visit Attending Provider ADM Date DC Date Status Disposition Source [facility] CONFORMITY EVALUATION [id number] Diagnos is: ICD-10- CM Z46.1 Encount er for fitting and adjustm ent of hearing aid LENIN ISIDRO 05/15 [facility] Outpatient Encounter [id number] [facility] REPAIR & ADJUST SPECTACLES [id number] Diagnos is: ICD-10- CM Z46.0 Encount er for fit/adj st of spectac les and contact lenses THOM PARIKH 06/15 [facility] Outpatient Encounter [id number] 06/16 [facility] [place] OFF/OP EST NOVEMBER X REQ PHY/QHP [id number] Diagnos is: ICD-10- CM Z23 Encount er for immuniz ation JOLEEN GATES 07/06 [place] [facility] En[facility] [id number] 1.10/16 [facility] [id number] 1.10/18 [facility] HEARING AID FITTING/CH ECKING [id number] Diagnos is: ICD-10- CM Z46.1 Encount er for fitting and adjustm ent of hearing aid Luigi BONILLA 10/25 [facility] Encounter [id number] 1.11/05 [facility] Encounter [id number] 1.11/08 [facility] Out[facility] Encounter [id number] 11/26 [facility] Encounter [id number] 12/30 [facility] Out[facility] Encounter [id number] 02/09 [facility] Encounter [id number] 02/10 [facility] Out[facility] Encounter [id number] 02/10 [facility] Out[facility] Encounter [id number] 02/10 [facility] Out[facility] Encounter [id number] 02/10 [facility] Out[facility] Encounter [id number] 03/22 [facility] Out[facility] Encounter [id number] 04/06 [facility] LD OFFICE O/P EST MOD 30 MIN [id number] Diagnos is: ICD-10- CM E11.9 Type 2 diabete s mellitu s without complic ations BERNARD BONILLA 04/06 [place] [facility] COMPRE OPH EXAM EST PT 1/> [id number] 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 Diagnos is: ICD-10- CM Z46.0 Encount er for fit/adj st of spectac les and contact lenses LOGAN MUNOZ 04/27 [facility] Outpatient Encounter [id number] 05/16 [facility] Outpatient Encounter [id number] 05/18 [facility] Social History Combined list of available smoking, tobacco, and other social history from Department of Defense and Veterans Affairs facilities. Social History Type Response Date Comment Sourc e Tobacco smoking status WVIS VA-TOBACCO NEVER USED 04/06/2024 [facility] D History of tobacco use VA-TOBACCO NEVER USED 04/06/2023 [facility] Plan of Care List of future care activities from Department of Veterans Affairs facilities. Additional future care activities may be listed in the Assessment and Plan section. Date/Time Care Activity Care Activity Detail Facili ty 04/03/2025 AMBULATORY - MEDICINE AMBULATORY - MEDICI [facility] Advance Directives List of completed, amended, or rescinded Advance Directives on record at Department of Veterans Affairs facilities. An actual copy of the Directive is not included. Date Advance Directive Provider Source 04/06/2023 ADVANCE DIRECTIVE TRACEE KYLE
--- OUTSIDE RECORDS SUMMARY | 2024-11-07 13:40 | XMS_ITS | Clinical Summary ---
Author Organization [facility] Address [address] [facility] [address] [place] [address] Phone Care Team Providers Care Grades 1 Thru 6 Visiting Teacher Name Role Phone Giovanni Henriquez NP Primary Care Provider [phone] Allergies No known active allergies Medications atorvastatin [...] mouth 1 (one) time each day Active [place]-3 Fatty Acids (Fish Oil) 1000 MG capsule [...] Due Date Last Done Comments Pneumococcal Vaccine: 50+ Ye ars (1 of 2 - PCV) 11/01/1975 Colorectal Cancer Screening: Annual FOBT 2005 Colorectal Cancer Screening: Colonoscopy 2005 Colorectal Cancer Screening: Sigmoidoscopy 2005 Influenza Vaccine (Season Ended) 2025 Hepatitis B Vaccine Aged Out No longe r eligible based on patient's age to complete this topic Insurance Medicare [facility] Medicare [facility] Care Teams Grades 1 Thru 6 Visiting Teacher Relationship Specialty Start Date End Date Giovanni Henriquez NP [facility] [place] [address] PCP - General Nurse Practitioner 06/21/21
--- OUTSIDE RECORDS SUMMARY | 2024-11-07 13:41 | XMS_ITS ---
Author Organization [facility] Address [address] [place] [address] Care Team Providers Care Bag Turner Name Role Phone Giovanni Choe Primary Care Provider Unav ailable Maurizio Rivas Unavailable [phone] Allergies No Known Allergies REASON FOR VISIT [...] a day for 30 day(s) 01/25/2024 Active Hkwluo-Fnyqskbgj-ARA Complex - as directed Orally 01/25/2024 Active [...] W/U Status Risk Notes Problem Plantar wart (42427053) Plantar wart (B07.0) Active confirmed Problem Type 2 diabetes mellitus without complication (288059396) Type 2 diabetes mellitus without complication (E11.9) Active confirmed Vital Signs Height 6ft 1 in in 02/05/2024 Weight 195 lbs lbs 02/05/2024 BMI 25.72 kg/m2 02/05/2024 Procedures Procedure Date Ordered Date Performed Result Body Sit e 15982-Gzie Destruction, 1-14 02/05/2024 N/A Encounters Encounter Location Date Provider Diagnosis [facility] [place] [address] [place] [address] 02/05/2024 Maurizio Rivas Plantar wart B07.0 ; [...] days Pending Test Test Name Order Date 03323-Epjy Destruction, 1-14 02/05/2024 Next Appt Details Follow Up: prn, Reason: Procedure Notes * Category Sub-Category Detail Notes Wart Treatment Procedure Verrucae were de brided to pin-point bleeding margins with sterile 15 surgical blade, silver nitrate chemocautery applied, recomm. immune-boosting meds such as zinc, recomm. follow up with topical chemosurgical agents, Pt defers any other forms of tx (28992) , Verrucae were debrided to pin-point bleeding margins with sterile 15 surgical blade, silver nitrate chemocautery applied, recomm. immune-boosting meds such as zinc, recomm. follow up with topical chemosurgical agents, Pt defers any other forms of tx (64900) Progress Notes * Michael MARTINEZ DDOB: (68 yo M)Acc No.[id number]:02/05/2024 Progress Notes Patient:?Michael MARTINEZ D Provider:?Maurizio Rivas DPM :1955???Age:68 Y???Sex:Male Festus e:02/05/2024 Address:[address] [place] [address] Pcp:HANY Riggins Subjective: * Chief Complaints: * [...] 6-7x /week. ?Marital status: . 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 * Medications:?TakingTrulicity 3 MG/0.5ML Solution Pen-injector [...] Tablet 1 tablet Orally Once a day Welxat-Qguynnmmt-VAT Complex - Tablet as directed Orally Pentoxifylline [...] 1 tablet Orally Once a day Taking Fkqlnb-Ntpzflcgd-MVO Complex - Tablet as directed Orally Taking [...] Pt defers any other forms of tx (33630) , Verrucae were debrided to pin-point bleeding margins with sterile 15 surgical blade, silver nitrate chemocautery applied, recomm. immune-boosting meds such as zinc, recomm. follow up with topical chemosurgical agents, Pt defers any other forms of tx (91445).? * Procedure Codes:?70318 Wart Destruction, 1-14 * Preventive Medicine:? ??Counseling:?Discussion:?-03: [...] Rivas DPM Date:?2023 Generated for Lucero rodriguez/Luiza/Mic on:?11/07/2024 01:40 PM EDT History and Physical Notes * [...]
--- OUTSIDE RECORDS SUMMARY | 2024-11-07 13:41 | XMS_ITS | Patient Health Record ---
Author Organization [facility] Address [address] [address] Care Team Providers Care Forestry Conservation Worker Name Role Phone Giovanni Choe Primary Care Provider Unav ailable Maurizio Rivas Unavailable [phone] Allergies No Known Allergies Results Component Value [...] meal s Orally Twice a day Active Uytwgv-Arfequufh-FOZ Complex - as directed Orally 01/25/2024 Active [...] W/U Status Risk Notes Problem Plantar wart (91727428) Plantar wart (B07.0) Active confirmed Problem Type 2 diabetes mellitus without complication (541350451) Type 2 diabetes mellitus without complication (E11.9) Active confirmed Vital Signs Height 6ft 1 in in 02/05/2024 Weight 195 lbs lbs 02/05/2024 BMI 25.72 kg/m2 02/05/2024 Procedures Procedure Date Ordered Date Performed Result Body Sit e 12555-Utbe Destruction, 1-14 02/05/2024 N/A Encounters Encounter Location Date Provider Diagnosis [facility] [place] [address] [place] [address] 02/05/2024 Maurizio Rivas Plantar wart B07.0 ; [...] Treatment Pending Test Test Name Order Date 09412-Mncu Destruction, -02/05/2024 Insurance Providers Payer Name Payer Address Payer Phone Subscriber Number Group Number Insured Name Patient Relationship to Insured Coverage Start Date Coverage End Date Medicare National [employer] [address] [place] [address] [id number] Michael Martinez Self - patient is the insured for Life [address] [place] [address] [id number] Michael Martinez Self - patient is the [...]
== END 2024-11-07 14:16 | disposition home or self-care (01) ==
LOC: HO.HMCC 13:38
PROVIDERS: PCP Nurse Practitioner Family; Visit Provider Nurse Practitioner Family
DX: Z13.9 Encounter for screening, unspecified (principal); E11.9 Type 2 diabetes mellitus without complications

== ENCOUNTER → 2024-11-07 13:37 | Outpatient (BNVA) | payer MEDICARE, OTHER, SELFPAY | PROVIDERS: PCP Nurse Practitioner Family; Visit Provider Nurse Practitioner Family | DX: E11.9 Type 2 diabetes mellitus without complications (principal) | CPT/HCPCS: 83036; 96127; 99212 ==

== ENCOUNTER 2025-03-23 14:12 | Outpatient (AMB) | payer MEDICARE, OTHER, SELFPAY ==
[2025-03-23 14:21] VITALS: BP 120/68; PULSE 77; TEMP 37; O2SAT 99; BMI 25.9
--- NOTE | 2025-03-23 14:21 | AM.OFFWIN_ITS ---
Intake Vital Signs 03/23/25 14:21 Height 6 ft 1 in Weight 196 lb BMI 25.9 BP 120/68 Blood Pressure Location Lt brachial Position Sitting Pulse 77 Pulse Source Pulse Oximeter Temp 98.6 F Temp Source Oral Pulse Oximetry (%) 99 Oxygen Delivery Method Room Air Intake Visit Reasons: EP-rt mid toe red blister & swollen Intake Note: pt presents with right 3rd toe swelling with a blister and pain at base of toe with discomfort with flexing toe- s/s started yesterday afternoon- he is s/p hammer toe repair sx 08/2024 Patient Tobacco Use Status: Never used Tobacco Allergies No Known Allergies (No Known Allergies*) Allergy (Verified 03/23/25 14:24) Do you need a note to return to daycare/school/sports/work: No HPI HPI Comments History of Present Illness Details 69 y/o Male patient who presents to the walk in clinic with c/o Right Third Toe swelling and redness since yesterday. S/p Right third Hammer Toe Surgery 08/2024. He has lost Feeling to that Toe from surgery, so he is not sure if he injured it and did not feel anything. Reports Pain with ROM of Toes. [facility] Medical History (Updated 03/23/25 @ 14:44 by Anastasiya Josue NP) Hematoma of right third toe Diabetes GERD (gastroesophageal reflux disease) Barretts esophagus Patellofemoral arthritis of left knee Type 2 diabetes mellitus with diabetic polyneuropathy Subjective memory complaints Enlarged prostate Renal insufficiency Iron deficiency Hyperlipidemia HTN (hypertension) Hyperlipidemia LDL goal <100 Surgical History History of right inguinal hernia repair History of left knee surgery History of shoulder surgery History of tonsillectomy History of nasal surgery Hx of esophagogastroduodenoscopy Hx of colonoscopy History of foot surgery Family History Father Diabetes Mother Lung cancer Son No problems noted. Son No problems noted. Son No problems noted. Son No problems noted. Son No problems noted. Son No problems noted. Daughter No problems noted. Daughter No problems noted. Paternal Grandmother Diabetes Social History Household Members: Spouse Housing: House Alcohol intake: current Alcohol intake frequency: holidays/special occasions only Alcohol type: beer, wine, hard liquor and other Patient Tobacco Use Status: Never used Tobacco e-Cigarette/Vaping Use: Never Used Second Hand Smoke Exposure: No service: Yes Current occupational status: retired Cognitive needs: No Hearing needs: No Vision needs: Yes Review of Systems Const All systems reviewed & are unremarkable except as noted in HPI and below Physical Exam Vital Signs: Last Vital Signs Temp 98.6 F 03/23/25 14:21 Pulse 77 03/23/25 14:21 BP 120/68 03/23/25 14:21 Pulse Ox 99 03/23/25 14:21 Oxygen Delivery Method Room Air 03/23/25 14:21 BMI result Body Mass Index 25.9 Const General: no acute distress Nutritional Appearance: well nourished Orientation/consciousness: patient oriented x3 Neuro General: patient oriented x3, gait normal and moves all extremities Extrem Right lower extremity: foot Details: tenderness (Third Right Toe - redness TTP and swelling. Limited ROM due to pain. ), ecchymosis (Hematoma right third Toe - redness, TTP. ) and vascular exam Details: normal capillary refill Psych Speech and movement: Normal speech and movement present Assessment & Plan Assessment & Plan (1) Hematoma of right third toe: Code(s): S90.121A - Contusion of right lesser toe(s) without damage to nail, initial encounter Plan: Possibly an injury to the Toe - ordered Xray to r/o Fx. No infection; hematoma at the DIP, numbness and TTP Orders: Orders XR toe RT min 2V Today S90.121A - Contusion of right lesser toe(s) without damage to nail, initial encounter Coding Level of Care Code Est Pt Level 4 (28085) Diagnoses Hematoma of right third toe S90.121A Time Spent (min) 20
--- OUTSIDE RECORDS SUMMARY | 2025-03-23 15:27 | XMS_ITS | Patient Health Record ---
Author Organization [facility] Address [address] [place] [address] Care Team Providers Care Ski Patrol Officer Name Role Phone Giovanni Choe Primary Care Provider Unav ailable Maurizio Rivas Unavailable [phone] Allergies No Known Allergies Reason For Referral No Information Medications Medication SIG (Take, Route, Frequency, Duration) Notes Start Date End Date Status Cetirizine HCl 10 MG 1 tablet Orally Onc e a day; Duration: 30 day(s) 01/25/2024 Active Ferrous Sulfate 325 (65 Fe) MG 1 tablet Orally Three times a Week; Duration: 30 day(s) 01/25/2024 Active Ammonium Lactate 12 % 1 application Externally Twice a day; Duration: 30 days Active Trulicity 3 MG/0.5ML as directed Subcutaneous Active Fiber 625 MG 2 tablets as needed Orally Three times a day 01/25/2024 Active Lisinopril 5 MG 1 tablet Orally Once a day Active Multivitamin - 1 tablet Orally Once a day; Duration: 30 day(s) 01/25/2024 Active metFORMIN HCl 1000 MG 1 tablet with meal s Orally Twice a day Active Xhyboe-Pynxsgbco-VDV Complex - as directed Orally 01/25/2024 Active hydroCHLOROthiazide 25 MG 1 tablet in th e morning Orally Three times a Week Active Pentoxifylline ER 400 MG TAKE ONE TABLET BY MOUTH TWICE A DAY Oral; Duration: 90 Active Tamsulosin HCl 0.4 MG Oral; Duration: 90 Active Fish Oil 1000 MG 1 capsule Orally Onc e a day 12/25/2016 Unknown Vitamin E 450 MG (1000 UT) TAKE ONE CAPS ULE BY MOUTH EVERY DAY Oral; Duration: 90 Active Aspirin 81 MG 1 tablet Orally Once a day Unknown Omeprazole 20 MG TAKE ONE CAPSULE BY MOUTH EVERY DAY IN THE MORNING Oral; Duration: 90 Active Simvastatin 20 MG 1 tablet in the evening Orally Once a day Unknown Atorvastatin Calcium 20 MG TAKE 1 TABLET DAILY Oral; Duration: 90 Active glyBURIDE 1.25 MG 1 tablet with breakfast or the first main meal of the day Orally Once a day Unknown Sildenafil Citrate 25 MG TAKE 1 TABLET B Y MOUTH ONCE A DAY 30 MINUTES TO 4 HOURS BEFORE SEXUAL ACTIVITY NEEDED Oral; Duration: 14 Active Immunizations Vaccine Route Administration Date [...] W/U Status Risk Notes Problem Plantar wart (75735437) Plantar wart (B07.0) Active confirmed Problem Type II diabetes mellitus without complication (147880882) Type 2 diabetes mellitus without complication (E11.9) Active confirmed Plan Of Treatment Pending Test Test Name Order Date 79093-Whxg Destruction, -02/05/2024 Insurance Providers Payer Name Payer Address Payer Phone Subscriber Number Group Number Insured Name Patient Relationship to Insured Coverage Start Date Coverage End Date Medicare National Govt [employer] [address] [place] [address] [id number] Michael Martinez Self - patient is the insured for [employer] [address] [place] [address] [id number] Michael Martinez Self - patient is the [...]
--- OUTSIDE RECORDS SUMMARY | 2025-03-23 15:27 | XMS_ITS | Clinical Summary ---
Author Organization [facility] Address [address] [facility] [address] [place] [address] Phone Care Team Providers Care Bus And Trolley Inspecting Dispatcher Name Role Phone Giovanni Henriquez NP Primary Care Provider [phone] Allergies No known active allergies Medications atorvastatin [...] mouth 1 (one) time each day Active [place]-3 Fatty Acids (Fish Oil) 1000 MG capsule [...] Cancer Screening: Sigmoidoscopy 2005 Influenza Vaccine (#1) 2025 Hepatitis B Vaccine Aged Out No longe r eligible based on patient's age to complete this topic Insurance Medicare [facility] Medicare [facility] Care Teams Bus And Trolley Inspecting Dispatcher Relationship Specialty Start Date End Date Giovanni Henriquez NP [facility] [place] [address] PCP - General Nurse Practitioner 06/21/21
--- OUTSIDE RECORDS SUMMARY | 2025-03-23 15:27 | XMS_ITS | Patient Health Record ---
Author Organization [facility] Address [address] [place] [address] Care Team Providers Care Tow Bar Driver Name Role Phone RICK RENE Primary Care Provider Johnathan John Unavailable [phone] Allergies No Known Allergies Reason For Referral [...] Problem Status W/U Status Risk Notes Problem 9255096 Diverticulitis o f large intestine without perforation or abscess without bleeding (K57.32) Active confirmed Problem 958386196 Encounter for screening for malignant neoplasm of colon (Z12.11) Active confirmed Problem 46349358 Iron deficiency anemia, unspecified iron deficiency anemia type (D50.9) Active confirmed Problem 929967000 Reflux esophagit is (K21.0) Active confirmed Problem Méndez esophagus (451534790) 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 Problem 106530303 Colorectal cance r (C19) Active confirmed Problem 627845199 Méndez''s esoph lópez without dysplasia (K22.70) Active confirmed Problem 790243050 Gastroesophageal reflux disease with esophagitis without hemorrhage (K21.00) Active confirmed Plan Of Treatment Future Test Test Name Order Date UPPER GI ENDOSCOPY 06/25/2018 COLONOSCOPY 06/25/2018 UPPER GI ENDOSCOPY 11/13/2021 Next Appt Details Provider Name:Johnathan Pantoja Rahat , 05/24/2025 03:20:00 PM, [address] [place] [address], [address], [place], [address], Insurance Providers Payer Name Payer Address Payer Phone Subscriber Number Group Number Insured Name Patient Relationship to Insured Coverage Start Date Coverage End Date MEDICARE OF [place] [address] [place] [address] [id number] BENJAMIN KIDD Self - patient is the insured [employer] [address] [place] [address] [id number] BENJAMIN KIDD Self - patient is the insured Medical (General) History Medical History History ICD Code Screening colonoscopy 009--negative except for mild sigmoid diverticulosis and internal hemorrhoids Diverticulitis on CT scan 2015--treated with inpatient and outpatient antibiotics NIDDM Hyperlipidemia Denies SC,CVA,Lung disease,renal disease HTN Iron def anemia--EGD in [...]
== END 2025-03-23 14:54 | disposition home or self-care (01) ==
PROVIDERS: PCP Nurse Practitioner Family; Visit Provider Nurse Practitioner Family
DX: S90.121A Contusion of right lesser toe(s) without damage to nail, initial encounter (principal)

== ENCOUNTER 2025-03-23 14:12 | Outpatient (REF) | payer MEDICARE, OTHER, SELFPAY ==
--- NOTE | ~2025-03-23 | XR_ITS ---
EXAMINATION: XR TOES, RIGHT CLINICAL INFORMATION: S90.121A - Contusion of right lesser toe(s) without damage to nail, init... COMPARISON: None available. TECHNIQUE: AP view right foot. AP and lateral views third toe, right foot. . FINDINGS: Bony erosions along the articular surface of the proximal interphalangeal joint. No subcutaneous emphysema. No metallic or radiopaque foreign body. Metallic screws in the heads of the third and second metatarsals no fully included in the [id number]. There is osteolysis surrounding the screw of the third metatarsal head. No acute cortical disruption. XR/XR toe RT min 2V IMPRESSION: Concerning osteomyelitis in the correct clinical settings of the proximal interphalangeal joint of the third toe. Loosening surrounding the screw of the head third metatarsal. Electronically signed by: Hermilo Rush MD 03/23/2025 03:35 PM EDT
== END 2025-03-23 14:13 | disposition home or self-care (01) ==
LOC: HO.HMGCX 14:12
PROVIDERS: PCP Nurse Practitioner Family; Visit Provider Nurse Practitioner Family
DX: S90.121A Contusion of right lesser toe(s) without damage to nail, initial encounter (principal); X58.XXXA Exposure to other specified factors, initial encounter; Z98.890 Other specified postprocedural states
CPT/HCPCS: 73660; 99212

== ENCOUNTER → 2025-03-23 15:07 | Outpatient (BNV) | payer MEDICARE, OTHER, SELFPAY | PROVIDERS: PCP Nurse Practitioner Family; Visit Provider Radiology Diagnostic Radiology | DX: M89.571 Osteolysis, right ankle and foot (principal) | CPT/HCPCS: 73660 ==

== ENCOUNTER 2025-03-23 16:18 | Inpatient (IN) | payer MEDICARE, OTHER, SELFPAY ==
[2025-03-23 16:23] VITALS: BP 168/82; PULSE 89; RESP 20; TEMP 37; O2SAT 97; BMI 31.7
--- NOTE | 2025-03-23 16:27 | ED.GENADULT ---
HPI - General Adult General Chief complaint: General Medical Stated complaint: right toe infection sent from [facility] Time Seen by Provider: 03/23/25 19:03 Source: patient and old records reviewed Mode of arrival: ambulatory Limitations: no limitations History of Present Illness ED Provider: CHAO BOOKER narrative: 69 yo male with PMH of bronchitis, DM, CKD, HLD, neuropathy s/p R 3rd toe hammer toe surgery with [facility] in Aug 2024 he has had a recurrent pustule that develops on the dorsum of the foot. He notes for the past two days redness, warmth and swelling to the toe. He has no fevers. He denies known trauma. He went to urgent care today for xray and now it states osteo. He has not had this before. MD complaint: toe abnormality Onset (ago): day(s) (2) Location: left and lower extremity Radiation: non-radiation Severity: mild Relieving factors: none Exacerbating factors: movement Associated symptoms: rash Treatments prior to arrival: none Related Data Home Medications ?Medication ?Instructions ?Recorded ?Confirmed multivitamin 1 tab PO DAILY 06/06/20 11/07/24 omega-3 fatty acids 1,000 mg 1,000 mg PO DAILY 06/06/20 11/07/24 capsule (Fish Oil Concentrate) omeprazole 20 mg capsule,delayed 20 mg PO DAILY 06/06/20 11/07/24 release antiarthritic combination no.2 900 mg PO 03/06/21 11/07/24 mg tablet (glucosamine-chondroitin) cetirizine 10 mg tablet (All Day 10 mg PO DAILY PRN 02/12/23 11/07/24 Allergy (cetirizine)) sildenafil 50 mg tablet 50 mg PO DAILY PRN 03/23/24 11/07/24 ammonium lactate 12 % topical cream appl topical BID 03/26/24 11/07/24 Previous Rx's ?Medication ?Instructions ?Recorded blood sugar diagnostic (FreeStyle #300 ea 07/04/20 Lite Strips) lancets 28 gauge (FreeStyle #300 ea 07/04/20 Lancets) ferrous sulfate 325 mg (65 mg 325 mg PO DAILY 90 days #90 tabs 11/27/21 iron) tablet fluticasone propionate 50 1 spray intranasal BID #16 grams 03/26/24 mcg/actuation nasal spray,suspension lidocaine 5 % topical patch See Rx Instructions topical 09/09/24 .COMPLEX pain #30 ea dulaglutide 3 mg/0.5 mL 3 mg (0.5 mL) subcut QWEEK #6 mL 09/20/24 subcutaneous pen injector hydrochlorothiazide 25 mg tablet 25 mg PO DAILY #90 tabs 10/24/24 lisinopril 10 mg tablet 10 mg PO DAILY 90 days #90 tabs 10/24/24 metformin 1,000 mg tablet 1,000 mg PO BID #180 tabs 10/24/24 pentoxifylline 400 mg 400 mg PO BID 90 days #180 tabs 10/24/24 tablet,extended release tadalafil 5 mg tablet (Cialis) 5 mg PO DAILY #30 tabs 10/24/24 vitamin E (dl, acetate) 450 mg 450 mg PO DAILY 90 days #90 caps 11/14/24 (1,000 unit) capsule atorvastatin 20 mg tablet 20 mg PO DAILY #90 tabs 01/22/25 Allergies Allergy/AdvReac Type Severity Reaction Status Date / Time No Known Allergies (No Known Allergy Verified 03/23/25 16:24 Allergies*) Review of Systems Review of Systems: Constitutional : No Fever, No Chills ENT/Mouth : No sore throat, No Rhinorrhea Eyes: No Eye Pain, No Swelling, No Redness Cardiovascular : No Chest Pain, No SOB Respiratory : No Cough, No Sputum Gastrointestinal : No Nausea, No Vomiting, No Diarrhea, No abdominal Pain Genitourinary : No Dysuria, No Hematuria Musculoskeletal : No joint pain, No Myalgias, No Joint Swelling Skin : No Skin Lesions, positive skin rash Neuro : No Weakness, No Numbness, No Headache All other systems reviewed and are negative [facility] Past Medical History Attestation statement: The following information was validated with the patient. Source: old records reviewed Medical History Hematoma of right third toe Diabetes GERD (gastroesophageal reflux disease) Barretts esophagus Patellofemoral arthritis of left knee Type 2 diabetes mellitus with diabetic polyneuropathy Subjective memory complaints Enlarged prostate Renal insufficiency Iron deficiency Hyperlipidemia HTN (hypertension) Hyperlipidemia LDL goal <100 Surgical History History of right inguinal hernia repair History of left knee surgery History of shoulder surgery History of tonsillectomy History of nasal surgery Hx of esophagogastroduodenoscopy Hx of colonoscopy History of foot surgery Family History Family History Father Diabetes Mother Lung cancer Son No problems noted. Son No problems noted. Son No problems noted. Son No problems noted. Son No problems noted. Son No problems noted. Daughter No problems noted. Daughter No problems noted. Paternal Grandmother Diabetes Social History Social History Household Members: Spouse Housing: House Alcohol intake: current Alcohol intake frequency: holidays/special occasions only Alcohol type: beer, wine, hard liquor and other Patient Tobacco Use Status: Never used Tobacco e-Cigarette/Vaping Use: Never Used Second Hand Smoke Exposure: No Advance Directives: No Advance Directives Information Provided: Yes service: Yes Current occupational status: retired Cognitive needs: No Hearing needs: No Vision needs: Yes Physical Exam ED Vital Signs: Vital Signs - 24 hr 03/23/25 16:23 03/23/25 18:40 Temperature 98.6 F 97.8 F Pulse Rate 89 64 Respiratory Rate 20 15 Blood Pressure 168/82 H 154/72 H Pulse Oximetry 97 99 Oxygen Delivery Method Room Air Room Air BMI result Body Mass Index 31.7 Appearance: Alert. Oriented X3. No acute distress. Eyes: Pupils equal, round and reactive to light. ENT: Pharynx normal. Neck: Normal inspection. Neck supple. CVS: Normal heart rate and rhythm. Pulses normal. Respiratory: No respiratory distress. Breath sounds normal. Abdomen: Soft and nontender. Skin: Skin warm and dry. Normal skin color. Normal skin turgor. Extremities: No lower extremity edema. R 3rd toe has ecchymosis on prox nail fold but there is redness, swelling to the digit and warmth. I see healed but elevated and irritated scar where his pustule develops. He does have some pain to palpation Neuro: Oriented X 3. No motor deficit. No sensory deficit. Course Course Course Narrative: This is a rapid medical exam performed by Harvey Chapman NP: Additional HPI, ROS, PE not included below will be deferred to primary provider. Patient is a 69-year-old male with pmhx of DM presenting to the ED from [place] [facility] for osteomyelitis on xray. Had surgery for hammertoe in Aug. States since that time, has intermittently had pustule to same toe. Plan: labs including cxs Reevaluation(s) Reevaluation #1: suspect lactic acidosis due to metformin and not infection or severe sepsis Medical Decision Making Medical Decision Making [facility] Narrative: 69 yo male with PMH of bronchitis, DM, CKD, HLD, neuropathy s/p R 3rd toe hammer toe surgery with [facility] in Aug 2024 here with abnormal appearing toe at this time will obtain labs and start on IV abx given the appearance and xray should be seen by ID and have further bone studies. Planned admit Differential Diagnosis Differential Diagnoses: The differential diagnosis associated with the presentation includes cellulitis, osteo Admission/Observation Consideration of admission/observation: Escalation of care including admission/observation considered given appearance and xray will admit to hospitalist for IV abx and ID Consult Healthcare Provider Management of the patient was discussed with: Hospitalist (will admit) Lab Data [facility] Lab Attestation statement: I reviewed the patient's lab results. 03/23/25 16:51 03/23/25 16:51 Labs: Lab Results 03/23/25 03/23/25 Range/Units 16:51 19:43 WBC 8.0 (4.8-10.8) X10*3/uL RBC 5.15 (4.60-5.80) X10*6/uL Hgb 13.7 L (14.0-18.0) g/dl Hct 40.1 L (42.0-52.0) % MCV 77.9 L (80.0-98.0) fL MCH 26.6 L (27.0-33.0) pg MCHC 34.2 (31.0-36.0) g/dl RDW 15.2 (11.0-16.0) % Plt Count 285 (160-400) X10*3/uL MPV 8.7 L (9.4-12.4) fL Immature Gran % (Auto) 0.3 (0.0-0.4) % Neut % (Auto) 70.3 (45-73) % Lymph % (Auto) 19.8 L (20-40) % [place] % (Auto) 6.4 (2-11) % Eos % (Auto) 2.6 (0-4) % Baso % (Auto) 0.6 (0-2) % Lymph # (Auto) 1.6 (1.2-4.9) X10*3/uL [place] # (Auto) 0.5 (0.1-1.2) X10*3/uL Eos # (Auto) 0.2 (0.0-0.4) X10*3/uL Baso # (Auto) 0.1 (0.0-0.2) X10*3/uL Abs Immat Gran (auto) 0.02 (0.00-0.03) X10*3/uL Absolute Neuts (auto) 5.6 (2.0-8.3) x10*3/uL Absolute Nucleated RBC 0.000 (0.0-0.012) X10*3/uL Nucleated RBC % (auto) 0.0 (0.0-0.2) /100WBC ESR 2 (0-15) MM/HR Sodium 140 (135-145) mmol/L Potassium 4.1 (3.3-5.1) mmol/L Chloride 106 (96-108) mmol/L Carbon Dioxide 22 (22-29) mmol/L Anion Gap 16 (12-20) BUN 35 H (9-16) mg/dL Creatinine 1.25 (0.5-1.4) mg/dL Estim Creat Clear Calc 59.1 Estimated GFR 57 Random Glucose 173 H (60-115) mg/dL Lactic Acid 2.4 H* (0.5-2.0) mmol/L Lactic Acid F/U @ 2Hr 0.9 (0.5-2.0) mmol/L Calcium 9.7 (8.4-10.2) mg/dL Total Bilirubin 0.6 (0.0-1.0) mg/dL AST 29 (5-37) U/L ALT 32 (0-40) U/L Alkaline Phosphatase 70 (39-117) U/L C-Reactive Protein 0.11 (< or = 0.50) mg/dL Total Protein 6.9 (6.5-8.0) g/dL Albumin 4.7 (3.5-5.0) g/dL Independent Interpretation I performed an independent interpretation of an: Plain X-Ray (oste of toe at [facility]) Radiology Impression Discussion of test interpretation with radiology: I have reviewed the radiologist's reading. External Record Review External record reviewed: Outpatient record Discharge Plan Discharge Clinical Impression: Osteomyelitis Qualifiers: Osteomyelitis type: unspecified type Osteomyelitis location: foot Laterality: right Qualified Code(s): M86.9 - Osteomyelitis, unspecified Cellulitis Qualifiers: Site of cellulitis: extremity Site of cellulitis of extremity: lower extremity Laterality: right Qualified Code(s): L03.115 - Cellulitis of right lower limb Patient Disposition: Admitted As Inpatient Print Language: Tuvaluan
[2025-03-23 16:58] LABS: MANUAL DIFF FLAG NO
[2025-03-23 17:16] LABS: Hematocrit 40.1 % (42.0-52.0); Hemoglobin 13.7 g/dl (14.0-18.0); Imm Gran Abs Auto 0.02 X10*3/uL (0.00-0.03); Imm Gran Pct Auto 0.3 % (0.0-0.4); Lymphocytes Absolute Auto 1.6 X10*3/uL (1.2-4.9); Mean Corpuscular HGB Conc 34.2 g/dl (31.0-36.0); Mean Corpuscular Hemoglobin 26.6 pg (27.0-33.0); Mean Corpuscular Volume 77.9 fL (80.0-98.0); NRBC Abs Auto 0.000 X10*3/uL (0.0-0.012); NRBC Pct Auto 0.0 /100WBC (0.0-0.2); Platelet Count 285 X10*3/uL (160-400); Red Blood Count 5.15 X10*6/uL (4.60-5.80); White Blood Count 8.0 X10*3/uL (4.8-10.8)
[2025-03-23 17:21] LABS: Alanine Aminotransferase 32 U/L (0-40); Albumin Level 4.7 g/dL (3.5-5.0); Alkaline Phosphatase 70 U/L (39-117); Anion Gap 16 (12-20); Aspartate Amino Transferase 29 U/L (5-37); Blood Urea Nitrogen 35 mg/dL (9-16); Calcium 9.7 mg/dL (8.4-10.2); Carbon Dioxide 22 mmol/L (22-29); Chloride 106 mmol/L (96-108); Creatinine Clr Calc Pharmacy 59.1; Estimated Glomerular Filt Rate 57; Potassium 4.1 mmol/L (3.3-5.1); Sodium 140 mmol/L (135-145); Total Protein 6.9 g/dL (6.5-8.0)
[2025-03-23 18:40] VITALS: BP 154/72; PULSE 64; RESP 15; TEMP 36.6; O2SAT 99
[2025-03-23 18:58] LABS: Reflex Lactate? Lactic Acid Added
[2025-03-23 20:09] LABS: ~Lactic Acid-LAB USE ONLY 0.9 mmol/L (0.5-2.0)
[2025-03-23] MEDS: Lactated Ringers 1,000 ML 999 ML IV (20:55)
[2025-03-23 21:00] VITALS: BP 152/82; PULSE 72; RESP 16; O2SAT 97
--- NOTE | 2025-03-23 21:18 | PM.IMHP ---
History of Present Illness Date of Service: 03/23/25 Attending physician on admission: Keron Andrea Chief Complaint: R foot pain Pt is a 69 yo male with PMH NIDDM, Hammer toes B with repair, Ganglion cyst left wrist, CKD, BPH, Peyronie's, ED, Bronchitis, HLD, HTN, GERD, Neuropathy, EMEKA and Trigger finger with repair presents to ED after learning from Urgent care that xray of R foot notes OM. Pt went to due to recurring pustule, redness, pain and warmth of R foot. Pt denies chest pain, SOB, N/V, fever or night sweats. Pt is s/p repair of R foot for hammer toes with [facility] Aug 2024. 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 Pt has not had OM of the affected foot prior. Pt's last follow up with [facility] was 02/10/25 and xray done that day was negative for acute infection. XRAY done through notes concerning osteomyelitis in the correct clinical settings of the proximal interphalangeal joint of the third toe.Loosening surrounding the screw of the head third metatarsal. Pt started on Zosyn in he ED and received IVF for elevated LA now normalized. Pt has no leukocytosis and vitals are stable, Glucose 173 mg/dL. Pt has not required narcotics for pain control. Pt does not meet criteria for sepsis on admission. Review of Systems Review of Systems: Pt denies chest pain, SOB, N/V, abd pain, diarrhea, constipation. Pt reports mild pain in R foot, has good ROM. Pt denies any recent injury to affected foot. [facility] Medical History (Updated 03/23/25 @ 23:58 by AMANDA Gillespie-LOURDES) Erectile dysfunction Peyronie's disease Hematoma of right third toe Diabetes GERD (gastroesophageal reflux disease) Barretts esophagus Patellofemoral arthritis of left knee Type 2 diabetes mellitus with diabetic polyneuropathy Subjective memory complaints Enlarged prostate Renal insufficiency Iron deficiency Hyperlipidemia HTN (hypertension) Hyperlipidemia LDL goal <100 Cognitive capacity: A/O X3 Functional capacity: independent ambulation Family History Father Diabetes Mother Lung cancer Son No problems noted. Son No problems noted. Son No problems noted. Son No problems noted. Son No problems noted. Son No problems noted. Daughter No problems noted. Daughter No problems noted. Paternal Grandmother Diabetes Surgical History History of right inguinal hernia repair History of left knee surgery History of shoulder surgery History of tonsillectomy History of nasal surgery Hx of esophagogastroduodenoscopy Hx of colonoscopy History of foot surgery Social History Household Members: Spouse Housing: House Alcohol intake: never Patient Tobacco Use Status: Never used Tobacco Smoked in Last 30 Days: No e-Cigarette/Vaping Use: Never Used Second Hand Smoke Exposure: No Use of substances other than those prescribed or required for medical reasons: No Any prior treatment program specific to substance use: No Advance Directives: No Advance Directives Information Provided: Yes service: Yes Current occupational status: retired Cognitive needs: No Hearing needs: No Vision needs: Yes Ebola Risk: Travel/Contact With Anyone From Affected Area/s: No Has Patient Experienced Ebola Symptoms: No Meds Allergies Allergy/AdvReac Type Severity Reaction Status Date / Time No Known Allergies (No Known Allergy Verified 03/23/25 16:24 Allergies*) Active Medications: Current Medications Acetaminophen (Acetaminophen 325 Mg Tablet) 650 mg PO Q6H PRN PRN Reason: Pain, Mild 1-3,fever,headache Albuterol/Ipratropium (Albuterol/Iprat 2.5/0.5mg 3 Ml Ampul.Neb) 3 ml INHALE Q4H PRN PRN Reason: Shortness of Breath/Wheezing Calcium Carbonate (Calcium Carbonate 750 Mg Tab.Chew) 750 mg PO Q4H PRN PRN Reason: Heartburn Enoxaparin Sodium (Enoxaparin Sodium 40 Mg/0.4 Ml Syringe) 40 mg SUBCUT Q24H LOWELL Lactated Ringer's (Lr) 1,000 mls @ 999 mls/hr IV .Q1H1M ONE Stop: 03/23/25 21:46 Last Admin: 03/23/25 20:55 Dose: 999 mls/hr Magnesium Hydroxide (Milk Of Magnesia 30 Ml Oral.Susp) 30 ml PO DAILY PRN PRN Reason: Constipation Melatonin (Melatonin 3 Mg Tablet) 6 mg PO BEDTIME PRN PRN Reason: Insomnia Ondansetron HCl (Ondansetron Hcl 4 Mg/2 Ml Vial) 4 mg IVPUSH Q8H PRN PRN Reason: Nausea and Vomiting Polyethylene Glycol (Polyethylene Glycol 3350 17 Gm Powd.Pack) 17 gm PO DAILY PRN PRN Reason: Constipation Senna (Sennosides 8.6 Mg Tablet) 17.2 mg PO BEDTIME LOWELL Sodium Chloride (0.9 % Sodium Chloride Flush 3 Ml Syringe) 3 ml IVFLUSH QSHIFT LOWELL Home Medications ?Medication ?Instructions ?Recorded ?Confirmed ?Last Taken ?Type multivitamin 1 tab PO BEDTIME 06/06/20 03/23/25 03/22/25 History omega-3 fatty acids 1,000 mg 1,000 mg PO DAILY 06/06/20 03/23/25 03/23/25 History capsule (Fish Oil Concentrate) omeprazole 20 mg capsule,delayed 20 mg PO DAILY@0630 06/06/20 03/23/25 03/23/25 History release cetirizine 10 mg tablet (All Day 10 mg PO DAILY PRN Allergy Symptoms 02/12/23 03/23/25 Unknown History Allergy (cetirizine)) atorvastatin 20 mg tablet 20 mg PO BEDTIME 03/23/25 03/23/25 03/23/25 History dulaglutide 3 mg/0.5 mL 3 mg subcut COLLINS 03/23/25 03/23/25 03/19/25 History subcutaneous pen injector (Trulicity) ferrous sulfate 325 mg (65 mg 325 mg PO BEDTIME 03/23/25 03/23/25 03/22/25 History iron) tablet fluticasone propionate 50 1 spray intranasal BID PRN Allergy 03/23/25 03/23/25 Unknown History mcg/actuation nasal Symptoms spray,suspension lisinopril 10 mg tablet 10 mg PO BEDTIME 03/23/25 03/23/25 03/22/25 History tadalafil 5 mg tablet (Cialis) 5 mg PO DAILY PRN Sexual Activity 03/23/25 03/23/25 03/23/25 History Physical Exam Vital Signs and Narrative: Vital Signs: Last Vital Signs Temp 97.8 F 03/23/25 18:40 Pulse 72 03/23/25 21:00 Resp 16 03/23/25 21:00 BP 152/82 H 03/23/25 21:00 Pulse Ox 97 03/23/25 21:00 O2 Del Method Room Air 03/23/25 21:00 BMI result Body Mass Index 31.7 Alert and orientated X3, able to give good history. Neuro: CN II-X11 intact, no deficits, visual acuity intact EYES: PERRLA, EOM intact, sclerae nonicteric, conjunctiva pink ENT: hearing intact, no issues with swallowing, uvula midline, lips moist, nares patent no epistaxis Cardiac: S1 S2 RRR, no murmur, no JVD, no edema in Lower ext Pulmonary: lungs clear to auscultation B Abdominal: BS active in all 4 quadrants, no guarding, no tenderness MSK: strength 5/5 upper and lower extremities : no CVA tenderness no bladder distension Extremities: no edema in lower extremities, PT and DP pulses palpable +2, 3rd toe R foot ecchymotic, slightly warm, no obvious pustule but redness travels to below mid foot Psych: mood stable, judgement and insight good Skin: intact Results Labs 03/23/25 16:51 03/23/25 16:51 Labs: Laboratory Results - last 24 hr 03/23/25 03/23/25 16:51 19:43 MCV 77.9 L MCH 26.6 L MCHC 34.2 RDW 15.2 Plt Count 285 MPV 8.7 L Immature Gran % (Auto) 0.3 Neut % (Auto) 70.3 Lymph % (Auto) 19.8 L [place] % (Auto) 6.4 Eos % (Auto) 2.6 Baso % (Auto) 0.6 Lymph # (Auto) 1.6 [place] # (Auto) 0.5 Eos # (Auto) 0.2 Baso # (Auto) 0.1 Abs Immat Gran (auto) 0.02 Absolute Neuts (auto) 5.6 Absolute Nucleated RBC 0.000 Nucleated RBC % (auto) 0.0 ESR 2 Anion Gap 16 Estim Creat Clear Calc 59.1 Estimated GFR 57 Random Glucose 173 H Lactic Acid 2.4 H* Lactic Acid F/U @ 2Hr 0.9 Calcium 9.7 Total Bilirubin 0.6 AST 29 ALT 32 Alkaline Phosphatase 70 C-Reactive Protein 0.11 Total Protein 6.9 Albumin 4.7 Imaging Radiologist's Impressions: TOE XRAY IMPRESSION: Concerning osteomyelitis in the correct clinical settings of the proximal interphalangeal joint of the third toe. Loosening surrounding the screw of the head third metatarsal. Assessment and Plan (1) Osteomyelitis: Qualifiers: Laterality: right Osteomyelitis location: foot Osteomyelitis type: unspecified type Qualified Code(s): M86.9 - Osteomyelitis, unspecified Status: Acute Plan Pt is a 69 yo male with PMH NIDDM, Hammer toes B with repair, Ganglion cyst left wrist, CKD, BPH, Peyronie's, ED, Bronchitis, HLD, HTN, GERD, Neuropathy, EMEKA and Trigger finger with repair presents to ED after learning from Urgent care that xray of R foot notes OM and loose screw. Pt had hammer toe repair with [facility] 08/2024 and had an injury nonspecific for R foot September 2024. Last follow up with [facility] 02/10/2025 and xray was negative for infection, OM or hardware issues. OM via Xray R foot s/p hammer toe repair 08/2024 with [facility] Pt started on IV Zosyn and Vanco Unable to culture foot Unclear if pt can have MRI of R foot due to presence of hardware in R foot ID consulted IVF for elevated LA, now normalized BC pending Orthopedics consulted for overview noting loose hardware Hold DVT prophylaxis in case procedure or intervention needed NPO after midnight HTN Continue lisinopril and HCTZ Low Na diet NIDDM Pt normally on Trulicity (WED) and metformin SSI only for now Diabetic diet BPH Pt is not on Tamsulosin Follows with urology as an outpatient HLD Continue statin LFTs stable EMEKA Continue ferrous sulfate GERD Continue omeperazole Avoid food triggers DVT prophylaxis: held in case procedure needed MED REC COMPLETED FULL CODE Quality Stroke Does the patient have a stroke diagnosis?: No Reason for No Anti-thrombotic by Day Two: Contraindicated VTE Prior VTE?: No VTE Risk Level:: Medical - moderate - high VTE Device Contraindication: N/A - Device Ordered VTE Drug Contraindication: N/A - Med Ordered
--- NOTE | 2025-03-23 22:14 | PHA.MEDREC ---
Addendum entered by Slick Gill PharmD 03/23/25 22:16: reviewed Original Note: Pharmacy Consult ? Medication Reconciliation Pharmacy has completed the medication reconciliation. Patient was able to confirm all his medications. Patient is no longer taking Ammonium Lactate 12%. Patient confirmed Trulicity 3 mg every Thursday, last dose 03/19/25. Patient had all hi morning medications today.
[2025-03-24 00:40] VITALS: BMI 31.8
[2025-03-24 01:01] VITALS: BP 132/66; PULSE 71; RESP 17; TEMP 36; O2SAT 95
[2025-03-24] MEDS: vancomycin HCL 1,000 MG, vancomycin HCL 750 MG in 0.9 % Sodium Chloride 500 ML 267.5 MG IV (01:09)
[2025-03-24] MEDS: 0.9 % Sodium Chloride Flush 3 ML SYRINGE IVFLUSH ×3 (01:11→15:46)
[2025-03-24 03:22] VITALS: BP 141/65; PULSE 65; RESP 17; TEMP 36; O2SAT 95
[2025-03-24 06:00] VITALS: BMI 31.7
--- NOTE | 2025-03-24 06:49 | PHA.PROG ---
Admission Date/Time: March 23, 2025 20:52 Indication: BONE AND JOINT Weight in k.2 kg Adjusted body weight in Kg: [place] body weight in Kg: Obesity Dosing Indication % IBW: Serum Creatinine - Last 168 Hours 03/23/25 16:51 Creatinine 1.25 Estimated CrCl and GFR - Last 168 Hours 03/23/25 16:51 Estim Creat Clear Calc 59.1 Estimated GFR 57 Vancomycin Loading Dose: 1750 MG Current Vancomycin Dosing Regimen: 750 MG Q12H Vancomycin Monitoring using AUC goal of 400 - 600 range with trough as surrogate marker: [id number] TROUGH=17.3 Date and Time for next Vancomycin Level to be drawn: 03/25/25 @1100 Pharmacist Comments on Vancomycin Plan: Vancomycin dosing will take advantage of [employer] as a clinical decision support tool that uses Bayesian modeling to calculate individual patient's pharmacokinetic parameters and forecast the patient's drug concentration time course with the target goal AUC 24 range of 400 - 600 mg/L/hr.
[2025-03-24 06:56] LABS: MANUAL DIFF FLAG NO
[2025-03-24 06:58] LABS: Hematocrit 39.2 % (42.0-52.0); Hemoglobin 13.2 g/dl (14.0-18.0); Imm Gran Abs Auto 0.02 X10*3/uL (0.00-0.03); Imm Gran Pct Auto 0.3 % (0.0-0.4); Lymphocytes Absolute Auto 1.8 X10*3/uL (1.2-4.9); Mean Corpuscular HGB Conc 33.7 g/dl (31.0-36.0); Mean Corpuscular Hemoglobin 26.6 pg (27.0-33.0); Mean Corpuscular Volume 78.9 fL (80.0-98.0); NRBC Abs Auto 0.000 X10*3/uL (0.0-0.012); NRBC Pct Auto 0.0 /100WBC (0.0-0.2); Platelet Count 274 X10*3/uL (160-400); Red Blood Count 4.97 X10*6/uL (4.60-5.80); White Blood Count 5.9 X10*3/uL (4.8-10.8)
[2025-03-24 07:13] LABS: Anion Gap 12 (12-20); Blood Urea Nitrogen 30 mg/dL (9-16); Calcium 8.8 mg/dL (8.4-10.2); Carbon Dioxide 26 mmol/L (22-29); Chloride 108 mmol/L (96-108); Creatinine Clr Calc Pharmacy 56.4; Estimated Glomerular Filt Rate 54; Potassium 4.2 mmol/L (3.3-5.1); Sodium 142 mmol/L (135-145)
[2025-03-24 07:19] VITALS: BP 123/69; PULSE 63; RESP 16; TEMP 36.7; O2SAT 96
[2025-03-24 07:26] LABS: Glucose, Whole Blood 131 mg/dL (60-115)
--- NOTE | 2025-03-24 07:52 | PM.CNOR ---
History of Present Illness HPI Consult date: 03/24/25 Chief complaint: osteomyelitis Narrative: Patient is a 69-year-old male with past medical history significant for diabetes and chronic kidney disease who is status post right 2nd and 3rd toe hammertoe repairs at [facility] in August of 2024 who presents for swelling and discoloration of the right 3rd toe Patient reports that he has had a recurrent ?pustule? that has formed at the surgical site 3-4 times since surgery, The patient reports that he noticed some purple discoloration of the distal part of this toe for the last 2 days Of note, the patient does report that the nerve to this toe was cut during surgery, and therefore sensation is very limited here to begin with. Patient reports that he was evaluated at the urgent care prior to coming to the emergency department where x-rays revealed findings concerning for osteomyelitis and loosening of the indwelling hardware of the 3rd metatarsal head Patient reports minimal discomfort in the toe No other acute complaints or concerns at this time PMF Past Medical History Medical History (Updated 03/24/25 @ 08:06 by KATHY Lee) Erectile dysfunction Peyronie's disease Hematoma of right third toe Diabetes GERD (gastroesophageal reflux disease) Barretts esophagus Patellofemoral arthritis of left knee Type 2 diabetes mellitus with diabetic polyneuropathy Subjective memory complaints Enlarged prostate Renal insufficiency Iron deficiency Hyperlipidemia HTN (hypertension) Hyperlipidemia LDL goal <100 Family History Family History Father Diabetes Mother Lung cancer Son No problems noted. Son No problems noted. Son No problems noted. Son No problems noted. Son No problems noted. Son No problems noted. Daughter No problems noted. Daughter No problems noted. Paternal Grandmother Diabetes Surgical History Surgical History History of right inguinal hernia repair History of left knee surgery History of shoulder surgery History of tonsillectomy History of nasal surgery Hx of esophagogastroduodenoscopy Hx of colonoscopy History of foot surgery Social History Social History Household Members: Spouse Housing: House Do you presently have visiting nurse or other home services: No Alcohol intake: never Patient Tobacco Use Status: Never used Tobacco Smoked in Last 30 Days: No e-Cigarette/Vaping Use: Never Used Second Hand Smoke Exposure: No Use of substances other than those prescribed or required for medical reasons: No Any prior treatment program specific to substance use: No Have you been hit, kicked, punched, or otherwise hurt by someone within the past year? If so, by whom?: No Do you feel safe in your current relationship?: Yes Is there a partner from a previous relationship who is making you feel unsafe now?: No Are you made to feel afraid or neglected: No Advance Directives: No Advance Directives Information Provided: Yes Do you have a plan to hurt others: No Plan Recently lost weight without trying: No Nutrition Risks: No Nutritional Risk Poor oral hygiene: No service: Yes Current occupational status: retired Cognitive needs: No Hearing needs: No Vision needs: Yes Travel History Ebola Risk: Travel/Contact With Anyone From Affected Area/s: No Has Patient Experienced Ebola Symptoms: No Meds Allergies Allergy/AdvReac Type Severity Reaction Status Date / Time No Known Allergies (No Known Allergy Verified 03/23/25 16:24 Allergies*) Active Medications: Current Medications Acetaminophen (Acetaminophen 325 Mg Tablet) 650 mg PO Q6H PRN PRN Reason: Pain, Mild 1-3,fever,headache Albuterol/Ipratropium (Albuterol/Iprat 2.5/0.5mg 3 Ml Ampul.Neb) 3 ml INHALE Q4H PRN PRN Reason: Shortness of Breath/Wheezing Amlodipine Besylate (Amlodipine Besylate 2.5 Mg Tablet) 2.5 mg PO DAILY [facility]; Protocol Atorvastatin Calcium (Atorvastatin Calcium 20 Mg Tablet) 20 mg PO BEDTIME [facility] Calcium Carbonate (Calcium Carbonate 750 Mg Tab.Chew) 750 mg PO Q4H PRN PRN Reason: Heartburn Dextrose (Dextrose 50 % 25 Gm/50 Ml Syringe) 25 gm IVPUSH Q15M PRN; Protocol PRN Reason: per Hypoglycemia Standing Ord. Enoxaparin Sodium (Enoxaparin Sodium 40 Mg/0.4 Ml Syringe) 40 mg SUBCUT Q24H [facility] On Hold: 03/24/25 00:10 Last Admin: 03/23/25 23:32 Dose: 40 mg Ferrous Sulfate (Ferrous Sulfate 324 Mg Tablet.Dr) 324 mg PO BEDTIME [facility] Fluticasone Propionate (Fluticasone Propionate Nasal 16 Gm [place]) 1 spray NOSTRIL-B BID PRN PRN Reason: Allergy Symptoms Glucose (Glucose Gel 15 Gm Gel..Gram.) 15 gm PO Q15M PRN; Protocol PRN Reason: per Hypoglycemia Standing Ord. Vancomycin HCl 750 mg/ Sodium (Chloride) 265 mls @ 265 mls/hr IV Q12H [facility] Insulin Human Lispro (Insulin Lispro 100 Unit/Ml 3 Ml Vial) 0 unit SUBCUT QIDACHS [facility]; Protocol Last Admin: 03/24/25 07:37 Dose: Not Given Magnesium Hydroxide (Milk Of Magnesia 30 Ml Oral.Susp) 30 ml PO DAILY PRN PRN Reason: Constipation Melatonin (Melatonin 3 Mg Tablet) 6 mg PO BEDTIME PRN PRN Reason: Insomnia Multivitamins/Vitamin C (Multivitamin Tablet) 1 tab PO BEDTIME [facility] Non-Formulary Medication (Dulaglutide [Trulicity]) 3 mg SUBCUT COLLINS [facility] Omeprazole (Omeprazole 20 Mg Capsule.Dr) 20 mg PO DAILY@0630 [facility] Last Admin: 03/24/25 06:18 Dose: 20 mg Ondansetron HCl (Ondansetron Hcl 4 Mg/2 Ml Vial) 4 mg IVPUSH Q8H PRN PRN Reason: Nausea and Vomiting Pentoxifylline (Pentoxifylline Er 400 Mg Tablet.Er) 400 mg PO BID [facility] Pharmacy Consult (Consult Rx Vancomycin Dosing) 1 each MISCELLANE DAILY PRN PRN Reason: Consult order Polyethylene Glycol (Polyethylene Glycol 3350 17 Gm Powd.Pack) 17 gm PO DAILY PRN PRN Reason: Constipation Senna (Sennosides 8.6 Mg Tablet) 17.2 mg PO BEDTIME [facility] Sodium Chloride (0.9 % Sodium Chloride Flush 3 Ml Syringe) 3 ml IVFLUSH QSHIFT [facility] Last Admin: 03/24/25 01:11 Dose: 3 ml Vitamin E (Vitamin E (Dl,Tocopheryl Acet) 180 Mg (400 Unit) Capsule) 360 mg PO DAILY [facility] Home Medications ?Medication ?Instructions ?Recorded ?Confirmed ?Last Taken ?Type multivitamin 1 tab PO BEDTIME 06/06/20 03/23/25 03/22/25 History omega-3 fatty acids 1,000 mg 1,000 mg PO DAILY 06/06/20 03/23/25 03/23/25 History capsule (Fish Oil Concentrate) omeprazole 20 mg capsule,delayed 20 mg PO DAILY@0630 06/06/20 03/23/25 03/23/25 History release cetirizine 10 mg tablet (All Day 10 mg PO DAILY PRN Allergy Symptoms 02/12/23 03/23/25 Unknown History Allergy (cetirizine)) atorvastatin 20 mg tablet 20 mg PO BEDTIME 03/23/25 03/23/25 03/23/25 History dulaglutide 3 mg/0.5 mL 3 mg subcut [facility] 03/23/25 03/23/25 03/19/25 History subcutaneous pen injector (Trulicity) ferrous sulfate 325 mg (65 mg 325 mg PO BEDTIME 03/23/25 03/23/25 03/22/25 History iron) tablet fluticasone propionate 50 1 spray intranasal BID PRN Allergy 03/23/25 03/23/25 Unknown History mcg/actuation nasal Symptoms spray,suspension lisinopril 10 mg tablet 10 mg PO BEDTIME 03/23/25 03/23/25 03/22/25 History tadalafil 5 mg tablet (Cialis) 5 mg PO DAILY PRN Sexual Activity 03/23/25 03/23/25 03/23/25 History Physical Exam Vital Signs: Vital Signs: Last Vital Signs Temp 98.1 F 03/24/25 07:19 Pulse 63 03/24/25 07:19 Resp 16 03/24/25 07:19 BP 123/69 03/24/25 07:19 Pulse Ox 96 03/24/25 07:19 O2 Del Method Room Air 03/24/25 07:19 BMI result Body Mass Index 31.7 Extrem: Other: Patient's right 3rd toe edematous and ecchymotic to inspection, particularly in the distal aspect There is also a small pustule that appears to have formed over the 3rd metatarsal head that has a proximally 0.1 cm in diameter No lacerations, abrasions, open areas Patient reports minimal tenderness to palpation of the 3rd metatarsal head or 3rd toe No pain with axial loading of the joints of the right 3rd toe Distal sensation intact Capillary refill brisk Results Labs 03/24/25 05:40 03/24/25 05:41 Labs: Abnormal lab results 03/23/25 03/24/25 03/24/25 Range/Units 16:51 05:40 05:41 Hgb 13.7 L 13.2 L (14.0-18.0) g/dl Hct 40.1 L 39.2 L (42.0-52.0) % MCV 77.9 L 78.9 L (80.0-98.0) fL MCH 26.6 L 26.6 L (27.0-33.0) pg MPV 8.7 L 9.0 L (9.4-12.4) fL Lymph % (Auto) 19.8 L (20-40) % Eos % (Auto) 4.7 H (0-4) % BUN 35 H 30 H (9-16) mg/dL POC Glucose (60-115) mg/dL Random Glucose 173 H (60-115) mg/dL Lactic Acid 2.4 H* (0.5-2.0) mmol/L 03/24/25 Range/Units 07:22 Hgb (14.0-18.0) g/dl Hct (42.0-52.0) % MCV (80.0-98.0) fL MCH (27.0-33.0) pg MPV (9.4-12.4) fL Lymph % (Auto) (20-40) % Eos % (Auto) (0-4) % BUN (9-16) mg/dL POC Glucose 131 H (60-115) mg/dL Random Glucose (60-115) mg/dL Lactic Acid (0.5-2.0) mmol/L H & H 03/23/25 03/24/25 Range/Units 16:51 05:40 Hgb 13.7 L 13.2 L (14.0-18.0) g/dl Hct 40.1 L 39.2 L (42.0-52.0) % All other labs normal. Diagnostic results Ankle/Foot x-ray: report reviewed and image reviewed Assessment and Plan (1) Diabetes: Status: Acute (2) Type 2 diabetes mellitus with diabetic polyneuropathy: Status: Acute (3) CKD (chronic kidney disease) stage 3, GFR 30-59 ml/min: Qualifiers: Chronic kidney disease stage 3 subtype: stage 3a (GFR 45-59) Qualified Code(s): N18.31 - Chronic kidney disease, stage 3a Status: Acute (4) Osteomyelitis: Qualifiers: Laterality: right Osteomyelitis location: foot Osteomyelitis type: unspecified type Qualified Code(s): M86.9 - Osteomyelitis, unspecified Status: Acute (5) Hammertoe of right foot: Status: Acute Plan 1. Osteomyelitis around hardware of right 3rd toe Surgery performed at [facility] in August 2024 Case was discussed with Dr. Eduardo, and a collaborative treatment plan was formed: At this time, osteomyelitic findings appear chronic, and per Dr. Eduardo any further surgical intervention should be performed by [facility] Patient may be stabilized with antibiotics prior to that Recommend continuation of IV antibiotics Patient should keep previously scheduled follow-up with [facility] next week for discussion of potential further surgical intervention and/or hardware removal Patient understands this and is amenable to this plan Patient should follow-up at [facility] next week upon discharge Procedures Date of Service Date of Service: 03/24/25
--- NOTE | 2025-03-24 08:10 | MHC.CM.PN ---
IMM delivered. Patient lives in a home w/ his . Functionally independent. Denies use of DME or services. + , unsure if he is [facility]. 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 Copy requested. DP: Awaiting ID eval. Home self care vs home w/ IV abx (prefers [facility] and [facility]). Patient would feel comfortable managing IV abx, and can assist if needed. Referrals sent via [facility]. will transport at tn. CM will continue to follow.
[2025-03-24] MEDS: Pentoxifylline ER 400 MG TABLET.ER PO ×2 (08:51→21:09)
[2025-03-24] MEDS: Vitamin E (Dl,Tocopheryl Acet) 180 MG (400 UNIT) CAPSULE 360 MG PO (08:51)
[2025-03-24 10:23] LABS: MRSA Nasal PCR NEGATIVE (Negative); SA Nasal PCR POSITIVE (Negative)
[2025-03-24 11:40] LABS: Glucose, Whole Blood 147 mg/dL (60-115)
[2025-03-24 12:00] VITALS: BP 132/66; PULSE 63; RESP 16; TEMP 36.8; O2SAT 96
[2025-03-24 15:15] VITALS: BP 133/68; PULSE 91; RESP 16; TEMP 36.9; O2SAT 95
[2025-03-24 16:24] LABS: Glucose, Whole Blood 126 mg/dL (60-115)
--- NOTE | 2025-03-24 17:06 | HO.PM.IMPN ---
Subjective Subjective Date of Service: 03/24/25 Interval History: foot infection Review of Systems has fo0ot pain Review of Systems: Yes all other systems are reviewed and are negative Physical Exam Exam: Exam: Alert and orientated X3 Neuro: CN II-X11 intact, no deficits, visual acuity intact Cardiac: S1 S2 RRR, no murmur, no JVD, no edema in Lower ext Pulmonary: lungs clear to auscultation B Abdominal: BS active in all 4 quadrants, no guarding, no tenderness Extremities: no edema in lower extremities, PT and DP pulses palpable +2, 3rd toe R foot ecchymotic, slightly warm, no obvious pustule but redness travels to below mid foot Psych: mood stable, judgement and insight good Skin: intact Vital Signs: Vital Signs: Last Vital Signs Temp 98.4 F 03/24/25 15:15 Pulse 91 03/24/25 15:15 Resp 16 03/24/25 15:15 BP 133/68 03/24/25 15:15 Pulse Ox 95 03/24/25 15:15 O2 Del Method Room Air 03/24/25 15:15 BMI result Body Mass Index 31.7 Objective Data Active Medications Acetaminophen (Acetaminophen 325 Mg Tablet) 650 mg PO Q6H PRN PRN Reason: Pain, Mild 1-3,fever,headache Albuterol/Ipratropium (Albuterol/Iprat 2.5/0.5mg 3 Ml Ampul.Neb) 3 ml INHALE Q4H PRN PRN Reason: Shortness of Breath/Wheezing Amlodipine Besylate (Amlodipine Besylate 2.5 Mg Tablet) 2.5 mg PO DAILY [facility]; Protocol Last Admin: 03/24/25 08:51 Dose: 2.5 mg Documented By: LLUVIA Atorvastatin Calcium (Atorvastatin Calcium 20 Mg Tablet) 20 mg PO BEDTIME [facility] Calcium Carbonate (Calcium Carbonate 750 Mg Tab.Chew) 750 mg PO Q4H PRN PRN Reason: Heartburn Dextrose (Dextrose 50 % 25 Gm/50 Ml Syringe) 25 gm IVPUSH Q15M PRN; Protocol PRN Reason: per Hypoglycemia Standing Ord. Enoxaparin Sodium (Enoxaparin Sodium 40 Mg/0.4 Ml Syringe) 40 mg SUBCUT Q24H [facility] On Hold: 03/24/25 00:10 Last Admin: 03/23/25 23:32 Dose: 40 mg Documented By: CED Ferrous Sulfate (Ferrous Sulfate 324 Mg Tablet.) 324 mg PO BEDTIME [facility] Fluticasone Propionate (Fluticasone Propionate Nasal 16 Gm [place]) 1 spray NOSTRIL-B BID PRN PRN Reason: Allergy Symptoms Glucose (Glucose Gel 15 Gm Gel..Gram.) 15 gm PO Q15M PRN; Protocol PRN Reason: per Hypoglycemia Standing Ord. Vancomycin HCl 750 mg/ Sodium (Chloride) 265 mls @ 265 mls/hr IV Q12H [facility] Last Infusion: 03/24/25 13:17 Dose: Infused Documented By: LLUVIA Insulin Human Lispro (Insulin Lispro 100 Unit/Ml 3 Ml Vial) 0 unit SUBCUT QIDACHS [facility]; Protocol Last Admin: 03/24/25 15:52 Dose: Not Given Documented By: SOO Non-Admin Reason: No Insulin Coverage Magnesium Hydroxide (Milk Of Magnesia 30 Ml Oral.Susp) 30 ml PO DAILY PRN PRN Reason: Constipation Melatonin (Melatonin 3 Mg Tablet) 6 mg PO BEDTIME PRN PRN Reason: Insomnia Multivitamins/Vitamin C (Multivitamin Tablet) 1 tab PO BEDTIME [facility] Non-Formulary Medication (Dulaglutide [Trulicity]) 3 mg SUBCUT COLLINS [facility] Omeprazole (Omeprazole 20 Mg Capsule.) 20 mg PO DAILY@0630 [facility] Last Admin: 03/24/25 06:18 Dose: 20 mg Documented By: MARKO Ondansetron HCl (Ondansetron Hcl 4 Mg/2 Ml Vial) 4 mg IVPUSH Q8H PRN PRN Reason: Nausea and Vomiting Pentoxifylline (Pentoxifylline Er 400 Mg Tablet.Er) 400 mg PO BID [facility] Last Admin: 03/24/25 08:51 Dose: 400 mg Documented By: LLUVIA Pharmacy Consult (Consult Rx Vancomycin Dosing) 1 each MISCELLANE DAILY PRN PRN Reason: Consult order Polyethylene Glycol (Polyethylene Glycol 3350 17 Gm Powd.Pack) 17 gm PO DAILY PRN PRN Reason: Constipation Senna (Sennosides 8.6 Mg Tablet) 17.2 mg PO BEDTIME [facility] Sodium Chloride (0.9 % Sodium Chloride Flush 3 Ml Syringe) 3 ml IVFLUSH QSHIFT [facility] Last Admin: 03/24/25 15:46 Dose: 3 ml Documented By: SOO Vitamin E (Vitamin E (Dl,Tocopheryl Acet) 180 Mg (400 Unit) Capsule) 360 mg PO DAILY [facility] Last Admin: 03/24/25 08:51 Dose: 360 mg Documented By: LLUVIA Labs 03/24/25 05:40 03/24/25 05:41 Labs: Laboratory Results - last 24 hr 03/23/25 03/23/25 03/24/25 16:51 19:43 03:20 MCV 77.9 L MCH 26.6 L MCHC 34.2 RDW 15.2 Plt Count 285 MPV 8.7 L Immature Gran % (Auto) 0.3 Neut % (Auto) 70.3 Lymph % (Auto) 19.8 L [place] % (Auto) 6.4 Eos % (Auto) 2.6 Baso % (Auto) 0.6 Lymph # (Auto) 1.6 [place] # (Auto) 0.5 Eos # (Auto) 0.2 Baso # (Auto) 0.1 Abs Immat Gran (auto) 0.02 Absolute Neuts (auto) 5.6 Absolute Nucleated RBC 0.000 Nucleated RBC % (auto) 0.0 ESR 2 Anion Gap 16 Estim Creat Clear Calc 59.1 Estimated GFR 57 POC Glucose Random Glucose 173 H Lactic Acid 2.4 H* Lactic Acid F/U @ 2Hr 0.9 Calcium 9.7 Total Bilirubin 0.6 AST 29 ALT 32 Alkaline Phosphatase 70 C-Reactive Protein 0.11 Total Protein 6.9 Albumin 4.7 Nasal Screen MRSA (PCR) NEGATIVE Nasal S. aureus Screen POSITIVE A Nasal MRSA/S.aureus Interp SEE NOTE 03/24/25 03/24/25 03/24/25 05:40 05:41 07:22 MCV 78.9 L MCH 26.6 L MCHC 33.7 RDW 15.4 Plt Count 274 MPV 9.0 L Immature Gran % (Auto) 0.3 Neut % (Auto) 54.9 Lymph % (Auto) 29.5 [place] % (Auto) 9.6 Eos % (Auto) 4.7 H Baso % (Auto) 1.0 Lymph # (Auto) 1.8 [place] # (Auto) 0.6 Eos # (Auto) 0.3 Baso # (Auto) 0.1 Abs Immat Gran (auto) 0.02 Absolute Neuts (auto) 3.3 Absolute Nucleated RBC 0.000 Nucleated RBC % (auto) 0.0 ESR Anion Gap 12 Estim Creat Clear Calc 56.4 Estimated GFR 54 POC Glucose 131 H Random Glucose 96 Lactic Acid Lactic Acid F/U @ 2Hr Calcium 8.8 D Total Bilirubin AST ALT Alkaline Phosphatase C-Reactive Protein Total Protein Albumin Nasal Screen MRSA (PCR) Nasal S. aureus Screen Nasal MRSA/S.aureus Interp 03/24/25 03/24/25 11:24 15:48 MCV MCH MCHC RDW Plt Count MPV Immature Gran % (Auto) Neut % (Auto) Lymph % (Auto) [place] % (Auto) Eos % (Auto) Baso % (Auto) Lymph # (Auto) [place] # (Auto) Eos # (Auto) Baso # (Auto) Abs Immat Gran (auto) Absolute Neuts (auto) Absolute Nucleated RBC Nucleated RBC % (auto) ESR Anion Gap Estim Creat Clear Calc Estimated GFR POC Glucose 147 H 126 H Random Glucose Lactic Acid Lactic Acid F/U @ 2Hr Calcium Total Bilirubin AST ALT Alkaline Phosphatase C-Reactive Protein Total Protein Albumin Nasal Screen MRSA (PCR) Nasal S. aureus Screen Nasal MRSA/S.aureus Interp Assessment and Plan (1) Foot infection: Status: Acute Plan 69 yo male with PMH NIDDM, Hammer toes B with repair, Ganglion cyst left wrist, CKD, BPH, Peyronie's, ED, Bronchitis, HLD, HTN, GERD, Neuropathy, EMEKA and Trigger finger with repair presents to ED after learning from Urgent care that xray of R foot notes OM and loose screw. Pt had hammer toe repair with [facility] 08/2024 and had an injury nonspecific for R foot September 2024. Last follow up with [facility] 02/10/2025 and xray was negative for infection, OM or hardware issues. OM via Xray R foot s/p hammer toe repair 08/2024 with [facility] Pt started on IV Zosyn and Vanco Unable to culture foot Unclear if pt can have MRI of R foot due to presence of hardware in R foot ID consulted IVF for elevated LA, now normalized BC pending Orthopedics consulted for overview noting loose hardware Hold DVT prophylaxis in case procedure or intervention needed NPO after midnight HTN Continue lisinopril and HCTZ Low Na diet NIDDM Pt normally on Trulicity (WED) and metformin SSI only for now Diabetic diet BPH Pt is not on Tamsulosin Follows with urology as an outpatient HLD Continue statin LFTs stable EMEKA Continue ferrous sulfate GERD Continue omeperazole Avoid food triggers DVT prophylaxis: held in case procedure needed ongoing need:OM via Xray R foot s/p hammer toe repair 08/2024 with [facility]-continue iv antibiotics ,id eval. Quality Stroke Does the patient have a stroke diagnosis?: No Reason for No Anti-thrombotic by Day Two: Contraindicated VTE Prior VTE?: No VTE Risk Level:: Medical - moderate - high VTE Device Contraindication: N/A - Device Ordered VTE Drug Contraindication: N/A - Med Ordered
[2025-03-24 19:58] VITALS: BP 143/69; PULSE 79; RESP 18; TEMP 36.6; O2SAT 96
[2025-03-24 20:29] LABS: Glucose, Whole Blood 201 mg/dL (60-115)
[2025-03-24] MEDS: Ferrous Sulfate 324 MG TABLET.DR PO (21:09)
[2025-03-25] VITALS (8 sets, daily range): BP systolic 119–145; BP diastolic 58–81; PULSE 64–85; RESP 14–19; TEMP 36.3–36.9; O2SAT 95–97
[2025-03-25] MEDS: 0.9 % Sodium Chloride Flush 3 ML SYRINGE IVFLUSH
[2025-03-25 07:34] LABS: Glucose, Whole Blood 143 mg/dL (60-115)
[2025-03-25 07:40] LABS: Anion Gap 14 (12-20); Blood Urea Nitrogen 26 mg/dL (9-16); Calcium 8.5 mg/dL (8.4-10.2); Carbon Dioxide 23 mmol/L (22-29); Chloride 108 mmol/L (96-108); Creatinine Clr Calc Pharmacy 50.3; Estimated Glomerular Filt Rate 48; Potassium 3.8 mmol/L (3.3-5.1); Sodium 141 mmol/L (135-145)
--- NOTE | 2025-03-25 07:58 | P.PNIM_ITS ---
Subjective Subjective Date of Service: 03/25/25 Interval History: om Review of Systems says foot pain improving No fever Review of Systems: Yes all other systems are reviewed and are negative Physical Exam 2 Exam: Exam: Alert and orientated X3 Neuro: CN II-X11 intact, no deficits, visual acuity intact Cardiac: S1 S2 RRR, no murmur, no JVD, no edema in Lower ext Pulmonary: lungs clear to auscultation B Abdominal: Soft nondistended ,nt ,bowel sounds positive Extremities: no edema in lower extremities, PT and DP pulses palpable +2, 3rd toe R foot ecchymotic, slightly warm, no obvious pustule but foot erythema improving Skin: intact Vital Signs: Vital Signs: Last Vital Signs Temp 97.3 F 03/25/25 07:17 Pulse 66 03/25/25 07:17 Resp 14 03/25/25 07:17 BP 119/73 03/25/25 07:17 Pulse Ox 95 03/25/25 07:17 O2 Del Method Room Air 03/25/25 07:17 BMI result Body Mass Index 31.7 Objective Data Active Medications Acetaminophen (Acetaminophen 325 Mg Tablet) 650 mg PO Q6H PRN PRN Reason: Pain, Mild 1-3,fever,headache Albuterol/Ipratropium (Albuterol/Iprat 2.5/0.5mg 3 Ml Ampul.Neb) 3 ml INHALE Q4H PRN PRN Reason: Shortness of Breath/Wheezing Amlodipine Besylate (Amlodipine Besylate 2.5 Mg Tablet) 2.5 mg PO DAILY [facility]; Protocol Last Admin: 03/24/25 08:51 Dose: 2.5 mg Documented By: LLUVIA Atorvastatin Calcium (Atorvastatin Calcium 20 Mg Tablet) 20 mg PO BEDTIME [facility] Last Admin: 03/24/25 21:08 Dose: 20 mg Documented By: JESSY Calcium Carbonate (Calcium Carbonate 750 Mg Tab.Chew) 750 mg PO Q4H PRN PRN Reason: Heartburn Dextrose (Dextrose 50 % 25 Gm/50 Ml Syringe) 25 gm IVPUSH Q15M PRN; Protocol PRN Reason: per Hypoglycemia Standing Ord. Enoxaparin Sodium (Enoxaparin Sodium 40 Mg/0.4 Ml Syringe) 40 mg SUBCUT Q24H [facility] On Hold: 03/24/25 00:10 Last Admin: 03/23/25 23:32 Dose: 40 mg Documented By: CED Ferrous Sulfate (Ferrous Sulfate 324 Mg Tablet.) 324 mg PO BEDTIME [facility] Last Admin: 03/24/25 21:09 Dose: 324 mg Documented By: JESSY Fluticasone Propionate (Fluticasone Propionate Nasal 16 Gm [place]) 1 spray NOSTRIL-B BID PRN PRN Reason: Allergy Symptoms Glucose (Glucose Gel 15 Gm Gel..Gram.) 15 gm PO Q15M PRN; Protocol PRN Reason: per Hypoglycemia Standing Ord. Vancomycin HCl 750 mg/ Sodium (Chloride) 265 mls @ 265 mls/hr IV Q12H [facility] Last Infusion: 03/25/25 02:21 Dose: Infused Documented By: JESSY Sodium Chloride (Ns) 1,000 mls @ 80 mls/hr IVCONT .[id number] [facility] Insulin Human Lispro (Insulin Lispro 100 Unit/Ml 3 Ml Vial) 0 unit SUBCUT QIDACHS [facility]; Protocol Last Admin: 03/25/25 07:53 Dose: Not Given Documented By: BRANDO Non-Admin Reason: No Insulin Coverage Magnesium Hydroxide (Milk Of Magnesia 30 Ml Oral.Susp) 30 ml PO DAILY PRN PRN Reason: Constipation Melatonin (Melatonin 3 Mg Tablet) 6 mg PO BEDTIME PRN PRN Reason: Insomnia Multivitamins/Vitamin C (Multivitamin Tablet) 1 tab PO BEDTIME [facility] Last Admin: 03/24/25 21:09 Dose: 1 tab Documented By: JESSY Non-Formulary Medication (Dulaglutide [Trulicity]) 3 mg SUBCUT COLLINS [facility] Omeprazole (Omeprazole 20 Mg Capsule.) 20 mg PO DAILY@0630 [facility] Last Admin: 03/25/25 06:25 Dose: 20 mg Documented By: JESSY Ondansetron HCl (Ondansetron Hcl 4 Mg/2 Ml Vial) 4 mg IVPUSH Q8H PRN PRN Reason: Nausea and Vomiting Pentoxifylline (Pentoxifylline Er 400 Mg Tablet.Er) 400 mg PO BID [facility] Last Admin: 03/24/25 21:09 Dose: 400 mg Documented By: JESSY Pharmacy Consult (Consult Rx Vancomycin Dosing) 1 each MISCELLANE DAILY PRN PRN Reason: Consult order Polyethylene Glycol (Polyethylene Glycol 3350 17 Gm Powd.Pack) 17 gm PO DAILY PRN PRN Reason: Constipation Senna (Sennosides 8.6 Mg Tablet) 17.2 mg PO BEDTIME [facility] Last Admin: 03/24/25 21:07 Dose: Not Given Documented By: JESSY Non-Admin Reason: Patient Refused Sodium Chloride (0.9 % Sodium Chloride Flush 3 Ml Syringe) 3 ml IVFLUSH QSHIFT [facility] Last Admin: 03/25/25 00:00 Dose: 3 ml Documented By: JESSY Vitamin E (Vitamin E (Dl,Tocopheryl Acet) 180 Mg (400 Unit) Capsule) 360 mg PO DAILY [facility] Last Admin: 03/24/25 08:51 Dose: 360 mg Documented By: LLUVIA Labs 03/24/25 05:40 03/25/25 05:45 Labs: Laboratory Results - last 24 hr 03/24/25 03/24/25 03/24/25 03:20 11:24 15:48 Hold Purple Top Anion Gap Estim Creat Clear Calc Estimated GFR POC Glucose 147 H 126 H Random Glucose Calcium Nasal Screen MRSA (PCR) NEGATIVE Nasal S. aureus Screen POSITIVE A Nasal MRSA/S.aureus Interp SEE NOTE 03/24/25 03/25/25 03/25/25 20:17 05:45 06:42 Hold Purple Top SEE NOTE Anion Gap 14 Estim Creat Clear Calc 50.3 Estimated GFR 48 POC Glucose 201 H Random Glucose 112 Calcium 8.5 Nasal Screen MRSA (PCR) Nasal S. aureus Screen Nasal MRSA/S.aureus Interp 03/25/25 07:19 Hold Purple Top Anion Gap Estim Creat Clear Calc Estimated GFR POC Glucose 143 H Random Glucose Calcium Nasal Screen MRSA (PCR) Nasal S. aureus Screen Nasal MRSA/S.aureus Interp Microbiology Microbiology Results: Microbiology 03/23/25 16:51 Blood Culture - Preliminary Blood - Venous No growth after 24 hours. 03/23/25 16:51 Blood Culture - Preliminary Blood - Venous No growth after 24 hours. Assessment and Plan (1) Foot infection: Status: Acute Plan 69 yo male with PMH NIDDM, Hammer toes B with repair, Ganglion cyst left wrist, CKD, BPH, Peyronie's, ED, Bronchitis, HLD, HTN, GERD, Neuropathy, EMEKA and Trigger finger with repair presents to ED after learning from Urgent care that xray of R foot notes OM and loose screw. Pt had hammer toe repair with [facility] 08/2024 and had an injury nonspecific for R foot September 2024. Last follow up with [facility] 02/10/2025 and xray was negative for infection, OM or hardware issues. OM via Xray R foot s/p hammer toe repair 08/2024 with [facility] Pt started on IV Zosyn and Vanco Unable to culture foot Unclear if pt can have MRI of R foot due to presence of hardware in R foot ID consulted IVF for elevated LA, now normalized BC pending Orthopedics consulted for overview noting loose hardware Hold DVT prophylaxis in case procedure or intervention needed NPO after midnight Ckd 3a: cr flactauting baseline 1.2 to 1.47 continue to moniter added gentle hydration HTN Continue lisinopril and HCTZ Low Na diet NIDDM Pt normally on Trulicity (WED) and metformin SSI only for now Diabetic diet BPH Pt is not on Tamsulosin Follows with urology as an outpatient HLD Continue statin LFTs stable EMEKA Continue ferrous sulfate GERD Continue omeperazole Avoid food triggers DVT prophylaxis: held in case procedure needed ongoing need:OM via Xray R foot s/p hammer toe repair 08/2024 with [facility]-continue iv antibiotics ,id eval. Quality Stroke Does the patient have a stroke diagnosis?: No Reason for No Anti-thrombotic by Day Two: Contraindicated VTE Prior VTE?: No VTE Risk Level:: Medical - moderate - high VTE Device Contraindication: N/A - Device Ordered VTE Drug Contraindication: N/A - Med Ordered
[2025-03-25] MEDS: Vitamin E (Dl,Tocopheryl Acet) 180 MG (400 UNIT) CAPSULE 360 MG PO (08:28)
[2025-03-25] MEDS: Pentoxifylline ER 400 MG TABLET.ER PO ×2 (08:28→20:23)
[2025-03-25 11:15] LABS: Glucose, Whole Blood 204 mg/dL (60-115)
--- NOTE | 2025-03-25 11:46 | HE.PHANOTE ---
Vancomycin addendum: Level came back at 11.6. Will recheck level issa and continue same dose and regimen
[2025-03-25 16:10] LABS: Glucose, Whole Blood 138 mg/dL (60-115)
[2025-03-25 20:18] LABS: Glucose, Whole Blood 150 mg/dL (60-115)
[2025-03-25] MEDS: Ferrous Sulfate 324 MG TABLET.DR PO (20:23)
--- NOTE | 2025-03-25 22:46 | W.PM.IDCN ---
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 He has XRay shows osteomyelitis and also loosening screws right head metatarsal third toe. He has no fever or chills. He has surgery for hammertoe [facility] 08/2024 and doing well apparently until now. There is no injury. Review of Systems Review of Systems: Yes all other systems are reviewed and are negative [facility] Past Medical History Medical History (Updated 03/24/25 @ 18:42 by Sana Harrison MD) Erectile dysfunction Peyronie's disease Hematoma of right third toe Diabetes GERD (gastroesophageal reflux disease) Barretts esophagus Patellofemoral arthritis of left knee Type 2 diabetes mellitus with diabetic polyneuropathy Subjective memory complaints Enlarged prostate Renal insufficiency Iron deficiency Hyperlipidemia HTN (hypertension) Hyperlipidemia LDL goal <100 Family History Family History Father Diabetes Mother Lung cancer Son No problems noted. Son No problems noted. Son No problems noted. Son No problems noted. Son No problems noted. Son No problems noted. Daughter No problems noted. Daughter No problems noted. Paternal Grandmother Diabetes Family history: reviewed and not pertinent Surgical History Surgical History History of right inguinal hernia repair History of left knee surgery History of shoulder surgery History of tonsillectomy History of nasal surgery Hx of esophagogastroduodenoscopy Hx of colonoscopy History of foot surgery Social History Social History Household Members: Spouse Housing: House Do you presently have visiting nurse or other home services: No Alcohol intake: never Patient Tobacco Use Status: Never used Tobacco e-Cigarette/Vaping Use: Never Used Second Hand Smoke Exposure: No service: No Current occupational status: retired Cognitive needs: No Hearing needs: No Vision needs: Yes Travel History Ebola Risk: Travel/Contact With Anyone From Affected Area/s: No Has Patient Experienced Ebola Symptoms: No Meds Allergies Allergy/AdvReac Type Severity Reaction Status Date / Time No Known Allergies (No Known Allergy Verified 03/23/25 16:24 Allergies*) Active Medications: Current Medications Acetaminophen (Acetaminophen 325 Mg Tablet) 650 mg PO Q6H PRN PRN Reason: Pain, Mild 1-3,fever,headache Albuterol/Ipratropium (Albuterol/Iprat 2.5/0.5mg 3 Ml Ampul.Neb) 3 ml INHALE Q4H PRN PRN Reason: Shortness of Breath/Wheezing Amlodipine Besylate (Amlodipine Besylate 2.5 Mg Tablet) 2.5 mg PO DAILY [facility]; Protocol Last Admin: 03/25/25 08:28 Dose: 2.5 mg Atorvastatin Calcium (Atorvastatin Calcium 20 Mg Tablet) 20 mg PO BEDTIME [facility] Last Admin: 03/25/25 20:23 Dose: 20 mg Calcium Carbonate (Calcium Carbonate 750 Mg Tab.Chew) 750 mg PO Q4H PRN PRN Reason: Heartburn Dextrose (Dextrose 50 % 25 Gm/50 Ml Syringe) 25 gm IVPUSH Q15M PRN; Protocol PRN Reason: per Hypoglycemia Standing Ord. Enoxaparin Sodium (Enoxaparin Sodium 40 Mg/0.4 Ml Syringe) 40 mg SUBCUT Q24H [facility] On Hold: 03/24/25 00:10 Last Admin: 03/23/25 23:32 Dose: 40 mg Ferrous Sulfate (Ferrous Sulfate 324 Mg Tablet.Dr) 324 mg PO BEDTIME [facility] Last Admin: 03/25/25 20:23 Dose: 324 mg Fluticasone Propionate (Fluticasone Propionate Nasal 16 Gm [place]) 1 spray NOSTRIL-B BID PRN PRN Reason: Allergy Symptoms Glucose (Glucose Gel 15 Gm Gel..Gram.) 15 gm PO Q15M PRN; Protocol PRN Reason: per Hypoglycemia Standing Ord. Vancomycin HCl 750 mg/ Sodium (Chloride) 265 mls @ 265 mls/hr IV Q12H [facility] Last Infusion: 03/25/25 14:48 Dose: Infused Sodium Chloride (Ns) 1,000 mls @ 80 mls/hr IVCONT .[id number] [facility] Last Admin: 03/25/25 20:24 Dose: 80 mls/hr Insulin Human Lispro (Insulin Lispro 100 Unit/Ml 3 Ml Vial) 0 unit SUBCUT QIDACHS [facility]; Protocol Last Admin: 03/25/25 20:24 Dose: Not Given Magnesium Hydroxide (Milk Of Magnesia 30 Ml Oral.Susp) 30 ml PO DAILY PRN PRN Reason: Constipation Melatonin (Melatonin 3 Mg Tablet) 6 mg PO BEDTIME PRN PRN Reason: Insomnia Multivitamins/Vitamin C (Multivitamin Tablet) 1 tab PO BEDTIME [facility] Last Admin: 03/25/25 20:23 Dose: 1 tab Non-Formulary Medication (Dulaglutide [Trulicity]) 3 mg SUBCUT COLLINS [facility] Omeprazole (Omeprazole 20 Mg Capsule.Dr) 20 mg PO DAILY@629 [facility] Last Admin: 03/25/25 06:25 Dose: 20 mg Ondansetron HCl (Ondansetron Hcl 4 Mg/2 Ml Vial) 4 mg IVPUSH Q8H PRN PRN Reason: Nausea and Vomiting Pentoxifylline (Pentoxifylline Er 400 Mg Tablet.Er) 400 mg PO BID [facility] Last Admin: 03/25/25 20:23 Dose: 400 mg Pharmacy Consult (Consult Rx Vancomycin Dosing) 1 each MISCELLANE DAILY PRN PRN Reason: Consult order Polyethylene Glycol (Polyethylene Glycol 3350 17 Gm Powd.Pack) 17 gm PO DAILY PRN PRN Reason: Constipation Senna (Sennosides 8.6 Mg Tablet) 17.2 mg PO BEDTIME [facility] Last Admin: 03/25/25 20:24 Dose: Not Given Sodium Chloride (0.9 % Sodium Chloride Flush 3 Ml Syringe) [facility] Last Admin: 03/25/25 14:48 Dose: Not Given Vitamin E (Vitamin E (Dl,Tocopheryl Acet) 180 Mg (400 Unit) Capsule) 360 mg PO DAILY [facility] Last Admin: 03/25/25 08:28 Dose: 360 mg Home Medications ?Medication ?Instructions ?Recorded ?Confirmed ?Last Taken ?Type multivitamin 1 tab PO BEDTIME 06/06/20 03/23/25 03/22/25 History omega-3 fatty acids 1,000 mg 1,000 mg PO DAILY 06/06/20 03/23/25 03/23/25 History capsule (Fish Oil Concentrate) omeprazole 20 mg capsule,delayed 20 mg PO DAILY@0630 06/06/20 03/23/25 03/23/25 History release cetirizine 10 mg tablet (All Day 10 mg PO DAILY PRN Allergy Symptoms 02/12/23 03/23/25 Unknown History Allergy (cetirizine)) atorvastatin 20 mg tablet 20 mg PO BEDTIME 03/23/25 03/23/25 03/23/25 History dulaglutide 3 mg/0.5 mL 3 mg subcut COLLINS 03/23/25 03/23/25 03/19/25 History subcutaneous pen injector (Trulicity) ferrous sulfate 325 mg (65 mg 325 mg PO BEDTIME 03/23/25 03/23/25 03/22/25 History iron) tablet fluticasone propionate 50 1 spray intranasal BID PRN Allergy 03/23/25 03/23/25 Unknown History mcg/actuation nasal Symptoms spray,suspension lisinopril 10 mg tablet 10 mg PO BEDTIME 03/23/25 03/23/25 03/22/25 History tadalafil 5 mg tablet (Cialis) 5 mg PO DAILY PRN Sexual Activity 03/23/25 03/23/25 03/23/25 History Physical Exam Vital Signs: Vital Signs: Last Vital Signs Temp 98.4 F 03/25/25 19:11 Pulse 73 03/25/25 19:11 Resp 18 03/25/25 19:11 BP 135/68 03/25/25 19:11 Pulse Ox 95 03/25/25 19:11 O2 Del Method Room Air 03/25/25 19:11 BMI result Body Mass Index 31.7 Const: General: cooperative HEENT: Head: Yes normal to inspection Face and sinus: Yes normal facial exam Mouth: Normal oral and palatal mucosa present Teeth and gingiva: dentition normal Eyes: General: appearance normal, both eyes and all related structures Pupils: Equal, round and reactive pupils present Resp: Effort & Inspection: normal respiratory effort Cardio: Rate: regular rate Rhythm: regular rhythm GI: Palpation (GI): Soft to palpation and nontender : General: Yes no CVA tenderness Back/Spine/Pelvis: Back: no CVA tenderness Skin: General skin exam: no rashes or lesions noted Neuro: General: moves all extremities Cranial nerves: Yes Equal, round and reactive pupils present Extrem: Other: redness right great toe Psych: Appearance: grossly normal Results Labs 03/24/25 05:40 03/25/25 05:45 Labs: BMP 03/25/25 05:45 Sodium 141 Potassium 3.8 Chloride 108 Carbon Dioxide 23 BUN 26 H Creatinine 1.47 H Calcium 8.5 Microbiology Microbiology Results: Microbiology 03/23/25 16:51 Blood - Venous Blood Culture - Preliminary No growth after 48 hours. 03/23/25 16:51 Blood - Venous Blood Culture - Preliminary No growth after 48 hours. Assessment and Plan (1) Osteomyelitis: Qualifiers: Laterality: right Osteomyelitis location: foot Osteomyelitis type: unspecified type Qualified Code(s): M86.9 - Osteomyelitis, unspecified Status: Acute Plan Can use Vancomycin for six weeks suppression osteomyelitis,but dont know what organism and would be good to see if Podiatry or IR could aspirate. Alternatively he should return to [facility] as likely need at least wash out and screw removal.
[2025-03-26 03:43] VITALS: BP 108/56; PULSE 63; RESP 16; TEMP 36.2; O2SAT 94
[2025-03-26 06:56] LABS: Creatinine Clr Calc Pharmacy 61.6; Estimated Glomerular Filt Rate > 60
[2025-03-26 07:04] VITALS: BP 125/78; PULSE 62; RESP 14; TEMP 36.4; O2SAT 96
[2025-03-26 07:24] LABS: Glucose, Whole Blood 134 mg/dL (60-115)
--- NOTE | 2025-03-26 07:43 | HO.PM.IMPN ---
Subjective Subjective Date of Service: 03/26/25 Interval History: foot infection Review of Systems says foot pain improving No fever Review of Systems: Yes all other systems are reviewed and are negative Physical Exam Exam: Exam: Alert and orientated X3 Neuro: CN II-X11 intact, no deficits, visual acuity intact Cardiac: S1 S2 RRR, no murmur, no JVD, no edema in Lower ext Pulmonary: lungs clear to auscultation B Abdominal: Soft nondistended ,nt ,bowel sounds positive Extremities: no edema in lower extremities, PT and DP pulses palpable +2, 3rd toe R foot ecchymotic, slightly warm, no obvious pustule but foot erythema improving Skin: intact Vital Signs: Vital Signs: Last Vital Signs Temp 97.6 F 03/26/25 07:04 Pulse 62 03/26/25 07:04 Resp 14 03/26/25 07:04 BP 125/78 03/26/25 07:04 Pulse Ox 96 03/26/25 07:04 O2 Del Method Room Air 03/26/25 07:04 BMI result Body Mass Index 31.7 Objective Data Active Medications Acetaminophen (Acetaminophen 325 Mg Tablet) 650 mg PO Q6H PRN PRN Reason: Pain, Mild 1-3,fever,headache Albuterol/Ipratropium (Albuterol/Iprat 2.5/0.5mg 3 Ml Ampul.Neb) 3 ml INHALE Q4H PRN PRN Reason: Shortness of Breath/Wheezing Amlodipine Besylate (Amlodipine Besylate 2.5 Mg Tablet) 2.5 mg PO DAILY [facility]; Protocol Last Admin: 03/25/25 08:28 Dose: 2.5 mg Documented By: BRANDO Atorvastatin Calcium (Atorvastatin Calcium 20 Mg Tablet) 20 mg PO BEDTIME [facility] Last Admin: 03/25/25 20:23 Dose: 20 mg Documented By: SHERI Calcium Carbonate (Calcium Carbonate 750 Mg Tab.Chew) 750 mg PO Q4H PRN PRN Reason: Heartburn Dextrose (Dextrose 50 % 25 Gm/50 Ml Syringe) 25 gm IVPUSH Q15M PRN; Protocol PRN Reason: per Hypoglycemia Standing Ord. Enoxaparin Sodium (Enoxaparin Sodium 40 Mg/0.4 Ml Syringe) 40 mg SUBCUT Q24H [facility] On Hold: 03/24/25 00:10 Last Admin: 03/23/25 23:32 Dose: 40 mg Documented By: NICOLE-MATNIKKO Ferrous Sulfate (Ferrous Sulfate 324 Mg Tablet.) 324 mg PO BEDTIME [facility] Last Admin: 03/25/25 20:23 Dose: 324 mg Documented By: SHERI Fluticasone Propionate (Fluticasone Propionate Nasal 16 Gm [place]) 1 spray NOSTRIL-B BID PRN PRN Reason: Allergy Symptoms Glucose (Glucose Gel 15 Gm Gel..Gram.) 15 gm PO Q15M PRN; Protocol PRN Reason: per Hypoglycemia Standing Ord. Vancomycin HCl 750 mg/ Sodium (Chloride) 265 mls @ 265 mls/hr IV Q12H [facility] Last Infusion: 03/26/25 01:47 Dose: Infused Documented By: SHERI Sodium Chloride (Ns) 1,000 mls @ 80 mls/hr IVCONT .[id number] [facility] Last Infusion: 03/26/25 01:47 Dose: 80 mls/hr Documented By: SHERI Insulin Human Lispro (Insulin Lispro 100 Unit/Ml 3 Ml Vial) 0 unit SUBCUT QIDACHS [facility]; Protocol Last Admin: 03/26/25 07:35 Dose: Not Given Documented By: BRANDO Non-Admin Reason: No Insulin Coverage Magnesium Hydroxide (Milk Of Magnesia 30 Ml Oral.Susp) 30 ml PO DAILY PRN PRN Reason: Constipation Melatonin (Melatonin 3 Mg Tablet) 6 mg PO BEDTIME PRN PRN Reason: Insomnia Multivitamins/Vitamin C (Multivitamin Tablet) 1 tab PO BEDTIME [facility] Last Admin: 03/25/25 20:23 Dose: 1 tab Documented By: SHERI Non-Formulary Medication (Dulaglutide [Trulicity]) 3 mg SUBCUT [facility] Omeprazole (Omeprazole 20 Mg Capsule.) 20 mg PO DAILY@0630 [facility] Last Admin: 03/26/25 06:09 Dose: 20 mg Documented By: SHERI Ondansetron HCl (Ondansetron Hcl 4 Mg/2 Ml Vial) 4 mg IVPUSH Q8H PRN PRN Reason: Nausea and Vomiting Pentoxifylline (Pentoxifylline Er 400 Mg Tablet.Er) 400 mg PO BID [facility] Last Admin: 03/25/25 20:23 Dose: 400 mg Documented By: SHERI Pharmacy Consult (Consult Rx Vancomycin Dosing) 1 each MISCELLANE DAILY PRN PRN Reason: Consult order Polyethylene Glycol (Polyethylene Glycol 3350 17 Gm Powd.Pack) 17 gm PO DAILY PRN PRN Reason: Constipation Senna (Sennosides 8.6 Mg Tablet) 17.2 mg PO BEDTIME [facility] Last Admin: 03/25/25 20:24 Dose: Not Given Documented By: SHERI Non-Admin Reason: Patient Refused Sodium Chloride (0.9 % Sodium Chloride Flush 3 Ml Syringe) 3 ml IVFLUSH QSHIFT [facility] Last Admin: 03/26/25 07:35 Dose: Not Given Documented By: BRANDO Non-Admin Reason: IV Running Vitamin E (Vitamin E (Dl,Tocopheryl Acet) 180 Mg (400 Unit) Capsule) 360 mg PO DAILY [facility] Last Admin: 03/25/25 08:28 Dose: 360 mg Documented By: BRANDO Labs 03/24/25 05:40 03/26/25 05:59 Labs: Laboratory Results - last 24 hr 03/25/25 03/25/25 03/25/25 11:05 11:06 16:01 Hold Purple Top Estim Creat Clear Calc Estimated GFR POC Glucose 204 H 138 H Random Vancomycin 11.6 L 03/25/25 03/26/25 03/26/25 20:12 05:58 05:59 Hold Purple Top SEE NOTE Estim Creat Clear Calc 61.6 Estimated GFR > 60 POC Glucose 150 H Random Vancomycin 03/26/25 07:06 Hold Purple Top Estim Creat Clear Calc Estimated GFR POC Glucose 134 H Random Vancomycin Microbiology Microbiology Results: Microbiology 03/23/25 16:51 Blood Culture - Preliminary Blood - Venous No growth after 48 hours. 03/23/25 16:51 Blood Culture - Preliminary Blood - Venous No growth after 48 hours. Assessment and Plan (1) Foot infection: Status: Acute Plan 69 yo male with PMH NIDDM, Hammer toes B with repair, Ganglion cyst left wrist, CKD, BPH, Peyronie's, ED, Bronchitis, HLD, HTN, GERD, Neuropathy, EMEAK and Trigger finger with repair presents to ED after learning from Urgent care that xray of R foot notes OM and loose screw. Pt had hammer toe repair with [facility] 08/2024 and had an injury nonspecific for R foot September 2024. Last follow up with [facility] 02/10/2025 and xray was negative for infection, OM or hardware issues. OM via Xray R foot s/p hammer toe repair 08/2024 with [facility] Pt started on IV Zosyn and Vanco Unable to culture foot Unclear if pt can have MRI of R foot due to presence of hardware in R foot ID consulted IVF for elevated LA, now normalized BC pending Orthopedics consulted for overview noting loose hardware Hold DVT prophylaxis in case procedure or intervention needed NPO after midnight Ckd 3a: cr flactauting baseline 1.2 to 1.47 continue to moniter added gentle hydration HTN Continue lisinopril and HCTZ Low Na diet NIDDM Pt normally on Trulicity (WED) and metformin SSI only for now Diabetic diet BPH Pt is not on Tamsulosin Follows with urology as an outpatient HLD Continue statin LFTs stable EMEKA Continue ferrous sulfate GERD Continue omeperazole Avoid food triggers DVT prophylaxis: held in case procedure needed ongoing need:OM via Xray R foot s/p hammer toe repair 08/2024 with [facility]-continue iv antibiotics ,id eval-picc line for iv antibiotics 6 weeks Quality Stroke Does the patient have a stroke diagnosis?: No Reason for No Anti-thrombotic by Day Two: Contraindicated VTE Prior VTE?: No VTE Risk Level:: Medical - moderate - high VTE Device Contraindication: N/A - Device Ordered VTE Drug Contraindication: N/A - Med Ordered
[2025-03-26 07:54] LABS: Anion Gap 11 (12-20); Blood Urea Nitrogen 24 mg/dL (9-16); Calcium 8.3 mg/dL (8.4-10.2); Carbon Dioxide 23 mmol/L (22-29); Chloride 112 mmol/L (96-108); Potassium 4.0 mmol/L (3.3-5.1); Sodium 142 mmol/L (135-145)
[2025-03-26] MEDS: Pentoxifylline ER 400 MG TABLET.ER PO ×2 (08:13→21:27)
[2025-03-26] MEDS: Vitamin E (Dl,Tocopheryl Acet) 180 MG (400 UNIT) CAPSULE 360 MG PO (08:13)
[2025-03-26 11:56] VITALS: BP 142/66; PULSE 67; RESP 16; TEMP 36.4; O2SAT 100
--- NOTE | 2025-03-26 12:05 | HE.PHANOTE ---
Vancomycin addendum: level came back at 12.4 with predicted AUC of 365, I am increasing dose to 1 gram q 12 and will recheck a level. Scr had bumped up slightly but has come back down.
[2025-03-26 15:10] VITALS: BP 148/71; PULSE 69; RESP 16; TEMP 36.2; O2SAT 99
[2025-03-26 16:15] LABS: Glucose, Whole Blood 143 mg/dL (60-115)
[2025-03-26 16:15] LABS: Glucose, Whole Blood 161 mg/dL (60-115)
[2025-03-26 19:29] VITALS: BP 133/63; PULSE 69; RESP 17; TEMP 36.4; O2SAT 96
[2025-03-26 20:53] LABS: Glucose, Whole Blood 149 mg/dL (60-115)
[2025-03-26] MEDS: Ferrous Sulfate 324 MG TABLET.DR PO (21:27)
[2025-03-26 23:49] VITALS: BP 150/75; PULSE 65; RESP 17; TEMP 36.3; O2SAT 96
[2025-03-27 03:34] VITALS: BP 121/72; PULSE 70; RESP 17; TEMP 36; O2SAT 95
[2025-03-27 06:11] LABS: Creatinine Clr Calc Pharmacy 56.4; Estimated Glomerular Filt Rate 54
--- NOTE | 2025-03-27 07:26 | PM.DS ---
DS: Providers Provider Date of Service: 04/26/25 Date of admission: 03/23/25 20:52 Date of discharge: 03/27/25 Primary care physician: LIEN Drew Consults: 03/23/25 23:34 Consult to Infectious Diseases Routine Consulting Provider: [facility] Reason for consultation: OM R foot Has provider been notified: No Consult to Orthopedics Routine Consulting Provider: [facility] Reason for consultation: s/p hammer toe repair with current OM R foot Has provider been notified: No 03/25/25 07:43 Consult to Nephrology Routine Consulting Provider: [facility] Reason for consultation: amarilys Attending physician on discharge: Sana Harrison Discharging clinician: Sana Harrison DS: Diagnosis Discharge Diagnosis (1) Foot infection: Status: Acute DS: Summary Hospital Course Hospital Course: HPI:69 yo male with PMH NIDDM, Hammer toes B with repair, Ganglion cyst left wrist, CKD, BPH, Peyronie's, ED, Bronchitis, HLD, HTN, GERD, Neuropathy, EMEKA and Trigger finger with repair presents to ED after learning from Urgent care that xray of R foot notes OM. Pt went to UC due to recurring pustule, redness, pain and warmth of R foot. Pt denies chest pain, SOB, N/V, fever or night sweats. Pt is s/p repair of R foot for hammer toes with [facility] Aug 2024. Pt has injured his R foot in September 2024 when attempting to picker feeder his grandchild. Pt has not had OM of the affected foot prior. Pt's last follow up with [facility] was 02/10/25 and xray done that day was negative for acute infection. XRAY done through notes concerning osteomyelitis in the correct clinical settings of the proximal interphalangeal joint of the third toe.Loosening surrounding the screw of the head third metatarsal. Pt started on Zosyn in he ED and received IVF for elevated LA now normalized. Pt has no leukocytosis and vitals are stable, Glucose 173 mg/dL. Pt has not required narcotics for pain control. Pt does not meet criteria for sepsis on admission. Hospital course: 69 yo male with PMH NIDDM, Hammer toes B with repair, Ganglion cyst left wrist, CKD, BPH, Peyronie's, ED, Bronchitis, HLD, HTN, GERD, Neuropathy, EMEKA and Trigger finger with repair presents to ED after learning from Urgent care that xray of R foot notes OM and loose screw. Pt had hammer toe repair with [facility] 08/2024 and had an injury nonspecific for R foot September 2024. Last follow up with [facility] 02/10/2025 and xray was negative for infection, OM or hardware issues. OM via Xray R foot s/p hammer toe repair 08/2024 with [facility] : Patient was started on IV Zosyn and Vanco ESR and CRP seems fine,right foot xary:Concerning osteomyelitis in the correct clinical settings of the proximal interphalangeal joint of the third toe.Loosening surrounding the screw of the head third metatarsal. IVF for elevated LA, now normalized , blood culture negative at 48 hours. Seen by orthopedics and ID: Recommended 6 weeks of antibiotics due to concern of osteomyelitis as above. Patient is started on IV vanco, trough was 12.4 yesterday. Consider Monitor CBC, BMP, LFT, ESR, CRP Q weekly while on antibiotics. Ckd 3a: cr flactauting baseline 1.2 to 1.47 continue to moniter Encouraged for adequate p.o. hydration and intake. Plan: IV vanco as above-end date 05/06/2025 Consider Monitor CBC, BMP, LFT, ESR, CRP Q weekly while on antibiotics. Follow-up with PCP, ortho,Nephrology outpatient. Above management discussed with the patient detail length he understand and in agreement with the above plan, time spent 45 minute, all question answered. Time Attestation Total time managing care of this patient today: 45 mintues. Discharge Coordination Time (in mins): 45 min Quality: Safe Use of Opioids Does Pt have an Active Cancer Diagnosis on the Problem List?: No Quality: Stroke Does the patient have a stroke diagnosis?: No Physical Exam Exam: Exam: Alert and orientated X3 Neuro: CN II-X11 intact, no deficits, visual acuity intact Cardiac: S1 S2 RRR, no murmur, no JVD, no edema in Lower ext Pulmonary: lungs clear to auscultation B Abdominal: Soft nondistended ,nt ,bowel sounds positive Extremities: no edema in lower extremities, PT and DP pulses palpable +2, 3rd toe R foot -erythema/pain improved singnificantly. Skin: intact Vital Signs: Vital Signs: Last Vital Signs Temp 96.8 F 03/27/25 03:34 Pulse 70 03/27/25 03:34 Resp 17 03/27/25 03:34 BP 121/72 03/27/25 03:34 Pulse Ox 95 03/27/25 03:34 O2 Del Method Room Air 03/27/25 03:34 BMI result Body Mass Index 31.7 DS: Data Data Completed and Pending Labs on day of discharge: Laboratory Results - last 24 hr 03/26/25 03/26/25 03/26/25 05:59 10:54 11:10 Sodium 142 Potassium 4.0 Chloride 112 H Carbon Dioxide 23 Anion Gap 11 L BUN 24 H Creatinine Estim Creat Clear Calc Estimated GFR POC Glucose 161 H Random Glucose 126 H Calcium 8.3 L Vancomycin Trough 12.4 03/26/25 03/26/25 03/27/25 16:07 20:49 05:24 Sodium Potassium Chloride Carbon Dioxide Anion Gap BUN Creatinine 1.31 Estim Creat Clear Calc 56.4 Estimated GFR 54 POC Glucose 143 H 149 H Random Glucose Calcium Vancomycin Trough Preliminary micro results at discharge 03/23/25 16:51 Blood Culture - Preliminary Blood - Venous No growth after 48 hours. 03/23/25 16:51 Blood Culture - Preliminary Blood - Venous No growth after 48 hours. Imaging Chest x-ray: My impression: XR/XR toe RT min 2V IMPRESSION: Concerning osteomyelitis in the correct clinical settings of the proximal interphalangeal joint of the third toe. Loosening surrounding the screw of the head third metatarsal. Discharge Plan Discharge Anticipated Discharge Date/Time: 03/27/25 07:19 Patient Disposition: Home Health Service Discharge Diagnosis: foot infection Referrals: Giovanni Henriquez, [facility] [Primary Care Provider, Internal Medicine] - 1 Week Discharge Medications: New vancomycin in 0.9 % sodium chl 1 gram/250 mL solution 1 g IV Q12H Rx Instructions: end date is 05/06/25 Continued (DME) FreeStyle Lite Strips Strip See Rx Instructions .ROUTE .MEDSUPPLY Qty: 300 3RF Rx Instructions: As directed three times a day (DME) lancets [FreeStyle Lancets] 28 gauge misc See Rx Instructions .ROUTE .MEDSUPPLY Qty: 300 3RF Rx Instructions: As directed three time a day metformin 1,000 mg tablet 1,000 mg PO BID Qty: 180 1RF hydrochlorothiazide 25 mg tablet 25 mg PO DAILY Qty: 90 1RF pentoxifylline 400 mg tablet extended release 400 mg PO BID 90 Days Qty: 180 3RF vitamin E (dl, acetate) 450 mg (1,000 unit) capsule 450 mg PO DAILY 90 Days Qty: 90 3RF Trulicity 3 mg/0.5 mL pen injector 3 mg SUBCUT COLLINS atorvastatin 20 mg tablet 20 mg PO BEDTIME ferrous sulfate 325 mg (65 mg iron) tablet 325 mg PO BEDTIME lisinopril 10 mg tablet 10 mg PO BEDTIME fluticasone propionate 50 mcg/actuation spray,suspension 1 spray intranasal BID PRN (Reason: Allergy Symptoms) Rx Instructions: administer into each nostril tadalafil [Cialis] 5 mg tablet 5 mg PO DAILY PRN (Reason: Sexual Activity) omeprazole 20 mg capsule,delayed release(DR/EC) 20 mg PO DAILY@0630 omega-3 fatty acids [Fish Oil Concentrate] 1,000 mg capsule 1,000 mg PO DAILY multivitamin Tablet 1 tab PO BEDTIME cetirizine [All Day Allergy (cetirizine)] 10 mg tablet 10 mg PO DAILY PRN (Reason: Allergy Symptoms) lidocaine 5 % adhesive patch,medicated See Rx Instructions topical .COMPLEX Qty: 30 0RF Rx Instructions: leave on most painful area for up to 12 hrs topical Discharge Orders: Discharge Order (Routine); Ordered 03/27/25 Ordered By: Sana Harrison Diet: Advance to usual diet Activity on Discharge: As tolerated Stand Alone Forms: Patient Portal Discharge page Print Language: Amharic Care Plan Goals: OM via Xray R foot s/p hammer toe repair 08/2024 with [facility] -xray shows concerning osteomyelitis: 6 weeks of IV vanco, monitor CBC, CMP, ESR, CRP q 1 week while on antibiotics.continue vancomycin -end date 05/06/25. Patient is to follow up with his orthopedics tomorrow and further management as per orthopedics outpatient. Health Concerns: as above. Plan of Treatment: as above. Assessment: as above.
[2025-03-27 07:43] VITALS: BP 148/75; PULSE 64; RESP 16; TEMP 36; O2SAT 98
[2025-03-27 07:44] LABS: Glucose, Whole Blood 115 mg/dL (60-115)
[2025-03-27] MEDS: 0.9 % Sodium Chloride Flush 3 ML SYRINGE IVFLUSH ×2 (09:01→15:12)
[2025-03-27] MEDS: Vitamin E (Dl,Tocopheryl Acet) 180 MG (400 UNIT) CAPSULE 360 MG PO (09:01)
[2025-03-27] MEDS: Pentoxifylline ER 400 MG TABLET.ER PO (09:02)
[2025-03-27 11:25] VITALS: BP 151/77; PULSE 69; RESP 18; TEMP 36.1; O2SAT 98
[2025-03-27 11:31] LABS: Glucose, Whole Blood 186 mg/dL (60-115)
--- NOTE | 2025-03-27 12:09 | PM.CNNEP ---
History of Present Illness Reason for Consult Consult date: 03/27/25 Chief Complaint Chief complaint: osteomyelitis History of Present Illness Narrative: 69 y/o male with CKD3a, diabetes, BPH, HLD, HTN who presented on 03/23 from with osteomyelitis on foot xray. patient's creatinine has been stable for many years, ~1.2-1.4. He does not have any proteinuria. GFR upper 40s-60. He reports he feels well at bedside. States he has had mild kidney disease for many years and has been stable. Sees Dr Torres as outpatient. Denies complaints/concerns today. Nephrology consulted for PICC line clearance for long-term abx. Review of Systems Review of Systems Yes all other systems are reviewed and are negative PMFSH Past Medical History Medical History (Updated 03/24/25 @ 18:42 by Sana Harrison MD) Erectile dysfunction Peyronie's disease Hematoma of right third toe Diabetes GERD (gastroesophageal reflux disease) Barretts esophagus Patellofemoral arthritis of left knee Type 2 diabetes mellitus with diabetic polyneuropathy Subjective memory complaints Enlarged prostate Renal insufficiency Iron deficiency Hyperlipidemia HTN (hypertension) Hyperlipidemia LDL goal <100 Family History Family History Father Diabetes Mother Lung cancer Son No problems noted. Son No problems noted. Son No problems noted. Son No problems noted. Son No problems noted. Son No problems noted. Daughter No problems noted. Daughter No problems noted. Paternal Grandmother Diabetes Family history: reviewed and not pertinent Surgical History Surgical History History of right inguinal hernia repair History of left knee surgery History of shoulder surgery History of tonsillectomy History of nasal surgery Hx of esophagogastroduodenoscopy Hx of colonoscopy History of foot surgery Social History Social History Household Members: Spouse Housing: House Do you presently have visiting nurse or other home services: No Alcohol intake: never Patient Tobacco Use Status: Never used Tobacco e-Cigarette/Vaping Use: Never Used Second Hand Smoke Exposure: No service: No Current occupational status: retired Cognitive needs: No Hearing needs: No Vision needs: Yes Travel History Ebola Risk: Travel/Contact With Anyone From Affected Area/s: No Has Patient Experienced Ebola Symptoms: No Meds Allergies Allergy/AdvReac Type Severity Reaction Status Date / Time No Known Allergies (No Known Allergy Verified 03/23/25 16:24 Allergies*) Active Medications: Current Medications Acetaminophen (Acetaminophen 325 Mg Tablet) 650 mg PO Q6H PRN PRN Reason: Pain, Mild 1-3,fever,headache Albuterol/Ipratropium (Albuterol/Iprat 2.5/0.5mg 3 Ml Ampul.Neb) 3 ml INHALE Q4H PRN PRN Reason: Shortness of Breath/Wheezing Amlodipine Besylate (Amlodipine Besylate 2.5 Mg Tablet) 2.5 mg PO DAILY LOWELL; Protocol Last Admin: 03/27/25 09:02 Dose: 2.5 mg Atorvastatin Calcium (Atorvastatin Calcium 20 Mg Tablet) 20 mg PO BEDTIME LOWELL Last Admin: 03/26/25 21:27 Dose: 20 mg Calcium Carbonate (Calcium Carbonate 750 Mg Tab.Chew) 750 mg PO Q4H PRN PRN Reason: Heartburn Dextrose (Dextrose 50 % 25 Gm/50 Ml Syringe) 25 gm IVPUSH Q15M PRN; Protocol PRN Reason: per Hypoglycemia Standing Ord. Enoxaparin Sodium (Enoxaparin Sodium 40 Mg/0.4 Ml Syringe) 40 mg SUBCUT Q24H LOWELL On Hold: 03/24/25 00:10 Last Admin: 03/23/25 23:32 Dose: 40 mg Ferrous Sulfate (Ferrous Sulfate 324 Mg Tablet.Dr) 324 mg PO BEDTIME LOWELL Last Admin: 03/26/25 21:27 Dose: 324 mg Fluticasone Propionate (Fluticasone Propionate Nasal 16 Gm Axtell) 1 spray NOSTRIL-B BID PRN PRN Reason: Allergy Symptoms Glucose (Glucose Gel 15 Gm Gel..Gram.) 15 gm PO Q15M PRN; Protocol PRN Reason: per Hypoglycemia Standing Ord. Vancomycin HCl 1,000 mg/ (Sodium Chloride) 270 mls @ 270 mls/hr IV Q12H LOWELL Last Infusion: 03/27/25 02:29 Dose: Infused Insulin Human Lispro (Insulin Lispro 100 Unit/Ml 3 Ml Vial) 0 unit SUBCUT QIDACHS LOWELL; Protocol Last Admin: 03/27/25 09:01 Dose: Not Given Magnesium Hydroxide (Milk Of Magnesia 30 Ml Oral.Susp) 30 ml PO DAILY PRN PRN Reason: Constipation Melatonin (Melatonin 3 Mg Tablet) 6 mg PO BEDTIME PRN PRN Reason: Insomnia Multivitamins/Vitamin C (Multivitamin Tablet) 1 tab PO BEDTIME [facility] Last Admin: 03/26/25 21:27 Dose: 1 tab Non-Formulary Medication (Dulaglutide [Trulicity]) 3 mg SUBCUT COLLINS [facility] Omeprazole (Omeprazole 20 Mg Capsule.Dr) 20 mg PO DAILY@629 [facility] Last Admin: 03/27/25 06:30 Dose: 20 mg Ondansetron HCl (Ondansetron Hcl 4 Mg/2 Ml Vial) 4 mg IVPUSH Q8H PRN PRN Reason: Nausea and Vomiting Pentoxifylline (Pentoxifylline Er 400 Mg Tablet.Er) 400 mg PO BID [facility] Last Admin: 03/27/25 09:02 Dose: 400 mg Pharmacy Consult (Consult Rx Vancomycin Dosing) 1 each MISCELLANE DAILY PRN PRN Reason: Consult order Polyethylene Glycol (Polyethylene Glycol 3350 17 Gm Powd.Pack) 17 gm PO DAILY PRN PRN Reason: Constipation Senna (Sennosides 8.6 Mg Tablet) 17.2 mg PO BEDTIME [facility] Last Admin: 03/26/25 21:27 Dose: Not Given Sodium Chloride (0.9 % Sodium Chloride Flush 3 Ml Syringe) 3 ml IVFLUSH QSHIFT [facility] Last Admin: 03/27/25 09:01 Dose: 3 ml Vitamin E (Vitamin E (Dl,Tocopheryl Acet) 180 Mg (400 Unit) Capsule) 360 mg PO DAILY [facility] Last Admin: 03/27/25 09:01 Dose: 360 mg Home Medications ?Medication ?Instructions ?Recorded ?Confirmed ?Last Taken ?Type multivitamin 1 tab PO BEDTIME 06/06/20 03/23/25 03/22/25 History omega-3 fatty acids 1,000 mg 1,000 mg PO DAILY 06/06/20 03/23/25 03/23/25 History capsule (Fish Oil Concentrate) omeprazole 20 mg capsule,delayed 20 mg PO DAILY@30 06/06/20 03/23/25 03/23/25 History release cetirizine 10 mg tablet (All Day 10 mg PO DAILY PRN Allergy Symptoms 02/12/23 03/23/25 Unknown History Allergy (cetirizine)) atorvastatin 20 mg tablet 20 mg PO BEDTIME 03/23/25 03/23/25 03/23/25 History dulaglutide 3 mg/0.5 mL 3 mg subcut COLLINS 03/23/25 03/23/25 03/19/25 History subcutaneous pen injector (Trulicity) ferrous sulfate 325 mg (65 mg 325 mg PO BEDTIME 03/23/25 03/23/25 03/22/25 History iron) tablet fluticasone propionate 50 1 spray intranasal BID PRN Allergy 03/23/25 03/23/25 Unknown History mcg/actuation nasal Symptoms spray,suspension lisinopril 10 mg tablet 10 mg PO BEDTIME 03/23/25 03/23/25 03/22/25 History tadalafil 5 mg tablet (Cialis) 5 mg PO DAILY PRN Sexual Activity 03/23/25 03/23/25 03/23/25 History Physical Exam Vital Signs: Last Vital Signs Temp 97.0 F 03/27/25 11:25 Pulse 69 03/27/25 11:25 Resp 18 03/27/25 11:25 BP 151/77 H 03/27/25 11:25 Pulse Ox 98 03/27/25 11:25 O2 Del Method Room Air 03/27/25 11:25 BMI result Body Mass Index 31.7 Const General: no acute distress, alert and awake Resp Effort & Inspection: normal respiratory effort and able to speak in complete sentences Skin Rashes: no rashes Extrem General: No edema Results Lab Results 03/24/25 05:40 03/27/25 05:24 Lab results: Chemistry 03/25/25 03/26/25 03/27/25 05:45 05:59 05:24 Sodium 141 142 Potassium 3.8 4.0 Carbon Dioxide 23 23 BUN 26 H 24 H Creatinine 1.47 H 1.20 1.31 Calcium 8.5 8.3 L Assessment and Plan (1) CKD (chronic kidney disease) stage 3, GFR 30-59 ml/min: Qualifiers: Chronic kidney disease stage 3 subtype: stage 3a (GFR 45-59) Qualified Code(s): N18.31 - Chronic kidney disease, stage 3a Status: Acute Plan Patient with CKD3a without proteinuria, stable for a number of years now. Here with osteomyelitis needing long-term IV antibiotics. Patient is cleared from a renal standpoint for PICC placement. Discussed with Dr Kunz. Procedures Date of Service Date of Service: 03/27/25
--- NOTE | 2025-03-27 14:50 | HO.PICC ---
PICC Line Insertion NPICC Diagnosis: osteomyelitis Indication: usp Pertinent Labs: reviewed Technique: Following informed consent including risks, benefits and alternatives and using sterile technique including cap and mask, sterile gown, glove and drape, the right arm was prepped and draped in the usual sterile fashion of full barrier technique with CHG. Following completion of [place] Protocol the skin and soft tissues were anesthetized with 1% Lidocaine plain. Using ultrasound guidance, right brachial vein access was obtained. Over an 0.018 wire through peel-away sheath, a 4fr sigle lumen PASV PICC line was positioned. Catheter length is 44cm internal length, ocm external length, for a total trimmed length of 44cm. The procedure was performed in 272. Tip verification was performed by Sally Andrews with [place] 3CG. Tip located in SVC. Ultrasound was used to document vein patency and for needle entry. A formal ultrasound picture and cardiac rhythm strip was recorded. [employer] has released the line for use and it is currently dressed with a StatLock, Tegaderm, and CHG disc. Verification has been performed for blood return and line patency. Arm Circumference: 29cm Equipment: [employer] 3D PowerPICC SOLO catheter with Sherlock 3cg Tip Catheter Type: 4fr single lumen PASV Catheter Lot #: [id number]
--- NOTE | 2025-03-27 14:55 | MHC.CM.PN ---
Patient medically cleared for dc home w/ IV abx supplied by [facility] and SN through [facility]. Rec'd teach from [facility] liaison and feels comfortable with plan. ABX will be delivered tonight for overnight dose, [facility] will see patient tomorrow for afternoon dose. Patient aware. Private transport.
[2025-03-27] MEDS: 0.9 % Sodium Chloride Flush 10 ML SYRINGE IVFLUSH (15:12)
[2025-03-27 15:54] VITALS: BP 158/70; PULSE 66; RESP 19; TEMP 36.6; O2SAT 99
--- NOTE | 2025-03-28 16:23 | P.F2F_ITS ---
Service Date Service Date: 03/28/25 Encounter Date of encounter: 03/27/25 Encounter: date of service and discharge: 03/28/25 foot infection Reasons for Services Signs and symptoms assessed: any new pain /erythema or fevers Reason for assisted: CV/CP assess and/or care, medication management, medication treatment and teach disease management MD Overseeing Care: Giovanni Henriquez Homebound: Leaving the home is medically contraindicated at this time without the asist of a device and/or another person due th the listed conditions above and below. Reason homebound: weakness related to hospital stay Homebound supporting statement: patient is has foot infection -need iv antibiotics intermediate-needs labs draw,iv antibiotics and appointment help. Certification: Based on the above findings, I certify that this patient is confined to the home and needs intermittent assisted care, physical therapy and/or speech therapy, or continues to need occupational therapy. The patient is under my care, and I have initiated the establishment of the plan of care. The patient will be followed by a physician who will periodically review the plan of care. Time Spent With Patient Time: Total time managing care of this patient today ____ minutes.
== END 2025-03-27 17:09 | disposition home health service (06) | DRG 638 ==
LOC: HO.ED 20:20 → HO.EDOVER 20:57 → HO.S3 23:32
PROVIDERS: Nurse Practitioner Family; Registered Nurse Emergency; Admitting Provider Internal Medicine; Emergency Provider Emergency Medicine; PCP Nurse Practitioner Family; Visit Provider Internal Medicine
DX: E11.69 Type 2 diabetes mellitus with other specified complication (principal); M86.671 Other chronic osteomyelitis, right ankle and foot; T84.223A Displacement of internal fixation device of bones of foot and toes, initial encounter; N40.0 Benign prostatic hyperplasia without lower urinary tract symptoms; I12.9 Hypertensive chronic kidney disease with stage 1 through stage 4 chronic kidney disease, or unspecified chronic kidney disease; N18.31 Chronic kidney disease, stage 3a; Y79.8 Miscellaneous orthopedic devices associated with adverse incidents, not elsewhere classified; E78.5 Hyperlipidemia, unspecified; D50.9 Iron deficiency anemia, unspecified; K21.9 Gastro-esophageal reflux disease without esophagitis; E11.22 Type 2 diabetes mellitus with diabetic chronic kidney disease; Z79.84 Long term (current) use of oral hypoglycemic drugs; Z79.85 Long-term (current) use of injectable non-insulin antidiabetic drugs; Z79.899 Other long term (current) drug therapy
CPT/HCPCS: 36415; 36573; 80048; 80051; 80053; 80202; 82310; 82565; 82947; 83605; 84520; 85025; 85652; 86140; 87040; 87640; 87641; 99285; C1751; J1650; J2543; J3374; J7120

== ENCOUNTER → 2025-03-23 20:52 | Outpatient (BNV) | payer MEDICARE, OTHER, SELFPAY | PROVIDERS: Admitting Provider Internal Medicine; Emergency Provider Emergency Medicine; PCP Nurse Practitioner Family; Visit Provider Nurse Practitioner Family | DX: N18.31 Chronic kidney disease, stage 3a (principal) | CPT/HCPCS: 99221 ==

== ENCOUNTER → 2025-03-23 20:52 | Outpatient (BNV) | payer MEDICARE, OTHER, SELFPAY | PROVIDERS: Admitting Provider Internal Medicine; Emergency Provider Emergency Medicine; PCP Nurse Practitioner Family; Visit Provider Nurse Practitioner Family | DX: M86.171 Other acute osteomyelitis, right ankle and foot (principal) | CPT/HCPCS: 99223; 99231; 99239; G0180 ==

== ENCOUNTER → 2025-03-23 20:52 | Outpatient (BNV) | payer MEDICARE, OTHER, SELFPAY | PROVIDERS: Admitting Provider Internal Medicine; Emergency Provider Emergency Medicine; PCP Nurse Practitioner Family | DX: E11.42 Type 2 diabetes mellitus with diabetic polyneuropathy (principal); N18.31 Chronic kidney disease, stage 3a; M86.9 Osteomyelitis, unspecified; M20.41 Other hammer toe(s) (acquired), right foot | CPT/HCPCS: 99222 ==

== ENCOUNTER → 2025-03-23 20:52 | Outpatient (BNV) | payer MEDICARE, OTHER, SELFPAY | PROVIDERS: Admitting Provider Internal Medicine; Emergency Provider Emergency Medicine; PCP Nurse Practitioner Family; Visit Provider Internal Medicine | DX: M86.9 Osteomyelitis, unspecified (principal) | CPT/HCPCS: 99222 ==

== ENCOUNTER 2025-03-30 16:41 | Outpatient (REF) | payer MEDICARE, OTHER, SELFPAY ==
[2025-03-30 16:46] LABS: MANUAL DIFF FLAG NO
[2025-03-30 16:54] LABS: Hematocrit 39.3 % (42.0-52.0); Hemoglobin 13.0 g/dl (14.0-18.0); Imm Gran Abs Auto 0.03 X10*3/uL (0.00-0.03); Imm Gran Pct Auto 0.5 % (0.0-0.4); Lymphocytes Absolute Auto 1.4 X10*3/uL (1.2-4.9); Mean Corpuscular HGB Conc 33.1 g/dl (31.0-36.0); Mean Corpuscular Hemoglobin 26.3 pg (27.0-33.0); Mean Corpuscular Volume 79.4 fL (80.0-98.0); NRBC Abs Auto 0.000 X10*3/uL (0.0-0.012); NRBC Pct Auto 0.0 /100WBC (0.0-0.2); Platelet Count 266 X10*3/uL (160-400); Red Blood Count 4.95 X10*6/uL (4.60-5.80); White Blood Count 6.6 X10*3/uL (4.8-10.8)
[2025-03-30 17:58] LABS: Alanine Aminotransferase 28 U/L (0-40); Albumin Level 4.4 g/dL (3.5-5.0); Alkaline Phosphatase 63 U/L (39-117); Anion Gap 15 (12-20); Aspartate Amino Transferase 30 U/L (5-37); Blood Urea Nitrogen 37 mg/dL (9-16); Calcium 9.0 mg/dL (8.4-10.2); Carbon Dioxide 20 mmol/L (22-29); Chloride 110 mmol/L (96-108); Estimated Glomerular Filt Rate 55; Potassium 4.2 mmol/L (3.3-5.1); Sodium 141 mmol/L (135-145); Total Protein 6.4 g/dL (6.5-8.0)
--- OUTSIDE RECORDS SUMMARY | 2025-03-30 18:58 | XMS_ITS | Patient Health Record ---
Author Organization [facility] Address [address] [place] [address] Care Team Providers Care Pharmacy Manager Name Role Phone RICK RENE Primary Care Provider Johnathan John Unavailable [phone] Allergies No Known Allergies Reason For Referral [...] Problem Status W/U Status Risk Notes Problem 6197940 Diverticulitis o f large intestine without perforation or abscess without bleeding (K57.32) Active confirmed Problem 154959586 Encounter for screening for malignant neoplasm of colon (Z12.11) Active confirmed Problem 60901106 Iron deficiency anemia, unspecified iron deficiency anemia type (D50.9) Active confirmed Problem 668786831 Reflux esophagit is (K21.0) Active confirmed Problem Méndez esophagus (183405272) 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 Problem 226021432 Colorectal cance r (C19) Active confirmed Problem 794141138 Méndez''s esoph lópez without dysplasia (K22.70) Active confirmed Problem 143913713 Gastroesophageal reflux disease with esophagitis without hemorrhage (K21.00) Active confirmed Plan Of Treatment Future Test Test Name Order Date UPPER GI ENDOSCOPY 06/25/2018 COLONOSCOPY 06/25/2018 UPPER GI ENDOSCOPY 11/13/2021 Next Appt Details Provider Name:Johnathan Pantoja Rahat , 05/24/2025 03:20:00 PM, [address] [place] [address], [address], [place], [address], Insurance Providers Payer Name Payer Address Payer Phone Subscriber Number Group Number Insured Name Patient Relationship to Insured Coverage Start Date Coverage End Date MEDICARE OF [place] [address] [place] [id number] BENJAMIN KIDD Self - patient is the insured [employer] [address] [place] [address] [id number] BENJAMIN KIDD Self - patient is the insured Medical (General) History Medical History History ICD Code Screening colonoscopy 009--negative except for mild sigmoid diverticulosis and internal hemorrhoids Diverticulitis on CT scan 2015--treated with inpatient and outpatient antibiotics NIDDM Hyperlipidemia Denies AR,CVA,Lung disease,renal disease HTN Iron def anemia--EGD in [...]
--- OUTSIDE RECORDS SUMMARY | 2025-03-30 18:58 | XMS_ITS | Clinical Summary ---
Author Organization [facility] Address [address] [facility] [address] [place] [address] Phone Care Team Providers Care Reporting Coordinator Name Role Phone Giovanni Henriquez NP Primary Care Provider [phone] Allergies No known active allergies Medications atorvastatin [...] mouth 1 (one) time each day Active [place]-3 Fatty Acids (Fish Oil) 1000 MG capsule [...] age to complete this topic Insurance Medicare [facility] Medicare [facility] Care Teams Reporting Coordinator Relationship Specialty Start Date End Date Giovanni Henirquez NP [facility] [place] [address] PCP - General Nurse Practitioner 06/21/21
--- OUTSIDE RECORDS SUMMARY | 2025-03-30 18:58 | XMS_ITS | Patient Health Record ---
Author Organization [facility] Address [address] [place] [address] Care Team Providers Care Health Care Facility Administrator Name Role Phone Giovanni Choe Primary Care Provider Unav ailable Maurizio Rivas Unavailable [phone] Allergies No Known Allergies Reason For Referral [...] meal s Orally Twice a day Active [id number] Complex - as directed Orally 01/25/2024 Active [...] W/U Status Risk Notes Problem Plantar wart (43341213) Plantar wart (B07.0) Active confirmed Problem Type II diabetes mellitus without complication (333343715) Type 2 diabetes mellitus without complication (E11.9) Active confirmed Plan Of Treatment Pending Test Test Name Order Date [id number] Destruction, -02/05/2024 Insurance Providers Payer Name Payer Address Payer Phone Subscriber Number Group Number Insured Name Patient Relationship to Insured Coverage Start Date Coverage End Date Medicare [employer] [address] [place] [address] [id number] Michael Martinez Self - patient is the insured for [employer] [address] [place] [address] [id number] Michael Martinez Self - patient is the [...]
== END 2025-03-30 16:42 | disposition home or self-care (01) ==
LOC: HO.HVNA 16:41
PROVIDERS: Visit Provider Nurse Practitioner Family
DX: M86.171 Other acute osteomyelitis, right ankle and foot (principal)
CPT/HCPCS: 36415; 80048; 80076; 80202; 85025; 85652; 86140

== ENCOUNTER 2025-04-03 16:41 | Outpatient (REF) | payer MEDICARE, OTHER, SELFPAY ==
[2025-04-03 16:43] LABS: MANUAL DIFF FLAG NO
[2025-04-03 16:47] LABS: Hematocrit 37.6 % (42.0-52.0); Hemoglobin 12.6 g/dl (14.0-18.0); Imm Gran Abs Auto 0.02 X10*3/uL (0.00-0.03); Imm Gran Pct Auto 0.3 % (0.0-0.4); Lymphocytes Absolute Auto 1.5 X10*3/uL (1.2-4.9); Mean Corpuscular HGB Conc 33.5 g/dl (31.0-36.0); Mean Corpuscular Hemoglobin 26.6 pg (27.0-33.0); Mean Corpuscular Volume 79.5 fL (80.0-98.0); NRBC Abs Auto 0.000 X10*3/uL (0.0-0.012); NRBC Pct Auto 0.0 /100WBC (0.0-0.2); Platelet Count 243 X10*3/uL (160-400); Red Blood Count 4.73 X10*6/uL (4.60-5.80); White Blood Count 6.6 X10*3/uL (4.8-10.8)
[2025-04-03 17:34] LABS: Alanine Aminotransferase 27 U/L (0-40); Albumin Level 4.4 g/dL (3.5-5.0); Alkaline Phosphatase 65 U/L (39-117); Anion Gap 13 (12-20); Aspartate Amino Transferase 35 U/L (5-37); Blood Urea Nitrogen 40 mg/dL (9-16); Calcium 8.8 mg/dL (8.4-10.2); Carbon Dioxide 20 mmol/L (22-29); Chloride 109 mmol/L (96-108); Estimated Glomerular Filt Rate 44; Potassium 4.3 mmol/L (3.3-5.1); Sodium 138 mmol/L (135-145); Total Protein 6.5 g/dL (6.5-8.0)
--- OUTSIDE RECORDS SUMMARY | 2025-04-03 21:34 | XMS_ITS | Patient Health Record ---
Author Organization [facility] Address [address] [place] [address] Care Team Providers Care Health Information Provider Name Role Phone RICK RENE Primary Care Provider Johnathan John Unavailable [phone] Allergies No Known Allergies Reason For Referral [...] Problem Status W/U Status Risk Notes Problem 2471672 Diverticulitis o f large intestine without perforation or abscess without bleeding (K57.32) Active confirmed Problem 860988253 Encounter for screening for malignant neoplasm of colon (Z12.11) Active confirmed Problem 29918935 Iron deficiency anemia, unspecified iron deficiency anemia type (D50.9) Active confirmed Problem 714856267 Reflux esophagit is (K21.0) Active confirmed Problem 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 Problem 152870086 Colorectal cance r (C19) Active confirmed Problem 557918185 Méndez''s esoph lópez without dysplasia (K22.70) Active confirmed Problem 613769413 Gastroesophageal reflux disease with esophagitis without hemorrhage (K21.00) Active confirmed Plan Of Treatment Future Test Test Name Order Date UPPER GI ENDOSCOPY 06/25/2018 COLONOSCOPY 06/25/2018 UPPER GI ENDOSCOPY 11/13/2021 Next Appt Details Provider Name:Johnathan Pantoja Rahat , 05/24/2025 03:20:00 PM, [address] [place] [address], [address], [place], [address], Insurance Providers Payer Name Payer Address Payer Phone Subscriber Number Group Number Insured Name Patient Relationship to Insured Coverage Start Date Coverage End Date MEDICARE OF [place] [address] [place] [address] [id number] BENJAMIN KIDD Self - patient is the insured [employer] [address] [place] [address] [phone] [id number] BENJAMIN KIDD Self - patient is the insured Medical (General) History Medical History History ICD Code Screening colonoscopy 009--negative except for mild sigmoid diverticulosis and internal hemorrhoids Diverticulitis on CT scan 2015--treated with inpatient and outpatient antibiotics NIDDM Hyperlipidemia Denies [place],CVA,Lung disease,renal disease HTN Iron def anemia--EGD in [...]
--- OUTSIDE RECORDS SUMMARY | 2025-04-03 21:34 | XMS_ITS | Clinical Summary ---
Author Organization [facility] Address [address] [facility] [address] [place] [address] Phone Care Team Providers Care Bronze Chaser Name Role Phone Giovanni Henriquez NP Primary Care Provider [phone] Allergies No known active allergies Medications atorvastatin [...] mouth 1 (one) time each day Active Mina-3 Fatty Acids (Fish Oil) 1000 MG capsule [...] age to complete this topic Insurance Medicare [facility] Medicare [facility] Care Teams Bronze Chaser Relationship Specialty Start Date End Date Giovanni Henriquez NP [facility] [place] [address] PCP - General Nurse Practitioner 06/21/21
--- OUTSIDE RECORDS SUMMARY | 2025-04-03 21:35 | XMS_ITS | Patient Health Record ---
Author Organization [facility] René Michaelsley Address [address] [place] [address] Care Team Providers Care Seismic Survey Assistant Name Role Phone Giovanni Choe Primary Care Provider Unav ailable Maurizio Rivas Unavailable [phone] Allergies No Known Allergies Reason For Referral [...] meal s Orally Twice a day Active Wkbulf-Dzfvncyto-DZW Complex - as directed Orally 01/25/2024 Active [...] W/U Status Risk Notes Problem Plantar wart (29300975) Plantar wart (B07.0) Active confirmed Problem Type II diabetes mellitus without complication (867578371) Type 2 diabetes mellitus without complication (E11.9) Active confirmed Plan Of Treatment Pending Test Test Name Order Date 48968-Cohe Destruction, -02/05/2024 Insurance Providers Payer Name Payer Address Payer Phone Subscriber Number Group Number Insured Name Patient Relationship to Insured Coverage Start Date Coverage End Date Medicare [employer] [address] [place] [address] [id number] Michael Martinez Self - patient is the insured for [employer] [address] [place] [address] [phone] [id number] Michael Martinez Self - patient is the [...]
== END 2025-04-03 16:42 | disposition home or self-care (01) ==
LOC: HO.HVNA 16:41
PROVIDERS: Visit Provider Internal Medicine
DX: M86.171 Other acute osteomyelitis, right ankle and foot (principal)
CPT/HCPCS: 36415; 80048; 80076; 80202; 85025; 85652; 86140

== ENCOUNTER → 2025-04-21 23:59 | Outpatient (BNV) | payer MEDICARE, OTHER, SELFPAY | PROVIDERS: PCP Nurse Practitioner Family; Visit Provider Nurse Practitioner Family | DX: E11.69 Type 2 diabetes mellitus with other specified complication (principal); E11.40 Type 2 diabetes mellitus with diabetic neuropathy, unspecified | CPT/HCPCS: G0180 ==

== ENCOUNTER 2025-05-06 08:25 | Outpatient (REF) | payer MEDICARE, OTHER, SELFPAY ==
--- OUTSIDE RECORDS SUMMARY | 2025-05-06 08:28 | XMS_ITS | Clinical Summary ---
Author Organization [facility] Address [address] [facility] [address] [place] [address] Phone Care Team Providers Care Senior Teradata Developer Name Role Phone Giovanni Henriquez NP Primary Care Provider [phone] Allergies No known active allergies Medications atorvastatin [...] mouth 1 (one) time each day Active Media-3 Fatty Acids (Fish Oil) 1000 MG capsule [...] [facility] Medicare [facility] Care Teams Senior Teradata Developer Relationship Specialty Start Date End Date Giovanni Henriuqez NP [place] [address] PCP - General Nurse Practitioner 06/21/21
--- OUTSIDE RECORDS SUMMARY | 2025-05-06 08:28 | XMS_ITS | Data Portability ---
Author Organization ANDRADE [facility], [facility] Address [address] [place] [address] Care Team Providers Care Consumer Studies Professor Name Role Phone RICK RENE Primary Care Provider [phone] Assessment Encounter Date Assessment Date Assessment LastModified by Organization Details LastModified Time 12/09/2024 12/09/2024 CHIEF COMPLAINT: Follow-up right third toe HISTORY OF PRESENT ILLNESS: Michael is a very pleasant 69-year-old gentleman who is 3.5 months status post right third metatarsal shortening osteotomy and third PIP arthrodesis. He is doing well today. I last saw him 8 weeks ago. He suffered a right foot injury when he was bending down to hug his granddaughter on 10/13/2024. He reports feeling sudden pain about the right forefoot. He saw Nely CHAVEZ on 10/14/24 and had repeat x-rays. He is doing a lot better today. He denies any pain. His only concern is some residual swelling about the forefoot and third toe. He has been wearing regular sneakers and walking without pain. He is happy with his third toe alignment and his progress thus far. He denies any fevers, chills or paresthesias. Past family, medical, social history and review of systems has been reviewed and is located in the patient s chart. No interval change. PHYSICAL EXAM: General: healthy appearing, in no acute distress Psych: alert and oriented x3, normal mood Skin: intact without ulceration or lesion, normal turgor Lungs: respirations unlabored Cardiac: heart rate regular, normal peripheral pulses Musculoskeletal: With sneaker removed, his right forefoot is well aligned. There is mild residual swelling about the right forefoot and third toe. He is mildly tender about the third PIP joint as well as the distal third metatarsal. There is some palpable bony callus about the distal third metatarsal. Hardware is not prominent or tender. He has good range of motion of his lesser MTP joints. There is no gross motion about the third PIP joint. He is distally neurovascularly intact. X-RAYS: Three standing views of the right foot were ordered, obtained and reviewed by me today at [facility], demonstrating interval healing of his osteotomy and arthrodesis. His forefoot is well aligned. His relative lesser metatarsal lengths are appropriate. There appears to be some interval shortening of the third metatarsal with new bone formation and probable partial loss of fixation related to his injury and late September. There is incomplete healing of his third PIP joint. IMPRESSION: 3.5 months postop, doing well PLAN: He is doing well at this time. I would recommend continued observation. I believe his swelling will subside with time. I encourage supportive shoe wear and activity as tolerated. He will follow up with us in 2 months for reevaluation with repeat x-rays to assess alignment and healing. All questions were answered. [email or web address] Not available 12/09/2024 10:48:59 02/10/2025 02/10/2025 CHIEF COMPLAINT: Follow-up right third toe HISTORY OF PRESENT ILLNESS: Michael is a very pleasant 69-year-old gentleman who is 5.5 months status post right third metatarsal shortening osteotomy and third PIP arthrodesis. He is doing well today. I last saw him 8 weeks ago. We recall that he suffered a right foot injury when he was bending down to hug his granddaughter on 10/13/2024. He continues to improve. He reports 2/10 pain over his dorsal forefoot and the lateral band of the plantar fascia over his plantarlateral foot. His only concern is some residual swelling about the forefoot and third toe, which has improved. He has been wearing regular sneakers and walking without pain. He is happy with his third toe alignment and his progress thus far. He denies any fevers, chills or paresthesias. His plantar callus is resolved and he denies any plantar forefoot pain. Past family, medical, social history and review of systems has been reviewed and is located in the patient s chart. No interval change. PHYSICAL EXAM: General: healthy appearing, in no acute distress Psych: alert and oriented x3, normal mood Skin: intact without ulceration or lesion, normal turgor Lungs: respirations unlabored Cardiac: heart rate regular, normal peripheral pulses Musculoskeletal: With sneaker removed, his right forefoot is well aligned. There is mild residual swelling about the right forefoot and third toe. There is mild elevation of the second and third toes. He is mildly tender about the dorsal distal third metatarsal where there is some palpable callus formation. He has good range of motion of his lesser MTP joints. There is no gross motion about the third PIP joint. He is distally neurovascularly intact. He is mildly tender along the lateral band of the plantar fascia. X-RAYS: Three standing views of the right foot were ordered, obtained and reviewed by me today at [facility], demonstrating interval healing of his osteotomy and arthrodesis. His forefoot is well aligned. His relative lesser metatarsal lengths are appropriate. There appears to be some interval shortening of the third metatarsal with new bone formation and probable partial loss of fixation related to his injury and late September. There is incomplete healing of his third PIP joint with fibrous union. IMPRESSION: 5.5 months postop, doing well PLAN: He is doing well at this time. I believe he has some lateral band plantar fasciitis. His plantar forefoot pain has resolved and he is quite happy about this. He may continue with activity and shoe wear as tolerated, erring on the side of wearing more supportive shoes. I believe his swelling will continue to subside with time. He will follow up with me as needed if any problems arise in the future. All questions were answered. [email or web address] Not available 02/10/2025 08:45:37 04/13/2025 04/13/2025 69-year-old male presents today in follow-up status post right third toe hammertoe correction on August 24, 2024 with subsequent possible development of osteomyelitis Who has a planned surgery for removal hardware and cultures on April 21, 2025. he presents today for a wound check after his PICC line was discontinued on April 05. He demonstrates no active signs of significant infection based on his exam today, with minimal tenderness no erythema and no new wounds present. I called and reviewed the case today with Dr. Cifuentes. At this point would recommend holding off on beginning antibiotics to minimize risk of this compromising the results of intraoperative cultures. He will monitor his foot closely for any worsening pain erythema or new wounds present, and instructed him to contact our office immediately for further evaluation should this occur. He will be seen next on his previously scheduled date of surgery on April 21 unless there are any issues. [email or web address] Not available 04/13/2025 10:40:50 Plan of Treatment Reminders Order Date Submit Date Provider Last Modified By Organization Details Last Modified Time Details Appointments POST OP 15 2024 11:00A M Moo Zacarias PA-C Not available Not available Not available POST OP 15 2024 12:30P M Reza Cifuentes MD Not available Not available Not available Lab None recorded. Referral None recorded. Procedures None recorded. Surgeries orthopaed ic surgery (SURG) 2024 025 [email or web address] [facility], [address], [place], [address], 04/20/2025 08:51:35 Imaging XR, foot, 3 or more view 2024 [email or web address] [facility], [address], [place], [address], 03/28/2025 08:41:16 XR, foot, 3 or more view - RECHECK PT 3 VIEWS RIGHT FOOT WB RM 107 [email or web address], [address], [address], [place], [address], 02/21/2025 13:06:45 XR, foot, 3 or more view - RM 107 R FOOT 3V WB 2024 025 [facility], [address], [address], [place], [address], 12/20/2024 09:38:01 Medication Orders None recorded. Patient TargetsNo targets recorded. Patient InstructionsNo instructions recorded. Reason for Referral None Reported. Results Created Date Observation Date Name Description Value Unit Range Abnormal Flag Note LastModifiedBy Organization Detail LastModifiedTime 12/10/1912/09/2024 XR, foot, 3 or more view http:/ [email or web address] ?Encry pted=s hAaTro YD8dLq bEUv6g %2BXZw aYqtaq 0bqfl% 2Fg9IQ a4ajBk vP9nXo QUaueC m3YtLR FvZlgJ JJ8mAn HZtai3 4j1188 AC0Kla 3mNU6C hKiQtr MwF INTERFACE [facility] [address], [place], [address], 12/09/2024 10:21:53 12/10/19 25 12/09/2024 XR, foot, 3 or more view http:/ [email or web address] ?Encry pted=s hAaTro YD8dLq bEUv6g %2BXZw aYqtaq 0bqfl% 2Fg9IQ a4ajBk vP9nXo QUaueC m3YtLR FvZl [facility] HZtai3 0z2881 AC0Kla 3mNU6C hKiQtr MwF INTERFACE [facility] [address] [facility] [address] [facility] [address], [place], [address], 12/09/2024 10:21:55 02/11/20 25 02/10/2025 XR, foot, 3 or more view http:/ [email or web address] ?Encry pted=s hAaTro YD8dLq bEUv6g %2BXZw aYqtaq 0bqfl% 2Fg9IQ a4ajBk vP9nXo QUaueC m3YtLR FvZlg JJ8mAn HZtai3 6z2678 AC0Klb nyMVaK hKiQtr MwF INTERFACE [facility] [address] [facility] [address] [facility] [address], [place], [address], 02/10/2025 08:29:36 02/11/20 25 02/10/2025 XR, foot, 3 or more view http:/ [email or web address] ?Encry pted=s hAaTro YD8dLq bEUv6g %2BXZw aYqtaq 0bqfl% 2Fg9IQ a4ajBk vP9nXo QUaueC m3YtLR Zlg JJ8mAn HZtai3 4i5010 AC0Klb nyMVaK hKiQtr MwF INTERFACE [facility] [address] [facility] [address], [place], [address], 02/10/2025 08:29:37 03/28/2003/28/2025 XR, foot, 3 or more view http:/ [email or web address] ?Encry pted=s hAaTro YD8dLq bEUv6g %2BXZw aYqtaq 0bqfl% 2Fg9IQ a4ajBk vP9nXo QUaueC m3YtLR FvZl [facility] HZtai3 4z0603 AC0Klb HyHWaS mKiQtr MwF INTERFACE [facility] [address] [facility], [place], [address], 03/28/2025 08:40:53 03/28/2003/28/2025 XR, foot, 3 or more view http:/ [email or web address] ?Encry pted=s hAaTro YD8dLq bEUv6g %2BXZw aYqtaq 0bqfl% 2Fg9IQ a4ajBk vP9nXo QUaueC m3YtLR Zl [facility] HZtai3 6t1139 AC0Klb HyHWaS mKiQtr MwF INTERFACE [facility] [address] [facility], [place], [address], 03/28/2025 08:40:55 03/28/2003/23/2025 XR, toe(s ), 2 or more view No observ ation record ed. BARCODE Not Available 2024 10:34:00 Result Notes Documentation Provider Name and Address Organization Details Recorded Time Xr, Foot, 3 Or More View : [email or web address]? Encrypted=ikMkDmwET9aBnxD Uv6g%3LHCxyNdzxs5bdzf%2Fg 3QLw2leGngA9nWsDAcxrGk4Wc FYRuHqcVZF5eAvKUbmv86i467 1VJ0Ykr4kYD3TmBvHgsAwK Not Available [facility] 12/09/2024 10:21: 54 Xr, Foot, 3 Or More View : [email or web address]? Encrypted=ioFwLhhAT0sFvzM Uv6g%5VNLdtBzafu5vfjg%2Fg 1YJz1sgPomR6dDlWRemhFo3Mi EJRiVslMQT5mFuDKrkg20t807 4UE3Gyx3yWH6ZhXvBnyMoU Not Available [facility] 12/09/2024 10:21: 55 Xr, Foot, 3 Or More View : [email or web address]? Encrypted=agEcEveVK2sOyyM Uv6g%5ZMBbeTxkzt9aamn%2Fg 8CJr3sgIslD0xGnCEvlmQh9Rv LQFgZjtBGF3aRnSZoza98i275 1FV2XxalaWAxAjVjUerFzB Not Available [facility] 02/10/2025 08:29: 37 Xr, Foot, 3 Or More View : [email or web address]? Encrypted=oaGwNefPX9qHflX Uv6g%2FSYldAffrc9yugs%2Fg 1QEl0uaHihG5zNjBRfvbJj2Wy RKRyBtfKFK5nNsSWxxw04v218 6PN0MtskaICcRbMgWnuYrF Not Available [facility] 02/10/2025 08:29: 38 Xr, Foot, 3 Or More View : [email or web address]? Encrypted=ozVkBrzYU8sXlzK Uv6g%0JEGaqOavdv9ewhu%2Fg 3VUg0taDnwL9aLqRUvknJo6Vp PDHiGbhUOW7yPrZDtlg89k372 7FG1HmdLhAXrRyPfMslNoN Not Available [facility] 03/28/2025 08:40: 54 Xr, Foot, 3 Or More View : [email or web address]? Encrypted=waSlZfpHR0vYemG Uv6g%3ACMabJpjil9ncdr%2Fg 8GWe0lxExhL3eDzLCtryVb5Ce VLXcWzpXWK2iIhGRjyq51y923 0UL3WnzJzTEgUbCkYlpOgY Not Available [facility] 03/28/2025 08:40: 55 Problems Name Problem SNOMED Code Status Onset Date Resolution Date Notes Provider Name and Address Organization Details Recorded Time No complaints 791513912 Active Status : 'A'; Not Available [facility] 4 09:25:07 Hammer toe 887769656 Active 2024 West Valle[place] PA-C [address], [place], [address] , [facility] 5 08:09:18 Osteomyeli tis of right foot 8263549140647 100 Active 2024 West Vallejo PA-C [address], [place], [address] , [facility] 5 08:09:35 Problem Notes None recorded. Procedures Surgical History Date Name Laterality Status Provider Name and Address Organization Details Recorded Time Knee Surgery completed FRANKIE MARTINEZ [facility] 08/04/2024 13:45:02 Shoulder Surgery completed FRANKIE MARTINEZ [facility] 08/04/2024 13:45:02 Ankle/Foot Surgery completed FRANKIE MARTINEZ [facility] 08/04/2024 13:45:02 Hand Surgery completed FRANKIE MARTINEZ [facility] 08/04/2024 13:45:02 Head or Neck Surgery completed FRANKIE MARTINEZ [place] [facility] [place] [facility] 08/04/2024 13:45:02 Imaging Results None recorded. Procedure Notes None recorded. Medical Equipment None Reported. Allergies No known drug allergies Medications Name Sig Start Date Stop Date Status Note LastModified by Organization Details LastModified Time atorvastati n 20 mg tablet TAKE ONE TABLET BY MOUTH EVERY DAY active Not Available Not Available No t Available sildenafil 25 mg tablet 1 tablet as needed by oral route. active Not Available Not Available No t Available acetaminoph en 500 mg tablet TAKE TWO TABLETS BY MOUTH EVERY 8 HOURS active Not Available Not Available No t Available pentoxifyll ine ER 400 mg tablet,exte nded release TAKE ONE TABLET BY MOUTH TWICE A DAY 10/14 completed Not Available Not Available Not Available aspirin 325 mg tablet,minerva yed release TAKE ONE TABLET BY MOUTH EVERY DAY FOR 14 DAYS active Not Available Not Available No t Available tamsulosin 0.4 mg capsule TAKE ONE CAPSULE BY MOUTH DAILY AT BEDTIME 10/14 completed Not Available Not Available Not Available metformin 1,000 mg tablet TAKE ONE TABLET BY MOUTH TWICE A DAY active Not Available Not Available No t Available lisinopril 10 mg tablet TAKE ONE TABLET BY MOUTH EVERY DAY active Not Available Not Available No t Available lidocaine 5 % topical patch LEAVE ON MOST PAINFUL AREA FOR UP TO 12 HOURS NEEDED FOR PAIN active Not Available Not Available No t Available omeprazole 20 mg capsule,del ayed release TAKE ONE CAPSULE BY MOUTH EVERY MORNING active Not Available Not Available No t Available ammonium lactate 12 % topical cream APPLY EXTERNALL Y TO AFFECTED AREA S) TWO TIMES A DAY 10/14 completed Not Available Not Available Not Available hydrochloro thiazide 25 mg tablet TAKE ONE TABLET BY MOUTH EVERY DAY active Not Available Not Available No t Available fluticasone propionate 50 mcg/actuati on nasal spray,suspe nsion USE 1 SPRAY IN EACH NOSTRIL TWO TIMES A DAY 10/14 completed Not Available Not Available Not Available cholecalcif rosalinda (vitamin D3) 125 mcg (5,000 unit) capsule TAKE ONE CAPSULE BY MOUTH EVERY DAY FOR 30 DAYS 11/10 completed Not Available Not Available Not Available amoxicillin 875 mg-potassiu m clavulanate 125 mg tablet TAKE 1 TABLET BY MOUTH TWICE A DAY 10/14 completed Not Available Not Available Not Available oxycodone 5 mg tablet Take 1 tablet every 4-6 hours by oral route for 2 days. 05/04 completed Not Available Not Available Not Available Bactrim DS 800 mg-160 mg tablet Take 1 tablet every 12 hours by oral route for 7 days. 04/25 completed Not Available Not Available Not Available tadalafil 5 mg tablet TAKE ONE TABLET BY MOUTH EVERY DAY active Not Available Not Available No t Available oxycodone HCl-oxycodo ne-ASA 1Q 4-[address] WHILE ON THIS MEDICATIO N 07/29 completed Statu s: 'Curr ent'; Not Available Not Available Not Available Vitamin D3 125 mcg (5,000 unit) tablet Take 1 tablet every day by oral route for 30 days. 10/04 completed Not Available Not Available Not Available vitamin E (dl, acetate) 450 mg (1,000 unit) capsule TAKE ONE CAPSULE BY MOUTH EVERY DAY active Not Available Not Available No t Available Trulicity 1.5 mg/0.5 mL subcutaneou s pen injector 10/14 completed Not Available Not Available Not Available Trulicity 3 mg/0.5 mL subcutaneou s pen injector active Not Available Not Available Not Available Vitals Date Recorded Body height Body mass index (BMI) Body weight Provider Name and Address Organization Details Last Updated DateTime 11/15/2024 185.42 cm 25.7 kg/m2 10151.51 g VERENICE PEARSON [facility] 11/15/2024 10:36:56 Date Recorded Body height Body mass index (BMI) Body weight Provider Name and Address Organization Details Last Updated DateTime 12/09/2024 185.42 cm 25.7 kg/m2 48864.51 g ILAN BAZAN [facility] 12/09/2024 10:14:49 Date Recorded Body height Body mass index (BMI) Body weight Provider Name and Address Organization Details Last Updated DateTime 02/10/2025 185.42 cm 25.7 kg/m2 48561.51 g Zonia Fox [facility] 02/10/2025 08:21:05 Date Recorded Body height Body mass index (BMI) Body weight Provider Name and Address Organization Details Last Updated DateTime 03/28/2025 185.42 cm 25.7 kg/m2 31799.51 g SHABANA JOSEE [facility] 03/28/2025 08:31:29 Date Recorded Body height Body mass index (BMI) Body weight Provider Name and Address Organization Details Last Updated DateTime 04/13/2025 185.42 cm 25.7 kg/m2 16964.51 g Porter Palomares [facility] 04/13/2025 09:28:55 Social History Question Answer Notes LastModified by Data[employer] Details LastModified Time Tobacco Smoking Status Never Smoker FRANKIE fontana [facility] 08/04/2024 13:45:01 What Is Your Relationship Status? Information not available 08/04/2024 How Many Years Have You Smoked Tobacco? 0 Information not available 08/04/2024 Sex: Unknown Functional Status Question Answer Note LastModified by Data[employer] Details LastModified Time How many times per week do you consume alcohol? Less than 1 time per week Information not available 08/04/2024 Do you use any illicit or recreational drugs? No Information not available 08/04/2024 Do you or have you ever used any other forms of tobacco or nicotine? No Information not available 08/04/2024 Do you or have you ever used e-cigarettes or vape? Never used electronic cigarettes Information not available 08/04/2024 Mental Status None recorded. Family History Nothing Reported. Medical History Condition Response Diabetes Y Past Encounters Encounter ID Performer Location Encounter Start Date Encounter Closed Date Diagnosis/Indication Diagnosis SNOMED-CT Code Diagnosis ICD10 Code Diagnosis IMO Codes Diagnosis Note MD [facility] [address] [place] [address] 08/04/2024 13:17:57 08/16/2024 08:21:01 Pain in bilateral feet 1730344904 5056403 M79.671 M79.672 99394149 Pain in right foot 54225 30515 43023 M79.671 526479 Bilateral metatarsalgia 7193631086 0561420 M77.41 M77.42 [id number] Hammer toe 921422688 M20 .41 M20.42 [id number] Oanh Prado PA-C [facility] [address] [place] [address] 09/06/2024 14:49:25 09/19/2024 14:52:15 Hammer toe 722729654 M20.41 [id number] [id number] MD [facility] [address] [place] [address] 10/04/2024 10:25:01 10/17/2024 10:39:11 Pain in right foot 2248309084 24927 M79.671 849390 Postoperative visit 9012 73402 Z48.89 [id number] NELY RIVAS PA-C [facility] [address] [place] [address] 10/14/2024 13:39:16 10/26/2024 14:20:41 Pain in right foot 2717243009 66162 M79.671 509812 [id number] [facility] [address] [place] [address] 11/15/2024 10:22:57 11/22/2024 08:52:36 Hammer toe 070575974 M20.41 [id number] MD [facility] [address] [place] [address] 12/09/2024 09:51:37 12/20/2024 09:38:00 Pain in right foot 8880916430 34570 M79.671 [id number] Follow-up orthopedic assessment 227579181 Z47.89 [id number] [id number] MD [facility] [address] [place] [address] 02/10/2025 08:16:29 02/21/2025 13:06:45 Pain in right foot [id number] [facility], [facility] M79.671 600261 Follow-up orthopedic assessment 732194786 Z47.89 [id number] Oanh Prado PA-C [facility] [address] [place] [address] 03/28/2025 08:21:55 04/05/2025 11:04:53 Pain in right foot 0795417785 61039 M79.671 545646 Hammer toe 492207998 M20 .41 [id number] [place] PA-C [facility] [address] [place] [address] 04/13/2025 09:21:46 04/24/2025 09:20:15 Hammer toe 971953394 M20.41 85095432 Osteomyeli tis of right foot 9929824883 647685 M86.9 [id number] Health Concerns Section Related Observation LastModified by Organization Detai ls LastModified Time None Recorded Concern Status LastModified by Organization Details LastModified Time None Recorded Advance Directives Directive None Recorded Payers Insurance Date Sequence Insurance Name Policy Number Policy Haney Covered Member ID Haney Member ID Guarantor Name 05/03/2025 1 [place]: [employer] Michael Martinez [id number] Michaelolamide Martinez 05/06/2025 2 FOR LIFE ( - MEDICARE SUPPLEMENT) Michael Martinez [id number] [facility] 05/03/2025 NORIDIAN - SPECIALITY CLAIMS (MEDICARE DME REGION A) Michael Martinez [id number] [facility] Notes Date Note Type Note Provider Name and Address Organization Details Recorded Time 11/15/2024 text/html I am seeing this patient under the supervision of Dr. Cifuentes, who was available but who did not see the patient. Chief Complaint: Right third toe swelling and redness HPI: Patient is a pleasant 68-year-old male presents in office today in follow-up for right third toe swelling redness and pain. Patient underwent hammertoe correction with Esau Hauser 09/24/2024. He presents today with no redness no pain in the third toe or digit. He states he is back to normal activities is able to wean himself back out of the postoperative sandal. States the pain today 0 out of 10. He does feel like the swelling in the foot and toe has gone down overall however he does have some continued swelling into the third toe. States that he has been wearing more stiff and soled shoes which has helped overall and his gait has improved. Denies any interval trauma. PFMSH, Meds and ROS reviewed, updated and signed by me, and is located in the patient's chart.PHYSICAL EXAMINATION: The patient is well appearing and in no apparent distress. Alert and oriented x 3. On seated examination today patient has observable edema throughout the third toe. There is no notable erythema or ecchymosis. He is not tender palpation along the third MTP joint or distal digits. Patient digital range of motion remains intact. Active ankle range of motion is intact in all 4 planes of motion. Patient is able to activate against resistance in extension and flexion of all digits. Sensory exam- reports sensation intact to light touch SP/DP/S/S/T distributions Palpable DP/PT pulses, foot warm and well perfused, appropriate capillary refill Calf is soft, supple, non-tender IMPRESSION: Acute injury pushing off through the toe causing screw in the third metatarsal head to back out somewhat patient has no pain overall doing well and stable in office today. PLAN: Discussed the findings and situation with the patient today. Patient overall doing well do not feel that follow-up x-rays are needed at appointment today he does have a follow-up with Dr. Marcus on 12/09/2024 where x-rays will likely be repeated at that point. Discussed with the patient to continue to keep an eye on his swelling and if there is any increased onset of pain he should call the office to be seen sooner than that next postoperative appointment. [employer] speech recognition banking manager software was used to create portions of this document. An attempt at proofreading has been made to minimize errors. Please call for corrections. NELY RIVAS PA-C [address], [place], [address], [facility] - [facility] 11/15/2024 10:48:10 12/09/2024 text/html ROS as noted in the HPI Reza Cifuentes MD [address], [place], [address], [facility] 12/09/2024 10:49:22 02/10/2025 text/html ROS as noted in the HPI Reza Cifuentes MD [address], [place], [address], [facility] 02/10/2025 08:54:06 03/28/2025 text/html I am seeing this patient under the supervision of Dr. Cifuentes, who was available but who did not see the patient. HPI: Patient is a 69-year-old male presents today about 7 months status post right third metatarsal shortening osteotomy and third PIP arthrodesis. He was last seen by Dr. Cifuentes on 02/10/2025. He was doing well at that time. He tells me that on 03/22/2025 he noticed a blood blister around the toenail and noticed that the toe was swollen. He is unsure if he had any trauma to the toe. He continued to have swelling over the toe and over the dorsum of the foot in the area of the third metatarsal head. He was seen at urgent care where there was concern for osteomyelitis. He was sent to [facility]. He was seen at [facility] and x-rays were concerning for osteomyelitis and loosening of the third metatarsal screw. He was admitted and there was concern that he had a small pustule over the third metatarsal head. He was seen by orthopedics at [facility] and by infectious disease. Per infectious disease note he was started on vancomycin and a PICC line was placed and he was instructed on vancomycin for 6 weeks. There was concern again for osteomyelitis. He presents today for further evaluation of this. He states that since being on vancomycin his swelling and redness has improved. Denies any interval trauma. Denies any fevers, chills, or paresthesias. PFMSH, Meds and ROS reviewed, updated and signed by me, and is located in the patient's chart. PHYSICAL EXAMINATION: The patient is well appearing and in no apparent distress. Alert and oriented x 3. Examination of his right foot demonstrates mild edema about the third toe and forefoot in the area of the third metatarsal head. No surrounding erythema. No drainage. No pustule noted. He has good lesser MTP range of motion. Calf soft, nontender. Sensation decreased at baseline in the right lower extremity. RADIOLOGY: X-rays were ordered, obtained, and reviewed today in our office. 3 views of the right foot demonstrate interval healing of his osteotomy and arthrodesis. He may have had some loss of fixation of the third metatarsal osteotomy but this appears chronic when compared to previous x-rays. There is incomplete healing of his third PIP joint with fibrous union which is consistent with previous x-rays. On lateral view he has some displacement of the third metatarsal screw however unsure if this is changed when compared to x-rays from January. IMPRESSION: About 7 months status post surgery as above, loss of fixation in the third metatarsal head with possible hardware complication, possible osteomyelitis PLAN: Discussed the findings and situation with the patient today. Had a long discussion with the patient today and reviewed his notes from [facility]. I reviewed the case with Dr. Cifuentes as well. He is leaving for vacation next week. Advised him to continue with his IV antibiotics as he seems to be stable at this time. We will plan to proceed with surgery in the next few weeks to include removal of third metatarsal screw and bone culture as needed. He was given a prescription for a new postoperative sandal today. Call with questions or concerns. The patient is ambulatory, but has weakness and/or instability of their extremity which requires stabilization from this semi-rigid/rigid orthosis to improve their function. Verbal and written instructions for the use and application of this item were given. Patient was instructed that should the brace result in increased pain, decreased sensation, increased swelling or an overall worsening of their medical condition, to please contact our office immediately. Oanh Prado PA-C [address] [address], [place], [address], [facility] 03/30/2025 15:18:02 04/13/2025 text/html ROS as noted in the HPI I am seeing this patient under the supervision of Dr. Morley who was available but who did not see the patient Attending: Dr. Guerra Complaint: Follow-up evaluation status post right third toe hammertoe correction on August 24, 2024 with subsequent development of osteomyelitis HPI: 69-year-old male presents today in follow-up status post right third toe hammertoe correction on August 24, 2024 with subsequent development of osteomyelitis. He has a planned surgery on April 21, 2025 with hardware removal and possible cultures. He has been treated by [facility] infectious disease with vancomycin via PICC line which was started on March 23, 2025 and discontinued on April 05 due to patient going on a vacation. He presents today for a wound check. He denies any significant pain of the foot. Denies any new wounds present, and denies any erythema. [place] PA-C [address] [facility], [place], [address], [facility] 04/13/2025 10:41:02
--- OUTSIDE RECORDS SUMMARY | 2025-05-06 08:29 | XMS_ITS | Patient Health Record ---
Author Organization [facility] René Michaelsley Address [address] [place] [address] Care Team Providers Care Manager Paid Name Role Phone Giovanni Choe Primary Care Provider Unav ailable Maurizio Rivas Unavailable [phone] Allergies No Known Allergies Reason For Referral [...] meal s Orally Twice a day Active Ofjkia-Gntngfclk-WEC Complex - as directed Orally 01/25/2024 Active [...] W/U Status Risk Notes Problem Plantar wart (42472561) Plantar wart (B07.0) Active confirmed Problem Type II diabetes mellitus without complication (268236110) Type 2 diabetes mellitus without complication (E11.9) Active confirmed Plan Of Treatment Pending Test Test Name Order Date [id number] Destruction, -02/05/2024 Insurance Providers Payer Name Payer Address Payer Phone Subscriber Number Group Number Insured Name Patient Relationship to Insured Coverage Start Date Coverage End Date Medicare National Govt Svcs Inc [address] [place] [address] [id number] Michael Martinez Self - patient is the insured for [employer] [address] [place] [address] [phone] [id number] Michael Martinez Self - patient is the [...]
--- OUTSIDE RECORDS SUMMARY | 2025-05-06 08:29 | XMS_ITS | Patient Health Record ---
Author Organization [facility] Address [address] [place] [address] Care Team Providers Care Patient Observer Name Role Phone RICK RENE Primary Care Provider Johnathan John Unavailable [phone] Allergies No Known Allergies Reason For Referral [...] CAPSULE BY MOUTH EVERY DAY IN THE MORNING; Duration: 90 Active Trulicity 1.5 MG/0.5ML as directed [...] Problem Status W/U Status Risk Notes Problem Diverticulitis of colon (675313607) Diverticulitis of large intestine without perforation or abscess without bleeding (K57.32) Active confirmed Problem Screening for malignant neoplasm of colon (547590871) Encounter for screening for malignant neoplasm of colon (Z12.11) Active confirmed Problem Iron deficiency anemia (05530314) Iron deficiency anemia, unspecified iron deficiency anemia type (D50.9) Active confirmed Problem Reflux esophagitis (087874971) Reflux esophagitis (K21.0) Active confirmed Problem Méndez esophagus (279210942) 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 Problem Colorectal cancer (7443282916) Colorectal cancer (C19) Active confirmed Problem Méndez's esophagus (802349758) 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 Problem Gastroesophageal reflux disease with esophagitis (disorder) (641195145) Gastroesophageal reflux disease with esophagitis without hemorrhage (K21.00) Active confirmed Plan Of Treatment Future Test Test Name Order Date UPPER GI ENDOSCOPY 06/25/2018 COLONOSCOPY 06/25/2018 UPPER GI ENDOSCOPY 11/13/2021 Next Appt Details Provider Name:Johnathan Giang , 05/24/2025 03:20:00 PM, [address] [place] [address], [facility], [place], [address], Insurance Providers Payer Name Payer Address Payer Phone Subscriber Number Group Number Insured Name Patient Relationship to Insured Coverage Start Date Coverage End Date MEDICARE OF [place] [address] [place] [address] [id number] BENJAMIN KIDD Self - patient is the insured [employer] [address] [place] [address] [phone] [id number] BENJAMIN KIDD Self - patient is the insured Medical (General) History Medical History History ICD Code Screening colonoscopy 009--negative except for mild sigmoid diverticulosis and internal hemorrhoids Diverticulitis on CT scan 2015--treated with inpatient and outpatient antibiotics NIDDM Hyperlipidemia Denies DC,CVA,Lung disease,renal disease HTN Iron def anemia--EGD in [...]
[2025-05-06 09:24] LABS: MANUAL DIFF FLAG NO
[2025-05-06 10:05] LABS: Hematocrit 44.3 % (42.0-52.0); Hemoglobin 14.5 g/dl (14.0-18.0); Imm Gran Abs Auto 0.02 X10*3/uL (0.00-0.03); Imm Gran Pct Auto 0.3 % (0.0-0.4); Lymphocytes Absolute Auto 1.5 X10*3/uL (1.2-4.9); Mean Corpuscular HGB Conc 32.7 g/dl (31.0-36.0); Mean Corpuscular Hemoglobin 26.8 pg (27.0-33.0); Mean Corpuscular Volume 81.7 fL (80.0-98.0); NRBC Abs Auto 0.000 X10*3/uL (0.0-0.012); NRBC Pct Auto 0.0 /100WBC (0.0-0.2); Platelet Count 251 X10*3/uL (160-400); Red Blood Count 5.42 X10*6/uL (4.60-5.80); White Blood Count 6.1 X10*3/uL (4.8-10.8)
[2025-05-06 10:50] LABS: Alanine Aminotransferase 35 U/L (0-40); Albumin Level 4.6 g/dL (3.5-5.0); Alkaline Phosphatase 65 U/L (39-117); Anion Gap 15 (12-20); Aspartate Amino Transferase 31 U/L (5-37); Blood Urea Nitrogen 33 mg/dL (9-16); Calcium 9.3 mg/dL (8.4-10.2); Carbon Dioxide 24 mmol/L (22-29); Chloride 107 mmol/L (96-108); Cholesterol 140 mg/dL (<200); Estimated Glomerular Filt Rate 50; HDL Cholesterol 39 mg/dL (>40); Potassium 4.2 mmol/L (3.3-5.1); Sodium 142 mmol/L (135-145); Total Protein 6.8 g/dL (6.5-8.0); Triglycerides 78 mg/dL (<150)
[2025-05-06 10:52] LABS: Appearance Urine Clear; Glucose Urine UA Negative (Negative); PH 5.5 (5.0-9.0); Specific Gravity - Urine 1.020 (1.005-1.025)
[2025-05-06 11:12] LABS: PSA,Total (Free>4and<10) 2.24 ng/mL (0.00-4.00)
== END 2025-05-06 08:26 | disposition home or self-care (01) ==
LOC: HO.LAB 08:25
PROVIDERS: Absent Provider Nurse Practitioner Family; PCP Nurse Practitioner Family; Visit Provider Urology
DX: E11.9 Type 2 diabetes mellitus without complications (principal); Z12.5 Encounter for screening for malignant neoplasm of prostate
CPT/HCPCS: 36415; 80053; 80061; 81003; 84153; 84443; 85025

== ENCOUNTER 2025-05-08 11:14 | Outpatient (AMB) | payer MEDICARE, OTHER, SELFPAY ==
--- NOTE | 2025-05-08 11:19 | A.OFFPC_ITS ---
Vital Signs 05/08/25 11:26 Height 5 ft 6 in Weight 197 lb BMI 31.8 BP 126/76 Blood Pressure Location Lt brachial Position Sitting Respiration 16 Pulse 67 Pulse Source Pulse Oximeter Pulse Oximetry (%) 98 Oxygen Delivery Method Room Air Intake Visit Reasons: 6 months f/up [employer] Stenographer Required: No Accompanied by: Self / Same As Patient Allergies No Known Allergies (No Known Allergies*) Allergy (Verified 05/08/25 13:49) Medication List - Last Reconciled 05/08/25 by OVI Lai atorvastatin 20 mg PO BEDTIME blood sugar diagnostic (FreeStyle Lite Strips) As directed three times a day cetirizine (All Day Allergy (cetirizine)) 10 mg PO DAILY PRN dulaglutide (Trulicity) 3 mg (0.5 mL) subcut QWEEK ferrous sulfate 325 mg PO BEDTIME fluticasone propionate 50 mcg/actuation 1 spray intranasal BID PRN hydrochlorothiazide 25 mg PO DAILY lancets (FreeStyle Lancets) As directed three time a day lisinopril 10 mg PO DAILY metformin 1,000 mg PO BID multivitamin 1 tab PO BEDTIME omeprazole 20 mg PO DAILY@0630 pentoxifylline ER 400 mg PO BID 90 days tadalafil (Cialis) 5 mg PO DAILY PRN vancomycin in 0.9 % sodium chl 1 gram/250 mL 1 g (250 mL) IV Q12H vitamin E (dl, acetate) 450 mg PO DAILY 90 days Tobacco use date assessed: 05/08/25 Fall risk assessment: No Falls in past year Last assessed Fall Risk: 05/08/25 Dental Screening Dental Screen Date: 05/08/25 Did you have a dental visit in the last 12 months?: Yes Did you have a dental problem in the last 6 months where you did not have access to dental care?: No Was dental information given to patient?: Patient has dentist HPI 6 months f/up HPI Details Chief Complaint The patient presents for follow-up after a suspected osteomyelitis of the right foot. History of Present Illness The patient is a 69-year-old male presenting with a follow-up for a previous osteomyelitis scare of the right foot. Initially, there was concern for osteomyelitis in the toes of the right foot, leading to a course of intravenous antibiotics for a couple of weeks. During this treatment, the patient's creatinine levels increased, prompting close monitoring and encouragement to maintain adequate hydration. The patient underwent a procedure on April 26 to remove a screw from his foot, and biopsies were performed, which showed no signs of osteomyelitis. He reported a blister on the top of his foot, from which he removed a large piece of thread, possibly contributing to the initial concern. Currently, the incision is well approximated with intact sutures and no signs of infection. The patient has a history of diabetes mellitus, as indicated by an A1c of 6.7, and he is scheduled for follow-up laboratory tests to monitor his creatinine levels and other parameters. Social History Health Maintenance - Diabetes management: A1c of 6.7, follo w-up labs planned - Eye exam up to date Review of Systems - Musculoskeletal: Reports blister on th e right foot - Renal: Reports elevated creatinine lev els - Endocrine: Reports diabetes mellitus, A1c of 6.7 Physical Exam General: Cooperative, healthy appearing, comfortable, no acute distress and well developed Orientation: Patient oriented x3 Limitations: No limitations Head: Normal to inspection Ears: Hearing grossly normal bilaterally Nose: Normal external nose present Face and sinus: Normal facial exam Eyes: Appearance normal, both eyes and all related structures Neck: Normal visual inspection and Yes full ROM Respiratory: Normal respiratory effort and able to speak in complete sentences. Clear to auscultation bilaterally Cardiovascular: Regular rate and rhythm. Normal S1 and S2 GI: Normal to inspection. Soft to palpation and nontender Skin: No rashes or lesions noted Neuro: Patient oriented x3 Extremities: Normal to inspection, incision on right foot dorsal aspect just inferior to the third toe, well approximated and sutures are intact without signs of infection. Results - Labs: A1c of 6.7 - Labs: Elevated creatinine levels Plan 1. Osteomyelitis (Ruled Out) The patient was initially treated with intravenous antibiotics for suspected osteomyelitis of the right foot. Following a procedure to remove a screw and perform biopsies, osteomyelitis was ruled out. The patient will continue follow- up with the health care marketing specialist to monitor the healing process. 2. Blister On The Right Foot The patient reported a blister on the top of his right foot, which he believes was caused by a piece of thread. The area is currently healing well with no signs of infection. 3. Elevated Creatinine Levels The patient's creatinine levels increased during antibiotic treatment, necessitating close monitoring. He is advised to maintain hydration and will have repeat labs to assess kidney function. 4. Diabetes Mellitus The patient's diabetes is being monitored with an A1c of 6.7. Follow-up labs are planned to ensure optimal management of his condition. Discussion Notes I discussed with the patient the results of his recent foot procedure, confirming that osteomyelitis has been ruled out. We reviewed the importance of monitoring his creatinine levels and maintaining hydration. I advised him to continue follow-up with his health care marketing specialist and to repeat his labs to monitor his diabetes and kidney function. Patient Instructions - Continue to drink plenty of fluids to maintain hydration. - Follow up with the orthopedic speciali st as scheduled. - Repeat labs as advised to monitor diab etes and kidney function. [facility] Medical History Erectile dysfunction Peyronie's disease Hematoma of right third toe Diabetes GERD (gastroesophageal reflux disease) Barretts esophagus Patellofemoral arthritis of left knee Type 2 diabetes mellitus with diabetic polyneuropathy Subjective memory complaints Enlarged prostate Renal insufficiency Iron deficiency Hyperlipidemia HTN (hypertension) Hyperlipidemia LDL goal <100 Surgical History History of right inguinal hernia repair History of left knee surgery History of shoulder surgery History of tonsillectomy History of nasal surgery Hx of esophagogastroduodenoscopy Hx of colonoscopy History of foot surgery Family History Father Diabetes Mother Lung cancer Son No problems noted. Son No problems noted. Son No problems noted. Son No problems noted. Son No problems noted. Son No problems noted. Daughter No problems noted. Daughter No problems noted. Paternal Grandmother Diabetes Social History Household Members: Spouse Housing: House Do you presently have visiting nurse or other home services: No Alcohol intake: never Patient Tobacco Use Status: Never used Tobacco e-Cigarette/Vaping Use: Never Used Second Hand Smoke Exposure: No service: No Current occupational status: retired Cognitive needs: No Hearing needs: No Vision needs: Yes Questionnaire PHQ-9 Over the last 2 weeks, how often have you been bothered by any of the following problems? 1. Little interest or pleasure in doing things: not at all 2. Feeling down, depressed, or hopeless: not at all 3. Trouble falling or staying asleep, or sleeping too much: not at all 4. Feeling tired or having little energy: not at all 5. Poor appetite or overeating: not at all 6. Feeling bad about yourself - or that you are a failure or have let yourself or your family down: not at all 8. Moving or speaking so slowly that other people could have noticed. Or the opposite - being so fidgety or restless that you have been moving around a lot more than usual: not at all 9. Thoughts that you would be better off or of hurting yourself in some way: not at all Depression Screening Interpretation: Negative Depression Screening Done: Yes 86509 - PHQ-9 Billing: Yes Source: Developed by Drs. Johnathan Haas, Rosalia Fonseca, Abelardo Smith and colleagues, with an educational ignacio from [employer]. Thrive Questionnaire Date Thrive assessed: 03/24/25 I am a: Patient What is your living situation today?: I have a steady place to live Within the past 12 months, did the food you bought not last and you didn't have the money to get more?: Never true Within the past 12 months, did you worry whether your food would run out before you got money to buy more?: Never true Do you have trouble paying for medicines?: No Do you have trouble getting transportation to medical appointments?: No Do you have trouble paying your heating and electricity bill?: No Do you have trouble taking care of your child, family member or friend?: No Do you have trouble with day-to-day activities such as bathing, preparing meals, shopping, managing finances, etc.?: No Are you currently unemployed and looking for a job?: No Are you interested in more education?: Yes Please select the resources that you would like help with: None Currently or been in a relationship where the following occur: No concerns reported THRIVE Score: 0 AUDIT C Alcohol Use Questionnaire (AUDIT-C) 2. How many drinks containing alcohol do you have on a typical day when you are drinking?: 1 or 2 3. How often do you have six or more drinks on one occasion?: Never Total Score: 0 PETAR-7 AMB Questionnaire PETAR-7 Date PETAR - 7 assessed: 05/08/25 Feeling nervous, anxious, or on edge: 0 = Not at all Not being able to stop or control worryin = Not at all Worrying too much about different things: 0 = Not at all Trouble relaxin = Not at all Being so restless that it is hard to sit still: 0 = Not at all Becoming easily annoyed or irritable: 0 = Not at all Feeling afraid as if something awful might happen: 0 = Not at all Total PETAR-7 score (0-4 normal; 5-9 mild; 10-14 moderate; 15-21 severe): 0 Source: Developed by Drs. Johnathan Haas, Rosalia Fonseca, Abelardo Smith and colleagues, with an educational ignacio from [employer]. PETAR-7 Assessment Billing PETAR-7 Assessment Tool: PETAR-7 Assessment 09779 Physical exam (Primary Care) Vital Signs: Last Vital Signs Pulse 67 05/08/25 11:26 Resp 16 05/08/25 11:26 BP 126/76 05/08/25 11:26 Pulse Ox 98 05/08/25 11:26 Oxygen Delivery Method Room Air 05/08/25 11:26 BMI result Body Mass Index 31.8 Tobacco/Smoking Status: Tobacco use Status Tobacco use date assessed 05/08/25 05/08/25 11:34 Patient Tobacco Use Status Never used Tobacco 05/08/25 11:21 e-Cigarette/Vaping Use Never Used 05/08/25 11:21 Depression Screening Interpretation: Negative Thrive Assessment: Date of Thrive Assessment Date Thrive assessed 03/24/25 05/08/25 11:21 Currently or been in a relationship where the following occur: No concerns reported Results AMB Hemoglobin A1c AMB Hemoglobin A1c 6.7 % Last Edit by Gisele Mancia MA on 05/08/25 13:15 Coding Level of Care Code Est Pt Level 3 (62299) Diagnoses Type 2 diabetes mellitus with diabetic polyneuropathy E11.42 Foot infection L08.9 Additional Codes PETAR-7 Assessment Billing - PETAR-7 Assessment Tool: PETAR-7 Assessment 36292 ([id number]) PHQ-9 - 72112 - PHQ-9 Billing: Yes ([id number]) Assessment & Plan Assessment & Plan (1) Type 2 diabetes mellitus with diabetic polyneuropathy: Code(s): E11.42 - Type 2 diabetes mellitus with diabetic polyneuropathy Category: Medical (2) Foot infection: Code(s): L08.9 - Local infection of the skin and subcutaneous tissue, unspecified Category: Medical Plan . Orders: Orders AMB Hemoglobin A1c Today Z13.9 - Encounter for screening, unspecified Comprehensive Met. Panel Today E11.42 - Type 2 diabetes mellitus with diabetic polyneuropathy, L08.9 - Local infection of the skin and subcutaneous tissue, unspecified Complete Blood Count Auto Diff Today E11.42 - Type 2 diabetes mellitus with diabetic polyneuropathy, L08.9 - Local infection of the skin and subcutaneous tissue, unspecified UA CC w/rflx Micro + Cult Today E11.42 - Type 2 diabetes mellitus with diabetic polyneuropathy, L08.9 - Local infection of the skin and subcutaneous tissue, unspecified
[2025-05-08 11:26] VITALS: BP 126/76; PULSE 67; RESP 16; O2SAT 98; BMI 31.8
--- OUTSIDE RECORDS SUMMARY | 2025-05-08 13:50 | XMS_ITS | Patient Health Record ---
Author Organization [facility] Address [address] [place] [address] Care Team Providers Care Executive Director Of Marketing Name Role Phone RICK RENE Primary Care Provider Johnathan John Unavailable [phone] Allergies No Known Allergies Reason For Referral [...] Status Risk Notes Problem Diverticulitis of colon (608032316) Diverticulitis of large intestine without perforation or abscess without bleeding (K57.32) Active confirmed Problem Screening for malignant neoplasm of colon (111818309) Encounter for screening for malignant neoplasm of colon (Z12.11) Active confirmed Problem Iron deficiency anemia (42742320) Iron deficiency anemia, unspecified iron deficiency anemia type (D50.9) Active confirmed Problem Reflux esophagitis (644868915) Reflux esophagitis (K21.0) Active confirmed Problem Méndez esophagus (563456332) 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 Problem Colorectal cancer (5074012169) Colorectal cancer (C19) Active confirmed Problem Méndez's esophagus (211433445) 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 Problem Gastroesophageal reflux disease with esophagitis (disorder) (718117596) Gastroesophageal reflux disease with esophagitis without hemorrhage (K21.00) Active confirmed Plan Of Treatment Future Test Test Name Order Date UPPER GI ENDOSCOPY 06/25/2018 COLONOSCOPY 06/25/2018 UPPER GI ENDOSCOPY 11/13/2021 Next Appt Details Provider Name:Johnathan Giang , 05/24/2025 03:20:00 PM, [address] [place] [address], [facility] [address], [place], [address], Insurance Providers Payer Name Payer Address Payer Phone Subscriber Number Group Number Insured Name Patient Relationship to Insured Coverage Start Date Coverage End Date MEDICARE OF [place] [address] [place] [address] [phone] [id number] BENJAMIN KIDD Self - patient is the insured [employer] [address] [place] [address] [id number] BENJAMIN KIDD Self - patient is the insured Medical (General) History Medical History History ICD Code Screening colonoscopy 009--negative except for mild sigmoid diverticulosis and internal hemorrhoids Diverticulitis on CT scan 2015--treated with inpatient and outpatient antibiotics NIDDM Hyperlipidemia Denies [place],CVA,Lung disease,renal disease HTN Iron def anemia--EGD in [...]
--- OUTSIDE RECORDS SUMMARY | 2025-05-08 13:50 | XMS_ITS | Patient Health Record ---
Author Organization [facility] Address [address] [place] [address] Care Team Providers Care Money Counter Name Role Phone Giovanni Choe Primary Care Provider Unav ailable Maurizio Rivas Unavailable [phone] Allergies No Known Allergies Reason For Referral [...] meal s Orally Twice a day Active Rmkwhe-Roadjwchk-BGU Complex - as directed Orally 01/25/2024 Active [...] W/U Status Risk Notes Problem Plantar wart (11961102) Plantar wart (B07.0) Active confirmed Problem Type II diabetes mellitus without complication (863842697) Type 2 diabetes mellitus without complication (E11.9) Active confirmed Plan Of Treatment Pending Test Test Name Order Date 11870-Kgts Destruction, -02/05/2024 Insurance Providers Payer Name Payer Address Payer Phone Subscriber Number Group Number Insured Name Patient Relationship to Insured Coverage Start Date Coverage End Date Medicare National [employer] [address] [place] [address] [id number] Michael Martinez Self - patient is the insured for [employer] [address] [place] [address] [id number] Michael Martinez Self - patient is the [...]
--- OUTSIDE RECORDS SUMMARY | 2025-05-08 13:50 | XMS_ITS | Clinical Summary ---
Author Organization [facility] Address [address] [facility] [address] [place] [address] Phone Care Team Providers Care Lead Ruby On Rails Developer Name Role Phone Giovanni Henriquez NP Primary Care Provider [phone] Allergies No known active allergies Medications atorvastatin [...] mouth 1 (one) time each day Active Conover-3 Fatty Acids (Fish Oil) 1000 MG capsule [...] age to complete this topic Insurance Medicare [facility] Medicare [facility] Care Teams Lead Ruby On Rails Developer Relationship Specialty Start Date End Date Giovanni Henriquez NP [facility] [place] [address] PCP - General Nurse Practitioner 06/21/21
== END 2025-05-08 12:04 | disposition home or self-care (01) ==
LOC: HO.HMCC 11:15
PROVIDERS: PCP Nurse Practitioner Family; Visit Provider Nurse Practitioner Family
DX: E11.42 Type 2 diabetes mellitus with diabetic polyneuropathy (principal); L08.9 Local infection of the skin and subcutaneous tissue, unspecified; Z13.9 Encounter for screening, unspecified

== ENCOUNTER → 2025-05-08 11:14 | Outpatient (BNVA) | payer MEDICARE, OTHER, SELFPAY | PROVIDERS: PCP Nurse Practitioner Family; Visit Provider Nurse Practitioner Family | DX: E11.42 Type 2 diabetes mellitus with diabetic polyneuropathy (principal); L08.9 Local infection of the skin and subcutaneous tissue, unspecified; R79.89 Other specified abnormal findings of blood chemistry; S90.821A Blister (nonthermal), right foot, initial encounter; X58.XXXA Exposure to other specified factors, initial encounter; Y93.9 Activity, unspecified; Y92.9 Unspecified place or not applicable; Y99.9 Unspecified external cause status | CPT/HCPCS: 83036; 96127; 99212 ==

== ENCOUNTER 2025-06-02 15:38 | Outpatient (AMB) | payer MEDICARE, OTHER, SELFPAY ==
--- NOTE | 2025-06-02 15:08 | MHC.OFFVIS ---
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 He is currently on tamsulosin, vitamin E, pentoxifylline, and tadalafil for management. He has been experiencing a persistent mild penile curvature improved since starting medication, but it does not impede sexual intercourse. The patient is not experiencing any issues with erectile function, as tadalafil appears to be effective. He has not been taking tamsulosin recently, and it was decided to discontinue it as it was not deemed necessary. Results - Prostate-Specific Antigen (PSA): 2.24 ng/mL (within normal limits) on 05/06/25 Plan - Continue tadalafil 5 mg daily for management of symptoms. - Discontinue tamsulosin - Follow-up in one year with repeat blood work. PSA - Continue vitamin E and pentoxifylline as current treatment. - Follow-up in one year to reassess condition. 10/24/24-followed for BPH and Peyronie's. He was prescribed tamsulosin, vitamin-E and pentoxifylline. Michael states he has noticed about 75-80% improvement in the curvature. on generic viagra with suboptimal erections Will start daily cialis 5 mg. Cont PSA screening. FU Oct, PSA prior Results: Labs- 04/16/24--PSA-2.14 ng/mL 06/26/24--6 month fu. LV 12/31/23--followed for BPH and Peyronie's. He was prescribed tamsulosin, vitamin-E and pentoxifylline. Michael states he has noticed about 50% improvement in the curvature. I have discussed options to continue with the medication or see Dr. Perkins for an injection into the plaque itself. Michael wants to see how things go over the next few months. In terms of his voiding, he did not refill the tamsulosin because he called the office and did not get a call back so he did not think the tamsulosin was necessary however he feels that he is emptying adequately at this time in that the tamsulosin did not make a difference. PVR today is minimal. I reviewed testing today including renal ultrasound done 01/07/2024 which is within normal limits and PSA 04/16/24-2.14. renal ultrasound 11/27/2023-within normal limits 04/16/24--PSA-2.14 ng/mL 12/31/23--Michael is a 68-year-old male with complaints of slowing of urinary stream and nocturia. He also complains that he notices a bending of the penis with erections. I will prescribe tamsulosin and have discussed trial of vitamin-E and pentoxifylline. [facility] Medical History (Updated 07/16/25 @ 11:00 by OVI Lai) PAD (peripheral artery disease) Erectile dysfunction Peyronie's disease Hematoma of right third toe Diabetes GERD (gastroesophageal reflux disease) Barretts esophagus Patellofemoral arthritis of left knee Type 2 diabetes mellitus with diabetic polyneuropathy Subjective memory complaints Enlarged prostate Renal insufficiency Iron deficiency Hyperlipidemia HTN (hypertension) Hyperlipidemia LDL goal <100 Surgical History (Updated 07/12/25 @ 11:30 by Carey Sims RN) S/P trigger finger release (05/19/22) History of right inguinal hernia repair History of left knee surgery History of shoulder surgery History of tonsillectomy History of nasal surgery Hx of esophagogastroduodenoscopy (2021) Hx of colonoscopy History of foot surgery Family History Father Diabetes Mother Lung cancer Son No problems noted. Son No problems noted. Son No problems noted. Son No problems noted. Son No problems noted. Son No problems noted. Daughter No problems noted. Daughter No problems noted. Paternal Grandmother Diabetes Social History (Updated 07/12/25 @ 13:13 by Carey Sims RN) Household Members: Spouse Housing: House Do you presently have visiting nurse or other home services: No Alcohol intake: current Alcohol intake frequency: holidays/special occasions only Alcohol type: beer, wine, hard liquor and other Patient Tobacco Use Status: Never used Tobacco e-Cigarette/Vaping Use: Never Used Second Hand Smoke Exposure: No Use of substances other than those prescribed or required for medical reasons: No Have you been hit, kicked, punched, or otherwise hurt by someone within the past year? If so, by whom?: No Are you DNR?: No Advance Directives: No (will bring dos) Advance Directives Information Provided: No Advance Directives on File: No service: Yes Current occupational status: retired Cognitive needs: No Hearing needs: No Vision needs: Yes Review of Systems Const All systems reviewed & are unremarkable except as noted in HPI and below Reports no additional complaints Eyes Reports no additional complaints ENT Reports no additional complaints Card Reports no additional complaints Resp Reports no additional complaints GI Reports no additional complaints Reports as per HPI Musc Reports no additional complaints Skin/Breast Reports system reviewed and no additional complaints, except as documented Neuro Reports no additional complaints Psych Reports no additional complaints Endo Reports no additional complaints Randy/Lymph Reports no additional complaints Aller/Immun Reports no additional complaints Telehealth Telehealth Telehealth Platform: [employer] Location of provider rendering services: practice address Location of patient: address on file Patient Identification confirmed using: Name, : Yes Telehealth method: video Patient verbally consented to treatment: Yes Patient verbally consented to billing insurance company: Yes Patient informed of any privacy concerns related to visit: Yes Assessment & Plan Assessment & Plan (1) Screening PSA (prostate specific antigen): Code(s): Z12.5 - Encounter for screening for malignant neoplasm of prostate Category: Medical (2) BPH (benign prostatic hyperplasia): Code(s): N40.0 - Benign prostatic hyperplasia without lower urinary tract symptoms Category: Medical (3) Peyronie's disease: Code(s): N48.6 - Induration penis plastica Category: Medical Plan Plan - Continue tadalafil 5 mg daily for management of symptoms. - Discontinue tamsulosin - Follow-up in one year with repeat blood work. PSA - Continue vitamin E and pentoxifylline as current treatment. - Follow-up in one year to reassess condition. Medications: Refilled pentoxifylline ER 400 mg PO BID 180 tabs 3RF 90 days vitamin E (dl, acetate) 450 mg PO DAILY 90 caps 3RF 90 days Patient Instructions: The patient had an opportunity to ask questions regarding treatment plan. The patient expressed understanding and agreement with the above treatment plan. The patient is aware they should contact our office by phone for worsening of their current condition or the appearance of new symptoms. Compliance is encouraged with any medications and followup testing that is ordered. It is a privilege to be allowed the opportunity to participate in the urologic care of your patient. If you have any questions or concerns regarding treatment for the above conditions please do not hesitate to contact me. The office telephone contact is [phone]. This note is constructed in part using voice recognition software. While every effort has been made to ensure accuracy internet marketing consultant errors may have been included. Yours sincerely, Christy Morris MD Scribe Plan - Not visible on output: Patient was informed and verbally consented to the use of an ambient scribe for clinic note documentation during this visit. Coding Level of Care Code Est Pt Level 4 (14715) Diagnoses Screening PSA (prostate specific antigen) Z12.5 BPH (benign prostatic hyperplasia) N40.0 Peyronie's disease N48.6
--- OUTSIDE RECORDS SUMMARY | 2025-06-03 00:44 | XMS_ITS | Continuity of Care Document ---
Author Organization [place] - [facility], [place] [facility] 1st Floor Address [address] [place] [address] Care Team Providers Care Damage Adjuster Name Role Phone ESTEFANYXU RICK Primary Care Provider [phone] Assessment Encounter Date Assessment Date Assessment LastModified by Organization Details LastModified Time 04/13/2025 04/13/2025 69-year-old male presents today in [...] Modified Time Details Appointments POST OP 15 025 12:30PM Reza Cifuentes MD Not available Not available Not available Lab None record ed. Referral None record ed. Procedures None record ed. Surgeries None record ed. Imaging None record ed. Medication Orders None record ed. Patient TargetsNo targets recorded. Patient InstructionsNo instructions recorded. Reason for Referral None Reported. Results Created Date Observation Date Name Description Value Unit Range Abnormal Flag Note LastModifiedBy Organization Detail LastModifiedTime 03/28/2003/28/2025 XR, foot, 3 or more view http:/ [email or web address] ?Encry pted=s hAaTro YD8dLq bEUv6g %2BXZw aYqtaq 0bqfl% 2Fg9IQ a4ajBk vP9nXo QUaueC m3YtLR FvZlgJ JJ8mAn HZtai3 3d0293 AC0Klb HyHWaS mKiQtr Mw INTERFACE [facility] [address], [place], [address], 03/28/2025 08:40:53 03/28/20 25 03/28/2025 XR, foot, 3 or more view http:/ [email or web address] ?Encry pted=s hAaTro YD8dLq bEUv6g %2BXZw aYqtaq 0bqfl% 2Fg9IQ a4ajBk vP9nXo QUaueC m3YtLR FvZlgJ JJ8mAn HZtai3 9q4141 AC0Klb HyHWaS mKiQtr Mw INTERFACE [facility] [address], [place], [address], 03/28/2025 08:40:55 03/28/20 25 03/23/2025 XR, toe(s ), 2 or more view No observ ation record ed. BARCODE Not Available 2024 10:34:00 05/09/20 25 05/09/2025 XR, foot, 3 or more view http:/ [email or web address] ?Encry pted=s hAaTro YD8dLq bEUv6g %2BXZw aYqtaq 0bqfl% 2Fg9IQ a4ajBk vP9nXo QUaueC m3YtLR FvZlgJ JJ8mAn HZtai3 9k6709 AC0KlY nyCU6C jKiQtr MwF INTERFACE [facility] [facility] [address] [facility], [place], [address], 05/09/2025 11:11:49 05/09/2005/09/2025 XR, foot, 3 or more view http:/ [email or web address] ?Encry pted=s hAaTro YD8dLq bEUv6g %2BXZw aYqtaq 0bqfl% 2Fg9IQ a4ajBk vP9nXo QUaueC m3YtLR FvZlgJ JJ8mAn HZtai3 9c3557 AC0KlY nyCU6C jKiQtr MwF INTERFACE [employer] [facility] [address] [facility], [place], [address], 05/09/2025 11:11:51 Result Notes None recorded. Problems Name Problem SNOMED Code Status Onset Date Resolution Date Notes Provider Name and Address Organization Details Recorded Time No complaints 549011474 Active Status : 'A'; Not Available [facility] 4 09:25:07 Hammer toe 301806287 Active 2024 [place] PA-C [address] [facility] [place], [place], [address] , [facility] 5 08:09:18 Osteomyeli tis of right foot 1089583258166 100 Active 2024 [place] PA-C [address], [place], [address] , [facility] 5 08:09:35 Problem Notes None recorded. Procedures Surgical History Date Name Laterality Status Provider Name and Address Organization Details Recorded Time Knee Surgery completed FRANKIE MARTINEZ [facility] 08/04/2024 13:45:02 Shoulder Surgery completed FRANKIE MARTINEZ [facility] 08/04/2024 13:45:02 Ankle/Foot Surgery completed FRANKIE MARTINEZ [facility] 08/04/2024 13:45:02 Hand Surgery completed FRANKIE MARTINEZ [facility] 08/04/2024 13:45:02 [facility] Neck [facility] 08/04/2024 [...] completed Not Available Not Available Not Available tamsulosin 0.4 mg capsule TAKE ONE [...] Not Available Not Available No t Available Ecotrin 325 mg tablet,ente misha coated Take 1 tablet every day by oral route for 14 days. 05/16 completed Not Available Not Available Not Available fluticasone propionate 50 mcg/actuati on nasal [...] completed Not Available Not Available Not Available Tylenol Extra Strength 500 mg tablet Take 2 tablets every 8 hours by oral route for 15 days. 05/17 completed Not Available Not Available Not Available [...] Updated DateTime 04/13/2025 185.42 cm 25.7 kg/m2 07132.51 g Porter Palomares [place] - [place] [facility] 04/13/2025 09:28:55 Social History Question Answer Notes LastModified by Organizat ion Details LastModified Time Tobacco Smoking Status Never Smoker FRANKIE fontana [place] [facility] 08/04/2024 13:45:01 What Is Your Relationship Status? Information not available 08/04/2024 How Many Years Have You Smoked Tobacco? 0 Information not available 08/04/2024 Sex: Unknown Functional Status Question Answer Note LastModified by Organizat ion Details LastModified Time How many times per [...] ICD10 Code Diagnosis IMO Codes Diagnosis Note [id number] DONALD Jackman [address] [place] [address] 03/28/2025 08:21:55 04/05/2025 11:04:53 Pain in right foot 8885717974 05721 M79.671 555632 Hammer toe 119299376 M20 .41 [id number] DONALD Collins [address] [place] [address] 04/13/2025 09:21:46 04/24/2025 09:20:15 Hammer toe 704895940 M20.41 [id number] Osteomyeli tis of right foot 3684116630 084186 M86.9 [id number] Health Concerns Section Related Observation LastModified by Organization Detai ls LastModified Time None Recorded Concern Status LastModified by Organization Details LastModified Time None Recorded Payers Encounter Date Sequence Insurance Name Policy Number Policy Haney Covered Member ID Haney Member ID Guarantor Name 04/13/2025 1 [place] [employer] Michael Martinez [id number] Michael Martinez 04/13/2025 2 FOR LIFE ( - MEDICARE SUPPLEMENT) Michael Martinez [id number] Michael Martinez Notes Date Note Type Note Provider Name and Address Organization Details Recorded Time 04/13/2025 text/html ROS as noted in the [...] possible cultures. He has been treated by [facility] infectious disease with vancomycin via PICC line which was started on March 23, 2025 and discontinued on April 05 due to patient going on a vacation. He presents today for a wound check. He denies any significant pain of the foot. Denies any new wounds present, and denies any erythema. [place] Vallejo PA-C [address] [facility] [address], [place], [address], [facility] - [place] [facility] 04/13/2025 10:41:02
--- OUTSIDE RECORDS SUMMARY | 2025-06-03 00:44 | XMS_ITS | Data Portability ---
Author Organization ANDRADE Johnathon Rios [facility], [facility] Address [address] [place] [address] Care Team Providers Care Alliances Consultant Name Role Phone RICK RENE Primary Care Provider Assessment Encounter Date Assessment Date Assessment LastModified [...] obtained and reviewed by me today at [facility], demonstrating interval healing of his osteotomy and [...] obtained and reviewed by me today at [facility], demonstrating interval healing of his osteotomy and [...] any issues. [email or web address] Not available 04/13/2025 10:40:50 05/09/2025 05/09/2025 I am seeing the patient today under the supervision of Dr. Cifuentes who was available but who did not see the patient. HPI: 61-year-old male seen today 2 weeks postop hardware removal, right foot. Doing well. No complaints Past family, medical, social history and review of systems has been reviewed, updated and is located in the patient s chart. Examination: the patient is alert and cooperative in no acute distress. Afebrile, vital signs stable. There is active ROM of the hips and knees, calves are soft and nontender. His active range of motion of the right foot and ankle. Surgical wounds are clean, dry and nicely approximated. Sensation, circulation are intact distally. Impression: Postop right foot hardware removal Plan:. Sutures are removed today. And a collagen dressing applied. Instructed in dressing changes and transition to a comfortable shoe. [email or web address] Not available 05/09/2025 11:27:16 Plan of Treatment Reminders Order Date Submit Date Provider Last Modified By Organization Details Last Modified Time Details Appointments POST OP 15 2024 12:30P M Reza Cifuentes MD Not available Not available Not available Lab None recorded. Referral None recorded. Procedures None recorded. Surgeries orthopaed ic surgery (SURG) 2024 025 [email or web address] eosc, [address], [place], [address], 04/20/2025 08:51:35 Imaging XR, foot, 3 or more view - room 114 3V R foot 2024 025 [email or web address] [facility] Office, [address], [facility] [address], [place], [address], 05/09/2025 11:28:07 XR, foot, 3 or more view 2024 025 [email or web address] [facility] Office, [address], [address], [place], [address], 03/28/2025 08:41:16 XR, foot, 3 or more view - RECHECK PT 3 VIEWS RIGHT FOOT WB RM 107 [facility] [address], [address], [place], [address], 02/21/2025 13:06:45 XR, foot, 3 or more view - RM 107 R FOOT 3V WB 2024 025 [facility] Office, [address], [address], [place], [address], 12/20/2024 09:38:01 Medication Orders None recorded. Patient TargetsNo targets recorded. Patient InstructionsNo instructions recorded. Reason for Referral None Reported. Results Created Date Observation Date Name Description Value Unit Range Abnormal Flag Note LastModifiedBy Organization Detail LastModifiedTime 12/10/1912/09/2024 XR, foot, 3 or more view [email or web address]:/ [email or web address] ?Encry pted=s hAaTro YD8dLq bEUv6g %2BXZw aYqtaq 0bqfl% 2Fg9IQ a4ajBk vP9nXo QUaueC m3YtLR FvZlgJ JJ8mAn HZtai3 1j6136 AC0Kla 3mNU6C hKiQtr MwF INTERFACE [facility] Office [address], [place], [address], 12/09/2024 10:21:53 12/10/19 25 12/09/2024 XR, foot, 3 or more view [email or web address]:/ [email or web address] ?Encry pted=s hAaTro YD8dLq bEUv6g %2BXZw aYqtaq 0bqfl% 2Fg9IQ a4ajBk vP9nXo QUaueC m3YtLR FvZl JJ8[place] HZtai3 3u5003 AC0Kla 3mNU6C hKiQtr MwF INTERFACE [facility] [address] [facility] [address], [place], [address], 12/09/2024 10:21:55 02/11/20 25 02/10/2025 XR, foot, 3 or more view [email or web address]:/ [email or web address] ?Encry pted=s hAaTro YD8dLq bEUv6g %2BXZw aYqtaq 0bqfl% 2Fg9IQ a4ajBk vP9nXo QUaueC m3YtLR FvZl [facility] HZtai3 6o7300 AC0Klb nyMVaK hKiQtr MwF INTERFACE [facility] [address] [facility] [address] [address], [place], [address], 02/10/2025 08:29:36 02/11/20 25 02/10/2025 XR, foot, 3 or more view http:/ [email or web address] ?Encry pted=s hAaTro YD8dLq bEUv6g %2BXZw aYqtaq 0bqfl% 2Fg9IQ a4ajBk vP9nXo QUaueC m3YtLR FvZl JJ8[place] HZtai3 9j4119 AC0Klb nyMVaK hKiQtr MwF INTERFACE [facility] [address] [facility] [address], [place], [address], 02/10/2025 08:29:37 03/28/20 25 03/28/2025 XR, foot, 3 or more view [email or web address] ?Encry pted=s hAaTro YD8dLq bEUv6g %2BXZw aYqtaq 0bqfl% 2Fg9IQ a4ajBk vP9nXo QUaueC m3YtLR FvZlgJ JJ8[place] HZtai3 7n7190 AC0Klb HyHWaS mKiQtr MwF INTERFACE [facility] [address], [place], [address], 03/28/2025 08:40:53 03/28/20 25 03/28/2025 XR, foot, 3 or more view http:/ [email or web address] ?Encry pted=s hAaTro YD8dLq bEUv6g %2BXZw aYqtaq 0bqfl% 2Fg9IQ a4ajBk vP9nXo QUaueC m3YtLR FvZlgJ JJ8mAn HZtai3 7s5696 AC0Klb HyHWaS mKiQtr MwF INTERFACE [facility] [address] [facility] [facility] [address], [place], [address], 03/28/2025 08:40:55 03/28/2003/23/2025 XR, toe(s ), 2 or more view No observ ation record ed. BARCODE Not Available 2024 10:34:00 05/09/20 25 05/09/2025 XR, foot, 3 or more view http:/ [email or web address] ?Encry pted=s hAaTro YD8dLq bEUv6g %2BXZw aYqtaq 0bqfl% 2Fg9IQ a4ajBk vP9nXo QUaueC m3YtLR FvZlgJ JJ8mAn HZtai3 0v2161 AC0KlY nyCU6C jKiQtr MwF INTERFACE [facility] [address], [place], [address], 05/09/2025 11:11:49 05/09/2005/09/2025 XR, foot, 3 or more view http:/ [email or web address] ?Encry pted=s hAaTro YD8dLq bEUv6g %2BXZw aYqtaq 0bqfl% 2Fg9IQ a4ajBk vP9nXo QUaueC m3YtLR FvZlgJ JJ8mAn HZtai3 2c8376 AC0KlY nyCU6C jKiQtr MwF INTERFACE [facility] [address], [place], [address], 05/09/2025 11:11:51 Result Notes Documentation Provider Name and Address Organization Details Recorded Time Xr, Foot, 3 Or More View : [email or web address] Encrypted=wfLrVpwSG7pNofB Uv6g%9KNYlcYmocw7bnfj%2Fg 5HYk1auMvyJ6zUjDBazeXx8Sy HENpVwrYGT4qWzQNcbb14j143 7HC0Ame5mNA0KpBbYrfLxH Not Available [facility] 12/09/2024 10:21: 54 Xr, Foot, 3 Or More View : [email or web address] Encrypted=utIuCbjLF8oYgfK Uv6g%1XJHtfSksev4ypmu%2Fg 9ELr3rtUguV3wPgEKsnoRg1Nt UOCcGfkBXA8bYtFShcj06n464 4KS5Nhm3qHA0KxIrDblWiO Not Available [facility] 12/09/2024 10:21: 55 Xr, Foot, 3 Or More View : [email or web address] Encrypted=dgIzBujZO6cYynR Uv6g%9UCLvcGcuwb9ljmb%2Fg 1RYh2ilRduG6oOpMWarkVv4Kk WQKvIxdBAE4vUsVNprm19e404 6EK8ZbizmUZwCyQqIpjWzZ Not Available [facility] 02/10/2025 08:29: 37 Xr, Foot, 3 Or More View : [email or web address] Encrypted=omTiDiiQX5vTelI Uv6g%8VXIziDionp9xisk%2Fg 4YAk5gxWovK6tCvCGwliNo2Cg PQHeMbeZEH1yHeCRlqr54k707 7UX4GwtjkHFqInNoVhfGzY Not Available [facility] 02/10/2025 08:29: 38 Xr, Foot, 3 Or More View : [email or web address] Encrypted=dzGhJecWR4bCkqH Uv6g%2WIViwKpvlo7ciao%2Fg 0ZHe5pxSymK9fElCJgjvWh1Fu OCEgEeqOOT2hYoCUrdc24o749 8AM7RogWwGQnWqShSrnPrO Not Available [facility] 03/28/2025 08:40: 54 Xr, Foot, 3 Or More View : [email or web address] Encrypted=roQpGujEC3fVkaK Uv6g%2XQBviBtaeo7xymj%2Fg 3FVg2pdMueP2hCrFBjpwGm8Cr OGGzDriCEG4fGvOSyox12f170 1VO0KsrZrUJfYwVlDdrOvB Not Available [facility] 03/28/2025 08:40: 55 Xr, Foot, 3 Or More View : [email or web address] Encrypted=ywHiAlcTJ8iGqyP Uv6g%5OQYkhFwxcl9fnjm%2Fg 3XJr7myWxoH8bGrRQekxGv6Gz LVPgXzsXCW5rSsLUkir30z248 2JI4XtCdmIE6AzMbWseIbO Not Available [facility] 05/09/2025 11:11: 50 Xr, Foot, 3 Or More View : [email or web address] Encrypted=vlEeXhgEV5kRkvD Uv6g%3CDOlnGrjmx0ejzg%2Fg 3RGb7jiNpdM4mMjNCataVj5Vl HJFePveVMP1hFmAVwii46u972 9DO9LuTpeVB0PhTzNfrEqY Not Available [facility] 05/09/2025 11:11: 52 Problems Name Problem SNOMED Code Status Onset Date Resolution Date Notes Provider Name and Address Organization Details Recorded Time No complaints 900858240 Active Status : 'A'; Not Available [facility] 09:25:07 Hammer toe 302465997 Active 2024 West Vallejo PA-C [address], [place], [address] , [facility] 5 08:09:18 Osteomyeli tis of right foot 1650214910730 100 Active 2024 West Vallejo PA-C [address], [place], [address] , [facility] 5 08:09:35 Problem Notes None recorded. Procedures Surgical History Date Name Laterality Status Provider Name and Address Organization Details Recorded Time Knee Surgery completed [facility] 08/04/2024 13:45:02 Shoulder Surgery completed [facility] 08/04/2024 13:45:02 Ankle/Foot Surgery completed [facility] 08/04/2024 13:45:02 Hand Surgery completed [facility] 08/04/2024 13:45:02 Head or Neck Surgery completed [facility] 08/04/2024 13:45:02 Imaging Results None recorded. Procedure [...] Updated DateTime 12/09/2024 185.42 cm 25.7 kg/m2 17024.51 g ILAN BAZAN [facility] 12/09/2024 10:14:49 Date Recorded Body height Body mass index (BMI) Body weight Provider Name and Address Organization Details Last Updated DateTime 02/10/2025 185.42 cm 25.7 kg/m2 87532.51 g Zonia Bermeo [facility] 02/10/2025 08:21:05 Date Recorded Body height Body mass index (BMI) Body weight Provider Name and Address Organization Details Last Updated DateTime 03/28/2025 185.42 cm 25.7 kg/m2 63307.51 g SHABANA TRIPP [facility] 03/28/2025 08:31:29 Date Recorded Body height Body mass index (BMI) Body weight Provider Name and Address Organization Details Last Updated DateTime 04/13/2025 185.42 cm 25.7 kg/m2 24257.51 g Porter Palomares [facility] 04/13/2025 09:28:55 Date Recorded Body height Body mass index (BMI) Body weight Body temperature Provider Name and Address Organization Details Last Updated DateTime 05/09/2025 185.42 cm 25.7 kg/m2 59220.51 g 98 [degF] VENKAT ROSALES [facility] 05/09/2025 11:04:44 Social History Question Answer Notes LastModified by Organizat ion Details LastModified Time Tobacco Smoking Status Never Smoker FRANKIE fontana [facility] 08/04/2024 13:45:01 What Is Your Relationship Status? [...] IMO Codes Diagnosis Note MD HOLLY Gill [address] [place] [address] 08/04/2024 13:17:57 08/16/2024 08:21:01 Pain in bilateral feet 1242224266 9189765 M79.671 M79.672 11027451 Pain in right foot 16258 92921 72345 M79.671 297576 Bilateral metatarsalgia 0869938822 7278116 M77.41 M77.42 79443431 Hammer toe 220116577 M20 .41 M20.42 5529733461 [id number] DONALD Jackman [address] [place] [address] 09/06/2024 14:49:25 09/19/2024 14:52:15 Hammer toe 653059690 M20.41 98440153 [id number] MD HOLLY Gill [address] [place] [address] 10/04/2024 10:25:01 10/17/2024 10:39:11 Pain in right foot 1431726959 [address] [place], [place] [address] 459590 Postoperative visit 5697 35403 Z48.89 95225936 [id number] NELY RIVAS PA-C [facility] [address] [place] [address] 10/14/2024 13:39:16 10/26/2024 14:20:41 Pain in right foot 9512910619 [address] [place], [place] [address] 097287 [id number] NELY RIVAS PA-C [facility] [address] [place] [address] 11/15/2024 10:22:57 11/22/2024 08:52:36 Hammer toe 373143068 M20.41 93986825 [id number] MD [facility] [address] [place] [address] 12/09/2024 09:51:37 12/20/2024 09:38:00 Pain in right foot 7593524368 [address] [place], [place] [address] 617766 Follow-up orthopedic assessment 741660638 Z47.89 65308972 [id number] MD [facility] - [place] [address] [place] [address] 02/10/2025 08:16:29 02/21/2025 13:06:45 Pain in right foot 8782944950 [address] [place], [place] [address] 644211 Follow-up orthopedic assessment 083916652 Z47.89 [id number] [id number] Oanh Prado PA-C [facility] [address] [place] [address] 03/28/2025 08:21:55 04/05/2025 11:04:53 Pain in right foot 2375875970 [address] [place], [place] [address] 797182 Hammer toe 785080225 M20 .41 60778234 [id number] West Vallejo PA-C [facility] [address] [place] [address] 04/13/2025 09:21:46 04/24/2025 09:20:15 Hammer toe 921238622 M20.41 29156580 Osteomyeli tis of right foot 8162082802 380537 M86.9 49146564 [id number] DONALD Johnson [address] [place] [address] 05/09/2025 10:54:45 05/18/2025 08:48:47 Pain in right foot 7416438368 22505 M79.671 222223 Postoperative visit 1836 56833 Z48.89 18404618 Health Concerns Section Related Observation LastModified by Organization Detai ls LastModified Time None Recorded Concern Status LastModified by Organization Details LastModified Time None Recorded Advance Directives Directive None Recorded Payers Insurance Date Sequence Insurance Name Policy Number Policy Haney Covered Member ID Haney Member ID Guarantor Name 05/08/2025 1 [place]MENT [place] Michael Hannahinge [id number] Michael Martinez 05/06/2025 2 FOR LIFE ( - MEDICARE SUPPLEMENT) Michael Hannahinge [id number] Michaelolamide Martinez 05/03/2025 NORIDIAN - SPECIALITY CLAIMS (MEDICARE DME REGION A) Michael Hannahinge [id number] Michael Martinez Notes Date Note Type Note Provider Name and Address Organization Details Recorded Time 12/09/2024 text/html ROS as noted in the HPI Reza Cifuentes MD [address], [place], [address], [facility] 12/09/2024 10:49:22 02/10/2025 text/html ROS as noted in the HPI Reza Cifuentes MD [address], [place], [address], [facility] 02/10/2025 08:54:06 03/28/2025 text/html I am seeing [...] concern for osteomyelitis. He was sent to [facility]. He was seen at [facility] and x-rays were concerning for osteomyelitis and loosening of the third metatarsal screw. He was admitted and there was concern that he had a small pustule over the third metatarsal head. He was seen by orthopedics at [facility] and by infectious disease. Per infectious [...] patient today and reviewed his notes from [facility]. I reviewed the case with Dr. [...] our office immediately. Oanh Prado PA-C [address], [place], [address], [facility] 03/30/2025 15:18:02 04/13/2025 text/html [...] possible cultures. He has been treated by [facility] infectious disease with vancomycin via PICC line which was started on March 23, 2025 and discontinued on April 05 due to patient going on a vacation. He presents today for a wound check. He denies any significant pain of the foot. Denies any new wounds present, and denies any erythema. West Vallejo PA-C [address], [place], [address], [facility] 04/13/2025 10:41:02
--- OUTSIDE RECORDS SUMMARY | 2025-06-03 00:44 | XMS_ITS | Continuity of Care Document ---
Author Organization [place] - [facility], [facility] A[facility] [address] Address [address] [place] [address] Care Team Providers Care Research Quality Assurance Analyst Name Role Phone RICK RENE Primary Care Provider [phone] Assessment Encounter Date Assessment Date Assessment LastModified by Organization Details LastModified Time 05/09/2025 05/09/2025 I am seeing the patient [...] record ed. Surgeries None record ed. Imaging XR, foot, 3 or more view - room 114 3V R foot 025 10/21/20 25 [email or web address] [facility] Office, [address], [facility] [address], [address], 05/09/2025 11:28:07 Medication Orders None record ed. Patient TargetsNo targets recorded. Patient InstructionsNo instructions recorded. Reason for Referral None Reported. Results Created Date Observation Date Name Description Value Unit Range Abnormal Flag Note LastModifiedBy Organization Detail LastModifiedTime 05/09/2005/09/2025 XR, foot, 3 or more view [email or web address] ?Encry pted=s hAaTro YD8dLq bEUv6g %2BXZw aYqtaq 0bqfl% 2Fg9IQ a4ajBk vP9nXo QUaueC m3YtLR FvZlgJ JJ8mAn HZtai3 2q4610 AC0KlY nyCU6C jKiQtr MwF INTERFACE [facility] Office [address] [facility] [address], [address], 05/09/2025 11:11:49 05/09/20 25 05/09/2025 XR, foot, 3 or more view http:/ [email or web address] ?Encry pted=s hAaTro YD8dLq bEUv6g %2BXZw aYqtaq 0bqfl% 2Fg9IQ a4ajBk vP9nXo QUaueC m3YtLR FvZlgJ JJ8mAn HZtai3 0n7669 AC0KlY nyCU6C jKiQtr MwF INTERFACE [facility] Office [address] [facility] [address], [address], 05/09/2025 11:11:51 Result Notes Documentation Provider Name and Address Organization Details Recorded Time Xr, Foot, 3 Or More View : [email or web address] Encrypted=bkOlUhkMO3bTerI Uv6g%7RQLqpKxdpw8rpvv%2Fg 4ZRr3zxZghG7eSwQUqmvWi8Vj VOPxDouYTV7lGaXKwqt23h617 4CW0MiEphZU0JqMwEvfUvJ Not Available Replaced by [facility] 05/09/2025 11:11: 50 Xr, Foot, 3 Or More View : [email or web address] Encrypted=miYmUauZG1sMjtK Uv6g%9TBDjeZxfmu6mvfm%2Fg 8OIz3lrHqcA2gLqHTdutDt6Qs CLNxScgDHV9sJpBNgfq96h233 5WG6PyKhyYA3XlLgTduCkP Not Available Replaced by [facility] 05/09/2025 11:11: 52 Problems Name Problem SNOMED Code Status Onset Date Resolution Date Notes Provider Name and Address Organization Details Recorded Time No complaints 056115019 Active Status : 'A'; Not Available Replaced by [facility] 4 09:25:07 Hammer toe 099094369 Active 2024 West Vallejo PA-C [address], [place], [address] , [facility] 5 08:09:18 Osteomyeli tis of right foot 7613925601406 100 Active 2024 West Vallejo PA-C [address], [place], [address] , [facility] 5 08:09:35 Problem Notes None recorded. Procedures Surgical History Date Name Laterality Status Provider Name and Address Organization Details Recorded Time Knee Surgery completed FRANKIE JIMENEZMACHELLE [facility] 08/04/2024 13:45:02 [facility]er [facility] 08/04/2024 13:45:02 Ankle/Foot Surgery completed FRANKIE TONYMACHELLE [facility] 08/04/2024 13:45:02 Hand Surgery completed FRANKIE TONYMACHELLE [facility] 08/04/2024 13:45:02 Head or Neck Surgery [facility] 08/04/2024 13:45:02 Imaging Results None recorded. [...] Updated DateTime 05/09/2025 185.42 cm 25.7 kg/m2 96101.51 g 98 [degF] VENKAT ROSALES [place] [facility] [place] [facility] 05/09/2025 11:04:44 Social History Question Answer Notes LastModified by [employer] Details LastModified Time Tobacco Smoking Status Never Smoker FRANKIE fontana [place] [facility] [place] [facility] 08/04/2024 13:45:01 What Is Your Relationship Status? Information not available 08/04/2024 How Many Years Have You Smoked Tobacco? 0 Information not available 08/04/2024 Sex: Unknown Functional Status Question Answer Note LastModified by Organizat [employer] Details LastModified Time How many times per [...] ICD10 Code Diagnosis IMO Codes Diagnosis Note [id number] DONALD Collins - [place] [address] [place] [address] 04/13/2025 09:21:46 04/24/2025 09:20:15 Hammer toe 124993134 M20.41 30830776 Osteomyeli tis of right foot 3139672293 017254 M86.9 16881595 [id number] DONALD Johnson - [place] [place] [address] 05/09/2025 10:54:45 05/18/2025 08:48:47 Pain in right foot 7402887414 19547 M79.671 299396 Postoperative visit 1836 04170 Z48.89 89216265 Health Concerns Section Related Observation LastModified by Organization Detai ls LastModified Time None Recorded Concern Status LastModified by Organization Details LastModified Time None Recorded Payers Encounter Date Sequence Insurance Name Policy Number Policy Haney Covered Member ID Haney Member ID Guarantor Name 05/09/2025 1 [place] Michael Martinez [id number] Michael Martinez 05/09/2025 2 FOR LIFE ( - MEDICARE SUPPLEMENT) Michael Martinez [id number] Michael Martinez
--- OUTSIDE RECORDS SUMMARY | 2025-06-03 00:44 | XMS_ITS | Continuity of Care Document ---
Author Organization [place] - [facility], HOLLY Painter 3rd floor Address [address] [place] [address] Care Team Providers Care Curtains And Draperies Salesperson Name Role Phone ESTEFANYRICK MCNAIR Primary Care Provider Assessment No assessment recorded. Plan of Treatment Reminders Order Date Submit Date Provider Last Modified By Organization Details Last Modified Time Details Appointments POST OP 15 2024 12:30P M Reza Cifuentes MD Not available Not available Not available Lab None recorded. Referral None recorded. Procedures None recorded. Surgeries orthopaed ic surgery (SURG) 2024 025 [email or web address] [place], [address], [place], [address], 04/20/2025 08:51:35 Imaging XR, foot, 3 or more view 2024 025 [email or web address] [facility] Office, [address], [facility] [address], [place], [address], 03/28/2025 08:41:16 Medication Orders None recorded. Patient TargetsNo targets recorded. Patient InstructionsNo instructions recorded. Reason for Referral None Reported. Results Created Date Observation Date Name Description Value Unit Range Abnormal Flag Note LastModifiedBy Organization Detail LastModifiedTime 03/28/2003/28/2025 XR, foot, 3 or more view [email or web address]:/ [email or web address] ?Encry pted=s hAaTro YD8dLq bEUv6g %2BXZw aYqtaq 0bqfl% 2Fg9IQ a4ajBk vP9nXo QUaueC m3YtLR FvZlgJ JJ8mAn HZtai3 4t7385 AC0Klb HyHWaS mKiQtr MwF INTERFACE [facility] Office [address], [place], [address], 03/28/2025 08:40:53 03/28/20 25 03/28/2025 XR, foot, 3 or more view [email or web address]:/ [email or web address] ?Encry pted=s hAaTro YD8dLq bEUv6g %2BXZw aYqtaq 0bqfl% 2Fg9IQ a4ajBk vP9nXo QUaueC m3YtLR FvZlgJ JJ8mAn HZtai3 8a6244 AC0Klb HyHWaS mKiQtr MwF INTERFACE [facility] [address] [facility] [address], [place], [address], 03/28/2025 08:40:55 03/28/20 25 03/23/2025 XR, toe(s ), 2 or more view No observ ation record ed. BARCODE Not Available 2024 10:34:00 05/09/2005/09/2025 XR, foot, 3 or more view [email or web address] ?Encry pted=s hAaTro YD8dLq bEUv6g %2BXZw aYqtaq 0bqfl% 2Fg9IQ a4ajBk vP9nXo QUaueC m3YtLR FvZlgJ JJ8mAn HZtai3 8t4458 AC0KlY nyCU6C jKiQtr MwF INTERFACE [facility] Office [address] [facility] [address], [place], [address], 05/09/2025 11:11:49 05/09/2005/09/2025 XR, foot, 3 or more view http:/ [email or web address] ?Encry pted=s hAaTro YD8dLq bEUv6g %2BXZw aYqtaq 0bqfl% 2Fg9IQ a4ajBk vP9nXo QUaueC m3YtLR FvZlgJ JJ8mAn HZtai3 0i3360 AC0KlY nyCU6C jKiQtr MwF INTERFACE [facility] [address], [place], [address], 05/09/2025 11:11:51 Result Notes Documentation Provider Name and Address Organization Details Recorded Time Xr, Foot, 3 Or More View : [email or web address] Encrypted=etDjZtpHM8rRxwI Uv6g%6NHJnhLdavj2vsqe%2Fg 4WLs4jdFanZ4fPaGAvyjJk1Jw QOZiEphDAO0zJqROxli30p079 5RB0XthJmIYjXfRiHybInL Not Available [facility] 03/28/2025 08:40: 54 Xr, Foot, 3 Or More View : [email or web address] Encrypted=niJdLmrSJ7mQpbH Uv6g%9RMAarIpcqx2yvdc%2Fg 5RXg7kiGnnD6dGgJTutvPl8Ej XSQrPyjDXC2zMhSMjnw63c977 9CF0TscLdXExKhYqPoxEgD Not Available [facility] 03/28/2025 08:40: 55 Problems Name Problem SNOMED Code Status Onset Date Resolution Date Notes Provider Name and Address Organization Details Recorded Time No complaints 875021451 Active Status : 'A'; Not Available [facility] 4 09:25:07 Hammer toe 357818839 Active 2024 [place] PA-C [address], [place], [address] , [place] - [facility] 08:09:18 Osteomyeli tis of right foot 8821767640567 100 Active 2024 [place] PA-C [address], [place], [address] , [facility] 08:09:35 Problem Notes None recorded. Procedures Surgical History Date Name Laterality Status Provider Name and Address Organization Details Recorded Time Knee Surgery completed [facility] 08/04/2024 13:45:02 Shoulder Surgery completed [facility] 08/04/2024 13:45:02 Ankle/Foot Surgery completed [facility] 08/04/2024 13:45:02 Hand Surgery completed [facility] 08/04/2024 13:45:02 Head or Neck Surgery completed [facility] 08/04/2024 13:45:02 Imaging Results None recorded. [...] Updated DateTime 03/28/2025 185.42 cm 25.7 kg/m2 21550.51 g SHABANA TRIPP [place] [facility] 03/28/2025 08:31:29 Social History Question Answer Notes LastModified by Organizat ion Details LastModified Time Tobacco Smoking Status Never Smoker FRANKIE fontana [place] [facility] 08/04/2024 13:45:01 What Is Your Relationship [...] ICD10 Code Diagnosis IMO Codes Diagnosis Note [id number] DONALD Jackman 3rd floor [address] [facility] [place] [address] 03/28/2025 08:21:55 04/05/2025 11:04:53 Pain in right foot 8661308877 41761 M79.671 451559 Hammer toe 823732786 M20 .41 [id number] Health Concerns Section Related Observation LastModified by Organization Detai ls LastModified Time None Recorded Concern Status LastModified by Organization Details LastModified Time None Recorded Payers Encounter Date Sequence Insurance Name Policy Number Policy Haney Covered Member ID Haney Member ID Guarantor Name 03/28/2025 1 [place]ICARE [place]: [employer] Michael Martinez [id number] Michael Martinez 03/28/2025 2 FOR LIFE ( - MEDICARE SUPPLEMENT) Michael Martinez [id number] Michael Martinez Notes Date Note Type Note Provider Name and Address Organization Details Recorded Time 03/28/2025 text/html I am seeing this patient [...] concern for osteomyelitis. He was sent to [facility]. He was seen at [facility] and x-rays were concerning for osteomyelitis and loosening of the third metatarsal screw. He was admitted and there was concern that he had a small pustule over the third metatarsal head. He was seen by orthopedics at [facility] and by infectious disease. Per infectious disease [...] patient today and reviewed his notes from [facility]. I reviewed the case with Dr. Cifuentes [...] our office immediately. Oanh Prado PA-C [address], [place], [address], [facility] - [facility] 03/30/2025 15:18:02
== END 2025-06-02 16:21 | disposition home or self-care (01) ==
LOC: HO.HUSH 15:38
PROVIDERS: PCP Nurse Practitioner Family; Visit Provider Urology
DX: Z12.5 Encounter for screening for malignant neoplasm of prostate (principal); N40.0 Benign prostatic hyperplasia without lower urinary tract symptoms; N48.6 Induration penis plastica
CPT/HCPCS: 99214

== ENCOUNTER → 2025-06-02 15:38 | Outpatient (BNVA) | payer MEDICARE, OTHER, SELFPAY | PROVIDERS: PCP Nurse Practitioner Family; Visit Provider Urology | DX: N40.0 Benign prostatic hyperplasia without lower urinary tract symptoms (principal); N48.6 Induration penis plastica | CPT/HCPCS: 99212 ==

== ENCOUNTER 2025-06-16 16:38 | Observation (INO) | payer OTHER, MEDICARE, SELFPAY ==
--- OUTSIDE RECORDS SUMMARY | 2025-05-24 10:20 | XMS_ITS ---
Author Organization [facility] Address [address] [place] [address] Care Team Providers Care Package Maker Name Role Phone RICK RENE Primary Care Provider Johnathan John Unavailable [phone] Allergies No Known Allergies REASON FOR VISIT [...] N/A Encounters Encounter Location Date Provider Diagnosis [facility] [address] [place] [address] 05/24/2025 Johnathan Giang Encounter for screen ing for malignant neoplasm [...] Appt Details Provider Name:Johnathan Giang , 07/17/2025 01:40:00 PM, [address] [place] [address] , [place], [place], [phone], History and Physical Notes * HPI (History [...] MICHAEL KIDD DDOB: [birth year] (69 yo M)Acc No.[id number]:05/24/2025 Progress Notes Patient: MICHAEL BRUNO Provider: Sue Giang MD :1955 A ge:69 Y S ex:Male Date:05/24/2025 Address:[address] [place], [place] [id number] Pcp:RICK RENE Subjective: * Chief Complaints: * [...] inpatient and outpatient antibiotics NIDDM Hyperlipidemia Denies [place],CVA,Lung disease,renal disease HTN Iron def anemia- EGD [...] iscellaneous: M arital status: . 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 Social History Verified. N onsmoker; no sig [...] ietary management education, guidance, and counseling, B [place] management provided Y es. Screenings: F all Risk Screening F all Risk Assessment: N o falls in the past year, S creening: N o falls in the past year, P ben of Care: N ot documented, no reason specified. Billing Information: * Procedure Codes: 43324 UPPR GI ENDOSCOPY, DIAGNOSIS. * The named appointment provid er may or may not be the originator of this progress note, and it is not deemed complete until electronically signed by the appointment provider. Sign off status: Pending * Provider: Sue Giang MD Date: 07/24/2024 Generated for Lucero rodriguez/Luiza/Mic on: 08/16/2024 05:35 PM EST
--- NOTE | ~2025-06-16 | XR_ITS ---
CLINICAL HISTORY: chest pain 2 view chest x-ray Comparison: None provided Findings: The lungs are clear. Heart size is normal. No acute fracture. IMPRESSION: 1. No acute findings. This document has been electronically signed by: Freddy Zuniga MD on 06/16/2025 18:09:08
--- NOTE | 2025-06-16 16:42 | ECG_ITS ---
Test Reason : cp Blood Pressure : */* mmHG Vent. Rate : 67 BPM Atrial Rate : 67 BPM P-R Int : 278 ms QRS Dur : 110 ms QT Int : 402 ms P-R-T Axes : * 224 174 degrees QTcB Int : 424 ms Sinus rhythm with 1st degree A-V block Right superior axis deviation Pulmonary disease pattern Nonspecific ST and T wave abnormality Abnormal ECG When compared with ECG of 05-Oct-2010 10:44, No significant changes seen Referred By: Helena Leyva Electronically Signed By: JUAN R AGARWAL
[2025-06-16 16:59] VITALS: BP 130/77; PULSE 83; RESP 20; TEMP 37; O2SAT 100; BMI 28.3
--- NOTE | 2025-06-16 16:59 | ED_ITS ---
HPI - General Adult General Chief complaint: Recheck/Abnormal Lab/Rx Stated complaint: irregular ECG (sent by ) Time Seen by Provider: 06/16/25 17:55 Source: patient Mode of arrival: ambulatory Limitations: no limitations History of Present Illness ED Provider: Dr. Varghese HPI narrative: 69-year-old male history of diabetes, hypertension, hyperlipidemia, Méndez esophagus presented hospital today for evaluation of indigestion feeling in his sternal area. Patient stated this has been going on since Thursday. The intensity has been intermittent in nature. He noticed that it is a discuss worse after a meal. However when he belched the pain improves. He has been trying to take some Tums with minimal relief. Due to this consistent and persistent of the symptoms the patient message his primary care doctor then went to urgent care. Urgent care was concerned about a first-degree heart block in his send the patient's here for further cardiac evaluation. Related Data Home Medications ?Medication ?Instructions ?Recorded ?Confirmed multivitamin 1 tab PO BEDTIME 06/06/20 omeprazole 20 mg capsule,delayed 20 mg PO DAILY@0630 1 08/06/19 05/08/25 release cetirizine 10 mg tablet (All Day 10 mg PO DAILY PRN Al lergy Symptoms 02/12/23 05/08/25 Allergy (cetirizine)) atorvastatin 20 mg tablet 20 mg PO BEDTIME 03/23/25 ferrous sulfate 325 mg (65 mg 325 mg PO BEDTIME 05/08/25 iron) tablet fluticasone propionate 50 1 spray intranasal BID PRN A llergy 03/23/25 05/08/25 mcg/actuation nasal Symptoms spray,suspension Previous Rx's ?Medication ?Instructions ?Recorded blood sugar diagnostic (FreeStyle #300 ea 07/04/20 Lite Strips) lancets 28 gauge (FreeStyle #300 ea 07/04/20 Lancets) vancomycin 1 gram/250 mL in 0.9 % 1 g (250 mL) IV Q12H 03/27/25 sodium chloride intravenous dulaglutide 3 mg/0.5 mL 3 mg (0.5 mL) subcut QWEEK # 6 mL 04/17/25 subcutaneous pen injector (Trulicity) hydrochlorothiazide 25 mg tablet 25 mg PO DAILY #90 ta bs 04/20/25 lisinopril 10 mg tablet 10 mg PO DAILY #90 tabs 09/13 metformin 1,000 mg tablet 1,000 mg PO BID #180 tabs pentoxifylline 400 mg 400 mg PO BID 90 days #180 t abs 06/02/25 tablet,extended release vitamin E (dl, acetate) 450 mg 450 mg PO DAILY 90 days #90 caps 06/02/25 (1,000 unit) capsule tadalafil 5 mg tablet 5 mg PO DAILY 90 days #90 ta bs 06/05/25 Allergies Allergy/AdvReac Type Severity Reaction Status Date / Time No Known Allergies (No Known Allergy Verified 06/16/25 17:01 Allergies*) Review of Systems 2 Review of Systems: Pertinent review of systems as mentioned in HPI. All other system otherwise negative. [facility] Past Medical History [facility] Narrative: Medical history as mentioned in HPI Medical History (Updated 06/16/25 @ 20:40 by Helen Varghese DO) Erectile dysfunction Peyronie's disease Hematoma of right third toe Diabetes GERD (gastroesophageal reflux disease) Barretts esophagus Patellofemoral arthritis of left knee Type 2 diabetes mellitus with diabetic polyneuropathy Subjective memory complaints Enlarged prostate Renal insufficiency Iron deficiency Hyperlipidemia HTN (hypertension) Hyperlipidemia LDL goal <100 Surgical History (Updated 06/08/25 @ 17:21 by Giovanni Henriquez [facility]) History of right inguinal hernia repair History of left knee surgery History of shoulder surgery History of tonsillectomy History of nasal surgery Hx of esophagogastroduodenoscopy Hx of colonoscopy History of foot surgery Family History Family History Father Diabetes Mother Lung cancer Son No problems noted. Son No problems noted. Son No problems noted. Son No problems noted. Son No problems noted. Son No problems noted. Daughter No problems noted. Daughter No problems noted. Paternal Grandmother Diabetes Social History Social History Household Members: Spouse Housing: House Do you presently have visiting nurse or other home services: No Alcohol intake: current Alcohol intake frequency: holidays/special occasions only Alcohol type: beer, wine, hard liquor and other Patient Tobacco Use Status: Never used Tobacco Smoked in Last 30 Days: No e-Cigarette/Vaping Use: Never Used Second Hand Smoke Exposure: No Use of substances other than those prescribed or required for medical reasons: No Advance Directives: No Advance Directives Information Provided: No service: No Current occupational status: retired Cognitive needs: No Hearing needs: No Vision needs: Yes Physical Exam ED Exam Exam: General: Pleasant, no distress, interacting appropriately Head: Normacephalic, atraumatic ENT: oral mucosa moist, neck supple, no tracheal deviation Cardiovascular: regular rate, regular rhythm, no murmurs, rubbing, gallops Respiratory: CTAB, no wheeze, rales, rhonchi Gastrointestinal: Soft, non distended, epigastric tenderness on palpation Neurological: Awake and alert, no facial droop noted Skin: Warm and dry Psychiatric: Appropriate mood and thoughts Vital Signs: Vital Signs - 24 hr 06/16/25 16:59 06/16/25 17:44 06/16/25 18:23 Temperature 98.6 F 98.6 F 98.2 F Pulse Rate 83 83 80 Respiratory Rate 20 20 16 Blood Pressure 130/77 130/77 124/66 Pulse Oximetry 100 100 100 Oxygen Delivery Method Room Air Room Air Room Air BMI result Body Mass Index 28.3 Course Course Course Narrative: Rapid medical examination performed in triage by Helena Leyva PA-C: Patient is a 69 year old assigned male at presenting to the emergency department with epigastric pain. Detailed physical exam and review of systems are deferred to the home health clinician. EKG, labs, imaging ordered. Patient placed back in the waiting room pending room availability and results. Medications Administered Discontinued Medications Generic Name Dose Route Start Last Admin Trade Name Freq PRN Reason Stop Dose Admin Al Hydroxide/Mg Hydroxide 30 ml 06/16/25 18:40 06/16/25 18:51 Magnesium Hydrox/Alum Hydrox 30 Ml Oral.Susp PO 06/16/25 18:41 30 ml ONCE ONE Administration Aspirin 324 mg 06/16/25 19:31 06/16/25 19:36 Aspirin 81 Mg Tab.Chew PO 06/16/25 19:32 324 mg ONCE ONE Administration Lidocaine HCl 15 ml 06/16/25 18:40 06/16/25 18:51 Lidocaine Hcl Viscous 2 % 15 Ml Solution MUCOUS MEM 06/16/25 18:41 15 ml ONCE ONE Administration Magnesium Oxide 800 mg 06/16/25 18:45 06/16/25 18:50 Magnesium Oxide 400 Mg Tablet PO 06/16/25 18:46 800 mg ONCE ONE Administration Medical Decision Making Medical Decision Making [facility] Narrative: This is a 69-year-old male history of hypertension hyperlipidemia diabetes, Méndez's esophagus presented hospital today for evaluation of indigestion in his sternal aspect of his chest. I suspect this is likely gastric reflux in nature however given patient's risk factor we will pursue ACS workup including EKG, troponins basic lab work and chest x-ray. GI cocktail will be given to the patient at this time. We will plan to reassess patient afterward. He is still complaining of some indigestion feeling in his chest. I review his EKG no sign of STEMI. After GI cocktail the patient is still complaining of indigestion and epigastric pain. He stated that have minimal relief. Patient is taken Taladafil, we will hold off on nitroglycerin at this time. Aspirin will be loaded. Given patient's risk factor he has a heart score of 5. We will plan to admit patient for chest pain observation. Differential Diagnosis Differential Diagnoses: The differential diagnosis associated with the presentation includes Gastritis, GERD, ACS, STEMI Lab Data [facility] Lab Attestation statement: I reviewed the patient's lab results. 06/16/25 17:33 06/16/25 17:33 Labs: Lab Results 06/16/25 06/16/25 Range/Units 17:33 19:41 WBC 5.6 (4.8-10.8) X10*3/uL RBC 4.91 (4.60-5.80) X10*6/uL Hgb 13.7 L (14.0-18.0) g/dl Hct 40.9 L (42.0-52.0) % MCV 83.3 (80.0-98.0) fL MCH 27.9 (27.0-33.0) pg MCHC 33.5 (31.0-36.0) g/dl RDW 15.4 (11.0-16.0) % Plt Count 302 (160-400) X10*3/uL MPV 8.7 L (9.4-12.4) fL Immature Gran % (Auto) 0.2 (0.0-0.4) % Neut % (Auto) 61.3 (45-73) % Lymph % (Auto) 24.5 (20-40) % [place] % (Auto) 10.8 (2-11) % Eos % (Auto) 2.1 (0-4) % Baso % (Auto) 1.1 (0-2) % Lymph # (Auto) 1.4 (1.2-4.9) X10*3/uL [place] # (Auto) 0.6 (0.1-1.2) X10*3/uL Eos # (Auto) 0.1 (0.0-0.4) X10*3/uL Baso # (Auto) 0.1 (0.0-0.2) X10*3/uL Abs Immat Gran (auto) 0.01 (0.00-0.03) X10*3/uL Absolute Neuts (auto) 3.5 (2.0-8.3) x10*3/uL Absolute Nucleated RBC 0.000 (0.0-0.012) X10*3/uL Nucleated RBC % (auto) 0.0 (0.0-0.2) /100WBC Sodium 141 (135-145) mmol/L Potassium 3.7 (3.3-5.1) mmol/L Chloride 107 (96-108) mmol/L Carbon Dioxide 23 (22-29) mmol/L Anion Gap 15 (12-20) BUN 36 H (9-16) mg/dL Creatinine 1.45 H (0.5-1.4) mg/dL Estim Creat Clear Calc 51.6 Estimated GFR 48 Random Glucose 112 (60-115) mg/dL Calcium 9.8 (8.4-10.2) mg/dL Magnesium 1.5 L (1.6-2.6) mg/dL Total Bilirubin 0.6 (0.0-1.0) mg/dL AST 48 H (5-37) U/L ALT 37 (0-40) U/L Alkaline Phosphatase 68 (39-117) U/L Troponin I High Sens 6.1 7.1 (<3.5-35.0) ng/L Total Protein 7.0 (6.5-8.0) g/dL Albumin 4.9 (3.5-5.0) g/dL Lipase 25 (8-78) U/L Independent Interpretation I performed an independent interpretation of an: EKG and Plain X-Ray Radiology Impression Discussion of test interpretation with radiology: I have reviewed the radiologist's reading. Discharge Plan Discharge Clinical Impression: Chest pain Patient Disposition: Admitted As Inpatient
--- OUTSIDE RECORDS SUMMARY | 2025-06-16 17:34 | XMS_ITS | Clinical Summary ---
Author Organization [facility] Address [address] [place] [address] Phone Care Team Providers Care Hand Sander Name Role Phone Giovanni Henriquez NP Primary Care Provider [phone] Allergies No known active allergies Medications atorvastatin [...] mouth 1 (one) time each day Active [place]-3 Fatty Acids (Fish Oil) 1000 MG capsule [...] to complete this topic Insurance Medicare [facility] Medicare [facility] Care Teams Hand Sander Relationship Specialty Start Date End Date Giovanni Henriquez NP [facility] [place] [address] PCP - General Nurse Practitioner 06/21/21
--- OUTSIDE RECORDS SUMMARY | 2025-06-16 17:34 | XMS_ITS | Patient Health Record ---
Author Organization [facility] Address [address] [place] [address] Care Team Providers Care Minute Clerk Name Role Phone RICK RENE Primary Care Provider Johnathan John [phone] Allergies No Known Allergies Reason For Referral [...] Status Risk Notes Problem Diverticulitis of colon (724320210) Diverticulitis of large intestine without perforation or abscess without bleeding (K57.32) Active confirmed Problem Screening for malignant neoplasm of colon (941911666) Encounter for screening for malignant neoplasm of colon (Z12.11) Active confirmed Problem Iron deficiency anemia (09682539) Iron deficiency anemia, unspecified iron deficiency anemia type (D50.9) Active confirmed Problem Reflux esophagitis (360622153) Reflux esophagitis (K21.0) Active confirmed Problem Méndez esophagus (264788991) 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 Problem Colorectal cancer (6570964153) Colorectal cancer (C19) Active confirmed Problem Méndez's esophagus (141812486) 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 Problem Gastroesophageal reflux disease with esophagitis (disorder) (431049220) Gastroesophageal reflux disease with esophagitis without hemorrhage [...] N/A Encounters Encounter Location Date Provider Diagnosis [facility] [address] [place] [address] 05/24/2025 Johnathan Giang Encounter for screen ing [...] Provider Name:Johnathan Giang , 07/17/2025 01:40:00 PM, [address] [place] [address] , [place], [place], [id number], Insurance Providers Payer Name Payer Address Payer Phone Subscriber Number Group Number Insured Name Patient Relationship to Insured Coverage Start Date Coverage End Date MEDICARE OF [place] [address] [place] [address] [id number] MICHAEL KIDD Self - patient is the insured Mophie [address] [place] [address] [id number] MARTI MICHAEL Self - patient is the insured Medical (General) History Medical History History ICD Code Screening colonoscopy 02-14- 009- negative except for mild sigmoid diverticulosis and internal hemorrhoids Diverticulitis on CT scan 2015- treated with inpatient and outpatient antibiotics NIDDM Hyperlipidemia Denies MT,CVA,Lung disease,renal disease HTN Iron def anemia- EGD [...]
--- OUTSIDE RECORDS SUMMARY | 2025-06-16 17:35 | XMS_ITS | Patient Health Record ---
Author Organization [facility] René Michaelsley Address [address] [place] [address] Care Team Providers Care Client Service And Consulting Manager Name Role Phone Giovanni Choe Primary Care Provider Unav ailable Maurizio Rivas Unavailable [phone] Allergies No Known Allergies Reason For Referral [...] meal s Orally Twice a day Active Ttacsg-Jvrfcxfdm-SDM Complex - as directed Orally 01/25/2024 Active [...] W/U Status Risk Notes Problem Plantar wart (54962069) Plantar wart (B07.0) Active confirmed Problem Type II diabetes mellitus without complication (905931599) Type 2 diabetes mellitus without complication (E11.9) Active confirmed Plan Of Treatment Pending Test Test Name Order Date [id number] Destruction, -02/05/2024 Insurance Providers Payer Name Payer Address Payer Phone Subscriber Number Group Number Insured Name Patient Relationship to Insured Coverage Start Date Coverage End Date Medicare National [employer] [address] [place] [address] [id number] Michael Martinez Self - patient is the insured for [employer] [address] [place] [address] [id number] Michael Martinez Self - patient is the [...]
[2025-06-16 17:41] LABS: MANUAL DIFF FLAG NO
[2025-06-16 17:44] VITALS: BP 130/77; PULSE 83; RESP 20; TEMP 37; O2SAT 100
[2025-06-16 17:52] LABS: Hematocrit 40.9 % (42.0-52.0); Hemoglobin 13.7 g/dl (14.0-18.0); Imm Gran Abs Auto 0.01 X10*3/uL (0.00-0.03); Imm Gran Pct Auto 0.2 % (0.0-0.4); Lymphocytes Absolute Auto 1.4 X10*3/uL (1.2-4.9); Mean Corpuscular HGB Conc 33.5 g/dl (31.0-36.0); Mean Corpuscular Hemoglobin 27.9 pg (27.0-33.0); Mean Corpuscular Volume 83.3 fL (80.0-98.0); NRBC Abs Auto 0.000 X10*3/uL (0.0-0.012); NRBC Pct Auto 0.0 /100WBC (0.0-0.2); Platelet Count 302 X10*3/uL (160-400); Red Blood Count 4.91 X10*6/uL (4.60-5.80); White Blood Count 5.6 X10*3/uL (4.8-10.8)
[2025-06-16 17:56] LABS: Alanine Aminotransferase 37 U/L (0-40); Albumin Level 4.9 g/dL (3.5-5.0); Alkaline Phosphatase 68 U/L (39-117); Anion Gap 15 (12-20); Aspartate Amino Transferase 48 U/L (5-37); Blood Urea Nitrogen 36 mg/dL (9-16); Calcium 9.8 mg/dL (8.4-10.2); Carbon Dioxide 23 mmol/L (22-29); Chloride 107 mmol/L (96-108); Creatinine Clr Calc Pharmacy 51.6; Estimated Glomerular Filt Rate 48; Lipase 25 U/L (8-78); Magnesium 1.5 mg/dL (1.6-2.6); Potassium 3.7 mmol/L (3.3-5.1); Sodium 141 mmol/L (135-145); Total Protein 7.0 g/dL (6.5-8.0)
[2025-06-16 18:03] LABS: Troponin-I High Sensitivity 6.1 ng/L (<3.5-35.0)
[2025-06-16 18:23] VITALS: BP 124/66; PULSE 80; RESP 16; TEMP 36.8; O2SAT 100
[2025-06-16] MEDS: Lidocaine HCl Viscous 2 % 15 ML SOLUTION MUCOUS MEM (18:51)
[2025-06-16] MEDS: Magnesium Hydrox/Alum Hydrox 30 ML ORAL.SUSP PO (18:51)
--- NOTE | 2025-06-16 19:49 | ECG_ITS ---
Test Reason : CHEST PAIN Blood Pressure : */* mmHG Vent. Rate : 69 BPM Atrial Rate : 69 BPM P-R Int : 308 ms QRS Dur : 114 ms QT Int : 404 ms P-R-T Axes : 26 -42 32 degrees QTcB Int : 432 ms Sinus rhythm with 1st degree A-V block Left axis deviation Moderate voltage criteria for LVH, may be normal variant ( R in aVL , Curtis product ) Abnormal ECG When compared with ECG of 16-Jun-2025 16:51, [place] shift Referred By: Helen Varghese Electronically Signed By: JUAN R AGARWAL
--- NOTE | 2025-06-16 19:51 | PC.NURSE ---
pt requested something to eat. RN checked with MD DEANDRE ok'd. Pt eating with drink at bedside. Bed at lowest position. call pelletier within reach.
[2025-06-16 20:03] LABS: Troponin-I High Sensitivity 7.1 ng/L (<3.5-35.0)
--- NOTE | 2025-06-16 20:45 | PM.IMHP ---
History of Present Illness Date of Service: 06/16/25 Attending physician on admission: Keron Andrea Chief Complaint: chest pain Patient is a 69-year-old male with history of DMII on Trulicity last 4 years, Barretts esophagus, hyperlipidemia, PAD, hypertension, hammertoe with recent surgery and revision for hardware removal, ED on taldalafil, BPH, OA, CKF 3a, Allergiuc rhinits, EMEKA on iron reports worsening epigastric pain since last with no reprieve using Tums with notable exertional fatigue for the last 2 weeks and patient decided to be seen at the urgent care center. At the urgent care center there was concern for first degree heart block and patient was ambulated to the emergency department. ED provider initiated workup for epigastric pain and abnormal EKG. Initial EKG was sinus rhythm with first-degree AV block with nonspecific ST and T-wave abnormalities. IL interval 278. Repeat EKG noted the same rhythm with a IL interval of 308. No evidence of STEMI. Patient did receive GI cocktail of milk of magnesia, lidocaine via mucous membranes and symptoms persisted with upper GI epigastric pain. Nitroglycerin was avoided due to recent use of Tadalafil. Patient then received 325 mg of aspirin and patient's symptoms resolved to the point that patient could eat a sandwich without discomfort. Patient is due for an upper scope July 17 with GI as he has one every 3 years noting his history of Méndez's esophagus. Patient has been using alcohol intermittently socially in his last use was 2 glasses of wine yesterday. Pt does report that he had a stress test approximately 15 years ago at [facility] for chest pain vs reflux and the results were negative for cardiac event back then. Patient does not currently have a leukocytosis and H&H of 13.7 and 40.9. Electrolytes stable and magnesium 1.5. Patient received 800 mg of oral magnesium in the ED. Patient's renal function at baseline with a creatinine of 1.45, creatinine clearance 51.6 and a GFR 48. Troponins flat at 6.1 then 7.1. TSH 2.April. Last hemoglobin A1c 6.7 also in April 2025. Review of Systems Review of Systems: Patient currently denies any chest pain, reflux, shortness of breath at rest or with exertion, nausea or vomiting. Patient is not having any chronic issues with constipation noting his on Trulicity. Patient denies any diarrhea. Patient denies any recent falls or trauma. Patient denies any headaches, visual changes or history of stroke or seizure. Yes all other systems are reviewed and are negative [facility] Medical History (Updated 06/16/25 @ 22:07 by OVI Gillespie) PAD (peripheral artery disease) Erectile dysfunction Peyronie's disease Hematoma of right third toe Diabetes GERD (gastroesophageal reflux disease) Barretts esophagus Patellofemoral arthritis of left knee Type 2 diabetes mellitus with diabetic polyneuropathy Subjective memory complaints Enlarged prostate Renal insufficiency Iron deficiency Hyperlipidemia HTN (hypertension) Hyperlipidemia LDL goal <100 Cognitive capacity: Alert and orientated x3 Functional capacity: independent ambulation Family History Father Diabetes Mother Lung cancer Son No problems noted. Son No problems noted. Son No problems noted. Son No problems noted. Son No problems noted. Son No problems noted. Daughter No problems noted. Daughter No problems noted. Paternal Grandmother Diabetes Surgical History History of right inguinal hernia repair History of left knee surgery History of shoulder surgery History of tonsillectomy History of nasal surgery Hx of esophagogastroduodenoscopy Hx of colonoscopy History of foot surgery Social History Household Members: Spouse Housing: House Do you presently have visiting nurse or other home services: No Alcohol intake: current Alcohol intake frequency: holidays/special occasions only Alcohol type: beer, wine, hard liquor and other Patient Tobacco Use Status: Never used Tobacco Smoked in Last 30 Days: No e-Cigarette/Vaping Use: Never Used Second Hand Smoke Exposure: No Use of substances other than those prescribed or required for medical reasons: No Advance Directives: No Advance Directives Information Provided: No service: No Current occupational status: retired Cognitive needs: No Hearing needs: No Vision needs: Yes Ebola Risk: Travel/Contact With Anyone From Affected Area/s: No Has Patient Experienced Ebola Symptoms: No Meds Allergies Allergy/AdvReac Type Severity Reaction Status Date / Time No Known Allergies (No Known Allergy Verified 06/16/25 17:01 Allergies*) Active Medications: Current Medications Acetaminophen (Acetaminophen 325 Mg Tablet) 650 mg PO Q6H PRN PRN Reason: Pain, Mild 1-3,fever,headache Albuterol/Ipratropium (Albuterol/Iprat 2.5/0.5mg 3 Ml Ampul.Neb) 3 ml INHALE Q4H PRN PRN Reason: Shortness of Breath/Wheezing Calcium Carbonate (Calcium Carbonate 750 Mg Tab.Chew) 750 mg PO Q4H PRN PRN Reason: Heartburn Enoxaparin Sodium (Enoxaparin Sodium 40 Mg/0.4 Ml Syringe) 40 mg SUBCUT Q24H LOWE[facility] Magnesium Hydroxide (Milk Of Magnesia 30 Ml Oral.Susp) 30 ml PO DAILY PRN PRN Reason: Constipation Ondansetron HCl (Ondansetron Hcl 4 Mg/2 Ml Vial) 4 mg IVPUSH Q8H PRN PRN Reason: Nausea and Vomiting Polyethylene Glycol (Polyethylene Glycol 3350 17 Gm Powd.Pack) 17 gm PO DAILY PRN PRN Reason: Constipation Senna (Sennosides 8.6 Mg Tablet) 17.2 mg PO BEDTIME LOWE[facility] Sodium Chloride (0.9 % Sodium Chloride Flush 3 Ml Syringe) 3 ml IVFLUSH QSHIFT LOWELL Home Medications ?Medication ?Instructions ?Recorded ?Confirmed ?Last Taken ?Type multivitamin 1 tab PO BEDTIME 06/06/20 06/16/25 03/22/25 History omeprazole 20 mg capsule,delayed 20 mg PO DAILY@0630 06/06/20 06/16/25 06/16/25 History release cetirizine 10 mg tablet (All Day 10 mg PO BEDTIME Allergy Symptoms 02/12/23 06/16/25 Unknown History Allergy (cetirizine)) atorvastatin 20 mg tablet 20 mg PO BEDTIME 03/23/25 06/16/25 03/23/25 History ferrous sulfate 325 mg (65 mg 325 mg PO BEDTIME 03/23/25 06/16/25 03/22/25 History iron) tablet fluticasone propionate 50 1 spray intranasal BID PRN Allergy 03/23/25 06/16/25 Unknown History mcg/actuation nasal Symptoms spray,suspension dulaglutide 3 mg/0.5 mL 3 mg subcut COLLINS 06/16/25 06/16/25 06/11/25 History subcutaneous pen injector (Trulicity) lisinopril 10 mg tablet 10 mg PO BEDTIME 06/16/25 06/16/25 Unknown History tadalafil 5 mg tablet 5 mg PO BEDTIME 06/16/25 06/16/25 Unknown History Physical Exam Vital Signs and Narrative: Vital Signs: Last Vital Signs Temp 98.2 F 06/16/25 18:23 Pulse 80 06/16/25 18:23 Resp 16 06/16/25 18:23 BP 124/66 06/16/25 18:23 Pulse Ox 100 06/16/25 18:23 O2 Del Method Room Air 06/16/25 18:23 BMI result Body Mass Index 28.3 Alert and orientated X3, able to give good history. Neuro: CN II-X11 intact, no deficits, visual acuity intact EYES: PERRLA, EOM intact, sclerae nonicteric, conjunctiva pink ENT: hearing intact, no issues with swallowing, uvula midline, lips moist, nares patent no epistaxis Cardiac: S1 S2 RRR, no murmur, no JVD, no edema in Lower ext Pulmonary: lungs clear to auscultation B Abdominal: BS active in all 4 quadrants, no guarding, tenderness, rebounding MSK: strength 5/5 upper and lower extremities : no CVA tenderness no bladder distension Extremities: no edema in lower extremities, PT and DP pulses palpable +2 Psych: mood stable, judgement and insight good Skin: Healed scar top of right foot low toes, no new rashes or lesions Results Labs 06/16/25 17:33 06/16/25 17:33 Labs: Laboratory Results - last 24 hr 06/16/25 06/16/25 17:33 19:41 MCV 83.3 MCH 27.9 MCHC 33.5 RDW 15.4 Plt Count 302 MPV 8.7 L Immature Gran % (Auto) 0.2 Neut % (Auto) 61.3 Lymph % (Auto) 24.5 Gaines % (Auto) 10.8 Eos % (Auto) 2.1 Baso % (Auto) 1.1 Lymph # (Auto) 1.4 Gaines # (Auto) 0.6 Eos # (Auto) 0.1 Baso # (Auto) 0.1 Abs Immat Gran (auto) 0.01 Absolute Neuts (auto) 3.5 Absolute Nucleated RBC 0.000 Nucleated RBC % (auto) 0.0 Anion Gap 15 Estim Creat Clear Calc 51.6 Estimated GFR 48 Random Glucose 112 Calcium 9.8 Magnesium 1.5 L Total Bilirubin 0.6 AST 48 H ALT 37 Alkaline Phosphatase 68 Troponin I High Sens 6.1 7.1 Total Protein 7.0 Albumin 4.9 Lipase 25 ECG Attestation: I personally reviewed and interpreted this ECG as follows: (Sinus rhythm first-degree AV block, IL interval 308, QTC 432 noted left axis deviation no ischemic changes) Prior ECG tracings: available for review Imaging Radiologist's Impressions: Chest x-ray No acute findings Assessment and Plan (1) Chest pain: Qualifiers: Chest pain type: unspecified Qualified Code(s): R07.9 - Chest pain, unspecified Status: Acute (2) First degree heart block: Status: Acute (3) Barretts esophagus: Qualifiers: Méndez's esophagus type: with dysplasia of unspecified degree Qualified Code(s): K22.719 - Méndez's esophagus with dysplasia, unspecified Status: Acute Plan Patient is a 69-year-old male with history of DMII on Trulicity last 4 years, Barretts esophagus, hyperlipidemia, PAD, hypertension, tick bite negative for Lyme/Babeisa, hammertoe with recent surgery and revision for hardware removal, ED on taldalafil, BPH, OA, CKD 3a, Allergiuc rhinits, EMEKA on iron reports worsening epigastric pain since last with no reprieve using Tums and patient decided to be seen at the urgent care center. At the urgent care center there was concern for first degree heart block and patient was ambulated to the emergency department. Patient's chest pain/upper GI symptoms have since resolved after receiving 324 mg of aspirin and the GI cocktail. Patient being admitted under observation for further monitoring and evaluation by Cardiology for possible stress test in the a.m.. Chest pain versus gastric reflux/ history of Méndez's esophagus Patient feeling better after GI cocktail and 324 mg of aspirin Protonix IV x1, omeperazole daily Patient has planned upper EGD July 17 with GI, done every 3 years for follow-up on Méndez's esophagus Continue telemetry ECG no ischemic changes, noted first degree AVB see below Cardiology consulted for chest pain work up noting recent exertional fatigue, hx of stress test 15 years prior Echo ordered for AM, no caffeine Troponins flat 6.1, 7.1, BNP pending Lipid panel pending, patient normally on atorvastatin 20 mg at HS Last hemoglobin A1c 6.25 April 2025 First-degree heart block Pt not currently on AV alexandre blocking agents, Digoxin or other antiarrhythmics Telemetry Echo ordered Cardiology consulted Pt has remote hx of tick bite 2022, tick borne illness work up negative PVD Holding trental in case pt requires stress test DMII SSI AC HS Diabetic Diet Normally on metformin BID Trulicity last 4 years without hx of constipaiton, ileus or SBO AIC 6.7 05/13 HTN Normally on lisinopril, HCTZ, systolic 106, held for now Cardiac low salt diet HLD Lipid panel pending Atorvastatin 20 mg HS Cardiac diet EMEKA H/H stable, MCV WNL Continue iron supplementation DVT prophylaxis: Lovenox Med rec completed Full code status Patient will require at least 1 midnight stay under observation for expert consultation with Cardiology for chest pain rule out, close hemodynamic monitoring/ telemetry and symptomatic treatment of Barretts esophagus/indigestion. Quality Stroke Does the patient have a stroke diagnosis?: No Reason for No Anti-thrombotic by Day Two: N/A - Med Ordered VTE Prior VTE?: No VTE Risk Level:: Medical - moderate - high VTE Device Contraindication: N/A - Device Ordered VTE Drug Contraindication: N/A - Med Ordered
--- NOTE | 2025-06-16 21:51 | PHA.MEDREC ---
Pharmacy Consult ? Medication Reconciliation Pharmacy has completed the medication reconciliation. Spoke with patient to confirm medications. He is no longer on Vancomycin and vitamin E. He administers Trulicity on Sundays, last taken 06/11. He also takes OTC glucosamine chondoitin twice daily, he was unsure what dose. He took all of his morning medications today.
[2025-06-16 22:01] VITALS: BP 113/69; PULSE 65; RESP 14; TEMP 36.7; O2SAT 96
[2025-06-16 22:31] LABS: NT Pro B Type Natriuretic Pept 88.0 pg/mL (<300)
[2025-06-17] MEDS: 0.9 % Sodium Chloride Flush 3 ML SYRINGE IVFLUSH (00:56)
[2025-06-17 02:50] VITALS: BP 106/65; PULSE 64; RESP 19; TEMP 36.7; O2SAT 95
[2025-06-17 05:41] VITALS: BMI 26.9
[2025-06-17 05:59] VITALS: BP 129/74; PULSE 65; RESP 16; TEMP 36.5; O2SAT 98
[2025-06-17 07:04] VITALS: BP 134/75; PULSE 64; RESP 18; TEMP 36.3; O2SAT 96
[2025-06-17 07:14] LABS: Glucose, Whole Blood 113 mg/dL (60-115)
--- NOTE | 2025-06-17 07:24 | P.PNIM_ITS ---
Subjective Subjective Date of Service: 06/17/25 Physical Exam 2 Vital Signs: Vital Signs: Last Vital Signs Temp 97.4 F 06/17/25 07:04 Pulse 64 06/17/25 07:04 Resp 18 06/17/25 07:04 BP 134/75 06/17/25 07:04 Pulse Ox 96 06/17/25 07:04 O2 Del Method Room Air 06/17/25 07:04 BMI result Body Mass Index 26.9 Objective Data Active Medications Acetaminophen (Acetaminophen 325 Mg Tablet) 650 mg PO Q6H PRN PRN Reason: Pain, Mild 1-3,fever,headache Albuterol/Ipratropium (Albuterol/Iprat 2.5/0.5mg 3 Ml Ampul.Neb) 3 ml INHALE Q4H PRN PRN Reason: Shortness of Breath/Wheezing Atorvastatin Calcium (Atorvastatin Calcium 20 Mg Tablet) 20 mg PO BEDTIME LOWELL Calcium Carbonate (Calcium Carbonate 750 Mg Tab.Chew) 750 mg PO Q4H PRN PRN Reason: Heartburn Dextrose (Dextrose 50 % 25 Gm/50 Ml Syringe) 25 gm IVPUSH Q15M PRN; Protocol PRN Reason: per Hypoglycemia Standing Ord. Enoxaparin Sodium (Enoxaparin Sodium 40 Mg/0.4 Ml Syringe) 40 mg SUBCUT Q24H [facility] Last Admin: 06/16/25 22:32 Dose: 40 mg Documented By: MARITZA Ferrous Sulfate (Ferrous Sulfate 324 Mg Tablet.) 324 mg PO BEDTIME [facility] Glucose (Glucose Gel 15 Gm Gel..Gram.) 15 gm PO Q15M PRN; Protocol PRN Reason: per Hypoglycemia Standing Ord. Insulin Human Lispro (Insulin Lispro 100 Unit/Ml 3 Ml Vial) 0 unit SUBCUT QIDACHS [facility]; Protocol Last Admin: 06/17/25 07:17 Dose: Not Given Documented By: ESTEFANY Non-Admin Reason: No Insulin Coverage Magnesium Hydroxide (Milk Of Magnesia 30 Ml Oral.Susp) 30 ml PO DAILY PRN PRN Reason: Constipation Multivitamins/Vitamin C (Multivitamin Tablet) 1 tab PO BEDTIME [facility] Omeprazole (Omeprazole 20 Mg Capsule.) 20 mg PO DAILY@0630 [facility] Last Admin: 06/17/25 05:56 Dose: 20 mg Documented By: BOUCHRA Ondansetron HCl (Ondansetron Hcl 4 Mg/2 Ml Vial) 4 mg IVPUSH Q8H PRN PRN Reason: Nausea and Vomiting Polyethylene Glycol (Polyethylene Glycol 3350 17 Gm Powd.Pack) 17 gm PO DAILY PRN PRN Reason: Constipation Senna (Sennosides 8.6 Mg Tablet) 17.2 mg PO BEDTIME [facility] Last Admin: 06/16/25 22:32 Dose: Not Given Documented By: MARITZA Non-Admin Reason: Patient Refused Sodium Chloride (0.9 % Sodium Chloride Flush 3 Ml Syringe) 3 ml IVFLUSH QSHIFT [facility] Last Admin: 06/17/25 00:56 Dose: 3 ml Documented By: MARITZA Labs 06/16/25 17:33 06/16/25 17:33 Labs: Laboratory Results - last 24 hr 06/16/25 06/16/25 06/17/25 17:33 19:41 07:04 MCV 83.3 MCH 27.9 MCHC 33.5 RDW 15.4 Plt Count 302 MPV 8.7 L Immature Gran % (Auto) 0.2 Neut % (Auto) 61.3 Lymph % (Auto) 24.5 Preble % (Auto) 10.8 Eos % (Auto) 2.1 Baso % (Auto) 1.1 Lymph # (Auto) 1.4 [place]ble # (Auto) 0.6 Eos # (Auto) 0.1 Baso # (Auto) 0.1 Abs Immat Gran (auto) 0.01 Absolute Neuts (auto) 3.5 Absolute Nucleated RBC 0.000 Nucleated RBC % (auto) 0.0 Anion Gap 15 Estim Creat Clear Calc 51.6 Estimated GFR 48 POC Glucose 113 Random Glucose 112 Calcium 9.8 Magnesium 1.5 L Total Bilirubin 0.6 AST 48 H ALT 37 Alkaline Phosphatase 68 Troponin I High Sens 6.1 7.1 NT-Pro-B Natriuret Pep 88.0 Total Protein 7.0 Albumin 4.9 Lipase 25 Quality Stroke Does the patient have a stroke diagnosis?: No Reason for No Anti-thrombotic by Day Two: N/A - Med Ordered VTE Prior VTE?: No VTE Risk Level:: Medical - moderate - high VTE Device Contraindication: N/A - Device Ordered VTE Drug Contraindication: N/A - Med Ordered
--- NOTE | 2025-06-17 08:03 | MHC.CM.PN ---
LOUIS was addressed with Patient at bedside. Patient lives in a house with his /HCP/Cruz, who will transport at dc. Home/self care is Patient's goal and CM has initiated and will follow for dc planning. PCP is Dr. Giovanni Henriquez. Patient is functionally independent.
[2025-06-17 08:19] LABS: Hematocrit 40.1 % (42.0-52.0); Hemoglobin 13.2 g/dl (14.0-18.0); Mean Corpuscular HGB Conc 32.9 g/dl (31.0-36.0); Mean Corpuscular Hemoglobin 27.2 pg (27.0-33.0); Mean Corpuscular Volume 82.7 fL (80.0-98.0); NRBC Abs Auto 0.000 X10*3/uL (0.0-0.012); NRBC Pct Auto 0.0 /100WBC (0.0-0.2); Platelet Count 302 X10*3/uL (160-400); Red Blood Count 4.85 X10*6/uL (4.60-5.80); White Blood Count 4.8 X10*3/uL (4.8-10.8)
[2025-06-17 08:33] LABS: Anion Gap 13 (12-20); Blood Urea Nitrogen 32 mg/dL (9-16); Calcium 9.3 mg/dL (8.4-10.2); Carbon Dioxide 24 mmol/L (22-29); Chloride 107 mmol/L (96-108); Cholesterol 119 mg/dL (<200); Creatinine Clr Calc Pharmacy 48.8; Estimated Glomerular Filt Rate 50; HDL Cholesterol 48 mg/dL (>40); Magnesium 1.7 mg/dL (1.6-2.6); Potassium 4.0 mmol/L (3.3-5.1); Sodium 140 mmol/L (135-145); Triglycerides 100 mg/dL (<150)
[2025-06-17 11:10] VITALS: BP 127/73; PULSE 66; RESP 18; TEMP 36.1; O2SAT 98
[2025-06-17 11:15] LABS: Glucose, Whole Blood 142 mg/dL (60-115)
--- NOTE | 2025-06-17 12:14 | P.DS_ITS ---
DS: Providers Provider Date of Service: 06/17/25 Date of admission: 06/16/25 20:30 Date of discharge: 06/17/25 Primary care physician: Unknown Physician Consults: 06/16/25 21:47 Consult to Cardiology Routine Consulting Provider: [facility] [place] [facility] Reason for consultation: Admitted under observation for chest pain, new first-degree AV block GA 308 Has provider been notified: No DS: Diagnosis Discharge Diagnosis (1) Chest pain: Status: Acute (2) First degree heart block: Status: Acute (3) Barretts esophagus: Status: Acute DS: Summary Hospital Course Hospital Course: Chief Complaint: chest pain Patient is a 69-year-old male with history of DMII on Trulicity last 4 years, Barretts esophagus, hyperlipidemia, PAD, hypertension, hammertoe with recent surgery and revision for hardware removal, ED on taldalafil, BPH, OA, CKF 3a, Allergiuc rhinits, EMEKA on iron reports worsening epigastric pain since last with no reprieve using Tums with notable exertional fatigue for the last 2 weeks and patient decided to be seen at the urgent care center. At the [facility] there was concern for first degree heart block and patient was ambulated to the emergency department. ED provider initiated workup for epigastric pain and abnormal EKG. Initial EKG was sinus rhythm with first-degree AV block with nonspecific ST and T-wave abnormalities. GA interval 278. Repeat EKG noted the same rhythm with a GA interval of 308. No evidence of STEMI. Patient did receive GI cocktail of milk of magnesia, lidocaine via mucous membranes and symptoms persisted with upper GI epigastric pain. Nitroglycerin was avoided due to recent use of Tadalafil. Patient then received 325 mg of aspirin and patient's symptoms resolved to the point that patient could eat a sandwich without discomfort. Patient is due for an upper scope July 17 with GI as he has one every 3 years noting his history of Méndez's esophagus. Patient has been using alcohol intermittently socially in his last use was 2 glasses of wine yesterday. Pt does report that he had a stress test approximately 15 years ago at [facility] for chest pain vs reflux and the results were negative for cardiac event back then. Patient does not currently have a leukocytosis and H&H of 13.7 and 40.9. Electrolytes stable and magnesium 1.5. Patient received 800 mg of oral magnesium in the ED. Patient's renal function at baseline with a creatinine of 1.45, creatinine clearance 51.6 and a GFR 48. Troponins flat at 6.1 then 7.1. TSH 2.April. Last hemoglobin A1c 6.7 also in April 2025. Hospital course Patient was evaluated by Cardiology and EKG redemonstrated first-degree AV block Outpatient cardiology follow-up Chest pain likely secondary to gastric etiology given his established Méndez's esophagus with prompt resolution. No concerns of acute ACS noted. Patient deemed hemodynamically stable for discharge. No changes in meds for chronic medical conditions have been made, patient will follow-up with GI for his endoscopy which is scheduled on July 17. Time spent discussing smoking cessation with patient: more than 10 minutes Status at Discharge Functional status at discharge: independent ambulation Overall status at discharge: patient is back to baseline Time Attestation Discharge Coordination Time (in mins): 45 Quality: Safe Use of Opioids Does Pt have an Active Cancer Diagnosis on the Problem List?: Yes Opioid Measure Date for [facility] Report: 05/18/25 Opioid Measure Time for [facility] Report: 12:14 Quality: Stroke Does the patient have a stroke diagnosis?: No Physical Exam Vital Signs: Vital Signs: Last Vital Signs Temp 97.0 F 06/17/25 11:10 Pulse 66 06/17/25 11:10 Resp 18 06/17/25 11:10 BP 127/73 06/17/25 11:10 Pulse Ox 98 06/17/25 11:10 O2 Del Method Room Air 06/17/25 11:10 BMI result Body Mass Index 26.9 DS: Data Data Completed and Pending Completed studies during hospitalization [Text1]: Procedures Insertion of Infusion Device into Superior Vena Cava, Percutaneous Approach (03/23/25) Ultrasonography of Superior Vena Cava, Guidance (03/23/25) Labs on day of discharge: Laboratory Results - last 24 hr 06/16/25 06/16/25 06/17/25 17:33 19:41 07:04 WBC 5.6 RBC 4.91 Hgb 13.7 L Hct 40.9 L MCV 83.3 MCH 27.9 MCHC 33.5 RDW 15.4 Plt Count 302 MPV 8.7 L Immature Gran % (Auto) 0.2 Neut % (Auto) 61.3 Lymph % (Auto) 24.5 [place] % (Auto) 10.8 Eos % (Auto) 2.1 Baso % (Auto) 1.1 Lymph # (Auto) 1.4 [place] # (Auto) 0.6 Eos # (Auto) 0.1 Baso # (Auto) 0.1 Abs Immat Gran (auto) 0.01 Absolute Neuts (auto) 3.5 Absolute Nucleated RBC 0.000 Nucleated RBC % (auto) 0.0 Sodium 141 Potassium 3.7 Chloride 107 Carbon Dioxide 23 Anion Gap 15 BUN 36 H Creatinine 1.45 H Estim Creat Clear Calc 51.6 Estimated GFR 48 POC Glucose 113 Random Glucose 112 Calcium 9.8 Magnesium 1.5 L Total Bilirubin 0.6 AST 48 H ALT 37 Alkaline Phosphatase 68 Troponin I High Sens 6.1 7.1 NT-Pro-B Natriuret Pep 88.0 Total Protein 7.0 Albumin 4.9 Triglycerides Cholesterol LDL Cholesterol, Calc HDL Cholesterol Lipase 06/17/25 06/17/25 07:36 11:07 WBC 4.8 RBC 4.85 Hgb 13.2 L Hct 40.1 L MCV 82.7 MCH 27.2 MCHC 32.9 RDW 15.4 Plt Count 302 MPV 8.8 L Immature Gran % (Auto) Neut % (Auto) Lymph % (Auto) [place] % (Auto) Eos % (Auto) Baso % (Auto) Lymph # (Auto) [place] # (Auto) Eos # (Auto) Baso # (Auto) Abs Immat Gran (auto) Absolute Neuts (auto) Absolute Nucleated RBC 0.000 Nucleated RBC % (auto) 0.0 Sodium 140 Potassium 4.0 Chloride 107 Carbon Dioxide 24 Anion Gap 13 BUN 32 H Creatinine 1.40 Estim Creat Clear Calc 48.8 Estimated GFR 50 POC Glucose 142 H Random Glucose 112 Calcium 9.3 Magnesium 1.7 Total Bilirubin AST ALT Alkaline Phosphatase Troponin I High Sens NT-Pro-B Natriuret Pep Total Protein Albumin Triglycerides 100 Cholesterol 119 LDL Cholesterol, Calc 51 HDL Cholesterol 48 Lipase Discharge Plan Discharge Patient Disposition: Home, Self-Care Referrals: Giovanni Henriquez, AMANDA- [Nurse Practitioner, Internal Medicine] - 1 Week Duane Hinkle MD [Physician, Cardiology] - 1 Week Justice Bañuelos [Primary Care Provider, Medical] - 1 Week Johnathan Giang MD [Physician, Gastroenterology] - 1 Week Discharge Medications: Continued (DME) FreeStyle Lite Strips Strip See Rx Instructions .ROUTE .MEDSUPPLY Qty: 300 3RF Rx Instructions: As directed three times a day (DME) lancets [FreeStyle Lancets] 28 gauge misc See Rx Instructions .ROUTE .MEDSUPPLY Qty: 300 3RF Rx Instructions: As directed three time a day hydrochlorothiazide 25 mg tablet 25 mg PO DAILY Qty: 90 1RF metformin 1,000 mg tablet 1,000 mg PO BID Qty: 180 1RF lisinopril 10 mg tablet 10 mg PO BEDTIME tadalafil 5 mg tablet 5 mg PO BEDTIME Trulicity 3 mg/0.5 mL pen injector 3 mg subcut COLLINS atorvastatin 20 mg tablet 20 mg PO BEDTIME ferrous sulfate 325 mg (65 mg iron) tablet 325 mg PO BEDTIME fluticasone propionate 50 mcg/actuation spray,suspension 1 spray intranasal BID PRN (Reason: Allergy Symptoms) Rx Instructions: administer into each nostril omeprazole 20 mg capsule,delayed release(DR/EC) 20 mg PO DAILY@0630 multivitamin Tablet 1 tab PO BEDTIME cetirizine [All Day Allergy (cetirizine)] 10 mg tablet 10 mg PO BEDTIME pentoxifylline 400 mg tablet extended release 400 mg PO BID 90 Days Qty: 180 3RF Discharge Orders: Discharge Order (Routine); Ordered 06/17/25 Ordered By: Thuy Coleman Diet: Low salt diet Activity on Discharge: As tolerated Stand Alone Forms: Patient Portal Discharge page Print Language: Martiniquais Care Plan Goals: Please follow up with the Cardiology for your newly diagnosed first-degree heart block Please follow-up with your GI physician for follow up of Méndez's esophagus No changes in meds have been made at the time of this visit You were evaluated by Cardiology and they said that you can follow up outpatient Health Concerns: See above Plan of Treatment: See above Assessment: See above
--- NOTE | 2025-06-17 12:18 | MHC.CM.PN ---
Patient has been medically cleared for dc to home today, self care.
--- NOTE | 2025-06-17 12:44 | PM.CNCAR ---
History of Present Illness History of Present Illness Date of Service: 06/17/25 Requesting physician: Thuy Coleman Chief complaint: chest pain Narrative: [age] year gentleman with background history of Méndez's esophagus, first-degree AV block, peripheral vascular disease, hypertension and diabetes presenting with indigestion like chest pain ongoing for 2 weeks. He is saying that he had GERD and Méndez's esophagus and we will cut indigestion like feeling but over the last 2 weeks he has worsening symptoms and persistent discomfort in the chest. These symptoms do not get worse with ambulation or activities and get better with burping and by taking antacids and drinking milk. He has not had complete resolution of symptoms for 2 weeks. With persistent symptoms his biomarkers are completely normal. EKGs does not have any dynamic changes. He is saying that activity does not change the symptoms in particular do not make it worse. [facility] Past Medical History Medical History (Updated 06/16/25 @ 22:07 by AMANDA Gillespie-LOURDES) PAD (peripheral artery disease) Erectile dysfunction Peyronie's disease Hematoma of right third toe Diabetes GERD (gastroesophageal reflux disease) Barretts esophagus Patellofemoral arthritis of left knee Type 2 diabetes mellitus with diabetic polyneuropathy Subjective memory complaints Enlarged prostate Renal insufficiency Iron deficiency Hyperlipidemia HTN (hypertension) Hyperlipidemia LDL goal <100 Family History Family History Father Diabetes Mother Lung cancer Son No problems noted. Son No problems noted. Son No problems noted. Son No problems noted. Son No problems noted. Son No problems noted. Daughter No problems noted. Daughter No problems noted. Paternal Grandmother Diabetes Surgical History Surgical History History of right inguinal hernia repair History of left knee surgery History of shoulder surgery History of tonsillectomy History of nasal surgery Hx of esophagogastroduodenoscopy Hx of colonoscopy History of foot surgery Social History Social History Household Members: Spouse Housing: House Do you presently have visiting nurse or other home services: No Alcohol intake: current Alcohol intake frequency: holidays/special occasions only Alcohol type: beer, wine, hard liquor and other Patient Tobacco Use Status: Never used Tobacco e-Cigarette/Vaping Use: Never Used Second Hand Smoke Exposure: No service: Yes Current occupational status: retired Cognitive needs: No Hearing needs: No Vision needs: Yes Travel History Ebola Risk: Travel/Contact With Anyone From Affected Area/s: No Has Patient Experienced Ebola Symptoms: No Meds Allergies Allergy/AdvReac Type Severity Reaction Status Date / Time No Known Allergies (No Known Allergy Verified 06/16/25 17:01 Allergies*) Home Medications ?Medication ?Instructions ?Recorded ?Confirmed ?Last Taken ?Type multivitamin 1 tab PO BEDTIME 06/06/20 06/16/25 03/22/25 History omeprazole 20 mg capsule,delayed 20 mg PO DAILY@0630 06/06/20 06/16/25 06/16/25 History release cetirizine 10 mg tablet (All Day 10 mg PO BEDTIME Allergy Symptoms 02/12/23 06/16/25 Unknown History Allergy (cetirizine)) atorvastatin 20 mg tablet 20 mg PO BEDTIME 03/23/25 06/16/25 03/23/25 History ferrous sulfate 325 mg (65 mg 325 mg PO BEDTIME 03/23/25 06/16/25 03/22/25 History iron) tablet fluticasone propionate 50 1 spray intranasal BID PRN Allergy 03/23/25 06/16/25 Unknown History mcg/actuation nasal Symptoms spray,suspension dulaglutide 3 mg/0.5 mL 3 mg subcut COLLINS 06/16/25 06/16/25 06/11/25 History subcutaneous pen injector (Trulicity) lisinopril 10 mg tablet 10 mg PO BEDTIME 06/16/25 06/16/25 Unknown History tadalafil 5 mg tablet 5 mg PO BEDTIME 06/16/25 06/16/25 Unknown History Physical Exam Vital Signs: Vital Signs: Last Vital Signs Temp 97.0 F 06/17/25 11:10 Pulse 66 06/17/25 11:10 Resp 18 06/17/25 11:10 BP 127/73 06/17/25 11:10 Pulse Ox 98 06/17/25 11:10 O2 Del Method Room Air 06/17/25 11:10 BMI result Body Mass Index 26.9 GENERAL APPEARANCE: in no acute distress, pleasant. NECK: no carotid bruit, no jugular venous distention. SKIN: no suspicious lesions, warm and dry. HEART: no murmurs, regular rate and rhythm. LUNGS: clear to auscultation bilaterally. ABDOMEN: soft, nontender. EXTREMITIES: no edema. PERIPHERAL PULSES: equal. NEUROLOGIC: No gross deficits, AAO X 3 Objective Labs and Meds 06/17/25 07:36 06/17/25 07:36 Lab results: Laboratory Results - last 24 hr 06/16/25 06/16/25 06/17/25 17:33 19:41 07:04 WBC 5.6 RBC 4.91 Hgb 13.7 L Hct 40.9 L MCV 83.3 MCH 27.9 MCHC 33.5 RDW 15.4 Plt Count 302 MPV 8.7 L Immature Gran % (Auto) 0.2 Neut % (Auto) 61.3 Lymph % (Auto) 24.5 [place] % (Auto) 10.8 Eos % (Auto) 2.1 Baso % (Auto) 1.1 Lymph # (Auto) 1.4 [place] # (Auto) 0.6 Eos # (Auto) 0.1 Baso # (Auto) 0.1 Abs Immat Gran (auto) 0.01 Absolute Neuts (auto) 3.5 Absolute Nucleated RBC 0.000 Nucleated RBC % (auto) 0.0 Sodium 141 Potassium 3.7 Chloride 107 Carbon Dioxide 23 Anion Gap 15 BUN 36 H Creatinine 1.45 H Estim Creat Clear Calc 51.6 Estimated GFR 48 POC Glucose 113 Random Glucose 112 Calcium 9.8 Magnesium 1.5 L Total Bilirubin 0.6 AST 48 H ALT 37 Alkaline Phosphatase 68 Troponin I High Sens 6.1 7.1 NT-Pro-B Natriuret Pep 88.0 Total Protein 7.0 Albumin 4.9 Triglycerides Cholesterol LDL Cholesterol, Calc HDL Cholesterol Lipase 06/17/25 06/17/25 07:36 11:07 WBC 4.8 RBC 4.85 Hgb 13.2 L Hct 40.1 L MCV 82.7 MCH 27.2 MCHC 32.9 RDW 15.4 Plt Count 302 MPV 8.8 L Immature Gran % (Auto) Neut % (Auto) Lymph % (Auto) [place] % (Auto) Eos % (Auto) Baso % (Auto) Lymph # (Auto) [place] # (Auto) Eos # (Auto) Baso # (Auto) Abs Immat Gran (auto) Absolute Neuts (auto) Absolute Nucleated RBC 0.000 Nucleated RBC % (auto) 0.0 Sodium 140 Potassium 4.0 Chloride 107 Carbon Dioxide 24 Anion Gap 13 BUN 32 H Creatinine 1.40 Estim Creat Clear Calc 48.8 Estimated GFR 50 POC Glucose 142 H Random Glucose 112 Calcium 9.3 Magnesium 1.7 Total Bilirubin AST ALT Alkaline Phosphatase Troponin I High Sens NT-Pro-B Natriuret Pep Total Protein Albumin Triglycerides 100 Cholesterol 119 LDL Cholesterol, Calc 51 HDL Cholesterol 48 Lipase Assessment and Plan (1) Chest pain: Qualifiers: Chest pain type: unspecified Qualified Code(s): R07.9 - Chest pain, unspecified Status: Acute Plan Pleasant 69-year-old gentleman presenting for chest pain assessment. He has been experiencing indigestion like feeling in his chest for approximately 2 weeks. This is a persistent discomfort with negative troponins and known history of GERD and Méndez's esophagus. Overall clinical story is not concerning for acute coronary syndrome or crescendo angina. I have advised him that there are 2 options to go forward. First that we keep him till Thursday and do an exercise stress test or discharge him home and do stress test early next week. He is more in favor of going home. I think his clinical testing so far is not concerning and he can return home and get further workup as outpatient. He is in favor of that too. We will arrange a stress MIBI for him next week. Thank you for allowing me to participate in the care of your patient. Please feel free to contact me if you have any questions. Procedures Date of Service Date of Service: 06/17/25
== END 2025-06-17 12:35 | disposition home or self-care (01) ==
LOC: HO.ED 17:55 → HO.EDOVER 20:34 → HO.IMC 06-17 03:40
PROVIDERS: Internal Medicine; Physician Assistant Medical; Admitting Provider Nurse Practitioner Family; Emergency Provider Student in an Organized Health Care Education/Training Program; Visit Provider Student in an Organized Health Care Education/Training Program
DX: R07.9 Chest pain, unspecified (principal); I44.0 Atrioventricular block, first degree; K22.719 Barrett's esophagus with dysplasia, unspecified; R94.31 Abnormal electrocardiogram [ECG] [EKG]; E11.9 Type 2 diabetes mellitus without complications; I10 Essential (primary) hypertension; E78.5 Hyperlipidemia, unspecified; K21.9 Gastro-esophageal reflux disease without esophagitis; D50.9 Iron deficiency anemia, unspecified; Z79.85 Long-term (current) use of injectable non-insulin antidiabetic drugs; Z79.899 Other long term (current) drug therapy
CPT/HCPCS: 36415; 71046; 80048; 80053; 80061; 82947; 83690; 83735; 83880; 84484; 85025; 85027; 93005; 96372; 96374; 99222; 99285; J1650; J2470

== ENCOUNTER → 2025-06-16 17:00 | Outpatient (BNV) | payer MEDICARE, OTHER, SELFPAY | PROVIDERS: Emergency Provider Student in an Organized Health Care Education/Training Program; Visit Provider Radiology Diagnostic Radiology | DX: R07.9 Chest pain, unspecified (principal) | CPT/HCPCS: 71046 ==

== ENCOUNTER → 2025-06-16 20:30 | Outpatient (BNV) | payer MEDICARE, OTHER, SELFPAY | PROVIDERS: Admitting Provider Nurse Practitioner Family; Emergency Provider Student in an Organized Health Care Education/Training Program; Visit Provider Internal Medicine Cardiovascular Disease | DX: R07.9 Chest pain, unspecified (principal) | CPT/HCPCS: 99222 ==

== ENCOUNTER → 2025-06-16 20:30 | Outpatient (BNV) | payer MEDICARE, OTHER, SELFPAY | PROVIDERS: Admitting Provider Nurse Practitioner Family; Emergency Provider Student in an Organized Health Care Education/Training Program; Visit Provider Nurse Practitioner Family | DX: R07.9 Chest pain, unspecified (principal); I44.0 Atrioventricular block, first degree; K22.719 Barrett's esophagus with dysplasia, unspecified | CPT/HCPCS: 99223; 99239 ==

== ENCOUNTER → 2025-06-23 08:54 | Outpatient (REF) | payer MEDICARE, OTHER, SELFPAY ==
--- NOTE | ~2025-06-23 | NM_ITS ---
EXERCISE MYOCARDIAL PERFUSION STUDY INDICATION: Chest pain to evaluate for myocardial ischemia TECHNIQUE: The patient was brought in for an exercise perfusion study on 06/23/2025. Patient performed exercise as per [place] protocol and was injected 30 mCi of sestamibi once target heart rate was achieved. Images were obtained using the SPECT gamma camera interlaced with the gating device. Images were obtained in supine position. Resting perfusion study was performed on 06/26/2025. Patient was administered 30 mCi of sestamibi intravenously at rest. Images were then obtained in supine position. Images were processed with the software and compared side to side in short axis, horizontal long axis and vertical long axis views. Images obtained without without CT attenuation. Total DLP 70 mGy-cm. FINDINGS: Raw images were reviewed The stress perfusion study showed nonattenuated images show mildly to moderately reduced uptake in the basal inferior wall and mildly reduced uptake in the mid inferior wall of the LV myocardium. Attenuated corrected images show mildly reduced uptake in the apex of the LV myocardium. The gated study shows normal LV systolic function with calculated LVEF of 56%. LV cavity is normal in size. The gated study shows normal systolic wall thickening and contraction of segments. Resting study shows no change in perfusion pattern compared to stress perfusion study. Gating at rest reveals normal systolic wall motion with ejection fraction at 73%. The findings are consistent with likely normal myocardial perfusion. NM/NM cardiolite stress test IMPRESSION: 1. Myocardial perfusion imaging study shows likely normal myocardial perfusion. 2. Gated LVEF is 56 sent. 3. Transient ischemic dilatation not present. EKG revealed negative for ischemia. Electronically signed by: Ward Heart MD 06/27/2025 04:57 PM [facility]
--- NOTE | 2025-06-23 08:57 | CA_ITS ---
Acquisition Time: 2025-06-23 09:24:58 Total Exercise Time: 00:05:16 Test Indications: Abnormal ECG CP Medications: SEE DISCHARGE SUMMARY Protocol: DONAL Max HR: 148 BPM 97% of Pred: 152 BPM Max BP: 132/60 mmHG Max Work Load: 7.0 METS Exercise stress test with exercise 5 mins 16 secs of Donal Protocol, achieving 97% MPHR, with reports of SOB, no chest pain, without any arrythmias, with normotensive response to exercise. Without any EKG changes meeting criteria for ischemia. In recovery, breathing returned to baseline. Nuclear images pending. Test reviewed with Dr. Hinkle. PS- pt reported epigastric pain <1 on a scale at baseline that resolved with exercise. Referred By: Hermilo Hilario Electronically Signed By: Robert Keita
== END ==
LOC: HO.CARD 08:54
PROVIDERS: PCP Nurse Practitioner Family; Visit Provider Internal Medicine Cardiovascular Disease
DX: R07.9 Chest pain, unspecified (principal)
CPT/HCPCS: 78452; 93017; A9500

== ENCOUNTER → 2025-06-23 08:57 | Outpatient (BNV) | payer MEDICARE, OTHER, SELFPAY | PROVIDERS: PCP Nurse Practitioner Family | DX: R07.9 Chest pain, unspecified (principal) | CPT/HCPCS: 78452; 93016; 93018 ==

== ENCOUNTER 2025-07-08 10:23 | Outpatient (REF) | payer MEDICARE, OTHER, SELFPAY ==
--- OUTSIDE RECORDS SUMMARY | 2025-07-08 10:25 | XMS_ITS | Clinical Summary ---
Author Organization [facility] Address [address] [place] [address] Phone Care Team Providers Care Manufacturing Development Engineer Name Role Phone Giovanni Henriquez NP Primary Care Provider [phone] Allergies No known active allergies Medications atorvastatin [...] mouth 1 (one) time each day Active [place]-3 Fatty Acids (Fish Oil) 1000 MG capsule [...] age to complete this topic Insurance Medicare [facility] Medicare [facility] Care Teams Manufacturing Development Engineer Relationship Specialty Start Date End Date Giovanni Henriquez NP [facility] [place] [address] PCP - General Nurse Practitioner 06/21/21
--- OUTSIDE RECORDS SUMMARY | 2025-07-08 10:26 | XMS_ITS | Patient Health Record ---
Author Organization [facility] René Michaelsley Address [address] [place] [address] Care Team Providers Care Director Of Resource Development Name Role Phone Giovanni Choe Primary Care Provider Unav ailable Maurizio Rivas Unavailable [phone] Allergies No Known Allergies Reason For Referral [...] meal s Orally Twice a day Active Pqviho-[id number]-SDZ Complex - as directed Orally 01/25/2024 Active [...] W/U Status Risk Notes Problem Plantar wart (34656020) Plantar wart (B07.0) Active confirmed Problem Type II diabetes mellitus without complication (012312222) Type 2 diabetes mellitus without complication (E11.9) Active confirmed Plan Of Treatment Pending Test Test Name Order Date [id number] Destruction, -02/05/2024 Insurance Providers Payer Name Payer Address Payer Phone Subscriber Number Group Number Insured Name Patient Relationship to Insured Coverage Start Date Coverage End Date Medicare National [employer] [address] [place] [address] [id number] Michael Martinez Self - patient is the insured for [employer] [address] [place] [address] [id number] Michael Martinez Self - patient is the [...]
--- OUTSIDE RECORDS SUMMARY | 2025-07-08 10:26 | XMS_ITS | Patient Health Record ---
Author Organization [facility] Address [address] [place] [address] Care Team Providers Care Die Sizer Name Role Phone RICK RENE Primary Care Provider Johnathan John [phone] Allergies No Known Allergies Reason For Referral [...] Miscellaneous: Marital status: Occupation: Retired [employer] Section Notes: Nonsmoker; no sig alcohol Nonsmoker; no sig alcohol Nonsmoker; no sig alcohol Nonsmoker; no sig alcohol Nonsmoker; no sig alcohol Problems Problem Type SNOMED Code ICD Code Onset Dates Problem Status W/U Status Risk Notes Problem Diverticulitis of colon (110275551) Diverticulitis of large intestine without perforation or abscess without bleeding (K57.32) Active confirmed Problem Screening for malignant neoplasm of colon (562368854) Encounter for screening for malignant neoplasm of colon (Z12.11) Active confirmed Problem Iron deficiency anemia (48926224) Iron deficiency anemia, unspecified iron deficiency anemia type (D50.9) Active confirmed Problem Reflux esophagitis (834215350) Reflux esophagitis (K21.0) Active confirmed Problem Méndez esophagus (007250013) 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 Problem Colorectal cancer (2223497559) Colorectal cancer (C19) Active confirmed Problem Méndez's esophagus (770135456) 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 Problem Gastroesophageal reflux disease with esophagitis (disorder) (637236980) Gastroesophageal reflux disease with esophagitis without hemorrhage [...] N/A Encounters Encounter Location Date Provider Diagnosis [facility] [address] [place] [address] 05/24/2025 Johnathan Giang Encounter for screen ing for malignant neoplasm of colon Z12.11 ; Méndez''s esophagus without dysplasia K22.70 and Gastroesophageal reflux disease with esophagitis without hemorrhage K21.00 [facility] [address] [place] [address] 06/20/2025 Johnathan Giang Assessments Encounter Date Diagnosis (ICD Code) Assessment [...] Appt Details Provider Name:Johnathan Giang , 07/17/2025 12:50:00 PM, [address] [place] [address] , [place], [place], [id number], Insurance Providers Payer Name Payer Address Payer Phone Subscriber Number Group Number Insured Name Patient Relationship to Insured Coverage Start Date Coverage End Date MEDICARE OF [place] [address] [place] [address] [id number] MICHAEL KIDD Self - patient is the insured [employer] [address] [place] [address] [phone] [id number] MICHAEL KIDD Self - patient is the insured Medical (General) History Medical History History ICD Code Screening colonoscopy 02-14- 009- negative except for mild sigmoid diverticulosis and internal hemorrhoids Diverticulitis on CT scan 2015- treated with inpatient and outpatient antibiotics NIDDM Hyperlipidemia Denies NC,CVA,Lung disease,renal disease HTN Iron def anemia- EGD [...]
[2025-07-08 10:44] LABS: MANUAL DIFF FLAG NO
[2025-07-08 10:58] LABS: Hematocrit 43.2 % (42.0-52.0); Hemoglobin 14.4 g/dl (14.0-18.0); Imm Gran Abs Auto 0.02 X10*3/uL (0.00-0.03); Imm Gran Pct Auto 0.3 % (0.0-0.4); Lymphocytes Absolute Auto 1.4 X10*3/uL (1.2-4.9); Mean Corpuscular HGB Conc 33.3 g/dl (31.0-36.0); Mean Corpuscular Hemoglobin 28.0 pg (27.0-33.0); Mean Corpuscular Volume 83.9 fL (80.0-98.0); NRBC Abs Auto 0.000 X10*3/uL (0.0-0.012); NRBC Pct Auto 0.0 /100WBC (0.0-0.2); Platelet Count 264 X10*3/uL (160-400); Red Blood Count 5.15 X10*6/uL (4.60-5.80); White Blood Count 5.8 X10*3/uL (4.8-10.8)
[2025-07-08 11:20] LABS: Appearance Urine Clear; Glucose Urine UA Negative (Negative); PH 5.0 (5.0-9.0); Specific Gravity - Urine 1.025 (1.005-1.025)
[2025-07-08 11:38] LABS: Alanine Aminotransferase 26 U/L (0-40); Albumin Level 4.5 g/dL (3.5-5.0); Alkaline Phosphatase 65 U/L (39-117); Anion Gap 12 (12-20); Aspartate Amino Transferase 29 U/L (5-37); Blood Urea Nitrogen 27 mg/dL (9-16); Calcium 9.4 mg/dL (8.4-10.2); Carbon Dioxide 26 mmol/L (22-29); Chloride 110 mmol/L (96-108); Estimated Glomerular Filt Rate 52; Magnesium 1.6 mg/dL (1.6-2.6); Potassium 4.5 mmol/L (3.3-5.1); Prostate Specific Antigen 2.26 ng/mL (<0.05-4.0); Sodium 143 mmol/L (135-145); Total Protein 6.5 g/dL (6.5-8.0)
== END 2025-07-08 10:24 | disposition home or self-care (01) ==
LOC: HO.LAB 10:23
PROVIDERS: Urology; PCP Nurse Practitioner Family; Visit Provider Nurse Practitioner Family
DX: Z12.5 Encounter for screening for malignant neoplasm of prostate (principal); I44.0 Atrioventricular block, first degree; N40.0 Benign prostatic hyperplasia without lower urinary tract symptoms; N52.9 Male erectile dysfunction, unspecified; E78.5 Hyperlipidemia, unspecified
CPT/HCPCS: 36415; 80053; 81003; 83735; 84153; 84443; 85025

== ENCOUNTER 2025-07-10 09:37 | Outpatient (AMB) | payer MEDICARE, OTHER, SELFPAY ==
[2025-07-10 09:53] VITALS: BP 118/60; PULSE 77; O2SAT 98; BMI 29.3
--- NOTE | 2025-07-10 09:53 | AM.OFFVISMDC ---
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 denies any cp, sob, n/v, fevers, chills HPI Comments History of Present Illness Details Chief Complaint The patient presents with a chief complaint of ongoing right hip pain. History of Present Illness The patient is a 69 year old male presenting with ongoing right hip pain. He describes the pain as being muscular in nature and located on the lateral side of the hip. Social History Health Maintenance Review of Systems - Musculoskeletal: Reports ongoing right hip pain, described as muscular and located on the lateral side. - He reports discomfort with abduction of the right lower extremity. - He denies pain with palpation, [id number] raises, or entire right lower extremity raises. Physical Exam General: Cooperative, healthy appearing, comfortable, no acute distress and well developed Orientation: Patient oriented x3 Limitations: No limitations Head: Normal to inspection Ears: Hearing grossly normal bilaterally Nose: Normal external nose present Face and sinus: Normal facial exam Eyes: Appearance normal, both eyes and all related structures Neck: Normal visual inspection and Yes full ROM Respiratory: Normal respiratory effort and able to speak in complete sentences. Clear to auscultation bilaterally Cardiovascular: Regular rate and rhythm. Normal S1 and S2 GI: Normal to inspection. Soft to palpation and nontender Skin: No rashes or lesions noted Neuro: Patient oriented x3 Extremities: Normal to inspection, reports ongoing right hip pain, more muscular on the lateral side. No pain with palpation. Able to perform right lower extremity knee to chest raises and entire right lower extremity raises without pain. Discomfort with abduction of the right lower extremity in the hip, not with adduction. Negative Cameron's test. Results Plan 1. Right Hip Pain An X-ray of the patient's right hip will be obtained for further evaluation. Discussion Notes I informed the patient that I will order an X-ray of his right hip to further evaluate his pain. Patient Instructions - An X-ray of your right hip will be ordered to help figure out the cause of your pain. [facility] Medical History PAD (peripheral artery disease) Erectile dysfunction Peyronie's disease Hematoma of right third toe Diabetes GERD (gastroesophageal reflux disease) Barretts esophagus Patellofemoral arthritis of left knee Type 2 diabetes mellitus with diabetic polyneuropathy Subjective memory complaints Enlarged prostate Renal insufficiency Iron deficiency Hyperlipidemia HTN (hypertension) Hyperlipidemia LDL goal <100 Surgical History History of right inguinal hernia repair History of left knee surgery History of shoulder surgery History of tonsillectomy History of nasal surgery Hx of esophagogastroduodenoscopy Hx of colonoscopy History of foot surgery Family History Father Diabetes Mother Lung cancer Son No problems noted. Son No problems noted. Son No problems noted. Son No problems noted. Son No problems noted. Son No problems noted. Daughter No problems noted. Daughter No problems noted. Paternal Grandmother Diabetes Social History Household Members: Spouse Housing: House Do you presently have visiting nurse or other home services: No Alcohol intake: current Alcohol intake frequency: holidays/special occasions only Alcohol type: beer, wine, hard liquor and other Patient Tobacco Use Status: Never used Tobacco e-Cigarette/Vaping Use: Never Used Second Hand Smoke Exposure: No service: Yes Current occupational status: retired Cognitive needs: No Hearing needs: No Vision needs: Yes Questionnaire Medicare Wellness Checkup [age] What gender do you identify with?: male During the past 4 weeks, how much have you been bothered by emotional problems such as feeling anxious, depressed, irritable, sad or downhearted, and blue?: slightly During the past 4 weeks, has your physical & emotional health limited your social activities with family, friends, neighbors, or groups?: not at all During the past 4 weeks, how much bodily pain have you generally had?: very mild pain During the past 4 weeks, was someone available to help you if you needed & wanted help?: yes, as much as I wanted During the past 4 weeks, what was the hardest physical activity you could do for at least 2 minutes?: very heavy Can you get to places out of walking distance without help? (For eg., can you travel alone on buses, taxis or drive your car?): Yes Can you go shopping for groceries or clothes without someone's help?: Yes Can you prepare your own meals?: Yes Can you do your housework without help?: Yes Because of any health problems, do you need the help of another person with your personal care needs such as eating, bathing, dressing or getting around the house?: No Can you handle your own money without help?: Yes During the past 4 weeks, how would you rate your health in general?: very good During the past 4 weeks how have things been going for you?: very well; could hardly better Are you having difficulties driving your car?: no Do you always fasten your seat belt when you are in a car?: yes, usually During past 4 weeks, have you been bothered by the following: never: Falling or dizzy when standing up, Trouble eating well?, Teeth or denture problems?, Problems using the telephone? and Tiredness or fatigue? and seldom: Sexual problems? Have you fallen 2 or more times in the past year?: No Are you afraid of falling?: No Are you a smoker?: no During the past 4 weeks, how many drinks of wine, beer, or other alcoholic beverages did you have?: 2-5 drinks per week Do you exercise for about 20 minutes 3 or more times a week?: yes, all the time Have you been given information to help with the following?: yes: Hazards in your house that might hurt you? and yes: Keeping track of your medications? How often do you have trouble taking medicines the way you have been told to take them?: I always take medicine as prescribed How confident are you that you can control & manage most of your health problems?: very confident What is your race?: White Mini Mental State Exam (MMSE) Orientation What is the (year) (season) (date) (day) (month)?: year, season, date, day and month Where are we (state) (county) (town or city) (hospital) (floor)?: state, county, town or city, hospital/clinic and floor Registration Name of 3 unrelated objects clearly and slowly, then ask patient to repeat all 3 of them. (1st repeat determines score. Make sure they can repeat all three): object 1, object 2 and object 3 Attention & Calculation (CHOOSE ONE) Spell WORLD backwards (DLROW): 5 letters Recall Ask patient to repeat the 3 items from question #3.: object 1, object 2 and object 3 Language Show patient a wristwatch & ask what it is. Repeat for pencil.: watch and pencil Ask the patient to repeat the phrase 'No ifs, ands, or buts' after you.: correct Ask the patient to 'take a piece of paper with their right hand' 'fold paper in half' 'place paper on floor': take paper in right hand, fold paper in half and place paper on floor Print the sentence 'CLOSE YOUR EYES' on a piece. If patient actually closes eyes then score.: followed written direction Give patient a blank piece of paper & ask to write a sentence. Score if it contains a noun & verb.: sentence contains subject and verb Ask patient to copy figure of intersecting pentagons exactly. Score if all 10 angles & 2 intersects are included.: all 10 angles present & 2 are intersected Score Score: 30 Activity of Daily Living Bathing - sponge bath, tub bath or shower: receives no assistance (gets in/out by self, if usual bathing means Dressing - getting clothes from closets & drawers, including inner/outer garments & fasteners.: gets clothes & gets completely dressed without help Toileting - going to the 'toilet room' for urine/bowel elimination & cleaning self/arranging clothes: goes to toilet room, cleans self, arranges clothes without help Transfer: moves in & out of bed and chair without help (may use support object) Continence: controls urination/bowel movements completely by self Feeding: feeds self without help Total Score: 0 Information obtained from: patient Using telephone: independent Traveling: independent Shopping: independent Preparing meals: independent Housework: independent Taking medicine: independent Managing money: independent PHQ-9 Over the last 2 weeks, how often have you been bothered by any of the following problems? 1. Little interest or pleasure in doing things: not at all 2. Feeling down, depressed, or hopeless: not at all 3. Trouble falling or staying asleep, or sleeping too much: not at all 4. Feeling tired or having little energy: not at all 5. Poor appetite or overeating: not at all 6. Feeling bad about yourself - or that you are a failure or have let yourself or your family down: not at all 7. Trouble concentrating on things, such as reading the newspaper or watching television: not at all 8. Moving or speaking so slowly that other people could have noticed. Or the opposite - being so fidgety or restless that you have been moving around a lot more than usual: not at all 9. Thoughts that you would be better off or of hurting yourself in some way: not at all Total score: 0 Depression Screening Interpretation: Negative Depression Screening Done: Yes 48887 - PHQ-9 Billing: Yes Source: Developed by Drs. Johnathan Haas, Rosalia Fonseca, Abelardo Smith and colleagues, with an educational ignacio from [employer]. Physical Exam Vital Signs: Last Vital Signs Pulse 77 07/10/25 09:53 BP 118/60 07/10/25 09:53 Pulse Ox 98 07/10/25 09:53 Oxygen Delivery Method Room Air 07/10/25 09:53 BMI result Body Mass Index 29.3 Neuro Other: able to stand from seated position, able to tandem walk, neg rhomberg, passed whisper test Assessment & Plan Assessment & Plan (1) Chronic hip pain: Code(s): M25.559 - Pain in unspecified hip; G89.29 - Other chronic pain (2) Type 2 diabetes mellitus with diabetic polyneuropathy: Code(s): E11.42 - Type 2 diabetes mellitus with diabetic polyneuropathy (3) Encounter for annual wellness visit (AWV) in Medicare patient: Code(s): Z00.00 - Encounter for general adult medical examination without abnormal findings Plan . Orders: Orders XR hip RT min 2V Today G89.29 - Other chronic pain, M25.559 - Pain in unspecified hip Microalbumin, Random (w Creat) Today E11.42 - Type 2 diabetes mellitus with diabetic polyneuropathy Quality Reporting (2019) Depression/Bipolar (159/160/161/177) PHQ-9: Total score: 0 Coding Level of Care Code Medicare Subsequent (G0439) Est Pt Level 3 (27514) Diagnoses Chronic hip pain M25.559; G89.29 Type 2 diabetes mellitus with diabetic polyneuropathy E11.42 Encounter for annual wellness visit (AWV) in Medicare patient Z00.00 CPT Codes Advance Care Planning - Time spent: 1-15 minutes, on File ([id number]) Additional Codes PHQ-9 - 69539 - PHQ-9 Billing: Yes ([id number]) Advance Care Planning Forms completed: Health Care Proxy (on file), MOLST (on file) and Living will (pt reports this is already done) Time spent: 1-15 minutes, on File Actual minutes spent: 1
--- OUTSIDE RECORDS SUMMARY | 2025-07-10 11:04 | XMS_ITS | Patient Health Record ---
Author Organization [facility] Address [address] [place] [address] Care Team Providers Care Glaze Grinder Name Role Phone RICK RENE Primary Care Provider Johnathan John [phone] Allergies No Known Allergies Reason For Referral [...] Miscellaneous: Marital status: Occupation: Retired [employer] Section Notes: Nonsmoker; no sig alcohol Nonsmoker; no sig alcohol Nonsmoker; no sig alcohol Nonsmoker; no sig alcohol Nonsmoker; no sig alcohol Problems Problem Type SNOMED Code ICD Code Onset Dates Problem Status W/U Status Risk Notes Problem Diverticulitis of colon (342992302) Diverticulitis of large intestine without perforation or abscess without bleeding (K57.32) Active confirmed Problem Screening for malignant neoplasm of colon (160911890) Encounter for screening for malignant neoplasm of colon (Z12.11) Active confirmed Problem Iron deficiency anemia (74928594) Iron deficiency anemia, unspecified iron deficiency anemia type (D50.9) Active confirmed Problem Reflux esophagitis (394925990) Reflux esophagitis (K21.0) Active confirmed Problem Méndez esophagus (854052196) 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 Problem Colorectal cancer (7082712350) Colorectal cancer (C19) Active confirmed Problem Méndez's esophagus (097721733) 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 Problem Gastroesophageal reflux disease with esophagitis (disorder) (949388645) Gastroesophageal reflux disease with esophagitis without hemorrhage [...] [facility] [address] [place] [phone] 05/24/2025 Johnathan Giang Encounter for screen ing for malignant neoplasm of colon Z12.11 ; Méndez''s esophagus without dysplasia K22.70 and Gastroesophageal reflux disease with esophagitis without hemorrhage K21.00 [facility] [address] [place] [address] 06/20/2025 Johnathan Giang Assessments Encounter Date Diagnosis (ICD Code) Assessment Notes Treatment Notes Treatment Clinical Notes Section Notes 05/24/2025 Encounter for screening for malignant neoplasm of colon (ICD-10 - Z12.11) Overall, Micahel appears well and is not having any [...] Provider Name:Johnathan Giang , 07/17/2025 12:50:00 PM, [address] [place] [address] , [place], [place], [id number], Insurance Providers Payer Name Payer Address Payer Phone Subscriber Number Group Number Insured Name Patient Relationship to Insured Coverage Start Date Coverage End Date MEDICARE OF [place] [address] [place] [address] [id number] MICHAEL KIDD Self - patient is the insured [employer] [address] [place] [address] [id number] MICHAEL KIDD Self - patient is the insured Medical (General) History Medical History History ICD Code Screening colonoscopy 02-14- 009- negative except for mild sigmoid diverticulosis and internal hemorrhoids Diverticulitis on CT scan 2015- treated with inpatient and outpatient antibiotics NIDDM Hyperlipidemia Denies VT,CVA,Lung disease,renal disease HTN Iron def anemia- EGD [...]
--- OUTSIDE RECORDS SUMMARY | 2025-07-10 11:04 | XMS_ITS | Clinical Summary ---
Author Organization [facility] Address [address] [facility] [address] [place] [address] Phone Care Team Providers Care Crayon Grader Name Role Phone Giovanni Henriquez NP Primary Care Provider [phone] Allergies No known active allergies Medications atorvastatin [...] mouth 1 (one) time each day Active [place]-3 Fatty Acids (Fish Oil) 1000 MG capsule [...] [facility] Care Teams Crayon Grader Relationship Specialty Start Date End Date Giovanni Henriquez [place] [facility] [place] [address] PCP - General Nurse Practitioner 06/21/21
--- OUTSIDE RECORDS SUMMARY | 2025-07-10 11:05 | XMS_ITS | Patient Health Record ---
Author Organization [facility] Address [address] [place] [address] Care Team Providers Care Animal Ride Manager Name Role Phone Giovanni Choe Primary Care Provider Unav ailable Maurizio Rivas Unavailable [phone] Allergies No Known Allergies Reason For Referral [...] meal s Orally Twice a day Active Sjddho-Qhbhfzvwp-LOL Complex - as directed Orally 01/25/2024 Active [...] W/U Status Risk Notes Problem Plantar wart (04951284) Plantar wart (B07.0) Active confirmed Problem Type II diabetes mellitus without complication (819760200) Type 2 diabetes mellitus without complication (E11.9) Active confirmed Plan Of Treatment Pending Test Test Name Order Date 19305-Xcsm Destruction, -02/05/2024 Insurance Providers Payer Name Payer Address Payer Phone Subscriber Number Group Number Insured Name Patient Relationship to Insured Coverage Start Date Coverage End Date Medicare [employer] [address] [place] [address] [id number] Michael Martinez Self - patient is the insured for [employer] [address] [place] [address] [id number] Michael Martinez Self - patient is the [...]
== END 2025-07-10 11:13 | disposition home or self-care (01) ==
LOC: HO.HMCC 09:38
PROVIDERS: PCP Nurse Practitioner Family; Visit Provider Nurse Practitioner Family
DX: M25.559 Pain in unspecified hip (principal); G89.29 Other chronic pain; E11.42 Type 2 diabetes mellitus with diabetic polyneuropathy; Z00.00 Encounter for general adult medical examination without abnormal findings

== ENCOUNTER 2025-07-10 09:37 | Outpatient (REF) | payer MEDICARE, OTHER, SELFPAY ==
--- NOTE | ~2025-07-10 | XR_ITS ---
EXAMINATION: XR HIP 2 OR MORE VIEWS RIGHT HISTORY: M25.559 - Pain in unspecified hip COMPARISON: There are no prior studies available for comparison. FINDINGS: Two views of the right hip are submitted. Osseous mineralization is normal. There is no fracture or dislocation. The joint space is maintained. The soft tissues are unremarkable. XR/XR hip RT min 2V IMPRESSION: Unremarkable examination of the right hip. Electronically signed by: Johnathan Alejandro MD 07/10/2025 01:06 PM [facility]OGER CABRAL
== END 2025-07-10 09:38 | disposition home or self-care (01) ==
LOC: HO.HMGCX 09:37
PROVIDERS: PCP Nurse Practitioner Family; Visit Provider Nurse Practitioner Family
DX: Z00.00 Encounter for general adult medical examination without abnormal findings (principal); G89.29 Other chronic pain; M25.551 Pain in right hip; E11.42 Type 2 diabetes mellitus with diabetic polyneuropathy
CPT/HCPCS: 73502

== ENCOUNTER → 2025-07-10 10:37 | Outpatient (BNV) | payer MEDICARE, OTHER, SELFPAY | PROVIDERS: PCP Nurse Practitioner Family; Visit Provider Radiology Diagnostic Radiology | DX: M25.551 Pain in right hip (principal) | CPT/HCPCS: 73502 ==

== ENCOUNTER 2025-07-17 08:23 | Day surgery (SDC) | payer MEDICARE, OTHER, SELFPAY ==
--- OUTSIDE RECORDS SUMMARY | 2025-05-24 10:20 | XMS_ITS ---
Author Organization [facility] Address [address] [place] [address] Care Team Providers Care Pulp Tester Name Role Phone RICK RENE Primary Care Provider Johnathan John Unavailable [phone] Allergies No Known Allergies REASON FOR VISIT Patient presents today for upperendoscopy recall Medications Medication SIG (Take, Route, Frequency, Duration) Notes Start Date End Date Status hydroCHLOROthiazide 25 MG Tablet 1 tablet in the morning Orally Once a day Active Multi Vitamin/Minerals - Tablet 1 Orally QD Active Fish Oil 1000 MG Capsule 1 capsule Orall y Twice a day Active Omeprazole 20 MG Capsule Delayed Release TAKE ONE CAPSULE BY MOUTH EVERY DAY IN THE MORNING; Duration: 90 Active Iron 325 (65 Fe) MG Tablet 1 tablet Oral ly Once a day Active metFORMIN HCl 1000 MG Tablet 1 tablet wi th a meal Orally Twice a day Active Trulicity 1.5 MG/0.5ML Solution Pen-injector as directed Subcutaneous Active Lisinopril 5 MG Tablet 1 tablet Orally O nce a day Active Simvastatin 20 MG Tablet 1 tablet in the evening Orally Once a day Active Social History Tobacco Use: Social History Observation Description Date Details (start date - stop date) Never Smoker NA - NA Social History Drugs/Alcohol: Social Info Question Answer Notes Alcohol Screen Did you have a drink containing alcohol in the past year? Yes How often did you have a drink containing alcohol in the past year? 2 to 4 times a month (2 points) How many drinks did you have on a typical day when you were drinking in the past year? 1 or 2 drinks (0 point) How often did you have 6 or more drinks on one occasion in the past year? 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 Section Notes: Nonsmoker; no sig alcohol Vital Signs Temperature 98.4 degrees Fahrenheit 05/24/20 25 Blood pressure systolic 001 mm Hg 05/24/20 25 Blood pressure diastolic 01 mm Hg 025 Height 73 in 05/24/2025 Weight 197.2 lbs 05/24/2025 BMI 26.01 kg/m2 05/24/2025 Procedures Procedure Date Ordered Date Performed Result Body Sit e UPPER GI ENDOSCOPY 05/24/2025 N/A Encounters Encounter Location Date Provider Diagnosis [facility] [address] [place] [address] 05/24/2025 Johnathan Gaing Encounter for screen ing for malignant neoplasm of colon Z12.11 ; 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 His reflux seems to be very stable on his daily omeprazole and I did advise him to continue that. I did recommend a follow-up upper endoscopy for surveillance biopsies in regard to the Méndez's esophagus given that his last endoscopy with biopsies was over 3 years ago. We did review the rationale for that in regard to the theoretical increased incidence of esophageal cancer in patients with Méndez's esophagus. Full consent has been obtained for the endoscopy, including risks of bleeding and perforation. The procedure will be done with monitored anesthesia care. He was given the below instructions regarding adjustment of his medications for the procedure. We did review that he will be due for a follow-up screening colonoscopy in 2028 given his last exam being negative in 2018. Michael was comfortable with this plan. Thank you again for allowing me to participate in Michael's care. I shall continue to keep you advised of his progress. 05/24/2025 Méndez''s esophagus without dysplasia (ICD-10 - K22.70) Overall, Michael appears well and is not having any new or worrisome GI complaints. His reflux seems to be very stable on his daily omeprazole and I did advise him to continue that. I did recommend a follow-up upper endoscopy for surveillance biopsies in regard to the Méndez's esophagus given that his last endoscopy with biopsies was over 3 years ago. We did review the rationale for that in regard to the theoretical increased incidence of esophageal cancer in patients with Méndez's esophagus. Full consent has been obtained for the endoscopy, including risks of bleeding and perforation. The procedure will be done with monitored anesthesia care. He was given the below instructions regarding adjustment of his medications for the procedure. We did review that he will be due for a follow-up screening colonoscopy in 2028 given his last exam being negative in 2018. Michael was comfortable with this plan. Thank you again for allowing me to participate in Trinis care. I shall continue to keep you advised of his progress. 05/24/2025 Gastroesophageal reflux disease with esophagitis without hemorrhage (ICD-10 - K21.00) Overall, Michael appears well and is not having any new or worrisome GI complaints. His reflux seems to be very stable on his daily omeprazole and I did advise him to continue that. I did recommend a follow-up upper endoscopy for surveillance biopsies in regard to the Méndez's esophagus given that his last endoscopy with biopsies was over 3 years ago. We did review the rationale for that in regard to the theoretical increased incidence of esophageal cancer in patients with Méndez's esophagus. Full consent has been obtained for the endoscopy, including risks of bleeding and perforation. The procedure will be done with monitored anesthesia care. He was given the below instructions regarding adjustment of his medications for the procedure. We did review that he will be due for a follow-up screening colonoscopy in 2028 given his last exam being negative in 2018. Michael was comfortable with this plan. Thank you again for allowing me to participate in [facility] care. I shall continue to keep you advised of his progress. Plan Of Treatment Pending Test Test Name Order Date UPPER GI ENDOSCOPY 05/24/2025 Next Appt Details Provider Name:Johnathan Giang , 07/17/2025 02:40:00 PM, [address] [place] [address] , [place], [place], [phone], History and Physical Notes * HPI (History of Present Illness) Category Sub-Category Detail Notes Category Not es incontinence I saw Michael in consultation today in regard to further evaluation of his gastroesophageal reflux with associated Méndez's esophagus, and discussion of colorectal cancer screening. I last saw Michael in December 2021, at which time he underwent a follow-up upper endoscopy. This revealed his known small area of Méndez's esophagus with all biopsies being negative for dysplasia. There was no esophagitis. He has remained on his daily omeprazole with good relief of heartburn symptoms. He denies any problems with dysphagia, early satiety, nausea, vomiting, nor anorexia. His bowel movements have been regular and without any signs of bleeding. He denies any abdominal pain, jaundice, nor any unintentional weight loss. He denies any known family history of colorectal cancer. His last colonoscopy in 2018 was negative for any polyps. Laboratories in April revealed normal chemistries, BUN 33, creatinine 1.4, normal LFTs, and a normal CBC. Progress Notes * MICHAEL KIDD DDOB: [birth year] (69 yo M)Acc No.[id number]:05/24/2025 Progress Notes Patient: MICHAEL BRUNO Provider: Sue Giang MD :1955 A ge:69 Y S ex:Male Date:05/24/2025 Address:[address] [place], [place] [address] Pcp:RICK RENE Subjective: * Chief Complaints: * P atient presents today for upperendoscopy recall * HPI: i ncontinence: I saw Michael in consultation today in regard to further evaluation of his gastroesophageal reflux with associated Méndez's esophagus, and discussion of colorectal cancer screening. I last saw Michael in December 2021, at which time he underwent a follow-up upper endoscopy. This revealed his known small area of Méndez's esophagus with all biopsies being negative for dysplasia. There was no esophagitis. He has remained on his daily omeprazole with good relief of heartburn symptoms. He denies any problems with dysphagia, early satiety, nausea, vomiting, nor anorexia. His bowel movements have been regular and without any signs of bleeding. He denies any abdominal pain, jaundice, nor any unintentional weight loss. He denies any known family history of colorectal cancer. His last colonoscopy in 2018 was negative for any polyps. Laboratories in April revealed normal chemistries, BUN 33, creatinine 1.4, normal LFTs, and a normal CBC. * Medical History: Screening colonoscopy 02-14-2009- negative except for mild sigmoid diverticulosis and internal hemorrhoids Diverticulitis on CT scan 09/2015- treated with inpatient and outpatient antibiotics NIDDM Hyperlipidemia Denies [place],CVA,Lung disease,renal disease HTN Iron def anemia- EGD in 07/2018-small HH, mild esophagitis and small area of Méndez's-no dysplasia, duodenal biopsies were negative for celiac disease; neg colonoscopy in 07/2018. The anemia was probably related to his mild esophagitis and regular blood donations EGD 12/2021 with a small area of Méndez's but no dysplasia or esophagitis, and a minimal hiatal hernia Medical History Verified * Surgical History: Surgery for a deviated septum Shoulder surgery Wrist surgery Knee surgery Tonsillectomy Inguinal hernia Hammer toe- right foot on the middle toe Left hand trigger finger Surgical History verified. * Hospitalization/Major Diagno stic Procedure: No Hospitalization Documented. Hospitalization Verified. * Family History: F ather: alive, alzheimer's dementia, diagnosed with HTN (hypertension), Diabetes. M other: . 6 son(s) , 2 daughter(s) . . F amily History Verified.. no family hx or liver or colon ca. * Social History: T obacco Use: T obacco Use/Smoking P atient is a n onsmoker. D rugs/Alcohol: A lcohol Screen D id you have a drink containing alcohol in the past year? Y es, H ow often did you have a drink containing alcohol in the past year? 2 to 4 times a month (2 points), H ow many drinks did you have on a typical day when you were drinking in the past year??1 or 2 drinks (0 point), H ow often did you have 6 or more drinks on one occasion in the past year? N ever (0 point), P oints 2 , I nterpretation N egative. M iscellaneous: M arital status: . 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 Social History Verified. N onsmoker; no sig alcohol. * Medications: T akingTrulicity 1.5 MG/0.5ML Solution Pen-injector as directed Subcutaneous metFORMIN HCl 1000 MG Tablet 1 tablet with a meal Orally Twice a day Simvastatin 20 MG Tablet 1 tablet in the evening Orally Once a day Lisinopril 5 MG Tablet 1 tablet Orally Once a day hydroCHLOROthiazide 25 MG Tablet 1 tablet in the morning Orally Once a day Fish Oil 1000 MG Capsule 1 capsule Orally Twice a day Multi Vitamin/Minerals - Tablet 1 Orally QD Iron 325 (65 Fe) MG Tablet 1 tablet Orally Once a day Omeprazole 20 MG Capsule Delayed Release TAKE ONE CAPSULE BY MOUTH EVERY DAY IN THE MORNING Medication List reviewed and reconciled with the patientTaking Trulicity 1.5 MG/0.5ML Solution Pen-injector as directed Subcutaneous Taking metFORMIN HCl 1000 MG Tablet 1 tablet with a meal Orally Twice a day Taking Simvastatin 20 MG Tablet 1 tablet in the evening Orally Once a day Taking Lisinopril 5 MG Tablet 1 tablet Orally Once a day Taking hydroCHLOROthiazide 25 MG Tablet 1 tablet in the morning Orally Once a day Taking Fish Oil 1000 MG Capsule 1 capsule Orally Twice a day Taking Multi Vitamin/Minerals - Tablet 1 Orally QD Taking Iron 325 (65 Fe) MG Tablet 1 tablet Orally Once a day Taking Omeprazole 20 MG Capsule Delayed Release TAKE ONE CAPSULE BY MOUTH EVERY DAY IN THE MORNING Medication List reviewed and reconciled with the patient * Allergies: N .K.D.A.yesAllergies Verified. Objective: * Vitals: W t:197.2lbs, Ht: 73 in, BMI:26.01Index, BP:001/01mm Hg, Temp:98.4F, Wt-k.45 kg. Assessment: * Assessment: 1. E ncounter for screening for malignant neoplasm of colon - Z12.11 (Primary) 2 . B arrett''s esophagus without dysplasia - K22.70 3 . G astroesophageal reflux disease with esophagitis without hemorrhage - K21.00 Overall, Michael appears well and is not having any new or worrisome GI complaints. His reflux seems to be very stable on his daily omeprazole and I did advise him to continue that. I did recommend a follow-up upper endoscopy for surveillance biopsies in regard to the Méndez's esophagus given that his last endoscopy with biopsies was over 3 years ago. We did review the rationale for that in regard to the theoretical increased incidence of esophageal cancer in patients with Méndez's esophagus. Full consent has been obtained for the endoscopy, including risks of bleeding and perforation. The procedure will be done with monitored anesthesia care. He was given the below instructions regarding adjustment of his medications for the procedure. We did review that he will be due for a follow-up screening colonoscopy in 2028 given his last exam being negative in 2018. Michael was comfortable with this plan. Thank you again for allowing me to participate in Michael's care. I shall continue to keep you advised of his progress. Plan: * Treatment: 2.?Gastroesophageal reflux disease with esophagitis without hemorrhage?Procedure: UPPER GI ENDOSCOPY* With MAC sched for 07/17/25 at 2:40 pmStop Trulicity for at least 7 days before the upper endoscopy.Do not use the Metformin on the morning of the upper endoscopy.Stop Fish oil for 1 week before the upper endoscopy * Procedure Codes: 4 3235 UPPR GI ENDOSCOPY, DIAGNOSIS * Preventive Medicine: Counseling: C are goal follow-up plan: A shilpi Normal BMI Follow-up D ietary management education, guidance, and counseling, B [place] management provided Y es. Screenings: F all Risk Screening F all Risk Assessment: N o falls in the past year, S creening: N o falls in the past year, P ben of Care: N ot documented, no reason specified. Billing Information: * Procedure Codes: 92798 UPPR GI ENDOSCOPY, DIAGNOSIS. * The named appointment provid er may or may not be the originator of this progress note, and it is not deemed complete until electronically signed by the appointment provider. Sign off status: Pending * Provider: Sue Giang MD Date: 07/24/2024 Generated for Lucero rodriguez/Luiza/Mic on: 08/08/2024 07:02 PM EST
--- OUTSIDE RECORDS SUMMARY | 2025-06-08 19:02 | XMS_ITS | Patient Health Record ---
Author Organization [facility]aelsley Address [address] [place] [address] Care Team Providers Care Supervisor Customer Complaint Service Name Role Phone Giovanni Choe Primary Care Provider Unav ailable Maurizio Rivas Unavailable [phone] Allergies No Known Allergies Reason For Referral [...] meal s Orally Twice a day Active Qlbqfl-Ylvzqjwgs-YTX Complex - as directed Orally 01/25/2024 Active [...] W/U Status Risk Notes Problem Plantar wart (72830962) Plantar wart (B07.0) Active confirmed Problem Type II diabetes mellitus without complication (605976359) Type 2 diabetes mellitus without complication (E11.9) Active confirmed Plan Of Treatment Pending Test Test Name Order Date 94894-[id number] Destruction, -02/05/2024 Insurance Providers Payer Name Payer Address Payer Phone Subscriber Number Group Number Insured Name Patient Relationship to Insured Coverage Start Date Coverage End Date Medicare National [employer] [address] [place] [address] [id number] Michael Martinez Self - patient is the insured for [employer] [address] [place] [address] [id number] Michael Martinez Self - patient is the [...]
--- OUTSIDE RECORDS SUMMARY | 2025-06-08 19:02 | XMS_ITS | Patient Health Record ---
Author Organization [facility] Address [address] [place] [address] Care Team Providers Care Flatwork Assembler Name Role Phone RICK RENE Primary Care Provider Johnathan John [phone] Allergies No Known Allergies Reason For Referral No Information Medications Medication SIG (Take, Route, Frequency, Duration) Notes Start Date End Date Status hydroCHLOROthiazide 25 MG Tablet 1 tablet in the morning Orally Once a day Active Multi Vitamin/Minerals - Tablet 1 Orally QD Active Fish Oil 1000 MG Capsule 1 capsule Orall y Twice a day Active metFORMIN HCl 1000 MG Tablet 1 tablet wi th a meal Orally Twice a day Active Trulicity 1.5 MG/0.5ML Solution Pen-injector as directed Subcutaneous Active Lisinopril 5 MG Tablet 1 tablet Orally O nce a day Active Simvastatin 20 MG Tablet 1 tablet in the evening Orally Once a day Active Omeprazole 20 MG Capsule Delayed Release TAKE ONE CAPSULE BY MOUTH EVERY DAY IN THE MORNING; Duration: 90 Active Iron 325 (65 Fe) MG Tablet 1 tablet Oral ly Once a day Active Immunizations Vaccine Route Administration Date Status Comme nts Influenza Unknown 04/27/2018 Administered Influenza Unknown 06/11/2021 Administered Influenza Unknown 05/24/2025 Administered Social History Tobacco Use: Social History [...] Miscellaneous: Marital status: 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 Section Notes: Nonsmoker; no sig alcohol Nonsmoker; no sig alcohol Nonsmoker; no sig alcohol Nonsmoker; no sig alcohol Nonsmoker; no sig alcohol Problems Problem Type SNOMED Code ICD Code Onset Dates Problem Status W/U Status Risk Notes Problem Diverticulitis of colon (417117935) Diverticulitis of large intestine without perforation or abscess without bleeding (K57.32) Active confirmed Problem Screening for malignant neoplasm of colon (984147490) Encounter for screening for malignant neoplasm of colon (Z12.11) Active confirmed Problem Iron deficiency anemia (59934619) Iron deficiency anemia, unspecified iron deficiency anemia type (D50.9) Active confirmed Problem Reflux esophagitis (987026296) Reflux esophagitis (K21.0) Active confirmed Problem Méndez esophagus (070874924) 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 Problem Colorectal cancer (6747991924) Colorectal cancer (C19) Active confirmed Problem Méndez's esophagus (108453456) 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 Problem Gastroesophageal reflux disease with esophagitis (disorder) (117798408) Gastroesophageal reflux disease with esophagitis without hemorrhage (K21.00) Active confirmed Vital Signs Temperature 98.4 degrees Fahrenheit 05/24/2025 Blood pressure diastolic 01 mm Hg 05/24/2025 Height 73 in 05/24/2025 Blood pressure systolic 001 mm Hg 05/24/2025 Weight 197.2 lbs 05/24/2025 BMI 26.01 kg/m2 05/24/2025 Procedures Procedure Date Ordered Date Performed Result Body Sit e UPPER GI ENDOSCOPY 05/24/2025 N/A Encounters Encounter Location Date Provider Diagnosis [facility] [address] [place] [address] 05/24/2025 Johnathan Giang Encounter for screen ing [...] Name Order Date UPPER GI ENDOSCOPY 05/24/2025 Future Test Test Name Order Date UPPER GI ENDOSCOPY 06/25/2018 COLONOSCOPY 06/25/2018 UPPER GI ENDOSCOPY 11/13/2021 Next Appt Details Provider Name:Johnathan Giang , 07/17/2025 02:40:00 PM, [address] [place] [address] , [place], [place], [phone], Insurance Providers Payer Name Payer Address Payer Phone Subscriber Number Group Number Insured Name Patient Relationship to Insured Coverage Start Date Coverage End Date MEDICARE OF [place] [address] [place] [address] [phone] [id number] MICHAEL KIDD Self - patient is the insured [employer] [address] [place] [address] [phone] [id number] MARTI MICHAEL Self - patient is the insured Medical (General) History Medical History History ICD Code Screening colonoscopy 02-14- 009- negative except for mild sigmoid diverticulosis and internal hemorrhoids Diverticulitis on CT scan 2015- treated with inpatient and outpatient antibiotics NIDDM Hyperlipidemia Denies [place],CVA,Lung disease,renal disease HTN Iron def anemia- EGD in 08/08 19-small HH, mild esophagitis and small area of Méndez's-no dysplasia, duodenal biopsies were negative for celiac disease; neg colonoscopy in 07/2018. The anemia was probably related to his mild esophagitis and regular blood donations EGD 12/2021 with a small area of Méndez's but no dysplasia or esophagitis, and a minimal hiatal hernia Surgical History Surgery Date(Month/Year) Surgery for a deviated septum Shoulder surgery Wrist surgery Knee surgery Tonsillectomy Inguinal hernia Hammer toe- right foot on the middle toe Left hand trigger finger
--- NOTE | 2025-07-11 13:20 | HO.ANESPROP2 ---
Documented by User: Jenna Chinchilla NP 07/11/25 13:25 HPI - Anesthesia Eval Consult details Narrative: 69yo M for Upper Endoscopy Cardiac optimized ([facility] [place] consulted during [facility] admit - see below). Outpatient stress negative [facility] admit 06/16-06/17/25 Hospital course Patient was evaluated by Cardiology and EKG redemonstrated first-degree AV block Outpatient cardiology follow-up Chest pain likely secondary to gastric etiology given his established Méndez's esophagus with prompt resolution. No concerns of acute ACS noted. Patient deemed hemodynamically stable for discharge. No changes in meds for chronic medical conditions have been made, patient will follow-up with GI for his endoscopy which is scheduled on July 17. Anesthesia Pre-Procedure Meds Is the patient on any of the following meds?: GLP1/DPP4 PMFSH Active Problems Active Problems: All Active Problems Chronic hip pain (Acute) PAD (peripheral artery disease) (Acute) First degree heart block (Acute) Barretts esophagus (Acute) Foot infection (Acute) Hammertoe of right foot (Acute) Erectile dysfunction (Acute) Cellulitis (Acute) Osteomyelitis (Acute) Hematoma of right third toe (Acute) History of left knee surgery (Acute) Lumbar spondylosis (Acute) Encounter for annual wellness visit (AWV) in Medicare patient (Acute) Dizziness (Acute) Acute sinusitis (Acute) Peyronie's disease (Acute) BPH (benign prostatic hyperplasia) (Acute) Difficulty urinating (Acute) Neuritis of right ulnar nerve (Acute) Arthritis of left knee (Acute) Knee pain (Acute) Diabetes (Acute) Bronchitis (Acute) Dermatitis of external ear (Acute) Tick bite (Acute) Sinusitis (Acute) Hearing loss (Acute) Dupuytren's disease of palm of right hand (Acute) Dupuytren's disease of palm of left hand (Acute) Trigger finger, left little finger (Acute) Dupuytren's contracture (Acute) CKD (chronic kidney disease) stage 3, GFR 30-59 ml/min (Acute) Golfers elbow of left upper extremity (Acute) Physical exam (Acute) Screening PSA (prostate specific antigen) (Acute) Left knee pain (Acute) Elevated BUN (Acute) Physical exam (Acute) Bradycardia (Acute) PVC (premature ventricular contraction) (Acute) Elbow pain, left (Acute) HTN (hypertension) (Acute) Type 2 diabetes mellitus with diabetic polyneuropathy (Acute) Hyperlipidemia LDL goal <100 (Acute) Past Medical History Medical History (Updated 07/16/25 @ 11:00 by Giovanni Henriquez [facility]) PAD (peripheral artery disease) Erectile dysfunction Peyronie's disease Hematoma of right third toe Diabetes GERD (gastroesophageal reflux disease) Barretts esophagus Patellofemoral arthritis of left knee Type 2 diabetes mellitus with diabetic polyneuropathy Subjective memory complaints Enlarged prostate Renal insufficiency Iron deficiency Hyperlipidemia HTN (hypertension) Hyperlipidemia LDL goal <100 Family History Family History Father Diabetes Mother Lung cancer Son No problems noted. Son No problems noted. Son No problems noted. Son No problems noted. Son No problems noted. Son No problems noted. Daughter No problems noted. Daughter No problems noted. Paternal Grandmother Diabetes Family history of problems with anesthesia: No Surgical History Surgical History (Updated 07/12/25 @ 11:30 by Carey Sims RN) S/P trigger finger release (05/19/22) History of right inguinal hernia repair History of left knee surgery History of shoulder surgery History of tonsillectomy History of nasal surgery Hx of esophagogastroduodenoscopy (2021) Hx of colonoscopy History of foot surgery History of Problems with Anesthesia: No Social History Social History (Updated 07/12/25 @ 13:13 by Carey Sims, LOS) Household Members: Spouse Housing: House Do you presently have visiting nurse or other home services: No Alcohol intake: current Alcohol intake frequency: holidays/special occasions only Alcohol type: beer, wine, hard liquor and other Patient Tobacco Use Status: Never used Tobacco e-Cigarette/Vaping Use: Never Used Second Hand Smoke Exposure: No Use of substances other than those prescribed or required for medical reasons: No Have you been hit, kicked, punched, or otherwise hurt by someone within the past year? If so, by whom?: No Are you DNR?: No Advance Directives: No (will bring dos) Advance Directives Information Provided: No Advance Directives on File: No service: Yes Current occupational status: retired Cognitive needs: No Hearing needs: No Vision needs: Yes Meds Allergies Allergy/AdvReac Type Severity Reaction Status Date / Time No Known Allergies (No Known Allergy Verified 07/17/25 08:46 Allergies*) Home Medications ?Medication ?Instructions ?Recorded ?Confirmed ?Last Taken ?Type multivitamin 1 tab PO BEDTIME 06/06/20 07/17/25 03/22/25 History omeprazole 20 mg capsule,delayed 20 mg PO DAILY@0630 06/06/20 07/17/25 07/17/25 History release cetirizine 10 mg tablet (All Day 10 mg PO BEDTIME Allergy Symptoms 02/12/23 07/17/25 Unknown History Allergy (cetirizine)) atorvastatin 20 mg tablet 20 mg PO BEDTIME 03/23/25 07/17/25 03/23/25 History ferrous sulfate 325 mg (65 mg 325 mg PO BEDTIME 03/23/25 07/17/25 03/22/25 History iron) tablet fluticasone propionate 50 1 spray intranasal BID PRN Allergy 03/23/25 07/17/25 Unknown History mcg/actuation nasal Symptoms spray,suspension dulaglutide 3 mg/0.5 mL 3 mg subcut COLLINS 06/16/25 07/17/25 07/09/25 History subcutaneous pen injector (Trulicity) lisinopril 10 mg tablet 10 mg PO BEDTIME 06/16/25 07/17/25 Unknown History tadalafil 5 mg tablet 5 mg PO BEDTIME 06/16/25 07/17/25 Unknown History omega 2-jkb-gdc-fish oil 1,000 mg 1 cap PO BID 07/12/25 07/17/25 07/10/25 History (120 mg-180 mg) capsule (Fish Oil) Exam Narrative Narrative: EKG 05/2025 Vent. Rate : 69 BPM Atrial Rate : 69 BPM P-R Int : 308 ms QRS Dur : 114 ms QT Int : 404 ms P-R-T Axes : 26 -42 32 degrees QTcB Int : 432 ms Sinus rhythm with 1st degree A-V block Left axis deviation Moderate voltage criteria for LVH, may be normal variant ( R in aVL , Curtis product ) Abnormal ECG When compared with ECG of 16-Jun-2025 16:51, [place] shift [place] cardiolite stress test 06/2025 IMPRESSION: 1. Myocardial perfusion imaging study shows likely normal myocardial perfusion. 2. Gated LVEF is 56 sent. 3. Transient ischemic dilatation not present. EKG revealed negative for ischemia. Assessment and Plan Assessment Anesthesia Assessment: Chart Reviewed Final Anesthetic Review Family History of Problems with Anesthesia: No History of Problems with Anesthesia: No Documented by User: Vinh Rizzo MD 07/17/25 09:35 [facility] Past Medical History Medical History (Updated 07/16/25 @ 11:00 by Giovanni Henriquez [facility]) PAD (peripheral artery disease) Erectile dysfunction Peyronie's disease Hematoma of right third toe Diabetes GERD (gastroesophageal reflux disease) Barretts esophagus Patellofemoral arthritis of left knee Type 2 diabetes mellitus with diabetic polyneuropathy Subjective memory complaints Enlarged prostate Renal insufficiency Iron deficiency Hyperlipidemia HTN (hypertension) Hyperlipidemia LDL goal <100 Family History Family History Father Diabetes Mother Lung cancer Son No problems noted. Son No problems noted. Son No problems noted. Son No problems noted. Son No problems noted. Son No problems noted. Daughter No problems noted. Daughter No problems noted. Paternal Grandmother Diabetes Surgical History Surgical History (Updated 07/12/25 @ 11:30 by Carey Sims RN) S/P trigger finger release (05/19/22) History of right inguinal hernia repair History of left knee surgery History of shoulder surgery History of tonsillectomy History of nasal surgery Hx of esophagogastroduodenoscopy (2021) Hx of colonoscopy History of foot surgery Social History Social History (Updated 07/12/25 @ 13:13 by Carey Sims RN) Household Members: Spouse Housing: House Do you presently have visiting nurse or other home services: No Alcohol intake: current Alcohol intake frequency: holidays/special occasions only Alcohol type: beer, wine, hard liquor and other Patient Tobacco Use Status: Never used Tobacco e-Cigarette/Vaping Use: Never Used Second Hand Smoke Exposure: No Use of substances other than those prescribed or required for medical reasons: No Have you been hit, kicked, punched, or otherwise hurt by someone within the past year? If so, by whom?: No Are you DNR?: No Advance Directives: No (will bring dos) Advance Directives Information Provided: No Advance Directives on File: No service: Yes Current occupational status: retired Cognitive needs: No Hearing needs: No Vision needs: Yes Meds Allergies Allergy/AdvReac Type Severity Reaction Status Date / Time No Known Allergies (No Known Allergy Verified 07/17/25 08:46 Allergies*) Home Medications ?Medication ?Instructions ?Recorded ?Confirmed ?Last Taken ?Type multivitamin 1 tab PO BEDTIME 06/06/20 07/17/25 03/22/25 History omeprazole 20 mg capsule,delayed 20 mg PO DAILY@0630 06/06/20 07/17/25 07/17/25 History release cetirizine 10 mg tablet (All Day 10 mg PO BEDTIME Allergy Symptoms 02/12/23 07/17/25 Unknown History Allergy (cetirizine)) atorvastatin 20 mg tablet 20 mg PO BEDTIME 03/23/25 07/17/25 03/23/25 History ferrous sulfate 325 mg (65 mg 325 mg PO BEDTIME 03/23/25 07/17/25 03/22/25 History iron) tablet fluticasone propionate 50 1 spray intranasal BID PRN Allergy 03/23/25 07/17/25 Unknown History mcg/actuation nasal Symptoms spray,suspension dulaglutide 3 mg/0.5 mL 3 mg subcut COLLINS 06/16/25 07/17/25 07/09/25 History subcutaneous pen injector (Trulicity) lisinopril 10 mg tablet 10 mg PO BEDTIME 06/16/25 07/17/25 Unknown History tadalafil 5 mg tablet 5 mg PO BEDTIME 06/16/25 07/17/25 Unknown History omega 6-fxp-wmi-fish oil 1,000 mg 1 cap PO BID 07/12/25 07/17/25 07/10/25 History (120 mg-180 mg) capsule (Fish Oil) Exam Airway Mallampati Class: III TM Dist: >3cm Neck ROM: Full Loose/Missing/Broken Teeth: No Heart: RRR Lungs: CTA Assessment and Plan Assessment Anesthesia Assessment: Anesthesia Plan Discussed Final Anesthetic Review NPO: Yes ASA Class: II Final Preanesthetic Review: No Changes in Pt Med Stat, Meds/Allgs Chart Reviewed, Consent Obtained/Reviewed and Anes Risks/Benef Reviewed Patient Risk: Low Procedure Risk: Low Anesthetic Plan Anesthetic Plan: GA and MAC: Disposition: Standard PACU
[2025-07-12 11:35] VITALS: BMI 26.0
[2025-07-12 13:11] VITALS: BMI 25.5
[2025-07-17 08:48] VITALS: BMI 25.4
[2025-07-17 08:58] VITALS: BP 116/64; PULSE 77; RESP 18; TEMP 36.3; O2SAT 97
[2025-07-17 08:59] LABS: Glucose, Whole Blood 200 mg/dL (60-115)
[2025-07-17] MEDS: Lactated Ringers 1,000 ML 100 ML IVCONT (09:08)
[2025-07-17 10:05] VITALS: BP 119/65; PULSE 76; RESP 17; TEMP 36.8; O2SAT 99
[2025-07-17 10:10] VITALS: BP 117/66; PULSE 76; RESP 20; O2SAT 95
--- NOTE | 2025-07-17 10:12 | P.BOP_ITS ---
Brief Operative Note Date of Service: 07/17/25 Pre-op diagnosis: Méndez's Post-op diagnosis: other (Same, Hiatal hernia) Procedure: EGD with biopsies Surgeon: Johnathan Giang MD Anesthesia: MAC Was an Silviculturist used for this Procedure?: No Estimated blood loss (mL): 2.0 Pathology: other (A. EG Junction at 38cm) Condition: stable Disposition: PACU
[2025-07-17 10:20] VITALS: BP 121/68; PULSE 69; RESP 12; O2SAT 97
[2025-07-17 10:30] VITALS: BP 120/67; PULSE 70; RESP 18; O2SAT 98
[2025-07-17 10:35] VITALS: BP 116/75; PULSE 69; RESP 12; TEMP 36.9; O2SAT 98
--- NOTE | 2025-07-17 10:57 | OP_ITS ---
DATE OF SERVICE: 07/17/2025 SURGEON: Johnathan Giang MD INDICATIONS: The patient presents for evaluation of gastroesophageal reflux and Méndez's esophagus. Full consent has been obtained from him for this, including risks of bleeding and perforation. PREOPERATIVE DIAGNOSIS: POSTOPERATIVE DIAGNOSIS: PROCEDURE PERFORMED: Esophagogastroduodenoscopy with biopsies. ESTIMATED BLOOD LOSS: COMPLICATIONS: ANESTHESIA: Medication used, monitored anesthesia care. ASSISTANTS: SPECIMENS: PREOPERATIVE DIAGNOSES: Gastroesophageal reflux and Méndez's esophagus. POSTOPERATIVE DIAGNOSES: Gastroesophageal reflux and Méndez's esophagus, hiatal hernia. DESCRIPTION OF PROCEDURE: The patient was placed in the left lateral decubitus position. The Olympus video gastroscope was passed in the posterior oropharynx and upper esophagus under direct vision. The scope was passed slowly to the distal esophagus. The gastroesophageal junction appeared at 38 cm. There was some slight irregularity consistent with reflux and possibly very small, less than 1 cm areas of Méndez's mucosa. There were no lesions nor esophagitis. The scope entered the stomach. There was a small hiatal hernia. The scope was advanced to the pylorus and the duodenum was cannulated to the descending portion. The duodenum including the bulb appeared normal without mass or ulceration. The scope was withdrawn back to the stomach. The gastric antrum and body appeared normal with good peristalsis. The scope was retroflexed visualizing the proximal stomach carefully, which appeared normal, without any sign of mass or ulceration. The scope was straightened. The scope was withdrawn back to the esophagus. Biopsies were obtained at the EG junction at 38 cm. Proximal to this, the esophageal mucosa appeared normal. Scope was withdrawn from the patient. He tolerated the procedure well and was returned to the recovery area in stable condition. IMPRESSION: History of Méndez's esophagus and gastroesophageal reflux, hiatal hernia. PLAN: The results of the biopsies will be checked. I would recommend a repeat upper endoscopy in 2028 when he has his next screening colonoscopy. He will continue his daily omeprazole. He was advised not to use any aspirin NSAIDs, nor fish oil for 1 week. He will otherwise see me as needed. MD [facility] Grey/MARY LOU / [id number] MTDD
== END 2025-07-17 10:54 | disposition home or self-care (01) ==
PROVIDERS: PCP Nurse Practitioner Family; Visit Provider Internal Medicine
PROC: 0DJ08ZZ Inspection of Upper Intestinal Tract, Via Natural or Artificial Opening Endoscopic (ICD-10-PCS; CPT 43235; principal; 2025-07-17 09:30)
DX: K21.00 Gastro-esophageal reflux disease with esophagitis, without bleeding (principal); Z87.19 Personal history of other diseases of the digestive system; K46.9 Unspecified abdominal hernia without obstruction or gangrene; E11.9 Type 2 diabetes mellitus without complications
CPT/HCPCS: 43239; 82947; 88305; 88313; J2003; J2250; J2704